=== PATIENT | male | born 1980 | race Caucasian/White ===

== ENCOUNTER 2024-12-19 06:16 | Inpatient (IN) | payer MEDICAID, SELFPAY ==
[2024-12-19 06:17] VITALS: BP 142/97; PULSE 78; RESP 18; TEMP 36.5; O2SAT 98
[2024-12-19 06:18] VITALS: BMI 49.3
--- NOTE | 2024-12-19 06:42 | PD.EDRME ---
Rapid Medical Screening Exam RME Arrival date/time: 12/19/24 06:16 Chief Complaint: General Adult/Misc Complain Vital signs: Vital Signs Temperature 97.7 F 12/19/24 06:17 Pulse Rate 78 12/19/24 06:17 Respiratory Rate 18 12/19/24 06:17 Blood Pressure 142/97 H 12/19/24 06:17 Pulse Oximetry (%) 98 12/19/24 06:17 Oxygen Delivery Method Room Air 12/19/24 06:17 98% room air Vital signs reviewed by provider: Yes RME Narrative: 44-year-old male presents to the emergency department with a chief complaint of not being able to swallow, patient is not able to tell me why he is not able to swallow. Family member tells me that he has difficulty swallowing food and fluids. Continues to consume food and fluids. Continues to urinate. Patient is awaiting a procedure. Dr. Esparza is the patient's doctor.
--- NOTE | 2024-12-19 07:08 | PD.EDADULT ---
ED General RME/HPI General Chief complaint: General Adult/Misc Complain Stated complaint: SORE THROAT, CANT SWALLOW,SOB Time Seen by Provider: 12/19/24 07:01 Arrival date/time: 12/19/24 06:16 RME / HPI RME / HPI narrative: 44-year-old male presents to the emergency department with a chief complaint of not being able to swallow, patient is not able to tell me why he is not able to swallow. Family member tells me that he has difficulty swallowing food and fluids. Continues to consume food and fluids. Continues to urinate. Patient is awaiting a procedure. Dr. Esparza is the patient's doctor. DR. PARR MAIN ED EVALUATION 44 year old male with history of environmental allergies (currently on OTC allergy medication) and hyperlipidemia presents to the ED with a 2-week history of dry mouth and throat. Symptoms have progressively worsened over the past several days, with increasing difficulty swallowing both fluids and solids. He reports an episode last night where he attempted to eat cream of chicken soup, but was unable to swallow it. This morning, he experienced pain while trying to drink water, which he spat out due to discomfort and difficulty. Denies associated nausea, vomiting, fever, chills, headache, or abdominal pain. Related Data Allergies Allergy/AdvReac Type Severity Reaction Status Date / Time No Known Allergies Allergy Verified 12/19/24 06:17 Review of Systems Review of Systems Systems Reviewed: All systems reviewed, normal except as documented Past Medical History Social History SMOKING STATUS: Never smoker ED Exam Narrative Physical exam: Constitutional: Awake, alert, nontoxic, no acute distress, obese HEENT: NC, AT, EOMI, dry lips Neck: Supple CV: RRR, no m/r/g Lungs: CTAB, no w/r/r, no respiratory distress. Abd: Soft, NT, NT, no HSM noted to palpation Extremities: No deformities Neuro: AAOx3 Skin: Warm, dry, intact Course Course Course Narrative: 0830h: Speech therapist has evaluated the patient and reports there may be a possible stricture. Recommended EGD or esophagram to better assess. 1110h: Patient with hypokalemia 2.8. Was unable to complete esophagram as unable to swallow sufficient barium. Given worsening symptoms with inability to tolerate fluids today and low potassium, would benefit from admission for further evaluation. Will discuss with hospitalist team. Discussed with hospitalist team for admission. They will be down to see patient. Quality Measures none Orders Category Date Time Status Admit to Inpatient Status Routine Admission 12/19/24 12:00 Active Patient Condition Routine Admission 12/19/24 12:00 Ordered COVID-19 Screening Questionnaire NOW Care 12/19/24 11:[address] Screening NOW Care 12/19/24 12:09 Active Decision to Admit X1 Care 12/19/24 11:14 Active Insert IV STAT Care 12/19/24 07:32 Active Notify provider NEEDED Care 12/19/24 12:[address] soft tissue neck chest w Stat Exams 12/19/24 12:08 Ordered XR esophogram standard Stat Exams 12/19/24 08:32 Completed CBC Stat Lab 12/19/24 06:59 Completed Comprehensive Metabolic Panel Stat Lab 12/19/24 06:59 Completed Lipase Stat Lab 12/19/24 06:59 Completed Urinalysis Stat Lab 12/19/24 06:44 Ordered POTASSIUM CHL 10 mEq IVPB [Kcl Ivpb] Med 12/19/24 07:38 Discontinued 10 meq in 100 ml IV Q1H Ringers Lactated 1000 ml [Lactated Ringers] 1,000 ml Med 12/19/24 12:10 Active IV 999 mls/hr Sodium Chloride 0.9% 1000 ml [Ns] 1,000 ml Med 12/19/24 07:39 Active IV 125 mls/hr Code Status Routine Oth 12/19/24 12:00 Ordered Vital Signs Vital signs: Vital Signs Temperature 97.7 F 12/19/24 06:17 Pulse Rate 78 12/19/24 06:17 Respiratory Rate 18 12/19/24 06:17 Blood Pressure 142/97 H 12/19/24 06:17 Pulse Oximetry (%) 98 12/19/24 06:17 Oxygen Delivery Method Room Air 12/19/24 06:17 Pulse ox is 98% on room air which is adequate. Critical Care Time Critical Care Time Critical Care Time: No Discharge Plan Plan Patient Disposition: Admit Acute Care w/in Hospital Prescriptions/Referrals Referrals: Abdiel Esparza MD [Primary Care Provider] - In 1 week Problem List Clinical Impression: Dysphagia, Hypokalemia Patient/Caregiver Discharge Instructions Print Language: Romansh Stand Alone Forms: Judy Award Info., Patient Portal Info Letter MDM Narrative MDM hospital course: I, Alia Freeman, am scribing for and in the presence of Dr. Parr. Clinical Information Provided by patient Medical Records Reviewed None No previous ED visits for review Meds/Rx Considered, not Ordered None Labs/Rad/Tests considered, not Ordered None Chronic Illness/Social Conditions which may negatively complicate care or outcome(s)-explain: None or not applicable EKG EKG not done Lab Interpretation Labs: see narrative above Imaging Imaging interpretation: see narrative above Radiology reports / interpretation(s): Ordering Physician: Adela Parr MD Date of Service: 12/19/24 Procedure(s): XR esophogram standard Accession Number(s): [id number] cc: Abdiel Esparza MD; Pantera Majano MD; Adela Parr MD~ Examination: Esophagram standard Upright PA chest single view Soft tissue lateral neck single view 10 spot fluoroscopic films of the esophagus Date and time: December 19, 2024 0948 hours INDICATIONS: Difficulty swallowing beginning one week ago. TECHNIQUE AND FINDINGS: Upright PA chest single view demonstrates normal heart size, lungs are clear Soft tissue lateral neck demonstrates normal epiglottis, no distention hypopharynx The patient could not cooperate to swallow sufficient amounts of barium, continuous coughing IMPRESSION: The patient could not cooperate to swallow sufficient amounts of barium with continuous coughing, consider endoscopy follow-up as clinical warranted Fluoroscopy 0.4 minutes radiation dose 42.11 milligray 10 spot fluoroscopic films Dictated By: Pantera Majano MD Signed By: <Electronically signed by Pantera Majano MD in OV> 12/19/24 1057 Medication Administration(s) Medication Administration History Sodium Chloride (Ns) 1,000 mls @ 125 mls/hr IV .Q8H ROBBIE Stop: 01/18/25 07:38 Last Admin: 12/19/24 08:59 Dose: 125 mls/hr Documented By: CONNOR Lactated Ringer's (Lactated Ringers) 1,000 mls @ 999 mls/hr IV .Q1H1M ONE Stop: 12/19/24 13:10 Discontinued Medications Potassium Chloride (Kcl Ivpb) 10 meq in 100 mls @ 100 mls/hr IV Q1H ROBBIE Stop: 12/19/24 09:37 Last Admin: 12/19/24 10:43 Dose: 100 mls/hr Documented By: Infusion: 12/19/24 10:39 Dose: Infused Documented By: Admin: 12/19/24 08:59 Dose: 100 mls/hr Documented By: CONNOR See above Diagnosis Most likely dx, and/or detailed dx discussion: Dysphagia Hypokalemia Dispositon Disposition: Admit
[2024-12-19 07:20] LABS: Basophils # (Auto) 0.1 Thou/mm3 (0.0-0.2); Basophils % (Auto) 1 % (0-2.5); Eosinophils # (Auto) 0.4 Thou/mm3 (0.0-0.5); Eosinophils % (Auto) 4 % (0-10); Hematocrit 43.1 % (41.0-53.0); Hemoglobin 14.6 g/dL (13.5-16.0); Immature Granulocytes Auto 0.03 Thou/mm3 (0.00-0.00); Lymphocytes # (Auto) 3.8 Thou/mm3 (1.0-4.8); Lymphocytes % (Auto) 31 % (10-50); Mean Corpuscular HGB Conc 33.9 g/dl (31.0-37.0); Mean Corpuscular Hemoglobin 30.7 pg (25.0-35.0); Mean Corpuscular Volume 91 fL (80-100); Monocytes # (Auto) 1.0 Thou/mm3 (0.0-0.8); Monocytes % (Auto) 8 % (0-12); Neutrophils # (Auto) 6.8 Thou/mm3 (1.8-7.7); Neutrophils % (Auto) 56 % (37-80); Nucleated Red Blood Cell # 0.00 Thou/mm3 (0.00-0.00); Nucleated Red Blood Cell % 0 /100 WBC (0); Platelet Count 365 Thou/mm3 (140-440); RDW Standard Deviation 45.0 fL (35.1-43.9); Red Blood Count 4.75 Miln/mm3 (4.50-5.90); White Blood Count 12.2 Thou/mm3 (3.8-10.6)
[2024-12-19 07:33] LABS: Alanine Aminotransferase 49 U/L (10-49); Albumin, Serum 4.5 gm/dL (3.5-5.0); Albumin/Globulin Ratio 1.5 (1.2-2.2); Alkaline Phosphatase 78 U/L (46-116); Anion Gap 14 (7-16); Aspartate Amino Transferase 40 U/L (0-34); BUN/Creatinine Ratio 8 Ratio (12-20); Bilirubin,Total 1.0 mg/dL (0.3-1.2); Blood Urea Nitrogen 9 mg/dL (9-23); Calcium 10.2 mg/dL (8.3-10.6); Calcium (Corrected) 10.2 mg/dL (8.5-10.1); Carbon Dioxide 24.2 mMol/L (20.0-31.0); Chloride 105 mMol/L (98-107); Creatinine (Component) 1.2 mg/dL (0.6-1.3); Estimated Creatinine Clearance 106.4 mL/min (>60); Globulin 3.0 gm/dL (2.3-3.5); Glucose 116 mg/dL (74-106); Lipase 38 U/L (12-53); Osmolality,Calculated 284 (275-295); Potassium 2.8 mMol/L (3.4-5.1); Sodium 143 mMol/L (136-145); Total Protein 7.5 gm/dL (5.7-8.2); eGFR > 60 See Note
[2024-12-19 08:12] VITALS: BP 151/92; PULSE 87; RESP 18; TEMP 36.8; O2SAT 96
--- NOTE | 2024-12-19 08:32 | XR_ITS ---
Examination: Esophagram standard Upright PA chest single view Soft tissue lateral neck single view 10 spot fluoroscopic films of the esophagus Date and time: December 19, 2024 0948 hours INDICATIONS: Difficulty swallowing beginning one week ago. TECHNIQUE AND FINDINGS: Upright PA chest single view demonstrates normal heart size, lungs are clear Soft tissue lateral neck demonstrates normal epiglottis, no distention hypopharynx The patient could not cooperate to swallow sufficient amounts of barium, continuous coughing IMPRESSION: The patient could not cooperate to swallow sufficient amounts of barium with continuous coughing, consider endoscopy follow-up as clinical warranted Fluoroscopy 0.4 minutes radiation dose 42.11 milligray 10 spot fluoroscopic films
[2024-12-19] MEDS: SODIUM CHLORIDE 0.9% 1000 ML 1,000 ML 125 ML IV (08:59)
[2024-12-19] MEDS: POTASSIUM CHL 10 mEq IVPB 10 MEQ/100 ML BAG 100 MEQ IV ×2 (08:59→10:43)
--- NOTE | 2024-12-19 10:10 | PCS.ST ---
Bed swallow evaluation completed by WEB ADMINISTRATOR. Spoke with Dr. Randall. Recommendation to change Modified Baruim Swallow order to an Esophagram for esophageal symptoms. ST services will follow up as needed.
[2024-12-19 10:44] VITALS: BP 139/87; PULSE 86; RESP 18; TEMP 36.6; O2SAT 94
--- NOTE | 2024-12-19 12:08 | XR_ITS ---
Examination: CT soft tissue neck with intravenous contrast CT chest with intravenous contrast 2-D sagittal and coronal reconstructions Exam date and time: December 19, 2024 1406 hours INDICATIONS: Worsening difficulty swallowing beginning one month ago CTDI:vol (mGy) 52.9 DLP: (mGycm) 1682 Technique: Multiple axial sections of the soft tissue neck thorax have been obtained. Sections have been obtained, 3 mm slice thickness. Mediastinal and lung density settings have been obtained. Intravenous contrast administered, 60 cc Isovue-370. 2-D sagittal, coronal images obtained. Low dose protocols were performed. One or more of the following dose reduction techniques were used; automated exposure control, adjustment of the mA and/or KV according to patient size, use of iterative reconstruction technique. Findings: Chronic left maxillary sinus disease Symmetrical nasopharynx oropharynx No pathologic carotid triangle lymphadenopathy The larynx appears normal Thyroid lobes are not enlarged Normal epiglottis No thoracic degenerative aneurysm dilatation No pulmonary artery emboli Mild left anterior descending coronary artery calcification No paratracheal tracheobronchial or bronchopulmonary adenopathy The esophagus does not appear dilated 2 mm pulmonary nodule right upper lobe No visualized liver or splenic lesion No pancreatic mass Minimal wall thickening involving the distal esophagus Normal adrenal glands Kidneys partially visualized no hydronephrosis Moderate thoracic spondylosis IMPRESSION: No soft tissue neck mass Cervical esophagus is not dilated No mediastinal lymphadenopathy 2 mm pulmonary nodule right upper lobe No pneumonia or pulmonary edema or pleural disease Thoracic esophagus does not appear distended Mild wall thickening distal esophagus, consider reflux esophagitis Given the patient's presentation, consider standard fluoroscopically guided esophagram follow-up
[2024-12-19 13:17] VITALS: BP 138/90; PULSE 84; RESP 18; TEMP 36.6; O2SAT 96
[2024-12-19] MEDS: RINGERS LACTATED 1000 ML 1,000 ML 999 ML IV (13:23)
--- NOTE | 2024-12-19 13:25 | EKG_ITS ---
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
--- NOTE | 2024-12-19 14:07 | PC.CC ---
Patient is a 44 year-old male who presents to the hospital for Dysphagia. MAINTENANCE MACHINISTTenisha and ASWSara made [id number] contact with patient. MAINTENANCE MACHINIST introduced self, role, and reason for visit. Patient appeared alert and oriented to self, location, and situation. MAINTENANCE MACHINIST discussed limits of confidentiality. Patient was pleasant and engaged in initial assessment. Patient confirmed information on demographics and reports to living at home with his mother, Shobha Dye . Per patient, his mother is his medical decision maker. At home patient reports he ambulates independently and is able to complete his own ADLs. Patient does not require any DME and is not a dialysis patient. Patient's primary provider is Abdiel Esparza his pharmacy of choice is [facility]. Upon discharge patient plans to return back home. account services representative to follow up with any discharge needs.
--- NOTE | 2024-12-19 15:56 | ESHP_ITS ---
<Statement entered by Hugh Handley MD - 12/20/24 13:46> I have reviewed the note and agree with the resident's assessment & plan with exceptions as below. I have personally reviewed labs, imaging, home meds/prior records, examined the patient, formulated and discussed management plan with the IM team. Patient examined at bedside today. Patient has bee experiencing worsening dysphagia, unsure if it is oropharyngeal, mechanical. Patient does have history of having adenoids removed, and chronic allergic rhinitis, however He is unsure why he is having the symptoms. He denies any recent travel, changes to his diet, however says that he has had some weight loss since the onset of the symptoms which has been about 2 weeks. Says he was able to tolerate some food and liquids, however is worsening. He does endorse some changes to his voice as well. Denies any smoking, substance abuse, and alcohol at this time. He does say that he has been sick with sinus infections in the past and has taken antibiotics for the past 3 months. He says he used to have an ENT, however that physician has retired. Will consult GI and order a CT soft tissue neck for further evaluation after patient has failed fluoroscopy. Patient may need EGD and further evaluation from speech therapy. Unlikely that there is a mass of some sort and the distal esophagus due to his risk factors, however we will need to further assess with EGD and patient may need modified barium swallow to evaluate for any stenosis. He does take omeprazole chronically. Repeat hematology and chemistry in AM. #Dysphagia DDx: Oropharyngeal, mechanical obstruction, esophageal stenosis, hiatal hernia Plan: ? GI consulted, appreciate recommendations ? CT soft tissue neck ? Maintenance fluids ? Bedside blood glucose every 6 hours ? Speech therapy referral Hugh Handley, PGY-2 Internal Medicine Documentation for date of: 12/19/24 HPI History of Present Illness History of present illness: 44 year old male with PMHx of adenoidectomy x2 and tonsillectomy as a child, GERD, many seasonal allergies, asthma, hypercholesterolemia, and epilepsy as a child (most recent seizure aged 9) who presents with progressive dysphagia and mouth dryness for the last two weeks. Upon initial evaluation patient was seen with his mother in the room. He speaks with a lisp and denies history of learning disorder or developmental delay. Patient states 2-3 weeks ago he began having trouble eating solids and he may have lost 12 -20 lbs since this time. He denies drooling but endorses difficulty initiating swallowing and episodes of words not coming out right that he attributes to a very dry mouth/throat, his mother endorses the story. One week ago soup became more difficult for him to swallow noodles not possible . He is unable to throw up when he is nauseas and has episodes of dry heaving without nasal regurgitation. He is now unable to drink water and feels short of breath when he attempts. He describes discomfort in his upper throat and no discomfort in his lower chest when discussing trouble swallowing. ED Course Summary: Patient presented with hypokalemia 2.8 and dry mouth. Was unable to complete esophagram as unable to swallow sufficient barium. IV NS, LR and K+ was administered in ED. Patient sent for CT neck. Speech therapist has evaluated the patient and reports there may be a possible stricture. Recommended EGD or esophagram to better assess. Medical Hx: Obesity, allergies, asthma, GERD, epileptic aged 4-10 Medications: Lipitor, flucatisone QD Allergies: Pollen, dust, causes coughing Surgical history: Adenoidectomy x2 as a child, tonsillectomy as a child Fhx: Brother 10 years ago durin dialysis. Father during heart procedure. Mother has T2Dm and Ton's esophagus Soc Hx: Lives with his mom for the last 10 years in [facility] [place] to a lot of [employer]. They have a dog and a cat. 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 graduated highschool, denies history of learning disability or deelopmental delay Alc: denies Smoking: denies Recreational drug: denies All 12 systems reviewed and were negative except otherwise stated in HPI. Patient admitted for dysphagia work up. Exam Vital Signs Temp Pulse Resp BP Pulse Ox O2 Del Method 97.8 F 84 18 138/90 H 96 Room Air 12/19/24 13:17 12/19/24 13:17 12/19/24 13:17 12/19/24 13:17 12/19/24 13:17 12/19/24 13:17 Narrative Exam Constitutional: Awake, alert, nontoxic, no acute distress, obese HEENT: NC, AT, EOMI, dry lips, narrow glottis, diffusely patchy white tongue able to be scraped off Neck: Supple, no masses felt, no thryomegaly noted, no abnormal or enlarged lymph nodes felt around the clavicle. CV: RRR, no m/r/g Lungs: CTAB, no w/r/r, no respiratory distress. Abd: Soft, NT, NT, no HSM noted to palpation Extremities: No deformities, no edema or ashes. Neuro: AAOx3 Skin: Warm, dry, intact Results: Labs 12/20/24 05:12 12/20/24 05:12 Labs: Short CBC 12/19/24 Range/Units 06:59 WBC 12.2 H (3.8-10.6) Thou/mm3 Hgb 14.6 (13.5-16.0) g/dL Hct 43.1 (41.0-53.0) % Plt Count 365 (140-440) Thou/mm3 BMP 12/19/24 06:59 Sodium 143 Potassium 2.8 L Chloride 105 Carbon Dioxide 24.2 BUN 9 Creatinine 1.2 Glucose 116 H Calcium 10.2 Liver Function 12/19/24 Range/Units 06:59 Total Bilirubin 1.0 (0.3-1.2) mg/dL AST 40 H (0-34) U/L ALT 49 (10-49) U/L Alkaline Phosphatase 78 (46-116) U/L Albumin 4.5 (3.5-5.0) gm/dL Quality Measures Quality Measures none Medications Home Medications and Allergies Home Medications ?Medication ?Instructions ?Recorded ?Confirmed ?Type atorvastatin 20 mg tablet 40 mg PO DAILY 12/19/2412/07 History fluticasone propionate 50 2 spray intranasal DAILY 12/19/24 History mcg/actuation nasal spray,suspension ipratropium bromide 42 mcg (0.06 2 spray intranasal BI D 12/19/24 12/19/24 History %) nasal spray montelukast 10 mg tablet 10 mg PO DAILY 12/19/2412/07 History omeprazole 40 mg capsule,delayed 40 mg PO DAILY 12/19/24 History release Allergies Allergy/AdvReac Type Severity Reaction Status Date / Time No Known Allergies Allergy Verified 12/19/24 06:17 Visit Medications Acetaminophen (Acetaminophen 325 Mg Tablet) 650 mg PO Q6H PRN PRN Reason: Fever >101.5 or pain 1-3 Stop: 01/18/25 13:19 Albuterol/Ipratropium (Albuterol/Ipratropium (Duoneb) Rt Maria Elena 3 Ml Nebu) 3 ml INH PRN PRN PRN Reason: asthma Stop: 01/18/25 13:19 Dextrose (Dextrose 50%-Water Inj 50 Ml Syringe) 25 ml IV Q15MIN PRN PRN Reason: BG 50-70 responsive npo pt Stop: 01/18/25 13:27 Dextrose (Dextrose 50%-Water Inj 50 Ml Syringe) 50 ml IV Q15MIN PRN PRN Reason: BG <50 OR BG <70 & pt unresponsive Stop: 01/18/25 13:27 Glucagon (Glucagon Inj 1 Mg Vial) 1 mg IM Q15MIN PRN PRN Reason: BG <70, and no IV access Heparin Sodium (Porcine) (Heparin Sod Inj 5000 Unit/Ml Vial) 5,000 unit SC Q12HR [facility] Stop: 01/02/25 20:59 Sodium Chloride (Ns) 1,000 mls @ 125 mls/hr IV .Q8H ROBBIE Stop: 01/18/25 07:38 Last Admin: 12/19/24 08:59 Dose: 125 mls/hr Potassium Chloride/Dextrose/Sod Cl (Kcl 20 Meq/L In D5-1/2ns) 20 meq in 1,000 mls @ 75 mls/hr IV .[id number] [facility] Stop: 12/20/24 02:49 Ondansetron HCl (Ondansetron Inj 2 Mg/Ml Inj 2 Ml) 4 mg IVP Q6H PRN; Protocol PRN Reason: NAUSEA OR VOMITING Stop: 01/18/25 13:19 Pantoprazole Sodium (Pantoprazole Inj 40 Mg Vial) 40 mg IVP QDAY [facility] Stop: 01/19/25 08:59 Discontinued Medications Potassium Chloride (Kcl Ivpb) 10 meq in 100 mls @ 100 mls/hr IV Q1H ROBBIE Stop: 12/19/24 09:37 Last Infusion: 12/19/24 12:05 Dose: Infused Lactated Ringer's (Lactated Ringers) 1,000 mls @ 999 mls/hr IV .Q1H1M ONE Stop: 12/19/24 13:10 Last Admin: 12/19/24 13:23 Dose: 999 mls/hr Assessment & Plan Plan 44 year old male with PMHx of adenoidectomy x2 and tonsillectomy as a child, GERD, many seasonal allergies, asthma, hypercholesterolemia, and epilepsy as a child (most recent seizure aged 9) who presents with progressive dysphagia and mouth dryness for the last two weeks. Patient now unable to tolerate liquids and presents with hypokalemia most likely secondary to nutritional deficiencies currently admitted for dysphagia work up. #Dysphagia: oropharyngeal vs esophageal Patient has progressive inability to swallow solid to liquid foods over the course of 2 weeks. Unable to perform barium swallow in ED. Neck CT showed mild wall thickening of distal esophagus. Speech and swallow eval reported possible stricture with globus sensation as well indicating possible esophageal etiology. Patient has history of GERD therefore barrets esophagus/stricutre included in the differential. Other differentials can include fungal as evidenced by white scrapeable tissue covering surface of his tongue vs autoimmune such as sicca syndrome contributing to his mouth's dryness. Plan: -Repeat barium swallow -Monitor for signs of hypoxia -Diet NPO #Hypokalemia Most likely 2/2 nutritional deficiency. Fluids and potassium given in ED Plan: -Continue to monitor -Replete when K+< 3.5 #Dry mouth #C/f rachid 2/2 flucatisone use Dry mouth is most likely a result of poor fluid intake from dysphagia, however could be a result of sicca syndrome. Rachid most likely due to daily flucatisone use. Plan: -Autoimmunue work up -Flucanazole mouth wash once patient not a choking risk #GERD Plan: -Continue home meds when tolerating PO or consider IV formulary -Omeprazole 40mg QD #Seasonal allergies, #asthma Plan: -Continue home meds when tolerating PO or consider IV formulary -Montelukast 10mg PO QD -Ipratropium bromide intranasal BID -Flucatisone propionate #Hypercholesterolemia Plan: -Continue home meds when tolerating PO: atorvastatin 40mg QD Health Maintenance: DVT prophylaxis: Heparin Diet: NPO Guo: None Lines: PIV Supplemental O2: RA, nasal cannula if needed CODE STATUS: Full Disposition: Admitted for dysphagia work up Patient seen and reviewed with attending Dr. Antoine and supervising resident Dr. Ender Rosa MD PGY-1 Attending Provider Attestation/Addendum I have discussed and was present for the essential components of the history, physical examination, diagnosis, and treatment plan with the resident. I agree with the patient's care as documented by the resident and amended herein by me. Hugo Antoine DO. Although this document has been carefully reviewed, there may still be some phonetic and other typographical errors. These errors are purely grammatical due to imperfections in the software program and should not be construed in any way to compromise the substance of the patient's medical care during this visit. Patient admitted for dysphagia, started on PPI, gastroenterology consulted, CT neck ordered to rule out any possible mechanical cause versus mass effect etc. Patient will likely need an EGD prior to discharge.
--- NOTE | 2024-12-19 16:09 | PC.NURSE ---
REPORT GIVEN TO NICOLE DURANT AT [facility]
[2024-12-19 16:52] VITALS: BMI 49.3
[2024-12-19] MEDS: KCL 20 mEq/L in D5-1/2NS 20 MEQ/1,000 ML BAG 75 MEQ IV (17:29)
[2024-12-19 20:00] VITALS: BP 124/75; PULSE 81; RESP 18; TEMP 36; O2SAT 98
--- NOTE | 2024-12-19 21:22 | PD.IMCONS ---
HPI Data of Consult Requesting Physician: Ronak Antoine DO Primary Care Provider: Abdiel Esparza MD Consult Narrative Reason for consult: Dysphagia History of present illness: 44-year-old male came to the emergency room because of difficulty swallowing Last night he tried to eat cream of wheat soup and he threw it back up And attempted esophagram in the hospital also resulted in a lot of coffee and patient could not swallow CT scan of the soft tissue neck is negative Thickening which is mild of the distal esophageal lining cc:: cc: Ronak Antoine DO Review of Systems Review of Systems Systems Reviewed: All systems reviewed, normal except as documented Meds Home Medications and Allergies Home Medications ?Medication ?Instructions ?Recorded ?Confirmed ?Type atorvastatin 20 mg tablet 40 mg PO DAILY 12/19/24 12/19/24 History fluticasone propionate 50 2 spray intranasal DAILY 12/19/24 12/19/24 History mcg/actuation nasal spray,suspension ipratropium bromide 42 mcg (0.06 2 spray intranasal BID 12/19/24 12/19/24 History %) nasal spray montelukast 10 mg tablet 10 mg PO DAILY 12/19/24 12/19/24 History omeprazole 40 mg capsule,delayed 40 mg PO DAILY 12/19/24 12/19/24 History release Allergies Allergy/AdvReac Type Severity Reaction Status Date / Time No Known Allergies Allergy Verified 12/19/24 06:17 Exam Vital Signs Temp Pulse Resp BP Pulse Ox O2 Del Method 96.8 F 81 18 124/75 98 Room Air 12/19/24 20:00 12/19/24 20:00 12/19/24 20:00 12/19/24 20:00 12/19/24 20:00 12/19/24 20:00 Constitutional Comments: Alert oriented Routine Respiratory Exam Comments: Normal to auscultation Routine Abdominal Exam Comments: Soft nontender Results Labs 12/19/24 06:59 12/19/24 06:59 Labs: Short CBC 12/19/24 Range/Units 06:59 WBC 12.2 H (3.8-10.6) Thou/mm3 Hgb 14.6 (13.5-16.0) g/dL Hct 43.1 (41.0-53.0) % Plt Count 365 (140-440) Thou/mm3 BMP 12/19/24 06:59 Sodium 143 Potassium 2.8 L Chloride 105 Carbon Dioxide 24.2 BUN 9 Creatinine 1.2 Glucose 116 H Calcium 10.2 Liver Function 12/19/24 Range/Units 06:59 Total Bilirubin 1.0 (0.3-1.2) mg/dL AST 40 H (0-34) U/L ALT 49 (10-49) U/L Alkaline Phosphatase 78 (46-116) U/L Albumin 4.5 (3.5-5.0) gm/dL Assessment and Plan Additional Assessment & Plan Additional Plan: # Progressive dysphagia Plan Fiberoptic esophagogastroduodenoscopy with possible biopsy possible therapeutic intervention under intravenous moderate sedation N.p.o. midnight tonight except meds Which are scheduled for tomorrow afternoon Thank you once again for the opportunity to participate in the care of this patient
[2024-12-19] MEDS: HEPARIN SOD INJ 5000 UNIT/ML VIAL SC (22:40)
[2024-12-20] VITALS (15 sets, daily range): BP systolic 91–133; BP diastolic 66–87; PULSE 71–115; RESP 12–20; TEMP 36–36.8; O2SAT 92–100; BMI 49.4
[2024-12-20 05:34] LABS: Basophils # (Auto) 0.1 Thou/mm3 (0.0-0.2); Basophils % (Auto) 1 % (0-2.5); Eosinophils # (Auto) 0.4 Thou/mm3 (0.0-0.5); Eosinophils % (Auto) 4 % (0-10); Hematocrit 37.2 % (41.0-53.0); Hemoglobin 12.2 g/dL (13.5-16.0); Immature Granulocytes Auto 0.01 Thou/mm3 (0.00-0.00); Lymphocytes # (Auto) 3.0 Thou/mm3 (1.0-4.8); Lymphocytes % (Auto) 33 % (10-50); Mean Corpuscular HGB Conc 32.8 g/dl (31.0-37.0); Mean Corpuscular Hemoglobin 30.6 pg (25.0-35.0); Mean Corpuscular Volume 93 fL (80-100); Monocytes # (Auto) 0.8 Thou/mm3 (0.0-0.8); Monocytes % (Auto) 8 % (0-12); Neutrophils # (Auto) 5.1 Thou/mm3 (1.8-7.7); Neutrophils % (Auto) 55 % (37-80); Nucleated Red Blood Cell # 0.00 Thou/mm3 (0.00-0.00); Nucleated Red Blood Cell % 0 /100 WBC (0); Platelet Count 283 Thou/mm3 (140-440); RDW Standard Deviation 47.2 fL (35.1-43.9); Red Blood Count 3.99 Miln/mm3 (4.50-5.90); White Blood Count 9.3 Thou/mm3 (3.8-10.6)
[2024-12-20] MEDS: SODIUM CHLORIDE 0.9% 1000 ML 1,000 ML 125 ML IV ×2 (06:45→21:49)
[2024-12-20 06:59] LABS: INR 1.1 (0.9-1.3); Partial Thromboplastin Time 25.9 Seconds (22.0-36.0); Prothrombin Time 12.3 Seconds (9.0-12.2)
[2024-12-20 07:50] LABS: Alanine Aminotransferase 41 U/L (10-49); Albumin, Serum 3.8 gm/dL (3.5-5.0); Albumin/Globulin Ratio 1.5 (1.2-2.2); Alkaline Phosphatase 61 U/L (46-116); Anion Gap 10 (7-16); Aspartate Amino Transferase 30 U/L (0-34); BUN/Creatinine Ratio 8 Ratio (12-20); Bilirubin,Total 0.8 mg/dL (0.3-1.2); Blood Urea Nitrogen 7 mg/dL (9-23); Calcium 9.2 mg/dL (8.3-10.6); Calcium (Corrected) 9.4 mg/dL (8.5-10.1); Carbon Dioxide 26.0 mMol/L (20.0-31.0); Chloride 109 mMol/L (98-107); Creatinine (Component) 0.9 mg/dL (0.6-1.3); Estimated Creatinine Clearance 141.9 mL/min (>60); Globulin 2.5 gm/dL (2.3-3.5); Glucose 110 mg/dL (74-106); Magnesium 1.7 mg/dL (1.6-2.6); Osmolality,Calculated 287 (275-295); Phosphorous 2.0 mg/dL (2.4-5.1); Potassium 3.4 mMol/L (3.4-5.1); Sodium 145 mMol/L (136-145); Thyroid Stimulating Hormone 1.02 uIU/mL (0.55-4.78); Total Protein 6.3 gm/dL (5.7-8.2); eGFR > 60 See Note
--- NOTE | 2024-12-20 09:29 | ESPR_ITS ---
<Statement entered by Hugh Handley MD - 12/20/24 14:41> I have reviewed the note and agree with the resident's assessment & plan with exceptions as below. I have personally reviewed labs, imaging, home meds/prior records, examined the patient, formulated and discussed management plan with the IM team. Patient examined at bedside today. No acute overnight events. Patient had CT soft tissue scan which had not showed any lymphadenopathy or masses at the time. GI on consult, appreciate recommendations. Patient to get EGD later today by Dr. Campos. Continuing maintenance fluids. Patient may need modified barium swallow for further workup. Speech on consult, appreciate recommendations. Repeat hematology and chemistry in the a.m. Hugh Handley, PGY-2 Internal Medicine Documentation for date of: 12/20/24 Subjective Subjective Interval history: Patient examined bedside breathing fine on RA. He is in good spirits. When clarifying his weight loss, the patient is hungry but acknowledged that losing some weight (confirms 20lbs in the last 2 weeks) is in some aspects good for him if done in a healthy manner. He is agreeable to the EGD procedure planned by Dr. Campos today. He reports some ongoing occasional hoarseness he attributes to mouth dryness, but it does not bother him too much. He denies fevers, chills, night sweats, chest pain, discomfort. Exam Vital Signs Temp Pulse Resp BP Pulse Ox O2 Del Method 97.1 F 71 19 114/75 96 Room Air 12/20/24 08:00 12/20/24 08:00 12/20/24 08:00 12/20/24 08:00 12/20/24 08:00 12/20/24 08:00 Narrative Exam Constitutional: Awake, alert, nontoxic, no acute distress, obese HEENT: NC, AT, EOMI, dry lips, narrow glottis, (improved) patchy white tongue able to be scraped off, no lateral tongue plaques or bucosal [place] striae noted. Neck: Supple, no masses felt, no thryomegaly noted, no abnormal or enlarged lymph nodes felt around the clavicle. CV: RRR, no m/r/g Lungs: CTAB, no w/r/r, no respiratory distress. Abd: Soft, NT, NT, no HSM noted to palpation Extremities: No deformities, no edema or ashes. Neuro: AAOx3 Skin: Warm, dry, intact Objective Labs 12/21/24 05:10 12/21/24 05:10 Labs: Laboratory Results - last 24 hr 12/20/24 12/20/24 05:12 06:21 WBC 9.3 RBC 3.99 L Hgb 12.2 L D Hct 37.2 L MCV 93 MCH 30.6 MCHC 32.8 RDW Std Deviation 47.2 H Plt Count 283 D Neut % (Auto) 55 Lymph % (Auto) 33 [place] % (Auto) 8 Eos % (Auto) 4 Baso % (Auto) 1 Neut # (Auto) 5.1 Lymph # (Auto) 3.0 [place] # (Auto) 0.8 Eos # (Auto) 0.4 Baso # (Auto) 0.1 Immature Gran # (Auto) 0.01 H Absolute Nucleated RBC 0.00 Immature Gran % 0 Nucleated RBC % 0 PT 12.3 H INR 1.1 APTT 25.9 Sodium 145 Potassium 3.4 D Chloride 109 H Carbon Dioxide 26.0 Anion Gap 10 BUN 7 L Creatinine 0.9 Estim Creat Clear Calc 141.9 eGFR > 60 BUN/Creatinine Ratio 8 L Glucose 110 H Calculated Osmolality 287 Calcium 9.2 Corrected Calcium 9.4 Phosphorus 2.0 L Magnesium 1.7 Total Bilirubin 0.8 AST 30 ALT 41 Alkaline Phosphatase 61 D Total Protein 6.3 Albumin 3.8 D Globulin 2.5 Albumin/Globulin Ratio 1.5 TSH 1.02 Quality Measures Quality Measures none Assessment & Plan Assessment Current Active Medications: Generic Name Dose Route Start Last Admin Trade Name Freq PRN Reason Stop Dose Admin Acetaminophen 650 mg 12/19/24 13:20 Acetaminophen 325 Mg Tablet PO 01/18/25 13:19 Q6H PRN Fever >101.5 or pain 1-3 Albuterol/Ipratropium 3 ml 12/19/24 13:20 Albuterol/Ipratropium (Duoneb) Rt Maria Elena 3 Ml Nebu INH 01/18/25 13:19 PRN PRN asthma Atorvastatin Calcium 40 mg 12/19/24 21:00 12/19/24 22:41 Atorvastatin Calcium 20 Mg Tablet PO 01/18/25 20:59 Not Given HS ROBBIE Dextrose 25 ml 12/19/24 13:28 Dextrose 50%-Water Inj 50 Ml Syringe IV 01/18/25 13:27 Q15MIN PRN BG 50-70 responsive npo pt Dextrose 50 ml 12/19/24 13:28 Dextrose 50%-Water Inj 50 Ml Syringe IV 01/18/25 13:27 Q15MIN PRN BG <50 OR BG <70 & pt unresponsive Glucagon 1 mg 12/19/24 13:28 Glucagon Inj 1 Mg Vial IM Q15MIN PRN BG <70, and no IV access Heparin Sodium (Porcine) 5,000 unit 12/19/24 21:00 12/19/24 22:40 Heparin Sod Inj 5000 Unit/Ml Vial SC 01/02/25 20:59 5,000 unit Q12HR ROBBIE Administration Sodium Chloride 1,000 mls @ 125 mls/hr 12/19/24 07:39 12/20/24 06:45 Ns IV 01/18/25 07:38 125 mls/hr .Q8H ROBBIE Administration Potassium Phosphate 15 mmol in 250 mls @ 62.5 mls/hr 12/20/24 08:39 Pot Phos 15 Mmol In Ns 250 Ml IV 12/20/24 12:38 X1 ONE Ondansetron HCl 4 mg 12/19/24 13:20 Ondansetron Inj 2 Mg/Ml Inj 2 Ml IVP 01/18/25 13:19 Q6H PRN NAUSEA OR VOMITING Protocol Pantoprazole Sodium 40 mg 12/20/24 09:00 Pantoprazole Inj 40 Mg Vial IVP 01/19/25 08:59 QDAY ROBBIE Plan 44 year old male with PMHx of adenoidectomy x2 and tonsillectomy as a child, GERD, many seasonal allergies, asthma, hypercholesterolemia, and epilepsy as a child (most recent seizure aged 9) who presents with progressive dysphagia and mouth dryness for the last two weeks. Patient now unable to tolerate liquids and presents with hypokalemia most likely secondary to nutritional deficiencies currently admitted for dysphagia work up. Hypokalemia has since resolved. Hypophosphatemia is being treated. Awaiting EGD 12/20. #Dysphagia: oropharyngeal vs esophageal Patient has progressive inability to swallow solid to liquid foods over the course of 2 weeks. Unable to perform barium swallow in ED. Neck CT showed mild wall thickening of distal esophagus. Speech and swallow eval reported possible stricture with globus sensation as well indicating possible esophageal etiology. Patient has history of GERD therefore barrets esophagus/stricture included in the differential. Other differentials can include fungal as evidenced by white scrapeable tissue covering surface of his tongue vs autoimmune such as sicca syndrome contributing to his mouth's dryness. Plan: -GI consulted: Awaiting EGD 12/20 -Repeat barium swallow -Monitor for signs of hypoxia -Diet NPO #Hypophosphatemia Most likely 2/2 nutritional deficiency. Fluids and phosphate given Plan: -Continue to monitor -Replete when P-<2.4 #Hypokalemia -Resolved Most likely 2/2 nutritional deficiency. Fluids and potassium given in ED Plan: -Continue to monitor -Replete when K+< 3.5 #Dry mouth #C/f rachid 2/2 flucatisone use Dry mouth is most likely a result of poor fluid intake from dysphagia, however could be a result of sicca syndrome. Rachid most likely due to daily flucatisone use. Plan: -Autoimmunue work up -Flucanazole mouth wash once patient not a choking risk #GERD Plan: -Continue home meds when tolerating PO or consider IV formulary -Omeprazole 40mg QD #Seasonal allergies, #asthma Plan: -Continue home meds when tolerating PO or consider IV formulary -Montelukast 10mg PO QD -Ipratropium bromide intranasal BID -Flucatisone propionate #Hypercholesterolemia Plan: -Continue home meds when tolerating PO: atorvastatin 40mg QD Health Maintenance: DVT prophylaxis: Heparin Diet: NPO Guo: None Lines: PIV Supplemental O2: RA, nasal cannula if needed CODE STATUS: Full Disposition: Admitted for dysphagia work up Patient seen and reviewed with attending Dr. Antoine and supervising resident Dr. Handley. Note written by Bernardo Rosa MD PGY-1 Attending Provider Attestation/Addendum I have discussed and was present for the essential components of the history, physical examination, diagnosis, and treatment plan with the resident. I agree with the patient's care as documented by the resident and amended herein by me. Hugo Antoine DO. Although this document has been carefully reviewed, there may still be some phonetic and other typographical errors. These errors are purely grammatical due to imperfections in the software program and should not be construed in any way to compromise the substance of the patient's medical care during this visit. Patient seen and evaluated this AM. No acute events overnight, EGD pending later this afternoon for the patient's dysphagia. CT soft tissue of the patient's neck did not demonstrate any mass or other physical abnormalities in the area.
[2024-12-20] MEDS: POT PHOS 15 mMol in NS 250 ML 15 MMOL/250 ML BAG 62.5 MMOL IV (09:35)
[2024-12-20] MEDS: HEPARIN SOD INJ 5000 UNIT/ML VIAL SC ×2 (09:35→21:11)
[2024-12-20 14:13] LABS: Cholesterol 116 mg/dL (132-200); Triglycerides 81 mg/dL (30-150)
[2024-12-20 14:49] LABS: Cardiac Risk Estimate 5.3 RATIO (4.0-6.7); HDL Cholesterol 22 mg/dL (40-60); LDL Cholesterol,Calculated 78 mg/dL (0-130)
[2024-12-20 18:02] LABS: Amorphous Crystals,Urine Present (Absent); Bilirubin,Urine Negative (Negative); Blood,Urine Negative (Negative); Budding Yeast,Urine Present; Collection Type, Urine Clean Catch; Color,Urine Orange (Lt Yel-Yel); Glucose, Urine Negative (Negative); Ketones,Urine 1+ (Negative); Leukocyte Esterase,Urine Negative (Negative); Nitrite,Urine Negative (Negative); PH,Urine 6.0 (5.0-7.0); Protein,Urine Trace (Neg - Trace); RBC,Urine 16 /hpf (0-3); Specific Gravity,Urine 1.036 (1.001-1.035); Squamous Epithelial Cell,Urine 2 /hpf (0-5); Urobilinogen,Urine 3.0 mg/dL (0.0-1.0); WBC,Urine 156 /hpf (0-5)
[2024-12-20 18:17] LABS: Clarity,Urine Turbid (Clear/Hazy)
--- NOTE | 2024-12-20 19:06 | PC.NURSE ---
Pt to endocopy via gurney.
--- NOTE | 2024-12-20 20:14 | SUR.PHASEI ---
Pt. arrived to recovery via gurney, eyes open, AAOx3, VSS, lung sounds clear, equal expansion enrrique., no c/o pain or nausea at this time. Report received from Luanne DURANT.
--- NOTE | 2024-12-20 20:40 | SUR.PHASEI ---
Pt. transferred to room 369 via PAUL serra, no c/o pain or nausea at this time, pt. tolerating ice chips, IV saline flushed and locked, Nayely DURANT assumed care of pt.
--- NOTE | 2024-12-20 20:44 | PC.NURSE ---
Pt back to room from endoscopy via gurney. No S/Sx of pain or discomfort, placed back in bed comfortably.
[2024-12-20] MEDS: ATORVASTATIN CALCIUM 20 MG TABLET 40 MG PO (21:11)
[2024-12-21] VITALS: BP 101/69; PULSE 83; RESP 17; TEMP 36.1; O2SAT 92
[2024-12-21 04:00] VITALS: BP 103/65; PULSE 65; RESP 16; TEMP 36.1; O2SAT 97
[2024-12-21] MEDS: SODIUM CHLORIDE 0.9% 1000 ML 1,000 ML 125 ML IV ×3 (05:46→22:37)
--- NOTE | 2024-12-21 05:51 | PC.NURSE ---
Pt hasn't had a bowel movement since 12/18/24. Pt has been on NPO diet since admission until dinner last night after EGD procedure when he was started on mechanically altered diet. Pt did not tolerate diet due to dysphagia so ended up just drinking apple juice. Dr. Sharp was made aware. MD to let the day team know.
[2024-12-21 05:58] LABS: Basophils # (Auto) 0.1 Thou/mm3 (0.0-0.2); Basophils % (Auto) 1 % (0-2.5); Eosinophils # (Auto) 0.4 Thou/mm3 (0.0-0.5); Eosinophils % (Auto) 4 % (0-10); Hematocrit 35.4 % (41.0-53.0); Hemoglobin 11.9 g/dL (13.5-16.0); Immature Granulocytes Auto 0.01 Thou/mm3 (0.00-0.00); Lymphocytes # (Auto) 3.6 Thou/mm3 (1.0-4.8); Lymphocytes % (Auto) 45 % (10-50); Mean Corpuscular HGB Conc 33.6 g/dl (31.0-37.0); Mean Corpuscular Hemoglobin 31.6 pg (25.0-35.0); Mean Corpuscular Volume 94 fL (80-100); Monocytes # (Auto) 0.6 Thou/mm3 (0.0-0.8); Monocytes % (Auto) 8 % (0-12); Neutrophils # (Auto) 3.4 Thou/mm3 (1.8-7.7); Neutrophils % (Auto) 42 % (37-80); Nucleated Red Blood Cell # 0.00 Thou/mm3 (0.00-0.00); Nucleated Red Blood Cell % 0 /100 WBC (0); Platelet Count 263 Thou/mm3 (140-440); RDW Standard Deviation 47.6 fL (35.1-43.9); Red Blood Count 3.77 Miln/mm3 (4.50-5.90); White Blood Count 8.0 Thou/mm3 (3.8-10.6)
[2024-12-21 06:07] LABS: INR 1.1 (0.9-1.3); Prothrombin Time 12.4 Seconds (9.0-12.2)
[2024-12-21 06:19] LABS: Alanine Aminotransferase 45 U/L (10-49); Albumin, Serum 3.3 gm/dL (3.5-5.0); Albumin/Globulin Ratio 1.4 (1.2-2.2); Alkaline Phosphatase 58 U/L (46-116); Anion Gap 10 (7-16); Aspartate Amino Transferase 30 U/L (0-34); BUN/Creatinine Ratio 7 Ratio (12-20); Bilirubin,Total 0.6 mg/dL (0.3-1.2); Blood Urea Nitrogen 6 mg/dL (9-23); Calcium 8.5 mg/dL (8.3-10.6); Calcium (Corrected) 9.1 mg/dL (8.5-10.1); Carbon Dioxide 24.4 mMol/L (20.0-31.0); Cardiac Risk Estimate 5.4 RATIO (4.0-6.7); Chloride 111 mMol/L (98-107); Cholesterol 108 mg/dL (132-200); Creatinine (Component) 0.9 mg/dL (0.6-1.3); Estimated Creatinine Clearance 139.9 mL/min (>60); Globulin 2.3 gm/dL (2.3-3.5); Glucose 87 mg/dL (74-106); HDL Cholesterol 20 mg/dL (40-60); LDL Cholesterol,Calculated 72 mg/dL (0-130); Magnesium 1.7 mg/dL (1.6-2.6); Osmolality,Calculated 285 (275-295); Phosphorous 2.9 mg/dL (2.4-5.1); Potassium 3.5 mMol/L (3.4-5.1); Sodium 145 mMol/L (136-145); Total Protein 5.6 gm/dL (5.7-8.2); Triglycerides 79 mg/dL (30-150); eGFR > 60 See Note
[2024-12-21 08:00] VITALS: BP 116/80; PULSE 77; RESP 16; TEMP 36.3; O2SAT 97
[2024-12-21] MEDS: HEPARIN SOD INJ 5000 UNIT/ML VIAL SC ×2 (08:40→21:14)
[2024-12-21] MEDS: POLYETHYLENE GLYCOL 17 GM PACKET PO (09:33)
[2024-12-21] MEDS: DOCUSATE SOD 100 MG CAPSULE PO (09:33)
[2024-12-21 12:00] VITALS: BP 113/79; PULSE 85; RESP 17; TEMP 36.4; O2SAT 96
[2024-12-21] MEDS: NA SU/NAHCO3/KC/PEG (Golytely) 4,000 ML BTL 4000 ML PO (12:37)
--- NOTE | 2024-12-21 15:24 | ESPR_ITS ---
<Statement entered by Uriel Cast MD - 01/04/25 15:05> I reviewed above note and agree with findings and plans. I have also personally examined the patient with medicine team and went over assessment and plan with medical team including industrial design intern and resident physician. <Statement entered by Hugh Handley MD - 12/21/24 15:56> I have reviewed the note and agree with the resident's assessment & plan with exceptions as below. I have personally reviewed labs, imaging, home meds/prior records, examined the patient, formulated and discussed management plan with the IM team. Patient examined at bedside today. Patient reports that he is feeling much better.Patient to get colonoscopy, is on clear liquid diet. EGD showed angiodysplastic ulcers that were cauterized. Acute blood loss anemia cannot be explained fully which will require patient to have colonoscopy. Hemoglobin today is 12, will initiate anemia workup. Repeat hematology and chemistry in AM. Continue with GoLytely prep. Hugh Handley, PGY-2 Internal Medicine Documentation for date of: 12/21/24 Subjective Subjective Interval history: Patient examined bedside breathing fine on RA. He is in good spirits. He is able to eat and had no problems with his sausage and eggs. He had a BM He is agreeable to the colonoscopy procedure planned by Dr. Campos today. He reports hoarseness has resolved. He denies fevers, chills, night sweats, chest pain, discomfort. Exam Vital Signs Temp Pulse Resp BP Pulse Ox O2 Del Method O2 Flow Rate 97.6 F 85 17 113/79 96 Room Air 3 12/21/24 12:12/21/24 12:12/21/24 12:12/21/24 12:12/21/24 12:12/21/24 12:12/20/24 20:05 Narrative Exam Constitutional: Awake, alert, nontoxic, no acute distress, obese, eating HEENT: NC, AT, EOMI, dry lips, narrow glottis, tongue pink and moist, no whiteness noted. Neck: Supple, no masses felt, no thryomegaly noted, no abnormal or enlarged lymph nodes felt around the clavicle. CV: RRR, no m/r/g Lungs: CTAB, no w/r/r, no respiratory distress. Abd: Soft, NT, NT, no HSM noted to palpation Extremities: No deformities, no edema or ashes. Neuro: AAOx3 Skin: Warm, dry, intact Objective Labs 12/21/24 05:10 12/21/24 05:10 Labs: Laboratory Results - last 24 hr 12/20/24 12/21/24 18:00 05:10 WBC 8.0 RBC 3.77 L Hgb 11.9 L Hct 35.4 L MCV 94 MCH 31.6 MCHC 33.6 RDW Std Deviation 47.6 H Plt Count 263 Neut % (Auto) 42 Lymph % (Auto) 45 [place] % (Auto) 8 Eos % (Auto) 4 Baso % (Auto) 1 Neut # (Auto) 3.4 Lymph # (Auto) 3.6 [place] # (Auto) 0.6 Eos # (Auto) 0.4 Baso # (Auto) 0.1 Immature Gran # (Auto) 0.01 H Absolute Nucleated RBC 0.00 Immature Gran % 0 Nucleated RBC % 0 PT 12.4 H INR 1.1 Sodium 145 Potassium 3.5 Chloride 111 H Carbon Dioxide 24.4 Anion Gap 10 BUN 6 L Creatinine 0.9 Estim Creat Clear Calc 139.9 eGFR > 60 BUN/Creatinine Ratio 7 L Glucose 87 Calculated Osmolality 285 Calcium 8.5 Corrected Calcium 9.1 Phosphorus 2.9 Magnesium 1.7 Total Bilirubin 0.6 AST 30 ALT 45 Alkaline Phosphatase 58 Total Protein 5.6 L Albumin 3.3 L D Globulin 2.3 Albumin/Globulin Ratio 1.4 Triglycerides 79 Cholesterol 108 L LDL Cholesterol, Calc 72 HDL Cholesterol 20 L Cholesterol/HDL Ratio 5.4 Ur Collection Type Clean Catch Urine Color [place] A Urine Clarity Turbid A Urine pH 6.0 Ur Specific [place] 1.036 H Urine Protein Trace Urine Glucose (UA) Negative Urine Ketones 1+ A Urine Blood Negative Urine Nitrite Negative Urine Bilirubin Negative Urine Urobilinogen (Auto) 3.0 Ur Leukocyte Esterase Negative Urine RBC 16 H Urine WBC 156 H Ur Squamous Epith Cells 2 Amorphous Crystals Present A Urine Bacteria None Urine Yeast (Budding) Present A Quality Measures Quality Measures none Assessment & Plan Assessment Current Active Medications: Generic Name Dose Route Start Last Admin Trade Name Freq PRN Reason Stop Dose Admin Acetaminophen 650 mg 12/19/24 13:20 Acetaminophen 325 Mg Tablet PO 01/18/25 13:19 Q6H PRN Fever >101.5 or pain 1-3 Albuterol/Ipratropium 3 ml 12/19/24 13:20 Albuterol/Ipratropium (Duoneb) Rt Maria Elena 3 Ml Nebu INH 01/18/25 13:19 PRN PRN asthma Atorvastatin Calcium 40 mg 12/19/24 21:00 12/20/24 21:11 Atorvastatin Calcium 20 Mg Tablet PO 01/18/25 20:59 40 mg HS ROBBIE Administration Dextrose 25 ml 12/19/24 13:28 Dextrose 50%-Water Inj 50 Ml Syringe IV 01/18/25 13:27 Q15MIN PRN BG 50-70 responsive npo pt Dextrose 50 ml 12/19/24 13:28 Dextrose 50%-Water Inj 50 Ml Syringe IV 01/18/25 13:27 Q15MIN PRN BG <50 OR BG <70 & pt unresponsive Glucagon 1 mg 12/19/24 13:28 Glucagon Inj 1 Mg Vial IM Q15MIN PRN BG <70, and no IV access Heparin Sodium (Porcine) 5,000 unit 12/19/24 21:00 12/21/24 08:40 Heparin Sod Inj 5000 Unit/Ml Vial SC 01/02/25 20:59 5,000 unit Q12HR ROBBIE Administration Sodium Chloride 1,000 mls @ 125 mls/hr 12/19/24 07:39 12/21/24 05:46 Ns IV 01/18/25 07:38 125 mls/hr .Q8H ROBBIE Administration Ondansetron HCl 4 mg 12/19/24 13:20 Ondansetron Inj 2 Mg/Ml Inj 2 Ml IVP 01/18/25 13:19 Q6H PRN NAUSEA OR VOMITING Protocol Pantoprazole Sodium 40 mg 12/21/24 21:00 Pantoprazole Inj 40 Mg Vial IVP 01/20/25 20:59 BID ROBBIE Plan 44 year old male with PMHx of adenoidectomy x2 and tonsillectomy as a child, GERD, many seasonal allergies, asthma, hypercholesterolemia, and epilepsy as a child (most recent seizure aged 9) who presents with progressive dysphagia and mouth dryness for the last two weeks. Patient now unable to tolerate liquids and presents with hypokalemia most likely secondary to nutritional deficiencies currently admitted for dysphagia work up. Hypokalemia has since resolved. Hypophosphatemia is being treated. Awaiting EGD 12/20. #Acute anemia 2/2 #Upper vs lower GI bleed HgB have acutely dropped since admission from 14.6 --> 11.9. Denies melena and hematemesis, describes stools as loose and brown. RDW:47.6. Less likely PEG due to poor oral intake as evidenced by acute change. C/f GI bleed. EGD cauterized angiodysplasia of stomach. Colonoscopy planned to r/o lower GI bleed. Plan: -Iron panel -GI rec: -GOLYTELY NPO at midnight -Colonoscopy in AM. #Dysphagia - improved after endoscopic dilation Patient has progressive inability to swallow solid to liquid foods over the course of 2 weeks. Unable to perform barium swallow in ED. Neck CT showed mild wall thickening of distal esophagus. Speech and swallow eval reported possible stricture with globus sensation as well indicating possible esophageal etiology. Patient has history of GERD therefore barrets esophagus/stricture included in the differential. Other differentials can include fungal as evidenced by white scrapeable tissue covering surface of his tongue vs autoimmune such as sicca syndrome contributing to his mouth's dryness. Improved after endoscopic dialation. Plan: -GI consulted: Plan for colonoscopy today -Monitor for signs of hypoxia -Diet clear liquid #Hypophosphatemia Most likely 2/2 nutritional deficiency. Fluids and phosphate given Plan: -Continue to monitor -Replete when P-<2.4 #Hypokalemia -Resolved Most likely 2/2 nutritional deficiency. Fluids and potassium given in ED Plan: -Continue to monitor -Replete when K+< 3.5 #Xerostemia - improved #C/f rachid 2/2 flucatisone use - resolved Dry mouth is most likely a result of poor fluid intake from dysphagia, however could be a result of sicca syndrome. Rachid most likely due to daily flucatisone use. Plan: -Autoimmunue work up -Flucanazole mouth wash once patient not a choking risk #GERD Plan: -Continue home meds when tolerating PO or consider IV formulary -Omeprazole 40mg QD #Seasonal allergies, #asthma Plan: -Continue home meds when tolerating PO or consider IV formulary -Montelukast 10mg PO QD -Ipratropium bromide intranasal BID -Flucatisone propionate #Hypercholesterolemia Cholesterol: 108 (L) Plan: -Continue home meds when tolerating PO: atorvastatin 40mg QD Health Maintenance: DVT prophylaxis: Heparin Diet: NPO Guo: None Lines: PIV Supplemental O2: RA, nasal cannula if needed CODE STATUS: Full Disposition: Admitted for dysphagia work up Patient seen and reviewed with attending Dr. Cast and supervising resident Dr. Handley. Note written by Bernardo Rosa MD PGY-1 Attending Provider Attestation/Addendum I have discussed and was present for the essential components of the history, physical examination, diagnosis, and treatment plan with the resident. I agree with the patient's care as documented by the resident and amended herein by me. Hugo Antoine DO. Although this document has been carefully reviewed, there may still be some phonetic and other typographical errors. These errors are purely grammatical due to imperfections in the software program and should not be construed in any way to compromise the substance of the patient's medical care during this visit. Patient seen and evaluated this AM. No acute events overnight, EGD pending later this afternoon for the patient's dysphagia. CT soft tissue of the patient's neck did not demonstrate any mass or other physical abnormalities in the area.
[2024-12-21 16:00] VITALS: BP 123/75; PULSE 77; RESP 18; TEMP 36.2; O2SAT 97
--- NOTE | 2024-12-21 17:54 | PD.IMPROG ---
Documentation for date of: 12/21/24 Subjective Subjective Interval history: Dysphagia has tremendously improved after endoscopic dilatation For further evaluation of his abdominal pain Shelby prep in progress for the colonoscopy a.m. Exam Vital Signs Temp Pulse Resp BP Pulse Ox O2 Del Method O2 Flow Rate 97.2 F 77 18 123/75 97 Room Air 3 12/21/24 16:00 12/21/24 16:00 12/21/24 16:00 12/21/24 16:00 12/21/24 16:00 12/21/24 12:00 12/20/24 20:05 Objective Labs 12/21/24 05:10 12/21/24 05:10 Labs: Laboratory Results - last 24 hr 12/20/24 12/21/24 18:00 05:10 WBC 8.0 RBC 3.77 L Hgb 11.9 L Hct 35.4 L MCV 94 MCH 31.6 MCHC 33.6 RDW Std Deviation 47.6 H Plt Count 263 Neut % (Auto) 42 Lymph % (Auto) 45 [place] % (Auto) 8 Eos % (Auto) 4 Baso % (Auto) 1 Neut # (Auto) 3.4 Lymph # (Auto) 3.6 [place] # (Auto) 0.6 Eos # (Auto) 0.4 Baso # (Auto) 0.1 Immature Gran # (Auto) 0.01 H Absolute Nucleated RBC 0.00 Immature Gran % 0 Nucleated RBC % 0 PT 12.4 H INR 1.1 Sodium 145 Potassium 3.5 Chloride 111 H Carbon Dioxide 24.4 Anion Gap 10 BUN 6 L Creatinine 0.9 Estim Creat Clear Calc 139.9 eGFR > 60 BUN/Creatinine Ratio 7 L Glucose 87 Calculated Osmolality 285 Calcium 8.5 Corrected Calcium 9.1 Phosphorus 2.9 Magnesium 1.7 Total Bilirubin 0.6 AST 30 ALT 45 Alkaline Phosphatase 58 Total Protein 5.6 L Albumin 3.3 L D Globulin 2.3 Albumin/Globulin Ratio 1.4 Triglycerides 79 Cholesterol 108 L LDL Cholesterol, Calc 72 HDL Cholesterol 20 L Cholesterol/HDL Ratio 5.4 Ur Collection Type Clean Catch Urine Color [place] A Urine Clarity Turbid A Urine pH 6.0 Ur Specific [place] 1.036 H Urine Protein Trace Urine Glucose (UA) Negative Urine Ketones 1+ A Urine Blood Negative Urine Nitrite Negative Urine Bilirubin Negative Urine Urobilinogen (Auto) 3.0 Ur Leukocyte Esterase Negative Urine RBC 16 H Urine WBC 156 H Ur Squamous Epith Cells 2 Amorphous Crystals Present A Urine Bacteria None Urine Yeast (Budding) Present A Impressions Impression: # Dysphagia improved after endoscopic dilatation # For further evaluation abdominal pain colonoscopy a.m. Shelby prep in progress # esophageal stricture improved after endoscopic dilatation Colonoscopy a.m. Assessment & Plan A&P Narrative # Progressive dysphagia Plan Fiberoptic esophagogastroduodenoscopy with possible biopsy possible therapeutic intervention under intravenous moderate sedation N.p.o. midnight tonight except meds Which are scheduled for tomorrow afternoon Thank you once again for the opportunity to participate in the care of this patient Time Spent With Patient Time: Total time spent is greater than 50% in coordination of care (as documented) at patient's floor/unit and/or counseling patient:
[2024-12-21 20:00] VITALS: BP 108/71; PULSE 90; RESP 20; TEMP 36.6; O2SAT 92
[2024-12-21] MEDS: ATORVASTATIN CALCIUM 20 MG TABLET 40 MG PO (21:15)
[2024-12-22] VITALS (15 sets, daily range): BP systolic 111–139; BP diastolic 66–83; PULSE 62–100; RESP 16–20; TEMP 36.1–36.7; O2SAT 94–100
[2024-12-22 05:52] LABS: Basophils # (Auto) 0.1 Thou/mm3 (0.0-0.2); Basophils % (Auto) 1 % (0-2.5); Eosinophils # (Auto) 0.3 Thou/mm3 (0.0-0.5); Eosinophils % (Auto) 4 % (0-10); Hematocrit 38.1 % (41.0-53.0); Hemoglobin 12.5 g/dL (13.5-16.0); Immature Granulocytes Auto 0.01 Thou/mm3 (0.00-0.00); Immature Reticulocyte Fraction 13.1 % (2.3-13.4); Lymphocytes # (Auto) 4.0 Thou/mm3 (1.0-4.8); Lymphocytes % (Auto) 47 % (10-50); Mean Corpuscular HGB Conc 32.8 g/dl (31.0-37.0); Mean Corpuscular Hemoglobin 31.1 pg (25.0-35.0); Mean Corpuscular Volume 95 fL (80-100); Monocytes # (Auto) 0.5 Thou/mm3 (0.0-0.8); Monocytes % (Auto) 6 % (0-12); Neutrophils # (Auto) 3.6 Thou/mm3 (1.8-7.7); Neutrophils % (Auto) 42 % (37-80); Nucleated Red Blood Cell # 0.00 Thou/mm3 (0.00-0.00); Nucleated Red Blood Cell % 0 /100 WBC (0); Platelet Count 240 Thou/mm3 (140-440); RDW Standard Deviation 47.8 fL (35.1-43.9); Red Blood Count 4.02 Miln/mm3 (4.50-5.90); Reticulocyte % (Auto) 1.3 % (0.5-1.5); Reticulocyte Absolute Auto 51.9 Biln/L (25.0-75.0); Reticulocyte Hgb Content 37.2 pg (28.0-35.0); White Blood Count 8.5 Thou/mm3 (3.8-10.6)
[2024-12-22 06:04] LABS: INR 1.1 (0.9-1.3); Prothrombin Time 12.1 Seconds (9.0-12.2)
[2024-12-22 06:16] LABS: Path Review Blood Smear Sent to Pathologist
[2024-12-22 06:20] LABS: Alanine Aminotransferase 50 U/L (10-49); Albumin, Serum 3.5 gm/dL (3.5-5.0); Albumin/Globulin Ratio 1.5 (1.2-2.2); Alkaline Phosphatase 62 U/L (46-116); Anion Gap 14 (7-16); Aspartate Amino Transferase 36 U/L (0-34); BUN/Creatinine Ratio 6 Ratio (12-20); Bilirubin,Total 0.6 mg/dL (0.3-1.2); Blood Urea Nitrogen < 5 mg/dL (9-23); Calcium 8.6 mg/dL (8.3-10.6); Calcium (Corrected) 9.0 mg/dL (8.5-10.1); Carbon Dioxide 20.8 mMol/L (20.0-31.0); Chloride 109 mMol/L (98-107); Creatinine (Component) 0.8 mg/dL (0.6-1.3); Estimated Creatinine Clearance 157.4 mL/min (>60); Globulin 2.3 gm/dL (2.3-3.5); Glucose 87 mg/dL (74-106); Magnesium 1.1 mg/dL (1.6-2.6); Osmolality,Calculated 283 (275-295); Phosphorous 2.0 mg/dL (2.4-5.1); Potassium 3.2 mMol/L (3.4-5.1); Sodium 144 mMol/L (136-145); Total Protein 5.8 gm/dL (5.7-8.2); eGFR > 60 See Note
[2024-12-22 06:28] LABS: Ferritin 199 ng/mL (10.5-307.3); Iron 97 mcg/dL (65-175); Percent Iron Saturation 48 % (20-55); Total Iron Binding Capacity 201 mcg/dL (250-425); Unsaturated Iron Binding 104 (225-295)
[2024-12-22] MEDS: POT PHOS 15 mMol in NS 250 ML 15 MMOL/250 ML BAG 62.5 MMOL IV (09:43)
[2024-12-22] MEDS: NAPH,KPH MBDB 1 PACKET (1.5 GM) 2 PACKET PO (09:43)
[2024-12-22] MEDS: HEPARIN SOD INJ 5000 UNIT/ML VIAL SC ×2 (09:44→20:20)
[2024-12-22] MEDS: Magnesium Sulfate 4 GM Ivpb 4 GM/50 ML BAG IV (09:45)
--- NOTE | 2024-12-22 14:55 | PD.RESPRO ---
Documentation for date of: 12/22/24 Subjective Subjective Interval history: Patient examined bedside breathing fine on RA. He is in good spirits. He is able to eat and had no problems with his meal today of fluids. He had a BM He is agreeable to the colonoscopy procedure planned by Dr. Campos today. He reports hoarseness has resolved. He denies fevers, chills, night sweats, chest pain, discomfort. Exam Vital Signs Temp Pulse Resp BP Pulse Ox O2 Del Method O2 Flow Rate 97.1 F 62 18 124/81 94 L Room Air 3 12/22/24 12:00 12/22/24 12:00 12/22/24 12:00 12/22/24 12:12/22/24 12:12/22/24 12:12/20/24 20:05 Narrative Exam Constitutional: Awake, alert, nontoxic, no acute distress, obese, eating HEENT: NC, AT, EOMI, dry lips, narrow glottis, tongue pink and moist, no whiteness noted. Neck: Supple, no masses felt, no thryomegaly noted, no abnormal or enlarged lymph nodes felt around the clavicle. CV: RRR, no m/r/g Lungs: CTAB, no w/r/r, no respiratory distress. Abd: Soft, NT, NT, no HSM noted to palpation Extremities: No deformities, no edema or ashes. Neuro: AAOx3 Skin: Warm, dry, intact Objective Labs 12/23/24 05:00 12/23/24 05:00 Labs: Laboratory Results - last 24 hr 12/22/24 04:48 WBC 8.5 RBC 4.02 L Hgb 12.5 L Hct 38.1 L MCV 95 MCH 31.1 MCHC 32.8 RDW Std Deviation 47.8 H Plt Count 240 Neut % (Auto) 42 Lymph % (Auto) 47 [place] % (Auto) 6 Eos % (Auto) 4 Baso % (Auto) 1 Neut # (Auto) 3.6 Lymph # (Auto) 4.0 [place] # (Auto) 0.5 Eos # (Auto) 0.3 Baso # (Auto) 0.1 Immature Gran # (Auto) 0.01 H Absolute Nucleated RBC 0.00 Immature Gran % 0 Nucleated RBC % 0 Smear Path Review Sent to Pathologist Retic Count (auto) 1.3 Absolute Retic 51.9 Immature Retic Fraction 13.1 Retic Hgb Content CHr 37.2 H PT 12.1 INR 1.1 Sodium 144 Potassium 3.2 L Chloride 109 H Carbon Dioxide 20.8 Anion Gap 14 BUN < 5 L Creatinine 0.8 Estim Creat Clear Calc 157.4 eGFR > 60 BUN/Creatinine Ratio 6 L Glucose 87 Calculated Osmolality 283 Calcium 8.6 Corrected Calcium 9.0 Phosphorus 2.0 L Magnesium 1.1 L Iron 97 TIBC 201 L Iron Saturation 48 Unsat Iron Binding 104 L Ferritin 199 Total Bilirubin 0.6 AST 36 H ALT 50 H Alkaline Phosphatase 62 Total Protein 5.8 Albumin 3.5 Globulin 2.3 Albumin/Globulin Ratio 1.5 Quality Measures Quality Measures none Assessment & Plan Assessment Current Active Medications: Generic Name Dose Route Start Last Admin Trade Name Freq PRN Reason Stop Dose Admin Acetaminophen 650 mg 12/19/24 13:20 Acetaminophen 325 Mg Tablet PO 01/18/25 13:19 Q6H PRN Fever >101.5 or pain 1-3 Albuterol/Ipratropium 3 ml 12/19/24 13:20 Albuterol/Ipratropium (Duoneb) Rt Maria Elena 3 Ml Nebu INH 01/18/25 13:19 PRN PRN asthma Atorvastatin Calcium 40 mg 12/19/24 21:00 12/21/24 21:15 Atorvastatin Calcium 20 Mg Tablet PO 01/18/25 20:59 40 mg HS ROBBIE Administration Dextrose 25 ml 12/19/24 13:28 Dextrose 50%-Water Inj 50 Ml Syringe IV 01/18/25 13:27 Q15MIN PRN BG 50-70 responsive npo pt Dextrose 50 ml 12/19/24 13:28 Dextrose 50%-Water Inj 50 Ml Syringe IV 01/18/25 13:27 Q15MIN PRN BG <50 OR BG <70 & pt unresponsive Glucagon 1 mg 12/19/24 13:28 Glucagon Inj 1 Mg Vial IM Q15MIN PRN BG <70, and no IV access Heparin Sodium (Porcine) 5,000 unit 12/19/24 21:00 12/22/24 09:44 Heparin Sod Inj 5000 Unit/Ml Vial SC 01/02/25 20:59 5,000 unit Q12HR ROBBIE Administration Ondansetron HCl 4 mg 12/19/24 13:20 Ondansetron Inj 2 Mg/Ml Inj 2 Ml IVP 01/18/25 13:19 Q6H PRN NAUSEA OR VOMITING Protocol Pantoprazole Sodium 40 mg 12/21/24 21:00 12/22/24 09:44 Pantoprazole Inj 40 Mg Vial IVP 01/20/25 20:59 40 mg BID ROBBIE Administration Plan 44 year old male with PMHx of adenoidectomy x2 and tonsillectomy as a child, GERD, many seasonal allergies, asthma, hypercholesterolemia, and epilepsy as a child (most recent seizure aged 9) who presents with progressive dysphagia and mouth dryness for the last two weeks. Patient now unable to tolerate liquids and presents with hypokalemia most likely secondary to nutritional deficiencies currently admitted for dysphagia work up. Hypokalemia has since resolved. Hypophosphatemia is being treated. Awaiting EGD 12/20. #Acute anemia 2/2 #Upper vs lower GI bleed r/o #most likely PEG Ferritin normal. HgB have acutely dropped since admission from 14.6 --> 11.9. Denies melena and hematemesis, describes stools as loose and brown. RDW:47.6. Most likely PEG due to poor oral intake. C/f GI bleed r/o and post cauterization angiodysplasia of stomach. Colonoscopy: perianal hemorrhoids, entire colon is normal, no specimens collected. Less likely to be due to hemorrhoids as evidenced by no blood in the stool Plan: - Restart diet after colonoscopy as tolerated -FUP GI recs #Dysphagia - improved after endoscopic dilation Patient has progressive inability to swallow solid to liquid foods over the course of 2 weeks. Unable to perform barium swallow in ED. Neck CT showed mild wall thickening of distal esophagus. Speech and swallow eval reported possible stricture with globus sensation as well indicating possible esophageal etiology. Patient has history of GERD therefore barrets esophagus/stricture included in the differential. Other differentials can include fungal as evidenced by white scrapeable tissue covering surface of his tongue vs autoimmune such as sicca syndrome contributing to his mouth's dryness. Improved after endoscopic dialation. Plan: -GI consulted: Plan for colonoscopy today -Monitor for signs of hypoxia -Diet clear liquid #Hypophosphatemia Most likely 2/2 nutritional deficiency. Fluids and phosphate given Plan: -Continue to monitor -Replete when P-<2.4 #Hypokalemia -Resolved Most likely 2/2 nutritional deficiency. Fluids and potassium given in ED Plan: -Continue to monitor -Replete when K+< 3.5 #Xerostemia - improved #C/f rachid 2/2 flucatisone use - resolved Dry mouth is most likely a result of poor fluid intake from dysphagia, however could be a result of sicca syndrome. Rachid most likely due to daily flucatisone use. Plan: -Autoimmunue work up -Flucanazole mouth wash once patient not a choking risk #GERD Plan: -Continue home meds when tolerating PO or consider IV formulary -Omeprazole 40mg QD #Seasonal allergies, #asthma Plan: -Continue home meds when tolerating PO or consider IV formulary -Montelukast 10mg PO QD -Ipratropium bromide intranasal BID -Flucatisone propionate #Hypercholesterolemia Cholesterol: 108 (L) Plan: -Continue home meds when tolerating PO: atorvastatin 40mg QD Health Maintenance: DVT prophylaxis: Heparin Diet: NPO Guo: None Lines: PIV Supplemental O2: RA, nasal cannula if needed CODE STATUS: Full Disposition: Admitted for dysphagia work up Patient seen and reviewed with attending Dr. Araujo and supervising resident Dr. Handley. Note written by Bernardo Rosa MD PGY-1 Attending Provider Attestation/Addendum I have examined the patient, reviewed labs and imaging findings, discussed the case with the resident(s), and reviewed entered orders. I agree with the plan of care as outlined in this note, with these additional summaries/recommendations: 44-year-old male presenting with dysphagia status post EGD with esophageal dilation reports improvement in symptoms. Patient had worsening anemia with unclear etiology and we will proceed with colonoscopy this evening. If normal, anticipate discharge in next 1 to 2 days. Marlon Araujo MD
--- NOTE | 2024-12-22 16:40 | SUR.PHASEI ---
received report from BHARGAV Rivera, Pt awake, A&ox4, pt denies any pain. encouraged pt to pass gas, pt denies feeling bloated. vss. iv in place.
--- NOTE | 2024-12-22 17:01 | SUR.PHASEI ---
pt continues to recover well, vss, pt denies any pain. report given to BHARGAV Cardona
[2024-12-22] MEDS: ATORVASTATIN CALCIUM 20 MG TABLET 40 MG PO (20:17)
[2024-12-23] VITALS: BP 112/76; PULSE 74; RESP 17; TEMP 36.2; O2SAT 96
[2024-12-23 04:00] VITALS: BP 116/83; PULSE 80; RESP 18; TEMP 36.4; O2SAT 95
[2024-12-23 06:23] LABS: Basophils # (Auto) 0.1 Thou/mm3 (0.0-0.2); Basophils % (Auto) 1 % (0-2.5); Eosinophils # (Auto) 0.3 Thou/mm3 (0.0-0.5); Eosinophils % (Auto) 4 % (0-10); Hematocrit 38.8 % (41.0-53.0); Hemoglobin 12.6 g/dL (13.5-16.0); Immature Granulocytes Auto 0.01 Thou/mm3 (0.00-0.00); Lymphocytes # (Auto) 4.0 Thou/mm3 (1.0-4.8); Lymphocytes % (Auto) 52 % (10-50); Mean Corpuscular HGB Conc 32.5 g/dl (31.0-37.0); Mean Corpuscular Hemoglobin 30.7 pg (25.0-35.0); Mean Corpuscular Volume 94 fL (80-100); Monocytes # (Auto) 0.5 Thou/mm3 (0.0-0.8); Monocytes % (Auto) 6 % (0-12); Neutrophils # (Auto) 2.9 Thou/mm3 (1.8-7.7); Neutrophils % (Auto) 38 % (37-80); Nucleated Red Blood Cell # 0.00 Thou/mm3 (0.00-0.00); Nucleated Red Blood Cell % 0 /100 WBC (0); Platelet Count 273 Thou/mm3 (140-440); RDW Standard Deviation 47.9 fL (35.1-43.9); Red Blood Count 4.11 Miln/mm3 (4.50-5.90); White Blood Count 7.7 Thou/mm3 (3.8-10.6)
[2024-12-23 07:03] LABS: Alanine Aminotransferase 75 U/L (10-49); Albumin, Serum 3.3 gm/dL (3.5-5.0); Albumin/Globulin Ratio 1.7 (1.2-2.2); Alkaline Phosphatase 61 U/L (46-116); Anion Gap 14 (7-16); Aspartate Amino Transferase 69 U/L (0-34); BUN/Creatinine Ratio 6 Ratio (12-20); Bilirubin,Total 0.4 mg/dL (0.3-1.2); Blood Urea Nitrogen < 5 mg/dL (9-23); Calcium 8.8 mg/dL (8.3-10.6); Calcium (Corrected) 9.4 mg/dL (8.5-10.1); Carbon Dioxide 22.8 mMol/L (20.0-31.0); Chloride 107 mMol/L (98-107); Creatinine (Component) 0.8 mg/dL (0.6-1.3); Estimated Creatinine Clearance 157.4 mL/min (>60); Globulin 2.0 gm/dL (2.3-3.5); Glucose 88 mg/dL (74-106); Magnesium 1.6 mg/dL (1.6-2.6); Osmolality,Calculated 283 (275-295); Phosphorous 3.4 mg/dL (2.4-5.1); Potassium 4.0 mMol/L (3.4-5.1); Sodium 144 mMol/L (136-145); Total Protein 5.3 gm/dL (5.7-8.2); eGFR > 60 See Note
[2024-12-23 08:00] VITALS: BP 129/87; PULSE 68; RESP 16; TEMP 36.2; O2SAT 95
[2024-12-23] MEDS: HEPARIN SOD INJ 5000 UNIT/ML VIAL SC (08:11)
[2024-12-23 08:22] VITALS: PULSE 81; RESP 18; O2SAT 99
[2024-12-23 11:55] VITALS: BP 133/86; PULSE 70; RESP 18; TEMP 36.2; O2SAT 95
--- NOTE | 2024-12-23 13:14 | ESDS_ITS ---
<Statement entered by Marlon Araujo MD - 12/23/24 17:13> Patient seen and examined at bedside at bedside with resident. Agree with assessment and plan as dictated below. Patient cleared for discharge to home and advised to followup with primary care provider within 1-2 weeks. Marlon Araujo MD Planned Discharge Date 12/23/24 DS: Providers Provider Date of admission: 12/19/24 12:00 Primary care physician: Abdiel Esparza MD Admitting Provider: Ronak Antoine DO Attending Provider on Admission: Ronak Antoine DO Consults: 12/19/24 16:02 Consult to Gastroenterology Stat Comment: dysphagia Consulting Provider: Joshua Campos 12/19/24 16:12 Referral Speech Therapy Routine Comment: Attending Provider on DC: Marlon Araujo MD Discharging Provider: Marlon Araujo MD DS: Diagnosis Problem List Completed Was Problem List Reviewed/Reconciled?: Yes Hospital Course Hospital Course Hospital course: Logan is a 44 year old male with PMHx of adenoidectomy x2 and tonsillectomy as a child, GERD, many seasonal allergies, asthma, hypercholesterolemia, and epilepsy as a child (most recent seizure aged 9) who was admitted for dysphagia and acute anemia. Patient presented with hypokalemia 2.8 and dry mouth. Was unable to complete esophagram as unable to swallow sufficient barium. IV NS, LR and K+ was administered in ED. Patient sent for CT neck. Speech therapist has evaluated the patient and reports there may be a possible stricture. Medicine was consulted and patient was admitted to the floors. While on the floors, GI, Dr. Campos, was consulted who recommended EGD. Patient had EGD which showed angiodysplastic ulcers and esophageal stenosis which was dilated. Biopsies were also taken in which patient needs to follow-up outpatient on. Patient was then advanced to dysphagia and eventually regular diet as esophageal stenosis improved with dilatation. Patient was then prepped for colonoscopy for further evaluation of acute anemia. Colonoscopy was done which showed hemorrhoids. Etiology of patient's acute anemia likely related to angiodysplastic ulcers in which she was recommended to take Protonix and to avoid NSAIDs. Esophageal stenosis could have been related to longstanding GERD. Patient was then discharged with the following recommendations listed below. Discharge instructions Follow-up with your PCP within 1 week Follow-up with pathology results from endoscopy Follow up with your GI doctor, Dr. Campos within one to two weeks. You may need your PCP to refer you I am prescribing you a medicine called Protonix, this is to prevent stomach ulcers as you were found to have some with your EGD AVOID ALL NSAIDs including Ibuprofen, Advil, Aleeve, Motrin, Naproxen and Brown xicam Take your medicines as prescribed Return to ED if your symptoms worsen or return Problem List: #Acute anemia 2/2 #Angiodysplastic ulcers #Esophageal stenosis #Dysphagia #Hypophosphatemia #Hypokalemia -Resolved #Xerostemia - improved #C/f rachid 2/2 flucatisone use - resolved #GERD #Seasonal allergies, #asthma #Hypercholesterolemia Discharge summary was reviewed with my attending Dr. Van Handley, PGY-2 Time Spent with Patient Time attestation: Total time spent providing and/or coordinating discharge services: Time spent: Greater than 30 minutes Exam Vital Signs Temp Pulse Resp BP Pulse Ox O2 Del Method O2 Flow Rate 97.2 F 70 18 133/86 H 95 Room Air 3 12/23/24 11:55 12/23/24 11:55 12/23/24 11:55 12/23/24 11:55 12/23/24 11:55 12/23/24 11:55 12/22/24 16:35 Narrative Exam Constitutional: Awake, alert, nontoxic, no acute distress, obese, eating HEENT: NC, AT, EOMI, dry lips, narrow glottis, tongue pink and moist, no whiteness noted. Neck: Supple, no masses felt, no thryomegaly noted, no abnormal or enlarged lymph nodes felt around the clavicle. CV: RRR, no m/r/g Lungs: CTAB, no w/r/r, no respiratory distress. Abd: Soft, NT, NT, no HSM noted to palpation Extremities: No deformities, no edema or ashes. Neuro: AAOx3 Skin: Warm, dry, intact Discharge Plan Plan Patient Disposition: HOME (Self Care) Patient condition on transfer: Stable Care Plan Goals: Discharge instructions Follow-up with your PCP within 1 week Follow up with your GI doctor, Dr. Campos within one to two weeks. You may need your PCP to refer you I am prescribing you a medicine called Protonix, this is to prevent stomach ulcers as you were found to have some with your EGD AVOID ALL NSAIDs including Ibuprofen, Advil, Aleeve, Motrin, Naproxen and Meloxicam Take your medicines as prescribed Return to ED if your symptoms worsen or return Prescriptions/Referrals Prescriptions/Med Rec: New pantoprazole [Protonix] 40 mg tablet,delayed release (DR/EC) 40 mg PO QDAY 30 Days Qty: 30 0RF Rx Instructions: Take one tablet by mouth before breakfast Continued fluticasone propionate 50 mcg/actuation spray,suspension 2 spray INTRANASAL DAILY ipratropium bromide 42 mcg (0.06 %) spray,non-aerosol 2 spray INTRANASAL BID montelukast 10 mg tablet 10 mg PO DAILY atorvastatin 20 mg tablet 40 mg PO DAILY omeprazole 40 mg capsule,delayed release(DR/EC) 40 mg PO DAILY Referrals: Abdiel Esparza MD [Primary Care Provider] - Joshua Campos MD [Physician] - Patient/Caregiver Discharge Instructions Discharge Activity: activity as tolerated Education Materials: Colonoscopy, Upper GI Endoscopy, ED Hemorrhoids, ED PEPTIC ULCER vs GASTRITIS, ED Dysphagia (Adult) Print Language: Beninese Stand Alone Forms: Judy Award Info., Patient Portal Info Letter Discharge Order Discharge Orders: Discharge (Routine); Ordered 12/23/24 Ordered By: Hugh Handley Quality Discharge Quality Measures VTE prophylaxis (Lovenox)
--- NOTE | 2024-12-23 20:33 | PD.IMPROG ---
Documentation for date of: 12/23/24 Subjective Subjective Interval history: Late entry for the note Case discussed with internal medicine team Okay to discharge patient home as a hemoglobin hematocrit stable at 12.6 and 38.8 Dysphagia improved Abdominal pain resolved Exam Vital Signs Temp Pulse Resp BP Pulse Ox O2 Del Method O2 Flow Rate 97.2 F 70 18 133/86 H 95 Room Air 3 12/23/24 11:55 12/23/24 11:55 12/23/24 11:55 12/23/24 11:55 12/23/24 11:55 12/23/24 11:55 12/22/24 16:35 Objective Labs 12/23/24 05:00 12/23/24 05:00 Labs: Laboratory Results - last 24 hr 12/23/24 05:00 WBC 7.7 RBC 4.11 L Hgb 12.6 L Hct 38.8 L MCV 94 MCH 30.7 MCHC 32.5 RDW Std Deviation 47.9 H Plt Count 273 D Neut % (Auto) 38 Lymph % (Auto) 52 H [place] % (Auto) 6 Eos % (Auto) 4 Baso % (Auto) 1 Neut # (Auto) 2.9 Lymph # (Auto) 4.0 [place] # (Auto) 0.5 Eos # (Auto) 0.3 Baso # (Auto) 0.1 Immature Gran # (Auto) 0.01 H Absolute Nucleated RBC 0.00 Immature Gran % 0 Nucleated RBC % 0 Sodium 144 Potassium 4.0 D Chloride 107 Carbon Dioxide 22.8 Anion Gap 14 BUN < 5 L Creatinine 0.8 Estim Creat Clear Calc 157.4 eGFR > 60 BUN/Creatinine Ratio 6 L Glucose 88 Calculated Osmolality 283 Calcium 8.8 Corrected Calcium 9.4 Phosphorus 3.4 Magnesium 1.6 Total Bilirubin 0.4 AST 69 H ALT 75 H Alkaline Phosphatase 61 Total Protein 5.3 L Albumin 3.3 L Globulin 2.0 L Albumin/Globulin Ratio 1.7 Impressions Impression: Internal hemorrhoids 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 midnight tonight except meds Which are scheduled for tomorrow afternoon Thank you once again for the opportunity to participate in the care of this patient Time Spent With Patient Time: Total time spent is greater than 50% in coordination of care (as documented) at patient's floor/unit and/or counseling patient:
== END 2024-12-23 12:00 | disposition home or self-care (01) | DRG 243 ==
LOC: SERX 11:23 → SERHOLD 12:40 → S3SX 16:41
PROVIDERS: Physician Assistant; Specialist; Admitting Provider Student in an Organized Health Care Education/Training Program; Emergency Provider Family Medicine; PCP Family Medicine; Visit Provider Student in an Organized Health Care Education/Training Program
PROC: 0DJD8ZZ Inspection of Lower Intestinal Tract, Via Natural or Artificial Opening Endoscopic (ICD-10-PCS; CPT 43239; principal; 2024-12-20 19:30)
DX: K22.2 Esophageal obstruction (principal); K31.819 Angiodysplasia of stomach and duodenum without bleeding; R13.12 Dysphagia, oropharyngeal phase; E87.6 Hypokalemia; D62 Acute posthemorrhagic anemia; E63.9 Nutritional deficiency, unspecified; E78.00 Pure hypercholesterolemia, unspecified; E83.39 Other disorders of phosphorus metabolism; G40.909 Epilepsy, unspecified, not intractable, without status epilepticus; J45.909 Unspecified asthma, uncomplicated; K21.9 Gastro-esophageal reflux disease without esophagitis; K64.8 Other hemorrhoids; Z63.4 Disappearance and death of family member; M35.00 Sjogren syndrome, unspecified; F80.0 Phonological disorder
CPT/HCPCS: 36415; 70491; 71260; 74220; 80053; 80061; 81001; 82728; 83540; 83550; 83690; 83735; 84100; 84443; 85025; 85046; 85610; 85730; 92526; 93005; 96361; 96365; 96366; 96375; 99284; A4649; C1769; J1200; J1644; J2250; J2470; J3010; J3475; J3480; J7030; J7120; J7999; Q9967; A9270

== ENCOUNTER 2025-01-10 17:55 | Emergency (ER) | payer MEDICAID, SELFPAY ==
[2025-01-10 17:56] VITALS: BMI 31.3
[2025-01-10 18:37] VITALS: BP 100/77; PULSE 135; RESP 20; TEMP 36.3; O2SAT 97
--- NOTE | 2025-01-10 18:44 | EKG_ITS ---
[facility] Test Date: 2025-01-10 Pat Name: MAURISIO MIRELES Department: Room: - Gender: Male Legal Specialist: : [id number] Requested By: Jefferson Chiang Order Number: [id number] Reading MD: Jefferson Chiang Measurements Intervals [place] Rate: 133 P: 44 VA: 131 QRS: 23 QRSD: 80 T: 50 QT: 305 QTc: 455 Interpretive Statements SINUS TACHYCARDIA MODERATE ST DEPRESSION [0.05+ mV ST DEPRESSION] Compared to ECG 12/19/2024 14:28:54 ST (T wave) deviation now present Sinus rhythm no longer present /store/S0/[id number].pdf
--- NOTE | 2025-01-10 19:05 | XR_ITS ---
Examination: PA chest single view Technique: Upright PA chest single view. They and time: January 10, 2025, 1915 hrs. Indications: Vomiting weakness beginning 4 days ago. Findings: Normal heart size. Lungs are clear. Mild osteopenia. Impression: No active disease.
--- NOTE | 2025-01-10 19:06 | PD.EDNV ---
Nausea/Vomit./Diarrhea-RME/HPI General Chief complaint: Nausea/Vomiting/Diarrhea Stated complaint: VOMITING X 3 DAYS Time Seen by Provider: 01/10/25 19:05 Arrival date/time: 01/10/25 17:55 44M with childhood epilepsy and recent diagnosis of GI ulcers presents to ED with 3 days of N/V. No other symptoms including no chest/ab pain and SOB, but cannot keep anything down. Limitations: no limitations Related Data Home Medications ?Medication ?Instructions ?Recorded ?Confirmed atorvastatin 20 mg tablet 40 mg PO DAILY 12/19/24 12/19/24 fluticasone propionate 50 2 spray intranasal DAILY 12/19/24 12/19/24 mcg/actuation nasal spray,suspension ipratropium bromide 42 mcg (0.06 2 spray intranasal BID 12/19/24 12/19/24 %) nasal spray montelukast 10 mg tablet 10 mg PO DAILY 12/19/24 12/19/24 omeprazole 40 mg capsule,delayed 40 mg PO DAILY 12/19/24 12/19/24 release Previous Rx's ?Medication ?Instructions ?Recorded pantoprazole 40 mg tablet,delayed 40 mg PO QDAY 1 month #30 tabs 12/23/24 release (Protonix) cephalexin 750 mg capsule 750 mg PO TID 10 days #30 caps 01/11/25 ondansetron 4 mg disintegrating 4 mg PO Q8H PRN nausea and 01/11/25 tablet vomiting #14 tabs Allergies Allergy/AdvReac Type Severity Reaction Status Date / Time No Known Allergies Allergy Verified 01/10/25 17:58 Review of Systems Review of Systems Systems Reviewed: All systems reviewed, normal except as documented Constitutional Constitutional: Reports system reviewed and no additional complaints, except as documented, Denies fever(s) and Denies headache(s) ENT Ears, Nose, Mouth, and Throat: Denies disequilibrium and Denies headache(s) Cardiovascular Cardiovascular: Reports system reviewed and no additional complaints, except as documented, Denies chest pain and Denies dyspnea Respiratory Respiratory: Reports system reviewed and no additional complaints, except as documented, Denies cough and Denies dyspnea Gastrointestinal Gastrointestinal: Reports system reviewed and no additional complaints, except as documented, Reports as per HPI, Denies abdominal pain, Reports nausea and Reports vomiting Neurologic Neurologic: Reports system reviewed and no additional complaints, except as documented, Denies confusion, Denies disequilibrium and Denies headache(s) Psychiatric Psychiatric: Denies confusion Past Medical History Past Medical History NEUROLOGIC: Positive Seizures (30 YEARS AGO) CARDIAC: Positive Hypercholesterolemia; Negative Cardiac Disorders or Congestive Heart Failure RESPIRATORY: Positive Asthma; Negative Chronic Obstructive Pulmonary Disease (COPD) GENITOURINARY: Negative Renal Disease ENDOCRINE: Negative Diabetes Mellitus Type 1 or Diabetes Mellitus Type 2 HEMATOLOGIC: Negative Sickle Cell Disease OTHER HISTORY: Negative Blood Transfusions or Anesthesia Reactions Social History SMOKING STATUS: Never smoker ED Exam General Limitations: Present no limitations General appearance: Present alert and in no apparent distress Head Head exam: Present atraumatic Eye Eye exam: Present normal appearance, PERRL and EOMI ENT ENT exam: Present normal exam, normal oropharynx and mucous membranes moist Neck Neck exam: Present normal inspection, full ROM and trachea midline Chest Chest inspection: Present normal inspection and symmetric chest wall rise Respiratory Respiratory exam: Present normal lung sounds bilaterally Cardiovascular Cardiovascular exam: Present regular rate, normal rhythm and normal heart sounds Abdominal Exam Abdominal exam: Present soft and normal bowel sounds Extremities Exam Extremities exam: Present normal inspection and full ROM Back Exam Back exam: Present normal inspection and full ROM Neurological Exam Neurological exam: Present alert, oriented X3 and CN II-XII intact Psychiatric Psychiatric exam: Present normal affect and normal mood Skin Skin exam: Present warm, dry, intact and normal color Course Quality Measures none Orders Category Date Time Status CT Screening NOW Care 01/10/25 20:56 Completed Felt Coverer Q4H START 00 Care 01/10/25 19:06 Completed EKG (ED ONLY) *Do not use* NOW Care 01/10/25 18:44 Completed Insert IV NOW Care 01/10/25 19:[address] abdomen pelvis w con Stat Exams 01/10/25 20:56 Completed EKG (ED Only) Stat Exams 01/10/25 18:44 Draft XR chest 1V portable Stat Exams 01/10/25 19:05 Completed Alcohol, Blood Medical Stat Lab 01/10/25 19:40 Completed CBC Stat Lab 01/10/25 19:40 Completed Comprehensive Metabolic Panel Stat Lab 01/10/25 19:40 Completed Drug Screen,Urine Stat Lab 01/10/25 20:00 Completed Lipase Stat Lab 01/10/25 19:40 Completed Magnesium Stat Lab 01/10/25 19:40 Completed Renal Function Panel Stat Lab 01/10/25 23:28 Completed TSH [Thyroid Stimulating Hormone] Stat Lab 01/10/25 19:40 Completed Troponin I Stat Lab 01/10/25 19:40 Completed Urinalysis, C/S if Indicated Stat Lab 01/10/25 20:00 Completed Urine Culture Stat Lab 01/10/25 20:00 Received Ondansetron Inj [Zofran Inj] Med 01/10/25 19:06 Discontinued 4 mg IV X1 ONE Ondansetron Inj [Zofran Inj] Med 01/10/25 21:56 Discontinued 4 mg IV X1 ONE Ondansetron Odt [Zofran Odt] Med 01/10/25 19:05 Discontinued 4 mg PO X1 ONE Potassium Chloride [K-Dur] Med 01/11/25 00:42 Discontinued 40 meq PO X1 ONE Ringers Lactated 1000 ml [Lactated Ringers] 1,000 ml Med 01/10/25 20:57 Discontinued IV 999 mls/hr Ringers Lactated 1000 ml [Lactated Ringers] 1,000 ml Med 01/10/25 21:56 Discontinued IV 999 mls/hr Sodium Chloride 0.9% 1000 ml [Ns] 1,000 ml Med 01/10/25 19:06 Discontinued IV 999 mls/hr cefTRIAXone/D5w 1gm IV premix [Rocephin/D5w 1gm IV Med 01/10/25 20:58 Discontinued premix] 1 gm in 50 ml IV X1 Vital Signs Vital signs: Vital Signs Temperature 97.4 F 01/10/25 18:37 Pulse Rate 135 H 01/10/25 18:37 Respiratory Rate 20 01/10/25 18:37 Blood Pressure 100/77 01/10/25 18:37 Pulse Oximetry (%) 97 01/10/25 18:37 Oxygen Delivery Method Room Air 01/10/25 18:37 O2 at 97% on RA and WNLs Nausea/Vomiting/Diarrhea MDM Narrative MDM Narrative:: 44M with childhood epilepsy and recent diagnosis of GI ulcers presents to ED with 3 days of N/V. No other symptoms including no chest/ab pain and SOB, but cannot keep anything down. Physical exam reveals normal WOB, but fast HR. Patient is afebrile, calm, and alert. EKG is sinus tach of 133. CXR normal. Trop normal. Moderate leukocytosis with no anemia. CT reveals possible UTI, which is confirmed with UA, which also shows dehydration (4+ ketones; no glucose in urine). Initial CMP remarkable for anion gap of 20, but normal BS. After 3L IVF, repeat CMP reveals normal anion gap. HR also reduced to WNLs. PO challenge passed. Tox screen neg. Patient data External records reviewed:: [facility] previous records Clinical information provided by:: patient Social determinants that could affect healthcare access:: none Patient has the following chronic illnesses:: childhood epilepsy and recent diagnosis of GI ulcers How is presenting disease/condition affected by chronic disease/condition?: uneffected by Evaluation data The following diagnostics were reviewed and interpreted by me:: lab results, radiology exam(s) and EKG tracing(s) Lab and/or radiology exams considered but not ordered:: ordered Interpretation Summary: above Medications / Prescriptions Medications / Prescriptions considered but not ordered:: ordered Medication administrations:: Medication Administration History Discontinued Medications Sodium Chloride (Ns) 1,000 mls @ 999 mls/hr IV .Q1H1M ONE Stop: 01/10/25 20:06 Last Infusion: 01/10/25 20:55 Dose: Infused Documented By: JOSÉ ANTONIO Admin: 01/10/25 19:52 Dose: 999 mls/hr Documented By: JOSÉ ANTONIO Lactated Ringer's (Lactated Ringers) 1,000 mls @ 999 mls/hr IV .Q1H1M ONE Stop: 01/10/25 21:57 Last Infusion: 01/10/25 23:06 Dose: Infused Documented By: Admin: 01/10/25 21:41 Dose: 999 mls/hr Documented By: JOSÉ ANTONIO Ceftriaxone Sodium/Dextrose (Rocephin/D5w 1gm Iv Premix) 1 gm in 50 mls @ 100 mls/hr IV X1 ONE Stop: 01/10/25 21:27 Last Infusion: 01/10/25 21:43 Dose: Infused Documented By: JOSÉ ANTONIO Admin: 01/10/25 21:12 Dose: 100 mls/hr Documented By: JOSÉ ANTONIO Lactated Ringer's (Lactated Ringers) 1,000 mls @ 999 mls/hr IV .Q1H1M ONE Stop: 01/10/25 22:56 Last Infusion: 01/10/25 23:30 Dose: Infused Documented By: JOSÉ ANTONIO Admin: 01/10/25 22:23 Dose: 999 mls/hr Documented By: JOSÉ ANTONIO Ondansetron HCl (Ondansetron Odt 4 Mg Tabrap) 4 mg PO X1 ONE; Protocol Stop: 01/10/25 19:06 Last Admin: 01/10/25 19:55 Dose: Not Given Documented By: JOSÉ ANTONIO Non-Admin Reason: Discontinued Ondansetron HCl (Ondansetron Inj 2 Mg/Ml Inj 2 Ml) 4 mg IV X1 ONE; Protocol Stop: 01/10/25 19:07 Last Admin: 01/10/25 19:51 Dose: 4 mg Documented By: JOSÉ ANTONIO Ondansetron HCl (Ondansetron Inj 2 Mg/Ml Inj 2 Ml) 4 mg IV X1 ONE; Protocol Stop: 01/10/25 21:57 Last Admin: 01/10/25 22:11 Dose: 4 mg Documented By: JOSÉ ANTONIO Potassium Chloride (Potassium Chloride 20 Meq Tabcr) 40 meq PO X1 ONE Stop: 01/11/25 00:43 Last Admin: 01/11/25 00:57 Dose: 40 meq Documented By: JOSÉ ANTONIO above Consultations Consultation(s) initiated? (list below): No Diagnosis Nausea Differential Diagnosis: traveler's diarrhea, food poisoning, gastroenteritis, clostridium difficile infection, drug-induced nausea and vomiting, dehydration and other (UTI) Most likely diagnosis given after review of the tests above:: UTI and dehydration Admission Indicated Admission indicated?: not indicated Admission Request Was there a request for admission?: No Disposition Plan Disposition Plan: Discharge Discharge Attestation Discharge Attestation: The patient and all family members were given an opportunity to ask questions and understood the discharge instructions. Discharge instructions specifically effects, indications for sooner follow up or return to the emergency department, and the expected course of current diagnosis. Patient condition: Stable Discharge Plan Plan Patient Disposition: HOME (Self Care) Discharge Disposition comment: Stable Prescriptions/Referrals Prescriptions/Med Rec: New ondansetron 4 mg tablet,disintegrating 4 mg PO Q8H PRN (Reason: nausea and vomiting) Qty: 14 0RF cephalexin 750 mg capsule 750 mg PO TID 10 Days Qty: 30 0RF No Action fluticasone propionate 50 mcg/actuation spray,suspension 2 spray INTRANASAL DAILY ipratropium bromide 42 mcg (0.06 %) spray,non-aerosol 2 spray INTRANASAL BID montelukast 10 mg tablet 10 mg PO DAILY atorvastatin 20 mg tablet 40 mg PO DAILY omeprazole 40 mg capsule,delayed release(DR/EC) 40 mg PO DAILY pantoprazole [Protonix] 40 mg tablet,delayed release (DR/EC) 40 mg PO QDAY 30 Days Qty: 30 0RF Rx Instructions: Take one tablet by mouth before breakfast Referrals: Abdiel Esparza MD [Primary Care Provider, Family Practice] - In 1 week Problem List Clinical Impression: UTI (urinary tract infection), Dehydration Patient/Caregiver Discharge Instructions Education Materials: ED Dehydration (Adult), ED Bladder Infection, Male (Adult) Additional Instructions: Please follow-up with PCP within 24-48 hours and return immediately if symptoms worsen. Stay hydrated. Print Language: Tanzanian Stand Alone Forms: Patient Portal Info Letter PA/OWNER PROFESSIONAL ENGINEER Supervising Physician PA/OWNER PROFESSIONAL ENGINEER Supervising Physician: Dr. Silveira
[2025-01-10 19:51] LABS: Basophils # (Auto) 0.1 Thou/mm3 (0.0-0.2); Basophils % (Auto) 0 % (0-2.5); Eosinophils # (Auto) 0.0 Thou/mm3 (0.0-0.5); Eosinophils % (Auto) 0 % (0-10); Hematocrit 46.5 % (41.0-53.0); Hemoglobin 16.1 g/dL (13.5-16.0); Immature Granulocytes Auto 0.06 Thou/mm3 (0.00-0.00); Lymphocytes # (Auto) 2.9 Thou/mm3 (1.0-4.8); Lymphocytes % (Auto) 18 % (10-50); Mean Corpuscular HGB Conc 34.6 g/dl (31.0-37.0); Mean Corpuscular Hemoglobin 31.0 pg (25.0-35.0); Mean Corpuscular Volume 90 fL (80-100); Monocytes # (Auto) 1.0 Thou/mm3 (0.0-0.8); Monocytes % (Auto) 6 % (0-12); Neutrophils # (Auto) 11.9 Thou/mm3 (1.8-7.7); Neutrophils % (Auto) 75 % (37-80); Nucleated Red Blood Cell # 0.00 Thou/mm3 (0.00-0.00); Nucleated Red Blood Cell % 0 /100 WBC (0); Platelet Count 401 Thou/mm3 (140-440); RDW Standard Deviation 46.4 fL (35.1-43.9); Red Blood Count 5.19 Miln/mm3 (4.50-5.90); White Blood Count 15.9 Thou/mm3 (3.8-10.6)
[2025-01-10] MEDS: ONDANSETRON INJ 2 MG/ML INJ 2 ML 4 MG IV ×2 (19:51→22:11)
[2025-01-10] MEDS: SODIUM CHLORIDE 0.9% 1000 ML 1,000 ML 999 ML IV (19:52)
[2025-01-10 20:10] LABS: Collection Type, Urine Clean Catch
[2025-01-10 20:18] LABS: Alanine Aminotransferase 116 U/L (10-49); Albumin, Serum 4.7 gm/dL (3.5-5.0); Albumin/Globulin Ratio 1.3 (1.2-2.2); Alcohol, Blood Medical < 3.0 mg/dL (0-10.0); Alkaline Phosphatase 81 U/L (46-116); Anion Gap 20 (7-16); Aspartate Amino Transferase 63 U/L (0-34); BUN/Creatinine Ratio 9 Ratio (12-20); Bilirubin,Total 0.9 mg/dL (0.3-1.2); Blood Urea Nitrogen 11 mg/dL (9-23); Calcium 10.4 mg/dL (8.3-10.6); Calcium (Corrected) 10.4 mg/dL (8.5-10.1); Carbon Dioxide 21.3 mMol/L (20.0-31.0); Chloride 101 mMol/L (98-107); Creatinine (Component) 1.2 mg/dL (0.6-1.3); Estimated Creatinine Clearance 83.5 mL/min (>60); Globulin 3.5 gm/dL (2.3-3.5); Glucose 116 mg/dL (74-106); Magnesium 1.6 mg/dL (1.6-2.6); Osmolality,Calculated 283 (275-295); Potassium 3.7 mMol/L (3.4-5.1); Sodium 142 mMol/L (136-145); Thyroid Stimulating Hormone 1.77 uIU/mL (0.55-4.78); Total Protein 8.2 gm/dL (5.7-8.2); Troponin I < 0.020 ng/mL (0.0-0.045); eGFR > 60 See Note
[2025-01-10 20:20] LABS: Amphetamine/Methamp Scrn,U Negative (Negative); Bacteria,Urine Rare; Barbiturate Screen,Urine Negative (Negative); Benzodiazepines Screen,Urine Negative (Negative); Benzoylecgonine Screen, Ur Negative (Negative); Bilirubin,Urine 1+ (Negative); Blood,Urine Trace (Negative); Calcium Oxalate Crystals,Urine Rare; Clarity,Urine Turbid (Clear/Hazy); Color,Urine Drk-Yellow (Lt Yel-Yel); Culture Indicated,Urine Yes; Fentanyl Screen,Urine Negative (Negative); Glucose, Urine Negative (Negative); Hyaline Casts,Urine < 1 /hpf (0-1); Ketones,Urine 4+ (Negative); Leukocyte Esterase,Urine Positive (Negative); Nitrite,Urine Negative (Negative); Opiate Screen,Urine Negative (Negative); PH,Urine 6.5 (5.0-7.0); Protein,Urine 2+ (Neg - Trace); RBC,Urine 22 /hpf (0-3); Specific Gravity,Urine 1.035 (1.001-1.035); Squamous Epithelial Cell,Urine 6 /hpf (0-5); THC Screen,Urine Negative (Negative); Urobilinogen,Urine OVER mg/dL (0.0-1.0); WBC,Urine 78 /hpf (0-5)
--- NOTE | 2025-01-10 20:56 | XR_ITS ---
Examination: CT abdomen with intravenous contrast CT pelvis with intravenous contrast 2-D coronal reconstructions 2-D sagittal reconstructions Date and time of exam:January 10, 2025, 2123 hrs. Indications: Abdominal pain nausea vomiting beginning 3 days ago. CTDI: vol (mGy) 3 1.81 DLP: (mGycm) 1446 Technique: Multiple axial sections of the abdomen and pelvis have been obtained. 64 slice high-resolution scanner used. 3 mm axial sections have been obtained, post intravenous injection 60 cc [id number] 2-D sagittal, coronal reconstructions obtained. Low dose protocols were performed. One or more of the following dose reduction techniques were used; automated exposure control, adjustment of the mA and/or KV according to patient size, use of iterative reconstruction technique. Findings: No focal liver or splenic lesions No biliary tract dilatation Contracted gallbladder No pancreatic or adrenal mass. 4 mm lower pole right renal calculus 2 mm lower pole left renal calculus Edema in both kidneys Aorta normal size Normal appendix No bowel obstruction No diverticulitis No prostatomegaly Contracted urinary bladder Mild osteopenia Impression: Bilateral nonobstructing renal calculi Suspicious for bilateral urinary tract infection Normal appendix
[2025-01-10 20:59] VITALS: BP 115/81; PULSE 106; RESP 19; TEMP 36.7; O2SAT 96
[2025-01-10] MEDS: cefTRIAXone/D5w 1gm IV premix 1 GM/50 ML BAG IV (21:12)
[2025-01-10] MEDS: RINGERS LACTATED 1000 ML 1,000 ML 999 ML IV ×2 (21:41→22:23)
[2025-01-10 23:11] LABS: Lipase 43 U/L (12-53)
[2025-01-10 23:37] VITALS: BP 115/77; PULSE 108; RESP 18; O2SAT 100
[2025-01-11 00:35] LABS: Albumin, Serum 4.0 gm/dL (3.5-5.0); Anion Gap 15 (7-16); BUN/Creatinine Ratio 10 Ratio (12-20); Blood Urea Nitrogen 10 mg/dL (9-23); Calcium 9.3 mg/dL (8.3-10.6); Calcium (Corrected) 9.3 mg/dL (8.5-10.1); Carbon Dioxide 22.8 mMol/L (20.0-31.0); Chloride 105 mMol/L (98-107); Creatinine (Component) 1.0 mg/dL (0.6-1.3); Estimated Creatinine Clearance 100.2 mL/min (>60); Glucose 95 mg/dL (74-106); Osmolality,Calculated 283 (275-295); Phosphorous 2.2 mg/dL (2.4-5.1); Potassium 3.4 mMol/L (3.4-5.1); Sodium 143 mMol/L (136-145); eGFR > 60 See Note
== END 2025-01-11 01:04 | disposition home or self-care (01) ==
PROVIDERS: Physician Assistant; Emergency Provider Emergency Medicine; PCP Family Medicine
DX: N39.0 Urinary tract infection, site not specified (principal); E86.0 Dehydration
CPT/HCPCS: 36415; 71045; 74177; 80053; 80069; 80307; 80320; 81001; 83690; 83735; 84443; 84484; 85025; 87086; 93005; 96361; 96365; 96375; 96376; 99284; A4649; J0696; J2405; J7030; J7120; Q9967; A9270; G0480

== ENCOUNTER 2025-02-02 07:34 | Inpatient (IN) | payer MEDICAID, SELFPAY ==
[2025-02-02] VITALS (16 sets, daily range): BP systolic 47–119; BP diastolic 36–97; PULSE 111–144; RESP 14–98; TEMP 36–38.3; O2SAT 95–99; BMI 45.0
--- NOTE | 2025-02-02 07:36 | EDNOTE_ITS ---
ED Weakness RME/HPI General Chief complaint: Weakness Stated complaint: WEAKNESS Time Seen by Provider: 02/02/25 07:51 Arrival date/time: 02/02/25 07:34 Limitations: no limitations RME / HPI RME / HPI Narrative: DR. 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 EMS reports heart rate of 140, tachycardia, and tachypnea with exertion. He was recently admitted 12/19/24?12/23/24 for dysphagia and hypokalemia. He has no known allergies. At 0844 hours I spoke with his mother. Per his mother, the patient has been confused since yesterday in the afternoon. She states that the patient has not been taking his medications this week, which include only atorvastatin and medication for GERD currently. Per mother, patient is currently unemployed and his last job was a year ago, and he is having trouble getting a new job. Related Data Home Medications ?Medication ?Instructions ?Recorded ?Confirmed fluticasone propionate 50 2 spray intranasal DAILY 02/03/25 mcg/actuation nasal spray,suspension ipratropium bromide 42 mcg (0.06 2 spray intranasal BI D 12/19/24 02/03/25 %) nasal spray montelukast 10 mg tablet 10 mg PO DAILY 12/19/2401/08 Previous Rx's ?Medication ?Instructions ?Recorded ondansetron 4 mg disintegrating 4 mg PO Q8H PRN nausea and 01/11/25 tablet vomiting #14 tabs atorvastatin 20 mg tablet 40 mg (2 x 20 mg) PO HS #60 tabs 02/15/25 multivitamin (Daily Multi-Vitamin 1 tab PO QDAY #30 ta bs 02/15/25 tablet) pyridoxine (vitamin B6) 100 mg 100 mg PO QDAY #30 tabs 02/15/25 tablet thiamine HCl (vitamin B1) 100 mg 100 mg PO QDAY #30 ta bs 02/15/25 tablet metoclopramide HCl 5 mg tablet 5 mg PO QDAY #30 tabs 1 (Reglan) mirtazapine 7.5 mg tablet 7.5 mg PO QDAY #30 tabs 02/06 07/31 omeprazole 40 mg capsule,delayed 40 mg PO BID #30 caps 02/18/25 release sucralfate 1 gram tablet 1 g PO TID #90 tabs 02/18/25 Allergies Allergy/AdvReac Type Severity Reaction Status Date / Time No Known Allergies Allergy Verified 02/02/25 08:14 Review of Systems Review of Systems Systems Reviewed: All systems reviewed, normal except as documented Past Medical History Past Medical History NEUROLOGIC: Positive Seizures (30 YEARS AGO) CARDIAC: Positive Hypercholesterolemia RESPIRATORY: Positive Asthma Social History SMOKING STATUS: Never smoker SUBSTANCE USE: does not use ALCOHOL: Never ED Exam Narrative Physical exam: Patient appears postictal and slow to respond on exam. General Limitations: Present no limitations General appearance: Present alert and in no apparent distress Head Head exam: Present atraumatic Eye Eye exam: Present normal appearance, PERRL and EOMI ENT ENT exam: Present normal exam, normal oropharynx and mucous membranes moist Neck Neck exam: Present normal inspection, full ROM and trachea midline Chest Chest inspection: Present normal inspection and symmetric chest wall rise Respiratory Respiratory exam: Present normal lung sounds bilaterally Cardiovascular Cardiovascular exam: Present regular rate, normal rhythm and normal heart sounds Abdominal Exam Abdominal exam: Present soft; Absent distention, tenderness or guarding Extremities Exam Extremities exam: Present normal inspection and full ROM Back Exam Back exam: Present normal inspection Neurological Exam Neurological exam: Present alert, CN II-XII intact and other (slow to respond) Psychiatric Psychiatric exam: Present depressed Skin Skin exam: Present warm, dry, intact and normal color Course Quality Measures none Orders Category Date Time Status Patient Condition Routine Admission 02/02/25 15:07 Ordered Bedside Blood Glucose Q6HR Care 02/02/25 08:44 Completed Bedside COVID-19 Antigen Test NOW Care 02/02/25 07:54 Completed Program Manager Transportation Q4H START 00 Care 02/02/25 08:44 Completed EKG (ED ONLY) *Do not use* NOW Care 02/02/25 07:59 Completed Insert IV NOW Care 02/02/25 08:44 Completed Notify provider NEEDED Care 02/02/25 15:07 Completed Strict Intake and Output Routine Care 02/02/25 08:[address] head/brain wo con Stat Exams 02/02/25 07:55 Completed EKG (ED Only) Stat Exams 02/02/25 07:59 Draft US abdomen limited Stat Exams 02/02/25 10:18 Completed Acetaminophen Stat Lab 02/02/25 08:14 Completed Ammonia Stat Lab 02/02/25 08:14 Completed Blood Culture (Lab) Stat Lab 02/02/25 08:14 Completed CBC Stat Lab 02/02/25 08:14 Completed CMP [Comprehensive Metabolic Panel] Stat Lab 02/02/25 08:14 Completed CMP [Comprehensive Metabolic Panel] Stat Lab 02/02/25 12:43 Completed Creatine Kinase Stat Lab 02/02/25 08:14 Completed Drug Screen,Urine Stat Lab 02/02/25 13:19 Completed Influenza A & B Rapid Panel Stat Lab 02/02/25 09:27 Completed Lactate (Lactic Acid) Stat Lab 02/02/25 08:14 Completed Lactic Acid, 3 HR Stat Lab 02/02/25 12:35 Completed PT [Prothrombin Time with INR] Stat Lab 02/02/25 08:14 Completed Procalcitonin Stat Lab 02/02/25 08:14 Completed Salicylate Stat Lab 02/02/25 08:14 Completed T4 (Thyroxine) Stat Lab 02/02/25 08:14 Completed Thyroid Stimulating Hormone Stat Lab 02/02/25 08:14 Completed Troponin I Stat Lab 02/02/25 08:14 Completed UA, C/S IF [Urinalysis, C/S if Indicated] Stat Lab 02/02/25 13:19 Completed Urine Culture Stat Lab 02/02/25 13:24 Completed POTASSIUM CHL 10 mEq IVPB [Kcl Ivpb] Med 02/02/25 09:05 Discontinued 10 meq in 100 ml IV Q1H Piper/Tazo Inj [Zosyn Inj] 4.5 gm Med 02/02/25 09:43 Discontinued Sodium Chloride 0.9% (Pop) [NS 0.9% mini bag] 100 ml IV X1 Potassium Chloride [K-Dur] Med 02/02/25 09:04 Discontinued 40 meq PO X1 ONE Ringers Lactated 1000 ml [Lactated Ringers] 1,000 ml Med 02/02/25 10:19 Discontinued IV 125 mls/hr Ringers Lactated 1000 ml [Lactated Ringers] 1,000 ml Med 02/02/25 08:20 Discontinued IV 999 mls/hr Ringers Lactated 1000 ml [Lactated Ringers] 1,000 ml Med 02/02/25 09:04 Discontinued IV 999 mls/hr Ringers Lactated 1000 ml [Lactated Ringers] 1,000 ml Med 02/02/25 11:55 Disc ontinued IV 999 mls/hr Vancomycin Pharmacy to Dose Med 02/02/25 09:45 Discontinued 1 each IV QDAY PRN Vancomycin/Ns 1 gm Ivpb 200 ml Med 02/02/25 09:45 Discontinued IV X1 Vancomycin/Ns 1 gm Ivpb 200 ml Med 02/02/25 22:00 Discontinued IV X1 cefTRIAXone/D5w 1gm IV premix [Rocephin/D5w 1gm IV Med 02/02/25 09:04 Discontinued premix] 1 gm in 50 ml IV X1 levETIRAcetam INJ [Keppra Inj] Med 02/02/25 07:53 Discontinued 1,000 mg IVP X1 ONE Code Status Routine Oth 02/02/25 15:07 Completed Oxygen Delivery NOW RT 02/02/25 08:44 Completed Vital Signs Vital signs: Vital Signs Temperature 96.8 F 02/02/25 08:18 Pulse Rate 142 H 02/02/25 08:18 Respiratory Rate 18 02/02/25 08:18 Blood Pressure 106/86 H 02/02/25 08:18 Pulse Oximetry (%) 98 02/02/25 08:18 Oxygen Delivery Method Room Air 02/02/25 08:18 Weakness MDM Narrative MDM Narrative:: Patient is a 44-year-old male with medical history notable for remote history of seizures, peptic ulcer disease, hyperlipidemia that seen emergency department brought in by EMS with concerns for weakness feeling lightheaded, and confusion. Vital signs and exam as listed. Concern for ACS arrhythmia electrolyte abnormality urinary tract infection, sepsis, postictal state, intracranial hemorrhage, pneumonia among others. Ordered sepsis order set, patient presented tachycardic, febrile. Blood pressure not low. Provided patient broad spectrum antibiotics as well as fluids. Attempted to perform a straight cath, no urine was in the bladder. Patient with white blood cells 24.3, no left shift. Patient hemoglobin 18.4. Also concern for dehydration and hemoconcentration. Patient potassium is 2.7, repleted oral and IV. Patient bicarb is 12.9, has an anion gap of 25 likely secondary to lactic acidosis given patient lactic acid is 10.8. Creatinine is 1.7, previously 1.0 on his most recent visit 2 weeks ago. Patient GFR is 50. Patient AST is 80, ALT 217, alk phos normal, ammonia 49. Patient without any history of alcohol use, no history of liver disease per patient's mother. Patient CK is 305. Patient received 2 L of fluid. Troponin not elevated. T4 elevated to 13.6, TSH normal, Tylenol salicylate level normal. CT head normal. EKG sinus tachycardia at 7:58 AM, nonspecific T wave changes, no critical it. Concern the patient is severely dehydrated, possibly bacteremic and may have urosepsis. Provided patient with broad-spectrum antibiotics will continue fluid resuscitation. Will consult nephrology and admit the patient. Repeat metabolic panel bicarb is now 14.4, improved from 10. Gap is improved now to 19. Creatinine is now within normal limits. GFR is greater than 60. Lactic acid down trended from 10 to 6.2. Also with improvement in his transaminitis. Right upper quadrant ultrasound with evidence of cholelithiasis, no evidence of cholecystitis. 2:30p call hospital service, no answer. Following fluids and abx, patient mentation unchanged, is breathing RA, moving all ext. 1458: Discussed test HPI, PMHx, lab, radiology results and/or management with resident working with the hospitalist. Will admit for further evaluation and management. Accepts patient for admission. Kim Castro am scribing for and in the presence of Dr. Fernando. 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 He was recently admitted 12/19/24?12/23/24 for dysphagia and hypokalemia. He has no known allergies. How is presenting disease/condition affected by chronic disease/condition?: exacerbated by Evaluation data The following diagnostics were reviewed and interpreted by me:: lab results, radiology exam(s) and EKG tracing(s) (My interpretation: EKG performed at 0758 hours, sinus tachycardia, rate 141, normal intervals, non specific T wave changes, no cardiac alert) Lab and/or radiology exams considered but not ordered:: none Interpretation Summary: See MDM narrative above. RADIOLOGY Procedure(s): CT head/brain wo con Accession Number(s): [id number] cc: Abdiel Esparza MD; Pantera Majano MD; Jeannette Fernando MD~ Examination: CT brain head without contrast. 2-D sagittal coronal reconstructions Date and time of exam:February 02, 2025, 0936 hrs. Indications: Onset altered mental status beginning one week ago CTDI: vol (mGy):52.7 DLP: (mGycm):1 the Technique: Multiple CT axial sections of the brain have been obtained, 5 mm slice thickness. Contrast has not been administered. 2-D sagittal, coronal reconstructions have been obtained Low dose protocols were performed. One or more of the following dose reduction techniques were used; automated exposure control, adjustment of the mA and/or KV according to patient size, use of iterative reconstruction technique. Findings: No significant ventricular enlargement. Intra-axial or extra-axial hemorrhage density is not seen. No mass effect or midline shift Basal cisterns are not remarkable. Fourth ventricle is midline. Cranial vault intact. Impression: Negative for acute hemorrhage, mass effect or midline shift Advise clinical correlation follow-up accordingly. Dictated By: Pantera Majano MD Procedure(s): US abdomen limited Accession Number(s): [id number] cc: Abdiel Esparza MD; Pantera Majano MD; Jeannette Fernando MD~ Examination: Abdomen sonogram, Limited Date and time of exam: February 02, 2025, 11:45 AM Indications: Abdominal pain several months Technique: Real-time mosqueda scale transabdominal sonographic images of the upper abdomen obtained. Findings: Multiple gallstones Normal gallbladder wall Normal common bile duct 0.2 cm Pancreatic head 2.3 cm Liver 14.5 cm fatty infiltration no focal liver lesions Normal hepatopedal portal venous flow Patent IVC Impression: Cholelithiasis, negative for cholecystitis Normal common bile duct Dictated By: Pantera Majano MD Medications / Prescriptions Medications or Prescriptions considered but not ordered:: none Medication administrations:: Medication Administration History Discontinued Medications Acetaminophen (Acetaminophen 325 Mg Tablet) 650 mg PO Q6H PRN PRN Reason: Fever >101.5 Stop: 03/04/25 15:11 Acetaminophen (Acetaminophen 325 Mg Tablet) 650 mg PO Q6H PRN PRN Reason: Fever >99.9 Stop: 03/04/25 15:11 Acetaminophen (Acetaminophen 325 Mg Tablet) 650 mg NG Q6H PRN PRN Reason: Fever >99.9 Stop: 03/04/25 15:11 Acetaminophen (Acetaminophen 325 Mg Tablet) 650 mg PO Q6H PRN PRN Reason: Fever >99.9 Stop: 03/04/25 15:11 Hydrocodone Bitart/Acetaminophen (Hydrocodone/Apap 5/325 Tablet) 1 tab PO Q8HR PRN PRN Reason: PAIN SCALE 4-10(Mod-Sev Stop: 02/22/25 13:28 Last Admin: 02/17/25 13:46 Dose: 1 tab Documented By: MOLLY Amlodipine Besylate (Amlodipine Besylate 5 Mg Tablet) 5 mg PO QDAY [facility] Stop: 03/12/25 15:34 Atorvastatin Calcium (Atorvastatin Calcium 20 Mg Tablet) 40 mg PO DAILY [facility] Stop: 03/13/25 08:59 Last Admin: 02/13/25 19:20 Dose: Not Given Documented By: JOSE Non-Admin Reason: Discontinued Admin: 02/12/25 08:49 Dose: Not Given Documented By: FLAKO Non-Admin Reason: NPO Admin: 02/11/25 09:52 Dose: Not Given Documented By: KF Non-Admin Reason: NPO Atorvastatin Calcium (Atorvastatin Calcium 20 Mg Tablet) 40 mg NG HS ROBBIE Stop: 03/13/25 08:59 Last Admin: 02/13/25 20:53 Dose: 40 mg Documented By: ABIEL Atorvastatin Calcium (Atorvastatin Calcium 20 Mg Tablet) 40 mg PO HS ROBIBE Stop: 03/13/25 08:59 Last Admin: 02/17/25 21:24 Dose: 40 mg Documented By: Admin: 02/16/25 20:41 Dose: 40 mg Documented By: Admin: 02/15/25 21:04 Dose: 40 mg Documented By: Admin: 02/14/25 22:09 Dose: 40 mg Documented By: GARCIA Benzocaine (Benzocaine 20% (Hurricaine) Stanton 1 Dose) 0 dose TOP X1 ONE Stop: 02/10/25 19:11 Last Admin: 02/11/25 13:25 Dose: Not Given Documented By: FELIX Non-Admin Reason: Discontinued Benzocaine (Benzocaine 20% (Hurricaine) Stanton 1 Dose) Confirm Administered Dose 1 dose TOP .STK-MED ONE Stop: 02/10/25 19:18 Bisacodyl (Bisacodyl 10 Mg Supp) 10 mg OR X1 ONE; Protocol Stop: 02/08/25 14:03 Last Admin: 02/08/25 14:09 Dose: 10 mg Documented By: HANNAH Citric Acid/Sodium Citrate (Citric Acid/Sodium Citr 15 Ml Udc (Bicitra)) 30 ml PO X1 ONE Stop: 02/07/25 21:31 Citric Acid/Sodium Citrate (Citric Acid/Sodium Citr 15 Ml Udc (Bicitra)) 30 ml PO BID ROBBIE Stop: 03/10/25 08:59 Last Admin: 02/13/25 19:20 Dose: Not Given Documented By: JOSE Non-Admin Reason: Discontinued Admin: 02/12/25 20:54 Dose: 30 ml Documented By: Admin: 02/12/25 08:49 Dose: Not Given Documented By: FLAKO Non-Admin Reason: NPO Admin: 02/11/25 20:38 Dose: Not Given Documented By: ABIEL(2) Non-Admin Reason: NPO Admin: 02/11/25 09:52 Dose: Not Given Documented By: FELIX Non-Admin Reason: NPO Admin: 02/10/25 21:00 Dose: 30 ml Documented By: Admin: 02/10/25 09:32 Dose: 30 ml Documented By: Admin: 02/09/25 20:31 Dose: 30 ml Documented By: Admin: 02/09/25 09:52 Dose: 30 ml Documented By: Admin: 02/08/25 20:20 Dose: 30 ml Documented By: Admin: 02/08/25 08:01 Dose: Not Given Documented By: HANNAH Non-Admin Reason: Per MD, pt on intermittent suctioning Citric Acid/Sodium Citrate (Citric Acid/Sodium Citr 15 Ml Udc (Bicitra)) 30 ml NG BID ROBBIE Stop: 03/10/25 08:59 Last Admin: 02/13/25 20:53 Dose: 30 ml Documented By: ABIEL Citric Acid/Sodium Citrate (Citric Acid/Sodium Citr 15 Ml Udc (Bicitra)) 30 ml PO BID ROBBIE Stop: 03/10/25 08:59 Last Admin: 02/15/25 10:31 Dose: 30 ml Documented By: Admin: 02/14/25 22:10 Dose: 30 ml Documented By: Admin: 02/14/25 08:31 Dose: 30 ml Documented By: MOLLY Ipratropium Stanton 0. (06%) 0 ea NASAL BID ROBBIE Stop: 03/19/25 10:44 Last Admin: 02/18/25 08:41 Dose: 1 spray Documented By: KENDALL Comments: x1 spray into each nostril Admin: 02/18/25 05:23 Dose: Not Given Documented By: ABIEL Non-Admin Reason: could not find med at time Admin: 02/17/25 11:25 Dose: 2 spray Documented By: MOLLY Cyanocobalamin (Cyanocobalamin Inj 1,000 Mcg/Ml Vial) 1,000 mcg IM X1 ONE Stop: 02/07/25 17:13 Last Admin: 02/07/25 17:50 Dose: 1,000 mcg Documented By: Desmopressin Acetate (Desmopressin Acet Inj 4 Mcg/Ml Vial 10ml) 2 mcg IV QDAY ROBBIE Stop: 03/10/25 14:44 Desmopressin Acetate (Desmopressin Acetate 4 Mcg/Ml Vial) 2 mcg IV QDAY ROBBIE Stop: 03/10/25 14:44 Last Admin: 02/10/25 09:32 Dose: 2 mcg Documented By: Admin: 02/09/25 09:53 Dose: 2 mcg Documented By: Admin: 02/08/25 16:29 Dose: 2 mcg Documented By: HANNAH Desmopressin Acetate (Desmopressin Acetate 4 Mcg/Ml Vial) 2 mcg IV QDAY ROBBIE Stop: 03/14/25 11:44 Last Admin: 02/15/25 10:14 Dose: 2 mcg Documented By: Admin: 02/14/25 08:45 Dose: 2 mcg Documented By: Admin: 02/13/25 09:47 Dose: 2 mcg Documented By: Admin: 02/12/25 11:42 Dose: 2 mcg Documented By: FLAKO Desmopressin Acetate (Desmopressin Acet Inj 4 Mcg/Ml Vial 10ml) 2 mcg SC X1 ONE Stop: 02/15/25 10:39 Last Admin: 02/15/25 13:11 Dose: Not Given Documented By: Non-Admin Reason: Discontinued Dextrose (Dextrose 50%-Water Inj 50 Ml Syringe) 50 ml IV Q15MIN PRN PRN Reason: BG <50 OR BG <70 & pt unresponsive Stop: 03/04/25 17:27 Last Admin: 02/07/25 06:11 Dose: 50 ml Documented By: Admin: 02/04/25 05:14 Dose: 50 ml Documented By: TAYO Diphenhydramine HCl (Diphenhydramine Inj 50 Mg/Ml Vial) 25 mg IVP PRNMRX1 PRN PRN Reason: MODERATE SEDATION Diphenhydramine HCl (Diphenhydramine Inj 50 Mg/Ml Vial) Confirm Administered Dose 50 mg .ROUTE .STK-MED ONE Stop: 02/10/25 19:18 Enoxaparin Sodium (Enoxaparin Sod Inj 40 Mg/0.4 Ml Syringe) 40 mg SC QDAY ROBBIE Stop: 02/16/25 15:29 Last Admin: 02/02/25 17:26 Dose: Not Given Documented By: NELA Non-Admin Reason: Cancelled by Provider Famotidine (Famotidine Inj 10 Mg/Ml Vial 2 Ml) 20 mg IVP BID [facility] Stop: 03/06/25 08:59 Last Admin: 02/08/25 20:21 Dose: 20 mg Documented By: Admin: 02/08/25 08:17 Dose: 20 mg Documented By: Admin: 02/07/25 21:11 Dose: 20 mg Documented By: ANA MARÍA Admin: 02/07/25 09:46 Dose: 20 mg Documented By: Admin: 02/06/25 21:12 Dose: 20 mg Documented By: Admin: 02/06/25 09:25 Dose: 20 mg Documented By: Admin: 02/05/25 20:07 Dose: 20 mg Documented By: ANA MARÍA Admin: 02/05/25 09:34 Dose: 20 mg Documented By: Admin: 02/04/25 21:03 Dose: 20 mg Documented By: Admin: 02/04/25 09:31 Dose: 20 mg Documented By: ISABELLE Fentanyl Citrate (Fentanyl Cit Inj 50 Mcg/Ml Amp 2ml) 50 mcg IVP Q2M PRN PRN Reason: MODERATE SEDATION Fentanyl Citrate (Fentanyl Cit Inj 50 Mcg/Ml Amp 2ml) Confirm Administered Dose 100 mcg .ROUTE .STK-MED ONE Stop: 02/10/25 19:18 Fluticasone Propionate (Fluticasone Javad Stanton 0.05% 16 Gm Btl) 2 spray NASAL DAILY [facility] Stop: 03/13/25 08:59 Last Admin: 02/18/25 08:41 Dose: 16 sprays Documented By: KENDALL Comments: x1 nasal spray Admin: 02/17/25 08:32 Dose: 2 sprays Documented By: Admin: 02/16/25 09:37 Dose: 2 sprays Documented By: Admin: 02/15/25 10:31 Dose: 1 sprays Documented By: Admin: 02/14/25 11:14 Dose: 2 sprays Documented By: Admin: 02/13/25 09:45 Dose: 2 sprays Documented By: Admin: 02/12/25 08:58 Dose: 2 sprays Documented By: Admin: 02/11/25 10:39 Dose: Not Given Documented By: FELIX Non-Admin Reason: pt. refused states it dont work for me. Glucagon (Glucagon Inj 1 Mg Vial) 1 mg IM Q15MIN PRN PRN Reason: BG <70, and no IV access Hydroxyzine HCl (Hydroxyzine Hcl 25 Mg Tablet) 25 mg PO X1 ONE Stop: 02/08/25 22:24 Last Admin: 02/08/25 22:55 Dose: 25 mg Documented By: JAVID Lactated Ringer's (Lactated Ringers) 1,000 mls @ 999 mls/hr IV .Q1H1M ONE Stop: 02/02/25 09:20 Last Infusion: 02/02/25 10:00 Dose: Infused Documented By: Admin: 02/02/25 08:44 Dose: 999 mls/hr Documented By: JUAN Lactated Ringer's (Lactated Ringers) 1,000 mls @ 999 mls/hr IV .Q1H1M ONE Stop: 02/02/25 10:04 Last Infusion: 02/02/25 10:59 Dose: Infused Documented By: Admin: 02/02/25 09:53 Dose: 999 mls/hr Documented By: NELA Ceftriaxone Sodium/Dextrose (Rocephin/D5w 1gm Iv Premix) 1 gm in 50 mls @ 100 mls/hr IV X1 ONE Stop: 02/02/25 09:33 Last Admin: 02/02/25 09:44 Dose: Not Given Documented By: NELA Non-Admin Reason: Cancelled by Provider Potassium Chloride (Kcl Ivpb) 10 meq in 100 mls @ 100 mls/hr IV Q1H ROBBIE Stop: 02/02/25 13:04 Last Infusion: 02/02/25 14:04 Dose: Infused Documented By: Admin: 02/02/25 13:02 Dose: 100 mls/hr Documented By: Infusion: 02/02/25 12:54 Dose: Infused Documented By: Admin: 02/02/25 11:54 Dose: 100 mls/hr Documented By: Infusion: 02/02/25 11:51 Dose: Infused Documented By: Admin: 02/02/25 10:51 Dose: 100 mls/hr Documented By: Infusion: 02/02/25 10:51 Dose: Infused Documented By: Admin: 02/02/25 09:53 Dose: 100 mls/hr Documented By: NELA Piperacillin Sod/Tazobactam (Sod 4.5 gm/ Sodium Chloride) 100 mls @ 200 mls/hr IV X1 ONE; Protocol Stop: 02/02/25 10:12 Last Infusion: 02/02/25 10:59 Dose: Infused Documented By: Admin: 02/02/25 09:55 Dose: 200 mls/hr Documented By: NELA Vancomycin/Sodium Chloride (Vancomycin/Ns 1 Gm Ivpb) 200 mls @ 120 mls/hr IV X1 ONE Stop: 02/02/25 11:24 Last Infusion: 02/02/25 12:38 Dose: Infused Documented By: Admin: 02/02/25 10:57 Dose: 120 mls/hr Documented By: JUAN Lactated Ringer's (Lactated Ringers) 1,000 mls @ 125 mls/hr IV .Q8H ROBBIE Stop: 03/04/25 10:18 Last Admin: 02/03/25 09:22 Dose: 125 mls/hr Documented By: FRANK(2) Infusion: 02/03/25 09:22 Dose: Infused Documented By: FRANK(2) Admin: 02/03/25 01:43 Dose: 125 mls/hr Documented By: Infusion: 02/03/25 01:43 Dose: Infused Documented By: Admin: 02/02/25 18:41 Dose: 125 mls/hr Documented By: Infusion: 02/02/25 18:41 Dose: Infused Documented By: Admin: 02/02/25 11:00 Dose: 125 mls/hr Documented By: JUAN Lactated Ringer's (Lactated Ringers) 1,000 mls @ 999 mls/hr IV .Q1H1M ONE Stop: 02/02/25 12:55 Last Infusion: 02/02/25 14:05 Dose: Infused Documented By: Admin: 02/02/25 11:58 Dose: 999 mls/hr Documented By: JUAN Vancomycin/Sodium Chloride (Vancomycin/Ns 1 Gm Ivpb) 200 mls @ 120 mls/hr IV X1 ONE Stop: 02/02/25 23:39 Last Infusion: 02/02/25 23:30 Dose: Infused Documented By: Admin: 02/02/25 21:30 Dose: 120 mls/hr Documented By: JESÚS Lactated Ringer's (Lactated Ringers) 1,000 mls @ 999 mls/hr IV .Q1H1M ONE Stop: 02/02/25 16:26 Last Infusion: 02/02/25 18:44 Dose: Infused Documented By: Admin: 02/02/25 17:02 Dose: 999 mls/hr Documented By: NELA Ceftriaxone Sodium 2 gm/ (Sodium Chloride) 50 mls @ 100 mls/hr IV QDAY@1400 ROBBIE Stop: 02/09/25 16:14 Last Infusion: 02/02/25 17:32 Dose: Infused Documented By: Admin: 02/02/25 17:03 Dose: 100 mls/hr Documented By: NELA Cefepime HCl 2 gm/ Sodium (Chloride) 50 mls @ 100 mls/hr IV Q8HR ROBBIE Stop: 02/09/25 17:16 Last Infusion: 02/09/25 19:29 Dose: Infused Documented By: Admin: 02/09/25 05:30 Dose: 100 mls/hr Documented By: Infusion: 02/08/25 22:52 Dose: Infused Documented By: Admin: 02/08/25 21:58 Dose: 100 mls/hr Documented By: Infusion: 02/08/25 20:26 Dose: Infused Documented By: Admin: 02/08/25 14:06 Dose: 100 mls/hr Documented By: Infusion: 02/08/25 05:37 Dose: Infused Documented By: Admin: 02/08/25 05:07 Dose: 100 mls/hr Documented By: Infusion: 02/07/25 21:42 Dose: Infused Documented By: Admin: 02/07/25 21:12 Dose: 100 mls/hr Documented By: Infusion: 02/07/25 15:21 Dose: Infused Documented By: Admin: 02/07/25 14:51 Dose: 100 mls/hr Documented By: Infusion: 02/07/25 05:52 Dose: Infused Documented By: Admin: 02/07/25 05:22 Dose: 100 mls/hr Documented By: Infusion: 02/06/25 21:40 Dose: Infused Documented By: Admin: 02/06/25 21:10 Dose: 100 mls/hr Documented By: Infusion: 02/06/25 14:26 Dose: Infused Documented By: Admin: 02/06/25 13:56 Dose: 100 mls/hr Documented By: Infusion: 02/06/25 06:14 Dose: Infused Documented By: Admin: 02/06/25 05:44 Dose: 100 mls/hr Documented By: Infusion: 02/06/25 04:31 Dose: Infused Documented By: Admin: 02/05/25 21:06 Dose: 100 mls/hr Documented By: Infusion: 02/05/25 15:10 Dose: Infused Documented By: Admin: 02/05/25 14:40 Dose: 100 mls/hr Documented By: Infusion: 02/05/25 05:54 Dose: Infused Documented By: Admin: 02/05/25 05:24 Dose: 100 mls/hr Documented By: Infusion: 02/04/25 21:33 Dose: Infused Documented By: Admin: 02/04/25 21:03 Dose: 100 mls/hr Documented By: Infusion: 02/04/25 15:18 Dose: Infused Documented By: Admin: 02/04/25 14:48 Dose: 100 mls/hr Documented By: Infusion: 02/04/25 05:48 Dose: Infused Documented By: Admin: 02/04/25 05:18 Dose: 100 mls/hr Documented By: Infusion: 02/03/25 21:45 Dose: Infused Documented By: Admin: 02/03/25 21:15 Dose: 100 mls/hr Documented By: Infusion: 02/03/25 13:49 Dose: Infused Documented By: Admin: 02/03/25 13:19 Dose: 100 mls/hr Documented By: FRANK(2) Infusion: 02/03/25 05:32 Dose: Infused Documented By: FRANK(2) Admin: 02/03/25 05:02 Dose: 100 mls/hr Documented By: Admin: 02/03/25 02:06 Dose: Not Given Documented By: TERRELL Non-Admin Reason: Other, see note Comments: Verified with pharmacist and ED Nurse, not given due to order being Q8 HR Infusion: 02/02/25 18:37 Dose: Infused Documented By: Admin: 02/02/25 17:33 Dose: 100 mls/hr Documented By: NELA Norepinephrine Bitartrate (Levophed In Ns 16mg/250ml) 16 mg in 250 mls @ 5.932 mls/hr IV .Q24H PRN; Protocol PRN Reason: PER protocol Stop: 03/04/25 18:40 Norepinephrine Bitartrate (Levophed In Ns 16mg/250ml) 16 mg in 250 mls @ 5.932 mls/hr IV .Q24H PRN; Protocol PRN Reason: PER PROTOCOL Stop: 03/04/25 18:47 Acetaminophen (Ofirmev Inj) 1,000 mg in 100 mls @ 250 mls/hr IV Q6HR ONE Stop: 02/02/25 21:34 Last Infusion: 02/02/25 21:57 Dose: Infused Documented By: Admin: 02/02/25 21:28 Dose: 250 mls/hr Documented By: JESÚS Vancomycin/Sodium Chloride (Vancomycin/Ns 1 Gm Ivpb) 200 mls @ 120 mls/hr IV Q8 HR [facility]; Protocol Stop: 02/10/25 08:59 Last Admin: 02/04/25 07:15 Dose: Not Given Documented By: TAYO Non-Admin Reason: Discontinued Admin: 02/03/25 21:58 Dose: Not Given Documented By: TAYO Non-Dick Reason: Per Protocol Admin: 02/03/25 14:02 Dose: 120 mls/hr Documented By: FRANK(2) Infusion: 02/03/25 11:03 Dose: Infused Documented By: FRANK(2) Admin: 02/03/25 09:22 Dose: 120 mls/hr Documented By: FRANK(2) Potassium Phosphate 22.5 mmol/ (Sodium Chloride) 507.5 mls @ 82.778 mls/hr IV X1 ONE Stop: 02/03/25 15:23 Last Admin: 02/03/25 10:21 Dose: 82.778 mls/hr Documented By: FRANK(2) Lactated Ringer's (Lactated Ringers) 500 mls @ 999 mls/hr IV .Q31M ONE Stop: 02/03/25 10:47 Last Admin: 02/03/25 10:46 Dose: Not Given Documented By: FRANK(2) Non-Admin Reason: Discontinued Lactated Ringer's (Lactated Ringers) 500 mls @ 125 mls/hr IV .Q4H ONE Stop: 02/03/25 14:17 Last Admin: 02/03/25 10:46 Dose: Not Given Documented By: FRANK(2) Non-Admin Reason: Discontinued Lactated Ringer's (Lactated Ringers) 500 mls @ 999 mls/hr IV .Q31M ONE Stop: 02/03/25 11:00 Last Admin: 02/03/25 10:31 Dose: 999 mls/hr Documented By: FRANK(2) Lactated Ringer's (Lactated Ringers) 500 mls @ 125 mls/hr IV .Q4H ONE Stop: 02/03/25 14:59 Last Admin: 02/03/25 10:31 Dose: 125 mls/hr Documented By: FRANK(2) Lactated Ringer's (Lactated Ringers) 1,000 mls @ 999 mls/hr IV .Q1H1M ONE Stop: 02/03/25 15:21 Last Admin: 02/03/25 14:39 Dose: 999 mls/hr Documented By: FRANK(2) Lactated Ringer's (Lactated Ringers) 1,000 mls @ 75 mls/hr IV .[id number] [facility] Stop: 03/05/25 16:58 Last Admin: 02/04/25 07:16 Dose: 75 mls/hr Documented By: Infusion: 02/04/25 06:53 Dose: Infused Documented By: Admin: 02/03/25 17:33 Dose: 75 mls/hr Documented By: FRANK(2) Vancomycin/Sodium Chloride (Vancomycin/Ns 1 Gm Ivpb) 200 mls @ 120 mls/hr IV BID@1000,2200 ROBBIE; Protocol Stop: 02/11/25 09:59 Last Infusion: 02/06/25 01:53 Dose: Infused Documented By: ANA MARÍA Admin: 02/06/25 00:07 Dose: 120 mls/hr Documented By: ANA MARÍA Comments: multiple attempts were made to get lab draw trough level. trough level came back at this time at a value of 13.1 Infusion: 02/05/25 12:40 Dose: Infused Documented By: Admin: 02/05/25 10:57 Dose: 120 mls/hr Documented By: Infusion: 02/04/25 23:16 Dose: Infused Documented By: Admin: 02/04/25 21:35 Dose: 120 mls/hr Documented By: Infusion: 02/04/25 11:13 Dose: Infused Documented By: Admin: 02/04/25 09:32 Dose: 120 mls/hr Documented By: ISABELLE Dextrose/Sodium Chloride (D5-1/2ns) 1,000 mls @ 100 mls/hr IV .Q10H ONE Stop: 02/04/25 18:51 Last Admin: 02/04/25 09:56 Dose: Not Given Documented By: ISABELLE Non-Admin Reason: Cancelled by Provider Dextrose/Sodium Chloride (D5-1/2ns) 1,000 mls @ 125 mls/hr IV .Q8H ONE Stop: 02/04/25 16:51 Last Admin: 02/04/25 09:31 Dose: 125 mls/hr Documented By: ISABELLE Potassium Chloride (Kcl Ivpb) 10 meq in 100 mls @ 100 mls/hr IV Q1H [facility] Stop: 02/05/25 11:49 Last Infusion: 02/05/25 16:00 Dose: Infused Documented By: Admin: 02/05/25 14:40 Dose: 75 mls/hr Documented By: Infusion: 02/05/25 13:58 Dose: Infused Documented By: Admin: 02/05/25 12:38 Dose: 75 mls/hr Documented By: Infusion: 02/05/25 12:28 Dose: Infused Documented By: Admin: 02/05/25 11:08 Dose: 75 mls/hr Documented By: Infusion: 02/05/25 10:54 Dose: Infused Documented By: Admin: 02/05/25 09:34 Dose: 75 mls/hr Documented By: AKUA Magnesium Sulfate (Magnesium Sulfate Ivpb) 2 gm in 50 mls @ 25 mls/hr IV X1 ONE Stop: 02/05/25 09:49 Last Infusion: 02/05/25 11:40 Dose: Infused Documented By: Admin: 02/05/25 09:33 Dose: 25 mls/hr Documented By: AKUA Vancomycin HCl (Vancomycin/Water 1250 Mg Ivpb) 250 mls @ 120 mls/hr IV BID@1000,2200 ROBBIE; Protocol Stop: 02/13/25 09:59 Last Infusion: 02/08/25 20:28 Dose: Infused Documented By: Admin: 02/08/25 09:23 Dose: 120 mls/hr Documented By: Infusion: 02/08/25 00:17 Dose: Infused Documented By: Admin: 02/07/25 22:12 Dose: 120 mls/hr Documented By: ANA MARÍA Infusion: 02/07/25 13:02 Dose: Infused Documented By: ANA MARÍA Admin: 02/07/25 10:57 Dose: 120 mls/hr Documented By: Infusion: 02/07/25 00:49 Dose: Infused Documented By: Admin: 02/06/25 22:44 Dose: 120 mls/hr Documented By: Infusion: 02/06/25 11:30 Dose: Infused Documented By: Admin: 02/06/25 09:25 Dose: 120 mls/hr Documented By: JEFF Dextrose (D5w) 1,000 mls @ 150 mls/hr IV .Q6H40M ONE Stop: 02/06/25 15:36 Last Admin: 02/06/25 09:25 Dose: 150 mls/hr Documented By: JEFF Lactated Ringer's (Lactated Ringers) 1,000 mls @ 125 mls/hr IV .Q8H [facility] Stop: 02/06/25 18:49 Last Admin: 02/06/25 12:58 Dose: 125 mls/hr Documented By: JEFF Sodium Chloride (Ns) 1,000 mls @ 150 mls/hr IV .Q6H40M [facility] Stop: 02/07/25 21:08 Last Admin: 02/08/25 07:55 Dose: Not Given Documented By: HANNAH Non-Admin Reason: Discontinued Admin: 02/07/25 02:51 Dose: 150 mls/hr Documented By: Infusion: 02/07/25 02:51 Dose: Infused Documented By: Admin: 02/06/25 20:11 Dose: 150 mls/hr Documented By: Sodium Chloride (Ns) 1,000 mls @ 999 mls/hr IV .Q1H1M ONE Stop: 02/06/25 19:31 Last Infusion: 02/06/25 20:36 Dose: Infused Documented By: Admin: 02/06/25 19:35 Dose: 999 mls/hr Documented By: Dextrose (D5w) 500 mls @ 250 mls/hr IV .Q2H [facility] Stop: 02/07/25 11:29 Last Admin: 02/08/25 07:55 Dose: Not Given Documented By: HANNAH Non-Admin Reason: Discontinued Dextrose (D5w) 1,000 mls @ 250 mls/hr IV .Q4H [facility] Stop: 02/07/25 13:29 Last Admin: 02/07/25 09:56 Dose: 250 mls/hr Documented By: MR Calcium Gluconate/Sodium Chloride (Calcium Gluc/Ns 1000mg Ivpb) 1,000 mg in 50 mls @ 50 mls/hr IV X1 ONE Stop: 02/07/25 11:45 Last Admin: 02/07/25 13:54 Dose: 50 mls/hr Documented By: MR Potassium Phosphate 22.5 mmol/ (Sodium Chloride) 507.5 mls @ 82.778 mls/hr IV X1 ONE Stop: 02/07/25 18:37 Last Admin: 02/07/25 14:51 Dose: 82.778 mls/hr Documented By: MR Comments: PT HAD MULTIPLE PROCEDURES THIS MORNING AWARE. Magnesium Sulfate (Magnesium Sulfate Ivpb) 2 gm in 50 mls @ 25 mls/hr IV X1 ONE Stop: 02/07/25 12:47 Last Admin: 02/07/25 13:54 Dose: 25 mls/hr Documented By: MR Dextrose (D5w) 500 mls @ 100 mls/hr IV .Q5H [facility] Stop: 02/07/25 21:14 Last Infusion: 02/08/25 20:28 Dose: Infused Documented By: Admin: 02/07/25 16:36 Dose: 100 mls/hr Documented By: MR Metronidazole (Flagyl 500 Mg Iv) 500 mg in 100 mls @ 200 mls/hr IV Q8HR [facility] Stop: 02/14/25 16:23 Last Infusion: 02/09/25 19:30 Dose: Infused Documented By: Admin: 02/09/25 05:36 Dose: 200 mls/hr Documented By: Infusion: 02/08/25 22:52 Dose: Infused Documented By: Admin: 02/08/25 21:58 Dose: 200 mls/hr Documented By: Infusion: 02/08/25 20:26 Dose: Infused Documented By: Admin: 02/08/25 14:06 Dose: 200 mls/hr Documented By: Infusion: 02/08/25 05:37 Dose: Infused Documented By: Admin: 02/08/25 05:07 Dose: 200 mls/hr Documented By: ANA MARÍA Infusion: 02/07/25 21:43 Dose: Infused Documented By: Admin: 02/07/25 21:13 Dose: 200 mls/hr Documented By: ANA MARÍA Infusion: 02/07/25 17:28 Dose: Infused Documented By: ANA MARÍA Admin: 02/07/25 16:58 Dose: 200 mls/hr Documented By: Dextrose (D5w) 1,000 mls @ 100 mls/hr IV .Q10H [facility] Stop: 02/08/25 17:59 Last Infusion: 02/08/25 20:28 Dose: Infused Documented By: Admin: 02/08/25 08:18 Dose: 100 mls/hr Documented By: HANNAH Dextrose (D5w) 1,000 mls @ 120 mls/hr IV .Q8H20M [facility] Stop: 02/09/25 17:59 Last Infusion: 02/09/25 19:29 Dose: Infused Documented By: Admin: 02/09/25 10:25 Dose: 120 mls/hr Documented By: Infusion: 02/09/25 10:20 Dose: Infused Documented By: Admin: 02/09/25 02:00 Dose: 120 mls/hr Documented By: Infusion: 02/09/25 00:49 Dose: Infused Documented By: Admin: 02/08/25 16:29 Dose: 120 mls/hr Documented By: Admin: 02/08/25 09:21 Dose: Not Given Documented By: HANNAH Non-Admin Reason: previous bag almost full, changed rate Potassium Phosphate 22.5 mmol/ (Sodium Chloride) 507.5 mls @ 82.778 mls/hr IV X1 ONE Stop: 02/09/25 13:52 Last Infusion: 02/09/25 19:30 Dose: Infused Documented By: Admin: 02/09/25 09:51 Dose: 82.778 mls/hr Documented By: RAFFY Potassium Phosphate 22.5 mmol/ (Sodium Chloride) 507.5 mls @ 82.778 mls/hr IV X1 ONE Stop: 02/09/25 20:07 Last Infusion: 02/09/25 18:16 Dose: 0 mls/hr Documented By: Admin: 02/09/25 16:46 Dose: 82.778 mls/hr Documented By: RAFFY Magnesium Sulfate (Magnesium Sulfate Ivpb) 2 gm in 50 mls @ 25 mls/hr IV X1 ONE Stop: 02/09/25 09:28 Last Infusion: 02/09/25 19:30 Dose: Infused Documented By: Admin: 02/09/25 09:51 Dose: 25 mls/hr Documented By: RAFFY Thiamine HCl 500 mg/ Sodium (Chloride) 105 mls @ 210 mls/hr IV TID ROBBIE Stop: 03/11/25 15:59 Last Admin: 02/12/25 05:18 Dose: 210 mls/hr Documented By: [email or web address](2) Infusion: 02/11/25 22:13 Dose: Infused Documented By: [email or web address](2) Admin: 02/11/25 21:43 Dose: 210 mls/hr Documented By: [email or web address](2) Infusion: 02/11/25 14:03 Dose: Infused Documented By: [email or web address](2) Admin: 02/11/25 13:33 Dose: 210 mls/hr Documented By: Infusion: 02/11/25 06:12 Dose: Infused Documented By: Admin: 02/11/25 05:27 Dose: 210 mls/hr Documented By: Infusion: 02/10/25 22:10 Dose: Infused Documented By: Admin: 02/10/25 21:03 Dose: 210 mls/hr Documented By: Infusion: 02/10/25 14:54 Dose: Infused Documented By: Admin: 02/10/25 14:24 Dose: 210 mls/hr Documented By: Infusion: 02/10/25 06:02 Dose: Infused Documented By: Admin: 02/10/25 05:12 Dose: 210 mls/hr Documented By: Infusion: 02/09/25 22:11 Dose: Infused Documented By: Admin: 02/09/25 21:02 Dose: 210 mls/hr Documented By: Infusion: 02/09/25 19:28 Dose: Infused Documented By: Admin: 02/09/25 16:46 Dose: 210 mls/hr Documented By: RAFFY Potassium Acetate 40 meq/Magnesium Sulfate 2 gm/Calcium Gluconate 1 gm/Multivitamins/Minerals 10 ml/Amino Acids 2,044 mls @ 120 mls/hr IV .Q17H2M [facility] Stop: 02/10/25 11:01 Last Infusion: 02/10/25 11:13 Dose: Infused Documented By: Admin: 02/09/25 18:11 Dose: 120 mls/hr Documented By: RAFFY Fat Emulsion Intravenous (Intralipid 20% Iv) 500 mls @ 32 mls/hr IV [id number]@1800 ROBBIE Stop: 03/11/25 17:59 Last Admin: 02/14/25 18:00 Dose: 32 mls/hr Documented By: Infusion: 02/13/25 09:23 Dose: Infused Documented By: Admin: 02/12/25 17:45 Dose: 32 mls/hr Documented By: Infusion: 02/11/25 09:38 Dose: Infused Documented By: Admin: 02/10/25 18:00 Dose: 32 mls/hr Documented By: Infusion: 02/10/25 09:48 Dose: Infused Documented By: Admin: 02/09/25 18:10 Dose: 32 mls/hr Documented By: RAFFY Potassium Phosphate 22.5 mmol/ (Sodium Chloride) 507.5 mls @ 82.778 mls/hr IV X1 ONE Stop: 02/10/25 14:26 Last Admin: 02/10/25 09:32 Dose: 82.778 mls/hr Documented By: RAFFY Potassium Phosphate 22.5 mmol/ (Sodium Chloride) 507.5 mls @ 82.778 mls/hr IV X1 ONE Stop: 02/10/25 21:07 Last Admin: 02/10/25 18:15 Dose: 82.778 mls/hr Documented By: RAFFY Potassium Acetate 40 meq/ (Amino Acids) 2,020 mls @ 120 mls/hr IV .[id number] [facility] Stop: 02/11/25 03:49 Last Infusion: 02/11/25 04:33 Dose: Infused Documented By: Admin: 02/10/25 11:06 Dose: 120 mls/hr Documented By: RAFFY Multivitamins/Minerals 10 ml/ (Amino Acids) 1,010 mls @ 120 mls/hr IV .Q8H25M [facility] Stop: 02/11/25 12:24 Last Admin: 02/11/25 04:17 Dose: 120 mls/hr Documented By: FRANK Sodium Chloride (Ns) 500 mls @ 20 mls/hr IV .Q24H ONE Stop: 02/11/25 19:09 Last Admin: 02/10/25 21:01 Dose: Not Given Documented By: FRANK Non-Admin Reason: or order Potassium Phosphate 22.5 mmol/ (Sodium Chloride) 507.5 mls @ 82.778 mls/hr IV X1 ONE Stop: 02/11/25 14:04 Last Admin: 02/11/25 09:47 Dose: Not Given Documented By: FELIX Non-Admin Reason: Discontinued Magnesium Sulfate (Magnesium Sulfate Ivpb) 4 gm in 50 mls @ 12.5 mls/hr IV X1 ONE Stop: 02/11/25 11:58 Last Admin: 02/11/25 10:14 Dose: 12.5 mls/hr Documented By: FELIX Potassium Phosphate (Pot Phos 15 Mmol In Ns 250 Ml) 15 mmol in 250 mls @ 83.333 mls/hr IV Q3H [facility] Stop: 02/11/25 14:14 Last Admin: 02/11/25 13:55 Dose: 83.333 mls/hr Documented By: Infusion: 02/11/25 13:16 Dose: Infused Documented By: Admin: 02/11/25 10:15 Dose: 83.333 mls/hr Documented By: FELIX Multivitamins/Minerals 10 ml/Potassium Acetate 40 meq/Potassium Phosphate 30 mmol/Magnesium Sulfate 2 gm/ Amino Acids 2,044 mls @ 120 mls/hr IV .Q17H2M [facility] Stop: 02/12/25 22:28 Last Admin: 02/12/25 05:48 Dose: 120 mls/hr Documented By: ABIEL(2) Infusion: 02/12/25 05:48 Dose: Infused Documented By: ABIEL(2) Admin: 02/11/25 13:40 Dose: 120 mls/hr Documented By: FELIX Thiamine HCl 250 mg/ Sodium (Chloride) 102.5 mls @ 210 mls/hr IV TID [facility] Stop: 03/14/25 13:59 Last Admin: 02/15/25 05:46 Dose: 210 mls/hr Documented By: Infusion: 02/14/25 22:39 Dose: Infused Documented By: Admin: 02/14/25 22:09 Dose: 210 mls/hr Documented By: Infusion: 02/14/25 14:04 Dose: Infused Documented By: Admin: 02/14/25 13:34 Dose: 210 mls/hr Documented By: Infusion: 02/14/25 06:25 Dose: Infused Documented By: Admin: 02/14/25 05:55 Dose: 210 mls/hr Documented By: Infusion: 02/13/25 21:35 Dose: Infused Documented By: Admin: 02/13/25 21:05 Dose: 210 mls/hr Documented By: Infusion: 02/13/25 14:27 Dose: Infused Documented By: Admin: 02/13/25 13:57 Dose: 210 mls/hr Documented By: Infusion: 02/13/25 05:52 Dose: Infused Documented By: Admin: 02/13/25 05:22 Dose: 210 mls/hr Documented By: Infusion: 02/12/25 22:10 Dose: Infused Documented By: Admin: 02/12/25 21:50 Dose: 210 mls/hr Documented By: Infusion: 02/12/25 14:15 Dose: Infused Documented By: Admin: 02/12/25 13:45 Dose: 210 mls/hr Documented By: MGD Multivitamins/Minerals 10 ml/Potassium Phosphate 30 mmol/Magnesium Sulfate 2 gm/Calcium Gluconate 1 gm/ Amino Acids 2,034 mls @ 120 mls/hr IV .[id number] [facility] Stop: 02/13/25 15:24 Last Infusion: 02/14/25 14:12 Dose: Infused Documented By: Admin: 02/12/25 23:07 Dose: 120 mls/hr Documented By: WO Multivitamins/Minerals 10 ml/Potassium Phosphate 30 mmol/Magnesium Sulfate 2 gm/Potassium Acetate 50 meq/Amino Acids 2,049 mls @ 120 mls/hr IV .Q17H5M [facility] Stop: 02/15/25 01:34 Last Admin: 02/14/25 12:28 Dose: 120 mls/hr Documented By: Infusion: 02/14/25 11:41 Dose: Infused Documented By: Admin: 02/13/25 18:36 Dose: 120 mls/hr Documented By: MOLLY Lactated Ringer's (Lactated Ringers) 500 mls @ 999 mls/hr IV .Q31M ONE Stop: 02/14/25 00:10 Last Admin: 02/14/25 00:05 Dose: 999 mls/hr Documented By: RYLEY Magnesium Sulfate (Magnesium Sulfate Ivpb) 2 gm in 50 mls @ 25 mls/hr IV X1 ONE Stop: 02/14/25 10:36 Last Admin: 02/14/25 10:14 Dose: 25 mls/hr Documented By: MOLLY Multivitamins/Minerals 10 ml/Potassium Phosphate 30 mmol/Magnesium Sulfate 2 gm/Potassium Acetate 50 meq/Amino Acids 2,049 mls @ 100 mls/hr IV .[id number] [facility] Stop: 02/15/25 07:59 Last Admin: 02/14/25 14:16 Dose: 100 mls/hr Documented By: MOLLY Multivitamins/Minerals 10 ml/Potassium Phosphate 30 mmol/Magnesium Sulfate 2 gm/Potassium Acetate 60 meq/Amino Acids 2,054 mls @ 100 mls/hr IV .[id number] [facility] Stop: 02/16/25 04:32 Last Admin: 02/15/25 10:15 Dose: 100 mls/hr Documented By: Insulin Human Lispro (Insulin Lispro (Admelog) 1 Unit/0.01 Ml Unit) 0 unit SC AC [facility]BIE; Protocol Stop: 03/05/25 07:29 Last Admin: 02/04/25 07:51 Dose: Not Given Documented By: ISABELLE Non-Admin Reason: Cancelled by Provider Admin: 02/03/25 17:11 Dose: Not Given Documented By: [email or web address]) Non-Admin Reason: Per Protocol Admin: 02/03/25 11:19 Dose: Not Given Documented By: FRANK(2) Non-Admin Reason: Per Protocol Admin: 02/03/25 07:18 Dose: Not Given Documented By: FRANK(2) Non-Admin Reason: Per Protocol Insulin Human Lispro (Insulin Lispro (Admelog) 1 Unit/0.01 Ml Unit) 0 unit SC Q6HR [facility]BIE; Protocol Stop: 03/06/25 11:59 Insulin Human Lispro (Insulin Lispro (Admelog) 1 Unit/0.01 Ml Unit) 0 unit SC ACHS [facility]BIE; Protocol Stop: 03/06/25 11:29 Last Admin: 02/09/25 12:33 Dose: Not Given Documented By: PAUL Non-Admin Reason: Discontinued Admin: 02/06/25 17:57 Dose: Not Given Documented By: JEFF Non-Admin Reason: blood sugar 114 Admin: 02/06/25 12:11 Dose: Not Given Documented By: JEFF Non-Admin Reason: blood sugar 99 Admin: 02/06/25 07:59 Dose: Not Given Documented By: JEFF Non-Admin Reason: blood sugar 84 Admin: 02/05/25 20:01 Dose: Not Given Documented By: CMC Non-Admin Reason: Per Protocol Admin: 02/05/25 17:25 Dose: Not Given Documented By: JT Non-Admin Reason: Per Protocol Admin: 02/05/25 11:30 Dose: Not Given Documented By: JT Non-Admin Reason: Per Protocol Admin: 02/05/25 07:26 Dose: Not Given Documented By: JT Non-Admin Reason: Per Protocol Admin: 02/04/25 20:52 Dose: Not Given Documented By: CCT Non-Admin Reason: Per Protocol Admin: 02/04/25 17:17 Dose: Not Given Documented By: ISABELLE Non-Admin Reason: Glucose, LOW Admin: 02/04/25 11:40 Dose: Not Given Documented By: ISABELLE Non-Admin Reason: Glucose, LOW Insulin Human Lispro (Insulin Lispro (Admelog) 1 Unit/0.01 Ml Unit) 0 unit SC Q6HR [facility]BIE; Protocol Stop: 03/09/25 00:00 Last Admin: 02/14/25 01:48 Dose: Not Given Documented By: RYLEY Non-Admin Reason: Wrong Time Comments: provider changing order times Admin: 02/13/25 18:31 Dose: Not Given Documented By: MOLLY Non-Admin Reason: Per Protocol Admin: 02/13/25 12:35 Dose: Not Given Documented By: MOLLY Non-Admin Reason: Per Protocol Admin: 02/13/25 05:18 Dose: Not Given Documented By: NAIMA Non-Admin Reason: Per Protocol Admin: 02/12/25 23:21 Dose: Not Given Documented By: WO Non-Admin Reason: Per Protocol Admin: 02/12/25 17:23 Dose: Not Given Documented By: MGD Non-Admin Reason: Per Protocol Admin: 02/12/25 12:12 Dose: Not Given Documented By: MGD Non-Admin Reason: Per Protocol Admin: 02/12/25 05:34 Dose: Not Given Documented By: [email or web address](2) Non-Admin Reason: Per Protocol Admin: 02/12/25 01:03 Dose: Not Given Documented By: [email or web address](2) Non-Admin Reason: Per Protocol Admin: 02/11/25 18:07 Dose: Not Given Documented By: KF Non-Admin Reason: Per Protocol Admin: 02/11/25 12:22 Dose: Not Given Documented By: KF Non-Admin Reason: Per Protocol Admin: 02/11/25 05:46 Dose: Not Given Documented By: KAA Non-Admin Reason: Per Protocol Admin: 02/11/25 00:00 Dose: Not Given Documented By: KAA Non-Admin Reason: Per Protocol Admin: 02/10/25 18:00 Dose: Not Given Documented By: LEDEB Non-Admin Reason: Per Protocol Admin: 02/10/25 11:31 Dose: Not Given Documented By: LEDEB Non-Admin Reason: Per Protocol Admin: 02/10/25 06:02 Dose: Not Given Documented By: KAA Non-Admin Reason: Per Protocol Admin: 02/09/25 23:56 Dose: Not Given Documented By: KAA Non-Admin Reason: Per Protocol Admin: 02/09/25 18:12 Dose: Not Given Documented By: LEDEB Non-Admin Reason: Per Protocol Admin: 02/09/25 11:39 Dose: Not Given Documented By: DL Non-Admin Reason: Per Protocol Admin: 02/09/25 06:25 Dose: Not Given Documented By: ELLSE Non-Admin Reason: Other, see note Admin: 02/09/25 00:00 Dose: Not Given Documented By: ELLSE Non-Admin Reason: Other, see note Admin: 02/08/25 17:43 Dose: Not Given Documented By: BR Non-Admin Reason: Per Protocol Admin: 02/08/25 12:41 Dose: Not Given Documented By: BR Non-Admin Reason: Per Protocol Admin: 02/08/25 05:16 Dose: Not Given Documented By: CMC Non-Admin Reason: Per Protocol Admin: 02/07/25 23:13 Dose: Not Given Documented By: CMC Non-Admin Reason: Per Protocol Admin: 02/07/25 19:54 Dose: Not Given Documented By: MR Non-Admin Reason: Per Protocol Admin: 02/07/25 12:36 Dose: Not Given Documented By: MR Non-Admin Reason: Per Protocol Admin: 02/07/25 06:00 Dose: Not Given Documented By: ME Non-Admin Reason: Per Protocol Comments: MADE AWARE Admin: 02/07/25 00:14 Dose: Not Given Documented By: Non-Admin Reason: Per Protocol Insulin Human Lispro (Insulin Lispro (Admelog) 1 Unit/0.01 Ml Unit) 0 unit SC [facility]; Protocol Stop: 03/16/25 07:29 Last Admin: 02/18/25 13:23 Dose: Not Given Documented By: KENDALL Non-Admin Reason: Per Protocol Comments: NONE GIVEN PER PROTOCOL Admin: 02/18/25 08:27 Dose: Not Given Documented By: KENDALL Non-Admin Reason: Per Protocol Admin: 02/17/25 21:25 Dose: Not Given Documented By: ABIEL Non-Admin Reason: Per Protocol Admin: 02/17/25 17:45 Dose: Not Given Documented By: MOLLY Non-Admin Reason: Per Protocol Admin: 02/17/25 11:26 Dose: Not Given Documented By: MOLLY Non-Admin Reason: Per Protocol Admin: 02/17/25 08:00 Dose: Not Given Documented By: MOLLY Non-Admin Reason: Per Protocol Admin: 02/16/25 20:26 Dose: Not Given Documented By: NAIMA Non-Admin Reason: Per Protocol Admin: 02/16/25 18:00 Dose: Not Given Documented By: MOLLY Non-Admin Reason: Per Protocol Admin: 02/16/25 12:00 Dose: Not Given Documented By: MOLLY Non-Admin Reason: Per Protocol Admin: 02/16/25 08:32 Dose: Not Given Documented By: MOLLY Non-Admin Reason: Per Protocol Admin: 02/15/25 21:15 Dose: Not Given Documented By: Non-Admin Reason: blood glucose 104 Admin: 02/15/25 17:48 Dose: Not Given Documented By: Non-Admin Reason: Per Protocol Admin: 02/15/25 11:24 Dose: Not Given Documented By: Non-Admin Reason: Per Protocol Admin: 02/15/25 08:54 Dose: Not Given Documented By: Non-Admin Reason: Per Protocol Admin: 02/14/25 22:08 Dose: Not Given Documented By: GARCIA Non-Admin Reason: Per Protocol Admin: 02/14/25 17:18 Dose: Not Given Documented By: MOLLY Non-Admin Reason: Per Protocol Admin: 02/14/25 11:59 Dose: Not Given Documented By: MOLLY Non-Admin Reason: Per Protocol Admin: 02/14/25 07:54 Dose: Not Given Documented By: MOLLY Non-Admin Reason: Per Protocol Lactulose (Lactulose Syrup 20 Gm/30 Ml Udc) 30 gm PO X1 ONE; Protocol Stop: 02/02/25 16:22 Last Admin: 02/02/25 18:41 Dose: 30 gm Documented By: NELA Lactulose (Lactulose Syrup 20 Gm/30 Ml Udc) 20 gm PO X1 ONE; Protocol Stop: 02/04/25 11:11 Last Admin: 02/04/25 11:35 Dose: 20 gm Documented By: ISABELLE Levetiracetam (Levetiracetam Inj 100 Mg/Ml Vial 5ml) 1,000 mg IVP X1 ONE Stop: 02/02/25 07:54 Last Admin: 02/02/25 08:37 Dose: 1,000 mg Documented By: JUAN Lorazepam (Lorazepam 0.5 Mg Tablet) 1 mg PO X1 PRN PRN Reason: Agitation Stop: 02/10/25 17:40 Last Admin: 02/06/25 09:40 Dose: 1 mg Documented By: JEFF Metoclopramide HCl (Metoclopramide Inj 5 Mg/Ml Vial 2 Ml) 5 mg IVP X1 ONE; Protocol Stop: 02/06/25 18:33 Last Admin: 02/06/25 20:45 Dose: Not Given Documented By: Non-Admin Reason: per Dr. Mcnally Metoclopramide HCl (Metoclopramide 5 Mg Tablet) 5 mg PO Q8HR ROBBIE Stop: 03/18/25 13:59 Last Admin: 02/18/25 14:30 Dose: 5 mg Documented By: Admin: 02/18/25 05:23 Dose: 5 mg Documented By: Admin: 02/17/25 21:25 Dose: 5 mg Documented By: Admin: 02/17/25 13:53 Dose: 5 mg Documented By: Admin: 02/17/25 05:03 Dose: 5 mg Documented By: Admin: 02/16/25 21:07 Dose: 5 mg Documented By: Admin: 02/16/25 13:15 Dose: 5 mg Documented By: MOLLY Metoprolol Succinate (Metoprolol Succinate Xl 25 Mg Tabcr) 25 mg PO QDAY ROBBIE Stop: 03/19/25 13:29 Last Admin: 02/18/25 08:25 Dose: 25 mg Documented By: Admin: 02/17/25 14:04 Dose: 25 mg Documented By: MOLLY Midazolam HCl (Midazolam Inj 1 Mg/Ml Vial 2 Ml) 1 mg IVP X1 ONE Stop: 02/06/25 11:09 Last Admin: 02/06/25 11:05 Dose: 1 mg Documented By: JEFF Midazolam HCl (Midazolam Inj 1 Mg/Ml Vial 2 Ml) 2 mg IVP Q2M PRN PRN Reason: Moderate Sedation Midazolam HCl (Midazolam Inj 1 Mg/Ml Vial 2 Ml) Confirm Administered Dose 4 mg .ROUTE .STK-MED ONE Stop: 02/10/25 19:18 Mirtazapine (Mirtazapine 15 Mg Tablet) 7.5 mg PO QDAY ROBBIE Stop: 03/18/25 11:44 Last Admin: 02/18/25 08:26 Dose: 7.5 mg Documented By: Admin: 02/17/25 08:32 Dose: 7.5 mg Documented By: Admin: 02/16/25 13:16 Dose: 7.5 mg Documented By: MOLLY Montelukast Sodium (Montelukast Sodium 10 Mg Tablet) 10 mg PO DAILY ROBBIE Stop: 03/13/25 08:59 Last Admin: 02/13/25 19:20 Dose: Not Given Documented By: JOSE Non-Admin Reason: Discontinued Admin: 02/12/25 08:50 Dose: Not Given Documented By: FLAKO Non-Admin Reason: NPO Admin: 02/11/25 09:52 Dose: Not Given Documented By: KF Non-Admin Reason: NPO Montelukast Sodium (Montelukast Sodium 10 Mg Tablet) 10 mg NG DAILY ROBBIE Stop: 03/13/25 08:59 Montelukast Sodium (Montelukast Sodium 10 Mg Tablet) 10 mg NG DAILY ROBBIE Stop: 03/15/25 09:29 Last Admin: 02/13/25 09:47 Dose: 10 mg Documented By: MOLLY Montelukast Sodium (Montelukast Sodium 10 Mg Tablet) 10 mg PO DAILY ROBBIE Stop: 03/15/25 09:29 Last Admin: 02/18/25 08:26 Dose: 10 mg Documented By: Admin: 02/17/25 08:32 Dose: 10 mg Documented By: Admin: 02/16/25 09:38 Dose: 10 mg Documented By: Admin: 02/15/25 09:43 Dose: 10 mg Documented By: Admin: 02/14/25 08:29 Dose: 10 mg Documented By: MOLLY Non-Formulary Medication (Omeprazole) 40 mg PO DAILY [facility] Stop: 03/13/25 08:59 Ondansetron HCl (Ondansetron Inj 2 Mg/Ml Inj 2 Ml) 4 mg IVP Q6H PRN; Protocol PRN Reason: NAUSEA OR VOMITING Stop: 03/04/25 15:16 Last Admin: 02/13/25 21:17 Dose: 4 mg Documented By: Admin: 02/06/25 18:07 Dose: 4 mg Documented By: JOSE Ondansetron HCl (Ondansetron Odt 4 Mg Tabrap) 4 mg PO Q8H PRN; Protocol PRN Reason: nausea and vomiting Stop: 03/12/25 20:58 Pantoprazole Sodium (Pantoprazole Inj 40 Mg Vial) 40 mg IVP Q12HR ROBBIE Stop: 03/04/25 20:59 Last Admin: 02/02/25 19:11 Dose: 40 mg Documented By: JESÚS Pantoprazole Sodium (Pantoprazole Inj 40 Mg Vial) 40 mg IVP QDAY ROBBIE Stop: 03/05/25 08:59 Last Admin: 02/03/25 09:25 Dose: 40 mg Documented By: FRANK(2) Pantoprazole Sodium (Pantoprazole Inj 40 Mg Vial) 40 mg IVP BID ROBBIE Stop: 03/11/25 08:59 Last Admin: 02/15/25 10:14 Dose: 40 mg Documented By: Admin: 02/14/25 22:09 Dose: 40 mg Documented By: Admin: 02/14/25 08:32 Dose: 40 mg Documented By: Admin: 02/13/25 20:53 Dose: 40 mg Documented By: Admin: 02/13/25 09:46 Dose: 40 mg Documented By: Admin: 02/12/25 20:54 Dose: 40 mg Documented By: Admin: 02/12/25 08:57 Dose: 40 mg Documented By: Admin: 02/11/25 21:43 Dose: 40 mg Documented By: ABIEL(2) Admin: 02/11/25 10:17 Dose: 40 mg Documented By: Admin: 02/10/25 21:00 Dose: 40 mg Documented By: Admin: 02/10/25 09:32 Dose: 40 mg Documented By: Admin: 02/09/25 20:31 Dose: 40 mg Documented By: Admin: 02/09/25 09:51 Dose: 40 mg Documented By: RAFFY Pantoprazole Sodium (Pantoprazole 40 Mg Tablet) 40 mg PO BID ROBBIE Stop: 03/17/25 20:59 Last Admin: 02/18/25 08:26 Dose: 40 mg Documented By: Admin: 02/17/25 21:25 Dose: 40 mg Documented By: Admin: 02/17/25 08:32 Dose: 40 mg Documented By: Admin: 02/16/25 20:41 Dose: 40 mg Documented By: Admin: 02/16/25 09:37 Dose: 40 mg Documented By: Admin: 02/15/25 21:05 Dose: 40 mg Documented By: (Ipratropium [place] 42 Mcg (0.06 %) [place],Non-Aerosol 2 ea NASAL BID ROBBIE Stop: 03/13/25 08:59 Last Admin: 02/17/25 08:33 Dose: Not Given Documented By: MOLLY Non-Admin Reason: Medication Not Available Admin: 02/16/25 20:37 Dose: Not Given Documented By: NAIMA Non-Admin Reason: Medication Not Available Admin: 02/16/25 09:38 Dose: Not Given Documented By: MOLLY Non-Admin Reason: family did not bring veterinary medical officer: 02/15/25 21:39 Dose: Not Given Documented By: Non-Admin Reason: Medication Not Available Admin: 02/15/25 10:12 Dose: Not Given Documented By: Non-Admin Reason: Patient family has not brought medication Admin: 02/14/25 21:00 Dose: Not Given Documented By: GARCIA Non-Admin Reason: Medication Not Available Admin: 02/14/25 09:01 Dose: Not Given Documented By: MOLLY Non-Admin Reason: family hasnt brought medication Admin: 02/14/25 01:49 Dose: Not Given Documented By: RYLEY Non-Admin Reason: Medication Not Available Admin: 02/13/25 09:58 Dose: Not Given Documented By: MOLLY Non-Admin Reason: med not in [place]. family will bring mc kay stitcher: 02/12/25 20:56 Dose: Not Given Documented By: NAIMA Non-Admin Reason: Medication Not Available Admin: 02/12/25 17:25 Dose: Not Given Documented By: FLAKO Non-Admin Reason: family will bring veterinary medical officer: 02/11/25 21:44 Dose: Not Given Documented By: ABIEL(2) Non-Admin Reason: Medication Not Available Admin: 02/11/25 09:49 Dose: Not Given Documented By: FELIX Non-Admin Reason: family to bring to bedside. Pharmacy Consult (Vancomycin Pharmacy To Dose 1 Each Each) 1 each IV QDAY PRN PRN Reason: CONSULT Stop: 03/04/25 09:44 Polyethylene Glycol/Electrolytes (Na Chiang/Nahco3/Venu/Peg (Golytely) 4,000 Ml Btl) 4,000 ml NG X1 ONE Stop: 02/12/25 13:09 Last Admin: 02/12/25 13:45 Dose: 4,000 ml Documented By: MGChamp Polyethylene Glycol/Electrolytes (Na Chiang/Nahco3/Venu/Peg (Golytely) 4,000 Ml Btl) 4,000 ml NG X1 ONE Stop: 02/13/25 03:39 Last Admin: 02/13/25 04:32 Dose: 4,000 ml Documented By: NAIMA Potassium Chloride (Potassium Chloride 20 Meq Tabcr) 40 meq PO X1 ONE Stop: 02/02/25 09:05 Last Admin: 02/02/25 09:57 Dose: 40 meq Documented By: NELA Potassium Chloride (Potassium Chloride 20 Meq Tabcr) 40 meq PO X1 ONE Stop: 02/03/25 07:43 Last Admin: 02/03/25 09:14 Dose: Not Given Documented By: FRANK(2) Non-Admin Reason: NPO Potassium Chloride (Potassium Chloride 10% 20 Meq/15 Ml Udc) 40 meq PO X1 ONE Stop: 02/14/25 08:36 Last Admin: 02/14/25 10:14 Dose: 40 meq Documented By: MOLLY Potassium Phos/Sodium Phos (Naph,Kph Mbdb 1 Packet (1.5 Gm)) 1 packet PO X1 ONE Stop: 02/03/25 07:45 Last Admin: 02/03/25 09:14 Dose: Not Given Documented By: FRANK(2) Non-Admin Reason: NPO Potassium Phos/Sodium Phos (Naph,Kph Mbdb 1 Packet (1.5 Gm)) 2 packet PO X1 ONE Stop: 02/04/25 11:21 Last Admin: 02/04/25 11:34 Dose: 2 packet Documented By: ISABELLE Potassium Phos/Sodium Phos (Naph,Kph Mbdb 1 Packet (1.5 Gm)) 1 packet PO X1 ONE Stop: 02/05/25 07:51 Last Admin: 02/05/25 09:35 Dose: 1 packet Documented By: AKUA Potassium Phos/Sodium Phos (Naph,Kph Mbdb 1 Packet (1.5 Gm)) 1 packet PO BID ROBBIE Stop: 03/07/25 20:59 Last Admin: 02/18/25 08:26 Dose: 1 packet Documented By: Admin: 02/17/25 21:25 Dose: 1 packet Documented By: Admin: 02/17/25 08:33 Dose: 1 packet Documented By: Admin: 02/16/25 20:41 Dose: 1 packet Documented By: Admin: 02/16/25 09:38 Dose: 1 packet Documented By: Admin: 02/15/25 21:05 Dose: 1 packet Documented By: Admin: 02/07/25 09:15 Dose: Not Given Documented By: Non-Admin Reason: NPO Admin: 02/06/25 21:00 Dose: Not Given Documented By: Non-Admin Reason: NPO Admin: 02/06/25 09:25 Dose: 1 packet Documented By: Admin: 02/05/25 20:07 Dose: 1 packet Documented By: CMC Pyridoxine HCl (Pyridoxine Inj 100 Mg/Ml Vial) 100 mg IM QDAY ROBBIE Stop: 03/09/25 17:14 Last Admin: 02/11/25 10:16 Dose: 100 mg Documented By: Admin: 02/10/25 09:32 Dose: 100 mg Documented By: Admin: 02/09/25 11:46 Dose: 100 mg Documented By: Admin: 02/07/25 17:49 Dose: 100 mg Documented By: Admin: 02/07/25 17:48 Dose: 100 mg Documented By: Pyridoxine HCl (Pyridoxine Inj 100 Mg/Ml Vial) 100 mg IV QDAY ROBBIE Stop: 03/13/25 10:14 Last Admin: 02/15/25 10:14 Dose: 100 mg Documented By: Admin: 02/14/25 08:31 Dose: 100 mg Documented By: Admin: 02/13/25 09:46 Dose: 100 mg Documented By: Admin: 02/12/25 08:58 Dose: 100 mg Documented By: MGChamp Admin: 02/11/25 10:19 Dose: 100 mg Documented By: FELIX Pyridoxine HCl (Pyridoxine 50 Mg Tablet) 100 mg PO QDAY ROBBIE Stop: 03/18/25 08:59 Last Admin: 02/18/25 08:25 Dose: 100 mg Documented By: Admin: 02/17/25 08:32 Dose: 100 mg Documented By: Admin: 02/16/25 09:38 Dose: 100 mg Documented By: MOLLY Sodium Bicarbonate (Sodium Bicarb Inj 8.4% Syr 50 Ml Syringe) 50 ml IV X1 ONE Stop: 02/07/25 21:46 Last Admin: 02/07/25 22:12 Dose: 50 ml Documented By: C[facility] Sucralfate (Sucralfate Susp 1 Gm/10 Ml Udc) 1 gm PO TID ROBBIE Stop: 03/19/25 08:29 Last Admin: 02/18/25 14:30 Dose: 1 gm Documented By: Admin: 02/18/25 05:23 Dose: 1 gm Documented By: Admin: 02/17/25 21:25 Dose: 1 gm Documented By: Admin: 02/17/25 13:53 Dose: 1 gm Documented By: Admin: 02/17/25 08:31 Dose: 1 gm Documented By: MOLLY Terbinafine HCl (Terbinafine Hcl Cr 1% 12 Gm Tube) 0 gm TOP X1 ONE Stop: 02/03/25 19:13 Last Admin: 02/04/25 05:18 Dose: Not Given Documented By: TAYO Non-Admin Reason: Medication Not Available Thiamine HCl (Thiamine Inj 100 Mg/Ml Vial 2 Ml) 100 mg IVP QDAY [facility] Stop: 03/09/25 17:14 Last Admin: 02/08/25 08:17 Dose: 100 mg Documented By: Admin: 02/07/25 17:47 Dose: 100 mg Documented By: Thiamine HCl (Thiamine Inj 100 Mg/Ml Vial 2 Ml) 100 mg IVP BID [facility] Stop: 03/10/25 20:59 Last Admin: 02/09/25 09:52 Dose: 100 mg Documented By: Admin: 02/08/25 20:20 Dose: 100 mg Documented By: JAVID Thiamine HCl (Thiamine Inj 100 Mg/Ml Vial 2 Ml) 500 mg IVP QDAY [facility] Stop: 03/11/25 10:09 Last Admin: 02/09/25 10:37 Dose: Not Given Documented By: PAUL Non-Admin Reason: Discontinued Thiamine HCl (Thiamine Inj 100 Mg/Ml Vial 2 Ml) 500 mg IVP QDAY [facility] Stop: 03/12/25 08:59 Thiamine HCl (Thiamine Inj 100 Mg/Ml Vial 2 Ml) 400 mg IVP X1 ONE Stop: 02/09/25 10:31 Last Admin: 02/09/25 11:42 Dose: 400 mg Documented By: RAFFY Thiamine HCl (Thiamine Inj 100 Mg/Ml Vial 2 Ml) 500 mg IVP TID [facility] Stop: 03/11/25 13:59 Thiamine HCl (Thiamine 100 Mg Tablet) 250 mg PO TID [facility] Stop: 03/17/25 13:59 Last Admin: 02/18/25 05:23 Dose: 250 mg Documented By: Admin: 02/17/25 21:25 Dose: 250 mg Documented By: Admin: 02/17/25 13:53 Dose: 250 mg Documented By: Admin: 02/17/25 05:03 Dose: 250 mg Documented By: Admin: 02/16/25 21:07 Dose: 250 mg Documented By: Admin: 02/16/25 13:11 Dose: 250 mg Documented By: Admin: 02/16/25 05:23 Dose: 250 mg Documented By: Admin: 02/15/25 21:05 Dose: 250 mg Documented By: Admin: 02/15/25 13:56 Dose: 250 mg Documented By: Thiamine HCl (Thiamine 100 Mg Tablet) 100 mg PO QDAY ROBBIE Stop: 03/20/25 08:59 Last Admin: 02/18/25 08:26 Dose: 100 mg Documented By: KENDALL see above if any Consultations Consultation(s) initiated? (list below): Yes Consultation #1 (Physician, Specialty, Details): Tried calling the hospitalist team and no answer. Will try again in 5 minutes. Time: 14:30 Consultation #2 (Physician, Specialty, Details): Discussed test HPI, PMHx, lab, radiology results and/or management with resident working with the hospitalist. Will admit for further evaluation and management. Accepts patient for admission. Time: 14:58 Diagnosis Weakness Differential Diagnosis: other (Postictal state, metabolic derangement (including hypokalemia), and arrhythmia with secondary weakness.) Most likely diagnosis given after review of the tests above:: See clinical impression below. Admission Indicated Admission indicated?: indicated Admission Request Was there a request for admission?: Yes Admission Attestation Admission request attestation: Discussed case with [] from Hospitalist service regarding admission. Discussed patients ED course, exam findings, labs, and radiology results. The Hospitalist [agrees,declines] to accept the patient for admission. Disposition Plan Disposition Plan: Admit Critical Care Time Critical Care Time Critical Care Time: Yes Total Critical Care Time (min.): 120 Attestation: Due to a high probability of clinically significant, life threatening deterioration, the patient required my highest level of preparedness to intervene emergently and I personally spent this critical care time directly and personally managing the patient. This critical care time included obtaining a history; examining the patient; pulse oximetry; ordering and review of studies; arranging urgent treatment with development of a management plan; evaluation of patient's response to treatment; frequent reassessment; and, discussions with other providers. This critical care time was performed to assess and manage the high probability of imminent, life-threatening deterioration that could result in multi-organ failure. It was exclusive of separately billable procedures and treating other patients and teaching time. Please see MDM section and the rest of the note for further information on patient assessment and treatment. Discharge Plan Plan Patient Disposition: Admit Acute Care w/in Hospital Problem List Clinical Impression: Sepsis, Urinary tract infection, Acute dehydration Patient/Caregiver Discharge Instructions Other Activity Instructions:: Please follow up with your primary care physician within 3-5 days upon discharge Please follow up with mend worker within 7 days upon discharge Please follow up with nephrology within 7 days upon discharge Please follow up with nuerology within 7 days upon discharge Please continue taking thiamine 100mg once daily, sucralfate 1 gram 3 times a day, mirtazapine 7.5 mg daily, metoclopramide 5mg daily, and omeprazole 40mg twice a day Please continue taking multivitamin and pyridoxine once a day. Please continue advancing your diet to larger meals slowly and as tolerated and patient will require assistance with meals to encourage proper intake Please come back to the ER if symptoms persist or worsen.
--- NOTE | 2025-02-02 07:55 | XR_ITS ---
Examination: CT brain head without contrast. 2-D sagittal coronal reconstructions Date and time of exam:February 02, 2025, 0936 hrs. Indications: Onset altered mental status beginning one week ago CTDI: vol (mGy):52.7 DLP: (mGycm):1 the Technique: Multiple CT axial sections of the brain have been obtained, 5 mm slice thickness. Contrast has not been administered. 2-D sagittal, coronal reconstructions have been obtained Low dose protocols were performed. One or more of the following dose reduction techniques were used; automated exposure control, adjustment of the mA and/or KV according to patient size, use of iterative reconstruction technique. Findings: No significant ventricular enlargement. Intra-axial or extra-axial hemorrhage density is not seen. No mass effect or midline shift Basal cisterns are not remarkable. Fourth ventricle is midline. Cranial vault intact. Impression: Negative for acute hemorrhage, mass effect or midline shift Advise clinical correlation follow-up accordingly.
--- NOTE | 2025-02-02 07:59 | EKG_ITS ---
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
[2025-02-02 08:34] LABS: Basophils # (Auto) 0.1 Thou/mm3 (0.0-0.2); Basophils % (Auto) 0 % (0-2.5); Eosinophils # (Auto) 0.0 Thou/mm3 (0.0-0.5); Eosinophils % (Auto) 0 % (0-10); Hematocrit 51.7 % (41.0-53.0); Hemoglobin 18.4 g/dL (13.5-16.0); Immature Granulocytes Auto 0.46 Thou/mm3 (0.00-0.00); Lymphocytes # (Auto) 5.8 Thou/mm3 (1.0-4.8); Lymphocytes % (Auto) 24 % (10-50); Mean Corpuscular HGB Conc 35.6 g/dl (31.0-37.0); Mean Corpuscular Hemoglobin 31.3 pg (25.0-35.0); Mean Corpuscular Volume 88 fL (80-100); Monocytes # (Auto) 1.0 Thou/mm3 (0.0-0.8); Monocytes % (Auto) 4 % (0-12); Neutrophils # (Auto) 16.9 Thou/mm3 (1.8-7.7); Neutrophils % (Auto) 70 % (37-80); Nucleated Red Blood Cell # 0.02 Thou/mm3 (0.00-0.00); Nucleated Red Blood Cell % 0 /100 WBC (0); Platelet Count 321 Thou/mm3 (140-440); RDW Standard Deviation 43.2 fL (35.1-43.9); Red Blood Count 5.87 Miln/mm3 (4.50-5.90); White Blood Count 24.3 Thou/mm3 (3.8-10.6)
[2025-02-02] MEDS: levETIRAcetam INJ 100 MG/ML VIAL 5ML 1000 MG IVP (08:37)
[2025-02-02] MEDS: RINGERS LACTATED 1000 ML 1,000 ML 999 ML IV ×4 (08:44→17:02)
[2025-02-02 08:56] LABS: Ammonia 49 uMol/L (11-32)
[2025-02-02 09:00] LABS: Alanine Aminotransferase 217 U/L (10-49); Albumin, Serum 4.3 gm/dL (3.5-5.0); Albumin/Globulin Ratio 1.3 (1.2-2.2); Alkaline Phosphatase 64 U/L (46-116); Anion Gap 25 (7-16); Aspartate Amino Transferase 80 U/L (0-34); BUN/Creatinine Ratio 19 Ratio (12-20); Bilirubin,Total 0.9 mg/dL (0.3-1.2); Blood Urea Nitrogen 32 mg/dL (9-23); Calcium 9.8 mg/dL (8.3-10.6); Calcium (Corrected) 9.8 mg/dL (8.5-10.1); Chloride 100 mMol/L (98-107); Creatinine (Component) 1.7 mg/dL (0.6-1.3); Globulin 3.3 gm/dL (2.3-3.5); Glucose 191 mg/dL (74-106); Osmolality,Calculated 287 (275-295); Sodium 138 mMol/L (136-145); Total Protein 7.6 gm/dL (5.7-8.2); eGFR 50 See Note
[2025-02-02 09:02] LABS: Lactate (Lactic Acid) 10.8 mMol/L (0.4-2.0)
[2025-02-02 09:03] LABS: INR 1.4 (0.9-1.3); Prothrombin Time 14.6 Seconds (9.0-12.2)
[2025-02-02 09:05] LABS: Carbon Dioxide 12.9 mMol/L (20.0-31.0); Potassium 2.7 mMol/L (3.4-5.1)
[2025-02-02 09:06] LABS: Troponin I < 0.020 ng/mL (0.0-0.045)
[2025-02-02 09:27] LABS: T4 (Thyroxine) 13.6 mcg/dL (4.5-10.9)
[2025-02-02 09:28] LABS: Acetaminophen < 2.0 mcg/mL (10.0-20.0); Creatine Kinase 305 U/L (34-171); Procalcitonin 0.41 ng/ml (0.0-0.49); Salicylate < 3.0 mg/dL; Thyroid Stimulating Hormone 2.04 uIU/mL (0.55-4.78)
[2025-02-02] MEDS: POTASSIUM CHL 10 mEq IVPB 10 MEQ/100 ML BAG 100 MEQ IV ×4 (09:53→13:02)
[2025-02-02] MEDS: PIPER/TAZO INJ 4.5 GM in SODIUM CHLORIDE 0.9% (POP) 100 ML IV (09:55)
[2025-02-02 10:05] LABS: Influenza A Ag Negative; Influenza B Ag Negative
--- NOTE | 2025-02-02 10:18 | XR_ITS ---
Examination: Abdomen sonogram, Limited Date and time of exam: February 02, 2025, 11:45 AM Indications: Abdominal pain several months Technique: Real-time mosqueda scale transabdominal sonographic images of the upper abdomen obtained. Findings: Multiple gallstones Normal gallbladder wall Normal common bile duct 0.2 cm Pancreatic head 2.3 cm Liver 14.5 cm fatty infiltration no focal liver lesions Normal hepatopedal portal venous flow Patent IVC Impression: Cholelithiasis, negative for cholecystitis Normal common bile duct
[2025-02-02] MEDS: VANCOMYCIN/NS 1 GM IVPB 200 ML IV ×2 (10:57→21:30)
[2025-02-02] MEDS: RINGERS LACTATED 1000 ML 1,000 ML 125 ML IV ×2 (11:00→18:41)
[2025-02-02 11:54] LABS: Reflex Lactate? Y
[2025-02-02 12:52] LABS: Lactic Acid, 3 HR 6.2 mMol/L (0.4-2.0)
[2025-02-02 13:26] LABS: Collection Type, Urine Clean Catch
[2025-02-02 13:44] LABS: Bilirubin,Urine Negative (Negative); Blood,Urine 2+ (Negative); Clarity,Urine Turbid (Clear/Hazy); Color,Urine Yellow (Lt Yel-Yel); Culture Indicated,Urine Yes; Glucose, Urine Negative (Negative); Hyaline Casts,Urine 1 /hpf (0-1); Ketones,Urine Negative (Negative); Leukocyte Esterase,Urine Positive (Negative); Nitrite,Urine Negative (Negative); PH,Urine 5.5 (5.0-7.0); Protein,Urine 1+ (Neg - Trace); RBC,Urine 54 /hpf (0-3); Specific Gravity,Urine 1.028 (1.001-1.035); Squamous Epithelial Cell,Urine 1 /hpf (0-5); Urobilinogen,Urine Negative mg/dL (0.0-1.0); WBC,Urine 24 /hpf (0-5)
[2025-02-02 13:59] LABS: Amphetamine/Methamp Scrn,U Negative (Negative); Barbiturate Screen,Urine Negative (Negative); Benzodiazepines Screen,Urine Negative (Negative); Benzoylecgonine Screen, Ur Negative (Negative); Fentanyl Screen,Urine Negative (Negative); Opiate Screen,Urine Negative (Negative); THC Screen,Urine Negative (Negative)
[2025-02-02 14:09] LABS: Alanine Aminotransferase 179 U/L (10-49); Albumin, Serum 3.6 gm/dL (3.5-5.0); Albumin/Globulin Ratio 1.3 (1.2-2.2); Alkaline Phosphatase 53 U/L (46-116); Anion Gap 19 (7-16); Aspartate Amino Transferase 79 U/L (0-34); BUN/Creatinine Ratio 15 Ratio (12-20); Bilirubin,Total 0.9 mg/dL (0.3-1.2); Blood Urea Nitrogen 18 mg/dL (9-23); Calcium 8.9 mg/dL (8.3-10.6); Calcium (Corrected) 9.2 mg/dL (8.5-10.1); Chloride 104 mMol/L (98-107); Creatinine (Component) 1.2 mg/dL (0.6-1.3); Estimated Creatinine Clearance 97.7 mL/min (>60); Globulin 2.8 gm/dL (2.3-3.5); Glucose 110 mg/dL (74-106); Osmolality,Calculated 276 (275-295); Potassium 3.6 mMol/L (3.4-5.1); Sodium 137 mMol/L (136-145); Total Protein 6.4 gm/dL (5.7-8.2); eGFR > 60 See Note
[2025-02-02 14:13] LABS: Carbon Dioxide 14.4 mMol/L (20.0-31.0)
--- NOTE | 2025-02-02 15:37 | ESHP_ITS ---
<Statement entered by Panfilo Crane MD - 02/03/25 07:59> Patient examined and case discussed with the team including attending physician. Note reviewed, I agree with the care plan as documented. Please refer to the note below for further details. - Panfilo Crane MD, PGY 3 Disclaimer: The document may contain phonetic/typographic errors due to voice recognition software. These errors are purely due to imperfections in the software program. 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 The patient is altered and unable to provide a thorough history. He was tachycardic on arrival and was found to have a lactic acid of 10.8 and a leukocytosis of 24.3. Patient was admitted for severe sepsis. ED course: * Vitals on arrival showed a BP of 106/86, pulse 142, respiratory rate 18, temp 96.8, satting 98% on room air. * Notable labs: WBC 24.3, hemoglobin 18.4, PT 14.6, INR 1.4, bicarb 12.9, potassium 2.7, bicarb 12.9, anion gap 25, BUN 32, creatinine 1.7 lactic acid 10.8, AST 80, ALT 217, ammonia 49, thyroxine 13.6. Urine significant for 2+ blood, RBC 54, white blood cells 24. * Imaging: CT of the head negative for acute hemorrhage. EKG showed sinus tachycardia with a rate of 141, QTc 518. Abdominal ultrasound showed cholelithiasis, negative for cholecystitis, there was a normal common bile duct. CT abdomen pelvis showed bilateral nonobstructing renal calculi with no hydronephrosis or ureteral calculi. * In the ED the patient received 1 g of Keppra, 4 L of LR as a bolus each, Zosyn, and vancomycin. History (obtained from chart review and patient's mother): * Past medical history: Hypertension, GERD, allergies, asthma, hypercholesterolemia, childhood epilepsy * Family history: Hypertension in mother and father * Surgical history: Tonsillectomy, adenoidectomy * Social history: Lives with mother, mother denies that the patient drinks smokes or uses illicit drugs. * Allergies: No known drug allergies * Home medications: Atorvastatin 40 mg p.o. daily, fluticasone nasal spray, ipratropium bromide, montelukast 10 mg p.o. daily, omeprazole 40 mg p.o. daily, ondansetron 4 mg p.o. every 8 hours as needed Review of Systems Review of Systems Narrative Review of Systems: Review of Systems: * General: Weakness over the past 2 days. * HEENT: Denies headache, congestion, or sore throat. * Cardiac: Denies chest pain or palpitations. * Pulmonary: Denies shortness of breath or cough. * GI: Denies nausea, vomiting, diarrhea, constipation, melena, or hematochezia. * : Denies dysuria, hematuria, frequency, or urgency. * MSK: Denies pain in the extremities, joints, or myalgias. * Neuro: Denies weakness, numbness, vision changes, or speech difficulty. Exam Vital Signs Temp Pulse Resp BP Pulse Ox O2 Del Method 97.9 F 112 H 16 115/88 H 98 Room Air 02/02/25 12:46 02/02/25 12:46 02/02/25 12:46 02/02/25 12:46 02/02/25 12:46 02/02/25 12:46 Narrative Exam General: Obese man. Altered, giving one-word answers. Increased work of breathing. Neurologic: No gross neurological deficit, and patient able to move all 4 extremities. HEENT: Normocephalic, atraumatic, mucous membranes moist. Pupils reactive to light. Heart: Tachycardic, regular rhythm, normal S1 and S2, no murmurs. Lungs: Clear to auscultation bilaterally with no wheezing or crackles. Abdomen: Soft, nondistended, nontender, positive bowel sounds. No guarding or rebound tenderness. Extremities: No edema. 2+ radial and dorsalis pedis pulses bilaterally. Skin: Warm. Dry. No rash or ecchymoses. Results: Labs 02/04/25 05:53 02/04/25 05:53 Labs: Short CBC 02/02/25 Range/Units 08:14 WBC 24.3 H (3.8-10.6) Thou/mm3 Hgb 18.4 H* (13.5-16.0) g/dL Hct 51.7 (41.0-53.0) % Plt Count 321 D (140-440) Thou/mm3 BMP 02/02/25 02/02/25 08:14 12:43 Sodium 138 137 Potassium 2.7 L* 3.6 D Chloride 100 104 Carbon Dioxide 12.9 L* 14.4 L* BUN 32 H 18 Creatinine 1.7 H 1.2 D Glucose 191 H 110 H D Calcium 9.8 8.9 Cardiac Enzymes 02/02/25 Range/Units 08:14 Total Creatine Kinase 305 H (34-171) U/L Troponin I < 0.020 (0.0-0.045) ng/mL Liver Function 02/02/25 02/02/25 Range/Units 08:14 12:43 Total Bilirubin 0.9 0.9 (0.3-1.2) mg/dL AST 80 H 79 H (0-34) U/L ALT 217 H 179 H (10-49) U/L Alkaline Phosphatase 64 53 (46-116) U/L Albumin 4.3 3.6 D (3.5-5.0) gm/dL Urine 02/02/25 Range/Units 13:19 Urine Color Yellow (Lt Yel-Yel) Urine Clarity Turbid A (Clear/Hazy) Urine pH 5.5 (5.0-7.0) Ur Specific Force 1.028 (1.001-1.035) Urine Protein 1+ A (Neg - Trace) Urine Glucose (UA) Negative (Negative) Quality Measures Quality Measures none Medications Home Medications and Allergies Home Medications ?Medication ?Instructions ?Recorded ?Confirmed ?Type atorvastatin 20 mg tablet 40 mg PO DAILY 12/19/2401/08 History fluticasone propionate 50 2 spray intranasal DAILY 02/03/25 History mcg/actuation nasal spray,suspension ipratropium bromide 42 mcg (0.06 2 spray intranasal BI D 12/19/24 02/03/25 History %) nasal spray montelukast 10 mg tablet 10 mg PO DAILY 12/19/2401/08 History omeprazole 40 mg capsule,delayed 40 mg PO DAILY 02/03/25 History release Allergies Allergy/AdvReac Type Severity Reaction Status Date / Time No Known Allergies Allergy Verified 02/02/25 08:14 Visit Medications Acetaminophen (Acetaminophen 325 Mg Tablet) 650 mg PO Q6H PRN PRN Reason: Fever >101.5 Stop: 03/04/25 15:11 Enoxaparin Sodium (Enoxaparin Sod Inj 40 Mg/0.4 Ml Syringe) 40 mg SC QDAY [facility] Stop: 02/16/25 15:29 Lactated Ringer's (Lactated Ringers) 1,000 mls @ 125 mls/hr IV .Q8H ROBBIE Stop: 03/04/25 10:18 Last Admin: 02/02/25 11:00 Dose: 125 mls/hr Vancomycin/Sodium Chloride (Vancomycin/Ns 1 Gm Ivpb) 200 mls @ 120 mls/hr IV X1 ONE Stop: 02/02/25 23:39 Lactated Ringer's (Lactated Ringers) 1,000 mls @ 999 mls/hr IV .Q1H1M ONE Stop: 02/02/25 16:26 Ondansetron HCl (Ondansetron Inj 2 Mg/Ml Inj 2 Ml) 4 mg IVP Q6H PRN; Protocol PRN Reason: NAUSEA OR VOMITING Stop: 03/04/25 15:16 Pantoprazole Sodium (Pantoprazole Inj 40 Mg Vial) 40 mg IVP Q12HR [facility] Stop: 03/04/25 20:59 Pharmacy Consult (Vancomycin Pharmacy To Dose 1 Each Each) 1 each IV QDAY PRN PRN Reason: CONSULT Stop: 03/04/25 09:44 Discontinued Medications Lactated Ringer's (Lactated Ringers) 1,000 mls @ 999 mls/hr IV .Q1H1M ONE Stop: 02/02/25 09:20 Last Infusion: 02/02/25 10:00 Dose: Infused Lactated Ringer's (Lactated Ringers) 1,000 mls @ 999 mls/hr IV .Q1H1M ONE Stop: 02/02/25 10:04 Last Infusion: 02/02/25 10:59 Dose: Infused Ceftriaxone Sodium/Dextrose (Rocephin/D5w 1gm Iv Premix) 1 gm in 50 mls @ 100 mls/hr IV X1 ONE Stop: 02/02/25 09:33 Last Admin: 02/02/25 09:44 Dose: Not Given Potassium Chloride (Kcl Ivpb) 10 meq in 100 mls @ 100 mls/hr IV Q1H ROBBIE Stop: 02/02/25 13:04 Last Infusion: 02/02/25 14:04 Dose: Infused Piperacillin Sod/Tazobactam (Sod 4.5 gm/ Sodium Chloride) 100 mls @ 200 mls/hr IV X1 ONE; Protocol Stop: 02/02/25 10:12 Last Infusion: 02/02/25 10:59 Dose: Infused Vancomycin/Sodium Chloride (Vancomycin/Ns 1 Gm Ivpb) 200 mls @ 120 mls/hr IV X1 ONE Stop: 02/02/25 11:24 Last Infusion: 02/02/25 12:38 Dose: Infused Lactated Ringer's (Lactated Ringers) 1,000 mls @ 999 mls/hr IV .Q1H1M ONE Stop: 02/02/25 12:55 Last Infusion: 02/02/25 14:05 Dose: Infused Levetiracetam (Levetiracetam Inj 100 Mg/Ml Vial 5ml) 1,000 mg IVP X1 ONE Stop: 02/02/25 07:54 Last Admin: 02/02/25 08:37 Dose: 1,000 mg Potassium Chloride (Potassium Chloride 20 Meq Tabcr) 40 meq PO X1 ONE Stop: 02/02/25 09:05 Last Admin: 02/02/25 09:57 Dose: 40 meq Assessment & Plan Plan Summary: Logan Dye is a 44-year-old male with a past medical history of hypertension, GERD, allergies, asthma, hypercholesterolemia, 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 He was admitted for severe sepsis. #Acute encephalopathy secondary to #Severe sepsis secondary to #UTI versus #Acute anion gap metabolic acidosis versus #Hepatic encephalopathy. #Lactic acidosis #Leukocytosis * Patient presented with altered mental status, was unable to give a history but was able to deny or admit symptoms for a review of systems * Patient meets severe sepsis criteria with tachycardia and leukocytosis in addition to lactic acid of 10.8, which is evidence of end organ damage due to hypoperfusion * Patient denied dysuria, urine positive for 1+ protein, 2+ blood, 54 RBC, 24 white blood cells, leukocyte esterase positive * Patient presented with an anion gap of 25 and appears to be compensating in a respiratory manner appropriate for metabolic acidosis, as VBG showed a pH of 7.55 and a pCO2 of 25 * CT abdomen pelvis was negative for hydronephrosis or ureteral calculi * Source of infection is not identified at this point Plan: * Cefepime 2 g IV every 8 hours, vancomycin * Maintenance LR at 125/h, fluid boluses received in the ER 4 L * Trending lactic acid every 6 hours, initially downtrended * Blood and urine cultures pending * Should the patient spike a fever, cultures return negative, or condition deteriorates, then this may raise suspicion for [employer] etiology. At that point, consider neurology consult and possible lumbar puncture #Transaminitis #Hyperammonemia #Elevated PT #Elevated INR * Ammonia 49, AST 79, ALT 179, PT 14.6, INR 1.4 * Abdominal ultrasound negative for cholelithiasis or cholecystitis * Patient does not have right upper quadrant pain or any of Charcot's triad * Though the patient has hyperammonemia, this is unlikely the cause of his altered mental status due to other stronger-supporting etiologies such as urine results * Elevated PT and INR may reflect liver's inability to produce clotting factors * Besides atorvastatin, the patient is not taking any medications that are overly taxing on the liver * Patient does not drink alcohol * No clear explanation for transaminitis, hyperammonemia, elevated PT and elevated INR at this time, though liver etiology may be considered as a culprit to the patient's acute altered mental status Plan: * Lactulose 30 mg x 1 * Monitor ammonia level * Repeat PT, INR, and PTT #Hyperthyroidism * Thyroxine 13.6 * Consider acute phase thyrotoxicosis reaction heavier than underlying thyroid condition Plan: * Will repeat thyroxine #Hyperglycemia * Fingerstick glucose 237 on arrival * Per patient's mother, he does not have a history of diabetes Plan: * A1c pending * Insulin sliding scale #GERD * Per history taken from the patient's mother Plan: * Pantoprazole 40 mg IV daily #Hypercholesterolemia * Per history taken from patient's mother * Patient takes atorvastatin 40 mg p.o. daily at home Plan: * Hold in the presence of transaminitis #Asthma * Per patient history gathered from patient's mother * Patient montelukast 10 mg p.o. daily Plan: * Pending med rec, consider restarting home bradykinin inhibitor montelukast Hospital Maintenance: DVT ppx: SCDs, No chemical prophylaxis in the presence of elevated PT and INR. GI ppx: Pantoprazole 40 mg IV daily Diet: Regular diet IV lines: Peripheral IVs Code status: Full code Dispo: Patient admitted for severe sepsis secondary to suspected UTI. Started on cefepime and vancomycin. Trending lactic acid and continuing maintenance fluids. Blood and urine cultures pending. Patient was seen and discussed with my attending physician Dr. Giovanny SALINAS and my senior resident Dr. Rosa Maria SALINAS PGY-3. Alan Bernabe DO PGY-1. Attending Provider Attestation/Addendum I attest that I was physically present for the evaluation, physical examination, lab and imaging review of the patient with the residents. I discussed the case with the residents and agree with the findings and plans of care as documented above. After examination of the patient and review of the clinical data I feel that this patient needs admission to the hospital for further treatment/evaluation Javier Baltazar MD
[2025-02-02 16:25] LABS: Base Excess, Venous 1 (-3-3); O2 Saturation, Venous 99 % (96-97); PCO2, Venous 25 mmHg (36-56); PO2, Venous 113 mmHg (15-58); pH, Venous 7.55 (7.33-7.66)
[2025-02-02] MEDS: cefTRIAXone 2 GM in SODIUM CHLORIDE 0.9% (Popper) 50 ML IV (17:03)
--- NOTE | 2025-02-02 17:23 | XR_ITS ---
Examination: CT abdomen and pelvis without contrast. Coronal 3-D reconstructions. Sagittal 2-D reconstructions. Date and time of exam:February 02, 2025, 1748 hrs. Indications: Generalized abdominal pain today, history kidney stones Comparison: 01/10/2025 CTDI: vol (mGy): 15.8 DLP: (mGycm): 1008 Technique: Axial images of the abdomen have been obtained, 3 mm slice thickness Intravenous contrast material has not been administered. Low dose protocols were performed. One or more of the following dose reduction techniques were used; automated exposure control, adjustment of the mA and/or KV according to patient size, use of iterative reconstruction technique. Findings: No visualized liver or splenic lesion No gallstones No pancreatic or adrenal mass 5 mm right renal calculus 3 mm lower pole 1 mm midpole left renal calculi No hydronephrosis or ureteral calculi Aorta normal size Normal appendix Mildly fluid distended colon No bladder mass or bladder calculi No prostatomegaly Impression: Bilateral nonobstructing renal calculi, no hydronephrosis or ureteral calculi No bladder mass or bladder calculi. Normal appendix
[2025-02-02] MEDS: CEFEPIME INJ 2 GM in SODIUM CHLORIDE 0.9% (Popper) 50 ML IV (17:33)
[2025-02-02 18:41] LABS: Lactate (Lactic Acid) 3.8 mMol/L (0.4-2.0)
[2025-02-02] MEDS: LACTULOSE SYRUP 20 GM/30 ML UDC 30 GM PO (18:41)
[2025-02-02 19:07] LABS: Albumin, Serum 3.5 gm/dL (3.5-5.0); Anion Gap 13 (7-16); BUN/Creatinine Ratio 23 Ratio (12-20); Blood Urea Nitrogen 23 mg/dL (9-23); Calcium 8.5 mg/dL (8.3-10.6); Calcium (Corrected) 8.9 mg/dL (8.5-10.1); Carbon Dioxide 21.4 mMol/L (20.0-31.0); Chloride 106 mMol/L (98-107); Creatinine (Component) 1.0 mg/dL (0.6-1.3); Estimated Creatinine Clearance 117.3 mL/min (>60); Glucose 111 mg/dL (74-106); Osmolality,Calculated 284 (275-295); Phosphorous 2.7 mg/dL (2.4-5.1); Potassium 3.2 mMol/L (3.4-5.1); Sodium 140 mMol/L (136-145); eGFR > 60 See Note
[2025-02-02] MEDS: ACETAMINOPHEN IVPB 1,000 MG/100 ML VIAL 250 MG IV (21:28)
[2025-02-02 21:38] LABS: Reflex Lactate? Y
[2025-02-02 22:02] LABS: Lactic Acid, 3 HR 2.6 mMol/L (0.4-2.0)
[2025-02-03] VITALS (7 sets, daily range): BP systolic 114–141; BP diastolic 81–93; PULSE 109–114; RESP 13–23; TEMP 36–36.2; O2SAT 93–100; BMI 43.4
[2025-02-03 00:03] LABS: Lactate (Lactic Acid) 3.2 mMol/L (0.4-2.0)
[2025-02-03 01:29] LABS: Albumin, Serum 2.9 gm/dL (3.5-5.0); Anion Gap 11 (7-16); BUN/Creatinine Ratio 19 Ratio (12-20); Blood Urea Nitrogen 19 mg/dL (9-23); Calcium 8.3 mg/dL (8.3-10.6); Calcium (Corrected) 9.2 mg/dL (8.5-10.1); Carbon Dioxide 22.8 mMol/L (20.0-31.0); Chloride 109 mMol/L (98-107); Creatinine (Component) 1.0 mg/dL (0.6-1.3); Estimated Creatinine Clearance 117.3 mL/min (>60); Glucose 109 mg/dL (74-106); Osmolality,Calculated 288 (275-295); Phosphorous 2.0 mg/dL (2.4-5.1); Potassium 3.5 mMol/L (3.4-5.1); Sodium 143 mMol/L (136-145); eGFR > 60 See Note
[2025-02-03] MEDS: RINGERS LACTATED 1000 ML 1,000 ML 125 ML IV ×2 (01:43→09:22)
[2025-02-03 03:02] LABS: Reflex Lactate? Y
[2025-02-03] MEDS: CEFEPIME INJ 2 GM in SODIUM CHLORIDE 0.9% (Popper) 50 ML IV ×3 (05:02→21:15)
[2025-02-03 05:14] LABS: Lactate (Lactic Acid) 2.9 mMol/L (0.4-2.0)
[2025-02-03 05:33] LABS: Basophils # (Auto) 0.1 Thou/mm3 (0.0-0.2); Basophils % (Auto) 1 % (0-2.5); Eosinophils # (Auto) 0.2 Thou/mm3 (0.0-0.5); Eosinophils % (Auto) 1 % (0-10); Hematocrit 39.1 % (41.0-53.0); Hemoglobin 13.6 g/dL (13.5-16.0); Immature Granulocytes Auto 0.11 Thou/mm3 (0.00-0.00); Lymphocytes # (Auto) 3.3 Thou/mm3 (1.0-4.8); Lymphocytes % (Auto) 19 % (10-50); Mean Corpuscular HGB Conc 34.8 g/dl (31.0-37.0); Mean Corpuscular Hemoglobin 31.5 pg (25.0-35.0); Mean Corpuscular Volume 91 fL (80-100); Monocytes # (Auto) 0.6 Thou/mm3 (0.0-0.8); Monocytes % (Auto) 4 % (0-12); Neutrophils # (Auto) 13.3 Thou/mm3 (1.8-7.7); Neutrophils % (Auto) 76 % (37-80); Nucleated Red Blood Cell # 0.00 Thou/mm3 (0.00-0.00); Nucleated Red Blood Cell % 0 /100 WBC (0); Platelet Count 208 Thou/mm3 (140-440); RDW Standard Deviation 45.1 fL (35.1-43.9); Red Blood Count 4.32 Miln/mm3 (4.50-5.90); White Blood Count 17.5 Thou/mm3 (3.8-10.6)
[2025-02-03 05:39] LABS: Ammonia 13 uMol/L (11-32)
[2025-02-03 05:42] LABS: INR 1.3 (0.9-1.3); Partial Thromboplastin Time 23.4 Seconds (22.0-36.0); Prothrombin Time 13.9 Seconds (9.0-12.2)
[2025-02-03 05:43] LABS: Glucose Estimated Average 123 mg/dL (80-131); Hemoglobin A1C 5.9 % Hgb (4.8-6.0)
[2025-02-03 05:45] LABS: Albumin, Serum 3.1 gm/dL (3.5-5.0); Anion Gap 12 (7-16); BUN/Creatinine Ratio 24 Ratio (12-20); Blood Urea Nitrogen 22 mg/dL (9-23); Calcium 8.6 mg/dL (8.3-10.6); Calcium (Corrected) 9.3 mg/dL (8.5-10.1); Carbon Dioxide 25.3 mMol/L (20.0-31.0); Cardiac Risk Estimate 5.1 RATIO (4.0-6.7); Chloride 109 mMol/L (98-107); Cholesterol 122 mg/dL (132-200); Creatinine (Component) 0.9 mg/dL (0.6-1.3); Estimated Creatinine Clearance 127.6 mL/min (>60); Free T4 (Free Thyroxine) 1.18 ng/dL (0.89-1.76); Glucose 100 mg/dL (74-106); HDL Cholesterol 24 mg/dL (40-60); LDL Cholesterol,Calculated 73 mg/dL (0-130); Magnesium 2.0 mg/dL (1.6-2.6); Osmolality,Calculated 293 (275-295); Phosphorous 1.8 mg/dL (2.4-5.1); Potassium 3.3 mMol/L (3.4-5.1); Sodium 146 mMol/L (136-145); Triglycerides 126 mg/dL (30-150); eGFR > 60 See Note
[2025-02-03 08:14] LABS: Reflex Lactate? Y
[2025-02-03 09:15] LABS: Lactic Acid, 3 HR 3.3 mMol/L (0.4-2.0)
[2025-02-03] MEDS: VANCOMYCIN/NS 1 GM IVPB 200 ML IV ×2 (09:22→14:02)
[2025-02-03] MEDS: POTASSIUM PHOS 22.5 MMOL in SODIUM CHLORIDE 0.9% 500 ML 500 ML 82.778 MMOL IV (10:21)
[2025-02-03] MEDS: RINGERS LACTATED 1000 ML 500 ML 125 ML IV (10:31)
[2025-02-03] MEDS: RINGERS LACTATED 1000 ML 500 ML 999 ML IV (10:31)
--- NOTE | 2025-02-03 12:33 | PC.SS ---
Logan Dye is a 44 year-old male admitted to [facility] for UTI. SS conducted bedside contact with the patient to complete initial assessment and to discuss discharge planning. Role and reason explained. Patient confirmed demographic information. Patient identifies his mother Thomas Dye [phone] as his surrogate decision maker. Pt states he is able to complete all ADL?s independent. Pt does not possess any DME although, stated he could use a cane. Pts PCP is Abdiel Esparza. [facility] choice [facility]. Discharge options discussed and the pt wishes to return home.? Pt mom will provide transport. No further intervention required at this time, mental health social worker would be available to address any further concerns. DC Plan: Home Contact: Mother-Thomas Address: Confirmed on face sheet PCP: Isaias
[2025-02-03 13:48] LABS: Lactate (Lactic Acid) 4.1 mMol/L (0.4-2.0)
--- NOTE | 2025-02-03 13:58 | ESPR_ITS ---
<Statement entered by Panfilo Crane MD - 02/03/25 19:51> Patient examined and case discussed with the team including attending physician. Note reviewed, I agree with the care plan as documented. Please refer to the note below for further details. - Panfilo Crane MD, PGY 3 Disclaimer: The document may contain phonetic/typographic errors due to voice recognition software. These errors are purely due to imperfections in the software program. Documentation for date of: 02/03/25 Subjective Subjective Interval history: Patient seen and examined at bedside. CT abdomen pelvis was positive for bilateral nonobstructing renal calculi with no hydronephrosis.? Abdominal ultrasound showed cholelithiasis but was negative for cholecystitis.? Leukocytosis has trended down from 24 to 17.? PT slightly elevated this morning, INR and PTT normal. ?Ammonia 13 down from 49. Sodium 143 potassium 3.3, anion gap resolved, lactic acid 2.9 down from 10.8 however increased to 3.3 and then 4.1. Phos 1.8.? Lipid panel was normal minus an HDL of 24.? Repeat free thyroxine was 1.18.? Urine and blood culture pending.? Vitals significant for tachycardia. Patient's mentation is still not back to baseline, neurology consulted. Exam Vital Signs Temp Pulse Resp BP Pulse Ox O2 Del Method 97.1 F 110 H 21 H 114/81 100 Room Air 02/03/25 12:00 02/03/25 12:00 02/03/25 12:00 02/03/25 12:00 02/03/25 12:00 02/03/25 12:00 Narrative Exam General: Obese man. Altered, disoriented to place and time, oriented to self. Neurologic: No gross neurological deficit, and patient able to move all 4 extremities. HEENT: Normocephalic, atraumatic, mucous membranes moist. Pupils reactive to light. Heart: Tachycardic, regular rhythm, normal S1 and S2, no murmurs. Lungs: Clear to auscultation bilaterally with no wheezing or crackles. Abdomen: Soft, nondistended, nontender, positive bowel sounds. No guarding or rebound tenderness. Extremities: No edema. 2+ radial and dorsalis pedis pulses bilaterally. Skin: Warm. Dry. No rash or ecchymoses. Objective Labs 02/04/25 05:53 02/04/25 05:53 Labs: Laboratory Results - last 24 hr 02/02/25 02/02/25 02/02/25 12:43 13:19 16:10 WBC RBC Hgb Hct MCV MCH MCHC RDW Std Deviation Plt Count Neut % (Auto) Lymph % (Auto) [place] % (Auto) Eos % (Auto) Baso % (Auto) Neut # (Auto) Lymph # (Auto) [place] # (Auto) Eos # (Auto) Baso # (Auto) Immature Gran # (Auto) Absolute Nucleated RBC Immature Gran % Nucleated RBC % PT INR APTT VBG pH 7.55 VBG pCO2 25 L VBG pO2 113 H VBG O2 Sat (Barb) 99 H VBG Base Excess 1 Sodium 137 Potassium 3.6 D Chloride 104 Carbon Dioxide 14.4 L* Anion Gap 19 H BUN 18 Creatinine 1.2 D Estim Creat Clear Calc 97.7 eGFR > 60 BUN/Creatinine Ratio 15 [address]ucose [address] Glu mg/dL Hemoglobin A1c Calculated Osmolality 276 Lactic Acid Cancelled Calcium 8.9 Corrected Calcium 9.2 Phosphorus Magnesium Total Bilirubin 0.9 AST 79 H ALT 179 H Alkaline Phosphatase 53 Ammonia Total Protein 6.4 Albumin 3.6 D Globulin 2.8 Albumin/Globulin Ratio 1.3 Triglycerides Cholesterol LDL Cholesterol, Calc HDL Cholesterol Cholesterol/HDL Ratio Free T4 Urine Opiates Screen Negative Urine Fentanyl Screen Negative Ur Barbiturates Screen Negative U Amphetamin/Meth Scrn Negative U Benzodiazepines Scrn Negative U Cocaine Metab Screen Negative U Marijuana (THC) Screen Negative 02/02/25 02/02/25 02/02/25 18:36 21:56 23:58 WBC RBC Hgb Hct MCV MCH MCHC RDW Std Deviation Plt Count Neut % (Auto) Lymph % (Auto) [place] % (Auto) Eos % (Auto) Baso % (Auto) Neut # (Auto) Lymph # (Auto) [place] # (Auto) Eos # (Auto) Baso # (Auto) Immature Gran # (Auto) Absolute Nucleated RBC Immature Gran % Nucleated RBC % PT INR APTT VBG pH VBG pCO2 VBG pO2 VBG O2 Sat (Barb) VBG Base Excess Sodium 140 Potassium 3.2 L Chloride 106 Carbon Dioxide 21.4 Anion Gap 13 BUN 23 Creatinine 1.0 Estim Creat Clear Calc 117.3 eGFR > 60 BUN/Creatinine Ratio 23 H Glucose [address] Glu mg/dL Hemoglobin A1c Calculated Osmolality 284 Lactic Acid 3.8 H 2.6 H 3.2 H Calcium 8.5 Corrected Calcium 8.9 Phosphorus 2.7 Magnesium Total Bilirubin AST ALT Alkaline Phosphatase Ammonia Total Protein Albumin 3.5 Globulin Albumin/Globulin Ratio Triglycerides Cholesterol LDL Cholesterol, Calc HDL Cholesterol Cholesterol/HDL Ratio Free T4 Urine Opiates Screen Urine Fentanyl Screen Ur Barbiturates Screen U Amphetamin/Meth Scrn U Benzodiazepines Scrn U Cocaine Metab Screen U Marijuana (THC) Screen 02/03/25 02/03/25 02/03/25 00:59 04:45 05:10 WBC 17.5 H D RBC 4.32 L Hgb 13.6 D Hct 39.1 L D MCV 91 MCH 31.5 MCHC 34.8 RDW Std Deviation 45.1 H Plt Count 208 D Neut % (Auto) 76 Lymph % (Auto) 19 [place] % (Auto) 4 Eos % (Auto) 1 Baso % (Auto) 1 Neut # (Auto) 13.3 H Lymph # (Auto) 3.3 [place] # (Auto) 0.6 Eos # (Auto) 0.2 Baso # (Auto) 0.1 Immature Gran # (Auto) 0.11 H Absolute Nucleated RBC 0.00 Immature Gran % 1 H Nucleated RBC % 0 PT 13.9 H INR 1.3 APTT 23.4 VBG pH VBG pCO2 VBG pO2 VBG O2 Sat (Barb) VBG Base Excess Sodium 143 146 H Potassium 3.5 3.3 L Chloride 109 H 109 H Carbon Dioxide 22.8 25.3 Anion Gap 11 12 BUN 19 22 Creatinine 1.0 0.9 Estim Creat Clear Calc 117.3 127.6 eGFR > 60 > 60 BUN/Creatinine Ratio 19 24 H Glucose [address] Glu mg/dL 123 Hemoglobin A1c 5.9 Calculated Osmolality 288 293 Lactic Acid 2.9 H Calcium 8.3 8.6 Corrected Calcium 9.2 9.3 Phosphorus 2.0 L 1.8 L Magnesium 2.0 Total Bilirubin AST ALT Alkaline Phosphatase Ammonia 13 Total Protein Albumin 2.9 L D 3.1 L Globulin Albumin/Globulin Ratio Triglycerides 126 Cholesterol 122 L LDL Cholesterol, Calc 73 HDL Cholesterol 24 L Cholesterol/HDL Ratio 5.1 Free T4 1.18 Urine Opiates Screen Urine Fentanyl Screen Ur Barbiturates Screen U Amphetamin/Meth Scrn U Benzodiazepines Scrn U Cocaine Metab Screen U Marijuana (THC) Screen 02/03/25 02/03/25 08:55 13:30 WBC RBC Hgb Hct MCV MCH MCHC RDW Std Deviation Plt Count Neut % (Auto) Lymph % (Auto) [place] % (Auto) Eos % (Auto) Baso % (Auto) Neut # (Auto) Lymph # (Auto) [place] # (Auto) Eos # (Auto) Baso # (Auto) Immature Gran # (Auto) Absolute Nucleated RBC Immature Gran % Nucleated RBC % PT INR APTT VBG pH VBG pCO2 VBG pO2 VBG O2 Sat (Barb) VBG Base Excess Sodium Potassium Chloride Carbon Dioxide Anion Gap BUN Creatinine Estim Creat Clear Calc eGFR BUN/Creatinine Ratio Glucose Estimated Ave Glu mg/dL Hemoglobin A1c Calculated Osmolality Lactic Acid 3.3 H 4.1 H* Calcium Corrected Calcium Phosphorus Magnesium Total Bilirubin AST ALT Alkaline Phosphatase Ammonia Total Protein Albumin Globulin Albumin/Globulin Ratio Triglycerides Cholesterol LDL Cholesterol, Calc HDL Cholesterol Cholesterol/HDL Ratio Free T4 Urine Opiates Screen Urine Fentanyl Screen Ur Barbiturates Screen U Amphetamin/Meth Scrn U Benzodiazepines Scrn U Cocaine Metab Screen U Marijuana (THC) Screen ABG Interpretation ABG results: 02/02/25 16:10 VBG pH 7.55 VBG pCO2 25 L VBG pO2 113 H VBG Base Excess 1 Quality Measures Quality Measures none Assessment & Plan Assessment Current Active Medications: Generic Name Dose Route Start Last Admin Trade Name Freq PRN Reason Stop Dose Admin Acetaminophen 650 mg 02/02/25 16:12 Acetaminophen 325 Mg Tablet PO 03/04/25 15:11 Q6H PRN Fever >99.9 Dextrose 50 ml 02/02/25 17:28 Dextrose 50%-Water Inj 50 Ml Syringe IV 03/04/25 17:27 Q15MIN PRN BG <50 OR BG <70 & pt unresponsive Glucagon 1 mg 02/02/25 17:28 Glucagon Inj 1 Mg Vial IM Q15MIN PRN BG <70, and no IV access Cefepime HCl 2 gm/ Sodium 50 mls @ 100 mls/hr 02/02/25 17:17 02/03/25 13:19 Chloride IV 02/09/25 17:16 100 mls/hr Q8HR ROBBIE Administration Vancomycin/Sodium Chloride 200 mls @ 120 mls/hr 02/03/25 09:00 02/03/25 09:22 Vancomycin/Ns 1 Gm Ivpb IV 02/10/25 08:59 120 mls/hr Q8HR ROBBIE Administration Protocol Potassium Phosphate 22.5 mmol/ 507.5 mls @ 82.778 mls/hr 02/03/25 09:16 02/03/25 10:21 Sodium Chloride IV 02/03/25 15:23 82.778 mls/hr X1 ONE Administration Lactated Ringer's 500 mls @ 125 mls/hr 02/03/25 11:00 02/03/25 10:31 Lactated Ringers IV 02/03/25 14:59 125 mls/hr .Q4H ONE Administration Insulin Human Lispro 0 unit 02/03/25 07:30 02/03/25 11:19 Insulin Lispro (Admelog) 1 Unit/0.01 Ml Unit SC 03/05/25 07:29 Not Given AC ROBBIE Protocol Ondansetron HCl 4 mg 02/02/25 15:17 Ondansetron Inj 2 Mg/Ml Inj 2 Ml IVP 03/04/25 15:16 Q6H PRN NAUSEA OR VOMITING Protocol Pantoprazole Sodium 40 mg 02/03/25 09:00 02/03/25 09:25 Pantoprazole Inj 40 Mg Vial IVP 03/05/25 08:59 40 mg QDAY ROBBIE Administration Pharmacy Consult 1 each 02/02/25 09:45 Vancomycin Pharmacy To Dose 1 Each Each IV 03/04/25 09:44 QDAY PRN CONSULT Plan Summary: Logan Dye is a 44-year-old male with a past medical history of hypertension, GERD, allergies, asthma, hypercholesterolemia, 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 He was admitted for severe sepsis. #Acute encephalopathy secondary to #Severe sepsis secondary to #UTI versus #Acute anion gap metabolic acidosis versus #Lactic acidosis #Leukocytosis * Patient presented with altered mental status, was unable to give a history but was able to deny or admit symptoms for a review of systems * Patient meets severe sepsis criteria with tachycardia and leukocytosis in addition to lactic acid of 10.8, which is evidence of end organ damage due to hypoperfusion * Patient denied dysuria, urine positive for 1+ protein, 2+ blood, 54 RBC, 24 white blood cells, leukocyte esterase positive * Patient presented with an anion gap of 25 and appears to be compensating in a respiratory manner appropriate for metabolic acidosis, as VBG showed a pH of 7.55 and a pCO2 of 25 * CT abdomen pelvis was negative for hydronephrosis or ureteral calculi * Source of infection is not identified at this point * Lactic acid decreased, however rebounded Plan: * Neurology consulted * Cocci serology pending * Cefepime 2 g IV every 8 hours, vancomycin * Maintenance LR at 125/h, additional bolus LR liter * Trending lactic acid * Blood and urine cultures pending #Transaminitis #Hyperammonemia (Resolved) #Elevated PT #Elevated INR (Resolved) * Ammonia 49, AST 79, ALT 179, PT 14.6, INR 1.4 * Repeat ammonia 13, repeat PT elevated at 13.9, INR 1.3, APTT 23.4 * Abdominal ultrasound negative for cholelithiasis or cholecystitis * Patient does not have right upper quadrant pain or any of Charcot's triad * Besides atorvastatin, the patient is not taking any medications that are overly taxing on the liver * Patient does not drink alcohol * No clear explanation for transaminitis, hyperammonemia, elevated PT and elevated INR at this time, consider clinical picture of severe sepsis with elevated lactic acid Plan: * Monitor ammonia level #Hyperthyroidism (Resolved) * Thyroxine 13.6 repeat thyroxine 1.18 * Consider acute phase thyrotoxicosis reaction over underlying thyroid condition #Hyperglycemia * Fingerstick glucose 237 on arrival * Per patient's mother, he does not have a history of diabetes * A1c 5.9 Plan: * Insulin sliding scale #GERD * Per history taken from the patient's mother Plan: * Pantoprazole 40 mg IV daily #Hypercholesterolemia * Per history taken from patient's mother * Patient takes atorvastatin 40 mg p.o. daily at home Plan: * Hold in the presence of transaminitis #Asthma * Per patient history gathered from patient's mother * Patient montelukast 10 mg p.o. daily Plan: * Pending med rec, consider restarting home bradykinin inhibitor montelukast Hospital Maintenance: DVT ppx: SCDs Diet: Regular diet IV lines: Peripheral IVs Code status: Full code Dispo: Patient admitted for severe sepsis secondary to suspected UTI. Started on cefepime and vancomycin. Trending lactic acid and continuing maintenance fluids. Blood and urine cultures pending. Patient's mentation did not improve even though his anion gap resolved. His lactic acid decreased then rebounded. Neurology consulted, cocci serology ordered. Physical therapy ordered. Patient was seen and discussed with my attending physician Dr. Giovanny SALINAS and my senior resident Dr. Rosa Maria SALINAS PGY-3. Alan Bernabe DO PGY-1. Attending Provider Attestation/Addendum I attest that I was physically present for the evaluation, physical examination, lab and imaging review of the patient with the residents. I discussed the case with the residents and agree with the findings and plans of care as documented above. Javier Baltazar MD
[2025-02-03] MEDS: RINGERS LACTATED 1000 ML 1,000 ML 999 ML IV (14:39)
[2025-02-03 15:06] LABS: Cocci Serology, IgM Negative (Negative)
[2025-02-03 16:37] LABS: Reflex Lactate? Y
[2025-02-03] MEDS: RINGERS LACTATED 1000 ML 1,000 ML 75 ML IV (17:33)
[2025-02-03 17:58] LABS: Lactic Acid, 3 HR 3.1 mMol/L (0.4-2.0)
--- NOTE | 2025-02-03 18:03 | PC.NURSE ---
Patient refused bedside nurse swallow screen, Dr. Bernabe made aware.
[2025-02-03 21:38] LABS: Vancomycin,Trough 23.4 mcg/mL (5.0-10.0)
--- NOTE | 2025-02-03 22:55 | PC.NURSE ---
notified Dr. Dunlap that patient failed nurse swallow screen, during swallow screen, patient would grimace when swallow, states it was not painful but it doesn't feel right when he swallows. Patient states it's like he doesn't feel it when he swallows. Per doctor to keep patient NPO and to be seen by [facility]. No other orders received.
[2025-02-04] VITALS (8 sets, daily range): BP systolic 98–139; BP diastolic 77–104; PULSE 102–122; RESP 13–22; TEMP 35.9–36.7; O2SAT 97–99; BMI 44.1; BMI 12.0
--- NOTE | 2025-02-04 01:31 | RESP.EEG ---
EEG completed and ready to be read
[2025-02-04] MEDS: DEXTROSE 50%-WATER INJ 50 ML SYRINGE IV (05:14)
[2025-02-04] MEDS: CEFEPIME INJ 2 GM in SODIUM CHLORIDE 0.9% (Popper) 50 ML IV ×3 (05:18→21:03)
[2025-02-04 06:06] LABS: Basophils # (Auto) 0.1 Thou/mm3 (0.0-0.2); Basophils % (Auto) 1 % (0-2.5); Eosinophils # (Auto) 0.3 Thou/mm3 (0.0-0.5); Eosinophils % (Auto) 3 % (0-10); Hematocrit 41.9 % (41.0-53.0); Hemoglobin 14.2 g/dL (13.5-16.0); Immature Granulocytes Auto 0.07 Thou/mm3 (0.00-0.00); Lymphocytes # (Auto) 3.7 Thou/mm3 (1.0-4.8); Lymphocytes % (Auto) 37 % (10-50); Mean Corpuscular HGB Conc 33.9 g/dl (31.0-37.0); Mean Corpuscular Hemoglobin 31.1 pg (25.0-35.0); Mean Corpuscular Volume 92 fL (80-100); Monocytes # (Auto) 0.2 Thou/mm3 (0.0-0.8); Monocytes % (Auto) 2 % (0-12); Neutrophils # (Auto) 5.6 Thou/mm3 (1.8-7.7); Neutrophils % (Auto) 57 % (37-80); Nucleated Red Blood Cell # 0.00 Thou/mm3 (0.00-0.00); Nucleated Red Blood Cell % 0 /100 WBC (0); Platelet Count 163 Thou/mm3 (140-440); RDW Standard Deviation 46.7 fL (35.1-43.9); Red Blood Count 4.56 Miln/mm3 (4.50-5.90); White Blood Count 9.8 Thou/mm3 (3.8-10.6)
[2025-02-04 06:28] LABS: Alanine Aminotransferase 110 U/L (10-49); Albumin, Serum 3.4 gm/dL (3.5-5.0); Albumin/Globulin Ratio 1.5 (1.2-2.2); Alkaline Phosphatase 46 U/L (46-116); Anion Gap 13 (7-16); Aspartate Amino Transferase 46 U/L (0-34); BUN/Creatinine Ratio 14 Ratio (12-20); Bilirubin,Total 0.5 mg/dL (0.3-1.2); Blood Urea Nitrogen 11 mg/dL (9-23); Calcium 9.0 mg/dL (8.3-10.6); Calcium (Corrected) 9.5 mg/dL (8.5-10.1); Carbon Dioxide 24.4 mMol/L (20.0-31.0); Chloride 111 mMol/L (98-107); Creatinine (Component) 0.8 mg/dL (0.6-1.3); Estimated Creatinine Clearance 145.0 mL/min (>60); Globulin 2.3 gm/dL (2.3-3.5); Glucose 118 mg/dL (74-106); Magnesium 2.1 mg/dL (1.6-2.6); Osmolality,Calculated 294 (275-295); Potassium 3.7 mMol/L (3.4-5.1); Sodium 148 mMol/L (136-145); Total Protein 5.7 gm/dL (5.7-8.2); eGFR > 60 See Note
[2025-02-04] MEDS: RINGERS LACTATED 1000 ML 1,000 ML 75 ML IV (07:16)
[2025-02-04] MEDS: DEXTROSE 5%-0.45% NS 1,000 ML 125 ML IV (09:31)
[2025-02-04] MEDS: FAMOTIDINE INJ 10 MG/ML VIAL 2 ML 20 MG IVP ×2 (09:31→21:03)
[2025-02-04] MEDS: VANCOMYCIN/NS 1 GM IVPB 200 ML IV ×2 (09:32→21:35)
--- NOTE | 2025-02-04 09:49 | PCS.ST ---
Swallow Evaluation completed. See report for details. Recommend Dysphagia 3 (chopped diet). No s/s of aspiration. No s/s of esophageal dysfunction.
[2025-02-04 09:59] LABS: Phosphorous 1.3 mg/dL (2.4-5.1)
[2025-02-04] MEDS: NAPH,KPH MBDB 1 PACKET (1.5 GM) 2 PACKET PO (11:34)
[2025-02-04] MEDS: LACTULOSE SYRUP 20 GM/30 ML UDC PO (11:35)
--- NOTE | 2025-02-04 13:25 | EKG_ITS ---
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
[2025-02-04 14:49] LABS: Cocci Serology, IgG Negative (Negative)
--- NOTE | 2025-02-04 14:55 | ESPR_ITS ---
<Statement entered by Adelfo Fountain MD - 02/04/25 15:32> No acute overnight events. Seen and examined at bedside with mother present. She states that he continues to appear confused and is not at his baseline. Upon evaluation, patient is alert but only oriented to self and year only. Vital signs show heart rate of 121 and repeat EKG showed sinus tachycardia with QTc of 490 but other vital signs stable. Leukocytosis improved from 17 to 10, CHEM panel showed low phosphorus and was repleted. Given lack of significant improvement in mentation, neurology was consulted and pending recommendations at this time. Will continue cefepime and vancomycin given improvement in leuocytosis and pending thiamine levels. ----- Note reviewed and agree with care plan as documented. Please refer to the note below for further details. Plan discussed with attending physician Dr. Giovanny Fountain MD PGY-2 Internal Medicine Documentation for date of: 02/04/25 Subjective Subjective Interval history: Patient was seen and examined at bedside. No acute events took place overnight. Patient knows self, recognizes the state not the city where he is in, knows the year not the month, and is able to verbalize his year not day. Spoke to his mother at bedside, states that patient is not at his baseline and is more confused. Exam Vital Signs Temp Pulse Resp BP Pulse Ox O2 Del Method 96.7 F L 121 H 13 120/84 98 Room Air 02/04/25 12:00 02/04/25 12:00 02/04/25 12:00 02/04/25 12:00 02/04/25 12:00 02/04/25 12:00 Narrative Exam General: Obese man. Altered, disoriented to place and time, oriented to self. Neurologic: No gross neurological deficit, and patient able to move all 4 extremities. HEENT: Normocephalic, atraumatic, mucous membranes moist. Pupils reactive to light. Heart: Tachycardic, regular rhythm, normal S1 and S2, no murmurs. Lungs: Clear to auscultation bilaterally with no wheezing or crackles. Abdomen: Soft, nondistended, nontender, positive bowel sounds. No guarding or rebound tenderness. Extremities: No edema. 2+ radial and dorsalis pedis pulses bilaterally. Skin: Warm. Dry. No rash or ecchymoses. Objective Labs 02/04/25 05:53 02/04/25 17:50 Labs: Laboratory Results - last 24 hr 02/03/25 02/03/25 02/03/25 10:20 17:49 20:57 WBC RBC Hgb Hct MCV MCH MCHC RDW Std Deviation Plt Count Neut % (Auto) Lymph % (Auto) Grand % (Auto) Eos % (Auto) Baso % (Auto) Neut # (Auto) Lymph # (Auto) Grand # (Auto) Eos # (Auto) Baso # (Auto) Immature Gran # (Auto) Absolute Nucleated RBC Immature Gran % Nucleated RBC % Sodium Potassium Chloride Carbon Dioxide Anion Gap BUN Creatinine Estim Creat Clear Calc eGFR BUN/Creatinine Ratio Glucose Calculated Osmolality Lactic Acid 3.1 H Calcium Corrected Calcium Phosphorus Magnesium Total Bilirubin AST ALT Alkaline Phosphatase Total Protein Albumin Globulin Albumin/Globulin Ratio Vancomycin Trough 23.4 H* Coccidioides IgG Ab Negative Coccidioides IgM Ab Negative 02/04/25 05:53 WBC 9.8 D RBC 4.56 Hgb 14.2 Hct 41.9 MCV 92 MCH 31.1 MCHC 33.9 RDW Std Deviation 46.7 H Plt Count 163 D Neut % (Auto) 57 Lymph % (Auto) 37 Grand % (Auto) 2 Eos % (Auto) 3 Baso % (Auto) 1 Neut # (Auto) 5.6 Lymph # (Auto) 3.7 Grand # (Auto) 0.2 Eos # (Auto) 0.3 Baso # (Auto) 0.1 Immature Gran # (Auto) 0.07 H Absolute Nucleated RBC 0.00 Immature Gran % 1 H Nucleated RBC % 0 Sodium 148 H Potassium 3.7 Chloride 111 H Carbon Dioxide 24.4 Anion Gap 13 BUN 11 Creatinine 0.8 Estim Creat Clear Calc 145.0 eGFR > 60 BUN/Creatinine Ratio 14 Glucose 118 H Calculated Osmolality 294 Lactic Acid Calcium 9.0 Corrected Calcium 9.5 Phosphorus 1.3 L Magnesium 2.1 Total Bilirubin 0.5 AST 46 H ALT 110 H Alkaline Phosphatase 46 Total Protein 5.7 Albumin 3.4 L Globulin 2.3 Albumin/Globulin Ratio 1.5 Vancomycin Trough Coccidioides IgG Ab Coccidioides IgM Ab ABG Interpretation ABG results: 02/02/25 16:10 VBG pH 7.55 VBG pCO2 25 L VBG pO2 113 H VBG Base Excess 1 Quality Measures Quality Measures none Assessment & Plan Assessment Current Active Medications: Generic Name Dose Route Start Last Admin Trade Name Freq PRN Reason Stop Dose Admin Acetaminophen 650 mg 02/02/25 16:12 Acetaminophen 325 Mg Tablet PO 03/04/25 15:11 Q6H PRN Fever >99.9 Dextrose 50 ml 02/02/25 17:28 02/04/25 05:14 Dextrose 50%-Water Inj 50 Ml Syringe IV 03/04/25 17:27 50 ml Q15MIN PRN Administration BG <50 OR BG <70 & pt unresponsive Famotidine 20 mg 02/04/25 09:00 02/04/25 09:31 Famotidine Inj 10 Mg/Ml Vial 2 Ml IVP 03/06/25 08:59 20 mg BID ROBBIE Administration Glucagon 1 mg 02/02/25 17:28 Glucagon Inj 1 Mg Vial IM Q15MIN PRN BG <70, and no IV access Cefepime HCl 2 gm/ Sodium 50 mls @ 100 mls/hr 02/02/25 17:17 02/04/25 14:48 Chloride IV 02/09/25 17:16 100 mls/hr Q8HR ROBBIE Administration Vancomycin/Sodium Chloride 200 mls @ 120 mls/hr 02/04/25 10:00 02/04/25 09:32 Vancomycin/Ns 1 Gm Ivpb IV 02/11/25 09:59 120 mls/hr BID@1000,2200 ROBBIE Administration Protocol Dextrose/Sodium Chloride 1,000 mls @ 125 mls/hr 02/04/25 08:56 02/04/25 09:31 D5-1/2ns IV 02/04/25 16:51 125 mls/hr .Q8H ONE Administration Insulin Human Lispro 0 unit 02/04/25 11:30 02/04/25 11:40 Insulin Lispro (Admelog) 1 Unit/0.01 Ml Unit SC 03/06/25 11:29 Not Given ACHS ROBBIE Protocol Ondansetron HCl 4 mg 02/02/25 15:17 Ondansetron Inj 2 Mg/Ml Inj 2 Ml IVP 03/04/25 15:16 Q6H PRN NAUSEA OR VOMITING Protocol Pharmacy Consult 1 each 02/02/25 09:45 Vancomycin Pharmacy To Dose 1 Each Each IV 03/04/25 09:44 QDAY PRN CONSULT Plan Summary: Logan Dye is a 44-year-old male with a past medical history of hypertension, GERD, allergies, asthma, hypercholesterolemia, 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 He was admitted for severe sepsis. #Acute encephalopathy secondary to #Severe sepsis secondary to #UTI versus #Acute anion gap metabolic acidosis versus #Lactic acidosis #Leukocytosis, resolved * Patient presented with altered mental status, was unable to give a history but was able to deny or admit symptoms for a review of systems * Vitals remarkable for tachycardia, remainder of signs WNL. WBC count improved to 9.8 compared to 24.3 on presentation. in addition to lactic acid of 10.8, which is evidence of end organ damage due to hypoperfusion * Patient denied dysuria, urine positive for 1+ protein, 2+ blood, 54 RBC, 24 white blood cells, leukocyte esterase positive * Patient presented with an anion gap of 25 and appears to be compensating in a respiratory manner appropriate for metabolic acidosis, as VBG showed a pH of 7.55 and a pCO2 of 25 * CT abdomen pelvis was negative for hydronephrosis or ureteral calculi * Source of infection is not identified at this point * Lactic acid decreased, however rebounded * U ctx negative. * B ctx also negative after 48h. Plan: * Neurology consulted * Cocci serology pending * Cefepime 2 g IV every 8 hours, vancomycin * Maintenance LR at 125/h, additional bolus LR liter * Trending lactic acid * ordered echocardiography to rule out endocarditis #Hypernatremia Na 148 worse from yesterday 146. Patient does not have adequate oral intake. Switched IV fluid from LR to D5-1/2NS. Monitor Na closely. #Transaminitis #Hyperammonemia (Resolved) #Elevated PT #Elevated INR (Resolved) * T. bili 0.5, AST 46, ALT 110, alk phos 46 (02/04) improved from yesterday. * Repeat ammonia 13, repeat PT elevated at 13.9, INR 1.3, APTT 23.4 * Abdominal ultrasound negative for cholelithiasis or cholecystitis * Patient does not have right upper quadrant pain or any of Charcot's triad * Besides atorvastatin, the patient is not taking any medications that are overly taxing on the liver * Patient does not drink alcohol * No clear explanation for transaminitis, hyperammonemia, elevated PT and elevated INR at this time, consider clinical picture of severe sepsis with elevated lactic acid Plan: * Monitor ammonia level #Hyperthyroidism (Resolved) * Thyroxine 13.6 repeat thyroxine 1.18 * Consider acute phase thyrotoxicosis reaction over underlying thyroid condition #Hyperglycemia * Fingerstick glucose 237 on arrival * Per patient's mother, he does not have a history of diabetes * A1c 5.9 Plan: * Insulin sliding scale #GERD * Per history taken from the patient's mother Plan: * Pantoprazole 40 mg IV daily #Hypercholesterolemia * Per history taken from patient's mother * Patient takes atorvastatin 40 mg p.o. daily at home Plan: * Hold in the presence of transaminitis #Asthma * Per patient history gathered from patient's mother * Patient montelukast 10 mg p.o. daily Plan: * Pending med rec, consider restarting home bradykinin inhibitor montelukast Hospital Maintenance: DVT ppx: SCDs Diet: Regular diet IV lines: Peripheral IVs Code status: Full code Dispo: Patient admitted for severe sepsis secondary to suspected UTI. Started on cefepime and vancomycin. Trending lactic acid and continuing maintenance fluids. Blood and urine cultures pending. Patient's mentation did not improve even though his anion gap resolved. His lactic acid decreased then rebounded. Neurology consulted, cocci serology ordered. Physical therapy ordered. This case was discussed with my attending physician, Dr. Baltazar, and senior resident, Dr Александр Yuen. Stephanie Panda, DO PGY I Attending Provider Attestation/Addendum I attest that I was physically present for the evaluation, physical examination, lab and imaging review of the patient with the residents. I discussed the case with the residents and agree with the findings and plans of care as documented above. Patient seen and examined at bedside this morning. Appears slightly more awake compared to yesterday. But continues to be confused, talked with his mother at bedside, states that patient is not at his baseline and is more confused. Continues to be tachycardic, rest of the vitals are within normal limits. WBC count has improved to 9.8 compared to 24.3 on presentation. Chemistry panel shows worsening sodium level, 148 today from 146 yesterday. Phosphorus level noted to be 1.3, repleted accordingly. Liver function has been slowly. Improving urine culture came back negative, blood culture has been negative for 48 hours. Given with negative urine culture cannot fully rule out UTI. Since patient's mentation has not been back to baseline, we will discuss with neurology regarding further workup. Continues to be on IV cefepime and vancomycin. Ordered echocardiography to rule out endocarditis. We will switch his IV fluid from Ringer's lactate to D5 half NS and monitor sodium level closely, Patient has not have good oral intake. Javier Baltazar MD
--- NOTE | 2025-02-04 17:55 | ECHO_ITS ---
Transthoracic Echo Report Ht (in): 66 Wt (lb): 273 Exam Location: Echo Lab Status: Inpatient Business Services Clerk: Nessa Quezada Indications: Procedure Performed: BP: 132 / 86 HR: 110 MEASUREMENTS (Male / Female) Normal Values 2D ECHO LV Diastolic Diameter PLAX 4.6 cm 4.2 - 5.9 / 3.9 - 5.3 cm LV Systolic Diameter PLAX 2.9 cm IVS Diastolic Thickness 1.0 cm 0.6 - 1.0 / 0.6 - 0.9 cm LVPW Diastolic Thickness 1.0 cm 0.6 - 1.0 / 0.6 - 0.9 cm LV Relative Wall Thickness 0.4 LVOT Diameter 1.9 cm LA Volume Index 13.8 cm?/m? 16 - 28 cm?/m? Ascending Aorta Diameter 3.3 cm M-MODE AV Cusp Separation MM 1.7 cm DOPPLER AV Peak Velocity 101.0 cm/s AV Peak Gradient 4.1 mmHg AV Mean Gradient 3.0 mmHg AV Velocity Time Integral 16.8 cm LVOT Peak Velocity 108.0 cm/s LVOT Peak Gradient 4.7 mmHg LVOT Velocity Time Integral 17.3 cm LVOT Cardiac Index 2186.7 cm?/min?m? AV Area Cont Eq vti 2.9 cm? AV Area Cont Eq pk 3.0 cm? MV Area PHT 5.2 cm? Mitral E Point Velocity 98.0 cm/s TR Peak Velocity 158.0 cm/s TR Peak Gradient 10.0 mmHg PV Peak Velocity 106.0 cm/s PV Peak Gradient 4.5 mmHg FINDINGS Left Ventricle Hyperdynamic, normal left ventricular size, wall thickness, systolic function with no obvious regional wall motion abnormalities. There is grade I diastolic dysfunction of the left ventricle (impaired relaxation pattern). The ejection fraction is visually estimated at 60-65%. Right Ventricle The right ventricle is normal in size and systolic function. Left Atrium The left atrial cavity size is mildly increased. Right Atrium The right atrium is normal by two-dimensional imaging, color flow and Doppler imaging with no structural abnormalities, no thrombus formation present. Atrial Septum The interatrial septum appears normal with no evidence of a shunt. Aorta The aorta is normal by two-dimensional, color flow and Doppler interrogation. Mitral Valve The mitral valve is normal by two-dimensional, color flow and Doppler interrogation. There is no significant mitral valve regurgitation, stenosis or prolapse. Aortic Valve The aortic valve is trileaflet and normal by two-dimensional, color flow and Doppler interrogation. There is no significant aortic valve regurgitation. Tricuspid Valve There is trace tricuspid valve regurgitation. Pulmonic Valve The pulmonic valve is not well visualized. There is no significant pulmonic valve regurgitation. Vessels Ivc not well visualized Pericardium The pericardium is normal by two-dimensional imaging. There is no significant pericardial effusion. Other Findings TDS due to patient lieing supine and non- cooperative CONCLUSIONS Indication: R/o vegetations Normal left ventricular size/ hyperdynamic. EF estimated 60-65% The right ventricle is normal in size and systolic function. Normal aortic valve Trace mitral and trace tricuspid regurgitation NO EVIDENCE OF VEGETATIONS . TDS due to patient lieing supine and non- cooperative Sonya Fair (Electronically Signed) Final Date: 06 February 2025 17:09
[2025-02-04 18:21] LABS: Sodium 147 mMol/L (136-145)
[2025-02-04 21:15] LABS: HIV Rapid (Source Pt) Non-Reactive
[2025-02-04 21:33] LABS: Hepatitis B Surface Antigen Non Reactive (Non React); Hepatitis C Ab (Source Pt) Non Reactive (Non React)
--- NOTE | 2025-02-04 22:47 | ESPR_ITS ---
Documentation for date of: 02/04/25 Subjective Subjective Interval history: Patient was seen in telemetry today at the bedside with his mother. Patient's mental status is still not back to baseline, intermittent confusion and nonsensical speech at times which is very unusual per mother. Exam - Neurology Vital Signs Temp Pulse Resp BP Pulse Ox O2 Del Method 97.5 F 108 H 19 107/87 H 97 Room Air 02/04/25 19:55 02/04/25 20:00 02/04/25 19:55 02/04/25 19:55 02/04/25 19:55 02/04/25 19:55 Narrative Exam GENERAL APPEARANCE: Well-developed, obese built male in no acute distress. HEENT: Normocephalic, atraumatic, extraocular movements intact. Pupils: Equal reacting to light NECK: Supple, no JVD or bruits. CARDIOVASULAR: Heart: S1, S2 heard, regular without S3-S4 or murmur no rubs or gallops. LUNGS/CHEST: Clear to auscultation bilaterally. No rails, rhonchi, or wheezing. Normal inspection. ABDOMEN: Soft, nontender, with normal bowel sounds. No pulsatile masses. No rebound, rigidity, or guarding. Normal inspection and palpation. EXTREMITIES: Normal inspection and palpation. No edema, clubbing or cyanosis. SKIN: Warm and dry without rashes. Normal inspection. MUSCULOSKELETAL: No cervical, thoracic, lumbar or midline bony tenderness. Normal inspection. NEURO: Alert, awake and oriented x2. Cranial nerves: II through XII grossly intact. Speech and language: Normal with no dysarthria or dysphasia. Motor system: Tone and bulk: Normal: Strength: 5 out of 5 in all 4 extremities; No pronator drift noted. Deep tendon reflexes: 2+ bilaterally symmetrical. Plantar reflex: Downgoing bilaterally. Sensory system: Intact to all modalities of sensation bilaterally. Coordination: Intact to [id number] and adde-wepy-sfaf test bilaterally. No ataxia, no dysmetria, or dysdiadochokinesia noted. No intention tremors noted. Gait: Not tested. No signs of meningeal irritation noted. PSYCHIATRIC: Normal mood and affect. Objective Labs 02/04/25 05:53 02/04/25 17:50 Labs: Laboratory Results - last 24 hr 02/03/25 02/04/25 02/04/25 10:20 05:53 12:38 WBC 9.8 D RBC 4.56 Hgb 14.2 Hct 41.9 MCV 92 MCH 31.1 MCHC 33.9 RDW Std Deviation 46.7 H Plt Count 163 D Neut % (Auto) 57 Lymph % (Auto) 37 [place] % (Auto) 2 Eos % (Auto) 3 Baso % (Auto) 1 Neut # (Auto) 5.6 Lymph # (Auto) 3.7 [place] # (Auto) 0.2 Eos # (Auto) 0.3 Baso # (Auto) 0.1 Immature Gran # (Auto) 0.07 H Absolute Nucleated RBC 0.00 Immature Gran % 1 H Nucleated RBC % 0 Sodium 148 H Potassium 3.7 Chloride 111 H Carbon Dioxide 24.4 Anion Gap 13 BUN 11 Creatinine 0.8 Estim Creat Clear Calc 145.0 eGFR > 60 BUN/Creatinine Ratio 14 Glucose 118 H Calculated Osmolality 294 Calcium 9.0 Corrected Calcium 9.5 Phosphorus 1.3 L Magnesium 2.1 Total Bilirubin 0.5 AST 46 H ALT 110 H Alkaline Phosphatase 46 Total Protein 5.7 Albumin 3.4 L Globulin 2.3 Albumin/Globulin Ratio 1.5 Coccidioides IgG Ab Negative Hep Bs Antigen Non Reactive Hepatitis C Antibody Non Reactive HIV 1&2 Antibody Rapid Non-Reactive 02/04/25 17:50 WBC RBC Hgb Hct MCV MCH MCHC RDW Std Deviation Plt Count Neut % (Auto) Lymph % (Auto) [place] % (Auto) Eos % (Auto) Baso % (Auto) Neut # (Auto) Lymph # (Auto) [place] # (Auto) Eos # (Auto) Baso # (Auto) Immature Gran # (Auto) Absolute Nucleated RBC Immature Gran % Nucleated RBC % Sodium 147 H Potassium Chloride Carbon Dioxide Anion Gap BUN Creatinine Estim Creat Clear Calc eGFR BUN/Creatinine Ratio Glucose Calculated Osmolality Calcium Corrected Calcium Phosphorus Magnesium Total Bilirubin AST ALT Alkaline Phosphatase Total Protein Albumin Globulin Albumin/Globulin Ratio Coccidioides IgG Ab Hep Bs Antigen Hepatitis C Antibody HIV 1&2 Antibody Rapid ABG Interpretation ABG results: 02/02/25 16:10 VBG pH 7.55 VBG pCO2 25 L VBG pO2 113 H VBG Base Excess 1 Assessment & Plan Assessment and plan (1) Altered mental status: Status: Acute Assessment and plan: Patient needs MRI brain, EEG to evaluate further Then consider lumbar puncture to evaluate for other causes of encephalopathy. Continue to monitor closely for any seizures. Continue antibiotics: Cefepime and vancomycin
[2025-02-05] VITALS (7 sets, daily range): BP systolic 103–158; BP diastolic 82–99; PULSE 105–120; RESP 14–20; TEMP 36.1–36.6; O2SAT 94–99; BMI 43.2; BMI 43.0; BMI 11.0
[2025-02-05] MEDS: CEFEPIME INJ 2 GM in SODIUM CHLORIDE 0.9% (Popper) 50 ML IV ×3 (05:24→21:06)
[2025-02-05 06:36] LABS: Basophils # (Auto) 0.1 Thou/mm3 (0.0-0.2); Basophils % (Auto) 1 % (0-2.5); Eosinophils # (Auto) 0.3 Thou/mm3 (0.0-0.5); Eosinophils % (Auto) 4 % (0-10); Hematocrit 39.9 % (41.0-53.0); Hemoglobin 13.5 g/dL (13.5-16.0); Immature Granulocytes Auto 0.07 Thou/mm3 (0.00-0.00); Lymphocytes # (Auto) 4.2 Thou/mm3 (1.0-4.8); Lymphocytes % (Auto) 46 % (10-50); Mean Corpuscular HGB Conc 33.8 g/dl (31.0-37.0); Mean Corpuscular Hemoglobin 31.0 pg (25.0-35.0); Mean Corpuscular Volume 92 fL (80-100); Monocytes # (Auto) 0.4 Thou/mm3 (0.0-0.8); Monocytes % (Auto) 4 % (0-12); Neutrophils # (Auto) 4.1 Thou/mm3 (1.8-7.7); Neutrophils % (Auto) 45 % (37-80); Nucleated Red Blood Cell # 0.00 Thou/mm3 (0.00-0.00); Nucleated Red Blood Cell % 0 /100 WBC (0); Platelet Count 182 Thou/mm3 (140-440); RDW Standard Deviation 46.0 fL (35.1-43.9); Red Blood Count 4.35 Miln/mm3 (4.50-5.90); White Blood Count 9.1 Thou/mm3 (3.8-10.6)
[2025-02-05 06:50] LABS: Alanine Aminotransferase 97 U/L (10-49); Albumin, Serum 3.4 gm/dL (3.5-5.0); Albumin/Globulin Ratio 1.5 (1.2-2.2); Alkaline Phosphatase 46 U/L (46-116); Anion Gap 13 (7-16); Aspartate Amino Transferase 45 U/L (0-34); BUN/Creatinine Ratio 13 Ratio (12-20); Bilirubin,Total 0.6 mg/dL (0.3-1.2); Blood Urea Nitrogen 10 mg/dL (9-23); Calcium 8.9 mg/dL (8.3-10.6); Calcium (Corrected) 9.4 mg/dL (8.5-10.1); Carbon Dioxide 24.2 mMol/L (20.0-31.0); Chloride 112 mMol/L (98-107); Creatinine (Component) 0.8 mg/dL (0.6-1.3); Estimated Creatinine Clearance 143.3 mL/min (>60); Globulin 2.3 gm/dL (2.3-3.5); Glucose 91 mg/dL (74-106); Magnesium 1.9 mg/dL (1.6-2.6); Osmolality,Calculated 295 (275-295); Phosphorous 1.7 mg/dL (2.4-5.1); Potassium 3.2 mMol/L (3.4-5.1); Sodium 149 mMol/L (136-145); Total Protein 5.7 gm/dL (5.7-8.2); eGFR > 60 See Note
--- NOTE | 2025-02-05 09:20 | ESPR_ITS ---
<Statement entered by Adelfo Fountain MD - 02/05/25 15:09> No acute overnight events. Seen and examined at bedside and patient is alert but not oriented to self, place, birthdate. He was evaluated by neurology and EEG was obtained but study was limited by artifact so recommending to repeat EEG and obtain MRI brain which is also currently pending and depending on results considering LP. Otherwise, continuing cefepime and vancomycin for presumed UTI but also covers for bacterial etiologies for meningitis/encephalitis. Vital signs show sinus tachycardia with heart rate in low 100s. And electrolytes repleted and hyponatremia being treated with encouraging oral intake of free water. ----- Note reviewed and agree with care plan as documented. Please refer to the note below for further details. Plan discussed with attending physician Dr. Ashlie Fountain MD PGY-2 Internal Medicine Documentation for date of: 02/05/25 Subjective Subjective Interval history: Patient seen and examined at bedside. EKG yesterday showed sinus tachycardia with a rate of 115.? Lactic acid 3.1 yesterday.? Vitals show tachycardia. Blood and urine cultures negative. Will repeat EEG. Neurology on board, brain MRI today, consider LP following results. Exam Vital Signs Temp Pulse Resp BP Pulse Ox O2 Del Method 96.9 F 112 H 17 158/97 H 99 Room Air 02/05/25 08:00 02/05/25 08:00 02/05/25 08:00 02/05/25 08:00 02/05/25 08:00 02/05/25 08:00 Narrative Exam General: Obese man. Altered, disoriented to place and time, oriented to self. Neurologic: No gross neurological deficit, and patient able to move all 4 extremities. HEENT: Normocephalic, atraumatic, mucous membranes moist. Pupils reactive to light. Heart: Tachycardic, regular rhythm, normal S1 and S2, no murmurs. Lungs: Clear to auscultation bilaterally with no wheezing or crackles. Abdomen: Soft, nondistended, nontender, positive bowel sounds. No guarding or rebound tenderness. Extremities: No edema. 2+ radial and dorsalis pedis pulses bilaterally. Skin: Warm. Dry. No rash or ecchymoses. Objective Labs 02/06/25 04:17 02/06/25 06:45 Labs: Laboratory Results - last 24 hr 02/03/25 02/04/25 02/04/25 10:20 05:53 12:38 WBC RBC Hgb Hct MCV MCH MCHC RDW Std Deviation Plt Count Neut % (Auto) Lymph % (Auto) [place] % (Auto) Eos % (Auto) Baso % (Auto) Neut # (Auto) Lymph # (Auto) [place] # (Auto) Eos # (Auto) Baso # (Auto) Immature Gran # (Auto) Absolute Nucleated RBC Immature Gran % Nucleated RBC % Sodium Potassium Chloride Carbon Dioxide Anion Gap BUN Creatinine Estim Creat Clear Calc eGFR BUN/Creatinine Ratio Glucose Calculated Osmolality Calcium Corrected Calcium Phosphorus 1.3 L Magnesium Total Bilirubin AST ALT Alkaline Phosphatase Total Protein Albumin Globulin Albumin/Globulin Ratio Coccidioides IgG Ab Negative Hep Bs Antigen Non Reactive Hepatitis C Antibody Non Reactive HIV 1&2 Antibody Rapid Non-Reactive 02/04/25 02/05/25 17:50 06:15 WBC 9.1 RBC 4.35 L Hgb 13.5 Hct 39.9 L MCV 92 MCH 31.0 MCHC 33.8 RDW Std Deviation 46.0 H Plt Count 182 Neut % (Auto) 45 Lymph % (Auto) 46 [place] % (Auto) 4 Eos % (Auto) 4 Baso % (Auto) 1 Neut # (Auto) 4.1 Lymph # (Auto) 4.2 [place] # (Auto) 0.4 Eos # (Auto) 0.3 Baso # (Auto) 0.1 Immature Gran # (Auto) 0.07 H Absolute Nucleated RBC 0.00 Immature Gran % 1 H Nucleated RBC % 0 Sodium 147 H 149 H Potassium 3.2 L D Chloride 112 H Carbon Dioxide 24.2 Anion Gap 13 BUN 10 Creatinine 0.8 Estim Creat Clear Calc 143.3 eGFR > 60 BUN/Creatinine Ratio 13 Glucose 91 Calculated Osmolality 295 Calcium 8.9 Corrected Calcium 9.4 Phosphorus 1.7 L Magnesium 1.9 Total Bilirubin 0.6 AST 45 H ALT 97 H Alkaline Phosphatase 46 Total Protein 5.7 Albumin 3.4 L Globulin 2.3 Albumin/Globulin Ratio 1.5 Coccidioides IgG Ab Hep Bs Antigen Hepatitis C Antibody HIV 1&2 Antibody Rapid ABG Interpretation ABG results: 02/02/25 16:10 VBG pH 7.55 VBG pCO2 25 L VBG pO2 113 H VBG Base Excess 1 Quality Measures Quality Measures none Assessment & Plan Assessment Current Active Medications: Generic Name Dose Route Start Last Admin Trade Name Freq PRN Reason Stop Dose Admin Acetaminophen 650 mg 02/02/25 16:12 Acetaminophen 325 Mg Tablet PO 03/04/25 15:11 Q6H PRN Fever >99.9 Dextrose 50 ml 02/02/25 17:28 02/04/25 05:14 Dextrose 50%-Water Inj 50 Ml Syringe IV 03/04/25 17:27 50 ml Q15MIN PRN Administration BG <50 OR BG <70 & pt unresponsive Famotidine 20 mg 02/04/25 09:00 02/04/25 21:03 Famotidine Inj 10 Mg/Ml Vial 2 Ml IVP 03/06/25 08:59 20 mg BID ROBBIE Administration Glucagon 1 mg 02/02/25 17:28 Glucagon Inj 1 Mg Vial IM Q15MIN PRN BG <70, and no IV access Cefepime HCl 2 gm/ Sodium 50 mls @ 100 mls/hr 02/02/25 17:17 02/05/25 05:24 Chloride IV 02/09/25 17:16 100 mls/hr Q8HR ROBBIE Administration Vancomycin/Sodium Chloride 200 mls @ 120 mls/hr 02/04/25 10:00 02/04/25 21:35 Vancomycin/Ns 1 Gm Ivpb IV 02/11/25 09:59 120 mls/hr BID@1000,2200 ROBBIE Administration Protocol Potassium Chloride 10 meq in 100 mls @ 100 mls/hr 02/05/25 07:50 Kcl Ivpb IV 02/05/25 11:49 Q1H ROBBIE Magnesium Sulfate 2 gm in 50 mls @ 25 mls/hr 02/05/25 07:50 Magnesium Sulfate Ivpb IV 02/05/25 09:49 X1 ONE Insulin Human Lispro 0 unit 02/04/25 11:30 02/05/25 07:26 Insulin Lispro (Admelog) 1 Unit/0.01 Ml Unit SC 03/06/25 11:29 Not Given ACHS ROBBIE Protocol Ondansetron HCl 4 mg 02/02/25 15:17 Ondansetron Inj 2 Mg/Ml Inj 2 Ml IVP 03/04/25 15:16 Q6H PRN NAUSEA OR VOMITING Protocol Pharmacy Consult 1 each 02/02/25 09:45 Vancomycin Pharmacy To Dose 1 Each Each IV 03/04/25 09:44 QDAY PRN CONSULT Plan Summary: Logan Dye is a 44-year-old male with a past medical history of hypertension, GERD, allergies, asthma, hypercholesterolemia, 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 He was admitted for severe sepsis. #Acute encephalopathy secondary to #Severe sepsis #Lactic acidosis #UTI (Ruled out) #Acute anion gap metabolic acidosis (Resolved) #Leukocytosis (Resolved) * Patient presented with altered mental status, was unable to give a history but was able to deny or admit symptoms for a review of systems * Patient met severe sepsis criteria on admission with tachycardia and leukocytosis in addition to lactic acid of 10.8, which is evidence of end organ damage due to hypoperfusion * Patient presented with an anion gap of 25 and appeared to be compensating in a respiratory manner appropriate for metabolic acidosis, as VBG showed a pH of 7.55 and a pCO2 of 25 * Patient denied dysuria, urine positive for 1+ protein, 2+ blood, 54 RBC, 24 white blood cells, leukocyte esterase positive * CT abdomen pelvis was negative for hydronephrosis or ureteral calculi * Urine and blood cultures negative, likely due to recent outpatient antibiotic course * Lactic acid decreased, however rebounded * Patient's mentation is still not at baseline * Cocci serology negative * Source of infection is not identified at this point Plan: * Brain MRI, consider LP following results * Neurology consulted * Cocci serology pending * Cefepime 2 g IV every 8 hours * Vancomycin * Echocardiography pending #Hypernatremia * Sodium 149 * Patient is 9.8 L positive, received multiple boluses presents lactic acidosis, this is likely the culprit Plan: * DC fluids #Transaminitis #Elevated PT #Hyperammonemia (Resolved) #Elevated INR (Resolved) * PT slightly elevated * AST ALT downtrending * Abdominal ultrasound negative for cholelithiasis or cholecystitis * Patient does not have right upper quadrant pain or any of Charcot's triad * Besides atorvastatin, the patient is not taking any medications that are overly taxing on the liver * Patient does not drink alcohol * No clear explanation for transaminitis, hyperammonemia, elevated PT and elevated INR at this time, consider clinical picture of severe sepsis with elevated lactic acid Plan: * No direct intervention at this time, continue to monitor #Hyperthyroidism (Resolved) * Thyroxine 13.6 repeat thyroxine 1.18 * Consider acute phase thyrotoxicosis reaction over underlying thyroid condition #Hyperglycemia (Resolved) * Fingerstick glucose 237 on arrival * Per patient's mother, he does not have a history of diabetes * A1c 5.9 Plan: * Insulin sliding scale #GERD * Per history taken from the patient's mother Plan: * Pantoprazole 40 mg IV daily #Hypercholesterolemia * Per history taken from patient's mother * Patient takes atorvastatin 40 mg p.o. daily at home Plan: * Hold in the presence of transaminitis #Asthma * Per patient history gathered from patient's mother * Patient montelukast 10 mg p.o. daily Plan: * Pending med rec, consider restarting home bradykinin inhibitor montelukast Hospital Maintenance: DVT ppx: SCDs Diet: Regular diet IV lines: Peripheral IVs Code status: Full code Dispo: Patient admitted for severe sepsis secondary to suspected UTI. Started on cefepime and vancomycin. Blood and urine cultures negative. Patient's mentation is still unchanged. Disoriented to place and time. MRI of the brain today. Will consider LP following the results. Patient was seen and discussed with my attending physician Dr. Ashlie SALINAS and my senior resident Dr. Александр SALINAS PGY-2. Alan Bernabe DO PGY-1. Attending Provider Attestation/Addendum I have examined the patient, reviewed labs and imaging findings, discussed the case with the resident(s), and reviewed entered orders. I agree with the plan of care as outlined in this note, with these additional summaries/recommendations: Patient and patient's mom seen at bedside. Patient continues to be encephalopathic although mom does agree that there has been improvement since admission. Will continue to treat underlying metabolic and infectious etiologies. In-house neurology following. We will order MRI brain. If no improvement patient may require lumbar puncture. EEG was not reliable and will repeat study. Per mom, patient has not had a seizure in over a decade. Patient continues to be dehydrated with electrolyte abnormalities which we will continue to correct and monitor for improvement. Continue breathing treatments as needed for history of asthma. Continue home levothyroxine. Continue IV antibiotic for urinary tract infection. Urine culture still pending at this time. Please see residents note for additional details and management. Dr. Ashlie MD
[2025-02-05] MEDS: Magnesium Sulfate 2 GM Ivpb 2 GM/50 ML BAG IV (09:33)
[2025-02-05] MEDS: FAMOTIDINE INJ 10 MG/ML VIAL 2 ML 20 MG IVP ×2 (09:34→20:07)
[2025-02-05] MEDS: POTASSIUM CHL 10 mEq IVPB 10 MEQ/100 ML BAG 75 MEQ IV ×4 (09:34→14:40)
[2025-02-05] MEDS: NAPH,KPH MBDB 1 PACKET (1.5 GM) PO ×2 (09:35→20:07)
[2025-02-05] MEDS: VANCOMYCIN/NS 1 GM IVPB 200 ML IV (10:57)
--- NOTE | 2025-02-05 14:42 | PC.SS ---
Follow up note: SS spoke to floor nurse and patient remains confused. PT called late yesterday to inform patient was max assist. Patient did not know his name. He was only able to sit up right in bed. SS contacted patient's mother, Thomas, to obtain further history. Patient's mother states patient's baseline was independent with ADL's. He was alert/oriented. Independent with ADL's. He was verbal and able to follow commands. Currently, floor nurse states patient is talking to people who aren't in the room. Patient's mother states he has epilepsy as well but has not had a seizure since he was 8 years old. Patient is not employed. He does not receive income. He does have food stamps/[employer]. Patient pending MRI and repeat EEG.
--- NOTE | 2025-02-05 15:00 | PC.NURSE ---
Per John from MRI, pt unable to tolerate MRI. Pt attempted to pull off head coil and was removed from machine. notified
--- NOTE | 2025-02-05 21:45 | RESP.EEG ---
EEG has been completed and is ready for MD interpretation
--- NOTE | 2025-02-05 23:46 | PD.NEUROPROG ---
Documentation for date of: 02/05/25 Subjective Subjective Interval history: Patient was seen in telemetry today at the bedside with his mother. Patient's mental status is still not back to baseline, intermittent confusion and nonsensical speech at times which is very unusual per mother. Patient was seen in telemetry today at the bedside. Noted that he could not stay still long enough to get the MRI done even though he was given sedation. Exam - Neurology Vital Signs Temp Pulse Resp BP Pulse Ox O2 Del Method 97.4 F 110 H 20 103/82 94 L Room Air 02/05/25 20:00 02/05/25 20:00 02/05/25 20:00 02/05/25 20:00 02/05/25 20:00 02/05/25 20:00 Narrative Exam GENERAL APPEARANCE: Well-developed, obese built male in no acute distress. HEENT: Normocephalic, atraumatic, extraocular movements intact. Pupils: Equal reacting to light NECK: Supple, no JVD or bruits. CARDIOVASULAR: Heart: S1, S2 heard, regular without S3-S4 or murmur no rubs or gallops. LUNGS/CHEST: Clear to auscultation bilaterally. No rails, rhonchi, or wheezing. Normal inspection. ABDOMEN: Soft, nontender, with normal bowel sounds. No pulsatile masses. No rebound, rigidity, or guarding. Normal inspection and palpation. EXTREMITIES: Normal inspection and palpation. No edema, clubbing or cyanosis. SKIN: Warm and dry without rashes. Normal inspection. MUSCULOSKELETAL: No cervical, thoracic, lumbar or midline bony tenderness. Normal inspection. NEURO: Alert, awake and oriented x2. Cranial nerves: II through XII grossly intact. Speech and language: Normal with no dysarthria or dysphasia. Motor system: Tone and bulk: Normal: Strength: 5 out of 5 in all 4 extremities; No pronator drift noted. Deep tendon reflexes: 2+ bilaterally symmetrical. Plantar reflex: Downgoing bilaterally. Sensory system: Intact to all modalities of sensation bilaterally. Coordination: Intact to opxlax-qfod-[id number] and pale-cyuj-xhvq test bilaterally. No ataxia, no dysmetria, or dysdiadochokinesia noted. No intention tremors noted. Gait: Not tested. No signs of meningeal irritation noted. PSYCHIATRIC: Normal mood and affect. Objective Labs 02/05/25 06:15 02/05/25 06:15 Labs: Laboratory Results - last 24 hr 02/05/25 06:15 WBC 9.1 RBC 4.35 L Hgb 13.5 Hct 39.9 L MCV 92 MCH 31.0 MCHC 33.8 RDW Std Deviation 46.0 H Plt Count 182 Neut % (Auto) 45 Lymph % (Auto) 46 [place] % (Auto) 4 Eos % (Auto) 4 Baso % (Auto) 1 Neut # (Auto) 4.1 Lymph # (Auto) 4.2 [place] # (Auto) 0.4 Eos # (Auto) 0.3 Baso # (Auto) 0.1 Immature Gran # (Auto) 0.07 H Absolute Nucleated RBC 0.00 Immature Gran % 1 H Nucleated RBC % 0 Sodium 149 H Potassium 3.2 L D Chloride 112 H Carbon Dioxide 24.2 Anion Gap 13 BUN 10 Creatinine 0.8 Estim Creat Clear Calc 143.3 eGFR > 60 BUN/Creatinine Ratio 13 Glucose 91 Calculated Osmolality 295 Calcium 8.9 Corrected Calcium 9.4 Phosphorus 1.7 L Magnesium 1.9 Total Bilirubin 0.6 AST 45 H ALT 97 H Alkaline Phosphatase 46 Total Protein 5.7 Albumin 3.4 L Globulin 2.3 Albumin/Globulin Ratio 1.5 ABG Interpretation ABG results: 02/02/25 16:10 VBG pH 7.55 VBG pCO2 25 L VBG pO2 113 H VBG Base Excess 1 Assessment & Plan Assessment and plan (1) Altered mental status: Status: Acute Assessment and plan: Patient needs repeat MRI brain with sedation and EEG to evaluate further Then consider lumbar puncture under fluoroscopy to evaluate for other causes of encephalopathy. Continue to monitor closely for any seizures. Continue antibiotics: Cefepime and vancomycin
[2025-02-06] VITALS (8 sets, daily range): BP systolic 114–136; BP diastolic 66–105; PULSE 109–118; RESP 17–98; TEMP 36.1–36.9; O2SAT 96–98; BMI 43.0
--- NOTE | 2025-02-06 | XR_ITS ---
Examination: MRI of brain without intravenous contrast. MRI brain with intravenous contrast. Date and time of exam:February 06, 2025, 1123 hours INDICATIONS: Altered mental status weakness beginning 3 days ago Technique: Multiple axial and sagittal images of the brain to been obtained. Siemens high-resolution 1.52 Chantelle short bore scanner utilized. Sagittal sections, T1 weighted images, TR 500, TE 14, are performed. Axial sections proton-density and T2-weighted images have been obtained. Inversion recovery axial images, TR 9260, TE 111, TR 2500. Diffusion weighted images, axial sections, TR 4800, TE 128, B value 1000. Axial sections, ADC map, TR 4800, TE 128. Axial and coronal images were also obtained post 20 cc gadolinium administered intravenously. Findings:: Enlargement of the sella turcica is not present. The optic chiasm and infundibular stalk are not remarkable. There is no localized enlargement of the medulla or karen. Fourth ventricle and cerebellar tonsils appear normal in position. No subacute area of hemorrhage density is seen. Fourth ventricle is midline. Mass in the cerebellopontine angle region is not evident. 7th and 8th nerve complexes exhibit symmetry Globes are symmetrical Orbital musculature including medial lateral rectus muscles do not exhibit abnormality Increased white matter signal is not seen Effacement of the cortical sulcal markings is not identified. Mass effect upon the ventricular system is not identified. Diffusion-weighted images demonstrate no focus of restricted diffusion Addendum will be made when the postcontrast images have been presented Impression: Negative for acute hemorrhage mass effect or midline shift No acute infarct No microvascular white matter change
[2025-02-06 00:05] LABS: Vancomycin,Trough 13.1 mcg/mL (5.0-10.0)
[2025-02-06] MEDS: VANCOMYCIN/NS 1 GM IVPB 200 ML IV (00:07)
--- NOTE | 2025-02-06 03:14 | PC.NURSE ---
[facility] downtime from 0200 to 0235.
[2025-02-06 05:14] LABS: Basophils # (Auto) 0.0 Thou/mm3 (0.0-0.2); Basophils % (Auto) 0 % (0-2.5); Eosinophils # (Auto) 0.0 Thou/mm3 (0.0-0.5); Eosinophils % (Auto) 0 % (0-10); Hematocrit 54.0 % (41.0-53.0); Hemoglobin 16.9 g/dL (13.5-16.0); Immature Granulocytes Auto 0.03 Thou/mm3 (0.00-0.00); Lymphocytes # (Auto) 1.8 Thou/mm3 (1.0-4.8); Lymphocytes % (Auto) 19 % (10-50); Mean Corpuscular HGB Conc 31.3 g/dl (31.0-37.0); Mean Corpuscular Hemoglobin 28.4 pg (25.0-35.0); Mean Corpuscular Volume 91 fL (80-100); Monocytes # (Auto) 0.6 Thou/mm3 (0.0-0.8); Monocytes % (Auto) 6 % (0-12); Neutrophils # (Auto) 7.1 Thou/mm3 (1.8-7.7); Neutrophils % (Auto) 74 % (37-80); Nucleated Red Blood Cell # 0.00 Thou/mm3 (0.00-0.00); Nucleated Red Blood Cell % 0 /100 WBC (0); Platelet Count 170 Thou/mm3 (140-440); RDW Standard Deviation 52.5 fL (35.1-43.9); Red Blood Count 5.96 Miln/mm3 (4.50-5.90); White Blood Count 9.5 Thou/mm3 (3.8-10.6)
[2025-02-06] MEDS: CEFEPIME INJ 2 GM in SODIUM CHLORIDE 0.9% (Popper) 50 ML IV ×3 (05:44→21:10)
[2025-02-06 07:57] LABS: Alanine Aminotransferase 117 U/L (10-49); Albumin, Serum 3.3 gm/dL (3.5-5.0); Albumin/Globulin Ratio 1.5 (1.2-2.2); Alkaline Phosphatase 51 U/L (46-116); Anion Gap 15 (7-16); Aspartate Amino Transferase 67 U/L (0-34); BUN/Creatinine Ratio 17 Ratio (12-20); Bilirubin,Total 0.6 mg/dL (0.3-1.2); Blood Urea Nitrogen 10 mg/dL (9-23); Calcium 8.6 mg/dL (8.3-10.6); Calcium (Corrected) 9.2 mg/dL (8.5-10.1); Carbon Dioxide 20.7 mMol/L (20.0-31.0); Chloride 116 mMol/L (98-107); Creatinine (Component) 0.6 mg/dL (0.6-1.3); Estimated Creatinine Clearance 191.1 mL/min (>60); Globulin 2.2 gm/dL (2.3-3.5); Glucose 84 mg/dL (74-106); Magnesium 2.2 mg/dL (1.6-2.6); Osmolality,Calculated 299 (275-295); Phosphorous 2.2 mg/dL (2.4-5.1); Potassium 4.2 mMol/L (3.4-5.1); Sodium 152 mMol/L (136-145); Total Protein 5.5 gm/dL (5.7-8.2); eGFR > 60 See Note
[2025-02-06] MEDS: FAMOTIDINE INJ 10 MG/ML VIAL 2 ML 20 MG IVP ×2 (09:25→21:12)
[2025-02-06] MEDS: DEXTROSE 5%-WATER 1,000 ML 150 ML IV (09:25)
[2025-02-06] MEDS: NAPH,KPH MBDB 1 PACKET (1.5 GM) PO (09:25)
[2025-02-06] MEDS: VANCOMYCIN/WATER 1250 MG IVPB 250 ML 120 MG IV ×2 (09:25→22:44)
--- NOTE | 2025-02-06 10:46 | XR_ITS ---
Examination: AP chest single view TECHNIQUE: AP portable semiupright chest single view Date and time: February 06 2025, 12:37 PM, comparison 01/10/2025 INDICATIONS: Difficulty breathing this week. FINDINGS: Air distended stomach. Normal heart size No lobar pneumonia. Moderate osteopenia IMPRESSION: No lobar pneumonia
[2025-02-06] MEDS: MIDAZOLAM INJ 1 MG/ML VIAL 2 ML IVP (11:05)
[2025-02-06 12:22] LABS: Base Excess -5 (-3-3); HCO3 17 mEq/L (20-26); Inspired Oxygen, FIO2 21 %; O2 Saturation 98 % (91-98); PCO2 24 mmHg (32.0-48.0); PO2 96 mmHg (83-108); pH, Arterial 7.47 (7.35-7.45)
[2025-02-06 12:24] LABS: Allen Test Performed/OK; Puncture Site Left Radial
[2025-02-06] MEDS: RINGERS LACTATED 1000 ML 1,000 ML 125 ML IV (12:58)
[2025-02-06 13:21] LABS: Lactate (Lactic Acid) 2.7 mMol/L (0.4-2.0)
[2025-02-06 13:26] LABS: Beta Hydroxybutyrate 0.6 mmol/L (<0.6)
[2025-02-06 14:10] LABS: Syphilis Nonreactive (Nonreactive)
--- NOTE | 2025-02-06 14:45 | PD.RESPRO ---
Documentation for date of: 02/06/25 Subjective Subjective Interval history: Patient examined at bedside. He has returned back from MRI but very sedated and somnolent on exam. Patient does arouse to sternal rub and painful stimuli but not answering any questions. Vitals are stable, labs notable for sodium 152, A1c 5.9, TSH normal 2.04. EEG from 02/05 was negative for any seizure-like activity. Repeat MRI read is pending. Plan to reassess patient's mentation after sedation wears off. Blood cultures and urine cultures are negative. Will consider LP by IR to rule out infectious etiology. Exam Vital Signs Temp Pulse Resp BP Pulse Ox O2 Del Method 98.4 F 111 H 17 124/66 97 Room Air 02/06/25 12:00 02/06/25 12:00 02/06/25 12:00 02/06/25 12:00 02/06/25 12:00 02/06/25 12:00 Narrative Exam General: Middle age male, obese, somnolent HEENT: NCAT, No JVD noted. Mucosa moist. Pupils are equal and reactive to light bilaterally Cardiovascular: Normal S1 and S2. Regular rate and rhythm. Respiratory: Lungs are clear to auscultation bilaterally. No wheezing or crackles heard. Abdomen: Soft, nontender, not distended, normal bowel sounds. Skin: Warm to touch, dry, no rashes noted Musculoskeletal: No gross injuries. No pitting edema Neuro: Markedly somnolent likely due to sedation, unable to asses neuro status. Arouses to pain and sternal rub. Objective Labs 02/07/25 14:10 02/07/25 19:10 Labs: Laboratory Results - last 24 hr 02/05/25 02/06/25 02/06/25 23:25 04:17 06:45 WBC 9.5 RBC 5.96 H Hgb 16.9 H D Hct 54.0 H D MCV 91 MCH 28.4 MCHC 31.3 RDW Std Deviation 52.5 H Plt Count 170 Neut % (Auto) 74 Lymph % (Auto) 19 [place] % (Auto) 6 Eos % (Auto) 0 Baso % (Auto) 0 Neut # (Auto) 7.1 Lymph # (Auto) 1.8 [place] # (Auto) 0.6 Eos # (Auto) 0.0 Baso # (Auto) 0.0 Immature Gran # (Auto) 0.03 H Absolute Nucleated RBC 0.00 Immature Gran % 0 Nucleated RBC % 0 Puncture Site ABG pH ABG pCO2 ABG pO2 ABG HCO3 ABG O2 Saturation ABG Base Excess FiO2 Sodium 152 H Potassium 4.2 D Chloride 116 H Carbon Dioxide 20.7 Anion Gap 15 BUN 10 Creatinine 0.6 Estim Creat Clear Calc 191.1 eGFR > 60 BUN/Creatinine Ratio 17 Glucose 84 Calculated Osmolality 299 H Lactic Acid Calcium 8.6 Corrected Calcium 9.2 Phosphorus 2.2 L Magnesium 2.2 Total Bilirubin 0.6 AST 67 H ALT 117 H Alkaline Phosphatase 51 Total Protein 5.5 L Albumin 3.3 L Globulin 2.2 L Albumin/Globulin Ratio 1.5 Beta-Hydroxybutyrate/Acetoacetate Vancomycin Trough 13.1 H Syphilis Serology 02/06/25 02/06/25 12:13 13:09 WBC RBC Hgb Hct MCV MCH MCHC RDW Std Deviation Plt Count Neut % (Auto) Lymph % (Auto) [place] % (Auto) Eos % (Auto) Baso % (Auto) Neut # (Auto) Lymph # (Auto) [place] # (Auto) Eos # (Auto) Baso # (Auto) Immature Gran # (Auto) Absolute Nucleated RBC Immature Gran % Nucleated RBC % Puncture Site Left Radial ABG pH 7.47 H ABG pCO2 24 L ABG pO2 96 ABG HCO3 17 L ABG O2 Saturation 98 ABG Base Excess -5 L FiO2 21 Sodium Potassium Chloride Carbon Dioxide Anion Gap BUN Creatinine Estim Creat Clear Calc eGFR BUN/Creatinine Ratio Glucose Calculated Osmolality Lactic Acid 2.7 H Calcium Corrected Calcium Phosphorus Magnesium Total Bilirubin AST ALT Alkaline Phosphatase Total Protein Albumin Globulin Albumin/Globulin Ratio Beta-Hydroxybutyrate/Acetoacetate 0.6 H Vancomycin Trough Syphilis Serology Nonreactive ABG Interpretation ABG results: 02/02/25 02/06/25 16:10 12:13 ABG pH 7.47 H ABG pCO2 24 L ABG pO2 96 ABG HCO3 17 L ABG O2 Saturation 98 ABG Base Excess -5 L VBG pH 7.55 VBG pCO2 25 L VBG pO2 113 H VBG Base Excess 1 Quality Measures Quality Measures none Assessment & Plan Assessment Current Active Medications: Generic Name Dose Route Start Last Admin Trade Name Freq PRN Reason Stop Dose Admin Acetaminophen 650 mg 02/02/25 16:12 Acetaminophen 325 Mg Tablet PO 03/04/25 15:11 Q6H PRN Fever >99.9 Dextrose 50 ml 02/02/25 17:28 02/04/25 05:14 Dextrose 50%-Water Inj 50 Ml Syringe IV 03/04/25 17:27 50 ml Q15MIN PRN Administration BG <50 OR BG <70 & pt unresponsive Famotidine 20 mg 02/04/25 09:00 02/06/25 09:25 Famotidine Inj 10 Mg/Ml Vial 2 Ml IVP 03/06/25 08:59 20 mg BID ROBBIE Administration Glucagon 1 mg 02/02/25 17:28 Glucagon Inj 1 Mg Vial IM Q15MIN PRN BG <70, and no IV access Cefepime HCl 2 gm/ Sodium 50 mls @ 100 mls/hr 02/02/25 17:17 02/06/25 13:56 Chloride IV 02/09/25 17:16 100 mls/hr Q8HR ROBBIE Administration Vancomycin HCl 250 mls @ 120 mls/hr 02/06/25 10:00 02/06/25 09:25 Vancomycin/Water 1250 Mg Ivpb IV 02/13/25 09:59 120 mls/hr BID@1000,2200 ROBBIE Administration Protocol Lactated Ringer's 1,000 mls @ 125 mls/hr 02/06/25 10:50 02/06/25 12:58 Lactated Ringers IV 02/06/25 18:49 125 mls/hr .Q8H ROBBIE Administration Insulin Human Lispro 0 unit 02/04/25 11:30 02/06/25 12:11 Insulin Lispro (Admelog) 1 Unit/0.01 Ml Unit SC 03/06/25 11:29 Not Given ACHS [facility] Protocol Lorazepam 1 mg 02/05/25 17:41 02/06/25 09:40 Lorazepam 0.5 Mg Tablet PO 02/10/25 17:40 1 mg X1 PRN Administration Agitation Ondansetron HCl 4 mg 02/02/25 15:17 Ondansetron Inj 2 Mg/Ml Inj 2 Ml IVP 03/04/25 15:16 Q6H PRN NAUSEA OR VOMITING Protocol Pharmacy Consult 1 each 02/02/25 09:45 Vancomycin Pharmacy To Dose 1 Each Each IV 03/04/25 09:44 QDAY PRN CONSULT Potassium Phos/Sodium Phos 1 packet 02/05/25 21:00 10/01/25 09:25 Naph,Counts Include [facility] Mbdb 1 Packet (1.5 Gm) PO 03/07/25 20:59 1 packet BID ROBBIE Administration Plan Summary: Logan Dye is a 44-year-old male with a past medical history of hypertension, GERD, allergies, asthma, hypercholesterolemia, 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 He was admitted for severe sepsis. #Acute encephalopathy #UTI (Ruled out) #Acute anion gap metabolic acidosis (Resolved) Patient presented with altered mental status, poor historian. anion gap of 25 and appeared to be compensating in a respiratory manner appropriate for metabolic acidosis, as VBG showed a pH of 7.55 and a pCO2 of 25 Patient denied dysuria, urine positive for 1+ protein, 2+ blood, 54 RBC, 24 white blood cells, leukocyte esterase positive CT abdomen pelvis was negative for hydronephrosis or ureteral calculi Urine and blood cultures negative, likely due to recent outpatient antibiotic course, Cocci serology negative EEG was nondiagnostic. No evidence of seizure-like activity. - Repeat brain MRI pending -reassess mentation after sedation wears off -consider LP following results -Cefepime 2 g IV every 8 hours -Vancomycin -Echocardiography pending #Hypernatremia #Transaminitis #Elevated PT #Hyperammonemia (Resolved) #Elevated INR (Resolved) #Hyperthyroidism (Resolved) #Hyperglycemia (Resolved) #GERD #Hypercholesterolemia #Asthma Primary care team to manage above conditions and ongoing care needs. The patient's management plan was discussed with my attending physician Dr. Broderick. Amanda Turner, PGY-2 Attending Provider Attestation/Addendum I personally have seen and examined the patient at the bedside and I agree with the residents findings, assessment and plan of care. As the patient's mental status is not back to baseline as per family, we will consider doing lumbar puncture by interventional tomorrow. Continue with antibiotics for now. MRI brain did not show any intracranial abnormalities.
--- NOTE | 2025-02-06 15:16 | ESPR_ITS ---
<Statement entered by Moo Sawyer MD - 02/06/25 20:07> Patient was seen and evaluated at bedside this morning. No acute overnight events. Patient this morning seemed more confused and was less engaged. Patient was able to answer questions and follow simple commands on my assessment. Patient's mother states that around a month ago patient has been declining in mental status and previously was able to do all his ADL's. No spikes in WBC or fevers. Patient had MRI done and did not show any infarct or white matter changes or hemorrhages. CXR negative, abdomen Xray showed possible SBO. Placed NG tube to LIS given had episodes of vomiting and to decrease intraabdominal pressure and in the possibility of SBO. Will keep NPO and possible LP tomorrow. Note reviewed and agree with resident's care plan as documented except as noted above. Case disclosed with attending Dr. Ashlie Sawyer PGY2 Disclaimer: Even though this this note was dictated by speech recognition and even though it was carefully revised there may still be minor errors in manager style due to voice recognition software. Documentation for date of: 02/06/25 Subjective Subjective Interval history: Patient seen and examined at bedside. Patient is now alert and oriented, does respond to name but does not follow commands or answers questions, fidgets with his glasses. He can only answer he is hungry. Appears to be more encephalopathic than yesterday. Family was at bedside later that afternoon who reports he was independent of all ADLs prior to this admission however has been on a slow mental decline since discharge of last admission in December 2024. Denies any family history of genetic diseases such as Huntingtons or any developmental delay. BP fluctuates 100-1 50s systolic over 80 to 90s diastolic. AM BP 132/89. Tachycardic at 109 with range of 8423-7190. WBC 9.5, hemoglobin increased from 13.5-16.9, sodium 152, repeat 149. Potassium 4.2, phosphorus low 2.2 repleted 1 packet of Neutra-Phos. AST ALT uptrending from 45/97 to 67/117. Repeat lactate 2.7, repeat 3.1. CK within normal limits at 50, beta hydroxybutyrate unremarkable, chest x-ray unremarkable. Repeat ABG 7.47/24/96/17. EEG showed diffuse slowing suggestive of diffuse encephalopathy with no epileptiform discharges, brain MRI unremarkable. Still unclear why patient is septic with continued elevated lactic acid. 1 L LR 100 cc an hour started. Continue cefepime and vancomycin. Follow-up prolactin, ammonia and syphilis. Pending IR LP tomorrow, PT/PTT ordered, n.p.o. after midnight order placed. Exam Vital Signs Temp Pulse Resp BP Pulse Ox O2 Del Method 98.4 F 111 H 17 124/66 97 Room Air 02/06/25 12:00 02/06/25 12:00 02/06/25 12:00 02/06/25 12:00 02/06/25 12:00 02/06/25 12:00 Narrative Exam GENERAL: AOx0, not answer questions or following commands HEENT: NC/AT, mucous membranes moist, bilateral sclera anicteric CARDIOVASCULAR: regular rate and rhythm, S1/S2 present, no murmurs appreciated PULMONARY: clear to auscultation bilaterally, no rales/rhonchi/wheezes ABDOMINAL: soft, non-tender, non-distended, no rebound/guarding, bowel sounds present EXTREMITIES: no peripheral edema SKIN: warm and dry, intact, excessive flaky skin on eyebrows and forehead NEURO: CN II-XII grossly intact Objective Labs 02/07/25 04:30 02/07/25 10:45 Labs: Laboratory Results - last 24 hr 02/05/25 02/06/25 02/06/25 23:25 04:17 06:45 WBC 9.5 RBC 5.96 H Hgb 16.9 H D Hct 54.0 H D MCV 91 MCH 28.4 MCHC 31.3 RDW Std Deviation 52.5 H Plt Count 170 Neut % (Auto) 74 Lymph % (Auto) 19 [place] % (Auto) 6 Eos % (Auto) 0 Baso % (Auto) 0 Neut # (Auto) 7.1 Lymph # (Auto) 1.8 [place] # (Auto) 0.6 Eos # (Auto) 0.0 Baso # (Auto) 0.0 Immature Gran # (Auto) 0.03 H Absolute Nucleated RBC 0.00 Immature Gran % 0 Nucleated RBC % 0 Puncture Site ABG pH ABG pCO2 ABG pO2 ABG HCO3 ABG O2 Saturation ABG Base Excess FiO2 Sodium 152 H Potassium 4.2 D Chloride 116 H Carbon Dioxide 20.7 Anion Gap 15 BUN 10 Creatinine 0.6 Estim Creat Clear Calc 191.1 eGFR > 60 BUN/Creatinine Ratio 17 Glucose 84 Calculated Osmolality 299 H Lactic Acid Calcium 8.6 Corrected Calcium 9.2 Phosphorus 2.2 L Magnesium 2.2 Total Bilirubin 0.6 AST 67 H ALT 117 H Alkaline Phosphatase 51 Total Protein 5.5 L Albumin 3.3 L Globulin 2.2 L Albumin/Globulin Ratio 1.5 Beta-Hydroxybutyrate/Acetoacetate Vancomycin Trough 13.1 H Syphilis Serology 02/06/25 02/06/25 12:13 13:09 WBC RBC Hgb Hct MCV MCH MCHC RDW Std Deviation Plt Count Neut % (Auto) Lymph % (Auto) [place] % (Auto) Eos % (Auto) Baso % (Auto) Neut # (Auto) Lymph # (Auto) [place] # (Auto) Eos # (Auto) Baso # (Auto) Immature Gran # (Auto) Absolute Nucleated RBC Immature Gran % Nucleated RBC % Puncture Site Left Radial ABG pH 7.47 H ABG pCO2 24 L ABG pO2 96 ABG HCO3 17 L ABG O2 Saturation 98 ABG Base Excess -5 L FiO2 21 Sodium Potassium Chloride Carbon Dioxide Anion Gap BUN Creatinine Estim Creat Clear Calc eGFR BUN/Creatinine Ratio Glucose Calculated Osmolality Lactic Acid 2.7 H Calcium Corrected Calcium Phosphorus Magnesium Total Bilirubin AST ALT Alkaline Phosphatase Total Protein Albumin Globulin Albumin/Globulin Ratio Beta-Hydroxybutyrate/Acetoacetate 0.6 H Vancomycin Trough Syphilis Serology Nonreactive ABG Interpretation ABG results: 02/02/25 02/06/25 16:10 12:13 ABG pH 7.47 H ABG pCO2 24 L ABG pO2 96 ABG HCO3 17 L ABG O2 Saturation 98 ABG Base Excess -5 L VBG pH 7.55 VBG pCO2 25 L VBG pO2 113 H VBG Base Excess 1 Quality Measures Quality Measures none Assessment & Plan Assessment Current Active Medications: Generic Name Dose Route Start Last Admin Trade Name Freq PRN Reason Stop Dose Admin Acetaminophen 650 mg 02/02/25 16:12 Acetaminophen 325 Mg Tablet PO 03/04/25 15:11 Q6H PRN Fever >99.9 Dextrose 50 ml 02/02/25 17:28 02/04/25 05:14 Dextrose 50%-Water Inj 50 Ml Syringe IV 03/04/25 17:27 50 ml Q15MIN PRN Administration BG <50 OR BG <70 & pt unresponsive Famotidine 20 mg 02/04/25 09:00 02/06/25 09:25 Famotidine Inj 10 Mg/Ml Vial 2 Ml IVP 03/06/25 08:59 20 mg BID ROBBIE Administration Glucagon 1 mg 02/02/25 17:28 Glucagon Inj 1 Mg Vial IM Q15MIN PRN BG <70, and no IV access Cefepime HCl 2 gm/ Sodium 50 mls @ 100 mls/hr 02/02/25 17:17 02/06/25 13:56 Chloride IV 02/09/25 17:16 100 mls/hr Q8HR ROBBIE Administration Vancomycin HCl 250 mls @ 120 mls/hr 02/06/25 10:00 02/06/25 09:25 Vancomycin/Water 1250 Mg Ivpb IV 02/13/25 09:59 120 mls/hr BID@1000,2200 ROBBIE Administration Protocol Lactated Ringer's 1,000 mls @ 125 mls/hr 02/06/25 10:50 02/06/25 12:58 Lactated Ringers IV 02/06/25 18:49 125 mls/hr .Q8H ROBBIE Administration Insulin Human Lispro 0 unit 02/04/25 11:30 02/06/25 12:11 Insulin Lispro (Admelog) 1 Unit/0.01 Ml Unit SC 03/06/25 11:29 Not Given ACHS [facility] Protocol Lorazepam 1 mg 02/05/25 17:41 02/06/25 09:40 Lorazepam 0.5 Mg Tablet PO 02/10/25 17:40 1 mg X1 PRN Administration Agitation Ondansetron HCl 4 mg 02/02/25 15:17 Ondansetron Inj 2 Mg/Ml Inj 2 Ml IVP 03/04/25 15:16 Q6H PRN NAUSEA OR VOMITING Protocol Pharmacy Consult 1 each 02/02/25 09:45 Vancomycin Pharmacy To Dose 1 Each Each IV 03/04/25 09:44 QDAY PRN CONSULT Potassium Phos/Sodium Phos 1 packet 02/05/25 21:00 02/06/25 09:25 Naph,[facility] Mbdb 1 Packet (1.5 Gm) PO 03/07/25 20:59 1 packet BID ROBBIE Administration Plan Logan Dye 44M with pmhx significant for HTN, hx of gastric angiodysplasias s/p cautery 12/20/24, GERD, asthma, HLD, 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 #Acute encephalopathy 2/2 #Sepsis, unknown etiology #Elevated lactic acid, improving Patient presented with altered mental status, was unable to give a history but was able to deny or admit symptoms for a review of systems. Patient met severe sepsis criteria on admission with tachycardia and leukocytosis in addition to lactic acid of 10.8, which is evidence of end organ damage due to hypoperfusion. Patient presented with an anion gap of 25 and appeared to be compensating in a respiratory manner appropriate for metabolic acidosis, as VBG showed a pH of 7.55 and a pCO2 of 25. UA 1+ protein, 2+ blood, 54 RBC, 24 WBC, LE+. CK wnl 50, Lactic acid uptrending 2.7 ->3.1, beta hydroxy 0.6, 02/06 ABG 7.47/24//17. CT abdomen pelvis was negative for hydronephrosis or ureteral calculi. CXR unremarkable. UCx and BCx, likely due to recent outpatient antibiotic course. Cocci serology negative. 02/04 Echo showed EF estimated 60-65% The right ventricle is normal in size and systolic function. Normal aortic valve. Trace mitral and trace tricuspid regurgitation NO EVIDENCE OF VEGETATIONS. TDS due to patient lieing supine and non- cooperative EEG was abnormal with diffuse slowing suggestive of diffuse encephalopathy of metabolic, degenerative or vascular origin. No epileptiform discharges noted. Brain MRI negative for acute hemorrhage, mass effect or midline shift, no acute infarct or microvascular white matter change. Source of infection is not identified at this point. Patient's mentation is still not at baseline per family and is worsening. Plan: - Neurology consulted, recs appreciated: IR LP ordered - Continue broad abx cefepime (02/02- ) and vanc (02/02 - ) - Started 1L LR 100 cc/hr for elevated lactic acid - F/u prolactin, ammonia, syphillis #Transaminitis #Coagulopathy On admission, PT elevated 14.6 with INR 1.4, and AST ALT 80/217. AST/ALT initially peaked and downtrended. Not on hepatotoxic home medication and denies alcohol use. Denies RUQ pain. Abdominal ultrasound negative for cholelithiasis or cholecystitis No clear explanation for transaminitis, hyperammonemia, elevated PT and elevated INR at this time, consider clinical picture of severe sepsis with elevated lactic acid. Plan: - CTM LFTs - Avoid hepatotoxic medications - Fluids as above for continued elevated lactic acid #Hypernatremia Patient presented with Na of 146, with gradual increase everyday. Now stable 149 today. Likely 2/2 poor PO intake 2/2 AMS. Low suspicion of neurological cause. Plan: - If Na continues to increase, consider urine lytes - CTM sodium - Fluids as above #GERD Per history taken from the patient's mother Plan: - Continue IV famotidine 20 mg BID #Hypercholesterolemia Per history taken from patient's mother. Patient takes atorvastatin 40 mg p.o. daily at home Plan: - Hold in the presence of transaminitis #Asthma Per patient history gathered from patient's mother. Patient montelukast 10 mg p.o. daily Plan: - No indication for treatment at this time as patient is asymptomatic #Hyperglycemia (Resolved) Fingerstick glucose 237 on arrival. Per patient's mother, he does not have a history of diabetes. 02/03/25 A1c 5.9 Plan: - SSI in place #Hyperthyroidism (Resolved) Thyroxine 13.6 repeat thyroxine 1.18. Consider acute phase thyrotoxicosis reaction over underlying thyroid condition Hospital management: Lines: PIV Diet: Dysphagia 3, NPO after midnight Bowel: None GI prophylaxis: IV famotidine 20 mg BID DVT prophylaxis: SCDs Disposition: tele, pending IR LP tomorrow CODE STATUS: FULL CODE Plan of care discussed with attending Dr. Dailey, and PGY-2 Dr. Scott. Mercedes Yuen, DO PGY-1 Internal Medicine Attending Provider Attestation/Addendum I have examined the patient, reviewed labs and imaging findings, discussed the case with the resident(s), and reviewed entered orders. I agree with the plan of care as outlined in this note. Dr. Ashlie MD
[2025-02-06 16:17] LABS: Reflex Lactate? Y
[2025-02-06 16:18] LABS: Creatine Kinase 50 U/L (34-171)
[2025-02-06 16:50] LABS: Lactic Acid, 3 HR 3.1 mMol/L (0.4-2.0)
[2025-02-06 17:08] LABS: Sodium 149 mMol/L (136-145)
[2025-02-06] MEDS: ONDANSETRON INJ 2 MG/ML INJ 2 ML 4 MG IVP (18:07)
[2025-02-06 18:13] LABS: Ammonia 36 uMol/L (11-32)
--- NOTE | 2025-02-06 18:23 | XR_ITS ---
Examination: Abdomen AP single view Technique: AP portable supine abdomen, single view Exam date and time: February 06, 2025, 1855 hrs. Indications: Abdominal distention this week. Findings: Mild air and stool in the colon There are multiple air distended small bowel loops in the central abdomen Orogastric tube in the stomach but stomach remains air distended Impression: Consider CT scan abdomen pelvis post intravenous contrast follow-up to exclude early small bowel obstruction
--- NOTE | 2025-02-06 18:31 | EKG_ITS ---
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
[2025-02-06 18:34] LABS: INR 1.2 (0.9-1.3); Partial Thromboplastin Time 24.5 Seconds (22.0-36.0); Prothrombin Time 12.6 Seconds (9.0-12.2)
--- NOTE | 2025-02-06 18:42 | XR_ITS ---
Examination: AP chest single view Technique one AP portable semiupright chest single view Date and time: February 06, 2025, 1858 hrs., Comparison February 06, 2025 Indications: Post orogastric tube placement. Findings: Orogastric tube is coiled in the stomach satisfactory position There is still is air distended stomach Normal heart size No aspiration pneumonia Impression: Orogastric tube in the stomach There remains moderately air distended stomach
[2025-02-06] MEDS: SODIUM CHLORIDE 0.9% 1000 ML 1,000 ML 999 ML IV (19:35)
[2025-02-06 19:52] LABS: Lactate (Lactic Acid) 5.2 mMol/L (0.4-2.0)
[2025-02-06] MEDS: SODIUM CHLORIDE 0.9% 1000 ML 1,000 ML 150 ML IV (20:11)
--- NOTE | 2025-02-06 21:53 | PD.RESEVENT ---
Documentation for date of: 02/06/25 Event Note Event Note: Rapid response called: 7:48 PM Reason for Call: Inability to obtain blood pressure reading Upon evaluation, the patient was awake, alert, and hemodynamically stable, though slightly uncomfortable. No signs of distress noted.Rapid Response was mistakenly activated by nursing staff due to difficulty obtaining a blood pressure reading. Per nurse, no acute changes were observed; multiple staff including RT and charge nurse were already present attempting to recheck vitals.No intervention required at this time. Patient remains stable. Continue routine monitoring. Patient seen and assessed under supervision of attending physician Dr.Alhalaibeh Diana Dunlap MD PGY-1, Internal Medicine Please note: this document was transcribed using voice recognition technology; minor inaccuracies may be present.
[2025-02-06 22:47] LABS: Reflex Lactate? Y
[2025-02-06 23:06] LABS: Lactic Acid, 3 HR 4.5 mMol/L (0.4-2.0)
[2025-02-07] VITALS: BP 140/78; PULSE 108; PULSE 111; RESP 20; TEMP 36.3; O2SAT 95
--- NOTE | 2025-02-07 | XR_ITS ---
Examination: Attempted diagnostic lumbar puncture Fluoroscopy AP lumbar spine 5 views Date and time: February 07, 2025, 1138 hours INDICATIONS: Altered mental status this week TECHNIQUE AND FINDINGS: Informed consent provided. Timeout performed. Skin prepped over the lower back and sterile drape applied hand hygiene 1% lidocaine administered for local anesthesia Utilizing fluoroscopic guidance multiple attempts made for diagnostic lumbar puncture Attempts unsuccessful Fluoroscopy 1.1 minute radiation dose 16.26 milligray IMPRESSION: Unsuccessful diagnostic lumbar puncture
[2025-02-07] MEDS: SODIUM CHLORIDE 0.9% 1000 ML 1,000 ML 150 ML IV (02:51)
[2025-02-07 04:00] VITALS: BP 132/78; PULSE 107; PULSE 108; RESP 19; TEMP 36.2; O2SAT 96
[2025-02-07] MEDS: CEFEPIME INJ 2 GM in SODIUM CHLORIDE 0.9% (Popper) 50 ML IV ×3 (05:22→21:12)
[2025-02-07 05:23] LABS: Lactate (Lactic Acid) 2.5 mMol/L (0.4-2.0)
[2025-02-07 05:37] LABS: Basophils # (Auto) 0.0 Thou/mm3 (0.0-0.2); Basophils % (Auto) 1 % (0-2.5); Eosinophils # (Auto) 0.2 Thou/mm3 (0.0-0.5); Eosinophils % (Auto) 3 % (0-10); Hematocrit 35.6 % (41.0-53.0); Hemoglobin 11.8 g/dL (13.5-16.0); Immature Granulocytes Auto 0.05 Thou/mm3 (0.00-0.00); Lymphocytes # (Auto) 3.4 Thou/mm3 (1.0-4.8); Lymphocytes % (Auto) 45 % (10-50); Mean Corpuscular HGB Conc 33.1 g/dl (31.0-37.0); Mean Corpuscular Hemoglobin 31.6 pg (25.0-35.0); Mean Corpuscular Volume 95 fL (80-100); Monocytes # (Auto) 0.3 Thou/mm3 (0.0-0.8); Monocytes % (Auto) 4 % (0-12); Neutrophils # (Auto) 3.6 Thou/mm3 (1.8-7.7); Neutrophils % (Auto) 48 % (37-80); Nucleated Red Blood Cell # 0.00 Thou/mm3 (0.00-0.00); Nucleated Red Blood Cell % 0 /100 WBC (0); Platelet Count 154 Thou/mm3 (140-440); RDW Standard Deviation 48.9 fL (35.1-43.9); Red Blood Count 3.73 Miln/mm3 (4.50-5.90); White Blood Count 7.5 Thou/mm3 (3.8-10.6)
[2025-02-07 05:52] VITALS: BMI 43.0
[2025-02-07] MEDS: DEXTROSE 50%-WATER INJ 50 ML SYRINGE IV (06:11)
[2025-02-07 08:00] VITALS: PULSE 103
[2025-02-07 08:11] LABS: Alanine Aminotransferase 77 U/L (10-49); Albumin, Serum 2.8 gm/dL (3.5-5.0); Aspartate Amino Transferase 40 U/L (0-34); BUN/Creatinine Ratio 17 Ratio (12-20); Bilirubin,Total 0.4 mg/dL (0.3-1.2); Blood Urea Nitrogen 10 mg/dL (9-23); Carbon Dioxide 15.6 mMol/L (20.0-31.0); Creatinine (Component) 0.6 mg/dL (0.6-1.3); Estimated Creatinine Clearance 191.1 mL/min (>60); Glucose 71 mg/dL (74-106); Magnesium 1.5 mg/dL (1.6-2.6); Osmolality,Calculated 300 (275-295); Phosphorous 1.7 mg/dL (2.4-5.1); Potassium 3.4 mMol/L (3.4-5.1); Sodium 153 mMol/L (136-145); eGFR > 60 See Note
[2025-02-07 08:12] LABS: Alkaline Phosphatase 37 U/L (46-116); Anion Gap 12 (7-16); Calcium 6.7 mg/dL (8.3-10.6); Calcium (Corrected) 7.7 mg/dL (8.5-10.1); Chloride 125 mMol/L (98-107)
[2025-02-07 08:13] LABS: Lactate (Lactic Acid) 2.4 mMol/L (0.4-2.0)
[2025-02-07 08:14] LABS: Albumin/Globulin Ratio 1.5 (1.2-2.2); Globulin 1.9 gm/dL (2.3-3.5); Total Protein 4.7 gm/dL (5.7-8.2)
[2025-02-07 08:18] LABS: Reflex Lactate? Y
--- NOTE | 2025-02-07 09:14 | ESPR_ITS ---
<Statement entered by Moo Sawyer MD - 02/07/25 18:26> Patient was seen and evaluated at bedside this morning. No acute overnight events. Patient today more lethargic and less responsive than yesterday. Still no BM, CTA to R/O ischemia vs SBO showed ileus and possible enteritis, but no significant findings for ischemia. Patient's lactic acid continues to be elevated even with IV fluids. Patient developed electrolyte abnormalities with hyperchloremia, hypophosphatemia, hypomagnesemia, and hypernatremia. Source of LA unclear at this time. Consulted nephrology given electrolyte imbalance and GI given continued billous stomach contents seen with LIS of NG tube. Will wait for face CT to R/O mastoiditis vs abscess given poor oral hygiene. Continue D5W at 100cc/hr for total 1 bag. Replete electrolytes as needed. Note reviewed and agree with resident's care plan as documented except as noted above. Case disclosed with attending Dr. Ashlie Sawyer PGY2 Disclaimer: Even though this this note was dictated by speech recognition and even though it was carefully revised there may still be minor errors in brick setter due to voice recognition software. Documentation for date of: 02/07/25 Subjective Subjective Interval history: Patient seen and examined at bedside. Patient continues to be encephalopathic worsening from yesterday, not responding to questions or looking at speaker. Will only follow command of sticking tongue out. Patient is not had a bowel movement since prior to admission. Family reports extensive cancer history as well as younger brother who at age 17 due to possibly BALTAZAR virus. Per chart review, patient has lost 20 kg since last admission. BP 120-140 over high 70s to 90s. Heart rate tachycardic 100-1 20s sinus. WBC 7.5, hemoglobin decrease from 16.9->11.8->13.2. Sodium 153, potassium 3.4, chloride 125, bicarb decreased from 20-15, creatinine 0.6. Lactate continues to stay elevated at two 3.1. Calcium 6.7, repleted. Phosphate 1.7, repleted with K-Phos. Magnesium 1.5, repleted with 2 g IV. AST ALT downtrending from 97/117 to 40/77. Albumin decreased from 3.3 to 2.8. Source of lactic acid still unclear with encephalopathy worsening. Electrolytes now more deranged. IR LP was not able to obtain CSF, will touch base with neurology. CTA AP with contrast showed distended small bowel loops, no SBO but possible ileus vs enterities. Nephrology consulted for persistent hyponatremia as well as electrolyte abnormalities. GI consulted for CTA AP findings Exam Vital Signs Temp Pulse Resp BP Pulse Ox O2 Del Method 97.1 F 107 H 19 132/78 H 96 Room Air 02/07/25 04:00 02/07/25 04:00 02/07/25 04:00 02/07/25 04:00 02/07/25 04:00 02/07/25 04:00 Narrative Exam GENERAL: AOx0, not answer questions or following commands, continues to be more encephalopathic, NG tube in place draining black fluid HEENT: mucous membranes dry, bilateral sclera anicteric, tenderness at L mastoid, +dental caries and front L tooth absent CARDIOVASCULAR: regular rate and rhythm, S1/S2 present, no murmurs appreciated PULMONARY: clear to auscultation bilaterally, no rales/rhonchi/wheezes ABDOMINAL: soft, non-tender, non-distended, no rebound/guarding, bowel sounds present EXTREMITIES: no peripheral edema SKIN: warm and dry, intact, excessive flaky skin on eyebrows and forehead, no wounds NEURO: CN II-XII grossly intact Objective Labs 02/07/25 14:10 02/07/25 14:10 Labs: Laboratory Results - last 24 hr 02/06/25 02/06/25 02/06/25 12:13 13:09 16:43 WBC RBC Hgb Hct MCV MCH MCHC RDW Std Deviation Plt Count Neut % (Auto) Lymph % (Auto) [place] % (Auto) Eos % (Auto) Baso % (Auto) Neut # (Auto) Lymph # (Auto) [place] # (Auto) Eos # (Auto) Baso # (Auto) Immature Gran # (Auto) Absolute Nucleated RBC Immature Gran % Nucleated RBC % PT INR APTT Puncture Site Left Radial ABG pH 7.47 H ABG pCO2 24 L ABG pO2 96 ABG HCO3 17 L ABG O2 Saturation 98 ABG Base Excess -5 L FiO2 21 Sodium 149 H Potassium Chloride Carbon Dioxide Anion Gap BUN Creatinine Estim Creat Clear Calc eGFR BUN/Creatinine Ratio Glucose Calculated Osmolality Lactic Acid 2.7 H 3.1 H Calcium Corrected Calcium Phosphorus Magnesium Total Bilirubin AST ALT Alkaline Phosphatase Ammonia 36 H Total Creatine Kinase 50 D Total Protein Albumin Globulin Albumin/Globulin Ratio Beta-Hydroxybutyrate/Acetoacetate 0.6 H Syphilis Serology Nonreactive 02/06/25 02/06/25 02/06/25 18:01 19:42 22:59 WBC RBC Hgb Hct MCV MCH MCHC RDW Std Deviation Plt Count Neut % (Auto) Lymph % (Auto) [place] % (Auto) Eos % (Auto) Baso % (Auto) Neut # (Auto) Lymph # (Auto) [place] # (Auto) Eos # (Auto) Baso # (Auto) Immature Gran # (Auto) Absolute Nucleated RBC Immature Gran % Nucleated RBC % PT 12.6 H INR 1.2 APTT 24.5 Puncture Site ABG pH ABG pCO2 ABG pO2 ABG HCO3 ABG O2 Saturation ABG Base Excess FiO2 Sodium Potassium Chloride Carbon Dioxide Anion Gap BUN Creatinine Estim Creat Clear Calc eGFR BUN/Creatinine Ratio Glucose Calculated Osmolality Lactic Acid 5.2 H* 4.5 H* Calcium Corrected Calcium Phosphorus Magnesium Total Bilirubin AST ALT Alkaline Phosphatase Ammonia Total Creatine Kinase Total Protein Albumin Globulin Albumin/Globulin Ratio Beta-Hydroxybutyrate/Acetoacetate Syphilis Serology 02/07/25 02/07/25 02/07/25 04:30 05:00 07:50 WBC 7.5 RBC 3.73 L Hgb 11.8 L D Hct 35.6 L D MCV 95 MCH 31.6 MCHC 33.1 RDW Std Deviation 48.9 H Plt Count 154 Neut % (Auto) 48 Lymph % (Auto) 45 [place] % (Auto) 4 Eos % (Auto) 3 Baso % (Auto) 1 Neut # (Auto) 3.6 Lymph # (Auto) 3.4 [place] # (Auto) 0.3 Eos # (Auto) 0.2 Baso # (Auto) 0.0 Immature Gran # (Auto) 0.05 H Absolute Nucleated RBC 0.00 Immature Gran % 1 H Nucleated RBC % 0 PT INR APTT Puncture Site ABG pH ABG pCO2 ABG pO2 ABG HCO3 ABG O2 Saturation ABG Base Excess FiO2 Sodium 153 H Potassium 3.4 D Chloride 125 H* Carbon Dioxide 15.6 L Anion Gap 12 BUN 10 Creatinine 0.6 Estim Creat Clear Calc 191.1 eGFR > 60 BUN/Creatinine Ratio 17 Glucose 71 L Calculated Osmolality 300 H Lactic Acid 2.5 H 2.4 H Calcium 6.7 L* D Corrected Calcium 7.7 L D Phosphorus 1.7 L Magnesium 1.5 L Total Bilirubin 0.4 AST 40 H ALT 77 H Alkaline Phosphatase 37 L D Ammonia Total Creatine Kinase Total Protein 4.7 L Albumin 2.8 L D Globulin 1.9 L Albumin/Globulin Ratio 1.5 Beta-Hydroxybutyrate/Acetoacetate Syphilis Serology ABG Interpretation ABG results: 02/02/25 02/06/25 16:10 12:13 ABG pH 7.47 H ABG pCO2 24 L ABG pO2 96 ABG HCO3 17 L ABG O2 Saturation 98 ABG Base Excess -5 L VBG pH 7.55 VBG pCO2 25 L VBG pO2 113 H VBG Base Excess 1 Quality Measures Quality Measures none Assessment & Plan Assessment Current Active Medications: Generic Name Dose Route Start Last Admin Trade Name Freq PRN Reason Stop Dose Admin Acetaminophen 650 mg 02/02/25 16:12 Acetaminophen 325 Mg Tablet PO 03/04/25 15:11 Q6H PRN Fever >99.9 Dextrose 50 ml 02/02/25 17:28 02/07/25 06:11 Dextrose 50%-Water Inj 50 Ml Syringe IV 03/04/25 17:27 50 ml Q15MIN PRN Administration BG <50 OR BG <70 & pt unresponsive Famotidine 20 mg 02/04/25 09:00 02/06/25 21:12 Famotidine Inj 10 Mg/Ml Vial 2 Ml IVP 03/06/25 08:59 20 mg BID ROBBIE Administration Glucagon 1 mg 02/02/25 17:28 Glucagon Inj 1 Mg Vial IM Q15MIN PRN BG <70, and no IV access Cefepime HCl 2 gm/ Sodium 50 mls @ 100 mls/hr 02/02/25 17:17 02/07/25 05:52 Chloride IV 02/09/25 17:16 Infused Q8HR ROBBIE Infusion Vancomycin HCl 250 mls @ 120 mls/hr 02/06/25 10:00 02/07/25 00:49 Vancomycin/Water 1250 Mg Ivpb IV 02/13/25 09:59 Infused BID@1000,2200 ROBBIE Infusion Protocol Sodium Chloride 1,000 mls @ 150 mls/hr 02/06/25 18:29 02/07/25 02:51 Ns IV 02/07/25 21:08 150 mls/hr .Q6H40M ROBBIE Administration Insulin Human Lispro 0 unit 02/07/25 00:00 02/07/25 06:00 Insulin Lispro (Admelog) 1 Unit/0.01 Ml Unit SC 03/09/25 00:00 Not Given Q6HR [facility] Protocol Lorazepam 1 mg 02/05/25 17:41 02/06/25 09:40 Lorazepam 0.5 Mg Tablet PO 02/10/25 17:40 1 mg X1 PRN Administration Agitation Ondansetron HCl 4 mg 02/02/25 15:17 02/06/25 18:07 Ondansetron Inj 2 Mg/Ml Inj 2 Ml IVP 03/04/25 15:16 4 mg Q6H PRN Administration NAUSEA OR VOMITING Protocol Pharmacy Consult 1 each 02/02/25 09:45 Vancomycin Pharmacy To Dose 1 Each Each IV 03/04/25 09:44 QDAY PRN CONSULT Potassium Phos/Sodium Phos 1 packet 02/05/25 21:00 02/06/25 21:00 [facility] 1 Packet (1.5 Gm) PO 03/07/25 20:59 Not Given BID ROBBIE Plan Logan Dye 44M with pmhx significant for HTN, hx of gastric angiodysplasias s/p cautery 12/20/24, GERD, asthma, HLD, 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 #Acute encephalopathy 2/2 #Elevated lactic acid 2/2 #?Sepsis, unknown etiology #Distended small bowel loops Patient presented with altered mental status, was unable to give a history but was able to deny or admit symptoms for a review of systems. Patient met severe sepsis criteria on admission with tachycardia and leukocytosis in addition to lactic acid of 10.8, which is evidence of end organ damage due to hypoperfusion, however currently no source of infection identified and further differentials as below. Spoke with family who reported younger brother of possible BALTAZAR virus at age 17. Admission VBG showed a pH of 7.55 and a pCO2 of 25. Ammonia mildly elevated 36. Syphillis cocci HIV and hep panel neg. UDS neg, salicylates and acetaminophen neg. UA 1+ protein, 2+ blood, 54 RBC, 24 WBC, LE+. CK wnl 50, beta hydroxy 0.6, 02/06 ABG 7.47/24/96/17. Lactic acid on admission 10.8->6.2->3.8->2.6 but then uptrended 4.1->2.7->5.2->4.5->2.5->3.[address] abdomen pelvis was negative for hydronephrosis or ureteral calculi. CXR unremarkable. UCx and BCx, likely due to recent outpatient antibiotic course. 02/04 Echo showed EF estimated 60-65% The right ventricle is normal in size and systolic function. Normal aortic valve. Trace mitral and trace tricuspid regurgitation NO EVIDENCE OF VEGETATIONS. TDS due to patient lying supine and non- cooperative EEG was abnormal with diffuse slowing suggestive of diffuse encephalopathy of metabolic, degenerative or vascular origin. No epileptiform discharges noted. Brain MRI negative for acute hemorrhage, mass effect or midline shift, no acute infarct or microvascular white matter change. 02/06 Abd XR showed multiple air distended small bowel loops in the central abdomen, orogastric tube in stomach but stomach remains air distended 02/07 CTA with cont shows 4 mm lower pole nonobstructing right renal calculus, no hydronephrosis or ureteral calculi. Normal appendix. Mildly fluid distended small bowel loops, consider ileus, enteritis such as Crohn's disease. No findings diagnostic for ischemic small bowel but clinical correlation is advised. Ddx: Source of elevated lactic acid and/or encephalopathy possibly 2/2 bowel microischemia, small intestinal bacterial overgrowth, UTI, dental abscess as patient family now reports dental pain 3 weeks prior, cefepime s/e, Patient's mentation continues to worsen. Plan: - Neurology consulted, recs appreciated: IR LP today was unable to get fluid - Nephrology consulted for electrolyte abnormalities, recs appreciated - GI consulted for possible ileus vs enteritis per CTA AP, recs appreciated - Continue broad abx cefepime (02/02- ) and vanc (02/02 - ) - Started metronidazole for possible dental infection (02/07 - - s/p 500 mL D5W bolus and start D5W 1L 100cc/hr - F/u CT face wo contrast - F/u lactate, prolactin, thiamine, KOJO, and dsDNA #Electrolyte abnormalities #?Metabolic acidosis with respiratory compensation #Hypernatremia #Hyperchloremia #Hypophosphatemia #Hypomagnesemia #Hypocalcemia, resolved Patient presented with Na of 146, with gradual increase everyday despite D5W. Likely 2/2 poor PO intake 2/2 AMS. Cannot exclude neurological cause given patient is becoming more encephalopathic everyday. Ddx includes small bowel microischemia, RTA, HAGMA with respiratory compensation. Delta Delta calculated -8 with 02/07 labs signifying one of the three following: Mixed HAGMA and NAGMA. Mixed HAGMA with chronic respiratory alkalosis plys hyperchloremic acidosis. HAGMA with preexisting low anion gap state (hypoalbuminemia, paraproteinemia, etc) with likely second. Free water decifit 6.2L. Patient has received cumulative 14L of fluids since admission with recorded output 1575 mL with Guo inserted on 02/06 however some of the fluids were NS. Plan: - F/u Ulytes and repeat UA - F/u PM renal panel - D5W 1L at 100 cc/hr started - Plan for free water flushes once patient is able to tolerate PO1 - Nephrology consulted, recs appreciated - CTM sodium - Fluids as above #Transaminitis, improving #Coagulopathy, improving #Metabolic dysfunction-associated steatotic liver disease #Gallstones On admission, PT elevated 14.6 with INR 1.4, and AST ALT 80/217. AST/ALT initially peaked and downtrended. Not on hepatotoxic home medication and denies alcohol use. Denies RUQ pain. Abdominal ultrasound negative for cholelithiasis or cholecystitis, multiple gallstones, liver 14.5 cm fatty infiltration no focal liver lesions Ddx includes acidotic state with elevated lactic acid impairing coagulation with subsequent liver and tissue damage. Plan: - CTM LFTs - Avoid hepatotoxic medications - Fluids as above for continued elevated lactic acid #GERD Per history taken from the patient's mother Plan: - Continue IV famotidine 20 mg BID #Hypercholesterolemia Per history taken from patient's mother. Patient takes atorvastatin 40 mg p.o. daily at home Plan: - Hold in the presence of transaminitis #Asthma Per patient history gathered from patient's mother. Patient montelukast 10 mg p.o. daily Plan: - No indication for treatment at this time as patient is asymptomatic #Hyperglycemia (Resolved) Fingerstick glucose 237 on arrival. Per patient's mother, he does not have a history of diabetes. 02/03/25 A1c 5.9 Plan: - SSI in place #Hyperthyroidism (Resolved) Thyroxine 13.6 repeat thyroxine 1.18. Consider acute phase thyrotoxicosis reaction over underlying thyroid condition Hospital management: Lines: PIV Diet: NPO Bowel: None GI prophylaxis: IV famotidine 20 mg BID DVT prophylaxis: SCDs Disposition: tele, encephalopathy worsening, pending GI and nephro consult, NG tube still in place CODE STATUS: FULL CODE Plan of care discussed with attending Dr. Dailey, and PGY-2 Dr. Scott. Mercedes Yuen, DO PGY-1 Internal Medicine Attending Provider Attestation/Addendum I have examined the patient, reviewed labs and imaging findings, discussed the case with the resident(s), and reviewed entered orders. I agree with the plan of care as outlined in this note, with these additional summaries/recommendations: Patient and patient's mother seen at bedside. Yesterday evening patient had multiple episodes of emesis which were dark brown in color and concerning for fecal matter. Abdominal x-ray was obtained which revealed multiple air distended small bowel loops in the central abdomen and mild air throughout the colon. Findings concerning for small bowel obstruction and NG tube was placed to low intermittent suction. CT abdomen and pelvis was ordered which is still pending at this time. We will keep patient NPO. If CT abdomen pelvis confirms small bowel obstruction then we will consult general surgery and obtain small bowel series. Lactic acidosis was also significantly elevated overnight which may be due to SBO versus necrosis. Additional imaging pending. Continue IV fluids. Patient continues to be encephalopathic and has undergone an extensive workup. MRI brain and EEG unrevealing. Originally thought to be secondary to infectious etiology from urinary tract infection although no improvement with IV antibiotics. Per mom patient had been declining since last admission and unfortunately may be patient's new baseline. Also possible patient's symptoms are related to small bowel obstruction and lactic acidosis. Nonetheless given the lack of improvement patient will go for lumbar puncture today and we will follow-up results when available. Continue frequent reorientation. Lactic acidosis improving and continue IVF. Severe electrolyte abnormalities present and replacement given, follow-up repeat levels. Patient and patient's mom updated on the plan and in agreement. All questions answered to satisfaction. Please see residents note for additional details and management. Dr. Ashlie MD
--- NOTE | 2025-02-07 09:28 | XR_ITS ---
Examination: CTA abdomen, with intravenous contrast. CTA pelvis, with intravenous contrast. 2-D sagittal and coronal reconstructions. 3-D reconstructions. Date and time of exam: February 07, 2025, 1320 hours INDICATIONS: Abdominal pain and distention this week, dilated small bowel loops on plain abdomen films this week CTDI vol (mgy) 29.5 DLP (MGycm) 1106 Technique: Multiple CTA images, 2.0 mm slice thickness, obtained abdomen, pelvis, with the high-resolution 64 slice scanner. 100 cc Isovue-370 is administered intravenously. Sagittal and coronal 2-D reconstructions are obtained. 3-D reconstructions, angiographic images are obtained. 3-D postprocessing, including vascular maximum intensity projections. Low dose protocols were performed. One or more of the following dose reduction techniques were used; automated exposure control, adjustment of the mA and/or KV according to patient size, use of iterative reconstruction technique. Findings: Orogastric tube in the stomach No visualized liver or splenic lesion Contracted gallbladder No pancreatic or adrenal mass 4 mm lower pole right renal calculus Mildly fluid distended small bowel loops, no air in the bowel wall Normal appendix No bowel obstruction No diverticulitis Contracted urinary bladder with urinary Guo catheter Mild osteopenia IMPRESSION: 4 mm lower pole nonobstructing right renal calculus, no hydronephrosis or ureteral calculi Normal appendix Mildly fluid distended small bowel loops, consider ileus, enteritis such as Crohn's disease No findings diagnostic for ischemic small bowel but clinical correlation is advised
[2025-02-07] MEDS: FAMOTIDINE INJ 10 MG/ML VIAL 2 ML 20 MG IVP ×2 (09:46→21:11)
[2025-02-07 09:52] LABS: Vancomycin,Trough 17.9 mcg/mL (5.0-10.0)
[2025-02-07] MEDS: DEXTROSE 5%-WATER 1,000 ML 250 ML IV (09:56)
[2025-02-07 10:54] LABS: Base Excess, Venous -6 (-3-3); Lactate (Lactic Acid) 3.1 mMol/L (0.4-2.0); O2 Saturation, Venous 95 % (96-97); PCO2, Venous 21 mmHg (36-56); PO2, Venous 71 mmHg (15-58); pH, Venous 7.47 (7.33-7.66)
[2025-02-07] MEDS: VANCOMYCIN/WATER 1250 MG IVPB 250 ML 120 MG IV ×2 (10:57→22:12)
[2025-02-07 11:10] LABS: Reflex Lactate? Y
--- NOTE | 2025-02-07 11:11 | PC.NURSE ---
PATIENT TRANSFER TO IR ACCOMPANIED BY TIGIST DURANT AND KISHORE TEAGUE, PT LETHARGIC AND DISORIENTED.
[2025-02-07 11:36] LABS: Alanine Aminotransferase 86 U/L (10-49); Albumin, Serum 3.2 gm/dL (3.5-5.0); Albumin/Globulin Ratio 1.3 (1.2-2.2); Alkaline Phosphatase 43 U/L (46-116); Anion Gap 13 (7-16); Aspartate Amino Transferase 45 U/L (0-34); BUN/Creatinine Ratio 13 Ratio (12-20); Bilirubin,Total 0.5 mg/dL (0.3-1.2); Blood Urea Nitrogen 9 mg/dL (9-23); Calcium 8.1 mg/dL (8.3-10.6); Calcium (Corrected) 8.7 mg/dL (8.5-10.1); Carbon Dioxide 15.5 mMol/L (20.0-31.0); Chloride 121 mMol/L (98-107); Creatinine (Component) 0.7 mg/dL (0.6-1.3); Estimated Creatinine Clearance 163.8 mL/min (>60); Globulin 2.4 gm/dL (2.3-3.5); Glucose 184 mg/dL (74-106); Osmolality,Calculated 299 (275-295); Potassium 4.0 mMol/L (3.4-5.1); Sodium 149 mMol/L (136-145); Total Protein 5.6 gm/dL (5.7-8.2); eGFR > 60 See Note
--- NOTE | 2025-02-07 12:22 | PC.NURSE ---
DR. EUCEDA MADE AWARE PTS LUMBAR PUNCTURE WAS UNSUCCESSFUL AND PT WILL BE GOING CT SOON A 20 G IV PLACED TO AC. CONTINUE WITH ORDERS.
--- NOTE | 2025-02-07 13:10 | PC.NURSE ---
PATIENT TRANSFER TO CT 1310 LETHARGIC AND DISORIENTED.
[2025-02-07 13:52] LABS: Reflex Lactate? Y
[2025-02-07] MEDS: Magnesium Sulfate 2 GM Ivpb 2 GM/50 ML BAG IV (13:54)
[2025-02-07] MEDS: CALCIUM GLUC/NS 1000MG IVPB 1,000 MG/50 ML BAG 50 MG IV (13:54)
[2025-02-07 14:25] LABS: Lactate (Lactic Acid) 3.1 mMol/L (0.4-2.0)
[2025-02-07] MEDS: POTASSIUM PHOS 22.5 MMOL in SODIUM CHLORIDE 0.9% 500 ML 500 ML 82.778 MMOL IV (14:51)
[2025-02-07 14:55] LABS: Alanine Aminotransferase 84 U/L (10-49); Albumin, Serum 3.2 gm/dL (3.5-5.0); Albumin/Globulin Ratio 1.3 (1.2-2.2); Alkaline Phosphatase 43 U/L (46-116); Anion Gap 13 (7-16); Aspartate Amino Transferase 42 U/L (0-34); BUN/Creatinine Ratio 11 Ratio (12-20); Bilirubin,Total 0.5 mg/dL (0.3-1.2); Blood Urea Nitrogen 9 mg/dL (9-23); Calcium 8.1 mg/dL (8.3-10.6); Calcium (Corrected) 8.7 mg/dL (8.5-10.1); Carbon Dioxide 16.7 mMol/L (20.0-31.0); Chloride 122 mMol/L (98-107); Creatinine (Component) 0.8 mg/dL (0.6-1.3); Estimated Creatinine Clearance 143.3 mL/min (>60); Globulin 2.4 gm/dL (2.3-3.5); Glucose 100 mg/dL (74-106); Magnesium 1.9 mg/dL (1.6-2.6); Osmolality,Calculated 300 (275-295); Phosphorous 1.6 mg/dL (2.4-5.1); Potassium 4.0 mMol/L (3.4-5.1); Sodium 152 mMol/L (136-145); Total Protein 5.6 gm/dL (5.7-8.2); eGFR > 60 See Note
--- NOTE | 2025-02-07 15:46 | PD.RESCONSUL ---
HPI Data of Consult Requesting Physician: Ezekiel Dailey MD Admitting Provider: Javier Baltazar MD Attending Provider: Ezekiel Dailey MD Primary Care Provider: Abdiel Esparza MD Consult Narrative Reason for consult: C/f GI bleed vs ischemic bowel History of present illness: History per family at bedside mother and aunt and primary team. 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 The patient is altered and unable to provide history. He was tachycardic on arrival and was found to have a lactic acid of 10.8 and a leukocytosis of 24.3. Admitted for sepsis with out source. 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 He quit his job a few months ago for unclear reasons. Family denies any developmental delay. He lives at home with his mother and spends most of the time watching television. Family states that he has had significant difficulty eating due to dry mouth and dysphagia. He was recently admitted to the hospital in 12/2024 for dysphagia which was diagnosed and treated with dilation. Pt has medical and is unable to be seen with Dr. Campos outpatient. Despite the esophageal dilatation, pt continued to have dysphagia symptoms and poor po intake. Family reports significant weight loss over the past two months estimated at ~50 lbs. As per chart review, pt has lost about 20kg since last admission. (142 -->122kg). Family notes that patient has poor dentition and was going to see a dentist for a left sided tooth pain that was self limitied but initially was very painful and tender on palpation. Pt has rapidly deteriorated over the past 2 weeks. he was previously able to communicate but became increasingly confused as per family and saying nonsensical things. Per primary team, on 02/06, patient was able to state things like I can eat and say words like hungry however on pt interview and exam on 02/07, pt groaning and spontaneously eye opening Family history is significant for significant maternal side cancers, with pts grandmother dying at age 65 with brain and liver cancer which was rapidly progressing. Pts brother of BALTAZAR infection and renal complications. Social Hx, no drug history reported by family. (utox from 12/2024 and 01/2025 are all negative). Meds: per family pt is not taking any injection medications, no weightloss medications, (per med rec on atorvastatin, asthma medications, omeprazole and zofran prn). Workup thus far Imaging CTAP with Bilateral non-obstructing renal calculi, no hydronephrosis or ureteral calculi CXR with no PNA Abdominal US with cholelithiasis, negative for cholecystitis and Liver 14.5 cm fatty infiltration no focal liver lesions. TTE with no vegitations and EF 60-65%, EEG with no seizure activity recorded and excessive artifact. MRI brain unremarkable LP was attempted but unsuccessful. CT Angio AP with no ischemic small bowel findings, with Mildly fluid distended small bowel loops, consider ileus, enteritis such as Crohn's disease. Labs Blood Cx and Urine Cx negative Lactic Acid elevated 10-->3 Leukocytosis 24-->7.5 ASA level and APAP level wnl on admission syphilis negative hiv negative cc:: cc: Ezekiel Dailey MD Exam Vital Signs Temp Pulse Resp BP Pulse Ox O2 Del Method 97.1 F 107 H 19 132/78 H 96 Room Air 02/07/25 04:00 02/07/25 04:00 02/07/25 04:00 02/07/25 04:00 02/07/25 04:00 02/07/25 04:00 Narrative Exam GENERAL: no acute distress, AAO x0, HEENT: Head AT/ NC. Mucous membranes dry, tongue is dry (intermittently mouth breathing). R pupil sluggish and dilated ?fixed, Left pupil with sluggish constriction to light. sclera anicteric, no ulcerations in the oral mucosa, poor dentition, with several missing teeth. RU gums with errythema, several black dental caries noted, fissured dorsal tongue, no glossitis noted. NG tube in place with 700cc coffee ground output, Anterior forhead is fluctuant and edematous along frontal sinus. NECK: Supple, no lymphadenopathy, no carotid bruits. Neck skin without collar of thickened skin noted. CARDIOVASCULAR: RRR. Normal S1/S2, No m/r/g. No pitting edema of bilateral LEs. RESPIRATORY: CTAB. No wheezing, rhonchi, crackles. intermittently gasping and snoring GASTROINTESTINAL: Abdomen soft and obese, groans and opens eyes intensly when abdomen is palpated, but exam is nonfocal with no guarding or rebound tenderness noted. MUSCULOSKELETAL:? No cyanosis or edema, no visible joint swelling. NEUROLOGICAL: spontaneous eye opening, does respond to sternal rub, somnolent, ?whether he can follow commands, unable to track with eyes, but may have squeezed hand when commanded. PSYCHIATRIC: Awake and alert, not agitated, normal mood and affect. SKIN: some nix angiomas on the anterior chest, posterior was not examined. some decreased hair on the medial and lateral aspects of shins, but hair extends to the proximal legs. Results Labs 02/07/25 14:10 02/07/25 14:10 Labs: Short CBC 02/07/25 Range/Units 04:30 WBC 7.5 (3.8-10.6) Thou/mm3 Hgb 11.8 L D (13.5-16.0) g/dL Hct 35.6 L D (41.0-53.0) % Plt Count 154 (140-440) Thou/mm3 BMP 02/06/25 02/07/25 02/07/25 16:43 04:30 10:45 Sodium 149 H 153 H 149 H Potassium 3.4 D 4.0 D Chloride 125 H* 121 H* Carbon Dioxide 15.6 L 15.5 L BUN 10 9 Creatinine 0.6 0.7 Glucose 71 L 184 H D Calcium 6.7 L* D 8.1 L 02/07/25 14:10 Sodium 152 H Potassium 4.0 Chloride 122 H* Carbon Dioxide 16.7 L BUN 9 Creatinine 0.8 Glucose 100 D Calcium 8.1 L Cardiac Enzymes 02/06/25 Range/Units 13:09 Total Creatine Kinase 50 D (34-171) U/L Liver Function 02/07/25 02/07/25 02/07/25 Range/Units 04:30 10:45 14:10 Total Bilirubin 0.4 0.5 0.5 (0.3-1.2) mg/dL AST 40 H 45 H 42 H (0-34) U/L ALT 77 H 86 H 84 H (10-49) U/L Alkaline Phosphatase 37 L D 43 L 43 L (46-116) U/L Albumin 2.8 L D 3.2 L 3.2 L (3.5-5.0) gm/dL ABG Interpretation ABG results: 02/02/25 02/06/25 02/07/25 16:10 12:13 10:45 ABG pH 7.47 H ABG pCO2 24 L ABG pO2 96 ABG HCO3 17 L ABG O2 Saturation 98 ABG Base Excess -5 L VBG pH 7.55 7.47 VBG pCO2 25 L 21 L VBG pO2 113 H 71 H VBG Base Excess 1 -6 L Quality Measures Quality Measures VTE prophylaxis Medications Home Medications and Allergies Home Medications ?Medication ?Instructions ?Recorded ?Confirmed ?Type atorvastatin 20 mg tablet 40 mg PO DAILY 12/19/24 02/03/25 History fluticasone propionate 50 2 spray intranasal DAILY 12/19/24 02/03/25 History mcg/actuation nasal spray,suspension ipratropium bromide 42 mcg (0.06 2 spray intranasal BID 12/19/24 02/03/25 History %) nasal spray montelukast 10 mg tablet 10 mg PO DAILY 12/19/24 02/03/25 History omeprazole 40 mg capsule,delayed 40 mg PO DAILY 12/19/24 02/03/25 History release Allergies Allergy/AdvReac Type Severity Reaction Status Date / Time No Known Allergies Allergy Verified 02/02/25 08:14 Visit Medications Acetaminophen (Acetaminophen 325 Mg Tablet) 650 mg PO Q6H PRN PRN Reason: Fever >99.9 Stop: 03/04/25 15:11 Dextrose (Dextrose 50%-Water Inj 50 Ml Syringe) 50 ml IV Q15MIN PRN PRN Reason: BG <50 OR BG <70 & pt unresponsive Stop: 03/04/25 17:27 Last Admin: 02/07/25 06:11 Dose: 50 ml Famotidine (Famotidine Inj 10 Mg/Ml Vial 2 Ml) 20 mg IVP BID [facility] Stop: 03/06/25 08:59 Last Admin: 02/07/25 09:46 Dose: 20 mg Glucagon (Glucagon Inj 1 Mg Vial) 1 mg IM Q15MIN PRN PRN Reason: BG <70, and no IV access Cefepime HCl 2 gm/ Sodium (Chloride) 50 mls @ 100 mls/hr IV Q8HR ROBBIE Stop: 02/09/25 17:16 Last Admin: 02/07/25 14:51 Dose: 100 mls/hr Vancomycin HCl (Vancomycin/Water 1250 Mg Ivpb) 250 mls @ 120 mls/hr IV BID@1000,2200 ROBBIE; Protocol Stop: 02/13/25 09:59 Last Admin: 02/07/25 10:57 Dose: 120 mls/hr Potassium Phosphate 22.5 mmol/ (Sodium Chloride) 507.5 mls @ 82.778 mls/hr IV X1 ONE Stop: 02/07/25 18:37 Last Admin: 02/07/25 14:51 Dose: 82.778 mls/hr Insulin Human Lispro (Insulin Lispro (Admelog) 1 Unit/0.01 Ml Unit) 0 unit SC Q6HR ROBBIE; Protocol Stop: 03/09/25 00:00 Last Admin: 02/07/25 12:36 Dose: Not Given Ondansetron HCl (Ondansetron Inj 2 Mg/Ml Inj 2 Ml) 4 mg IVP Q6H PRN; Protocol PRN Reason: NAUSEA OR VOMITING Stop: 03/04/25 15:16 Last Admin: 02/06/25 18:07 Dose: 4 mg Pharmacy Consult (Vancomycin Pharmacy To Dose 1 Each Each) 1 each IV QDAY PRN PRN Reason: CONSULT Stop: 03/04/25 09:44 Potassium Phos/Sodium Phos (Naph,[facility] Mbdb 1 Packet (1.5 Gm)) 1 packet PO BID ROBBIE On Hold: 02/07/25 10:47 Stop: 03/07/25 20:59 Last Admin: 02/07/25 09:15 Dose: Not Given Discontinued Medications Acetaminophen (Acetaminophen 325 Mg Tablet) 650 mg PO Q6H PRN PRN Reason: Fever >101.5 Stop: 03/04/25 15:11 Enoxaparin Sodium (Enoxaparin Sod Inj 40 Mg/0.4 Ml Syringe) 40 mg SC QDAY ROBBIE Stop: 02/16/25 15:29 Last Admin: 02/02/25 17:26 Dose: Not Given Lactated Ringer's (Lactated Ringers) 1,000 mls @ 999 mls/hr IV .Q1H1M ONE Stop: 02/02/25 09:20 Last Infusion: 02/02/25 10:00 Dose: Infused Lactated Ringer's (Lactated Ringers) 1,000 mls @ 999 mls/hr IV .Q1H1M ONE Stop: 02/02/25 10:04 Last Infusion: 02/02/25 10:59 Dose: Infused Ceftriaxone Sodium/Dextrose (Rocephin/D5w 1gm Iv Premix) 1 gm in 50 mls @ 100 mls/hr IV X1 ONE Stop: 02/02/25 09:33 Last Admin: 02/02/25 09:44 Dose: Not Given Potassium Chloride (Kcl Ivpb) 10 meq in 100 mls @ 100 mls/hr IV Q1H ROBBIE Stop: 02/02/25 13:04 Last Infusion: 02/02/25 14:04 Dose: Infused Piperacillin Sod/Tazobactam (Sod 4.5 gm/ Sodium Chloride) 100 mls @ 200 mls/hr IV X1 ONE; Protocol Stop: 02/02/25 10:12 Last Infusion: 02/02/25 10:59 Dose: Infused Vancomycin/Sodium Chloride (Vancomycin/Ns 1 Gm Ivpb) 200 mls @ 120 mls/hr IV X1 ONE Stop: 02/02/25 11:24 Last Infusion: 02/02/25 12:38 Dose: Infused Lactated Ringer's (Lactated Ringers) 1,000 mls @ 125 mls/hr IV .Q8H ROBBIE Stop: 03/04/25 10:18 Last Admin: 02/03/25 09:22 Dose: 125 mls/hr Lactated Ringer's (Lactated Ringers) 1,000 mls @ 999 mls/hr IV .Q1H1M ONE Stop: 02/02/25 12:55 Last Infusion: 02/02/25 14:05 Dose: Infused Vancomycin/Sodium Chloride (Vancomycin/Ns 1 Gm Ivpb) 200 mls @ 120 mls/hr IV X1 ONE Stop: 02/02/25 23:39 Last Infusion: 02/02/25 23:30 Dose: Infused Lactated Ringer's (Lactated Ringers) 1,000 mls @ 999 mls/hr IV .Q1H1M ONE Stop: 02/02/25 16:26 Last Infusion: 02/02/25 18:44 Dose: Infused Ceftriaxone Sodium 2 gm/ (Sodium Chloride) 50 mls @ 100 mls/hr IV QDAY@1400 ROBBIE Stop: 02/09/25 16:14 Last Infusion: 02/02/25 17:32 Dose: Infused Norepinephrine Bitartrate (Levophed In Ns 16mg/250ml) 16 mg in 250 mls @ 5.932 mls/hr IV .Q24H PRN; Protocol PRN Reason: PER protocol Stop: 03/04/25 18:40 Norepinephrine Bitartrate (Levophed In Ns 16mg/250ml) 16 mg in 250 mls @ 5.932 mls/hr IV .Q24H PRN; Protocol PRN Reason: PER PROTOCOL Stop: 03/04/25 18:47 Acetaminophen (Ofirmev Inj) 1,000 mg in 100 mls @ 250 mls/hr IV Q6HR ONE Stop: 02/02/25 21:34 Last Infusion: 02/02/25 21:57 Dose: Infused Vancomycin/Sodium Chloride (Vancomycin/Ns 1 Gm Ivpb) 200 mls @ 120 mls/hr IV Q8HR ROBBIE; Protocol Stop: 02/10/25 08:59 Last Admin: 02/04/25 07:15 Dose: Not Given Potassium Phosphate 22.5 mmol/ (Sodium Chloride) 507.5 mls @ 82.778 mls/hr IV X1 ONE Stop: 02/03/25 15:23 Last Admin: 02/03/25 10:21 Dose: 82.778 mls/hr Lactated Ringer's (Lactated Ringers) 500 mls @ 999 mls/hr IV .Q31M ONE Stop: 02/03/25 10:47 Last Admin: 02/03/25 10:46 Dose: Not Given Lactated Ringer's (Lactated Ringers) 500 mls @ 125 mls/hr IV .Q4H ONE Stop: 02/03/25 14:17 Last Admin: 02/03/25 10:46 Dose: Not Given Lactated Ringer's (Lactated Ringers) 500 mls @ 999 mls/hr IV .Q31M ONE Stop: 02/03/25 11:00 Last Admin: 02/03/25 10:31 Dose: 999 mls/hr Lactated Ringer's (Lactated Ringers) 500 mls @ 125 mls/hr IV .Q4H ONE Stop: 02/03/25 14:59 Last Admin: 02/03/25 10:31 Dose: 125 mls/hr Lactated Ringer's (Lactated Ringers) 1,000 mls @ 999 mls/hr IV .Q1H1M ONE Stop: 02/03/25 15:21 Last Admin: 02/03/25 14:39 Dose: 999 mls/hr Lactated Ringer's (Lactated Ringers) 1,000 mls @ 75 mls/hr IV .[id number] ROBBIE Stop: 03/05/25 16:58 Last Admin: 02/04/25 07:16 Dose: 75 mls/hr Vancomycin/Sodium Chloride (Vancomycin/Ns 1 Gm Ivpb) 200 mls @ 120 mls/hr IV BID@1000,2200 ROBBIE; Protocol Stop: 02/11/25 09:59 Last Infusion: 02/06/25 01:53 Dose: Infused Dextrose/Sodium Chloride (D5-1/2ns) 1,000 mls @ 100 mls/hr IV .Q10H ONE Stop: 02/04/25 18:51 Last Admin: 02/04/25 09:56 Dose: Not Given Dextrose/Sodium Chloride (D5-1/2ns) 1,000 mls @ 125 mls/hr IV .Q8H ONE Stop: 02/04/25 16:51 Last Admin: 02/04/25 09:31 Dose: 125 mls/hr Potassium Chloride (Kcl Ivpb) 10 meq in 100 mls @ 100 mls/hr IV Q1H [facility] Stop: 02/05/25 11:49 Last Infusion: 02/05/25 16:00 Dose: Infused Magnesium Sulfate (Magnesium Sulfate Ivpb) 2 gm in 50 mls @ 25 mls/hr IV X1 ONE Stop: 02/05/25 09:49 Last Infusion: 02/05/25 11:40 Dose: Infused Dextrose (D5w) 1,000 mls @ 150 mls/hr IV .Q6H40M ONE Stop: 02/06/25 15:36 Last Admin: 02/06/25 09:25 Dose: 150 mls/hr Lactated Ringer's (Lactated Ringers) 1,000 mls @ 125 mls/hr IV .Q8H ROBBIE Stop: 02/06/25 18:49 Last Admin: 02/06/25 12:58 Dose: 125 mls/hr Sodium Chloride (Ns) 1,000 mls @ 150 mls/hr IV .Q6H40M ROBBIE Stop: 02/07/25 21:08 Last Admin: 02/07/25 02:51 Dose: 150 mls/hr Sodium Chloride (Ns) 1,000 mls @ 999 mls/hr IV .Q1H1M ONE Stop: 02/06/25 19:31 Last Infusion: 02/06/25 20:36 Dose: Infused Dextrose (D5w) 500 mls @ 250 mls/hr IV .Q2H ROBBIE Stop: 02/07/25 11:29 Dextrose (D5w) 1,000 mls @ 250 mls/hr IV .Q4H ROBBIE Stop: 02/07/25 13:29 Last Admin: 02/07/25 09:56 Dose: 250 mls/hr Calcium Gluconate/Sodium Chloride (Calcium Gluc/Ns 1000mg Ivpb) 1,000 mg in 50 mls @ 50 mls/hr IV X1 ONE Stop: 02/07/25 11:45 Last Admin: 02/07/25 13:54 Dose: 50 mls/hr Magnesium Sulfate (Magnesium Sulfate Ivpb) 2 gm in 50 mls @ 25 mls/hr IV X1 ONE Stop: 02/07/25 12:47 Last Admin: 02/07/25 13:54 Dose: 25 mls/hr Insulin Human Lispro (Insulin Lispro (Admelog) 1 Unit/0.01 Ml Unit) 0 unit SC AC ROBBIE; Protocol Stop: 03/05/25 07:29 Last Admin: 02/04/25 07:51 Dose: Not Given Insulin Human Lispro (Insulin Lispro (Admelog) 1 Unit/0.01 Ml Unit) 0 unit SC Q6HR ROBBIE; Protocol Stop: 03/06/25 11:59 Insulin Human Lispro (Insulin Lispro (Admelog) 1 Unit/0.01 Ml Unit) 0 unit SC ACHS ROBBIE; Protocol Stop: 03/06/25 11:29 Last Admin: 02/06/25 17:57 Dose: Not Given Lactulose (Lactulose Syrup 20 Gm/30 Ml Udc) 30 gm PO X1 ONE; Protocol Stop: 02/02/25 16:22 Last Admin: 02/02/25 18:41 Dose: 30 gm Lactulose (Lactulose Syrup 20 Gm/30 Ml Udc) 20 gm PO X1 ONE; Protocol Stop: 02/04/25 11:11 Last Admin: 02/04/25 11:35 Dose: 20 gm Levetiracetam (Levetiracetam Inj 100 Mg/Ml Vial 5ml) 1,000 mg IVP X1 ONE Stop: 02/02/25 07:54 Last Admin: 02/02/25 08:37 Dose: 1,000 mg Lorazepam (Lorazepam 0.5 Mg Tablet) 1 mg PO X1 PRN PRN Reason: Agitation Stop: 02/10/25 17:40 Last Admin: 02/06/25 09:40 Dose: 1 mg Metoclopramide HCl (Metoclopramide Inj 5 Mg/Ml Vial 2 Ml) 5 mg IVP X1 ONE; Protocol Stop: 02/06/25 18:33 Last Admin: 02/06/25 20:45 Dose: Not Given Midazolam HCl (Midazolam Inj 1 Mg/Ml Vial 2 Ml) 1 mg IVP X1 ONE Stop: 02/06/25 11:09 Last Admin: 02/06/25 11:05 Dose: 1 mg Pantoprazole Sodium (Pantoprazole Inj 40 Mg Vial) 40 mg IVP Q12HR ROBBIE Stop: 03/04/25 20:59 Last Admin: 02/02/25 19:11 Dose: 40 mg Pantoprazole Sodium (Pantoprazole Inj 40 Mg Vial) 40 mg IVP QDAY ROBBIE Stop: 03/05/25 08:59 Last Admin: 02/03/25 09:25 Dose: 40 mg Potassium Chloride (Potassium Chloride 20 Meq Tabcr) 40 meq PO X1 ONE Stop: 02/02/25 09:05 Last Admin: 02/02/25 09:57 Dose: 40 meq Potassium Chloride (Potassium Chloride 20 Meq Tabcr) 40 meq PO X1 ONE Stop: 02/03/25 07:43 Last Admin: 02/03/25 09:14 Dose: Not Given Potassium Phos/Sodium Phos (Naph,[facility] Mbdb 1 Packet (1.5 Gm)) 1 packet PO X1 ONE Stop: 02/03/25 07:45 Last Admin: 02/03/25 09:14 Dose: Not Given Potassium Phos/Sodium Phos (Naph,[facility] Mbdb 1 Packet (1.5 Gm)) 2 packet PO X1 ONE Stop: 02/04/25 11:21 Last Admin: 02/04/25 11:34 Dose: 2 packet Potassium Phos/Sodium Phos (Naph,[facility] Mbdb 1 Packet (1.5 Gm)) 1 packet PO X1 ONE Stop: 02/05/25 07:51 Last Admin: 02/05/25 09:35 Dose: 1 packet Terbinafine HCl (Terbinafine Hcl Cr 1% 12 Gm Tube) 0 gm TOP X1 ONE Stop: 02/03/25 19:13 Last Admin: 02/04/25 05:18 Dose: Not Given Assessment & Plan Plan Mr Patel is a 44 year old gentleman with hx of hypertension, GERD, allergies, asthma, hypercholesterolemia, childhood epilepsy (on phenobarb as a child) who presented with sepsis with unknown source and lactic acidosis who had recent admission for dysphagia that was treated with esophageal dilation but without improvement in ability to tolerate PO who has had significant weight loss since prior admission (20kg wt loss) who on admission has had progressive worsening of encephalopathy and electrolyte disturbances who has not had a BM in 5+ days who then had episode coffee ground emesis 02/[address] angio AP with concern for sbo vs ileus and no ischemic small bowel findings on imaging now with NG tube in place with 700cc coffee ground output in the past 24 hrs. Upper GI bleed SBO vs Enteritis Obstapation Anorexia and significant weight loss Malnutrition Suspect vitamin deficiencies (consider wernike vs korsakoff encephalopathy) Hx of Esophageal stricture s/p dilation in 12/2024 concern for refeeding syndrome given electrolyte derrangements below pt has not had good po intake for the past few months. with family unable to recall the last time he ate well. He has had significant weight loss likely 2/2 the stricture of his esophagus which limited his ability to tolerate PO. Pt was started on d5 per primary team, which raises concern for possible refeeding syndrome given the sodium retention seen on labs and the hypokalemia. lactic acidosis persists. and hypophos persists. suspect the intracellular shifts 2/2 glucose given and shift from catabolism to anabolism. consider auto immune conditions vs malignancy given significant family history. autoimmune conditions may have contributed to dysphagia symtoms in addition to the stricture. suspect wernike vs korsakoff encephalopathy, neuro workup thus far has been negative, unable to obtain LP, cocci negative, syphilis negative, and HIV negative. Pt does have some nystagmus of the R eye. pupils are sluggish bilaterally. 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 Campos and Dr. Deyanira Treviño MD PGY1 Attending Provider Attestation/Addendum patient evaluated and seen labs reviewed and x-rays reviewed Although patient has coffee ground lavage through the NGT there is no significant drop in the hemoglobin hematocrit Continue NGT suction and once the output is decreased we will consider doing an upper endoscopy No evidence of mesenteric ischemia on the current imaging studies however lactic acidosis and metabolic acidosis is worrisome Recommend surgical consultation I and my team will follow the patient closely Hold off the endoscopy at the moment Thank you very much for the opportunity to participate in the care of this patient
[2025-02-07 16:00] VITALS: PULSE 100
[2025-02-07 16:08] LABS: Basophils # (Auto) 0.1 Thou/mm3 (0.0-0.2); Basophils % (Auto) 1 % (0-2.5); Eosinophils # (Auto) 0.3 Thou/mm3 (0.0-0.5); Eosinophils % (Auto) 3 % (0-10); Hematocrit 39.8 % (41.0-53.0); Hemoglobin 13.2 g/dL (13.5-16.0); Immature Granulocytes Auto 0.06 Thou/mm3 (0.00-0.00); Lymphocytes # (Auto) 3.6 Thou/mm3 (1.0-4.8); Lymphocytes % (Auto) 38 % (10-50); Mean Corpuscular HGB Conc 33.2 g/dl (31.0-37.0); Mean Corpuscular Hemoglobin 31.2 pg (25.0-35.0); Mean Corpuscular Volume 94 fL (80-100); Monocytes # (Auto) 0.4 Thou/mm3 (0.0-0.8); Monocytes % (Auto) 4 % (0-12); Neutrophils # (Auto) 5.0 Thou/mm3 (1.8-7.7); Neutrophils % (Auto) 54 % (37-80); Nucleated Red Blood Cell # 0.00 Thou/mm3 (0.00-0.00); Nucleated Red Blood Cell % 0 /100 WBC (0); Platelet Count 165 Thou/mm3 (140-440); RDW Standard Deviation 48.6 fL (35.1-43.9); Red Blood Count 4.23 Miln/mm3 (4.50-5.90); White Blood Count 9.3 Thou/mm3 (3.8-10.6)
[2025-02-07 16:17] LABS: Lactate (Lactic Acid) 3.1 mMol/L (0.4-2.0)
--- NOTE | 2025-02-07 16:32 | XR_ITS ---
Examination: CT middle inner ear, without contrast. 2-D coronal reconstructions. 2-D sagittal reconstructions. Date and time of exam: February 07, 2025, 1705 hrs. Indications: Encephalopathy, clinical diagnosis encephalitis CTDI: vol (mGy): 18.4 DLP: (mGycm):18 Technique: Multiple 1.0 mm axial sections of the middle inner ears bilaterally. High-resolution 64 slice scanner utilized. 2-D coronal reconstructions 2-D sagittal reconstructions Low dose protocols were performed. One or more of the following dose reduction techniques were used; automated exposure control, adjustment of the mA and/or KV according to patient size, use of iterative reconstruction technique. Findings: Axial sections of the right demonstrate a reduced mastoid aeration. Jugular fossa and carotid canal do not appear remarkable. No deformity of the ossicles. Porus acusticus internus does not exhibit erosion. Cochlear apparatus unremarkable. Semicircular canals normal. External auditory canal open. Coronal reconstructions demonstrate no erosion of the scutum. No soft tissue mass in the attic or Prussak's space is seen. Ossicular mass intact. Axial sections of the left demonstrate significantly reduced mastoid aeration. Jugular fossa and carotid canal do not appear remarkable. No deformity of the ossicles. Porus acusticus internus does not exhibit erosion. Cochlear apparatus unremarkable. Semicircular canals normal. External auditory canal open Coronal reconstructions demonstrate no erosion of the scutum. No soft tissue mass in the attic or Prussak's space is seen. Ossicular mass intact. Roof of the mastoid air cells appear intact bilaterally. Impression: Significant bilateral chronic mastoiditis Negative for acute mastoiditis Negative for otitis media or acquired cholesteatoma
[2025-02-07] MEDS: DEXTROSE 5%-WATER 500 ML 100 ML IV (16:36)
--- NOTE | 2025-02-07 16:57 | PC.NURSE ---
PATIENT TRANSFER TO CT LETHARGIC AND DISORIENTED.
[2025-02-07] MEDS: metroNIDAZOLE/NS 500 MG IVPB 500 MG/100 ML BAG 200 MG IV ×2 (16:58→21:13)
--- NOTE | 2025-02-07 17:02 | PC.NURSE ---
PATIENT TRANSFER TO CT [facility]IA [facility] LETHARGIC AND DISORIENTED.
--- NOTE | 2025-02-07 17:10 | PC.NURSE ---
PATIENT BACK IN HIS ROOM LETHARGIC AND DISORIENTED. HE IS RESTING CHEST RISE AND FALL IN NO DISTRESS. FAMILY AT BEDSIDE
[2025-02-07 17:21] LABS: Reflex Lactate? Y
[2025-02-07 17:28] LABS: Reflex Lactate? Y
[2025-02-07 17:31] LABS: Carboxyhemoglobin 4.4 % (0.5-1.5)
[2025-02-07] MEDS: THIAMINE INJ 100 MG/ML VIAL 2 ML IVP (17:47)
--- NOTE | 2025-02-07 17:56 | PD.NEPHCONS ---
History of Present Illness Data of Consult Consult date: 02/07/25 Requesting Physician: Ezekiel Dailey MD Primary Care Provider: Abdiel Esparza MD Consult Narrative Reason for consult: Metabolic acidosis History of present illness: Chart review done and spoke to primary care team. Mr Dye is a 44-year-old gentleman with a past medical history of hypertension, dyslipidemia, reflux, asthma, epilepsy (took phenobarbital 10 years ago), allergies was brought to the emergency department with altered mental status. Patient was altered in the ER and unable to give any history. As per the chart the patient was tachycardic tand was found to have a lactic acid of 10.8 with a white count of 24. Patient was admitted with a diagnosis of sepsis of unknown source. In the last 3 months he has been declining significantly. Last admission to the hospital was December 2024 for dysphagia and had a dilation by Dr. Campos. Patient continues to have symptoms of dysphagia. During this admission he was noted to have 40 pound weight loss and significant altered mental status. Patient was seen by neurology-CT brain negative. UA did not show any activity. LP was supposed to be done yesterday but unable to. Patient was seen by GI. could not get significant history as patient seems to be very sleepy. He has extensive workup done during this admission-CT abdomen showed nonobstructing renal calculi with no hydronephrosis. Chest x-ray negative. Abdominal ultrasound showed gallstones with no cholecystitis. Also has fatty liver. Echocardiogram showed ejection fraction 60%. EEG no seizure activity. MRI brain negative. CTA abdomen showed no ischemia. Lumbar puncture attempted but unsuccessful. Patient going for repeat LP possibly today with IR. 02/07/2025 patient currently seen in telemetry. Labs showed blood pressure 121/89, heart rate 116. Sleepy. White count 7.3, hemoglobin 11.8, platelets 154. Coags negative. ABG yesterday showed pH 7.47, pCO2 74, HCO3 17. carboxyhemoglobin 4.4. Sodium 153, potassium 3.4, chloride 125, bicarbonate 15.6, creatinine 0.6, lactic acid 4.5, calcium 7.7, phosphorus 1.7, magnesium 1.5, LFTs elevated, albumin 2.8 urinalysis and urine lites pending is nonreactive cocci negative hep panel negative HIV negative cc:: cc: Ezekiel Dailey MD Review of Systems Review of Systems Narrative Review of Systems: Limited due to his mentation. Patient has NG tube to suction. Past Medical History Past Medical History NEUROLOGIC: Positive Seizures CARDIAC: Positive Cardiac Disorders and Hypercholesterolemia; Negative Congestive Heart Failure RESPIRATORY: Positive Respiratory Disorders (asthma) and Asthma; Negative Chronic Obstructive Pulmonary Disease (COPD) GASTROINTESTINAL: Positive Gastroesophageal Reflux Disease GENITOURINARY: Positive Renal Disease (kidney stones) ENDOCRINE: Negative Diabetes Mellitus Type 1 or Diabetes Mellitus Type 2 HEMATOLOGIC: Negative Sickle Cell Disease OTHER HISTORY: Negative Blood Transfusions or Anesthesia Reactions Social History SMOKING STATUS: Never smoker SUBSTANCE USE: does not use Meds Home Medications and Allergies Home Medications ?Medication ?Instructions ?Recorded ?Confirmed ?Type atorvastatin 20 mg tablet 40 mg PO DAILY 12/19/24 02/03/25 History fluticasone propionate 50 2 spray intranasal DAILY 12/19/24 02/03/25 History mcg/actuation nasal spray,suspension ipratropium bromide 42 mcg (0.06 2 spray intranasal BID 12/19/24 02/03/25 History %) nasal spray montelukast 10 mg tablet 10 mg PO DAILY 12/19/24 02/03/25 History omeprazole 40 mg capsule,delayed 40 mg PO DAILY 12/19/24 02/03/25 History release Allergies Allergy/AdvReac Type Severity Reaction Status Date / Time No Known Allergies Allergy Verified 02/02/25 08:14 Exam Vital Signs Temp Pulse Resp BP Pulse Ox O2 Del Method 35.9 C L 112 H 20 119/97 H 95 Room Air 02/07/25 20:00 02/07/25 20:00 02/07/25 20:00 02/07/25 20:00 02/07/25 20:00 02/07/25 20:00 Results Labs 02/08/25 05:35 02/08/25 17:51 Labs: Short CBC 02/07/25 02/07/25 Range/Units 04:30 14:10 WBC 7.5 9.3 (3.8-10.6) Thou/mm3 Hgb 11.8 L D 13.2 L (13.5-16.0) g/dL Hct 35.6 L D 39.8 L (41.0-53.0) % Plt Count 154 165 (140-440) Thou/mm3 BMP 02/07/25 02/07/25 02/07/25 04:30 10:45 14:10 Sodium 153 H 149 H 152 H Potassium 3.4 D 4.0 D 4.0 Chloride 125 H* 121 H* 122 H* Carbon Dioxide 15.6 L 15.5 L 16.7 L BUN 10 9 9 Creatinine 0.6 0.7 0.8 Glucose 71 L 184 H D 100 D Calcium 6.7 L* D 8.1 L 8.1 L 02/07/25 19:10 Sodium 151 H Potassium 4.5 D Chloride 121 H* Carbon Dioxide 14.6 L* BUN 6 L Creatinine 0.7 Glucose 91 Calcium 8.9 Liver Function 02/07/25 02/07/25 02/07/25 Range/Units 04:30 10:45 14:10 Total Bilirubin 0.4 0.5 0.5 (0.3-1.2) mg/dL AST 40 H 45 H 42 H (0-34) U/L ALT 77 H 86 H 84 H (10-49) U/L Alkaline Phosphatase 37 L D 43 L 43 L (46-116) U/L Albumin 2.8 L D 3.2 L 3.2 L (3.5-5.0) gm/dL 02/07/25 Range/Units 19:10 Total Bilirubin (0.3-1.2) mg/dL AST (0-34) U/L ALT (10-49) U/L Alkaline Phosphatase (46-116) U/L Albumin 4.0 D (3.5-5.0) gm/dL ABG Interpretation ABG results: 02/02/25 02/06/25 02/07/25 16:10 12:13 10:45 ABG pH 7.47 H ABG pCO2 24 L ABG pO2 96 ABG HCO3 17 L ABG O2 Saturation 98 ABG Base Excess -5 L VBG pH 7.55 7.47 VBG pCO2 25 L 21 L VBG pO2 113 H 71 H VBG Base Excess 1 -6 L Assessment & Plan Assessment and plan (1) Electrolyte imbalance: Status: Acute Assessment and plan: Patient has significant electrolyte imbalance-hypernatremia, hyperchloremia, non-anion gap metabolic acidosis, hypophosphatemia, hypomagnesemia, hypocalcemia. Not on any medications which can cause these. All these can be seen in partial central DI versus proximal RTA. Primary team suspecting refeeding syndrome. Currently on thiamine, pyridoxine. Added bicarbonate. Replace electrolytes. (2) Altered mental status: Status: Acute Assessment and plan: So far all the workup seems to be negative. Not sure if there is any role for IVIG. Neurology to decide. Myasthenia workup pending (3) Encephalopathy acute: Status: Acute Assessment and plan: Workup in progress (4) Dysphagia: Status: Acute Assessment and plan: Patient has NG tube to suction. Additional Assessment & Plan Additional Plan: Thank you Ezekiel for allowing me to participate in the care of Mr. Dye.
[2025-02-07 19:21] LABS: Lactic Acid, 3 HR 2.5 mMol/L (0.4-2.0)
[2025-02-07 20:00] VITALS: BP 119/97; PULSE 110; PULSE 112; RESP 20; TEMP 35.9; O2SAT 95
[2025-02-07 21:08] LABS: Albumin, Serum 4.0 gm/dL (3.5-5.0); Anion Gap 15 (7-16); BUN/Creatinine Ratio 9 Ratio (12-20); Blood Urea Nitrogen 6 mg/dL (9-23); Calcium 8.9 mg/dL (8.3-10.6); Calcium (Corrected) 8.9 mg/dL (8.5-10.1); Chloride 121 mMol/L (98-107); Creatinine (Component) 0.7 mg/dL (0.6-1.3); Estimated Creatinine Clearance 163.8 mL/min (>60); Glucose 91 mg/dL (74-106); Osmolality,Calculated 297 (275-295); Phosphorous 2.5 mg/dL (2.4-5.1); Potassium 4.5 mMol/L (3.4-5.1); Sodium 151 mMol/L (136-145); eGFR > 60 See Note
[2025-02-07 21:11] LABS: Carbon Dioxide 14.6 mMol/L (20.0-31.0)
[2025-02-07] MEDS: Sodium Bicarb Inj 8.4% SYR 50 ML SYRINGE IV (22:12)
--- NOTE | 2025-02-07 22:18 | PD.RESPRO ---
Documentation for date of: 02/07/25 Subjective Subjective Interval history: Patient examined at bedside. Yesterday he had episode of light brown-colored hematemesis. There was concern for SBO therefore patient started on NG tube for suction. Mother was at bedside and he stated that his mentation has not improved and on physical exam he remains somnolent. Responds minimally to sternal rub. Withdraws to painful stimuli. LP was unsuccessful today. Will reattempt tomorrow. Ordered MG workup to further evaluate as a possible cause for AMS. Exam Vital Signs Temp Pulse Resp BP Pulse Ox O2 Del Method 96.7 F L 112 H 20 119/97 H 95 Room Air 02/07/25 20:00 02/07/25 20:00 02/07/25 20:00 02/07/25 20:00 02/07/25 20:00 02/07/25 20:00 Narrative Exam General: Middle age male, obese, somnolent HEENT: NCAT, No JVD noted. Mucosa moist. Pupils are equal and reactive to light bilaterally, NG tube in place on LIS Cardiovascular: Normal S1 and S2. Regular rate and rhythm. Respiratory: Lungs are clear to auscultation bilaterally. No wheezing or crackles heard. Abdomen: Soft, nontender, distended, normal bowel sounds. Skin: Warm to touch, dry, no rashes noted Musculoskeletal: No gross injuries. No pitting edema Neuro: Markedly somnolent, unable to asses neuro status. Arouses to pain and sternal rub. Objective Labs 02/07/25 14:10 02/07/25 19:10 Labs: Laboratory Results - last 24 hr 02/06/25 02/07/25 02/07/25 22:59 04:30 05:00 WBC 7.5 RBC 3.73 L Hgb 11.8 L D Hct 35.6 L D MCV 95 MCH 31.6 MCHC 33.1 RDW Std Deviation 48.9 H Plt Count 154 Neut % (Auto) 48 Lymph % (Auto) 45 [place] % (Auto) 4 Eos % (Auto) 3 Baso % (Auto) 1 Neut # (Auto) 3.6 Lymph # (Auto) 3.4 [place] # (Auto) 0.3 Eos # (Auto) 0.2 Baso # (Auto) 0.0 Immature Gran # (Auto) 0.05 H Absolute Nucleated RBC 0.00 Immature Gran % 1 H Nucleated RBC % 0 VBG pH VBG pCO2 VBG pO2 VBG O2 Sat (Barb) VBG Base Excess Carboxyhemoglobin Sodium 153 H Potassium 3.4 D Chloride 125 H* Carbon Dioxide 15.6 L Anion Gap 12 BUN 10 Creatinine 0.6 Estim Creat Clear Calc 191.1 eGFR > 60 BUN/Creatinine Ratio 17 Glucose 71 L Calculated Osmolality 300 H Lactic Acid 4.5 H* 2.5 H Calcium 6.7 L* D Corrected Calcium 7.7 L D Phosphorus 1.7 L Magnesium 1.5 L Total Bilirubin 0.4 AST 40 H ALT 77 H Alkaline Phosphatase 37 L D Total Protein 4.7 L Albumin 2.8 L D Globulin 1.9 L Albumin/Globulin Ratio 1.5 Vancomycin Trough 02/07/25 02/07/25 02/07/25 07:50 08:30 10:45 WBC RBC Hgb Hct MCV MCH MCHC RDW Std Deviation Plt Count Neut % (Auto) Lymph % (Auto) [place] % (Auto) Eos % (Auto) Baso % (Auto) Neut # (Auto) Lymph # (Auto) [place] # (Auto) Eos # (Auto) Baso # (Auto) Immature Gran # (Auto) Absolute Nucleated RBC Immature Gran % Nucleated RBC % VBG pH 7.47 VBG pCO2 21 L VBG pO2 71 H VBG O2 Sat (Barb) 95 L VBG Base Excess -6 L Carboxyhemoglobin Sodium 149 H Potassium 4.0 D Chloride 121 H* Carbon Dioxide 15.5 L Anion Gap 13 BUN 9 Creatinine 0.7 Estim Creat Clear Calc 163.8 eGFR > 60 BUN/Creatinine Ratio 13 Glucose 184 H D Calculated Osmolality 299 H Lactic Acid 2.4 H 3.1 H Calcium 8.1 L Corrected Calcium 8.7 Phosphorus Magnesium Total Bilirubin 0.5 AST 45 H ALT 86 H Alkaline Phosphatase 43 L Total Protein 5.6 L Albumin 3.2 L Globulin 2.4 Albumin/Globulin Ratio 1.3 Vancomycin Trough 17.9 H 02/07/25 02/07/25 02/07/25 14:10 16:10 19:10 WBC 9.3 RBC 4.23 L Hgb 13.2 L Hct 39.8 L MCV 94 MCH 31.2 MCHC 33.2 RDW Std Deviation 48.6 H Plt Count 165 Neut % (Auto) 54 Lymph % (Auto) 38 [place] % (Auto) 4 Eos % (Auto) 3 Baso % (Auto) 1 Neut # (Auto) 5.0 Lymph # (Auto) 3.6 [place] # (Auto) 0.4 Eos # (Auto) 0.3 Baso # (Auto) 0.1 Immature Gran # (Auto) 0.06 H Absolute Nucleated RBC 0.00 Immature Gran % 1 H Nucleated RBC % 0 VBG pH VBG pCO2 VBG pO2 VBG O2 Sat (Barb) VBG Base Excess Carboxyhemoglobin 4.4 H Sodium 152 H 151 H Potassium 4.0 4.5 D Chloride 122 H* 121 H* Carbon Dioxide 16.7 L 14.6 L* Anion Gap 13 15 BUN 9 6 L Creatinine 0.8 0.7 Estim Creat Clear Calc 143.3 163.8 eGFR > 60 > 60 BUN/Creatinine Ratio 11 L 9 L Glucose 100 D 91 Calculated Osmolality 300 H 297 H Lactic Acid 3.1 H 3.1 H 2.5 H Calcium 8.1 L 8.9 Corrected Calcium 8.7 8.9 Phosphorus 1.6 L 2.5 Magnesium 1.9 Total Bilirubin 0.5 AST 42 H ALT 84 H Alkaline Phosphatase 43 L Total Protein 5.6 L Albumin 3.2 L 4.0 D Globulin 2.4 Albumin/Globulin Ratio 1.3 Vancomycin Trough ABG Interpretation ABG results: 02/02/25 02/06/25 02/07/25 16:10 12:13 10:45 ABG pH 7.47 H ABG pCO2 24 L ABG pO2 96 ABG HCO3 17 L ABG O2 Saturation 98 ABG Base Excess -5 L VBG pH 7.55 7.47 VBG pCO2 25 L 21 L VBG pO2 113 H 71 H VBG Base Excess 1 -6 L Quality Measures Quality Measures VTE prophylaxis Assessment & Plan Assessment Current Active Medications: Generic Name Dose Route Start Last Admin Trade Name Freq PRN Reason Stop Dose Admin Acetaminophen 650 mg 02/02/25 16:12 Acetaminophen 325 Mg Tablet PO 03/04/25 15:11 Q6H PRN Fever >99.9 Citric Acid/Sodium Citrate 30 ml 02/08/25 09:00 Citric Acid/Sodium Citr 15 Ml Udc (Bicitra) PO 03/10/25 08:59 BID ROBBIE Dextrose 50 ml 02/02/25 17:28 02/07/25 06:11 Dextrose 50%-Water Inj 50 Ml Syringe IV 03/04/25 17:27 50 ml Q15MIN PRN Administration BG <50 OR BG <70 & pt unresponsive Famotidine 20 mg 02/04/25 09:00 02/07/25 21:11 Famotidine Inj 10 Mg/Ml Vial 2 Ml IVP 03/06/25 08:59 20 mg BID ROBBIE Administration Glucagon 1 mg 02/02/25 17:28 Glucagon Inj 1 Mg Vial IM Q15MIN PRN BG <70, and no IV access Cefepime HCl 2 gm/ Sodium 50 mls @ 100 mls/hr 02/02/25 17:17 02/07/25 21:12 Chloride IV 02/09/25 17:16 100 mls/hr Q8HR ROBBIE Administration Vancomycin HCl 250 mls @ 120 mls/hr 02/06/25 10:00 02/07/25 22:12 Vancomycin/Water 1250 Mg Ivpb IV 02/13/25 09:59 120 mls/hr BID@1000,2200 ROBBIE Administration Protocol Metronidazole 500 mg in 100 mls @ 200 mls/hr 02/07/25 16:24 02/07/25 21:13 Flagyl 500 Mg Iv IV 02/14/25 16:23 200 mls/hr Q8HR ROBBIE Administration Insulin Human Lispro 0 unit 02/07/25 00:00 02/07/25 19:54 Insulin Lispro (Admelog) 1 Unit/0.01 Ml Unit SC 03/09/25 00:00 Not Given Q6HR [facility] Protocol Ondansetron HCl 4 mg 02/02/25 15:17 02/06/25 18:07 Ondansetron Inj 2 Mg/Ml Inj 2 Ml IVP 03/04/25 15:16 4 mg Q6H PRN Administration NAUSEA OR VOMITING Protocol Pharmacy Consult 1 each 02/02/25 09:45 Vancomycin Pharmacy To Dose 1 Each Each IV 03/04/25 09:44 QDAY PRN CONSULT Potassium Phos/Sodium Phos 1 packet 02/05/25 21:00 02/07/25 09:15 [facility] 1 Packet (1.5 Gm) PO 03/07/25 20:59 Not Given On Hold: 02/07/25 10:47 BID ROBBIE Pyridoxine HCl 100 mg 02/07/25 17:15 02/07/25 17:49 Pyridoxine Inj 100 Mg/Ml Vial IM 03/09/25 17:14 100 mg QDAY ROBBIE Administration Thiamine HCl 100 mg 02/07/25 17:15 02/07/25 17:47 Thiamine Inj 100 Mg/Ml Vial 2 Ml IVP 03/09/25 17:14 100 mg QDAY ROBBIE Administration Plan Summary: Logan Dye is a 44-year-old male with a past medical history of hypertension, GERD, allergies, asthma, hypercholesterolemia, 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 He was admitted for severe sepsis. #Acute encephalopathy #UTI (Ruled out) Patient presented with altered mental status, poor historian. anion gap of 25 and appeared to be compensating in a respiratory manner appropriate for metabolic acidosis, as VBG showed a pH of 7.55 and a pCO2 of 25 Patient denied dysuria, urine positive for 1+ protein, 2+ blood, 54 RBC, 24 white blood cells, leukocyte esterase positive CT abdomen pelvis was negative for hydronephrosis or ureteral calculi Urine and blood cultures negative, likely due to recent outpatient antibiotic course, Cocci serology negative EEG was nondiagnostic. No evidence of seizure-like activity. Brain MRI Negative for acute hemorrhage or acute infarct. -consider LP following results -Cefepime 2 g IV every 8 hours -Vancomycin -Echocardiography pending -MG workup including acetylcholine receptors and [facility] antibodies are pending -possilbe repeat LP tomorrow #Hypernatremia #Transaminitis #Elevated PT #Hyperammonemia (Resolved) #Elevated INR (Resolved) #Hyperthyroidism (Resolved) #Hyperglycemia (Resolved) #GERD #Hypercholesterolemia #Asthma #Acute anion gap metabolic acidosis (Resolved) Primary care team to manage above conditions and ongoing care needs. The patient's management plan was discussed with my attending physician Dr. Broderick. Amanda Turner, PGY-2 Attending Provider Attestation/Addendum Personally have seen and examined the patient at the bedside and agreed with resident findings, assessment and plan of care. Patient's persistent mental status changes with failed lumbar puncture attempted by interventional radiology, negative brain MRI for structural changes. Will attempt LP again tomorrow at the bedside. Agree with antibiotics for now, follow-up with echocardiogram report. Ordered acetylcholine receptor antibodies: Binding, blocking, modulating and musk to look for secondary causes for bulbar weakness.
[2025-02-07 23:14] LABS: Lactate (Lactic Acid) 2.0 mMol/L (0.4-2.0)
[2025-02-07 23:34] LABS: Magnesium 2.4 mg/dL (1.6-2.6)
[2025-02-08] VITALS (7 sets, daily range): BP systolic 100–145; BP diastolic 69–99; PULSE 113–121; RESP 12–20; TEMP 35.8–36.5; O2SAT 96–98; BMI 43.0
[2025-02-08] MEDS: metroNIDAZOLE/NS 500 MG IVPB 500 MG/100 ML BAG 200 MG IV ×3 (05:07→21:58)
[2025-02-08] MEDS: CEFEPIME INJ 2 GM in SODIUM CHLORIDE 0.9% (Popper) 50 ML IV ×3 (05:07→21:58)
[2025-02-08 05:54] LABS: Basophils # (Auto) 0.0 Thou/mm3 (0.0-0.2); Basophils % (Auto) 0 % (0-2.5); Eosinophils # (Auto) 0.5 Thou/mm3 (0.0-0.5); Eosinophils % (Auto) 5 % (0-10); Hematocrit 35.7 % (41.0-53.0); Hemoglobin 11.9 g/dL (13.5-16.0); Immature Granulocytes Auto 0.05 Thou/mm3 (0.00-0.00); Lymphocytes # (Auto) 2.9 Thou/mm3 (1.0-4.8); Lymphocytes % (Auto) 31 % (10-50); Mean Corpuscular HGB Conc 33.3 g/dl (31.0-37.0); Mean Corpuscular Hemoglobin 31.2 pg (25.0-35.0); Mean Corpuscular Volume 94 fL (80-100); Monocytes # (Auto) 0.5 Thou/mm3 (0.0-0.8); Monocytes % (Auto) 5 % (0-12); Neutrophils # (Auto) 5.4 Thou/mm3 (1.8-7.7); Neutrophils % (Auto) 58 % (37-80); Nucleated Red Blood Cell # 0.00 Thou/mm3 (0.00-0.00); Nucleated Red Blood Cell % 0 /100 WBC (0); Platelet Count 147 Thou/mm3 (140-440); RDW Standard Deviation 49.1 fL (35.1-43.9); Red Blood Count 3.82 Miln/mm3 (4.50-5.90); White Blood Count 9.3 Thou/mm3 (3.8-10.6)
[2025-02-08 06:34] LABS: Alanine Aminotransferase 75 U/L (10-49); Albumin, Serum 3.1 gm/dL (3.5-5.0); Albumin/Globulin Ratio 1.4 (1.2-2.2); Alkaline Phosphatase 40 U/L (46-116); Anion Gap 12 (7-16); Aspartate Amino Transferase 45 U/L (0-34); BUN/Creatinine Ratio 13 Ratio (12-20); Bilirubin,Total 0.4 mg/dL (0.3-1.2); Blood Urea Nitrogen 10 mg/dL (9-23); Calcium 8.1 mg/dL (8.3-10.6); Calcium (Corrected) 8.8 mg/dL (8.5-10.1); Carbon Dioxide 19.8 mMol/L (20.0-31.0); Chloride 123 mMol/L (98-107); Creatinine (Component) 0.8 mg/dL (0.6-1.3); Estimated Creatinine Clearance 143.3 mL/min (>60); Globulin 2.2 gm/dL (2.3-3.5); Glucose 64 mg/dL (74-106); Magnesium 2.3 mg/dL (1.6-2.6); Osmolality,Calculated 304 (275-295); Phosphorous 2.9 mg/dL (2.4-5.1); Potassium 4.5 mMol/L (3.4-5.1); Sodium 155 mMol/L (136-145); Total Protein 5.3 gm/dL (5.7-8.2); eGFR > 60 See Note
--- NOTE | 2025-02-08 08:00 | EKG_ITS ---
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
[2025-02-08] MEDS: FAMOTIDINE INJ 10 MG/ML VIAL 2 ML 20 MG IVP ×2 (08:17→20:21)
[2025-02-08] MEDS: THIAMINE INJ 100 MG/ML VIAL 2 ML IVP ×2 (08:17→20:20)
[2025-02-08] MEDS: DEXTROSE 5%-WATER 1,000 ML 100 ML IV (08:18)
[2025-02-08] MEDS: VANCOMYCIN/WATER 1250 MG IVPB 250 ML 120 MG IV (09:23)
--- NOTE | 2025-02-08 09:26 | PD.NEPHPROG ---
Documentation for date of: 02/08/25 Subjective Subjective Interval history: Chart review done and spoke to primary care team. Mr Dye is a 44-year-old gentleman with a past medical history of hypertension, dyslipidemia, reflux, asthma, epilepsy (took phenobarbital 10 years ago), allergies was brought to the emergency department with altered mental status. Patient was altered in the ER and unable to give any history. As per the chart the patient was tachycardic tand was found to have a lactic acid of 10.8 with a white count of 24. Patient was admitted with a diagnosis of sepsis of unknown source. In the last 3 months he has been declining significantly. Last admission to the hospital was December 2024 for dysphagia and had a dilation by Dr. Campos. Patient continues to have symptoms of dysphagia. During this admission he was noted to have 40 pound weight loss and significant altered mental status. Patient was seen by neurology-CT brain negative. UA did not show any activity. LP was supposed to be done yesterday but unable to. Patient was seen by GI. could not get significant history as patient seems to be very sleepy. He has extensive workup done during this admission-CT abdomen showed nonobstructing renal calculi with no hydronephrosis. Chest x-ray negative. Abdominal ultrasound showed gallstones with no cholecystitis. Also has fatty liver. Echocardiogram showed ejection fraction 60%. EEG no seizure activity. MRI brain negative. CTA abdomen showed no ischemia. Lumbar puncture attempted but unsuccessful. Patient going for repeat LP possibly today with IR. 02/07/2025 patient currently seen in telemetry. Labs showed blood pressure 121/89, heart rate 116. Sleepy. White count 7.3, hemoglobin 11.8, platelets 154. Coags negative. ABG yesterday showed pH 7.47, pCO2 74, HCO3 17. carboxyhemoglobin 4.4. Sodium 153, potassium 3.4, chloride 125, bicarbonate 15.6, creatinine 0.6, lactic acid 4.5, calcium 7.7, phosphorus 1.7, magnesium 1.5, LFTs elevated, albumin 2.8 urinalysis and urine lites pending is nonreactive cocci negative hep panel negative HIV negative 02/08/2025 patient currently seen in telemetry today still with NG tube suction. More alert and awake and able to converse with me today. Started p.o. Bicitra. UrinalysisShowed pH of 5.0, specific gravity 1032. Urine lytes positive for anion gap. Review of Systems Review of Systems Narrative Review of Systems: Limited although more alert and awake than yesterday. Denies any chest pain or abdominal pain. No diarrhea. Exam Vital Signs Temp Pulse Resp BP Pulse Ox O2 Del Method 35.9 C L 114 H 16 106/77 98 Room Air 02/08/25 08:00 02/08/25 08:00 02/08/25 08:00 02/08/25 08:00 02/08/25 08:00 02/08/25 08:00 Narrative Exam GENERAL APPEARANCE: Patient seems to be comfortable, adequately hydrated and nourished. NG tube to suction HEENT: EOMI, PERRLA NECK: Neck supple, no JVD or bruit CARDIOVASCULAR: Heart regular, no murmurs LUNGS/CHEST: Chest clear to auscultation. No rales, rhonchi, wheezing ABDOMEN: Soft, nontender, nondistended. No masses. Normal bowel sounds. EXTREMITIES: No edema, clubbing or cyanosis. SKIN: Skin exam normal without any rashes MUSCULOSKELETAL: in bed NEUROLOGICAL : Slow in response. More alert and awake Objective Labs 02/08/25 05:35 02/08/25 17:51 Labs: Laboratory Results - last 24 hr 02/07/25 02/07/25 02/07/25 08:30 10:45 14:10 WBC 9.3 RBC 4.23 L Hgb 13.2 L Hct 39.8 L MCV 94 MCH 31.2 MCHC 33.2 RDW Std Deviation 48.6 H Plt Count 165 Neut % (Auto) 54 Lymph % (Auto) 38 [place] % (Auto) 4 Eos % (Auto) 3 Baso % (Auto) 1 Neut # (Auto) 5.0 Lymph # (Auto) 3.6 [place] # (Auto) 0.4 Eos # (Auto) 0.3 Baso # (Auto) 0.1 Immature Gran # (Auto) 0.06 H Absolute Nucleated RBC 0.00 Immature Gran % 1 H Nucleated RBC % 0 VBG pH 7.47 VBG pCO2 21 L VBG pO2 71 H VBG O2 Sat (Barb) 95 L VBG Base Excess -6 L Carboxyhemoglobin Sodium 149 H 152 H Potassium 4.0 D 4.0 Chloride 121 H* 122 H* Carbon Dioxide 15.5 L 16.7 L Anion Gap 13 13 BUN 9 9 Creatinine 0.7 0.8 Estim Creat Clear Calc 163.8 143.3 eGFR > 60 > 60 BUN/Creatinine Ratio 13 11 L Glucose 184 H D 100 D Calculated Osmolality 299 H 300 H Lactic Acid 3.1 H 3.1 H Calcium 8.1 L 8.1 L Corrected Calcium 8.7 8.7 Phosphorus 1.6 L Magnesium 1.9 Total Bilirubin 0.5 0.5 AST 45 H 42 H ALT 86 H 84 H Alkaline Phosphatase 43 L 43 L Total Protein 5.6 L 5.6 L Albumin 3.2 L 3.2 L Globulin 2.4 2.4 Albumin/Globulin Ratio 1.3 1.3 Vancomycin Trough 17.9 H 02/07/25 02/07/25 02/07/25 16:10 19:10 23:06 WBC RBC Hgb Hct MCV MCH MCHC RDW Std Deviation Plt Count Neut % (Auto) Lymph % (Auto) [place] % (Auto) Eos % (Auto) Baso % (Auto) Neut # (Auto) Lymph # (Auto) [place] # (Auto) Eos # (Auto) Baso # (Auto) Immature Gran # (Auto) Absolute Nucleated RBC Immature Gran % Nucleated RBC % VBG pH VBG pCO2 VBG pO2 VBG O2 Sat (Barb) VBG Base Excess Carboxyhemoglobin 4.4 H Sodium 151 H Potassium 4.5 D Chloride 121 H* Carbon Dioxide 14.6 L* Anion Gap 15 BUN 6 L Creatinine 0.7 Estim Creat Clear Calc 163.8 eGFR > 60 BUN/Creatinine Ratio 9 L Glucose 91 Calculated Osmolality 297 H Lactic Acid 3.1 H 2.5 H 2.0 Calcium 8.9 Corrected Calcium 8.9 Phosphorus 2.5 Magnesium 2.4 Total Bilirubin AST ALT Alkaline Phosphatase Total Protein Albumin 4.0 D Globulin Albumin/Globulin Ratio Vancomycin Trough 02/08/25 05:35 WBC 9.3 RBC 3.82 L Hgb 11.9 L Hct 35.7 L MCV 94 MCH 31.2 MCHC 33.3 RDW Std Deviation 49.1 H Plt Count 147 Neut % (Auto) 58 Lymph % (Auto) 31 [place] % (Auto) 5 Eos % (Auto) 5 Baso % (Auto) 0 Neut # (Auto) 5.4 Lymph # (Auto) 2.9 [place] # (Auto) 0.5 Eos # (Auto) 0.5 Baso # (Auto) 0.0 Immature Gran # (Auto) 0.05 H Absolute Nucleated RBC 0.00 Immature Gran % 1 H Nucleated RBC % 0 VBG pH VBG pCO2 VBG pO2 VBG O2 Sat (Barb) VBG Base Excess Carboxyhemoglobin Sodium 155 H Potassium 4.5 Chloride 123 H* Carbon Dioxide 19.8 L Anion Gap 12 BUN 10 Creatinine 0.8 Estim Creat Clear Calc 143.3 eGFR > 60 BUN/Creatinine Ratio 13 Glucose 64 L Calculated Osmolality 304 H Lactic Acid Calcium 8.1 L Corrected Calcium 8.8 Phosphorus 2.9 Magnesium 2.3 Total Bilirubin 0.4 AST 45 H ALT 75 H Alkaline Phosphatase 40 L Total Protein 5.3 L Albumin 3.1 L D Globulin 2.2 L Albumin/Globulin Ratio 1.4 Vancomycin Trough ABG Interpretation ABG results: 02/02/25 02/06/25 02/07/25 16:10 12:13 10:45 ABG pH 7.47 H ABG pCO2 24 L ABG pO2 96 ABG HCO3 17 L ABG O2 Saturation 98 ABG Base Excess -5 L VBG pH 7.55 7.47 VBG pCO2 25 L 21 L VBG pO2 113 H 71 H VBG Base Excess 1 -6 L Assessment & Plan Assessment and plan (1) Altered mental status: Status: Acute Assessment and plan: So far all the workup seems to be negative. Not sure if there is any role for IVIG. Neurology to decide. Myasthenia workup pending (2) Electrolyte imbalance: Status: Acute Assessment and plan: Patient has significant electrolyte imbalance-hypernatremia, hyperchloremia, non-anion gap metabolic acidosis, hypophosphatemia, hypomagnesemia, hypocalcemia. Not on any medications which can cause these. All these can be seen in partial central DI versus proximal RTA. Primary team suspecting refeeding syndrome. Currently on thiamine, pyridoxine. Added bicarbonate. Replace electrolytes. (3) Encephalopathy acute: Status: Acute Assessment and plan: Workup in progress (4) Dysphagia: Status: Acute Assessment and plan: Patient has NG tube to suction. Additional Assessment & Plan Additional Plan: Thank you Ezekiel for allowing me to participate in the care of Mr. Dye. Quality - progress note Quality Measures Quality Measures: VTE prophylaxis Reason for Continued Stay Reason for Continued Stay: further monitoring
[2025-02-08 10:48] LABS: Sodium 153 mMol/L (136-145)
--- NOTE | 2025-02-08 14:10 | ESPR_ITS ---
<Statement entered by Moo Sawyer MD - 02/08/25 17:07> Patient was seen and evaluated at bedside this morning. No acute overnight events. This morning patient was a lot more responsive and engaged. He was able to tell us his name and that he wasn't in pain. He was following all commands therefore his restraints were discontinued. Patient's lactic acid also improved to 2. He was started on thiamine IV twice daily. Did Dulcolax suppository to see if patient passes a bowel movement if patient does pass a bowel movement will DC NG tube. Nephrology recommended starting desmopressin given that patient was net -2.6 L and also recommended continuing D5W with sodium checks Q8. GI will likely do EGD once patient is more stable. Will continue with cefepime and Flagyl, discontinue vancomycin given MRSA nares negative. Possible LP today by neurology. Note reviewed and agree with resident's care plan as documented except as noted above. Case disclosed with attending Dr. Ashlie Sawyer PGY2 Disclaimer: Even though this this note was dictated by speech recognition and even though it was carefully revised there may still be minor errors in multi punch operator due to voice recognition Documentation for date of: 02/08/25 Subjective Subjective Interval history: Overnight, PM renal panel showed bicarb 14.6, 1 amp of bicarb given, and lactate downtrended from 2.5 to 2.0. Patient seen and examined at bedside. Patient is speaking in full sentences today and oriented x1 to person only. Is not able to call any recent events and consistently speaks of his brother Eduard only. Denies any current bodily pain. BP fluctuant ranging from 100-140/70-90. Telemetry reviewed sinus tachycardia 110s to 120s. Hemoglobin decreased from 13.2 to 11.9. Sodium still elevated 155. Potassium 4.5. Chloride 123 bicarb increased from 14-19.8. Phosphorus 2.9, mag 2.3, AST LT stable 45/75. CT orbit/face showed chronic bilateral mastoiditis. Per neuro, considering repeat LP, will reassess as patient mental status has improved. Per GI, continue thiamine and pyridoxine, patient consult and EGD prior to discharge iso black NG suctioned fluid. Per nephro, D5W at 120 cc/hr with q8h sodium checks, goal to decrease sodium by 10-12 mEq over 24 hours, decrease rate accordingly if patient exceeds goal. Anticipate to start Bicitra twice daily and free oral water flushes once NG tube removed. Gave Dulcolax suppository and following bowel movement will consider removing NG tube. Discontinue vancomycin to de-escalate antibiotics. Discontinue soft restraints. PT ordered. Exam Vital Signs Temp Pulse Resp BP Pulse Ox O2 Del Method 96.8 F 121 H 19 120/88 H 97 Room Air 02/08/25 12:00 02/08/25 12:00 02/08/25 12:00 02/08/25 12:00 02/08/25 12:00 02/08/25 12:00 Narrative Exam GENERAL: AOx1 to name only, following commands, improvement of encephalopathy, speaking in sentences with pauses, poor memory, NG tube in place draining black fluid HEENT: mucous membranes dry, bilateral sclera anicteric, tenderness at L mastoid, +dental caries and front L tooth absent CARDIOVASCULAR: regular rate and rhythm, S1/S2 present, no murmurs appreciated PULMONARY: clear to auscultation bilaterally, no rales/rhonchi/wheezes ABDOMINAL: soft, non-tender, non-distended, no rebound/guarding, bowel sounds present EXTREMITIES: no peripheral edema SKIN: warm and dry, intact, no wounds NEURO: CN II-XII grossly intact Objective Labs 02/09/25 05:25 02/09/25 05:25 Labs: Laboratory Results - last 24 hr 02/07/25 02/07/25 02/07/25 14:10 16:10 19:10 WBC 9.3 RBC 4.23 L Hgb 13.2 L Hct 39.8 L MCV 94 MCH 31.2 MCHC 33.2 RDW Std Deviation 48.6 H Plt Count 165 Neut % (Auto) 54 Lymph % (Auto) 38 Stone % (Auto) 4 Eos % (Auto) 3 Baso % (Auto) 1 Neut # (Auto) 5.0 Lymph # (Auto) 3.6 Stone # (Auto) 0.4 Eos # (Auto) 0.3 Baso # (Auto) 0.1 Immature Gran # (Auto) 0.06 H Absolute Nucleated RBC 0.00 Immature Gran % 1 H Nucleated RBC % 0 Carboxyhemoglobin 4.4 H Sodium 152 H 151 H Potassium 4.0 4.5 D Chloride 122 H* 121 H* Carbon Dioxide 16.7 L 14.6 L* Anion Gap 13 15 BUN 9 6 L Creatinine 0.8 0.7 Estim Creat Clear Calc 143.3 163.8 eGFR > 60 > 60 BUN/Creatinine Ratio 11 L 9 L Glucose 100 D 91 Calculated Osmolality 300 H 297 H Lactic Acid 3.1 H 3.1 H 2.5 H Calcium 8.1 L 8.9 Corrected Calcium 8.7 8.9 Phosphorus 1.6 L 2.5 Magnesium 1.9 Total Bilirubin 0.5 AST 42 H ALT 84 H Alkaline Phosphatase 43 L Total Protein 5.6 L Albumin 3.2 L 4.0 D Globulin 2.4 Albumin/Globulin Ratio 1.3 02/07/25 02/08/25 02/08/25 23:06 05:35 10:25 WBC 9.3 RBC 3.82 L Hgb 11.9 L Hct 35.7 L MCV 94 MCH 31.2 MCHC 33.3 RDW Std Deviation 49.1 H Plt Count 147 Neut % (Auto) 58 Lymph % (Auto) 31 Stone % (Auto) 5 Eos % (Auto) 5 Baso % (Auto) 0 Neut # (Auto) 5.4 Lymph # (Auto) 2.9 Stone # (Auto) 0.5 Eos # (Auto) 0.5 Baso # (Auto) 0.0 Immature Gran # (Auto) 0.05 H Absolute Nucleated RBC 0.00 Immature Gran % 1 H Nucleated RBC % 0 Carboxyhemoglobin Sodium 155 H 153 H Potassium 4.5 Chloride 123 H* Carbon Dioxide 19.8 L Anion Gap 12 BUN 10 Creatinine 0.8 Estim Creat Clear Calc 143.3 eGFR > 60 BUN/Creatinine Ratio 13 Glucose 64 L Calculated Osmolality 304 H Lactic Acid 2.0 Calcium 8.1 L Corrected Calcium 8.8 Phosphorus 2.9 Magnesium 2.4 2.3 Total Bilirubin 0.4 AST 45 H ALT 75 H Alkaline Phosphatase 40 L Total Protein 5.3 L Albumin 3.1 L D Globulin 2.2 L Albumin/Globulin Ratio 1.4 ABG Interpretation ABG results: 02/02/25 02/06/25 02/07/25 16:10 12:13 10:45 ABG pH 7.47 H ABG pCO2 24 L ABG pO2 96 ABG HCO3 17 L ABG O2 Saturation 98 ABG Base Excess -5 L VBG pH 7.55 7.47 VBG pCO2 25 L 21 L VBG pO2 113 H 71 H VBG Base Excess 1 -6 L Quality Measures Quality Measures VTE prophylaxis Assessment & Plan Assessment Current Active Medications: Generic Name Dose Route Start Last Admin Trade Name Freq PRN Reason Stop Dose Admin Acetaminophen 650 mg 02/02/25 16:12 Acetaminophen 325 Mg Tablet PO 03/04/25 15:11 Q6H PRN Fever >99.9 Citric Acid/Sodium Citrate 30 ml 02/08/25 09:00 02/08/25 08:01 Citric Acid/Sodium Citr 15 Ml Udc (Bicitra) PO 03/10/25 08:59 Not Given BID ROBBIE Dextrose 50 ml 02/02/25 17:28 02/07/25 06:11 Dextrose 50%-Water Inj 50 Ml Syringe IV 03/04/25 17:27 50 ml Q15MIN PRN Administration BG <50 OR BG <70 & pt unresponsive Famotidine 20 mg 02/04/25 09:00 02/08/25 08:17 Famotidine Inj 10 Mg/Ml Vial 2 Ml IVP 03/06/25 08:59 20 mg BID ROBBIE Administration Glucagon 1 mg 02/02/25 17:28 Glucagon Inj 1 Mg Vial IM Q15MIN PRN BG <70, and no IV access Cefepime HCl 2 gm/ Sodium 50 mls @ 100 mls/hr 02/02/25 17:17 02/08/25 14:06 Chloride IV 02/09/25 17:16 100 mls/hr Q8HR ROBBIE Administration Metronidazole 500 mg in 100 mls @ 200 mls/hr 02/07/25 16:24 02/08/25 14:06 Flagyl 500 Mg Iv IV 02/14/25 16:23 200 mls/hr Q8HR ROBBIE Administration Dextrose 1,000 mls @ 120 mls/hr 02/08/25 09:16 02/08/25 09:21 D5w IV 03/10/25 09:15 Not Given .Q8H20M [facility] Insulin Human Lispro 0 unit 02/07/25 00:00 02/08/25 12:41 Insulin Lispro (Admelog) 1 Unit/0.01 Ml Unit SC 03/09/25 00:00 Not Given Q6HR [facility] Protocol Ondansetron HCl 4 mg 02/02/25 15:17 02/06/25 18:07 Ondansetron Inj 2 Mg/Ml Inj 2 Ml IVP 03/04/25 15:16 4 mg Q6H PRN Administration NAUSEA OR VOMITING Protocol Potassium Phos/Sodium Phos 1 packet 02/05/25 21:00 02/07/25 09:15 [facility] Mbdb 1 Packet (1.5 Gm) PO 03/07/25 20:59 Not Given On Hold: 02/07/25 10:47 BID ROBBIE Pyridoxine HCl 100 mg 02/07/25 17:15 02/07/25 17:49 Pyridoxine Inj 100 Mg/Ml Vial IM 03/09/25 17:14 100 mg QDAY ROBBIE Administration Thiamine HCl 100 mg 02/08/25 21:00 Thiamine Inj 100 Mg/Ml Vial 2 Ml IVP 03/10/25 20:59 BID ROBBIE Plan Logan Dye 44M with pmhx significant for HTN, hx of gastric angiodysplasias s/p cautery 12/20/24, GERD, asthma, HLD, 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 #Acute encephalopathy / #Elevated lactic acid / #?Thiamine deficiency #?Sepsis, unknown etiology #Distended small bowel loops Patient presented with altered mental status, was unable to give a history but was able to deny or admit symptoms for a review of systems. Patient met severe sepsis criteria on admission with tachycardia and leukocytosis in addition to lactic acid of 10.8, which is evidence of end organ damage due to hypoperfusion, however currently no source of infection identified and further differentials as below. Spoke with family who reported younger brother of possible BALTAZAR virus at age 17. Admission VBG showed a pH of 7.55 and a pCO2 of 25. Ammonia mildly elevated 36. Syphillis cocci HIV and hep panel neg. UDS neg, salicylates and acetaminophen neg. UA 1+ protein, 2+ blood, 54 RBC, 24 WBC, LE+. CK wnl 50, beta hydroxy 0.6, 02/06 ABG 7.47/24/96/17. 02/07 VBG 7.47//71/95 Lactic acid on admission 10.8->6.2->3.8->2.6 but then uptrended 4.1->2.7->5.2->4.5->2.5->3.1 despite fluids, eventually downtrended to 2.5-> 2.0. CT abdomen pelvis was negative for hydronephrosis or ureteral calculi. CXR unremarkable. UCx and BCx, likely due to recent outpatient antibiotic course. 02/04 Echo showed EF estimated 60-65% The right ventricle is normal in size and systolic function. Normal aortic valve. Trace mitral and trace tricuspid regurgitation NO EVIDENCE OF VEGETATIONS. TDS due to patient lying supine and non- cooperative EEG was abnormal with diffuse slowing suggestive of diffuse encephalopathy of metabolic, degenerative or vascular origin. No epileptiform discharges noted. Brain MRI negative for acute hemorrhage, mass effect or midline shift, no acute infarct or microvascular white matter change. 02/06 Abd XR showed multiple air distended small bowel loops in the central abdomen, orogastric tube in stomach but stomach remains air distended 02/07 CTA with cont shows 4 mm lower pole nonobstructing right renal calculus, no hydronephrosis or ureteral calculi. Normal appendix. Mildly fluid distended small bowel loops, consider ileus, enteritis such as Crohn's disease. No findings diagnostic for ischemic small bowel but clinical correlation is advised. 02/07 CT orbit/face shows significant bilateral chronic mastoiditis, negative for acute mastoiditis, negative for otitis media or acquired cholesteatoma Ddx: Source of elevated lactic acid and/or encephalopathy possibly 2/2 thiamine deficiency bowel microischemia, small intestinal bacterial overgrowth, UTI, dental abscess as patient family now reports dental pain 3 weeks prior, cefepime s/e, Patient's mentation continued to worsened until 02/08, suddenly improving. Vanc (02/02-02/08) Plan: - Neurology consulted, recs appreciated: possible repeat LP - GI consulted for possible ileus vs enteritis per CTA AP, recs appreciated: IV thiamine 100 mg BID, B12 injection x1, pyridoxine IM QD, EGD prior to discharge iso black NG tube secretions - Continue broad abx cefepime (02/02- ) and metronidazole (02/07 - - Discontinue vancomycin - F/u lactate, prolactin, thiamine, KOJO, dsDNA, MUSC antibodies, aceylcholine receptor antibodies - PT ordered - Will plan to clamp NG tube once patient has BM #Electrolyte abnormalities #Hypernatremia #Hyperchloremia #Hypophosphatemia #Hypomagnesemia #Hypocalcemia, resolved Patient presented with Na of 146, with gradual increase everyday despite D5W. Likely 2/2 poor PO intake 2/2 AMS. Cannot exclude neurological cause given patient is becoming more encephalopathic everyday. Ddx includes small bowel microischemia, RTA, HAGMA with respiratory compensation. Delta Delta calculated -8 with 02/07 labs signifying one of the three following: Mixed HAGMA and NAGMA. Mixed HAGMA with chronic respiratory alkalosis plys hyperchloremic acidosis. HAGMA with preexisting low anion gap state (hypoalbuminemia, paraproteinemia, etc). Free water decifit 6.2L. Patient has received cumulative 14L of fluids since admission with recorded output 1575 mL with Guo inserted on 02/06 however some of the fluids were NS. Plan: - Nephrology consulted, recs appreciated: - bicitra BID and oral free water flushes once can tolerate oral as NG tube is in place, - Start D5W 120 cc/hr with q8h Na checks x4 with goal of decreasing sodium 10-12 mEq over 24h, decrease rate or stop accordingly if Na exceeds goal. - Start desmopressin 2 mcg QD iso new net negative 2.6L over the past 24h - F/u Ulytes and repeat UA - CTM sodium - Fluids as above #Transaminitis, improving #Coagulopathy, improving #Metabolic dysfunction-associated steatotic liver disease #Non-obstructing gallstones On admission, PT elevated 14.6 with INR 1.4, and AST ALT 80/217. AST/ALT initially peaked and downtrended. Not on hepatotoxic home medication and denies alcohol use. Denies RUQ pain. Abdominal ultrasound negative for cholelithiasis or cholecystitis, multiple gallstones, liver 14.5 cm fatty infiltration no focal liver lesions Ddx includes acidotic state with elevated lactic acid impairing coagulation with subsequent liver and tissue damage. Plan: - CTM LFTs - Avoid hepatotoxic medications - Fluids as above for continued elevated lactic acid #GERD Per history taken from the patient's mother Plan: - Continue IV famotidine 20 mg BID #Hypercholesterolemia Per history taken from patient's mother. Patient takes atorvastatin 40 mg p.o. daily at home Plan: - Hold in the presence of transaminitis #Asthma Per patient history gathered from patient's mother. Patient montelukast 10 mg p.o. daily Plan: - No indication for treatment at this time as patient is asymptomatic #Hyperglycemia (Resolved) Fingerstick glucose 237 on arrival. Per patient's mother, he does not have a history of diabetes. 02/03/25 A1c 5.9 Plan: - SSI in place #Hyperthyroidism (Resolved) Thyroxine 13.6 repeat thyroxine 1.18. Consider acute phase thyrotoxicosis reaction over underlying thyroid condition Hospital management: Lines: PIV Diet: NPO Bowel: None GI prophylaxis: IV famotidine 20 mg BID DVT prophylaxis: SCDs Disposition: tele, encephalopathy worsening, pending GI and nephro consult, NG tube still in place CODE STATUS: FULL CODE Plan of care discussed with attending Dr. Dailey, and PGY-2 Dr. Scott. Mercedes Yuen, DO PGY-1 Internal Medicine Attending Provider Attestation/Addendum I have examined the patient, reviewed labs and imaging findings, discussed the case with the resident(s), and reviewed entered orders. I agree with the plan of care as outlined in this note, with these additional summaries/recommendations: Patient seen at bedside. No acute overnight events. Today patient has had significant improvement in his mental status. He remains encephalopathic but is now oriented to self and recognizes his family members. Further history obtained from patient's mother today revealed patient likely has had little to no oral intake in the last 2 months. Patient was given thiamine yesterday and has rapid improvement in his mental status and patient likely has thiamine deficiency/Wernicke encephalopathy. We will continue IV thiamine 100 mg twice daily. Gastroenterology and dietary following. Patient has a history of dysphagia and may require repeat EGD. Patient appears to have signs of refeeding syndrome and we will continue to replace electrolytes as needed and slowly reinstitute diet when able. In-house neurology following. In-house nephrology following for acid-base disturbances. NG tube still in place for previously suspected small bowel obstruction. We will clamp NG tube today to monitor how patient tolerates. He has not had a bowel movement although most recent imaging did not reveal small bowel obstruction. We will give suppository. Hypernatremia present and continue IV fluids. Given that mental status is improved we will discontinue bilateral wrist restraints. Patient and family updated on the plan and in agreement. All questions answered to satisfaction. Please see residents note for additional details and management. Dr. Ashlie MD
--- NOTE | 2025-02-08 15:56 | PC.SS ---
Addendum entered by Anita Thompson 02/08/25 16:10: SS sent out inquiry through [facility] [employer]. Patient not medically ready but may need short term SNF Original Note: rounding note: Patient remanied altered. Notes indicate neuro rec's. Patient on soft restraints and to be removed. Patient on ng tube. SnF vs . PT to continue. Patient resides with his mother. Need updated PT notes.
--- NOTE | 2025-02-08 16:08 | ESPR_ITS ---
Documentation for date of: 02/08/25 Subjective Subjective Interval history: Patient examined at bedside. Vitals are stable, labs unremarkable with glucose 64 this morning. Myasthenia gravis workup is pending. Mentation has significantly improved since yesterday. Patient is responding, eyes open, oriented to self only. Per nursing patient has not yet have a bowel movement. NG tube remains in place suctioning dark contents. Strength 5/5 upper extremities. 3/5 lower extremity. Continue thiamine and pyridoxine. Defer LP as patient has improved. Exam Vital Signs Temp Pulse Resp BP Pulse Ox O2 Del Method 96.8 F 121 H 19 120/88 H 97 Room Air 02/08/25 12:00 02/08/25 12:00 02/08/25 12:00 02/08/25 12:00 02/08/25 12:00 02/08/25 12:00 Narrative Exam General: Middle age male, obese, awake, slow responses HEENT: NCAT, No JVD noted. Mucosa dry. Pupils are equal and reactive to light bilaterally, NG tube in place on LIS Cardiovascular: Normal S1 and S2. Regular rate and rhythm. Respiratory: Lungs are clear to auscultation bilaterally. No wheezing or crackles heard. Abdomen: Soft, nontender, distended, bowel sounds not appreciated Skin: Warm to touch, dry, no rashes noted Musculoskeletal: No gross injuries. No pitting edema, Strength 5/5 upper extremities. 3/5 lower extremity. Neuro: Oriented to self, able to name this family members at baseline. cranial nerves grossly intact Psych: Normal affect and mood Objective Labs 02/09/25 05:25 02/09/25 21:15 Labs: Laboratory Results - last 24 hr 02/07/25 02/07/25 02/07/25 14:10 16:10 19:10 WBC 9.3 RBC 4.23 L Hgb 13.2 L Hct 39.8 L MCV 94 MCH 31.2 MCHC 33.2 RDW Std Deviation 48.6 H Plt Count 165 Neut % (Auto) 54 Lymph % (Auto) 38 [place] % (Auto) 4 Eos % (Auto) 3 Baso % (Auto) 1 Neut # (Auto) 5.0 Lymph # (Auto) 3.6 [place] # (Auto) 0.4 Eos # (Auto) 0.3 Baso # (Auto) 0.1 Immature Gran # (Auto) 0.06 H Absolute Nucleated RBC 0.00 Immature Gran % 1 H Nucleated RBC % 0 Carboxyhemoglobin 4.4 H Sodium 151 H Potassium 4.5 D Chloride 121 H* Carbon Dioxide 14.6 L* Anion Gap 15 BUN 6 L Creatinine 0.7 Estim Creat Clear Calc 163.8 eGFR > 60 BUN/Creatinine Ratio 9 L Glucose 91 Calculated Osmolality 297 H Lactic Acid 3.1 H 2.5 H Calcium 8.9 Corrected Calcium 8.9 Phosphorus 2.5 Magnesium Total Bilirubin AST ALT Alkaline Phosphatase Total Protein Albumin 4.0 D Globulin Albumin/Globulin Ratio 02/07/25 02/08/25 02/08/25 23:06 05:35 10:25 WBC 9.3 RBC 3.82 L Hgb 11.9 L Hct 35.7 L MCV 94 MCH 31.2 MCHC 33.3 RDW Std Deviation 49.1 H Plt Count 147 Neut % (Auto) 58 Lymph % (Auto) 31 [place] % (Auto) 5 Eos % (Auto) 5 Baso % (Auto) 0 Neut # (Auto) 5.4 Lymph # (Auto) 2.9 [place] # (Auto) 0.5 Eos # (Auto) 0.5 Baso # (Auto) 0.0 Immature Gran # (Auto) 0.05 H Absolute Nucleated RBC 0.00 Immature Gran % 1 H Nucleated RBC % 0 Carboxyhemoglobin Sodium 155 H 153 H Potassium 4.5 Chloride 123 H* Carbon Dioxide 19.8 L Anion Gap 12 BUN 10 Creatinine 0.8 Estim Creat Clear Calc 143.3 eGFR > 60 BUN/Creatinine Ratio 13 Glucose 64 L Calculated Osmolality 304 H Lactic Acid 2.0 Calcium 8.1 L Corrected Calcium 8.8 Phosphorus 2.9 Magnesium 2.4 2.3 Total Bilirubin 0.4 AST 45 H ALT 75 H Alkaline Phosphatase 40 L Total Protein 5.3 L Albumin 3.1 L D Globulin 2.2 L Albumin/Globulin Ratio 1.4 ABG Interpretation ABG results: 02/02/25 02/06/25 02/07/25 16:10 12:13 10:45 ABG pH 7.47 H ABG pCO2 24 L ABG pO2 96 ABG HCO3 17 L ABG O2 Saturation 98 ABG Base Excess -5 L VBG pH 7.55 7.47 VBG pCO2 25 L 21 L VBG pO2 113 H 71 H VBG Base Excess 1 -6 L Quality Measures Quality Measures VTE prophylaxis Assessment & Plan Assessment Current Active Medications: Generic Name Dose Route Start Last Admin Trade Name Freq PRN Reason Stop Dose Admin Acetaminophen 650 mg 02/02/25 16:12 Acetaminophen 325 Mg Tablet PO 03/04/25 15:11 Q6H PRN Fever >99.9 Citric Acid/Sodium Citrate 30 ml 02/08/25 09:00 02/08/25 08:01 Citric Acid/Sodium Citr 15 Ml Udc (Bicitra) PO 03/10/25 08:59 Not Given BID ROBBIE Desmopressin Acetate 2 mcg 02/08/25 14:45 Desmopressin Acetate 4 Mcg/Ml Vial IV 03/10/25 14:44 QDAY ROBBIE Dextrose 50 ml 02/02/25 17:28 02/07/25 06:11 Dextrose 50%-Water Inj 50 Ml Syringe IV 03/04/25 17:27 50 ml Q15MIN PRN Administration BG <50 OR BG <70 & pt unresponsive Famotidine 20 mg 02/04/25 09:00 02/08/25 08:17 Famotidine Inj 10 Mg/Ml Vial 2 Ml IVP 03/06/25 08:59 20 mg BID ROBBIE Administration Glucagon 1 mg 02/02/25 17:28 Glucagon Inj 1 Mg Vial IM Q15MIN PRN BG <70, and no IV access Cefepime HCl 2 gm/ Sodium 50 mls @ 100 mls/hr 02/02/25 17:17 02/08/25 14:06 Chloride IV 02/09/25 17:16 100 mls/hr Q8HR ROBBIE Administration Metronidazole 500 mg in 100 mls @ 200 mls/hr 02/07/25 16:24 02/08/25 14:06 Flagyl 500 Mg Iv IV 02/14/25 16:23 200 mls/hr Q8HR ROBBIE Administration Dextrose 1,000 mls @ 120 mls/hr 02/08/25 09:16 02/08/25 09:21 D5w IV 03/10/25 09:15 Not Given .Q8H20M [facility] Insulin Human Lispro 0 unit 02/07/25 00:00 02/08/25 12:41 Insulin Lispro (Admelog) 1 Unit/0.01 Ml Unit SC 03/09/25 00:00 Not Given Q6HR [facility] Protocol Ondansetron HCl 4 mg 02/02/25 15:17 02/06/25 18:07 Ondansetron Inj 2 Mg/Ml Inj 2 Ml IVP 03/04/25 15:16 4 mg Q6H PRN Administration NAUSEA OR VOMITING Protocol Potassium Phos/Sodium Phos 1 packet 02/05/25 21:00 02/07/25 09:15 [facility] 1 Packet (1.5 Gm) PO 03/07/25 20:59 Not Given On Hold: 02/07/25 10:47 BID ROBBIE Pyridoxine HCl 100 mg 02/07/25 17:15 02/07/25 17:49 Pyridoxine Inj 100 Mg/Ml Vial IM 03/09/25 17:14 100 mg QDAY ROBBIE Administration Thiamine HCl 100 mg 02/08/25 21:00 Thiamine Inj 100 Mg/Ml Vial 2 Ml IVP 03/10/25 20:59 BID ROBBIE Plan Summary: Logan Dye is a 44-year-old male with a past medical history of hypertension, GERD, allergies, asthma, hypercholesterolemia, 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 He was admitted for severe sepsis. #Acute encephalopathy-improving Possible thiamine deficiency. Levels are pending, significant improvement after oral supplementation. Patient presented with altered mental status, poor historian. anion gap of 25 and appeared to be compensating in a respiratory manner appropriate for metabolic acidosis, as VBG showed a pH of 7.55 and a pCO2 of 25 Patient denied dysuria, urine positive for 1+ protein, 2+ blood, 54 RBC, 24 white blood cells, leukocyte esterase positive CT abdomen pelvis was negative for hydronephrosis or ureteral calculi Urine and blood cultures negative, likely due to recent outpatient antibiotic course, Cocci serology negative EEG was nondiagnostic. No evidence of seizure-like activity. Brain MRI Negative for acute hemorrhage or acute infarct. Echo on 02/04 showed EF 60-65%, no evidence of vegetations -Cefepime 2 g IV every 8 hours - Metronidazole TID -MG workup including acetylcholine receptors and [facility] antibodies are pending -Thiamine IV 100mg BID - Pyridoxine 100 mg daily #Hypernatremia #Transaminitis #Elevated PT #Hyperammonemia (Resolved) #Elevated INR (Resolved) #Hyperthyroidism (Resolved) #Hyperglycemia (Resolved) #GERD #Hypercholesterolemia #Asthma #Acute anion gap metabolic acidosis (Resolved) Primary care team to manage above conditions and ongoing care needs. The patient's management plan was discussed with my attending physician Dr. Broderick. Amanda Turner, PGY-2 Attending Provider Attestation/Addendum I personally have seen and examined the patient at the bedside and I agree with resident's findings, assessment and plan of care. Patient's mental status has gradually improved but not close to baseline according to the family members. He continues to be generally weak but still able to move his upper and lower extremities, he is very slow to respond with a long latency in answering even simple questions. Will continue to monitor him closely and follow-up with the send out labs as become available. Continue with the current management will consider physical therapy evaluation when more awake and alert and to follow instructions. Will hold off on the LP for now. So far workup is negative including repeat EEG and MRI brain.
--- NOTE | 2025-02-08 16:20 | ESPR_ITS ---
Documentation for date of: 02/08/25 Subjective Subjective Interval history: Patient evaluated Mental status improved Hemoglobin did drop to 11.9 and 35.7 Improved CO2 to 19.8 Dropping lactic acid to 2.0 Exam Vital Signs Temp Pulse Resp BP Pulse Ox O2 Del Method 96.8 F 121 H 19 120/88 H 97 Room Air 02/08/25 12:00 02/08/25 12:00 02/08/25 12:00 02/08/25 12:00 02/08/25 12:00 02/08/25 12:00 Objective Labs 02/08/25 05:35 02/08/25 10:25 Labs: Laboratory Results - last 24 hr 02/07/25 02/07/25 02/07/25 16:10 19:10 23:06 WBC RBC Hgb Hct MCV MCH MCHC RDW Std Deviation Plt Count Neut % (Auto) Lymph % (Auto) [place] % (Auto) Eos % (Auto) Baso % (Auto) Neut # (Auto) Lymph # (Auto) [place] # (Auto) Eos # (Auto) Baso # (Auto) Immature Gran # (Auto) Absolute Nucleated RBC Immature Gran % Nucleated RBC % Carboxyhemoglobin 4.4 H Sodium 151 H Potassium 4.5 D Chloride 121 H* Carbon Dioxide 14.6 L* Anion Gap 15 BUN 6 L Creatinine 0.7 Estim Creat Clear Calc 163.8 eGFR > 60 BUN/Creatinine Ratio 9 L Glucose 91 Calculated Osmolality 297 H Lactic Acid 3.1 H 2.5 H 2.0 Calcium 8.9 Corrected Calcium 8.9 Phosphorus 2.5 Magnesium 2.4 Total Bilirubin AST ALT Alkaline Phosphatase Total Protein Albumin 4.0 D Globulin Albumin/Globulin Ratio 02/08/25 02/08/25 05:35 10:25 WBC 9.3 RBC 3.82 L Hgb 11.9 L Hct 35.7 L MCV 94 MCH 31.2 MCHC 33.3 RDW Std Deviation 49.1 H Plt Count 147 Neut % (Auto) 58 Lymph % (Auto) 31 [place] % (Auto) 5 Eos % (Auto) 5 Baso % (Auto) 0 Neut # (Auto) 5.4 Lymph # (Auto) 2.9 [place] # (Auto) 0.5 Eos # (Auto) 0.5 Baso # (Auto) 0.0 Immature Gran # (Auto) 0.05 H Absolute Nucleated RBC 0.00 Immature Gran % 1 H Nucleated RBC % 0 Carboxyhemoglobin Sodium 155 H 153 H Potassium 4.5 Chloride 123 H* Carbon Dioxide 19.8 L Anion Gap 12 BUN 10 Creatinine 0.8 Estim Creat Clear Calc 143.3 eGFR > 60 BUN/Creatinine Ratio 13 Glucose 64 L Calculated Osmolality 304 H Lactic Acid Calcium 8.1 L Corrected Calcium 8.8 Phosphorus 2.9 Magnesium 2.3 Total Bilirubin 0.4 AST 45 H ALT 75 H Alkaline Phosphatase 40 L Total Protein 5.3 L Albumin 3.1 L D Globulin 2.2 L Albumin/Globulin Ratio 1.4 Impressions Impression: Metabolic encephalopathy improving Anemia multifactorial No plans for invasive GI workup at the moment Will continue to follow ABG Interpretation ABG results: 02/02/25 02/06/25 02/07/25 16:10 12:13 10:45 ABG pH 7.47 H ABG pCO2 24 L ABG pO2 96 ABG HCO3 17 L ABG O2 Saturation 98 ABG Base Excess -5 L VBG pH 7.55 7.47 VBG pCO2 25 L 21 L VBG pO2 113 H 71 H VBG Base Excess 1 -6 L Assessment & Plan Time Spent With Patient Time: Total time spent is greater than 50% in coordination of care (as documented) at patient's floor/unit and/or counseling patient:
[2025-02-08] MEDS: DESMOPRESSIN ACETATE 4 MCG/ML VIAL 2 MCG IV (16:29)
[2025-02-08] MEDS: DEXTROSE 5%-WATER 1,000 ML 120 ML IV (16:29)
[2025-02-08 16:49] LABS: Collection Type, Urine Catheter
[2025-02-08 16:59] LABS: Chloride,Urine Random 136.0 mMol/L (55.0-125.0); Potassium,Urine Random 40 mMol/L (12-62); Protein Total, Random Urine 74 mg/dL (1-14); Sodium,Urine Random 165.0 mMol/L (20.0-110.0); Urea Nitrogen, Random Urine 514.0 mg/dL (350.0-1000.0)
[2025-02-08 18:01] LABS: Bacteria,Urine Rare; Bilirubin,Urine Negative (Negative); Blood,Urine Trace (Negative); Clarity,Urine Clear (Clear/Hazy); Color,Urine Yellow (Lt Yel-Yel); Culture Indicated,Urine Not Indicated; Glucose, Urine Negative (Negative); Hyaline Casts,Urine < 1 /hpf (0-1); Ketones,Urine 1+ (Negative); Leukocyte Esterase,Urine Negative (Negative); Nitrite,Urine Negative (Negative); PH,Urine 5.0 (5.0-7.0); Protein,Urine Trace (Neg - Trace); RBC,Urine 1 /hpf (0-3); Specific Gravity,Urine 1.032 (1.001-1.035); Squamous Epithelial Cell,Urine < 1 /hpf (0-5); Urobilinogen,Urine Negative mg/dL (0.0-1.0); WBC,Urine 3 /hpf (0-5)
[2025-02-08 18:10] LABS: Sodium 151 mMol/L (136-145)
[2025-02-08] MEDS: CITRIC ACID/SODIUM CITR 15 ML UDC (BICITRA) 30 ML PO (20:20)
[2025-02-08 22:07] LABS: Albumin, Serum 3.2 gm/dL (3.5-5.0); Anion Gap 13 (7-16); BUN/Creatinine Ratio 11 Ratio (12-20); Blood Urea Nitrogen 8 mg/dL (9-23); Calcium 8.3 mg/dL (8.3-10.6); Calcium (Corrected) 8.9 mg/dL (8.5-10.1); Carbon Dioxide 17.5 mMol/L (20.0-31.0); Chloride 119 mMol/L (98-107); Creatinine (Component) 0.7 mg/dL (0.6-1.3); Estimated Creatinine Clearance 163.8 mL/min (>60); Glucose 108 mg/dL (74-106); Osmolality,Calculated 295 (275-295); Phosphorous 2.3 mg/dL (2.4-5.1); Potassium 3.6 mMol/L (3.4-5.1); Sodium 149 mMol/L (136-145); eGFR > 60 See Note
[2025-02-09] VITALS: BP 132/89; PULSE 109; RESP 18; TEMP 36.5; O2SAT 96
--- NOTE | 2025-02-09 01:13 | PC.NURSE ---
patient is very confused, patient sees cats in his room. the tele sitter called and patient was pulling off all his leads then tried to reach for ng tube. I was able to apply enrrique soft wrist restraints and he is tolerating fine.
[2025-02-09] MEDS: DEXTROSE 5%-WATER 1,000 ML 120 ML IV ×2 (02:00→10:25)
[2025-02-09 02:06] LABS: Sodium 148 mMol/L (136-145)
[2025-02-09 04:00] VITALS: BP 92/58; PULSE 104; RESP 14; TEMP 36.1; O2SAT 96
[2025-02-09 05:16] VITALS: BMI 42.8
[2025-02-09] MEDS: CEFEPIME INJ 2 GM in SODIUM CHLORIDE 0.9% (Popper) 50 ML IV (05:30)
[2025-02-09] MEDS: metroNIDAZOLE/NS 500 MG IVPB 500 MG/100 ML BAG 200 MG IV (05:36)
[2025-02-09 05:43] LABS: Basophils # (Auto) 0.1 Thou/mm3 (0.0-0.2); Basophils % (Auto) 1 % (0-2.5); Eosinophils # (Auto) 0.6 Thou/mm3 (0.0-0.5); Eosinophils % (Auto) 6 % (0-10); Hematocrit 30.8 % (41.0-53.0); Hemoglobin 10.5 g/dL (13.5-16.0); Immature Granulocytes Auto 0.07 Thou/mm3 (0.00-0.00); Lymphocytes # (Auto) 3.1 Thou/mm3 (1.0-4.8); Lymphocytes % (Auto) 35 % (10-50); Mean Corpuscular HGB Conc 34.1 g/dl (31.0-37.0); Mean Corpuscular Hemoglobin 31.6 pg (25.0-35.0); Mean Corpuscular Volume 93 fL (80-100); Monocytes # (Auto) 0.5 Thou/mm3 (0.0-0.8); Monocytes % (Auto) 6 % (0-12); Neutrophils # (Auto) 4.5 Thou/mm3 (1.8-7.7); Neutrophils % (Auto) 51 % (37-80); Nucleated Red Blood Cell # 0.00 Thou/mm3 (0.00-0.00); Nucleated Red Blood Cell % 0 /100 WBC (0); Platelet Count 150 Thou/mm3 (140-440); RDW Standard Deviation 47.5 fL (35.1-43.9); Red Blood Count 3.32 Miln/mm3 (4.50-5.90); White Blood Count 8.7 Thou/mm3 (3.8-10.6)
[2025-02-09 06:15] LABS: Alanine Aminotransferase 63 U/L (10-49); Albumin, Serum 2.9 gm/dL (3.5-5.0); Albumin/Globulin Ratio 1.5 (1.2-2.2); Alkaline Phosphatase 37 U/L (46-116); Anion Gap 8 (7-16); Aspartate Amino Transferase 37 U/L (0-34); BUN/Creatinine Ratio 11 Ratio (12-20); Bilirubin,Total 0.4 mg/dL (0.3-1.2); Blood Urea Nitrogen 8 mg/dL (9-23); Calcium 8.0 mg/dL (8.3-10.6); Calcium (Corrected) 8.9 mg/dL (8.5-10.1); Carbon Dioxide 20.9 mMol/L (20.0-31.0); Chloride 119 mMol/L (98-107); Creatinine (Component) 0.7 mg/dL (0.6-1.3); Estimated Creatinine Clearance 163.4 mL/min (>60); Globulin 2.0 gm/dL (2.3-3.5); Glucose 115 mg/dL (74-106); Magnesium 1.9 mg/dL (1.6-2.6); Osmolality,Calculated 293 (275-295); Phosphorous 2.0 mg/dL (2.4-5.1); Potassium 3.1 mMol/L (3.4-5.1); Sodium 148 mMol/L (136-145); Total Protein 4.9 gm/dL (5.7-8.2); eGFR > 60 See Note
[2025-02-09 08:00] VITALS: BP 93/71; PULSE 88; PULSE 90; RESP 14; TEMP 36.2; O2SAT 99
[2025-02-09 09:05] LABS: Sodium 148 mMol/L (136-145)
[2025-02-09] MEDS: Magnesium Sulfate 2 GM Ivpb 2 GM/50 ML BAG IV (09:51)
[2025-02-09] MEDS: POTASSIUM PHOS 22.5 MMOL in SODIUM CHLORIDE 0.9% 500 ML 500 ML 82.778 MMOL IV ×2 (09:51→16:46)
[2025-02-09] MEDS: THIAMINE INJ 100 MG/ML VIAL 2 ML IVP (09:52)
[2025-02-09] MEDS: CITRIC ACID/SODIUM CITR 15 ML UDC (BICITRA) 30 ML PO ×2 (09:52→20:31)
[2025-02-09] MEDS: DESMOPRESSIN ACETATE 4 MCG/ML VIAL 2 MCG IV (09:53)
--- NOTE | 2025-02-09 10:19 | ESPR_ITS ---
Documentation for date of: 02/09/25 Senior resident attestation: Patient evaluated and examined at the bedside, plan of care discussed with rest of the team including my attending physician, except as noted. #Acute encephalopathy?likely Wernicke encephalopathy in the setting of refeeding syndrome and thiamine deficiency, noted remarkable improvement in mental status following IV thiamine supplementation. Started the patient on IV thiamine 500 mg 3 times daily. #Refeeding syndrome, hypophosphatemia, hypokalemia, hyper chloremia, positive anion gap,?multiple electrolyte abnormalities in the setting of refeeding syndrome,Dietary is consulted, patient was started on partial parenteral nutrition. #High anion gap hyperchloremic metabolic acidosis, lactic acidosis now resolved, nephrology was consulted for severe electrolyte abnormalities, despite electrolyte replacement, per nephrology possible causes include proximal RTA, will recommended starting patient on desmopressin as patient had excessive diuresis. #Ileitis #Concern for GI bleed?NG tube is placed attached to HEMA, dark coffee-ground emesis, also noted downtrending hemoglobin concern for GI bleed. IV Protonix twice daily started, daily CBCs, transfuse if hemoglobin less than 7, GI is consulted by Dr. Campos eventual plan for endoscopy, once output less than 200 mL/day. Quresh PGY3 Subjective Subjective Interval history: Overnight, patient required restraints and was given 1 dose of hydroxyzine. P.m. BMP showed low phosphorus, sodium 149. Overnight, also patient's NG suction 500 mL. Patient seen and examined at bedside with family. In the morning, patient was answering very slow to some questions and not answering others at all. Later in the morning, patient was able to converse and demonstrated understanding and comprehension in full sentences. Patient appears to wax and wane throughout the day. Blood pressure 90s to 130s over 80s. Telemetry reviewed sinus tachycardia rate 105-115. Hemoglobin 11.9-10.5. Sodium 148 potassium 3.1 repleted with K-Phos x 2. Chloride 119, bicarb increased from 17-20. Creatinine 0.7 stable. Phosphate 2.0, magnesium 1.9 repleted 2 g. AST/ALT stable elevated 37/63. Albumin 2.9. The urine lytes showed sodium 145 protein 74 and potassium 40 and chloride 136. UA 1+ ketones no indication of UTI. Will be discussed with neuro for repeat possible LP due to continued fluctuating mental status. Per GI, likely EGD prior to discharge after NG tube has been removed. Increased thiamine 100 mg BID to 500 mg TID for 2 days then 250 TID for 5 days then 100 mg daily. Discontinue cefepime and metronidazole due to low suspicion of current infection as patient has received adequate cefepime and CT orbit showed no abscess. Soap serafin enema was given to promote bowel movement. Continue D5W with q8h sodium checks and desmopressin per nephrology. Ordered renal panel 2100. Started PPN for nutritional support. Exam Vital Signs Temp Pulse Resp BP Pulse Ox O2 Del Method 97.1 F 90 14 93/71 99 Room Air 02/09/25 08:00 02/09/25 08:00 02/09/25 08:00 02/09/25 08:00 02/09/25 08:00 02/09/25 08:00 Narrative Exam GENERAL: AOx1 to name only, following commands, improvement of encephalopathy, speaking in sentences, poor memory, NG tube in place draining black fluid HEENT: mucous membranes dry, bilateral sclera anicteric, tenderness at L mastoid, +dental caries and front L tooth absent CARDIOVASCULAR: regular rate and rhythm, S1/S2 present, no murmurs appreciated PULMONARY: clear to auscultation bilaterally, expiratory coarse breath sounds BL ABDOMINAL: soft, non-tender, non-distended, no rebound/guarding, bowel sounds present EXTREMITIES: no peripheral edema SKIN: warm and dry, intact, no wounds NEURO: CN II-XII grossly intact, able to wiggle toes and raise arms, decreased BLE strength Objective Labs 02/10/25 05:10 02/10/25 05:10 Labs: Laboratory Results - last 24 hr 02/08/25 02/08/25 02/08/25: 15:00 17:51 WBC RBC Hgb Hct MCV MCH MCHC RDW Std Deviation Plt Count Neut % (Auto) Lymph % (Auto) [place] % (Auto) Eos % (Auto) Baso % (Auto) Neut # (Auto) Lymph # (Auto) [place] # (Auto) Eos # (Auto) Baso # (Auto) Immature Gran # (Auto) Absolute Nucleated RBC Immature Gran % Nucleated RBC % Sodium 153 H 151 H Potassium Chloride Carbon Dioxide Anion Gap BUN Creatinine Estim Creat Clear Calc eGFR BUN/Creatinine Ratio Glucose Calculated Osmolality Calcium Corrected Calcium Phosphorus Magnesium Total Bilirubin AST ALT Alkaline Phosphatase Total Protein Albumin Globulin Albumin/Globulin Ratio Ur Collection Type Catheter Urine Color Yellow Urine Clarity Clear Urine pH 5.0 Ur Specific [place] 1.032 Urine Protein Trace Urine Glucose (UA) Negative Urine Ketones 1+ A Urine Blood Trace Urine Nitrite Negative Urine Bilirubin Negative Urine Urobilinogen (Auto) Negative Ur Leukocyte Esterase Negative Urine RBC 1 Urine WBC 3 Ur Squamous Epith Cells < 1 Urine Bacteria Rare Hyaline Casts < 1 Ur Culture Indicated? Not Indicated U Random Total Protein 74 H Ur Random Sodium 165.0 H Ur Random Potassium 40 Ur Random Chloride 136.0 H Ur Random Urea Nitrogn 514.0 02/08/25 02/09/25 02/09/25 21:19 01:30 05:25 WBC 8.7 RBC 3.32 L Hgb 10.5 L Hct 30.8 L MCV 93 MCH 31.6 MCHC 34.1 RDW Std Deviation 47.5 H Plt Count 150 Neut % (Auto) 51 Lymph % (Auto) 35 [place] % (Auto) 6 Eos % (Auto) 6 Baso % (Auto) 1 Neut # (Auto) 4.5 Lymph # (Auto) 3.1 [place] # (Auto) 0.5 Eos # (Auto) 0.6 H Baso # (Auto) 0.1 Immature Gran # (Auto) 0.07 H Absolute Nucleated RBC 0.00 Immature Gran % 1 H Nucleated RBC % 0 Sodium 149 H 148 H 148 H Potassium 3.6 D 3.1 L D Chloride 119 H 119 H Carbon Dioxide 17.5 L 20.9 Anion Gap 13 8 BUN 8 L 8 L Creatinine 0.7 0.7 Estim Creat Clear Calc 163.8 163.4 eGFR > 60 > 60 BUN/Creatinine Ratio 11 L 11 L Glucose 108 H D 115 H Calculated Osmolality 295 293 Calcium 8.3 8.0 L Corrected Calcium 8.9 8.9 Phosphorus 2.3 L 2.0 L Magnesium 1.9 Total Bilirubin 0.4 AST 37 H ALT 63 H Alkaline Phosphatase 37 L Total Protein 4.9 L Albumin 3.2 L 2.9 L Globulin 2.0 L Albumin/Globulin Ratio 1.5 Ur Collection Type Urine Color Urine Clarity Urine pH Ur Specific [place] Urine Protein Urine Glucose (UA) Urine Ketones Urine Blood Urine Nitrite Urine Bilirubin Urine Urobilinogen (Auto) Ur Leukocyte Esterase Urine RBC Urine WBC Ur Squamous Epith Cells Urine Bacteria Hyaline Casts Ur Culture Indicated? U Random Total Protein Ur Random Sodium Ur Random Potassium Ur Random Chloride Ur Random Urea Nitrogn 02/09/25 08:46 WBC RBC Hgb Hct MCV MCH MCHC RDW Std Deviation Plt Count Neut % (Auto) Lymph % (Auto) [place] % (Auto) Eos % (Auto) Baso % (Auto) Neut # (Auto) Lymph # (Auto) [place] # (Auto) Eos # (Auto) Baso # (Auto) Immature Gran # (Auto) Absolute Nucleated RBC Immature Gran % Nucleated RBC % Sodium 148 H Potassium Chloride Carbon Dioxide Anion Gap BUN Creatinine Estim Creat Clear Calc eGFR BUN/Creatinine Ratio Glucose Calculated Osmolality Calcium Corrected Calcium Phosphorus Magnesium Total Bilirubin AST ALT Alkaline Phosphatase Total Protein Albumin Globulin Albumin/Globulin Ratio Ur Collection Type Urine Color Urine Clarity Urine pH Ur Specific [place] Urine Protein Urine Glucose (UA) Urine Ketones Urine Blood Urine Nitrite Urine Bilirubin Urine Urobilinogen (Auto) Ur Leukocyte Esterase Urine RBC Urine WBC Ur Squamous Epith Cells Urine Bacteria Hyaline Casts Ur Culture Indicated? U Random Total Protein Ur Random Sodium Ur Random Potassium Ur Random Chloride Ur Random Urea Nitrogn ABG Interpretation ABG results: 02/02/25 02/06/25 02/07/25 16:10 12:13 10:45 ABG pH 7.47 H ABG pCO2 24 L ABG pO2 96 ABG HCO3 17 L ABG O2 Saturation 98 ABG Base Excess -5 L VBG pH 7.55 7.47 VBG pCO2 25 L 21 L VBG pO2 113 H 71 H VBG Base Excess 1 -6 L Quality Measures Quality Measures VTE prophylaxis Assessment & Plan Assessment Current Active Medications: Generic Name Dose Route Start Last Admin Trade Name Freq PRN Reason Stop Dose Admin Acetaminophen 650 mg 02/02/25 16:12 Acetaminophen 325 Mg Tablet PO 03/04/25 15:11 Q6H PRN Fever >99.9 Citric Acid/Sodium Citrate 30 ml 02/08/25 09:00 02/08/25 20:20 Citric Acid/Sodium Citr 15 Ml Udc (Bicitra) PO 03/10/25 08:59 30 ml BID ROBBIE Administration Desmopressin Acetate 2 mcg 02/08/25 14:45 02/08/25 16:29 Desmopressin Acetate 4 Mcg/Ml Vial IV 03/10/25 14:44 2 mcg QDAY ROBBIE Administration Dextrose 50 ml 02/02/25 17:28 02/07/25 06:11 Dextrose 50%-Water Inj 50 Ml Syringe IV 03/04/25 17:27 50 ml Q15MIN PRN Administration BG <50 OR BG <70 & pt unresponsive Glucagon 1 mg 02/02/25 17:28 Glucagon Inj 1 Mg Vial IM Q15MIN PRN BG <70, and no IV access Cefepime HCl 2 gm/ Sodium 50 mls @ 100 mls/hr 02/02/25 17:17 02/09/25 05:30 Chloride IV 02/09/25 17:16 100 mls/hr Q8HR ROBBIE Administration Metronidazole 500 mg in 100 mls @ 200 mls/hr 02/07/25 16:24 02/09/25 05:36 Flagyl 500 Mg Iv IV 02/14/25 16:23 200 mls/hr Q8HR ROBBIE Administration Dextrose 1,000 mls @ 120 mls/hr 02/08/25 09:16 02/09/25 02:00 D5w IV 03/10/25 09:15 120 mls/hr .Q8H20M ROBBIE Administration Potassium Phosphate 22.5 mmol/ 507.5 mls @ 82.778 mls/hr 02/09/25 07:45 Sodium Chloride IV 02/09/25 13:52 X1 ONE Potassium Phosphate 22.5 mmol/ 507.5 mls @ 82.778 mls/hr 02/09/25 14:00 Sodium Chloride IV 02/09/25 20:07 X1 ONE Insulin Human Lispro 0 unit 02/07/25 00:00 02/09/25 06:25 Insulin Lispro (Admelog) 1 Unit/0.01 Ml Unit SC 03/09/25 00:00 Not Given Q6HR ROBBIE Protocol Ondansetron HCl 4 mg 02/02/25 15:17 02/06/25 18:07 Ondansetron Inj 2 Mg/Ml Inj 2 Ml IVP 03/04/25 15:16 4 mg Q6H PRN Administration NAUSEA OR VOMITING Protocol Pantoprazole Sodium 40 mg 02/09/25 09:00 Pantoprazole Inj 40 Mg Vial IVP 03/11/25 08:59 BID ROBBIE Potassium Phos/Sodium Phos 1 packet 02/05/25 21:00 02/07/25 09:15 Naph,Kph Mbdb 1 Packet (1.5 Gm) PO 03/07/25 20:59 Not Given On Hold: 02/07/25 10:47 BID ROBBIE Pyridoxine HCl 100 mg 02/07/25 17:15 02/07/25 17:49 Pyridoxine Inj 100 Mg/Ml Vial IM 03/09/25 17:14 100 mg QDAY ROBBIE Administration Thiamine HCl 500 mg 02/09/25 10:10 Thiamine Inj 100 Mg/Ml Vial 2 Ml IVP 03/11/25 10:09 QDAY ROBBIE Plan Logan Dye 44M with pmhx significant for HTN, hx of gastric angiodysplasias s/p cautery 12/20/24, GERD, asthma, HLD, childhood epilepsy (last seizure was at age 9, on phenobarbital in the past) presented to [facility] 02/02 for AMS and generalized weakness admitted for encephalopathy with elevated lactic acid and possible thiamine deficiency. #Acute encephalopathy / #Elevated lactic acid 06/10 #?Thiamine deficiency #Distended small bowel loops Patient presented with altered mental status, was unable to give a history but was able to deny or admit symptoms for a review of systems. Patient met severe sepsis criteria on admission with tachycardia and leukocytosis in addition to lactic acid of 10.8, which is evidence of end organ damage due to hypoperfusion, however currently no source of infection identified and further differentials as below. Spoke with family who reported younger brother of possible BALTAZAR virus at age 17. Admission VBG showed a pH of 7.55 and a pCO2 of 25. Ammonia mildly elevated 36. Syphillis cocci HIV and hep panel neg. UDS neg, salicylates and acetaminophen neg. UA 1+ protein, 2+ blood, 54 RBC, 24 WBC, LE+. CK wnl 50, beta hydroxy 0.6, 02/06 ABG 7.47//17. 02/07 VBG 7.47// Lactic acid on admission 10.8->6.2->3.8->2.6 but then uptrended 4.1->2.7->5.2->4.5->2.5->3.1 despite fluids, eventually downtrended to 2.5-> 2.0. CT abdomen pelvis was negative for hydronephrosis or ureteral calculi. CXR unremarkable. UCx and BCx, likely due to recent outpatient antibiotic course. 02/04 Echo showed EF estimated 60-65% The right ventricle is normal in size and systolic function. Normal aortic valve. Trace mitral and trace tricuspid regurgitation NO EVIDENCE OF VEGETATIONS. TDS due to patient lying supine and non- cooperative EEG was abnormal with diffuse slowing suggestive of diffuse encephalopathy of metabolic, degenerative or vascular origin. No epileptiform discharges noted. Brain MRI negative for acute hemorrhage, mass effect or midline shift, no acute infarct or microvascular white matter change. 02/06 Abd XR showed multiple air distended small bowel loops in the central abdomen, orogastric tube in stomach but stomach remains air distended 02/07 CTA with cont shows 4 mm lower pole nonobstructing right renal calculus, no hydronephrosis or ureteral calculi. Normal appendix. Mildly fluid distended small bowel loops, consider ileus, enteritis such as Crohn's disease. No findings diagnostic for ischemic small bowel but clinical correlation is advised. 02/07 CT orbit/face shows significant bilateral chronic mastoiditis, negative for acute mastoiditis, negative for otitis media or acquired cholesteatoma Ddx: Source of elevated lactic acid and/or encephalopathy possibly /2 thiamine deficiency, bowel microischemia, small intestinal bacterial overgrowth, UTI, cefepime s/e, Patient's mentation continued to worsened until 02/08, suddenly improved able to recognize family members and speak in full sentences, however today, mental status worsening. Vanc (02/02-02/08), Cefepime (02/02-02/09), metronidazole (02/07-02/09) Plan: - Neurology consulted, recs appreciated: rediscuss possible repeat LP - GI consulted for possible ileus vs enteritis per CTA AP, recs appreciated: B12 injection x1, pyridoxine IM QD, EGD prior to discharge iso black NG tube secretions, will consider EGD when secretions have decreased - Increased IV thiamine 100 mg BID to 500 mg TID, plan to continue high dose thiamine for 2 more days, then downtitrate to 250 mg TID for 5 days, then 100 mg QD - Discontinue broad abx due to no clear source of infection and thus leading differential diagnosis for encephalopathy is thiamine deficiency at this time - F/u lactate, prolactin, thiamine, KOJO, dsDNA, MUSC antibodies, aceylcholine receptor antibodies - PT ordered - NG tube continues to drain, plan to discontinue once patient has bowel movement and secretions decrease - PPN started at 120 cc/hr for nutrition, 3L/24h #Electrolyte abnormalities #Hypernatremia #Hypokalemia #Hyperchloremia #Hypophosphatemia #Hypomagnesemia #Hypocalcemia, resolved Patient presented with Na of 146, with gradual increase everyday despite D5W. Likely 2/2 poor PO intake 2/2 AMS. Cannot exclude neurological cause given patient is becoming more encephalopathic everyday. Ddx includes small bowel microischemia, RTA, HAGMA with respiratory compensation. Delta Delta calculated -8 with 02/07 labs signifying one of the three following: Mixed HAGMA and NAGMA. Mixed HAGMA with chronic respiratory alkalosis plys hyperchloremic acidosis. HAGMA with preexisting low anion gap state (hypoalbuminemia, paraproteinemia, etc). 02/08 Ulytes sodium 145 protein 74 and potassium 40 and chloride 136. And repeat UA 1+ ketones no indication of UTI. Likely severely dehydrated due to poor p.o. intake for months. Free water decifit 6.2L. Patient has received cumulative 14L of fluids from 02/08 since admission with recorded output 1575 mL with Guo inserted on 02/06 however some of the fluids were NS. Plan: - Nephrology consulted, recs appreciated: - bicitra BID and oral free water flushes once can tolerate oral as currently NG tube is in place, - Continue D5W 120 cc/hr with q8h Na checks x4 with goal of decreasing sodium 10-12 mEq over 24h, decrease rate or stop accordingly if Na exceeds goal. - Continue desmopressin 2 mcg QD iso sudden increase in urine output on 02/08 - CTM sodium - Fluids as above #Transaminitis, improving #Coagulopathy, improving #Metabolic dysfunction-associated steatotic liver disease #Non-obstructing gallstones On admission, PT elevated 14.6 with INR 1.4, and AST ALT 80/217. AST/ALT initially peaked and downtrended. Not on hepatotoxic home medication and denies alcohol use. Denies RUQ pain. Abdominal ultrasound negative for cholelithiasis or cholecystitis, multiple gallstones, liver 14.5 cm fatty infiltration no focal liver lesions Ddx includes acidotic state with elevated lactic acid impairing coagulation with subsequent liver and tissue damage. Plan: - CTM LFTs - Avoid hepatotoxic medications - Fluids as above for continued elevated lactic acid #GERD Per history taken from the patient's mother Plan: - Discontinue IV famotidine 20 mg BID and started IV pantoprazole 40 mg BID #Hypercholesterolemia Per history taken from patient's mother. Patient takes atorvastatin 40 mg p.o. daily at home Plan: - Hold in the presence of transaminitis #Asthma Per patient history gathered from patient's mother. Patient montelukast 10 mg p.o. daily Plan: - No indication for treatment at this time as patient is asymptomatic #Hyperglycemia (Resolved) Fingerstick glucose 237 on arrival. Per patient's mother, he does not have a history of diabetes. 02/03/25 A1c 5.9 Plan: - SSI in place #Hyperthyroidism (Resolved) Thyroxine 13.6 repeat thyroxine 1.18. Consider acute phase thyrotoxicosis reaction over underlying thyroid condition Hospital management: Lines: PIV Diet: NPO Bowel: None GI prophylaxis: IV famotidine 20 mg BID DVT prophylaxis: SCDs Disposition: tele, encephalopathy worsening, pending GI and nephro consult, NG tube still in place CODE STATUS: FULL CODE Plan of care discussed with attending Dr. Dailey, and PGY-3 Dr. Tamayo. Mercedes Yuen, DO PGY-1 Internal Medicine Attending Provider Attestation/Addendum I have examined the patient, reviewed labs and imaging findings, discussed the case with the resident(s), and reviewed entered orders. I agree with the plan of care as outlined in this note, with these additional summaries/recommendations: Patient seen at bedside. No acute overnight events. He continues to show improvement in his mental status. He was seen talking with friends and family. He was able to identify family members although he still has episodes of intermittent confusion at times and did become agitated overnight requiring bilateral wrist restraints. He remains encephalopathic but is improving. Patient appears to be responding well to thiamine which does support the diagnosis of thiamine deficiency/Wernicke's encephalopathy. Thiamine dose increased. We will follow-up further neurology recommendations and lumbar puncture is still required. Given that patient has had no oral intake we will start PPN today. Gastroenterology and dietary following. Patient has a history of dysphagia and will require EGD prior to discharge although patient still has significant output in NG tube which we will continue for now. In-house nephrology following for acid-base disturbances which are improving. NG tube still in place for previously suspected small bowel obstruction. Hypernatremia present and continue IV fluids. Patient and family updated on the plan and in agreement. All questions answered to satisfaction. Please see residents note for additional details and management. Dr. Ashlie MD
--- NOTE | 2025-02-09 10:59 | PD.RESPRO ---
Documentation for date of: 02/09/25 Subjective Subjective Interval history: Mr Dye is a 44-year-old gentleman with a past medical history of hypertension, dyslipidemia, reflux, asthma, epilepsy (took phenobarbital 10 years ago), allergies was brought to the emergency department with altered mental status. Patient was altered in the ER and unable to give any history. As per the chart the patient was tachycardic tand was found to have a lactic acid of 10.8 with a white count of 24. Patient was admitted with a diagnosis of sepsis of unknown source. In the last 3 months he has been declining significantly. Last admission to the hospital was December 2024 for dysphagia and had a dilation by Dr. Campos. Patient continues to have symptoms of dysphagia. During this admission he was noted to have 40 pound weight loss and significant altered mental status. Patient was seen by neurology-CT brain negative. UA did not show any activity. LP was supposed to be done yesterday but unable to. Patient was seen by GI. could not get significant history as patient seems to be very sleepy. He has extensive workup done during this admission-CT abdomen showed nonobstructing renal calculi with no hydronephrosis. Chest x-ray negative. Abdominal ultrasound showed gallstones with no cholecystitis. Also has fatty liver. Echocardiogram showed ejection fraction 60%. EEG no seizure activity. MRI brain negative. CTA abdomen showed no ischemia. Lumbar puncture attempted but unsuccessful. Patient going for repeat LP possibly today with IR. 02/07/2025 patient currently seen in telemetry. Labs showed blood pressure 121/89, heart rate 116. Sleepy. White count 7.3, hemoglobin 11.8, platelets 154. Coags negative. ABG yesterday showed pH 7.47, pCO2 74, HCO3 17. carboxyhemoglobin 4.4. Sodium 153, potassium 3.4, chloride 125, bicarbonate 15.6, creatinine 0.6, lactic acid 4.5, calcium 7.7, phosphorus 1.7, magnesium 1.5, LFTs elevated, albumin 2.8 urinalysis and urine lites pending is nonreactive cocci negative hep panel negative HIV negative 02/08/2025 patient currently seen in telemetry today still with NG tube suction. More alert and awake and able to converse with me today. Started p.o. Bicitra. Urinalysis showed pH of 5.0, specific gravity 1032. Urine lytes positive for anion gap. 02/09/2025: Patient currently seen in telemetry. Mentation fluctuates; today more lethargic and minimally responsive compared to yesterday when he was conversant. Does not follow commands consistently. NG tube remains in place on low intermittent suction. No bowel movement reported overnight. Guo in place with adequate urine output. Blood pressure 93/71, heart rate 90. Sodium 148, chloride 119, bicarbonate 20, creatinine 0.7, phosphorus 2.0, magnesium 1.9, calcium 8.9. On D5W infusion and desmopressin. K-Phos started for hypophosphatemia. Lactic acid remains downtrended. Continues on cefepime and Flagyl. Exam Vital Signs Temp Pulse Resp BP Pulse Ox O2 Del Method 97.1 F 90 14 93/71 99 Room Air 02/09/25 08:00 02/09/25 08:00 02/09/25 08:00 02/09/25 08:00 02/09/25 08:00 02/09/25 08:00 Narrative Exam GENERAL: Appears drowsy, no acute distress. NG tube in place on LIS. HEENT: Mucous membranes dry; PERRLA; no icterus. NECK: Supple, no JVD. CARDIOVASCULAR: Regular rhythm, no murmurs. RESPIRATORY: Lungs clear bilaterally; no wheezes or crackles. ABDOMEN: Soft, mildly distended, non-tender, bowel sounds hypoactive. EXTREMITIES: No edema; moves legs [id number] but unable to lift them; weakness present. SKIN: Warm, dry, intact. NEURO: Somnolent; opens eyes to voice but does not answer questions; moves all extremities spontaneously. Objective Labs 02/10/25 05:10 02/10/25 05:10 Labs: Laboratory Results - last 24 hr 02/08/25 02/08/25 02/08/25 15:00 17:51 21:19 WBC RBC Hgb Hct MCV MCH MCHC RDW Std Deviation Plt Count Neut % (Auto) Lymph % (Auto) [place] % (Auto) Eos % (Auto) Baso % (Auto) Neut # (Auto) Lymph # (Auto) [place] # (Auto) Eos # (Auto) Baso # (Auto) Immature Gran # (Auto) Absolute Nucleated RBC Immature Gran % Nucleated RBC % Sodium 151 H 149 H Potassium 3.6 D Chloride 119 H Carbon Dioxide 17.5 L Anion Gap 13 BUN 8 L Creatinine 0.7 Estim Creat Clear Calc 163.8 eGFR > 60 BUN/Creatinine Ratio 11 L Glucose 108 H D Calculated Osmolality 295 Calcium 8.3 Corrected Calcium 8.9 Phosphorus 2.3 L Magnesium Total Bilirubin AST ALT Alkaline Phosphatase Total Protein Albumin 3.2 L Globulin Albumin/Globulin Ratio Ur Collection Type Catheter Urine Color Yellow Urine Clarity Clear Urine pH 5.0 Ur Specific [place] 1.032 Urine Protein Trace Urine Glucose (UA) Negative Urine Ketones 1+ A Urine Blood Trace Urine Nitrite Negative Urine Bilirubin Negative Urine Urobilinogen (Auto) Negative Ur Leukocyte Esterase Negative Urine RBC 1 Urine WBC 3 Ur Squamous Epith Cells < 1 Urine Bacteria Rare Hyaline Casts < 1 Ur Culture Indicated? Not Indicated U Random Total Protein 74 H Ur Random Sodium 165.0 H Ur Random Potassium 40 Ur Random Chloride 136.0 H Ur Random Urea Nitrogn 514.0 02/09/25 02/09/25 02/09/25 01:30 05:25 08:46 WBC 8.7 RBC 3.32 L Hgb 10.5 L Hct 30.8 L MCV 93 MCH 31.6 MCHC 34.1 RDW Std Deviation 47.5 H Plt Count 150 Neut % (Auto) 51 Lymph % (Auto) 35 [place] % (Auto) 6 Eos % (Auto) 6 Baso % (Auto) 1 Neut # (Auto) 4.5 Lymph # (Auto) 3.1 [place] # (Auto) 0.5 Eos # (Auto) 0.6 H Baso # (Auto) 0.1 Immature Gran # (Auto) 0.07 H Absolute Nucleated RBC 0.00 Immature Gran % 1 H Nucleated RBC % 0 Sodium 148 H 148 H 148 H Potassium 3.1 L D Chloride 119 H Carbon Dioxide 20.9 Anion Gap 8 BUN 8 L Creatinine 0.7 Estim Creat Clear Calc 163.4 eGFR > 60 BUN/Creatinine Ratio 11 L Glucose 115 H Calculated Osmolality 293 Calcium 8.0 L Corrected Calcium 8.9 Phosphorus 2.0 L Magnesium 1.9 Total Bilirubin 0.4 AST 37 H ALT 63 H Alkaline Phosphatase 37 L Total Protein 4.9 L Albumin 2.9 L Globulin 2.0 L Albumin/Globulin Ratio 1.5 Ur Collection Type Urine Color Urine Clarity Urine pH Ur Specific [place] Urine Protein Urine Glucose (UA) Urine Ketones Urine Blood Urine Nitrite Urine Bilirubin Urine Urobilinogen (Auto) Ur Leukocyte Esterase Urine RBC Urine WBC Ur Squamous Epith Cells Urine Bacteria Hyaline Casts Ur Culture Indicated? U Random Total Protein Ur Random Sodium Ur Random Potassium Ur Random Chloride Ur Random Urea Nitrogn ABG Interpretation ABG results: 02/02/25 02/06/25 02/07/25 16:10 12:13 10:45 ABG pH 7.47 H ABG pCO2 24 L ABG pO2 96 ABG HCO3 17 L ABG O2 Saturation 98 ABG Base Excess -5 L VBG pH 7.55 7.47 VBG pCO2 25 L 21 L VBG pO2 113 H 71 H VBG Base Excess 1 -6 L Quality Measures Quality Measures VTE prophylaxis Assessment & Plan Assessment Current Active Medications: Generic Name Dose Route Start Last Admin Trade Name Freq PRN Reason Stop Dose Admin Acetaminophen 650 mg 02/02/25 16:12 Acetaminophen 325 Mg Tablet PO 03/04/25 15:11 Q6H PRN Fever >99.9 Citric Acid/Sodium Citrate 30 ml 02/08/25 09:00 02/09/25 09:52 Citric Acid/Sodium Citr 15 Ml Udc (Bicitra) PO 03/10/25 08:59 30 ml BID ROBBIE Administration Desmopressin Acetate 2 mcg 02/08/25 14:45 02/09/25 09:53 Desmopressin Acetate 4 Mcg/Ml Vial IV 03/10/25 14:44 2 mcg QDAY ROBBIE Administration Dextrose 50 ml 02/02/25 17:28 02/07/25 06:11 Dextrose 50%-Water Inj 50 Ml Syringe IV 03/04/25 17:27 50 ml Q15MIN PRN Administration BG <50 OR BG <70 & pt unresponsive Glucagon 1 mg 02/02/25 17:28 Glucagon Inj 1 Mg Vial IM Q15MIN PRN BG <70, and no IV access Dextrose 1,000 mls @ 120 mls/hr 02/08/25 09:16 02/09/25 10:25 D5w IV 03/10/25 09:15 120 mls/hr .Q8H20M ROBBIE Administration Potassium Phosphate 22.5 mmol/ 507.5 mls @ 82.778 mls/hr 02/09/25 07:45 02/09/25 09:51 Sodium Chloride IV 02/09/25 13:52 82.778 mls/hr X1 ONE Administration Potassium Phosphate 22.5 mmol/ 507.5 mls @ 82.778 mls/hr 02/09/25 14:00 Sodium Chloride IV 02/09/25 20:07 X1 ONE Thiamine HCl 500 mg/ Sodium 105 mls @ 210 mls/hr 02/09/25 16:00 Chloride IV 03/11/25 15:59 TID [facility] Insulin Human Lispro 0 unit 02/07/25 00:00 02/09/25 06:25 Insulin Lispro (Admelog) 1 Unit/0.01 Ml Unit SC 03/09/25 00:00 Not Given Q6HR [facility] Protocol Ondansetron HCl 4 mg 02/02/25 15:17 02/06/25 18:07 Ondansetron Inj 2 Mg/Ml Inj 2 Ml IVP 03/04/25 15:16 4 mg Q6H PRN Administration NAUSEA OR VOMITING Protocol Pantoprazole Sodium 40 mg 02/09/25 09:00 02/09/25 09:51 Pantoprazole Inj 40 Mg Vial IVP 03/11/25 08:59 40 mg BID ROBBIE Administration Potassium Phos/Sodium Phos 1 packet 02/05/25 21:00 02/07/25 09:15 Naph,Kph Mbdb 1 Packet (1.5 Gm) PO 03/07/25 20:59 Not Given On Hold: 02/07/25 10:47 BID ROBBIE Pyridoxine HCl 100 mg 02/07/25 17:15 02/07/25 17:49 Pyridoxine Inj 100 Mg/Ml Vial IM 03/09/25 17:14 100 mg QDAY ROBBIE Administration Plan 44-year-old male with history of hypertension, dyslipidemia, GERD, asthma, and childhood epilepsy, admitted with severe sepsis of unclear source, lactic acidosis, and progressive encephalopathy. Nephrology following for electrolyte abnormalities and acid-base disturbances. # LARISA (resolved) Creatinine stable at 0.7, good urine output. Likely prerenal insult earlier secondary to sepsis and dehydration. Plan: Continue to monitor renal function and urine output Avoid nephrotoxins and IV contrast Maintain euvolemia # Non-anion gap metabolic acidosis Likely multifactorial, combination of volume contraction, GI losses via NG suction, and possible renal tubular dysfunction. Plan: Continue oral Bicitra if tolerated Maintain D5W for free-water correction Monitor bicarbonate and chloride trends # Hypernatremia Attributed to free-water deficit and possible central DI component. Gradually improving. Plan: Continue D5W and desmopressin as above Free-water goal: lower Na <10 mEq/24 hr Strict I/O and daily weights # Hypophosphatemia Likely related to refeeding syndrome and poor oral intake. Plan: Continue K-Phos supplementation Recheck phosphorus level in AM # Hypomagnesemia Mild, likely from poor intake and GI losses. Plan: Continue magnesium repletion as needed Recheck levels with morning labs # Hypocalcemia, resolved Previously low; now normalized. Plan: Monitor serum calcium daily # Acute metabolic encephalopathy Likely multifactorial?sepsis, electrolyte imbalance, possible Wernicke component. Mentation improved yesterday but slightly worse today. Plan: Continue IV thiamine and pyridoxine Continue infection management per primary team (cefepime + Flagyl) Monitor neuro status and LP results if performed by neuro # Dysphagia with NG suction NPO, unable to tolerate PO intake. GI following. ----- Plan discussed with attending physician Dr. Ciara Perez MD PGY-1 Internal Medicine Attending Provider Attestation/Addendum Patient seen and examined with resident physician Dr. Perez. Note reviewed, agree with findings and recommendations. Electrolyte seems to be slightly better. Waxing and waning neurological condition. Neurology on the case.
[2025-02-09] MEDS: THIAMINE INJ 100 MG/ML VIAL 2 ML 400 MG IVP (11:42)
[2025-02-09 12:00] VITALS: BP 110/88; PULSE 104; PULSE 109; RESP 15; TEMP 36.4; O2SAT 98
--- NOTE | 2025-02-09 12:00 | PC.SS ---
Rounding: Pt getting better clinically, will need an EGD prior to DC. DC plan [facility].
[2025-02-09 15:00] VITALS: BMI 42.8
[2025-02-09 16:00] VITALS: BP 109/84; PULSE 101; PULSE 102; RESP 19; TEMP 36.4; O2SAT 98
--- NOTE | 2025-02-09 16:03 | PC.DIETICIAN ---
Nutrition recommendations: PPN: D5% AA4.25% at 120 ml/hr with 500 ml 20% lipid 4 times a week ([id number]). 2880 ml volume, 122 g AA, 144 g dextrose, 1550 total calories, NPC 1061. GIR=0.8 / LIR=0.5 *Continue with IV thiamine. Daily labs for P, K, and Mg; replace as needed.
[2025-02-09] MEDS: THIAMINE INJ 500 MG in SODIUM CHLORIDE 0.9% 100 ML 210 MG IV ×2 (16:46→21:02)
[2025-02-09] MEDS: FAT EMULSIONS 20% IV 500 ML 32 ML IV (18:10)
[2025-02-09] MEDS: [UNRECOGNIZED DRUG - OTHER] IV (18:11)
[2025-02-09] MEDS: POTASSIUM ACET IV (18:11)
[2025-02-09] MEDS: MAGNESIUM SULF IV (18:11)
--- NOTE | 2025-02-09 19:19 | ESPR_ITS ---
Documentation for date of: 02/09/25 Subjective Subjective Interval history: Still considerable NGT suction Case discussed with internal medicine team Will reevaluate in the morning and if this secretions have gone down via the NGT suction we will consider doing an upper endoscopy as the home hemoglobin hematocrit continues to downtrend currently at 10.5 and 30.8 Patient did have coffee ground lavage before Exam Vital Signs Temp Pulse Resp BP Pulse Ox O2 Del Method 97.6 F 101 H 19 109/84 98 Room Air 02/09/25 16:00 02/09/25 16:00 02/09/25 16:00 02/09/25 16:00 02/09/25 16:00 02/09/25 16:00 Objective Labs 02/09/25 05:25 02/09/25 08:46 Labs: Laboratory Results - last 24 hr 02/08/25 02/09/25 02/09/25 21:19 01:30 05:25 WBC 8.7 RBC 3.32 L Hgb 10.5 L Hct 30.8 L MCV 93 MCH 31.6 MCHC 34.1 RDW Std Deviation 47.5 H Plt Count 150 Neut % (Auto) 51 Lymph % (Auto) 35 [place] % (Auto) 6 Eos % (Auto) 6 Baso % (Auto) 1 Neut # (Auto) 4.5 Lymph # (Auto) 3.1 [place] # (Auto) 0.5 Eos # (Auto) 0.6 H Baso # (Auto) 0.1 Immature Gran # (Auto) 0.07 H Absolute Nucleated RBC 0.00 Immature Gran % 1 H Nucleated RBC % 0 Sodium 149 H 148 H 148 H Potassium 3.6 D 3.1 L D Chloride 119 H 119 H Carbon Dioxide 17.5 L 20.9 Anion Gap 13 8 BUN 8 L 8 L Creatinine 0.7 0.7 Estim Creat Clear Calc 163.8 163.4 eGFR > 60 > 60 BUN/Creatinine Ratio 11 L 11 L Glucose 108 H D 115 H Calculated Osmolality 295 293 Calcium 8.3 8.0 L Corrected Calcium 8.9 8.9 Phosphorus 2.3 L 2.0 L Magnesium 1.9 Total Bilirubin 0.4 AST 37 H ALT 63 H Alkaline Phosphatase 37 L Total Protein 4.9 L Albumin 3.2 L 2.9 L Globulin 2.0 L Albumin/Globulin Ratio 1.5 02/09/25 08:46 WBC RBC Hgb Hct MCV MCH MCHC RDW Std Deviation Plt Count Neut % (Auto) Lymph % (Auto) [place] % (Auto) Eos % (Auto) Baso % (Auto) Neut # (Auto) Lymph # (Auto) [place] # (Auto) Eos # (Auto) Baso # (Auto) Immature Gran # (Auto) Absolute Nucleated RBC Immature Gran % Nucleated RBC % Sodium 148 H Potassium Chloride Carbon Dioxide Anion Gap BUN Creatinine Estim Creat Clear Calc eGFR BUN/Creatinine Ratio Glucose Calculated Osmolality Calcium Corrected Calcium Phosphorus Magnesium Total Bilirubin AST ALT Alkaline Phosphatase Total Protein Albumin Globulin Albumin/Globulin Ratio Impressions Impression: Downtrending hemoglobin hematocrit in the setting of ileus coffee-ground lavage initially and now bilious Plan N.p.o. midnight continue NGT suction Consent for fiberoptic esophagogastroduodenoscopy with possible biopsy possible therapeutic intervention tentatively scheduled for tomorrow depending upon the amount of NGT secretions KUB tonight ABG Interpretation ABG results: 02/02/25 02/06/25 02/07/25 16:10 12:13 10:45 ABG pH 7.47 H ABG pCO2 24 L ABG pO2 96 ABG HCO3 17 L ABG O2 Saturation 98 ABG Base Excess -5 L VBG pH 7.55 7.47 VBG pCO2 25 L 21 L VBG pO2 113 H 71 H VBG Base Excess 1 -6 L Assessment & Plan Time Spent With Patient Time: Total time spent is greater than 50% in coordination of care (as documented) at patient's floor/unit and/or counseling patient:
--- NOTE | 2025-02-09 19:21 | XR_ITS ---
Examination: Abdomen AP single view Technique: AP portable supine abdomen, single view Exam date and time: February 09, 20252001 hrs., Comparison February 06, 2025 Findings: Moderate colonic ileus A few loops of air distended small bowel No obstruction No free air Orogastric tube in stomach Impression: Moderate colonic ileus, no obstruction
[2025-02-09 20:00] VITALS: BP 112/80; PULSE 100; RESP 17; TEMP 36.2; O2SAT 97
[2025-02-09 21:46] LABS: Albumin, Serum 3.2 gm/dL (3.5-5.0); Anion Gap 11 (7-16); BUN/Creatinine Ratio 8 Ratio (12-20); Blood Urea Nitrogen 5 mg/dL (9-23); Calcium 8.2 mg/dL (8.3-10.6); Calcium (Corrected) 8.8 mg/dL (8.5-10.1); Carbon Dioxide 19.7 mMol/L (20.0-31.0); Chloride 111 mMol/L (98-107); Creatinine (Component) 0.6 mg/dL (0.6-1.3); Estimated Creatinine Clearance 190.6 mL/min (>60); Glucose 99 mg/dL (74-106); Osmolality,Calculated 280 (275-295); Phosphorous 2.3 mg/dL (2.4-5.1); Potassium 3.3 mMol/L (3.4-5.1); Sodium 142 mMol/L (136-145); eGFR > 60 See Note
--- NOTE | 2025-02-09 22:40 | PD.NEUROPROG ---
Documentation for date of: 02/09/25 Subjective Subjective Interval history: Patient was seen in telemetry today at the [facility]. Patient's mental status is significantly improved, still not back to baseline, very slow in answering questions which is unusual for him. No seizures or myoclonic jerks reported. He was placed on restraints for his upper extremities as he was restless. Exam - Neurology Vital Signs Temp Pulse Resp BP Pulse Ox O2 Del Method 97.2 F 100 17 112/80 97 Room Air 02/09/25 20:00 02/09/25 20:00 02/09/25 20:00 02/09/25 20:00 02/09/25 20:00 02/09/25 20:00 Narrative Exam GENERAL APPEARANCE: Well-developed, obese built male in no acute distress. HEENT: Normocephalic, atraumatic, extraocular movements intact. Pupils: Equal reacting to light NECK: Supple, no JVD or bruits. CARDIOVASULAR: Heart: S1, S2 heard, regular without S3-S4 or murmur no rubs or gallops. LUNGS/CHEST: Clear to auscultation bilaterally. No rails, rhonchi, or wheezing. Normal inspection. ABDOMEN: Soft, nontender, with normal bowel sounds. No pulsatile masses. No rebound, rigidity, or guarding. Normal inspection and palpation. EXTREMITIES: Normal inspection and palpation. No edema, clubbing or cyanosis. SKIN: Warm and dry without rashes. Normal inspection. MUSCULOSKELETAL: No cervical, thoracic, lumbar or midline bony tenderness. Normal inspection. NEURO: Alert, awake and oriented x2. Cranial nerves: II through XII grossly intact. Speech and language: Normal with no dysarthria or dysphasia. Motor system: Tone and bulk: Normal: Strength: 5 out of 5 in all 4 extremities; No pronator drift noted. Deep tendon reflexes: 2+ bilaterally symmetrical. Plantar reflex: Downgoing bilaterally. Sensory system: Intact to all modalities of sensation bilaterally. Coordination: Intact to [id number] and [id number] test bilaterally. No ataxia, no dysmetria, or dysdiadochokinesia noted. No intention tremors noted. Gait: Not tested. No signs of meningeal irritation noted. PSYCHIATRIC: Normal mood and affect. Objective Labs 02/09/25 05:25 02/09/25 21:15 Labs: Laboratory Results - last 24 hr 02/09/25 02/09/25 02/09/25 01:30 05:25 08:46 WBC 8.7 RBC 3.32 L Hgb 10.5 L Hct 30.8 L MCV 93 MCH 31.6 MCHC 34.1 RDW Std Deviation 47.5 H Plt Count 150 Neut % (Auto) 51 Lymph % (Auto) 35 [place] % (Auto) 6 Eos % (Auto) 6 Baso % (Auto) 1 Neut # (Auto) 4.5 Lymph # (Auto) 3.1 [place] # (Auto) 0.5 Eos # (Auto) 0.6 H Baso # (Auto) 0.1 Immature Gran # (Auto) 0.07 H Absolute Nucleated RBC 0.00 Immature Gran % 1 H Nucleated RBC % 0 Sodium 148 H 148 H 148 H Potassium 3.1 L D Chloride 119 H Carbon Dioxide 20.9 Anion Gap 8 BUN 8 L Creatinine 0.7 Estim Creat Clear Calc 163.4 eGFR > 60 BUN/Creatinine Ratio 11 L Glucose 115 H Calculated Osmolality 293 Calcium 8.0 L Corrected Calcium 8.9 Phosphorus 2.0 L Magnesium 1.9 Total Bilirubin 0.4 AST 37 H ALT 63 H Alkaline Phosphatase 37 L Total Protein 4.9 L Albumin 2.9 L Globulin 2.0 L Albumin/Globulin Ratio 1.5 02/09/25 21:15 WBC RBC Hgb Hct MCV MCH MCHC RDW Std Deviation Plt Count Neut % (Auto) Lymph % (Auto) [place] % (Auto) Eos % (Auto) Baso % (Auto) Neut # (Auto) Lymph # (Auto) [place] # (Auto) Eos # (Auto) Baso # (Auto) Immature Gran # (Auto) Absolute Nucleated RBC Immature Gran % Nucleated RBC % Sodium 142 Potassium 3.3 L Chloride 111 H Carbon Dioxide 19.7 L Anion Gap 11 BUN 5 L Creatinine 0.6 Estim Creat Clear Calc 190.6 eGFR > 60 BUN/Creatinine Ratio 8 L Glucose 99 Calculated Osmolality 280 Calcium 8.2 L Corrected Calcium 8.8 Phosphorus 2.3 L Magnesium Total Bilirubin AST ALT Alkaline Phosphatase Total Protein Albumin 3.2 L Globulin Albumin/Globulin Ratio ABG Interpretation ABG results: 02/02/25 02/06/25 02/07/25 16:10 12:13 10:45 ABG pH 7.47 H ABG pCO2 24 L ABG pO2 96 ABG HCO3 17 L ABG O2 Saturation 98 ABG Base Excess -5 L VBG pH 7.55 7.47 VBG pCO2 25 L 21 L VBG pO2 113 H 71 H VBG Base Excess 1 -6 L Assessment & Plan Assessment and plan (1) Altered mental status: Status: Acute Assessment and plan: Patient needs repeat MRI brain with sedation and EEG to evaluate further Then consider lumbar puncture under fluoroscopy to evaluate for other causes of encephalopathy. Continue to monitor closely for any seizures. Continue antibiotics: Cefepime and vancomycin (2) Electrolyte imbalance: Status: Acute Assessment and plan: Resolved Continue to monitor closely (3) Encephalopathy acute: Status: Acute Assessment and plan: Significant improvement noted but not Back to baseline. Will continue to monitor closely. (4) Dysphagia: Status: Acute Assessment and plan: Patient underwent esophageal dilatation by GI
[2025-02-10] VITALS (14 sets, daily range): BP systolic 109–155; BP diastolic 65–98; PULSE 93–114; RESP 14–19; TEMP 36.1–36.8; O2SAT 96–195; BMI 42.8
[2025-02-10] MEDS: THIAMINE INJ 500 MG in SODIUM CHLORIDE 0.9% 100 ML 210 MG IV ×3 (05:12→21:03)
[2025-02-10 05:51] LABS: Basophils # (Auto) 0.0 Thou/mm3 (0.0-0.2); Basophils % (Auto) 0 % (0-2.5); Eosinophils # (Auto) 0.6 Thou/mm3 (0.0-0.5); Eosinophils % (Auto) 5 % (0-10); Hematocrit 36.9 % (41.0-53.0); Hemoglobin 12.7 g/dL (13.5-16.0); Immature Granulocytes Auto 0.09 Thou/mm3 (0.00-0.00); Lymphocytes # (Auto) 3.9 Thou/mm3 (1.0-4.8); Lymphocytes % (Auto) 35 % (10-50); Mean Corpuscular HGB Conc 34.4 g/dl (31.0-37.0); Mean Corpuscular Hemoglobin 31.7 pg (25.0-35.0); Mean Corpuscular Volume 92 fL (80-100); Monocytes # (Auto) 0.6 Thou/mm3 (0.0-0.8); Monocytes % (Auto) 5 % (0-12); Neutrophils # (Auto) 6.0 Thou/mm3 (1.8-7.7); Neutrophils % (Auto) 53 % (37-80); Nucleated Red Blood Cell # 0.00 Thou/mm3 (0.00-0.00); Nucleated Red Blood Cell % 0 /100 WBC (0); Platelet Count 130 Thou/mm3 (140-440); RDW Standard Deviation 46.4 fL (35.1-43.9); Red Blood Count 4.01 Miln/mm3 (4.50-5.90); White Blood Count 11.2 Thou/mm3 (3.8-10.6)
[2025-02-10 06:09] LABS: Alanine Aminotransferase 70 U/L (10-49); Albumin, Serum 3.4 gm/dL (3.5-5.0); Albumin/Globulin Ratio 1.4 (1.2-2.2); Alkaline Phosphatase 44 U/L (46-116); Anion Gap 11 (7-16); Aspartate Amino Transferase 49 U/L (0-34); BUN/Creatinine Ratio 11 Ratio (12-20); Bilirubin,Total 0.4 mg/dL (0.3-1.2); Blood Urea Nitrogen 8 mg/dL (9-23); Calcium 8.5 mg/dL (8.3-10.6); Calcium (Corrected) 9.0 mg/dL (8.5-10.1); Carbon Dioxide 22.6 mMol/L (20.0-31.0); Chloride 111 mMol/L (98-107); Creatinine (Component) 0.7 mg/dL (0.6-1.3); Estimated Creatinine Clearance 163.4 mL/min (>60); Globulin 2.4 gm/dL (2.3-3.5); Glucose 100 mg/dL (74-106); Magnesium 2.1 mg/dL (1.6-2.6); Osmolality,Calculated 287 (275-295); Phosphorous 2.2 mg/dL (2.4-5.1); Potassium 3.2 mMol/L (3.4-5.1); Sodium 145 mMol/L (136-145); Total Protein 5.8 gm/dL (5.7-8.2); eGFR > 60 See Note
[2025-02-10] MEDS: DESMOPRESSIN ACETATE 4 MCG/ML VIAL 2 MCG IV (09:32)
[2025-02-10] MEDS: POTASSIUM PHOS 22.5 MMOL in SODIUM CHLORIDE 0.9% 500 ML 500 ML 82.778 MMOL IV ×2 (09:32→18:15)
[2025-02-10] MEDS: CITRIC ACID/SODIUM CITR 15 ML UDC (BICITRA) 30 ML PO ×2 (09:32→21:00)
[2025-02-10] MEDS: POTASSIUM ACET IV (11:06)
[2025-02-10] MEDS: D5W IV (11:06)
[2025-02-10] MEDS: AMINO ACIDS IV (11:06)
--- NOTE | 2025-02-10 11:28 | PD.NEPHPROG ---
Documentation for date of: 02/10/25 Subjective Subjective Interval history: Chart review done and spoke to primary care team. Mr Dye is a 44-year-old gentleman with a past medical history of hypertension, dyslipidemia, reflux, asthma, epilepsy (took phenobarbital 10 years ago), allergies was brought to the emergency department with altered mental status. Patient was altered in the ER and unable to give any history. As per the chart the patient was tachycardic tand was found to have a lactic acid of 10.8 with a white count of 24. Patient was admitted with a diagnosis of sepsis of unknown source. In the last 3 months he has been declining significantly. Last admission to the hospital was December 2024 for dysphagia and had a dilation by Dr. Campos. Patient continues to have symptoms of dysphagia. During this admission he was noted to have 40 pound weight loss and significant altered mental status. Patient was seen by neurology-CT brain negative. UA did not show any activity. LP was supposed to be done yesterday but unable to. Patient was seen by GI. could not get significant history as patient seems to be very sleepy. He has extensive workup done during this admission-CT abdomen showed nonobstructing renal calculi with no hydronephrosis. Chest x-ray negative. Abdominal ultrasound showed gallstones with no cholecystitis. Also has fatty liver. Echocardiogram showed ejection fraction 60%. EEG no seizure activity. MRI brain negative. CTA abdomen showed no ischemia. Lumbar puncture attempted but unsuccessful. Patient going for repeat LP possibly today with IR. 02/07/2025 patient currently seen in telemetry. Labs showed blood pressure 121/89, heart rate 116. Sleepy. White count 7.3, hemoglobin 11.8, platelets 154. Coags negative. ABG yesterday showed pH 7.47, pCO2 74, HCO3 17. carboxyhemoglobin 4.4. Sodium 153, potassium 3.4, chloride 125, bicarbonate 15.6, creatinine 0.6, lactic acid 4.5, calcium 7.7, phosphorus 1.7, magnesium 1.5, LFTs elevated, albumin 2.8 urinalysis and urine lites pending is nonreactive cocci negative hep panel negative HIV negative 02/10/2025 patient currently seen in telemetry today still with NG tube suction. More alert and awake and able to converse with me today. Started p.o. Bicitra. Urinalysis Showed pH of 5.0, specific gravity 1032. Urine lytes positive for anion gap. Review of Systems Review of Systems Narrative Review of Systems: Limited although more alert and awake than yesterday. Denies any chest pain or abdominal pain. No diarrhea. Exam Vital Signs Temp Pulse Resp BP Pulse Ox O2 Del Method 36.3 C 93 15 128/92 H 99 Room Air 02/10/25 08:00 02/10/25 08:00 02/10/25 08:00 02/10/25 08:00 02/10/25 08:00 02/10/25 08:00 Narrative Exam GENERAL APPEARANCE: Patient seems to be comfortable, adequately hydrated and nourished. NG tube to suction HEENT: EOMI, PERRLA NECK: Neck supple, no JVD or bruit CARDIOVASCULAR: Heart regular, no murmurs LUNGS/CHEST: Chest clear to auscultation. No rales, rhonchi, wheezing ABDOMEN: Soft, nontender, nondistended. No masses. Normal bowel sounds. EXTREMITIES: No edema, clubbing or cyanosis. SKIN: Skin exam normal without any rashes MUSCULOSKELETAL: in bed NEUROLOGICAL : Slow in response. More alert and awake Objective Labs 02/11/25 05:20 02/11/25 05:20 Labs: Laboratory Results - last 24 hr 02/09/25 02/10/25 21:15 05:10 WBC 11.2 H RBC 4.01 L Hgb 12.7 L D Hct 36.9 L MCV 92 MCH 31.7 MCHC 34.4 RDW Std Deviation 46.4 H Plt Count 130 L Neut % (Auto) 53 Lymph % (Auto) 35 Swift % (Auto) 5 Eos % (Auto) 5 Baso % (Auto) 0 Neut # (Auto) 6.0 Lymph # (Auto) 3.9 Swift # (Auto) 0.6 Eos # (Auto) 0.6 H Baso # (Auto) 0.0 Immature Gran # (Auto) 0.09 H Absolute Nucleated RBC 0.00 Immature Gran % 1 H Nucleated RBC % 0 Sodium 142 145 Potassium 3.3 L 3.2 L Chloride 111 H 111 H Carbon Dioxide 19.7 L 22.6 Anion Gap 11 11 BUN 5 L 8 L Creatinine 0.6 0.7 Estim Creat Clear Calc 190.6 163.4 eGFR > 60 > 60 BUN/Creatinine Ratio 8 L 11 L Glucose 99 100 Calculated Osmolality 280 287 Calcium 8.2 L 8.5 Corrected Calcium 8.8 9.0 Phosphorus 2.3 L 2.2 L Magnesium 2.1 Total Bilirubin 0.4 AST 49 H ALT 70 H Alkaline Phosphatase 44 L Total Protein 5.8 Albumin 3.2 L 3.4 L Globulin 2.4 Albumin/Globulin Ratio 1.4 ABG Interpretation ABG results: 02/02/25 02/06/25 02/07/25 16:10 12:13 10:45 ABG pH 7.47 H ABG pCO2 24 L ABG pO2 96 ABG HCO3 17 L ABG O2 Saturation 98 ABG Base Excess -5 L VBG pH 7.55 7.47 VBG pCO2 25 L 21 L VBG pO2 113 H 71 H VBG Base Excess 1 -6 L Assessment & Plan Assessment and plan (1) Electrolyte imbalance: Status: Acute Assessment and plan: Patient has significant electrolyte imbalance-hypernatremia, hyperchloremia, non-anion gap metabolic acidosis, hypophosphatemia, hypomagnesemia, hypocalcemia. Not on any medications which can cause these. All these can be seen in partial central DI versus proximal RTA. Primary team suspecting refeeding syndrome vs severe thiamine deficiency. Currently on high-dose thiamine, pyridoxine. Added bicarbonate. Replace electrolytes. (2) Altered mental status: Status: Acute Assessment and plan: So far all the workup seems to be negative. Neurology to decide. Myasthenia workup pending (3) Encephalopathy acute: Status: Acute Assessment and plan: Workup so far negative. Patient started to improve with thiamine. (4) Dysphagia: Status: Acute Assessment and plan: Patient has NG tube to suction. Additional Assessment & Plan Additional Plan: Thank you Ezekiel for allowing me to participate in the care of Mr. Dye.
[2025-02-10 13:12] LABS: Sodium 144 mMol/L (136-145)
--- NOTE | 2025-02-10 13:27 | PD.RESPRO ---
Documentation for date of: 02/10/25 Senior resident attestation: Patient evaluated and examined at the bedside, plan of care discussed with rest of the team including my attending physician, except as noted. #Acute encephalopathy?likely Wernicke encephalopathy in the setting of refeeding syndrome and thiamine deficiency, noted remarkable improvement in mental status following IV thiamine supplementation. Started the patient on IV thiamine 500 mg , now decreased to IV thiamine 250mg 3 times daily #Refeeding syndrome, hypophosphatemia, hypokalemia, hyper chloremia, positive anion gap,?multiple electrolyte abnormalities in the setting of refeeding syndrome,Dietary is consulted, patient was started on partial parenteral nutrition. replete electrolytes as needed. #High anion gap hyperchloremic metabolic acidosis, lactic acidosis now resolved, nephrology was consulted for severe electrolyte abnormalities, despite electrolyte replacement, per nephrology possible causes include proximal RTA, will recommended starting patient on desmopressin as patient had excessive diuresis. #Ileius vs incomplete SBO - pt has been NPO for over 5 days, NG to suction, daily output 300ml, ordered Gastrograffin study as patient hasnet had a bowel movement since admission despite repeated enemas, bowel sounds sluggish. General surgery is consulted, Dr Mancini recommendations appreciated. #Concern for GI bleed?NG tube is placed attached to HEMA, dark coffee-ground emesis, also noted downtrending hemoglobin concern for GI bleed. IV Protonix twice daily started, daily CBCs, transfuse if hemoglobin less than 7, GI is consulted by Dr. Campos , EGD showed non bleeding erosions, gastritis. Quresh PGY3 Subjective Subjective Interval history: Overnight, KUB done showing moderate colonic ileus with obstruction. NG tube suctioned out 400 mL overnight. Patient still has not had a bowel movement. Patient seen examined at bedside. Mentation continues to improve however patient still only oriented to name only. Denies any bodily pain. Labs and vitals reviewed. Remains slightly tachycardic. White count increased from 8.7 to 11.2. Sodium 145. K 3.2, repleted with K phos x 2. Patient was started on PPN last night with D5W running at 120 cc an hour. Continue thiamine infusions. Do not plan to start antibiotics with elevation white count as patient mentation is greatly improved and patient had already received cefepime for 7 days prior. Patient did not have a bowel movement with subset enema yesterday, mineral oil enema ordered today. Exam Vital Signs Temp Pulse Resp BP Pulse Ox O2 Del Method 97.8 F 102 H 15 155/98 H 98 Room Air 02/10/25 12:00 02/10/25 12:00 02/10/25 12:00 02/10/25 12:00 02/10/25 12:00 02/10/25 12:00 Narrative Exam GENERAL: AOx1 to name only, following commands, improvement of encephalopathy, speaking in sentences, poor memory, NG tube in place draining black fluid HEENT: mucous membranes dry, bilateral sclera anicteric, tenderness at L mastoid, +dental caries and front L tooth absent CARDIOVASCULAR: regular rate and rhythm, S1/S2 present, no murmurs appreciated PULMONARY: clear to auscultation bilaterally, expiratory coarse breath sounds BL ABDOMINAL: soft, non-tender, non-distended, no rebound/guarding, bowel sounds present EXTREMITIES: no peripheral edema SKIN: warm and dry, intact, no wounds NEURO: CN II-XII grossly intact, decreased BLE strength Objective Labs 02/11/25 05:20 02/11/25 05:20 Labs: Laboratory Results - last 24 hr 02/09/25 02/10/25 02/10/25 21:15 05:10 12:32 WBC 11.2 H RBC 4.01 L Hgb 12.7 L D Hct 36.9 L MCV 92 MCH 31.7 MCHC 34.4 RDW Std Deviation 46.4 H Plt Count 130 L Neut % (Auto) 53 Lymph % (Auto) 35 Lyman % (Auto) 5 Eos % (Auto) 5 Baso % (Auto) 0 Neut # (Auto) 6.0 Lymph # (Auto) 3.9 Lyman # (Auto) 0.6 Eos # (Auto) 0.6 H Baso # (Auto) 0.0 Immature Gran # (Auto) 0.09 H Absolute Nucleated RBC 0.00 Immature Gran % 1 H Nucleated RBC % 0 Sodium 142 145 144 Potassium 3.3 L 3.2 L Chloride 111 H 111 H Carbon Dioxide 19.7 L 22.6 Anion Gap 11 11 BUN 5 L 8 L Creatinine 0.6 0.7 Estim Creat Clear Calc 190.6 163.4 eGFR > 60 > 60 BUN/Creatinine Ratio 8 L 11 L Glucose 99 100 Calculated Osmolality 280 287 Calcium 8.2 L 8.5 Corrected Calcium 8.8 9.0 Phosphorus 2.3 L 2.2 L Magnesium 2.1 Total Bilirubin 0.4 AST 49 H ALT 70 H Alkaline Phosphatase 44 L Total Protein 5.8 Albumin 3.2 L 3.4 L Globulin 2.4 Albumin/Globulin Ratio 1.4 ABG Interpretation ABG results: 02/02/25 02/06/25 02/07/25 16:10 12:13 10:45 ABG pH 7.47 H ABG pCO2 24 L ABG pO2 96 ABG HCO3 17 L ABG O2 Saturation 98 ABG Base Excess -5 L VBG pH 7.55 7.47 VBG pCO2 25 L 21 L VBG pO2 113 H 71 H VBG Base Excess 1 -6 L Quality Measures Quality Measures VTE prophylaxis Assessment & Plan Assessment Current Active Medications: Generic Name Dose Route Start Last Admin Trade Name Freq PRN Reason Stop Dose Admin Acetaminophen 650 mg 02/02/25 16:12 Acetaminophen 325 Mg Tablet PO 03/04/25 15:11 Q6H PRN Fever >99.9 Citric Acid/Sodium Citrate 30 ml 02/08/25 09:00 02/10/25 09:32 Citric Acid/Sodium Citr 15 Ml Udc (Bicitra) PO 03/10/25 08:59 30 ml BID ROBBIE Administration Dextrose 50 ml 02/02/25 17:28 02/07/25 06:11 Dextrose 50%-Water Inj 50 Ml Syringe IV 03/04/25 17:27 50 ml Q15MIN PRN Administration BG <50 OR BG <70 & pt unresponsive Glucagon 1 mg 02/02/25 17:28 Glucagon Inj 1 Mg Vial IM Q15MIN PRN BG <70, and no IV access Thiamine HCl 500 mg/ Sodium 105 mls @ 210 mls/hr 02/09/25 16:00 02/10/25 06:02 Chloride IV 03/11/25 15:59 Infused TID ROBBIE Infusion Fat Emulsion Intravenous 500 mls @ 32 mls/hr 02/09/25 18:00 02/09/25 18:10 Intralipid 20% Iv IV 03/11/25 17:59 32 mls/hr [id number] ROBBIE Administration Potassium Phosphate 22.5 mmol/ 507.5 mls @ 82.778 mls/hr 02/10/25 08:19 02/10/25 09:32 Sodium Chloride IV 02/10/25 14:26 82.778 mls/hr X1 ONE Administration Potassium Phosphate 22.5 mmol/ 507.5 mls @ 82.778 mls/hr 02/10/25 15:00 Sodium Chloride IV 02/10/25 21:07 X1 ONE Potassium Acetate 40 meq/ 2,020 mls @ 120 mls/hr 02/10/25 11:00 02/10/25 11:06 Amino Acids IV 02/11/25 03:49 120 mls/hr .[id number] ROBBIE Administration Multivitamins/Minerals 10 ml/ 1,010 mls @ 120 mls/hr 02/11/25 04:00 Amino Acids IV 02/11/25 12:24 .[id number] ROBBIE Insulin Human Lispro 0 unit 02/07/25 00:00 02/10/25 11:31 Insulin Lispro (Admelog) 1 Unit/0.01 Ml Unit SC 03/09/25 00:00 Not Given Q6HR [facility] Protocol Ondansetron HCl 4 mg 02/02/25 15:17 02/06/25 18:07 Ondansetron Inj 2 Mg/Ml Inj 2 Ml IVP 03/04/25 15:16 4 mg Q6H PRN Administration NAUSEA OR VOMITING Protocol Pantoprazole Sodium 40 mg 02/09/25 09:00 02/10/25 09:32 Pantoprazole Inj 40 Mg Vial IVP 03/11/25 08:59 40 mg BID ROBBIE Administration Potassium Phos/Sodium Phos 1 packet 02/05/25 21:00 02/07/25 09:15 Naph,[facility] Mbdb 1 Packet (1.5 Gm) PO 03/07/25 20:59 Not Given On Hold: 02/07/25 10:47 BID ROBBIE Pyridoxine HCl 100 mg 02/07/25 17:15 02/10/25 09:32 Pyridoxine Inj 100 Mg/Ml Vial IM 03/09/25 17:14 100 mg QDAY ROBBIE Administration Plan Logan Dye 44M with pmhx significant for HTN, hx of gastric angiodysplasias s/p cautery 12/20/24, GERD, asthma, HLD, childhood epilepsy (last seizure was at age 9, on phenobarbital in the past) presented to [facility] ED 02/02 for AMS and generalized weakness admitted for encephalopathy with elevated lactic acid and possible thiamine deficiency. #Acute encephalopathy 06/10 #Elevated lactic acid 06/10 #?Thiamine deficiency #Distended small bowel loops Patient presented with altered mental status, was unable to give a history but was able to deny or admit symptoms for a review of systems. Patient met severe sepsis criteria on admission with tachycardia and leukocytosis in addition to lactic acid of 10.8, which is evidence of end organ damage due to hypoperfusion, however currently no source of infection identified and further differentials as below. Spoke with family who reported younger brother of possible BALTAZAR virus at age 17. Admission VBG showed a pH of 7.55 and a pCO2 of 25. Ammonia mildly elevated 36. Syphillis cocci HIV and hep panel neg. UDS neg, salicylates and acetaminophen neg. UA 1+ protein, 2+ blood, 54 RBC, 24 WBC, LE+. CK wnl 50, beta hydroxy 0.6, 02/06 ABG 7.47/24/96/17. 02/07 VBG 7.47//71/95 Lactic acid on admission 10.8->6.2->3.8->2.6 but then uptrended 4.1->2.7->5.2->4.5->2.5->3.1 despite fluids, eventually downtrended to 2.5-> 2.0. CT abdomen pelvis was negative for hydronephrosis or ureteral calculi. CXR unremarkable. UCx and BCx, likely due to recent outpatient antibiotic course. 02/04 Echo showed EF estimated 60-65% The right ventricle is normal in size and systolic function. Normal aortic valve. Trace mitral and trace tricuspid regurgitation NO EVIDENCE OF VEGETATIONS. TDS due to patient lying supine and non- cooperative EEG was abnormal with diffuse slowing suggestive of diffuse encephalopathy of metabolic, degenerative or vascular origin. No epileptiform discharges noted. Brain MRI negative for acute hemorrhage, mass effect or midline shift, no acute infarct or microvascular white matter change. 02/06 Abd XR showed multiple air distended small bowel loops in the central abdomen, orogastric tube in stomach but stomach remains air distended 02/07 CTA with cont shows 4 mm lower pole nonobstructing right renal calculus, no hydronephrosis or ureteral calculi. Normal appendix. Mildly fluid distended small bowel loops, consider ileus, enteritis such as Crohn's disease. No findings diagnostic for ischemic small bowel but clinical correlation is advised. 02/07 CT orbit/face shows significant bilateral chronic mastoiditis, negative for acute mastoiditis, negative for otitis media or acquired cholesteatoma Ddx: Source of elevated lactic acid and/or encephalopathy possibly 2/2 thiamine deficiency, bowel microischemia, small intestinal bacterial overgrowth, UTI, cefepime s/e, Patient's mentation continued to worsened until 02/08, suddenly improved able to recognize family members and speak in full sentences, however today, mental status worsening. Vanc (02/02-02/08), Cefepime (02/02-02/09), metronidazole (02/07-02/09) Plan: - Neurology consulted, recs appreciated - GI consulted for possible ileus vs enteritis per CTA AP, recs appreciated: B12 injection x1, pyridoxine IM QD, EGD prior to discharge iso black NG tube secretions, will consider EGD when secretions have decreased - Continue IV thiamine 500 mg TID (02/09-02/10), then downtitrate to 250 mg TID for 5 days, then 100 mg QD - F/u prolactin, thiamine, KOJO, dsDNA, MUSC antibodies, aceylcholine receptor antibodies - PT ordered, recommends SNF - NG tube continues to drain, plan to discontinue once patient has bowel movement and secretions decrease - PPN at 120 cc/hr for nutrition, 3L/24h (02/09- #Electrolyte abnormalities #Hypernatremia, improved #Hypokalemia #Hyperchloremia #Hypophosphatemia #Hypomagnesemia #Hypocalcemia, resolved Patient presented with Na of 146, with gradual increase everyday despite D5W. Likely 2/2 poor PO intake 2/2 AMS. Cannot exclude neurological cause given patient is becoming more encephalopathic everyday. Ddx includes small bowel microischemia, RTA, HAGMA with respiratory compensation. Delta Delta calculated -8 with 02/07 labs signifying one of the three following: Mixed HAGMA and NAGMA. Mixed HAGMA with chronic respiratory alkalosis plys hyperchloremic acidosis. HAGMA with preexisting low anion gap state (hypoalbuminemia, paraproteinemia, etc). 02/08 Ulytes sodium 145 protein 74 and potassium 40 and chloride 136. And repeat UA 1+ ketones no indication of UTI. Likely severely dehydrated due to poor p.o. intake for months. Free water decifit 6.2L. Patient has received cumulative 14L of fluids from 02/08 since admission with recorded output 1575 mL with Guo inserted on 02/06 however some of the fluids were NS. Plan: - Nephrology consulted, recs appreciated: - bicitra BID and oral free water flushes once can tolerate oral as currently NG tube is in place, - Continue D5W 120 cc/hr through PPN with goal of decreasing sodium 10-12 mEq over 24h, decrease rate or stop accordingly if Na exceeds goal - Continue desmopressin 2 mcg QD iso sudden increase in urine output on 02/08 - CTM sodium - Fluids as above #Transaminitis, improving #Coagulopathy, improving #Metabolic dysfunction-associated steatotic liver disease #Non-obstructing gallstones On admission, PT elevated 14.6 with INR 1.4, and AST ALT 80/217. AST/ALT initially peaked and downtrended. Not on hepatotoxic home medication and denies alcohol use. Denies RUQ pain. Abdominal ultrasound negative for cholelithiasis or cholecystitis, multiple gallstones, liver 14.5 cm fatty infiltration no focal liver lesions Ddx includes acidotic state with elevated lactic acid impairing coagulation with subsequent liver and tissue damage. Plan: - CTM LFTs - Avoid hepatotoxic medications - Fluids as above for continued elevated lactic acid #GERD Per history taken from the patient's mother Plan: - IV pantoprazole 40 mg BID #Hypercholesterolemia Per history taken from patient's mother. Patient takes atorvastatin 40 mg p.o. daily at home Plan: - Hold in the presence of transaminitis #Asthma Per patient history gathered from patient's mother. Patient montelukast 10 mg p.o. daily Plan: - No indication for treatment at this time as patient is asymptomatic #Hyperglycemia (Resolved) Fingerstick glucose 237 on arrival. Per patient's mother, he does not have a history of diabetes. 02/03/25 A1c 5.9 Plan: - SSI in place #Hyperthyroidism (Resolved) Thyroxine 13.6 repeat thyroxine 1.18. Consider acute phase thyrotoxicosis reaction over underlying thyroid condition Hospital management: Lines: PIV Diet: NPO Bowel: None GI prophylaxis: IV pantoprazole 40 mg BID DVT prophylaxis: SCDs Disposition: tele, encephalopathy worsening, pending GI and nephro consult, NG tube still in place CODE STATUS: FULL CODE Plan of care discussed with attending Dr. Dailey, and PGY-3 Dr. Tamayo. Mercedes Yuen, DO PGY-1 Internal Medicine Attending Provider Attestation/Addendum I have examined the patient, reviewed labs and imaging findings, discussed the case with the resident(s), and reviewed entered orders. I agree with the plan of care as outlined in this note, with these additional summaries/recommendations: Patient seen at bedside. No acute overnight events. He continues to show improvement in his mental status but does have intermittent episodes of confusion where he does not follow commands. He was placed on bilateral wrist restraints again last night and we will attempt to remove today. He remains encephalopathic but is improving. Patient appears to be responding well to thiamine which does support the diagnosis of thiamine deficiency/Wernicke's encephalopathy. Thiamine dose increased. Thiamine level pending. We will follow-up further neurology recommendations. Patient was started on PPN yesterday and tolerating well. Gastroenterology and dietary following. Patient has a history of dysphagia and will require EGD prior to discharge although patient still has significant output in NG tube which we will continue for now. In-house nephrology following for acid-base disturbances which has now resolved today. NG tube still in place for previously suspected small bowel obstruction. Abd xr is still showing ileus at this time and NG tube still in place. Patient and family updated on the plan and in agreement. All questions answered to satisfaction. Please see residents note for additional details and management. Dr. Ashlie MD
--- NOTE | 2025-02-10 15:57 | PC.SS ---
Rounding: Pending EGD, DC plan SNF vs HH
[2025-02-10] MEDS: FAT EMULSIONS 20% IV 500 ML 32 ML IV (18:00)
--- NOTE | 2025-02-10 19:21 | PC.NURSE ---
patient left for egd with ppn running
[2025-02-10 22:19] LABS: Albumin, Serum 3.2 gm/dL (3.5-5.0); Anion Gap 8 (7-16); BUN/Creatinine Ratio 17 Ratio (12-20); Blood Urea Nitrogen 10 mg/dL (9-23); Calcium 8.1 mg/dL (8.3-10.6); Calcium (Corrected) 8.7 mg/dL (8.5-10.1); Carbon Dioxide 23.7 mMol/L (20.0-31.0); Chloride 111 mMol/L (98-107); Creatinine (Component) 0.6 mg/dL (0.6-1.3); Estimated Creatinine Clearance 190.6 mL/min (>60); Glucose 92 mg/dL (74-106); Osmolality,Calculated 283 (275-295); Phosphorous 2.5 mg/dL (2.4-5.1); Potassium 3.4 mMol/L (3.4-5.1); Sodium 143 mMol/L (136-145); eGFR > 60 See Note
[2025-02-11 04:00] VITALS: BP 107/59; PULSE 99; RESP 15; TEMP 36.4; O2SAT 95
[2025-02-11] MEDS: D5W IV (04:17)
[2025-02-11] MEDS: AMINO ACIDS IV (04:17)
[2025-02-11] MEDS: MULTIVITAMIN IV ×2 (04:17→13:40)
[2025-02-11] MEDS: THIAMINE INJ 500 MG in SODIUM CHLORIDE 0.9% 100 ML 210 MG IV ×3 (05:27→21:43)
[2025-02-11 06:00] VITALS: BMI 42.8
[2025-02-11 06:02] LABS: Basophils # (Auto) 0.0 Thou/mm3 (0.0-0.2); Basophils % (Auto) 0 % (0-2.5); Eosinophils # (Auto) 0.4 Thou/mm3 (0.0-0.5); Eosinophils % (Auto) 3 % (0-10); Hematocrit 37.0 % (41.0-53.0); Hemoglobin 12.6 g/dL (13.5-16.0); Immature Granulocytes Auto 0.18 Thou/mm3 (0.00-0.00); Lymphocytes # (Auto) 3.1 Thou/mm3 (1.0-4.8); Lymphocytes % (Auto) 22 % (10-50); Mean Corpuscular HGB Conc 34.1 g/dl (31.0-37.0); Mean Corpuscular Hemoglobin 31.0 pg (25.0-35.0); Mean Corpuscular Volume 91 fL (80-100); Monocytes # (Auto) 1.4 Thou/mm3 (0.0-0.8); Monocytes % (Auto) 10 % (0-12); Neutrophils # (Auto) 9.1 Thou/mm3 (1.8-7.7); Neutrophils % (Auto) 64 % (37-80); Nucleated Red Blood Cell # 0.00 Thou/mm3 (0.00-0.00); Nucleated Red Blood Cell % 0 /100 WBC (0); Platelet Count 140 Thou/mm3 (140-440); RDW Standard Deviation 44.9 fL (35.1-43.9); Red Blood Count 4.07 Miln/mm3 (4.50-5.90); White Blood Count 14.3 Thou/mm3 (3.8-10.6)
[2025-02-11 06:31] LABS: Alanine Aminotransferase 51 U/L (10-49); Albumin, Serum 3.5 gm/dL (3.5-5.0); Albumin/Globulin Ratio 1.4 (1.2-2.2); Alkaline Phosphatase 45 U/L (46-116); Anion Gap 11 (7-16); Aspartate Amino Transferase 35 U/L (0-34); BUN/Creatinine Ratio 16 Ratio (12-20); Bilirubin,Total 0.4 mg/dL (0.3-1.2); Blood Urea Nitrogen 8 mg/dL (9-23); Calcium 9.0 mg/dL (8.3-10.6); Calcium (Corrected) 9.4 mg/dL (8.5-10.1); Carbon Dioxide 23.3 mMol/L (20.0-31.0); Chloride 110 mMol/L (98-107); Creatinine (Component) 0.5 mg/dL (0.6-1.3); Estimated Creatinine Clearance 228.7 mL/min (>60); Globulin 2.5 gm/dL (2.3-3.5); Glucose 92 mg/dL (74-106); Magnesium 1.7 mg/dL (1.6-2.6); Osmolality,Calculated 285 (275-295); Phosphorous 1.9 mg/dL (2.4-5.1); Potassium 3.6 mMol/L (3.4-5.1); Sodium 144 mMol/L (136-145); Total Protein 6.0 gm/dL (5.7-8.2); eGFR > 60 See Note
[2025-02-11 07:19] LABS: Vitamin B1 (Thiamine)* <6 nmol/L (8-30)
[2025-02-11 07:40] VITALS: BP 142/74; PULSE 114; RESP 15; TEMP 36.1; O2SAT 98
[2025-02-11 08:00] VITALS: PULSE 109
--- NOTE | 2025-02-11 08:49 | ESPR_ITS ---
Documentation for date of: 02/11/25 Subjective Subjective Interval history: Mr Dye is a 44-year-old gentleman with a past medical history of hypertension, dyslipidemia, reflux, asthma, epilepsy (took phenobarbital 10 years ago), allergies was brought to the emergency department with altered mental status. Patient was altered in the ER and unable to give any history. As per the chart the patient was tachycardic tand was found to have a lactic acid of 10.8 with a white count of 24. Patient was admitted with a diagnosis of sepsis of unknown source. In the last 3 months he has been declining significantly. Last admission to the hospital was December 2024 for dysphagia and had a dilation by Dr. Campos. Patient continues to have symptoms of dysphagia. During this admission he was noted to have 40 pound weight loss and significant altered mental status. Patient was seen by neurology-CT brain negative. UA did not show any activity. LP was supposed to be done yesterday but unable to. Patient was seen by GI. could not get significant history as patient seems to be very sleepy. He has extensive workup done during this admission-CT abdomen showed nonobstructing renal calculi with no hydronephrosis. Chest x-ray negative. Abdominal ultrasound showed gallstones with no cholecystitis. Also has fatty liver. Echocardiogram showed ejection fraction 60%. EEG no seizure activity. MRI brain negative. CTA abdomen showed no ischemia. Lumbar puncture attempted but unsuccessful. Patient going for repeat LP possibly today with IR. 02/07/2025 patient currently seen in telemetry. Labs showed blood pressure 121/89, heart rate 116. Sleepy. White count 7.3, hemoglobin 11.8, platelets 154. Coags negative. ABG yesterday showed pH 7.47, pCO2 74, HCO3 17. carboxyhemoglobin 4.4. Sodium 153, potassium 3.4, chloride 125, bicarbonate 15.6, creatinine 0.6, lactic acid 4.5, calcium 7.7, phosphorus 1.7, magnesium 1.5, LFTs elevated, albumin 2.8 urinalysis and urine lites pending is nonreactive cocci negative hep panel negative HIV negative 02/08/2025 patient currently seen in telemetry today still with NG tube suction. More alert and awake and able to converse with me today. Started p.o. Bicitra. Urinalysis showed pH of 5.0, specific gravity 1032. Urine lytes positive for anion gap. 02/09/2025: Patient currently seen in telemetry. Mentation fluctuates; today more lethargic and minimally responsive compared to yesterday when he was conversant. Does not follow commands consistently. NG tube remains in place on low intermittent suction. No bowel movement reported overnight. Guo in place with adequate urine output. Blood pressure 93/71, heart rate 90. Sodium 148, chloride 119, bicarbonate 20, creatinine 0.7, phosphorus 2.0, magnesium 1.9, calcium 8.9. On D5W infusion and desmopressin. K-Phos started for hypophosphatemia. Lactic acid remains downtrended. Continues on cefepime and Flagyl. 02/11/2025: Patient seen in telemetry. Mentation improving; awake, talkative, follows commands. Moves all extremities. Denies nausea, vomiting, or pain. NG tube remains in place with ongoing dark output. Urine output stable. On PPN and D5W 120 mL/hr with desmopressin 2 mcg daily. Continues on high-dose thiamine 500 mg IV BID after confirmed deficiency. No fevers. Mild tachycardia persists. Labs today: WBC 14.3, Hgb 12.6, Na 144, K 3.6, Cl 110, Ca 9.4, Phos 1.9, Mg 1.7, Cr 0.5. Exam Vital Signs Temp Pulse Resp BP Pulse Ox O2 Del Method O2 Flow Rate 97 F 114 H 15 142/74 H 98 Nasal Cannula 2 02/11/25 07:40 02/11/25 07:40 02/11/25 07:40 02/11/25 07:40 02/11/25 07:40 02/11/25 07:40 02/11/25 07:40 Narrative Exam GENERAL: Alert, conversant, no acute distress; NG tube in place draining dark fluid. HEENT: MMM, PERRLA, no scleral icterus. NECK: Supple, no JVD. CV: Regular rate and rhythm, no murmurs. RESP: Clear to auscultation bilaterally. ABDOMEN: Soft, mildly distended, non-tender, bowel sounds present. EXTREMITIES: No edema; moves all extremities. SKIN: Warm, dry, intact. NEURO: Oriented to name, follows commands, speech clear; strength improved in all extremities Objective Labs 02/11/25 05:20 02/11/25 05:20 Labs: Laboratory Results - last 24 hr 02/04/25 02/10/25 02/10/25 12:38 12:32 21:35 WBC RBC Hgb Hct MCV MCH MCHC RDW Std Deviation Plt Count Neut % (Auto) Lymph % (Auto) Dodge % (Auto) Eos % (Auto) Baso % (Auto) Neut # (Auto) Lymph # (Auto) Dodge # (Auto) Eos # (Auto) Baso # (Auto) Immature Gran # (Auto) Absolute Nucleated RBC Immature Gran % Nucleated RBC % Sodium 144 143 Potassium 3.4 Chloride 111 H Carbon Dioxide 23.7 Anion Gap 8 BUN 10 Creatinine 0.6 Estim Creat Clear Calc 190.6 eGFR > 60 BUN/Creatinine Ratio 17 Glucose 92 Calculated Osmolality 283 Calcium 8.1 L Corrected Calcium 8.7 Phosphorus 2.5 Magnesium Total Bilirubin AST ALT Alkaline Phosphatase Total Protein Albumin 3.2 L Globulin Albumin/Globulin Ratio Thiamine (Vit B1) Barb <6 L 02/11/25 05:20 WBC 14.3 H RBC 4.07 L Hgb 12.6 L Hct 37.0 L MCV 91 MCH 31.0 MCHC 34.1 RDW Std Deviation 44.9 H Plt Count 140 Neut % (Auto) 64 Lymph % (Auto) 22 Dodge % (Auto) 10 Eos % (Auto) 3 Baso % (Auto) 0 Neut # (Auto) 9.1 H Lymph # (Auto) 3.1 Dodge # (Auto) 1.4 H Eos # (Auto) 0.4 Baso # (Auto) 0.0 Immature Gran # (Auto) 0.18 H Absolute Nucleated RBC 0.00 Immature Gran % 1 H Nucleated RBC % 0 Sodium 144 Potassium 3.6 Chloride 110 H Carbon Dioxide 23.3 Anion Gap 11 BUN 8 L Creatinine 0.5 L Estim Creat Clear Calc 228.7 eGFR > 60 BUN/Creatinine Ratio 16 Glucose 92 Calculated Osmolality 285 Calcium 9.0 Corrected Calcium 9.4 Phosphorus 1.9 L Magnesium 1.7 Total Bilirubin 0.4 AST 35 H ALT 51 H Alkaline Phosphatase 45 L Total Protein 6.0 Albumin 3.5 Globulin 2.5 Albumin/Globulin Ratio 1.4 Thiamine (Vit B1) Barb ABG Interpretation ABG results: 02/02/25 02/06/25 02/07/25 16:10 12:13 10:45 ABG pH 7.47 H ABG pCO2 24 L ABG pO2 96 ABG HCO3 17 L ABG O2 Saturation 98 ABG Base Excess -5 L VBG pH 7.55 7.47 VBG pCO2 25 L 21 L VBG pO2 113 H 71 H VBG Base Excess 1 -6 L Quality Measures Quality Measures VTE prophylaxis Assessment & Plan Assessment Current Active Medications: Generic Name Dose Route Start Last Admin Trade Name Freq PRN Reason Stop Dose Admin Acetaminophen 650 mg 02/02/25 16:12 Acetaminophen 325 Mg Tablet PO 03/04/25 15:11 Q6H PRN Fever >99.9 Atorvastatin Calcium 40 mg 02/11/25 09:00 Atorvastatin Calcium 20 Mg Tablet PO 03/13/25 08:59 DAILY ROBBIE Citric Acid/Sodium Citrate 30 ml 02/08/25 09:00 02/10/25 21:00 Citric Acid/Sodium Citr 15 Ml Udc (Bicitra) PO 03/10/25 08:59 30 ml BID ROBBIE Administration Dextrose 50 ml 02/02/25 17:28 02/07/25 06:11 Dextrose 50%-Water Inj 50 Ml Syringe IV 03/04/25 17:27 50 ml Q15MIN PRN Administration BG <50 OR BG <70 & pt unresponsive Fluticasone Propionate 2 spray 02/11/25 09:00 Fluticasone Javad Pullman 0.05% 16 Gm Btl NASAL 03/13/25 08:59 DAILY ROBBIE Glucagon 1 mg 02/02/25 17:28 Glucagon Inj 1 Mg Vial IM Q15MIN PRN BG <70, and no IV access Thiamine HCl 500 mg/ Sodium 105 mls @ 210 mls/hr 02/09/25 16:00 02/11/25 06:12 Chloride IV 03/11/25 15:59 Infused TID ROBBIE Infusion Fat Emulsion Intravenous 500 mls @ 32 mls/hr 02/09/25 18:00 02/10/25 18:00 Intralipid 20% Iv IV 03/11/25 17:59 32 mls/hr [id number] ROBBIE Administration Multivitamins/Minerals 10 ml/ 1,010 mls @ 120 mls/hr 02/11/25 04:00 02/11/25 04:17 Amino Acids IV 02/11/25 12:24 120 mls/hr .[id number] ROBBIE Administration Sodium Chloride 500 mls @ 20 mls/hr 02/10/25 19:10 02/10/25 21:01 Ns IV 02/11/25 19:09 Not Given .Q24H ONE Magnesium Sulfate 4 gm in 50 mls @ 12.5 mls/hr 02/11/25 07:59 Magnesium Sulfate Ivpb IV 02/11/25 11:58 X1 ONE Potassium Phosphate 15 mmol in 250 mls @ 83.333 mls/hr 02/11/25 08:15 Pot Phos 15 Mmol In Ns 250 Ml IV 02/11/25 14:14 Q3H ROBBIE Insulin Human Lispro 0 unit 02/07/25 00:00 02/11/25 05:46 Insulin Lispro (Admelog) 1 Unit/0.01 Ml Unit SC 03/09/25 00:00 Not Given Q6HR ROBBIE Protocol Montelukast Sodium 10 mg 02/11/25 09:00 Montelukast Sodium 10 Mg Tablet PO 03/13/25 08:59 DAILY ROBBIE Ondansetron HCl 4 mg 02/02/25 15:17 02/06/25 18:07 Ondansetron Inj 2 Mg/Ml Inj 2 Ml IVP 03/04/25 15:16 4 mg Q6H PRN Administration NAUSEA OR VOMITING Protocol Pantoprazole Sodium 40 mg 02/09/25 09:00 02/10/25 21:00 Pantoprazole Inj 40 Mg Vial IVP 03/11/25 08:59 40 mg BID ROBBIE Administration (Ipratropium Winthrop 2 ea 02/11/25 09:00 42 Mcg (0.06 %) NASAL 03/13/25 08:59 Pullman,Non-Aerosol BID ROBBIE Potassium Phos/Sodium Phos 1 packet 02/05/25 21:00 02/07/25 09:15 Naph,[facility] Mbdb 1 Packet (1.5 Gm) PO 03/07/25 20:59 Not Given On Hold: 02/07/25 10:47 BID ROBBIE Pyridoxine HCl 100 mg 02/07/25 17:15 02/10/25 09:32 Pyridoxine Inj 100 Mg/Ml Vial IM 03/09/25 17:14 100 mg QDAY ROBBIE Administration Plan 44-year-old male with history of hypertension, dyslipidemia, GERD, asthma, and childhood epilepsy admitted for metabolic encephalopathy secondary to thiamine deficiency and malnutrition with multiple electrolyte derangements. Nephrology following for fluid and electrolyte management. # Hypernatremia (improving) Na 144 today, within goal range. Plan: * Patient currently on TPN. Electrolytes have been addressed. * Continue sodium monitoring # Non-anion gap metabolic acidosis Likely secondary to chloride load and NG losses. Improving. Plan: * Added bicarbonate in the TPN * Recheck CO2 daily * monitor acid-base status. # Hypophosphatemia Phosphorus 1.9 despite supplementation, consistent with refeeding and poor intake. Plan: * Continue K-Phos supplementation. * Monitor daily until >3 # Hypomagnesemia Mg 1.7, mild. Plan: * Continue IV magnesium repletion as needed. * Monitor levels daily. # LARISA (resolved) Cr 0.5, baseline, adequate urine output. Plan: * Continue to avoid nephrotoxins and IV contrast. * Maintain adequate hydration. # Thiamine deficiency / Wernicke?s encephalopathy Lab confirmed low thiamine Mental status significantly improved with IV therapy. Plan: * Continue thiamine --high-dose * Continue pyridoxine, B12 * Continue PPN support; monitor for refeeding complications. # Dysphagia / Ileus with NG suction NPO, unable to tolerate PO intake. GI following. ----- Plan discussed with attending physician Dr. Ciara Perez MD PGY-1 Internal Medicine Attending Provider Attestation/Addendum Patient seen and examined with resident physician Dr. Perez. Note reviewed, agree with findings and recommendations. Working diagnosis so far seems to be Wernicke's encephalopathy. On high-dose thiamine, pyridoxine, B12 and is on TPN. Electrolyte seems to be improving. Patient more alert and awake. Able to move his extremities.
--- NOTE | 2025-02-11 09:52 | PC.NURSE ---
Hold everything PO per Dr. Yuen
[2025-02-11] MEDS: Magnesium Sulfate 4 GM Ivpb 4 GM/50 ML BAG IV (10:14)
[2025-02-11] MEDS: POT PHOS 15 mMol in NS 250 ML 15 MMOL/250 ML BAG 83.333 MMOL IV ×2 (10:15→13:55)
--- NOTE | 2025-02-11 10:33 | PC.NURSE ---
Called to pharmacy for flonase
--- NOTE | 2025-02-11 10:37 | XR_ITS ---
Examination: Abdomen AP single view Technique: AP portable supine abdomen, single view Exam date and time: February 11 thousand 25, 1121 hours INDICATIONS: Onset abdominal pain today. FINDINGS: Moderate air and stool throughout the colon No obstruction Orogastric tube tip is in the third portion of the duodenum No free air IMPRESSION: Nonobstructive bowel gas pattern
--- NOTE | 2025-02-11 11:08 | PC.SS ---
Addendum entered by Olesya Woodard 02/11/25 14:17: Rounding Update: Pending sx consult/reccs Original Note: Rounding: Still has NGT, on PPN post EGD. DC plan SNF
[2025-02-11 12:00] VITALS: BP 130/96; PULSE 111; PULSE 132; RESP 30; TEMP 36; O2SAT 100
--- NOTE | 2025-02-11 12:03 | PC.NURSE ---
Per Jeramie Pharmacist can run Thiamine infusion with PPN. this is compatible.
[2025-02-11] MEDS: POTASSIUM ACET IV (13:40)
[2025-02-11] MEDS: POTASSIUM PHOS IV (13:40)
[2025-02-11] MEDS: [UNRECOGNIZED DRUG - OTHER] IV (13:40)
[2025-02-11 13:46] VITALS: BMI 12.0
--- NOTE | 2025-02-11 14:02 | ESPR_ITS ---
<Statement entered by Moo Sawyer MD - 02/11/25 16:45> Patient was seen and evaluated at bedside this morning. No acute overnight events. Patient's thiamine levels did come back and were less than 6. This morning patient was able to work with PT and was able to sit up. Patient was following commands and cooperative. Still only alert and oriented to his name. Overnight nasogastric tube had drainage of 300 cc, but it was noted that they were giving applesauce with p.o. meds at night. Also noted that patient's WBC had up trended, but will monitor as likely reactive in the setting of PPN. Patient did not have a bowel movement as of yet and therefore we will order Gastrografin study and general surgery was consulted. Otherwise no other complaints at this time. I have reviewed the note and agree with the resident's assessment & plan with exceptions as below. I have personally reviewed labs, imaging, home meds/prior records, examined the patient, formulated and discussed management plan with my attending Case disclosed with attending Dr. Ashlie Sawyer PGY2 Disclaimer: Even though this this note was dictated by speech recognition and even though it was carefully revised there may still be minor errors in crop insurance claims adjuster due to voice recognition software. Documentation for date of: 02/11/25 Subjective Subjective Interval history: Overnight, patient's NG tube drained 300 cc. Patient seen examined at bedside. Patient's mentation continues to improve, speaking full sentences although takes few seconds to respond. Alert and oriented only x 1 to name. Denies any bodily pain but reports feels weak. Vitals and labs reviewed. Telemetry showed sinus tachycardia 100-115. WBC uptrending from 11.2-14.3. Hemoglobin stable. Potassium 3.6 and phosphate 1.9 repleted with potassium phosphate 30 mEq. Thiamine resulted less than 6. Magnesium 1.7, repleted with 4 g. AST ALT stable 35/51. Continue thiamine supplementation, plan to de-escalate tomorrow to 250 mg. Continue PPN at this time as NG tube still suctioning. KUB ordered to determine bowel status as patient still has not had a bowel movement despite enemas, showed nonobstructive gas pattern. Plan to start Gastrografin study. General surgery consulted for further recommendations. On KUB, NG tube also noted to be in third part of duodenum, plan to pull back and confirm placement with chest x- ray. Exam Vital Signs Temp Pulse Resp BP Pulse Ox O2 Del Method O2 Flow Rate 96.8 F 132 H 30 H 130/96 H 100 Nasal Cannula 2 02/11/25 12:00 02/11/25 12:00 02/11/25 12:00 02/11/25 12:00 02/11/25 12:00 02/11/25 12:00 02/11/25 12:00 Narrative Exam GENERAL: AOx1 to name only, following commands, continued improvement of encephalopathy, speaking in sentences, poor memory, NG tube in place draining minimal black fluid HEENT: mucous membranes dry, bilateral sclera anicteric, tenderness at L mastoid, +dental caries and front L tooth absent CARDIOVASCULAR: regular rate and rhythm, S1/S2 present, no murmurs appreciated PULMONARY: clear to auscultation bilaterally, no rales/rhonchi/wheezes ABDOMINAL: soft, non-tender, non-distended, no rebound/guarding, bowel sounds present EXTREMITIES: no peripheral edema SKIN: warm and dry, intact, no wounds NEURO: CN II-XII grossly intact, decreased BLE strength Objective Labs 02/11/25 05:20 02/11/25 05:20 Labs: Laboratory Results - last 24 hr 02/04/25 02/10/25 02/11/25 12:38 21:35 05:20 WBC 14.3 H RBC 4.07 L Hgb 12.6 L Hct 37.0 L MCV 91 MCH 31.0 MCHC 34.1 RDW Std Deviation 44.9 H Plt Count 140 Neut % (Auto) 64 Lymph % (Auto) 22 Irion % (Auto) 10 Eos % (Auto) 3 Baso % (Auto) 0 Neut # (Auto) 9.1 H Lymph # (Auto) 3.1 Irion # (Auto) 1.4 H Eos # (Auto) 0.4 Baso # (Auto) 0.0 Immature Gran # (Auto) 0.18 H Absolute Nucleated RBC 0.00 Immature Gran % 1 H Nucleated RBC % 0 Sodium 143 144 Potassium 3.4 3.6 Chloride 111 H 110 H Carbon Dioxide 23.7 23.3 Anion Gap 8 11 BUN 10 8 L Creatinine 0.6 0.5 L Estim Creat Clear Calc 190.6 228.7 eGFR > 60 > 60 BUN/Creatinine Ratio 17 16 Glucose 92 92 Calculated Osmolality 283 285 Calcium 8.1 L 9.0 Corrected Calcium 8.7 9.4 Phosphorus 2.5 1.9 L Magnesium 1.7 Total Bilirubin 0.4 AST 35 H ALT 51 H Alkaline Phosphatase 45 L Total Protein 6.0 Albumin 3.2 L 3.5 Globulin 2.5 Albumin/Globulin Ratio 1.4 Thiamine (Vit B1) Barb <6 L ABG Interpretation ABG results: 02/02/25 02/06/25 02/07/25 16:10 12:13 10:45 ABG pH 7.47 H ABG pCO2 24 L ABG pO2 96 ABG HCO3 17 L ABG O2 Saturation 98 ABG Base Excess -5 L VBG pH 7.55 7.47 VBG pCO2 25 L 21 L VBG pO2 113 H 71 H VBG Base Excess 1 -6 L Quality Measures Quality Measures VTE prophylaxis Assessment & Plan Assessment Current Active Medications: Generic Name Dose Route Start Last Admin Trade Name Freq PRN Reason Stop Dose Admin Acetaminophen 650 mg 02/02/25 16:12 Acetaminophen 325 Mg Tablet PO 03/04/25 15:11 Q6H PRN Fever >99.9 Atorvastatin Calcium 40 mg 02/11/25 09:00 02/11/25 09:52 Atorvastatin Calcium 20 Mg Tablet PO 03/13/25 08:59 Not Given DAILY ROBBIE Citric Acid/Sodium Citrate 30 ml 02/08/25 09:00 02/11/25 09:52 Citric Acid/Sodium Citr 15 Ml Udc (Bicitra) PO 03/10/25 08:59 Not Given BID ROBBIE Dextrose 50 ml 02/02/25 17:28 02/07/25 06:11 Dextrose 50%-Water Inj 50 Ml Syringe IV 03/04/25 17:27 50 ml Q15MIN PRN Administration BG <50 OR BG <70 & pt unresponsive Fluticasone Propionate 2 spray 02/11/25 09:00 02/11/25 10:39 Fluticasone Javad [place] 0.05% 16 Gm Btl NASAL 03/13/25 08:59 Not Given DAILY ROBBIE Glucagon 1 mg 02/02/25 17:28 Glucagon Inj 1 Mg Vial IM Q15MIN PRN BG <70, and no IV access Thiamine HCl 500 mg/ Sodium 105 mls @ 210 mls/hr 02/09/25 16:00 02/11/25 13:33 Chloride IV 03/11/25 15:59 210 mls/hr TID ROBBIE Administration Fat Emulsion Intravenous 500 mls @ 32 mls/hr 02/09/25 18:00 02/10/25 18:00 Intralipid 20% Iv IV 03/11/25 17:59 32 mls/hr [id number] ROBBIE Administration Sodium Chloride 500 mls @ 20 mls/hr 02/10/25 19:10 02/10/25 21:01 Ns IV 02/11/25 19:09 Not Given .Q24H ONE Potassium Phosphate 15 mmol in 250 mls @ 83.333 mls/hr 02/11/25 08:15 02/11/25 13:55 Pot Phos 15 Mmol In Ns 250 Ml IV 02/11/25 14:14 83.333 mls/hr Q3H ROBBIE Administration Multivitamins/Minerals 10 ml/ 2,044 mls @ 120 mls/hr 02/11/25 12:25 02/11/25 13:40 Potassium Acetate 40 meq/ IV 02/12/25 22:28 120 mls/hr Potassium Phosphate 30 mmol/ .Q17H2M ROBBIE Administration Magnesium Sulfate 2 gm/ Amino Acids Insulin Human Lispro 0 unit 02/07/25 00:00 02/11/25 12:22 Insulin Lispro (Admelog) 1 Unit/0.01 Ml Unit SC 03/09/25 00:00 Not Given Q6HR ROBBIE Protocol Montelukast Sodium 10 mg 02/11/25 09:00 02/11/25 09:52 Montelukast Sodium 10 Mg Tablet PO 03/13/25 08:59 Not Given DAILY ROBBIE Ondansetron HCl 4 mg 02/02/25 15:17 02/06/25 18:07 Ondansetron Inj 2 Mg/Ml Inj 2 Ml IVP 03/04/25 15:16 4 mg Q6H PRN Administration NAUSEA OR VOMITING Protocol Pantoprazole Sodium 40 mg 02/09/25 09:00 02/11/25 10:17 Pantoprazole Inj 40 Mg Vial IVP 03/11/25 08:59 40 mg BID ROBBIE Administration (Ipratropium [place] 2 ea 02/11/25 09:00 02/11/25 09:49 42 Mcg (0.06 %) NASAL 03/13/25 08:59 Not Given [place],Non-Aerosol BID [facility] Potassium Phos/Sodium Phos 1 packet 02/05/25 21:00 02/07/25 09:15 Naph,[facility] Mbdb 1 Packet (1.5 Gm) PO 03/07/25 20:59 Not Given On Hold: 02/07/25 10:47 BID [facility] Pyridoxine HCl 100 mg 02/11/25 10:15 02/11/25 10:19 Pyridoxine Inj 100 Mg/Ml Vial IV 03/13/25 10:14 100 mg QDAY [facility] Administration Plan Logan Dye 44M with pmhx significant for HTN, hx of gastric angiodysplasias s/p cautery 12/20/24, GERD, asthma, HLD, 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 ED 02/02 for AMS and generalized weakness admitted for encephalopathy with elevated lactic acid and possible thiamine deficiency. #Acute encephalopathy / #Elevated lactic acid / #Thiamine deficiency #Distended small bowel loops Patient presented with altered mental status, was unable to give a history but was able to deny or admit symptoms for a review of systems. Patient met severe sepsis criteria on admission with tachycardia and leukocytosis in addition to lactic acid of 10.8, which is evidence of end organ damage due to hypoperfusion, however currently no source of infection identified and further differentials as below. Spoke with family who reported younger brother of possible BALTAZAR virus at age 17. Admission VBG showed a pH of 7.55 and a pCO2 of 25. Ammonia mildly elevated 36. Syphillis cocci HIV and hep panel neg. UDS neg, salicylates and acetaminophen neg. UA 1+ protein, 2+ blood, 54 RBC, 24 WBC, LE+. CK wnl 50, beta hydroxy 0.6, 02/06 ABG 7.47/24/96/17. 02/07 VBG 7.47///95 Lactic acid on admission 10.8->6.2->3.8->2.6 but then uptrended 4.1->2.7->5.2->4.5->2.5->3.1 despite fluids, eventually downtrended to 2.5-> 2.0. CT abdomen pelvis was negative for hydronephrosis or ureteral calculi. CXR unremarkable. UCx and BCx, likely due to recent outpatient antibiotic course. 02/04 Echo showed EF estimated 60-65% The right ventricle is normal in size and systolic function. Normal aortic valve. Trace mitral and trace tricuspid regurgitation NO EVIDENCE OF VEGETATIONS. TDS due to patient lying supine and non- cooperative EEG was abnormal with diffuse slowing suggestive of diffuse encephalopathy of metabolic, degenerative or vascular origin. No epileptiform discharges noted. Brain MRI negative for acute hemorrhage, mass effect or midline shift, no acute infarct or microvascular white matter change. 02/06 Abd XR showed multiple air distended small bowel loops in the central abdomen, orogastric tube in stomach but stomach remains air distended 02/07 CTA with cont shows 4 mm lower pole nonobstructing right renal calculus, no hydronephrosis or ureteral calculi. Normal appendix. Mildly fluid distended small bowel loops, consider ileus, enteritis such as Crohn's disease. No findings diagnostic for ischemic small bowel but clinical correlation is advised. 02/07 CT orbit/face shows significant bilateral chronic mastoiditis, negative for acute mastoiditis, negative for otitis media or acquired cholesteatoma Ddx: Source of elevated lactic acid and/or encephalopathy possibly 2/2 thiamine deficiency, bowel microischemia, small intestinal bacterial overgrowth, UTI, cefepime s/e, Patient's mentation continued to worsened until 02/08, suddenly improved able to recognize family members and speak in full sentences, however today, mental status worsening. 02/10 EGD showed few nonbleeding erosions at GE junction, diffuse moderate inflammation in gastric antrum, normal duodenum. Vanc (02/02-02/08), Cefepime (02/02-02/09), metronidazole (02/07-02/09) Thiamine resulted <6 Plan: - Neurology consulted, recs appreciated - GI consulted for possible ileus vs enteritis per CTA AP, recs appreciated: B12 injection x1, pyridoxine IM QD - Continue IV thiamine 500 mg TID (02/09-02/11). Plan to downtitrate tomorrow to 250 mg TID for 5 days, then 100 mg QD - F/u prolactin, KOJO, dsDNA, MUSC antibodies, aceylcholine receptor antibodies - PT ordered, recommends SNF - NG tube continues to drain, plan to discontinue once patient has bowel movement and secretions decrease - PPN at 120 cc/hr for nutrition, 3L/24h (02/09- - General surgery consulted, recs appreciated - Gastrograffin with KUB ordered - Plan to pull NG tube back as NG KUB showed NG tube in third portion of duodenum #Electrolyte abnormalities #Hypernatremia, improved #Hypokalemia #Hyperchloremia #Hypophosphatemia #Hypomagnesemia #Hypocalcemia, resolved Patient presented with Na of 146, with gradual increase everyday despite D5W. Likely 2/2 poor PO intake 2/2 AMS. Cannot exclude neurological cause given patient is becoming more encephalopathic everyday. Ddx includes small bowel microischemia, RTA, HAGMA with respiratory compensation. Delta Delta calculated -8 with 02/07 labs signifying one of the three following: Mixed HAGMA and NAGMA. Mixed HAGMA with chronic respiratory alkalosis plys hyperchloremic acidosis. HAGMA with preexisting low anion gap state (hypoalbuminemia, paraproteinemia, etc). 02/08 Ulytes sodium 145 protein 74 and potassium 40 and chloride 136. And repeat UA 1+ ketones no indication of UTI. Likely severely dehydrated due to poor p.o. intake for months. Free water decifit 6.2L. Patient has received cumulative 14L of fluids from 02/08 since admission with recorded output 1575 mL with Guo inserted on 02/06 however some of the fluids were NS. Plan: - Nephrology consulted, recs appreciated: - bicitra BID and oral free water flushes once can tolerate oral as currently NG tube is in place, - Continue D5W 120 cc/hr through PPN with goal of decreasing sodium 10-12 mEq over 24h, decrease rate or stop accordingly if Na exceeds goal - Continue desmopressin 2 mcg QD iso sudden increase in urine output on 02/08 - CTM sodium - Fluids as above #Transaminitis, improving #Coagulopathy, improving #Metabolic dysfunction-associated steatotic liver disease #Non-obstructing gallstones On admission, PT elevated 14.6 with INR 1.4, and AST ALT 80/217. AST/ALT initially peaked and downtrended. Not on hepatotoxic home medication and denies alcohol use. Denies RUQ pain. Abdominal ultrasound negative for cholelithiasis or cholecystitis, multiple gallstones, liver 14.5 cm fatty infiltration no focal liver lesions Ddx includes acidotic state with elevated lactic acid impairing coagulation with subsequent liver and tissue damage. Plan: - CTM LFTs - Avoid hepatotoxic medications #GERD Per history taken from the patient's mother Plan: - IV pantoprazole 40 mg BID #Hypercholesterolemia Per history taken from patient's mother. Patient takes atorvastatin 40 mg p.o. daily at home Plan: - Hold in the presence of transaminitis #Asthma Per patient history gathered from patient's mother. Patient montelukast 10 mg p.o. daily Plan: - No indication for treatment at this time as patient is asymptomatic #Hyperglycemia (Resolved) Fingerstick glucose 237 on arrival. Per patient's mother, he does not have a history of diabetes. 02/03/25 A1c 5.9 Plan: - SSI in place #Hyperthyroidism (Resolved) Thyroxine 13.6 repeat thyroxine 1.18. Consider acute phase thyrotoxicosis reaction over underlying thyroid condition Hospital management: Lines: PIV Diet: NPO Bowel: None GI prophylaxis: IV pantoprazole 40 mg BID DVT prophylaxis: SCDs Disposition: tele, encephalopathy worsening, pending GI and nephro consult, NG tube still in place CODE STATUS: FULL CODE Plan of care discussed with attending Dr. Dailey, and PGY-2 Dr. Scott. Mercedes Yuen, DO PGY-1 Internal Medicine Attending Provider Attestation/Addendum I have examined the patient, reviewed labs and imaging findings, discussed the case with the resident(s), and reviewed entered orders. I agree with the plan of care as outlined in this note, with these additional summaries/recommendations: Patient seen at bedside. No acute overnight events. He continues to show improvement in his mental status but does have intermittent episodes of confusion where he does not follow commands. He was placed on bilateral wrist restraints again last night and we will attempt to remove today. He remains encephalopathic but is improving. Patient appears to be responding well to thiamine which does support the diagnosis of thiamine deficiency/Wernicke's encephalopathy. Thiamine level returned less than 6 further supporting diagnosis of wernickes. Continue high dose IV thiamin. Patient was started on PPN and tolerating well. Gastroenterology and dietary following. Patient has a history of dysphagia and is s/p EGD which revealed nonbleeding erosions at GE junction and gastritis. NG tube in place for previous suspected SBO/ileus. Patient has not had a bowel movement throughout hospitalization. We will order small bowel series to evaluate further and consult general surgery. In-house nephrology following for acid-base disturbances which has now resolved today. Patient and family updated on the plan and in agreement. All questions answered to satisfaction. Please see residents note for additional details and management. Dr. Ashlie MD
--- NOTE | 2025-02-11 14:20 | XR_ITS ---
Examination: AP chest single view Technique one AP portable upright chest single view Date and time: February 11 thousand 25, 1438 hours INDICATIONS: Reposition orogastric tube. FINDINGS: Orogastric tube in stomach Normal heart size Lungs are clear IMPRESSION: Advance the orogastric tube 4 cm
--- NOTE | 2025-02-11 14:50 | XR_ITS ---
Examination: Small bowel series AP supine abdomen 3 views Date and time: February 11, 2025, 1629 hrs. Indications: Abdominal distention this week Technique And Findings: Patient received 120 cc Gastrografin through the orogastric tube Immediate AP abdomen, 30 minute AP portable supine abdomen, 1 portable supine abdomen films obtained Contrast resides primarily in the stomach Impression: Preliminary films, recommend follow-up abdomen films 8:00 PM, 10:00 PM, 1:00 AM, 4:00 AM
--- NOTE | 2025-02-11 15:49 | XR_ITS ---
Examination: AP chest single view Technique one AP portable upright chest single view Date and time: February 11 thousand 25, 1539 hours, comparison February 11, 2025 INDICATIONS: Orogastric tube reposition FINDINGS: Orogastric tube tip distal stomach satisfactory position Normal heart size Lungs are clear IMPRESSION: Orogastric tube satisfactory position
--- NOTE | 2025-02-11 15:49 | ESPR_ITS ---
Documentation for date of: 02/11/25 Subjective Subjective Interval history: Patient was seen in telemetry today at the bedside. Patient's mental status has significantly improved, still not back to baseline per mother at bedside. He continues to answer questions very slowly. He is oriented to self only. Continues to identify his aunt and mother but unable to state where he is. No seizures or myoclonic jerks reported. Remains restless overnight per nursing, has bilateral wrist restraints on. Continues to remain tachycardic and on telemetry ranging 110?115. NG tube remains in place and still not had a bowel movement. Thiamine resulted less than 6. Continuing IV thiamine daily. Exam Vital Signs Temp Pulse Resp BP Pulse Ox O2 Del Method O2 Flow Rate 96.8 F 132 H 30 H 130/96 H 100 Nasal Cannula 2 02/11/25 12:00 02/11/25 12:00 02/11/25 12:00 02/11/25 12:00 02/11/25 12:00 02/11/25 12:00 02/11/25 12:00 Narrative Exam GENERAL APPEARANCE: Middle age male, Well-developed, obese built male in no acute distress. HEENT: Normocephalic, atraumatic, extraocular movements intact. Pupils: Equal reacting to light NECK: Supple, no JVD or bruits. CARDIOVASULAR: Heart: S1, S2 heard, regular without S3-S4 or murmur no rubs or gallops. LUNGS/CHEST: Clear to auscultation bilaterally. No rails, rhonchi, or wheezing. Normal inspection. ABDOMEN: Soft, nontender, distended. No pulsatile masses. No rebound, rigidity, or guarding. Normal inspection and palpation. EXTREMITIES: Normal inspection and palpation. No edema, clubbing or cyanosis. SKIN: Warm and dry without rashes. Normal inspection. MUSCULOSKELETAL: No cervical, thoracic, lumbar or midline bony tenderness. Normal inspection. NEURO: Alert, awake and oriented x1. Cranial nerves: II through XII grossly intact. Speech and language: Normal with no dysarthria or dysphasia. Slow responses. Motor system: Tone and bulk: Normal: Strength: 5 out of 5 in all 4 extremities; No pronator drift noted. Deep tendon reflexes: 2+ bilaterally symmetrical. Plantar reflex: Downgoing bilaterally. Sensory system: Intact to all modalities of sensation bilaterally. Coordination: Intact to [id number] and [id number] test bilaterally. No ataxia, no dysmetria, or dysdiadochokinesia noted. No intention tremors noted. Gait: Not tested. No signs of meningeal irritation noted. PSYCHIATRIC: Normal mood and affect. Objective Labs 02/13/25 04:35 02/13/25 04:35 Labs: Laboratory Results - last 24 hr 02/04/25 02/10/25 02/11/25 12:38 21:35 05:20 WBC 14.3 H RBC 4.07 L Hgb 12.6 L Hct 37.0 L MCV 91 MCH 31.0 MCHC 34.1 RDW Std Deviation 44.9 H Plt Count 140 Neut % (Auto) 64 Lymph % (Auto) 22 [place] % (Auto) 10 Eos % (Auto) 3 Baso % (Auto) 0 Neut # (Auto) 9.1 H Lymph # (Auto) 3.1 [place] # (Auto) 1.4 H Eos # (Auto) 0.4 Baso # (Auto) 0.0 Immature Gran # (Auto) 0.18 H Absolute Nucleated RBC 0.00 Immature Gran % 1 H Nucleated RBC % 0 Sodium 143 144 Potassium 3.4 3.6 Chloride 111 H 110 H Carbon Dioxide 23.7 23.3 Anion Gap 8 11 BUN 10 8 L Creatinine 0.6 0.5 L Estim Creat Clear Calc 190.6 228.7 eGFR > 60 > 60 BUN/Creatinine Ratio 17 16 Glucose 92 92 Calculated Osmolality 283 285 Calcium 8.1 L 9.0 Corrected Calcium 8.7 9.4 Phosphorus 2.5 1.9 L Magnesium 1.7 Total Bilirubin 0.4 AST 35 H ALT 51 H Alkaline Phosphatase 45 L Total Protein 6.0 Albumin 3.2 L 3.5 Globulin 2.5 Albumin/Globulin Ratio 1.4 Thiamine (Vit B1) Barb <6 L ABG Interpretation ABG results: 02/02/25 02/06/25 02/07/25 16:10 12:13 10:45 ABG pH 7.47 H ABG pCO2 24 L ABG pO2 96 ABG HCO3 17 L ABG O2 Saturation 98 ABG Base Excess -5 L VBG pH 7.55 7.47 VBG pCO2 25 L 21 L VBG pO2 113 H 71 H VBG Base Excess 1 -6 L Quality Measures Quality Measures VTE prophylaxis Assessment & Plan Assessment Current Active Medications: Generic Name Dose Route Start Last Admin Trade Name Freq PRN Reason Stop Dose Admin Acetaminophen 650 mg 02/02/25 16:12 Acetaminophen 325 Mg Tablet PO 03/04/25 15:11 Q6H PRN Fever >99.9 Atorvastatin Calcium 40 mg 02/11/25 09:00 02/11/25 09:52 Atorvastatin Calcium 20 Mg Tablet PO 03/13/25 08:59 Not Given DAILY ROBBIE Citric Acid/Sodium Citrate 30 ml 02/08/25 09:00 02/11/25 09:52 Citric Acid/Sodium Citr 15 Ml Udc (Bicitra) PO 03/10/25 08:59 Not Given BID ROBBIE Dextrose 50 ml 02/02/25 17:28 02/07/25 06:11 Dextrose 50%-Water Inj 50 Ml Syringe IV 03/04/25 17:27 50 ml Q15MIN PRN Administration BG <50 OR BG <70 & pt unresponsive Fluticasone Propionate 2 spray 02/11/25 09:00 02/11/25 10:39 Fluticasone Javad [place] 0.05% 16 Gm Btl NASAL 03/13/25 08:59 Not Given DAILY ROBBIE Glucagon 1 mg 02/02/25 17:28 Glucagon Inj 1 Mg Vial IM Q15MIN PRN BG <70, and no IV access Thiamine HCl 500 mg/ Sodium 105 mls @ 210 mls/hr 02/09/25 16:00 02/11/25 13:33 Chloride IV 03/11/25 15:59 210 mls/hr TID ROBBIE Administration Fat Emulsion Intravenous 500 mls @ 32 mls/hr 02/09/25 18:00 02/10/25 18:00 Intralipid 20% Iv IV 03/11/25 17:59 32 mls/hr [id number] ROBBIE Administration Sodium Chloride 500 mls @ 20 mls/hr 02/10/25 19:10 02/10/25 21:01 Ns IV 02/11/25 19:09 Not Given .Q24H ONE Multivitamins/Minerals 10 ml/ 2,044 mls @ 120 mls/hr 02/11/25 12:25 02/11/25 13:40 Potassium Acetate 40 meq/ IV 02/12/25 22:28 120 mls/hr Potassium Phosphate 30 mmol/ .Q17H2M ROBBIE Administration Magnesium Sulfate 2 gm/ Amino Acids Insulin Human Lispro 0 unit 02/07/25 00:00 02/11/25 12:22 Insulin Lispro (Admelog) 1 Unit/0.01 Ml Unit SC 03/09/25 00:00 Not Given Q6HR ROBBIE Protocol Montelukast Sodium 10 mg 02/11/25 09:00 02/11/25 09:52 Montelukast Sodium 10 Mg Tablet PO 03/13/25 08:59 Not Given DAILY ROBBIE Ondansetron HCl 4 mg 02/02/25 15:17 02/06/25 18:07 Ondansetron Inj 2 Mg/Ml Inj 2 Ml IVP 03/04/25 15:16 4 mg Q6H PRN Administration NAUSEA OR VOMITING Protocol Pantoprazole Sodium 40 mg 02/09/25 09:00 02/11/25 10:17 Pantoprazole Inj 40 Mg Vial IVP 03/11/25 08:59 40 mg BID ROBBIE Administration (Ipratropium [place] 2 ea 02/11/25 09:00 02/11/25 09:49 42 Mcg (0.06 %) NASAL 03/13/25 08:59 Not Given [place],Non-Aerosol BID ROBBIE Potassium Phos/Sodium Phos 1 packet 02/05/25 21:00 02/07/25 09:15 Naph,[facility] Mbdb 1 Packet (1.5 Gm) PO 03/07/25 20:59 Not Given On Hold: 02/07/25 10:47 BID ROBBIE Pyridoxine HCl 100 mg 02/11/25 10:15 02/11/25 10:19 Pyridoxine Inj 100 Mg/Ml Vial IV 03/13/25 10:14 100 mg QDAY ROBBIE Administration Plan Summary: Logan Dye is a 44-year-old male with a past medical history of hypertension, GERD, allergies, asthma, hypercholesterolemia, 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 He was admitted for severe sepsis. #Acute encephalopathy-improving #Thiamine deficiency Significant improvement after oral supplementation. Thiamine levels low at <6. Patient presented with altered mental status, poor historian. anion gap of 25 and appeared to be compensating in a respiratory manner appropriate for metabolic acidosis, as VBG showed a pH of 7.55 and a pCO2 of 25 Patient denied dysuria, urine positive for 1+ protein, 2+ blood, 54 RBC, 24 white blood cells, leukocyte esterase positive CT abdomen pelvis was negative for hydronephrosis or ureteral calculi Urine and blood cultures negative, likely due to recent outpatient antibiotic course, Cocci serology negative EEG was nondiagnostic. No evidence of seizure-like activity. Brain MRI Negative for acute hemorrhage or acute infarct. Echo on 02/04 showed EF 60-65%, no evidence of vegetations -MG workup including acetylcholine receptors and [facility] antibodies are pending -Thiamine IV 100mg BID - Pyridoxine 100 mg daily -PT -PPN at 120 cc/hr for nutrition #Hypernatremia #Transaminitis #Elevated PT #Hyperammonemia (Resolved) #Elevated INR (Resolved) #Hyperthyroidism (Resolved) #Hyperglycemia (Resolved) #GERD #Hypercholesterolemia #Asthma #Acute anion gap metabolic acidosis (Resolved) #Non obstructing gallstones #distended small bowel loops Primary care team to manage above conditions and ongoing care needs. The patient's management plan was discussed with my attending physician Dr. Broderick. Amanda Turner, PGY-2 Attending Provider Attestation/Addendum I personally have seen and examined the patient at the bedside and I agree with resident's findings, assessment and plan of care. Patient presenting symptoms are most consistent with metabolic encephalopathy, reassurance given to the patient and family regarding the negative workup other than low thiamine. Continue with thiamine supplementation. Encourage him to participate with physical therapy as his swallowing improves. Will hold off on the lumbar puncture at this point as his mental status has improved and I am not sure if he is close to baseline.
[2025-02-11 16:00] VITALS: BP 123/83; PULSE 107; PULSE 111; RESP 15; TEMP 35.9; O2SAT 99
--- NOTE | 2025-02-11 17:50 | PD.SURCONS ---
HPI Consult details History of present illness: 44M with HTN, HLD, asthma, GERD, childhood epilepsy and gastric angiodysplasia who was admitted 02/02 for AMS and weakness. I was consulted today due to concern for ileus/SBO; pt has apparently not had a BM since admission and has an NG in place which drained 600cc total yesterday but has not had any drainage so far today despite flushing well. He is currently beginning a gastrografin challenge Meds Home Medications and Allergies Home Medications ?Medication ?Instructions ?Recorded ?Confirmed ?Type atorvastatin 20 mg tablet 40 mg PO DAILY 12/19/24 02/03/25 History fluticasone propionate 50 2 spray intranasal DAILY 12/19/24 02/03/25 History mcg/actuation nasal spray,suspension ipratropium bromide 42 mcg (0.06 2 spray intranasal BID 12/19/24 02/03/25 History %) nasal spray montelukast 10 mg tablet 10 mg PO DAILY 12/19/24 02/03/25 History omeprazole 40 mg capsule,delayed 40 mg PO DAILY 12/19/24 02/03/25 History release Allergies Allergy/AdvReac Type Severity Reaction Status Date / Time No Known Allergies Allergy Verified 02/02/25 08:14 Exam Vital Signs Temp Pulse Resp BP Pulse Ox O2 Del Method O2 Flow Rate 96.6 F L 107 H 15 123/83 99 Nasal Cannula 2 02/11/25 16:00 02/11/25 16:00 02/11/25 16:00 02/11/25 16:00 02/11/25 16:00 02/11/25 16:00 02/11/25 16:00 Constitutional Constitutional: no acute distress Routine Respiratory Exam Respiratory: Present no resp distress Results Results: Laboratory Laboratory results: results reviewed Results: Imaging Abdominal x-ray: report reviewed and image reviewed Assessment & Plan Plan 44M with HTN, HLD, asthma, GERD, childhood epilepsy and gastric angiodysplasia who was admitted 02/02 for AMS and weakness, with an NG in place due to concern for ileus. AXR from this morning shows a nonobstructive bowel gas pattern; will follow up results of small bowel series but expect to see contrast in colon at which point the NG can be removed and diet initiated
--- NOTE | 2025-02-11 19:15 | ESPR_ITS ---
Documentation for date of: 02/11/25 Subjective Subjective Interval history: NGT is clamped at the moment and small bowel follow-through in progress Exam Vital Signs Temp Pulse Resp BP Pulse Ox O2 Del Method O2 Flow Rate 96.6 F L 107 H 15 123/83 99 Nasal Cannula 2 02/11/25 16:00 02/11/25 16:00 02/11/25 16:00 02/11/25 16:00 02/11/25 16:00 02/11/25 16:00 02/11/25 16:00 Objective Labs 02/12/25 04:41 02/12/25 04:41 Labs: Laboratory Results - last 24 hr 02/04/25 02/10/25 02/11/25 12:38 21:35 05:20 WBC 14.3 H RBC 4.07 L Hgb 12.6 L Hct 37.0 L MCV 91 MCH 31.0 MCHC 34.1 RDW Std Deviation 44.9 H Plt Count 140 Neut % (Auto) 64 Lymph % (Auto) 22 [place] % (Auto) 10 Eos % (Auto) 3 Baso % (Auto) 0 Neut # (Auto) 9.1 H Lymph # (Auto) 3.1 [place] # (Auto) 1.4 H Eos # (Auto) 0.4 Baso # (Auto) 0.0 Immature Gran # (Auto) 0.18 H Absolute Nucleated RBC 0.00 Immature Gran % 1 H Nucleated RBC % 0 Sodium 143 144 Potassium 3.4 3.6 Chloride 111 H 110 H Carbon Dioxide 23.7 23.3 Anion Gap 8 11 BUN 10 8 L Creatinine 0.6 0.5 L Estim Creat Clear Calc 190.6 228.7 eGFR > 60 > 60 BUN/Creatinine Ratio 17 16 Glucose 92 92 Calculated Osmolality 283 285 Calcium 8.1 L 9.0 Corrected Calcium 8.7 9.4 Phosphorus 2.5 1.9 L Magnesium 1.7 Total Bilirubin 0.4 AST 35 H ALT 51 H Alkaline Phosphatase 45 L Total Protein 6.0 Albumin 3.2 L 3.5 Globulin 2.5 Albumin/Globulin Ratio 1.4 Thiamine (Vit B1) Barb <6 L Impressions Impression: Small bowel ileus/obstruction Gastrografin SBFT in progress Will follow ABG Interpretation ABG results: 02/02/25 02/06/25 02/07/25 16:10 12:13 10:45 ABG pH 7.47 H ABG pCO2 24 L ABG pO2 96 ABG HCO3 17 L ABG O2 Saturation 98 ABG Base Excess -5 L VBG pH 7.55 7.47 VBG pCO2 25 L 21 L VBG pO2 113 H 71 H VBG Base Excess 1 -6 L Assessment & Plan Time Spent With Patient Time: Total time spent is greater than 50% in coordination of care (as documented) at patient's floor/unit and/or counseling patient:
[2025-02-11 20:00] VITALS: BP 118/90; PULSE 104; RESP 20; TEMP 36.3; O2SAT 97
--- NOTE | 2025-02-11 21:45 | XR_ITS ---
Examination: Abdomen AP single view Technique: AP portable supine abdomen, single view Exam date and time: February 11, 2025, 0948 hours INDICATIONS: Abdominal distention this week, 5-hour delayed film post small bowel series FINDINGS: Contrast predominantly in the colon IMPRESSION: Negative for small bowel obstruction
[2025-02-12] VITALS (7 sets, daily range): BP systolic 123–145; BP diastolic 88–98; PULSE 103–124; RESP 10–23; TEMP 35.9–36.2; O2SAT 91–99; BMI 42.8; BMI 12.0
--- NOTE | 2025-02-12 01:45 | XR_ITS ---
Examination: Abdomen AP single view Technique: AP portable supine abdomen, single view Exam date and time: February 12, 2025, 0141 hours INDICATIONS: Abdominal distention this week, 9-hour delayed film for small bowel series yesterday. FINDINGS: Contrast throughout the colon IMPRESSION: Negative for small bowel obstruction
[2025-02-12] MEDS: THIAMINE INJ 500 MG in SODIUM CHLORIDE 0.9% 100 ML 210 MG IV (05:18)
[2025-02-12 05:32] LABS: Basophils # (Auto) 0.1 Thou/mm3 (0.0-0.2); Basophils % (Auto) 1 % (0-2.5); Eosinophils # (Auto) 0.3 Thou/mm3 (0.0-0.5); Eosinophils % (Auto) 2 % (0-10); Hematocrit 35.8 % (41.0-53.0); Hemoglobin 12.0 g/dL (13.5-16.0); Immature Granulocytes Auto 0.20 Thou/mm3 (0.00-0.00); Lymphocytes # (Auto) 4.0 Thou/mm3 (1.0-4.8); Lymphocytes % (Auto) 29 % (10-50); Mean Corpuscular HGB Conc 33.5 g/dl (31.0-37.0); Mean Corpuscular Hemoglobin 30.8 pg (25.0-35.0); Mean Corpuscular Volume 92 fL (80-100); Monocytes # (Auto) 1.2 Thou/mm3 (0.0-0.8); Monocytes % (Auto) 8 % (0-12); Neutrophils # (Auto) 8.1 Thou/mm3 (1.8-7.7); Neutrophils % (Auto) 58 % (37-80); Nucleated Red Blood Cell # 0.00 Thou/mm3 (0.00-0.00); Nucleated Red Blood Cell % 0 /100 WBC (0); Platelet Count 178 Thou/mm3 (140-440); RDW Standard Deviation 46.4 fL (35.1-43.9); Red Blood Count 3.90 Miln/mm3 (4.50-5.90); White Blood Count 13.8 Thou/mm3 (3.8-10.6)
--- NOTE | 2025-02-12 05:45 | XR_ITS ---
Examination: Abdomen AP single view Technique: AP portable supine abdomen, single view Exam date and time: February 12, 2025, 0539 hours INDICATIONS: Abdominal distention this week, 13-hour delayed film for small bowel series yesterday FINDINGS: Contrast primarily in the colon IMPRESSION: Negative for small bowel obstruction
[2025-02-12] MEDS: MULTIVITAMIN IV ×2 (05:48→23:07)
[2025-02-12] MEDS: POTASSIUM PHOS IV ×2 (05:48→23:07)
[2025-02-12] MEDS: POTASSIUM ACET IV (05:48)
[2025-02-12] MEDS: [UNRECOGNIZED DRUG - OTHER] IV (05:48)
[2025-02-12 06:03] LABS: Alanine Aminotransferase 73 U/L (10-49); Albumin, Serum 3.1 gm/dL (3.5-5.0); Albumin/Globulin Ratio 1.2 (1.2-2.2); Alkaline Phosphatase 43 U/L (46-116); Anion Gap 9 (7-16); Aspartate Amino Transferase 73 U/L (0-34); BUN/Creatinine Ratio 17 Ratio (12-20); Bilirubin,Total 0.4 mg/dL (0.3-1.2); Blood Urea Nitrogen 10 mg/dL (9-23); Calcium 8.3 mg/dL (8.3-10.6); Calcium (Corrected) 9.0 mg/dL (8.5-10.1); Carbon Dioxide 23.8 mMol/L (20.0-31.0); Chloride 113 mMol/L (98-107); Creatinine (Component) 0.6 mg/dL (0.6-1.3); Estimated Creatinine Clearance 190.6 mL/min (>60); Globulin 2.6 gm/dL (2.3-3.5); Glucose 103 mg/dL (74-106); Magnesium 2.0 mg/dL (1.6-2.6); Osmolality,Calculated 289 (275-295); Phosphorous 2.5 mg/dL (2.4-5.1); Potassium 4.1 mMol/L (3.4-5.1); Sodium 146 mMol/L (136-145); Total Protein 5.7 gm/dL (5.7-8.2); eGFR > 60 See Note
--- NOTE | 2025-02-12 07:40 | ESPR_ITS ---
Documentation for date of: 02/12/25 Subjective Subjective Interval history: Mr Dye is a 44-year-old gentleman with a past medical history of hypertension, dyslipidemia, reflux, asthma, epilepsy (took phenobarbital 10 years ago), allergies was brought to the emergency department with altered mental status. Patient was altered in the ER and unable to give any history. As per the chart the patient was tachycardic tand was found to have a lactic acid of 10.8 with a white count of 24. Patient was admitted with a diagnosis of sepsis of unknown source. In the last 3 months he has been declining significantly. Last admission to the hospital was December 2024 for dysphagia and had a dilation by Dr. Campos. Patient continues to have symptoms of dysphagia. During this admission he was noted to have 40 pound weight loss and significant altered mental status. Patient was seen by neurology-CT brain negative. UA did not show any activity. LP was supposed to be done yesterday but unable to. Patient was seen by GI. could not get significant history as patient seems to be very sleepy. He has extensive workup done during this admission-CT abdomen showed nonobstructing renal calculi with no hydronephrosis. Chest x-ray negative. Abdominal ultrasound showed gallstones with no cholecystitis. Also has fatty liver. Echocardiogram showed ejection fraction 60%. EEG no seizure activity. MRI brain negative. CTA abdomen showed no ischemia. Lumbar puncture attempted but unsuccessful. Patient going for repeat LP possibly today with IR. 02/07/2025 patient currently seen in telemetry. Labs showed blood pressure 121/89, heart rate 116. Sleepy. White count 7.3, hemoglobin 11.8, platelets 154. Coags negative. ABG yesterday showed pH 7.47, pCO2 74, HCO3 17. carboxyhemoglobin 4.4. Sodium 153, potassium 3.4, chloride 125, bicarbonate 15.6, creatinine 0.6, lactic acid 4.5, calcium 7.7, phosphorus 1.7, magnesium 1.5, LFTs elevated, albumin 2.8 urinalysis and urine lites pending is nonreactive cocci negative hep panel negative HIV negative 02/08/2025 patient currently seen in telemetry today still with NG tube suction. More alert and awake and able to converse with me today. Started p.o. Bicitra. Urinalysis showed pH of 5.0, specific gravity 1032. Urine lytes positive for anion gap. 02/09/2025: Patient currently seen in telemetry. Mentation fluctuates; today more lethargic and minimally responsive compared to yesterday when he was conversant. Does not follow commands consistently. NG tube remains in place on low intermittent suction. No bowel movement reported overnight. Guo in place with adequate urine output. Blood pressure 93/71, heart rate 90. Sodium 148, chloride 119, bicarbonate 20, creatinine 0.7, phosphorus 2.0, magnesium 1.9, calcium 8.9. On D5W infusion and desmopressin. K-Phos started for hypophosphatemia. Lactic acid remains downtrended. Continues on cefepime and Flagyl. 02/11/2025: Patient seen in telemetry. Mentation improving; awake, talkative, follows commands. Moves all extremities. Denies nausea, vomiting, or pain. NG tube remains in place with ongoing dark output. Urine output stable. On PPN and D5W 120 mL/hr with desmopressin 2 mcg daily. Continues on high-dose thiamine 500 mg IV BID after confirmed deficiency. No fevers. Mild tachycardia persists. Labs today: WBC 14.3, Hgb 12.6, Na 144, K 3.6, Cl 110, Ca 9.4, Phos 1.9, Mg 1.7, Cr 0.5. 02/12/2025: Patient seen in telemetry. Mentation remains improved. Patient is awake, talkative, and responsive. Moves all extremities spontaneously. Denies nausea, vomiting, or pain. No bowel movement yet. NG tube remains in place though no longer draining dark output. Urine output stable and adequate. Continues on PPN and D5W. Desmopressin dose fell out overnight ? will resume today. Thiamine now transitioned to 250 mg IV BID per protocol. Afebrile, hemodynamically stable aside from mild tachycardia. Latest vitals: BP 127/90, HR 105. Labs: WBC 13.8, Hgb 12.0, Plt 178, Na 146, K 4.1, Cl 113, Cr 0.6, Ca 9.0. Exam Vital Signs Temp Pulse Resp BP Pulse Ox O2 Del Method O2 Flow Rate 97.0 F 105 H 17 127/90 H 97 Room Air 2 02/12/25 04:00 02/12/25 04:00 02/12/25 04:00 02/12/25 04:00 02/12/25 04:00 02/12/25 04:00 02/11/25 20:00 Narrative Exam GENERAL: Alert, conversant, no acute distress; NG tube in place draining dark fluid. HEENT: MMM, PERRLA, no scleral icterus. NECK: Supple, no JVD. CV: Regular rate and rhythm, no murmurs. RESP: Clear to auscultation bilaterally. ABDOMEN: Soft, mildly distended, non-tender, bowel sounds present. EXTREMITIES: No edema; moves all extremities. SKIN: Warm, dry, intact. NEURO: Oriented to name, follows commands, speech clear; strength improved in all extremities Objective Labs 02/12/25 04:41 02/12/25 04:41 Labs: Laboratory Results - last 24 hr 02/12/25 04:41 WBC 13.8 H RBC 3.90 L Hgb 12.0 L Hct 35.8 L MCV 92 MCH 30.8 MCHC 33.5 RDW Std Deviation 46.4 H Plt Count 178 D Neut % (Auto) 58 Lymph % (Auto) 29 [place] % (Auto) 8 Eos % (Auto) 2 Baso % (Auto) 1 Neut # (Auto) 8.1 H Lymph # (Auto) 4.0 [place] # (Auto) 1.2 H Eos # (Auto) 0.3 Baso # (Auto) 0.1 Immature Gran # (Auto) 0.20 H Absolute Nucleated RBC 0.00 Immature Gran % 1 H Nucleated RBC % 0 Sodium 146 H Potassium 4.1 D Chloride 113 H Carbon Dioxide 23.8 Anion Gap 9 BUN 10 Creatinine 0.6 Estim Creat Clear Calc 190.6 eGFR > 60 BUN/Creatinine Ratio 17 Glucose 103 Calculated Osmolality 289 Calcium 8.3 Corrected Calcium 9.0 Phosphorus 2.5 Magnesium 2.0 Total Bilirubin 0.4 AST 73 H ALT 73 H Alkaline Phosphatase 43 L Total Protein 5.7 Albumin 3.1 L Globulin 2.6 Albumin/Globulin Ratio 1.2 ABG Interpretation ABG results: 02/02/25 02/06/25 02/07/25 16:10 12:13 10:45 ABG pH 7.47 H ABG pCO2 24 L ABG pO2 96 ABG HCO3 17 L ABG O2 Saturation 98 ABG Base Excess -5 L VBG pH 7.55 7.47 VBG pCO2 25 L 21 L VBG pO2 113 H 71 H VBG Base Excess 1 -6 L Quality Measures Quality Measures VTE prophylaxis Assessment & Plan Assessment Current Active Medications: Generic Name Dose Route Start Last Admin Trade Name Freq PRN Reason Stop Dose Admin Acetaminophen 650 mg 02/02/25 16:12 Acetaminophen 325 Mg Tablet PO 03/04/25 15:11 Q6H PRN Fever >99.9 Atorvastatin Calcium 40 mg 02/11/25 09:00 02/11/25 09:52 Atorvastatin Calcium 20 Mg Tablet PO 03/13/25 08:59 Not Given DAILY ROBBIE Citric Acid/Sodium Citrate 30 ml 02/08/25 09:00 02/11/25 20:38 Citric Acid/Sodium Citr 15 Ml Udc (Bicitra) PO 03/10/25 08:59 Not Given BID ROBBIE Dextrose 50 ml 02/02/25 17:28 02/07/25 06:11 Dextrose 50%-Water Inj 50 Ml Syringe IV 03/04/25 17:27 50 ml Q15MIN PRN Administration BG <50 OR BG <70 & pt unresponsive Fluticasone Propionate 2 spray 02/11/25 09:00 02/11/25 10:39 Fluticasone Javad [place] 0.05% 16 Gm Btl NASAL 03/13/25 08:59 Not Given DAILY ROBBIE Glucagon 1 mg 02/02/25 17:28 Glucagon Inj 1 Mg Vial IM Q15MIN PRN BG <70, and no IV access Thiamine HCl 500 mg/ Sodium 105 mls @ 210 mls/hr 02/09/25 16:00 02/12/25 05:18 Chloride IV 03/11/25 15:59 210 mls/hr TID ROBBIE Administration Fat Emulsion Intravenous 500 mls @ 32 mls/hr 02/09/25 18:00 02/10/25 18:00 Intralipid 20% Iv IV 03/11/25 17:59 32 mls/hr [id number] ROBBIE Administration Multivitamins/Minerals 10 ml/ 2,044 mls @ 120 mls/hr 02/11/25 12:25 02/12/25 05:48 Potassium Acetate 40 meq/ IV 02/12/25 22:28 120 mls/hr Potassium Phosphate 30 mmol/ .Q17H2M ROBBIE Administration Magnesium Sulfate 2 gm/ Amino Acids Insulin Human Lispro 0 unit 02/07/25 00:00 02/12/25 05:34 Insulin Lispro (Admelog) 1 Unit/0.01 Ml Unit SC 03/09/25 00:00 Not Given Q6HR ROBBIE Protocol Montelukast Sodium 10 mg 02/11/25 09:00 02/11/25 09:52 Montelukast Sodium 10 Mg Tablet PO 03/13/25 08:59 Not Given DAILY ROBBIE Ondansetron HCl 4 mg 02/02/25 15:17 02/06/25 18:07 Ondansetron Inj 2 Mg/Ml Inj 2 Ml IVP 03/04/25 15:16 4 mg Q6H PRN Administration NAUSEA OR VOMITING Protocol Pantoprazole Sodium 40 mg 02/09/25 09:00 02/11/25 21:43 Pantoprazole Inj 40 Mg Vial IVP 03/11/25 08:59 40 mg BID ROBBIE Administration (Ipratropium [place] 2 ea 02/11/25 09:00 02/11/25 21:44 42 Mcg (0.06 %) NASAL 03/13/25 08:59 Not Given [place],Non-Aerosol BID ROBBIE Potassium Phos/Sodium Phos 1 packet 02/05/25 21:00 02/07/25 09:15 Naph,[facility] Mbdb 1 Packet (1.5 Gm) PO 03/07/25 20:59 Not Given On Hold: 02/07/25 10:47 BID ROBBIE Pyridoxine HCl 100 mg 02/11/25 10:15 02/11/25 10:19 Pyridoxine Inj 100 Mg/Ml Vial IV 03/13/25 10:14 100 mg QDAY ROBBIE Administration Plan 44-year-old male with history of hypertension, dyslipidemia, GERD, asthma, and childhood epilepsy admitted for metabolic encephalopathy secondary to thiamine deficiency and malnutrition with multiple electrolyte derangements. Nephrology following for fluid and electrolyte management. # Hypernatremia Na 146 today, despite being on D5W. Plan: * Patient currently on TPN. Electrolytes have been addressed. * Continue sodium monitoring * Continue D5W * Continue desmopressin # Non-anion gap metabolic acidosis Likely secondary to chloride load and NG losses. Improving. Plan: * Added bicarbonate in the TPN * Recheck CO2 daily * monitor acid-base status. # Hypophosphatemia (Mild) Phosphorus 2.5 after supplemenation, consistent with refeeding and poor intake. Plan: * Continue K-Phos supplementation. * Monitor daily until >3 # Hypomagnesemia (resolved) Mg 2.0, mild. Plan: * Continue IV magnesium repletion as needed. * Monitor levels daily. # LARISA (resolved) Cr 0.6, baseline, adequate urine output. Plan: * Continue to avoid nephrotoxins and IV contrast. * Maintain adequate hydration. # Thiamine deficiency / Wernicke?s encephalopathy Lab confirmed low thiamine Mental status significantly improved with IV therapy. Plan: * Continue thiamine --high-dose * Continue pyridoxine, B12 * Continue PPN support; monitor for refeeding complications. # Dysphagia / Ileus with NG suction NPO, unable to tolerate PO intake. GI following. ----- Plan discussed with attending physician Dr. Ciara Perez MD PGY-1 Internal Medicine Attending Provider Attestation/Addendum Patient seen and examined with resident physician Dr. Perez. Note reviewed, agree with findings and recommendations. Patient with a thiamine deficiency/Wernicke's encephalopathy. Marked improvement in mentation. Electrolyte seems to be better
[2025-02-12] MEDS: FLUTICASONE NAS SPRAY 0.05% 16 GM BTL 2 SPRAY NASAL (08:58)
--- NOTE | 2025-02-12 09:36 | PC.SS ---
Follow up note: SS spoke to patient's mother regarding placement. Patient's mother prefers [facility] or [facility] . SS will follow up with facilities and insurance will require prior auth. Patient was max assist with PT up until yesterday. Physician team states patient pending b.m.
[2025-02-12] MEDS: DESMOPRESSIN ACETATE 4 MCG/ML VIAL 2 MCG IV (11:42)
--- NOTE | 2025-02-12 13:06 | ESPR_ITS ---
<Statement entered by Moo Sawyer MD - 02/12/25 16:53> Patient was seen and evaluated at bedside this morning. No acute overnight events. Patient is still not had a bowel movement, abdominal x-ray with contrast shows good progression of contrast throughout the colon. At this time discussed with GI possibility of giving GoLytely to help patient with bowel movement, they agreed therefore we will start GoLytely via NG tube and possibly discontinue the NG tube tomorrow. Will also stop any further wrist restraints. Electrolytes are being repleted daily and patient is working with physical therapy and showing improvement. WBC down trended, therefore likely reactive in the setting of PPN. Still mildly tachycardic, but improving. Desmopressin was restarted. Will transition to thiamine 250 mg 3 times daily for 5 days followed by 100 mg daily. Patient will need SNF upon discharge. I have reviewed the note and agree with the resident's assessment & plan with exceptions as below. I have personally reviewed labs, imaging, home meds/prior records, examined the patient, formulated and discussed management plan with my attending Case disclosed with attending Dr. Arash Sawyer PGY2 Disclaimer: Even though this this note was dictated by speech recognition and even though it was carefully revised there may still be minor errors in auto driver due to voice recognition software. Documentation for date of: 02/12/25 Subjective Subjective Interval history: Overnight, wrist restraints placed due to patient attempting to pull out NG tube. Patient seen and examined at bedside. Alert and oriented x1, taking a minute to recall his first name. Still not oriented to place or time but continues to be communicative. Denies bodily pain. Vitals and labs reviewed. Telemetry reviewed, sinus tachycardia high 90s to 110. I/O 2.3/4.6, net neg 2.2. WBC 13.8, Hgb stable 12. Na 146, K 4.1, Na 113, Cr 0.6. Phos 2.5, AST/ALT uptrended to 73/73 from 35/51. Touch base with Dr. Campos given negative bowel study iso lack of bowel movements for weeks despite stool in colon. Possible removal of NG tube today. Continue PPN. General surgery to follow up post bowel study. Continue desmopressin 2 mcg due to significant urine output. Exam Vital Signs Temp Pulse Resp BP Pulse Ox O2 Del Method O2 Flow Rate 96.9 F 124 H 23 H 137/95 H 98 Room Air 2 02/12/25 11:58 02/12/25 11:58 02/12/25 11:58 02/12/25 11:58 02/12/25 11:58 02/12/25 11:58 02/11/25 20:00 Narrative Exam GENERAL: AOx1 to name only, following commands, NG tube in place HEENT: mucous membranes dry, bilateral sclera anicteric, +dental caries and front L tooth absent CARDIOVASCULAR: regular rate and rhythm, S1/S2 present, no murmurs appreciated PULMONARY: clear to auscultation bilaterally, no rales/rhonchi/wheezes ABDOMINAL: soft, non-tender, non-distended, no rebound/guarding, bowel sounds present EXTREMITIES: no peripheral edema SKIN: warm and dry, intact, no wounds NEURO: CN II-XII grossly intact, decreased BLE strength Objective Labs 02/12/25 04:41 02/12/25 04:41 Labs: Laboratory Results - last 24 hr 02/12/25 04:41 WBC 13.8 H RBC 3.90 L Hgb 12.0 L Hct 35.8 L MCV 92 MCH 30.8 MCHC 33.5 RDW Std Deviation 46.4 H Plt Count 178 D Neut % (Auto) 58 Lymph % (Auto) 29 Young % (Auto) 8 Eos % (Auto) 2 Baso % (Auto) 1 Neut # (Auto) 8.1 H Lymph # (Auto) 4.0 Young # (Auto) 1.2 H Eos # (Auto) 0.3 Baso # (Auto) 0.1 Immature Gran # (Auto) 0.20 H Absolute Nucleated RBC 0.00 Immature Gran % 1 H Nucleated RBC % 0 Sodium 146 H Potassium 4.1 D Chloride 113 H Carbon Dioxide 23.8 Anion Gap 9 BUN 10 Creatinine 0.6 Estim Creat Clear Calc 190.6 eGFR > 60 BUN/Creatinine Ratio 17 Glucose 103 Calculated Osmolality 289 Calcium 8.3 Corrected Calcium 9.0 Phosphorus 2.5 Magnesium 2.0 Total Bilirubin 0.4 AST 73 H ALT 73 H Alkaline Phosphatase 43 L Total Protein 5.7 Albumin 3.1 L Globulin 2.6 Albumin/Globulin Ratio 1.2 ABG Interpretation ABG results: 02/02/25 02/06/25 02/07/25 16:10 12:13 10:45 ABG pH 7.47 H ABG pCO2 24 L ABG pO2 96 ABG HCO3 17 L ABG O2 Saturation 98 ABG Base Excess -5 L VBG pH 7.55 7.47 VBG pCO2 25 L 21 L VBG pO2 113 H 71 H VBG Base Excess 1 -6 L Quality Measures Quality Measures VTE prophylaxis Assessment & Plan Assessment Current Active Medications: Generic Name Dose Route Start Last Admin Trade Name Bartolo PRN Reason Stop Dose Admin Acetaminophen 650 mg 02/02/25 16:12 Acetaminophen 325 Mg Tablet PO 03/04/25 15:11 Q6H PRN Fever >99.9 Atorvastatin Calcium 40 mg 02/11/25 09:00 02/12/25 08:49 Atorvastatin Calcium 20 Mg Tablet PO 03/13/25 08:59 Not Given DAILY ROBBIE Citric Acid/Sodium Citrate 30 ml 02/08/25 09:00 02/12/25 08:49 Citric Acid/Sodium Citr 15 Ml Udc (Bicitra) PO 03/10/25 08:59 Not Given BID ROBBIE Desmopressin Acetate 2 mcg 02/12/25 11:45 02/12/25 11:42 Desmopressin Acetate 4 Mcg/Ml Vial IV 03/14/25 11:44 2 mcg QDAY ROBBIE Administration Dextrose 50 ml 02/02/25 17:28 02/07/25 06:11 Dextrose 50%-Water Inj 50 Ml Syringe IV 03/04/25 17:27 50 ml Q15MIN PRN Administration BG <50 OR BG <70 & pt unresponsive Fluticasone Propionate 2 spray 02/11/25 09:00 02/12/25 08:58 Fluticasone Javad [place] 0.05% 16 Gm Btl NASAL 03/13/25 08:59 2 sprays DAILY ROBBIE Administration Glucagon 1 mg 02/02/25 17:28 Glucagon Inj 1 Mg Vial IM Q15MIN PRN BG <70, and no IV access Fat Emulsion Intravenous 500 mls @ 32 mls/hr 02/09/25 18:00 02/10/25 18:00 Intralipid 20% Iv IV 03/11/25 17:59 32 mls/hr [id number] ROBBIE Administration Multivitamins/Minerals 10 ml/ 2,044 mls @ 120 mls/hr 02/11/25 12:25 02/12/25 05:48 Potassium Acetate 40 meq/ IV 02/12/25 22:28 120 mls/hr Potassium Phosphate 30 mmol/ .Q17H2M ROBBIE Administration Magnesium Sulfate 2 gm/ Amino Acids Thiamine HCl 250 mg/ Sodium 102.5 mls @ 210 mls/hr 02/12/25 14:00 Chloride IV 03/14/25 13:59 TID ROBBIE Insulin Human Lispro 0 unit 02/07/25 00:00 02/12/25 12:12 Insulin Lispro (Admelog) 1 Unit/0.01 Ml Unit SC 03/09/25 00:00 Not Given Q6HR ROBBIE Protocol Montelukast Sodium 10 mg 02/11/25 09:00 02/12/25 08:50 Montelukast Sodium 10 Mg Tablet PO 03/13/25 08:59 Not Given DAILY ROBBIE Ondansetron HCl 4 mg 02/02/25 15:17 02/06/25 18:07 Ondansetron Inj 2 Mg/Ml Inj 2 Ml IVP 03/04/25 15:16 4 mg Q6H PRN Administration NAUSEA OR VOMITING Protocol Pantoprazole Sodium 40 mg 02/09/25 09:00 02/12/25 08:57 Pantoprazole Inj 40 Mg Vial IVP 03/11/25 08:59 40 mg BID ROBBIE Administration (Ipratropium [place] 2 ea 02/11/25 09:00 02/11/25 21:44 42 Mcg (0.06 %) NASAL 03/13/25 08:59 Not Given [place],Non-Aerosol BID [facility] Potassium Phos/Sodium Phos 1 packet 02/05/25 21:00 02/07/25 09:15 Naph,[facility] Mbdb 1 Packet (1.5 Gm) PO 03/07/25 20:59 Not Given On Hold: 02/07/25 10:47 BID ROBBIE Pyridoxine HCl 100 mg 02/11/25 10:15 02/12/25 08:58 Pyridoxine Inj 100 Mg/Ml Vial IV 03/13/25 10:14 100 mg QDAY ROBBIE Administration Plan [place] 44M with pmhx significant for HTN, hx of gastric angiodysplasias s/p cautery 12/20/24, GERD, asthma, HLD, 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 #Acute metabolic encephalopathy / #Thiamine deficiency #Elevated lactic acid, resolved #Distended small bowel loops #Sinus tachycardia Patient presented with altered mental status, was unable to give a history but was able to deny or admit symptoms for a review of systems. Patient met severe sepsis criteria on admission with tachycardia and leukocytosis in addition to lactic acid of 10.8, which is evidence of end organ damage due to hypoperfusion, however currently no source of infection identified and further differentials as below. Spoke with family who reported younger brother of possible BALTAZAR virus at age 17. Admission VBG showed a pH of 7.55 and a pCO2 of 25. Ammonia mildly elevated 36. Syphillis cocci HIV and hep panel neg. UDS neg, salicylates and acetaminophen neg. UA 1+ protein, 2+ blood, 54 RBC, 24 WBC, LE+. CK wnl 50, beta hydroxy 0.6, 02/06 ABG 7.47/24/96/17. 02/07 VBG 7.47//71/95 Lactic acid on admission 10.8->6.2->3.8->2.6 but then uptrended 4.1->2.7->5.2->4.5->2.5->3.1 despite fluids, eventually downtrended to 2.5-> 2.0. CT abdomen pelvis was negative for hydronephrosis or ureteral calculi. CXR unremarkable. UCx and BCx, likely due to recent outpatient antibiotic course. 02/04 Echo showed EF estimated 60-65% The right ventricle is normal in size and systolic function. Normal aortic valve. Trace mitral and trace tricuspid regurgitation NO EVIDENCE OF VEGETATIONS. TDS due to patient lying supine and non- cooperative EEG was abnormal with diffuse slowing suggestive of diffuse encephalopathy of metabolic, degenerative or vascular origin. No epileptiform discharges noted. Brain MRI negative for acute hemorrhage, mass effect or midline shift, no acute infarct or microvascular white matter change. 02/06 Abd XR showed multiple air distended small bowel loops in the central abdomen, orogastric tube in stomach but stomach remains air distended 02/07 CTA with cont shows 4 mm lower pole nonobstructing right renal calculus, no hydronephrosis or ureteral calculi. Normal appendix. Mildly fluid distended small bowel loops, consider ileus, enteritis such as Crohn's disease. No findings diagnostic for ischemic small bowel but clinical correlation is advised. 02/07 CT orbit/face shows significant bilateral chronic mastoiditis, negative for acute mastoiditis, negative for otitis media or acquired cholesteatoma Ddx: Source of elevated lactic acid and/or encephalopathy possibly 2/2 thiamine deficiency however unclear why patient experieces such dysphagia and weakness. Continued sinus tachycardia likely 2/2 constipation and dehydration. Patient's mentation continued to worsened until 02/08, suddenly improved able to recognize family members and speak in full sentences, however today, mental status worsening. 02/10 EGD showed few nonbleeding erosions at GE junction, diffuse moderate inflammation in gastric antrum, normal duodenum. Vanc (02/02-02/08), Cefepime (02/02-02/09), metronidazole (02/07-02/09) 02/12 Abdominal gastrograffin study negaive for SBO Thiamine resulted <6, thiamine 500 mg TID (02/09-02/11) Plan: - Neurology consulted, recs appreciated - GI consulted, recs appreciated: B12 injection x1, pyridoxine IV QD - Decreased thiamine from 500 mg to 250 mg TID for 5 days, then 100 mg QD - F/u prolactin, KOJO, dsDNA, MUSC antibodies, aceylcholine receptor antibodies - PT ordered, recommends SNF - PPN at 120 cc/hr for nutrition, 3L/24h (02/09- - General surgery consulted, recs appreciated #Electrolyte abnormalities #Hypernatremia, improved #Hypokalemia #Hyperchloremia #Hypophosphatemia #Hypomagnesemia #Hypocalcemia, resolved Patient presented with Na of 146, with gradual increase everyday despite D5W. Likely 2/2 poor PO intake 2/2 AMS. Cannot exclude neurological cause given patient is becoming more encephalopathic everyday. Ddx includes small bowel microischemia, RTA, HAGMA with respiratory compensation. Delta Delta calculated -8 with 10 labs signifying one of the three following: Mixed HAGMA and NAGMA. Mixed HAGMA with chronic respiratory alkalosis plys hyperchloremic acidosis. HAGMA with preexisting low anion gap state (hypoalbuminemia, paraproteinemia, etc). 10/ Ulytes sodium 145 protein 74 and potassium 40 and chloride 136. And repeat UA 1+ ketones no indication of UTI. Likely severely dehydrated due to poor p.o. intake for months. Free water decifit 6.2L. Patient has received cumulative 14L of fluids from 02/08 since admission with recorded output 1575 mL with Guo inserted on 02/06 however some of the fluids were NS. Plan: - Nephrology consulted, recs appreciated: - Plan for bicitra BID and oral free water flushes once can tolerate oral as currently NG tube is in place, - Continue D5W 120 cc/hr through PPN with goal of decreasing sodium 10-12 mEq over 24h, decrease rate or stop accordingly if Na exceeds goal - Continue desmopressin 2 mcg QD iso sudden increase in urine output on 02/08 - CTM sodium - Fluids as above #Normocytic anemia #Leukocytosis Initially Hgb 18.4, however following fluids resolved. However, on 02/07, Hgb decreased to 11.8 and stayed 10-12s. 12/22 iron panel iron wnl 97, TIBC high 201, iron sat 48, unsat iron binding low 104, ferritin 199. Ddx: anemia possible 06/10 decreased production due to lack of nutrients from decreased PO intake vs active GIB given black NG suctions. Leukocytosis likely reactive as patient has received full dose of cefepime and elevation occurred following PPN administration. Plan: - CTM CBC #Transaminitis, improving #Coagulopathy, improving #Metabolic dysfunction-associated steatotic liver disease #Non-obstructing gallstones On admission, PT elevated 14.6 with INR 1.4, and AST ALT 80/217. AST/ALT initially peaked and downtrended. Not on hepatotoxic home medication and denies alcohol use. Denies RUQ pain. Abdominal ultrasound negative for cholelithiasis or cholecystitis, multiple gallstones, liver 14.5 cm fatty infiltration no focal liver lesions Ddx includes acidotic state with elevated lactic acid impairing coagulation with subsequent liver and tissue damage. Plan: - CTM LFTs - Avoid hepatotoxic medications #GERD Per history taken from the patient's mother Plan: - IV pantoprazole 40 mg BID #Hypercholesterolemia Per history taken from patient's mother. Patient takes atorvastatin 40 mg p.o. daily at home Plan: - Hold in the presence of transaminitis #Asthma Per patient history gathered from patient's mother. Patient montelukast 10 mg p.o. daily Plan: - No indication for treatment at this time as patient is asymptomatic #Hyperglycemia (Resolved) Fingerstick glucose 237 on arrival. Per patient's mother, he does not have a history of diabetes. 02/03/25 A1c 5.9 Plan: - SSI in place #Hyperthyroidism (Resolved) Thyroxine 13.6 repeat thyroxine 1.18. Consider acute phase thyrotoxicosis reaction over underlying thyroid condition #Bilateral chronic mastoiditis Patient presented with mild occasional L mastoid tenderness, and family complained of persistent sinus infection. CT orbit showed significant bilateral chronic mastoiditis. Plan: - Recommend to follow up outpatient for further evaluation and management Hospital management: Lines: PIV Diet: NPO Bowel: none GI prophylaxis: IV pantoprazole 40 mg BID DVT prophylaxis: SCDs Disposition: tele, NG tube in place CODE STATUS: FULL CODE Plan of care discussed with attending Dr. Antoine, and PGY-2 Dr. Scott. Mercedes Yuen DO PGY-1 Internal Medicine Attending Provider Attestation/Addendum I have discussed and was present for the essential components of the history, physical examination, diagnosis, and treatment plan with the resident. I agree with the patient's care as documented by the resident and amended herein by me. Hugo Antoine DO. Although this document has been carefully reviewed, there may still be some phonetic and other typographical errors. These errors are purely grammatical due to imperfections in the software program and should not be construed in any way to compromise the substance of the patient's medical care during this visit. No acute events overnight, vital signs stable, patient afebrile, patient mildly tachycardic overnight with pulse rate in the low 100s, significant labs included WBC of 13, hemoglobin 12, sodium 136 and chloride of 113. Will continue PPN for now, and the NG tube for now pending gastroenterology recommendations, will also continue thiamine, multivitamins, desmopressin daily per nephrology recommendations. Patient has been accepted to SNF when he is ready, likely 1 to 2 days pending further clinical improvement and specialist recommendations.
[2025-02-12] MEDS: NA SU/NAHCO3/KC/PEG (Golytely) 4,000 ML BTL 4000 ML NG (13:45)
[2025-02-12] MEDS: THIAMINE INJ 250 MG in SODIUM CHLORIDE 0.9% 100 ML 210 MG IV ×2 (13:45→21:50)
[2025-02-12] MEDS: FAT EMULSIONS 20% IV 500 ML 32 ML IV (17:45)
--- NOTE | 2025-02-12 19:03 | ESPR_ITS ---
Documentation for date of: 02/12/25 Subjective Subjective Interval history: Patient examined at bedside. Blood pressure 137/95, tachycardia around 120. Labs unremarkable. NG tube remains in place on LIS. Patient still has not had bowel movement currently on GoLytely. Appears more awake today however oriented to self only. Per mother, patient still not back to his baseline. Continue IV thiamine. No plan for LP at this time. Exam Vital Signs Temp Pulse Resp BP Pulse Ox O2 Del Method O2 Flow Rate 97.1 F 112 H 15 124/98 H 99 Room Air 2 02/12/25 16:00 02/12/25 16:00 02/12/25 16:00 02/12/25 16:00 02/12/25 16:00 02/12/25 16:00 02/11/25 20:00 Narrative Exam GENERAL APPEARANCE: Middle age male, Well-developed, obese built male in no acute distress. HEENT: Normocephalic, atraumatic, extraocular movements intact. Pupils: Equal reacting to light NECK: Supple, no JVD or bruits. CARDIOVASULAR: Heart: S1, S2 heard, regular without S3-S4 or murmur no rubs or gallops. LUNGS/CHEST: Clear to auscultation bilaterally. No rails, rhonchi, or wheezing. Normal inspection. ABDOMEN: Soft, nontender, distended. No pulsatile masses. No rebound, rigidity, or guarding. Normal inspection and palpation. EXTREMITIES: Normal inspection and palpation. No edema, clubbing or cyanosis. SKIN: Warm and dry without rashes. Normal inspection. MUSCULOSKELETAL: No cervical, thoracic, lumbar or midline bony tenderness. Normal inspection. NEURO: Alert, awake and oriented x1. Cranial nerves: II through XII grossly intact. Speech and language: Normal with no dysarthria or dysphasia. Slow responses. Motor system: Tone and bulk: Normal: Strength: 5 out of 5 in all 4 extremities; No pronator drift noted. Deep tendon reflexes: 2+ bilaterally symmetrical. Plantar reflex: Downgoing bilaterally. Sensory system: Intact to all modalities of sensation bilaterally. Coordination: Intact to pisxva-ksaj-jgask and zgoc-shlp-iwml test bilaterally. No ataxia, no dysmetria, or dysdiadochokinesia noted. No intention tremors noted. Gait: Not tested. No signs of meningeal irritation noted. PSYCHIATRIC: Normal mood and affect. Objective Labs 02/13/25 04:35 02/13/25 04:35 Labs: Laboratory Results - last 24 hr 02/12/25 04:41 WBC 13.8 H RBC 3.90 L Hgb 12.0 L Hct 35.8 L MCV 92 MCH 30.8 MCHC 33.5 RDW Std Deviation 46.4 H Plt Count 178 D Neut % (Auto) 58 Lymph % (Auto) 29 [place] % (Auto) 8 Eos % (Auto) 2 Baso % (Auto) 1 Neut # (Auto) 8.1 H Lymph # (Auto) 4.0 [place] # (Auto) 1.2 H Eos # (Auto) 0.3 Baso # (Auto) 0.1 Immature Gran # (Auto) 0.20 H Absolute Nucleated RBC 0.00 Immature Gran % 1 H Nucleated RBC % 0 Sodium 146 H Potassium 4.1 D Chloride 113 H Carbon Dioxide 23.8 Anion Gap 9 BUN 10 Creatinine 0.6 Estim Creat Clear Calc 190.6 eGFR > 60 BUN/Creatinine Ratio 17 Glucose 103 Calculated Osmolality 289 Calcium 8.3 Corrected Calcium 9.0 Phosphorus 2.5 Magnesium 2.0 Total Bilirubin 0.4 AST 73 H ALT 73 H Alkaline Phosphatase 43 L Total Protein 5.7 Albumin 3.1 L Globulin 2.6 Albumin/Globulin Ratio 1.2 ABG Interpretation ABG results: 02/02/25 02/06/25 02/07/25 16:10 12:13 10:45 ABG pH 7.47 H ABG pCO2 24 L ABG pO2 96 ABG HCO3 17 L ABG O2 Saturation 98 ABG Base Excess -5 L VBG pH 7.55 7.47 VBG pCO2 25 L 21 L VBG pO2 113 H 71 H VBG Base Excess 1 -6 L Quality Measures Quality Measures VTE prophylaxis Assessment & Plan Assessment Current Active Medications: Generic Name Dose Route Start Last Admin Trade Name Freq PRN Reason Stop Dose Admin Acetaminophen 650 mg 02/02/25 16:12 Acetaminophen 325 Mg Tablet PO 03/04/25 15:11 Q6H PRN Fever >99.9 Atorvastatin Calcium 40 mg 02/11/25 09:00 02/12/25 08:49 Atorvastatin Calcium 20 Mg Tablet PO 03/13/25 08:59 Not Given DAILY ROBBIE Citric Acid/Sodium Citrate 30 ml 02/08/25 09:00 02/12/25 08:49 Citric Acid/Sodium Citr 15 Ml Udc (Bicitra) PO 03/10/25 08:59 Not Given BID [facility] Desmopressin Acetate 2 mcg 02/12/25 11:45 02/12/25 11:42 Desmopressin Acetate 4 Mcg/Ml Vial IV 03/14/25 11:44 2 mcg QDAY ROBBIE Administration Dextrose 50 ml 02/02/25 17:28 02/07/25 06:11 Dextrose 50%-Water Inj 50 Ml Syringe IV 03/04/25 17:27 50 ml Q15MIN PRN Administration BG <50 OR BG <70 & pt unresponsive Fluticasone Propionate 2 spray 02/11/25 09:00 02/12/25 08:58 Fluticasone Javad [place] 0.05% 16 Gm Btl NASAL 03/13/25 08:59 2 sprays DAILY ROBBIE Administration Glucagon 1 mg 02/02/25 17:28 Glucagon Inj 1 Mg Vial IM Q15MIN PRN BG <70, and no IV access Fat Emulsion Intravenous 500 mls @ 32 mls/hr 02/09/25 18:00 02/12/25 17:45 Intralipid 20% Iv IV 03/11/25 17:59 32 mls/hr [email or web address] ROBBIE Administration Multivitamins/Minerals 10 ml/ 2,044 mls @ 120 mls/hr 02/11/25 12:25 02/12/25 05:48 Potassium Acetate 40 meq/ IV 02/12/25 22:28 120 mls/hr Potassium Phosphate 30 mmol/ .Q17H2M ROBBIE Administration Magnesium Sulfate 2 gm/ Amino Acids Thiamine HCl 250 mg/ Sodium 102.5 mls @ 210 mls/hr 02/12/25 14:00 02/12/25 13:45 Chloride IV 03/14/25 13:59 210 mls/hr TID ROBBIE Administration Multivitamins/Minerals 10 ml/ 2,034 mls @ 120 mls/hr 02/12/25 22:28 Potassium Phosphate 30 mmol/ IV 02/13/25 15:24 Magnesium Sulfate 2 gm/ .[id number] [facility] Calcium Gluconate 1 gm/ Amino Acids Insulin Human Lispro 0 unit 02/07/25 00:00 02/12/25 17:23 Insulin Lispro (Admelog) 1 Unit/0.01 Ml Unit SC 03/09/25 00:00 Not Given Q6HR ROBBIE Protocol Montelukast Sodium 10 mg 02/11/25 09:00 02/12/25 08:50 Montelukast Sodium 10 Mg Tablet PO 03/13/25 08:59 Not Given DAILY ROBBIE Ondansetron HCl 4 mg 02/02/25 15:17 02/06/25 18:07 Ondansetron Inj 2 Mg/Ml Inj 2 Ml IVP 03/04/25 15:16 4 mg Q6H PRN Administration NAUSEA OR VOMITING Protocol Pantoprazole Sodium 40 mg 02/09/25 09:00 02/12/25 08:57 Pantoprazole Inj 40 Mg Vial IVP 03/11/25 08:59 40 mg BID ROBBIE Administration (Ipratropium [place] 2 ea 02/11/25 09:00 02/12/25 17:25 42 Mcg (0.06 %) NASAL 03/13/25 08:59 Not Given [place],Non-Aerosol BID ROBBIE Potassium Phos/Sodium Phos 1 packet 02/05/25 21:00 02/07/25 09:15 Naph,[facility] Mbdb 1 Packet (1.5 Gm) PO 03/07/25 20:59 Not Given On Hold: 02/07/25 10:47 BID ROBBIE Pyridoxine HCl 100 mg 02/11/25 10:15 02/12/25 08:58 Pyridoxine Inj 100 Mg/Ml Vial IV 03/13/25 10:14 100 mg QDAY ROBBIE Administration Plan Summary: Logan Dye is a 44-year-old male with a past medical history of hypertension, GERD, allergies, asthma, hypercholesterolemia, 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 He was admitted for severe sepsis. #Acute encephalopathy-improving #Thiamine deficiency Significant improvement after oral supplementation. Thiamine levels low at <6. Patient presented with altered mental status, poor historian. anion gap of 25 and appeared to be compensating in a respiratory manner appropriate for metabolic acidosis, as VBG showed a pH of 7.55 and a pCO2 of 25 Patient denied dysuria, urine positive for 1+ protein, 2+ blood, 54 RBC, 24 white blood cells, leukocyte esterase positive CT abdomen pelvis was negative for hydronephrosis or ureteral calculi Urine and blood cultures negative, likely due to recent outpatient antibiotic course, Cocci serology negative EEG was nondiagnostic. No evidence of seizure-like activity. Brain MRI Negative for acute hemorrhage or acute infarct. Echo on 02/04 showed EF 60-65%, no evidence of vegetations -MG workup including acetylcholine receptors and [facility] antibodies are pending -Thiamine IV - Pyridoxine 100 mg daily -PT -PPN at 120 cc/hr for nutrition -mentation slowly improving, LP deferred #Hypernatremia #Transaminitis #Elevated PT #Hyperammonemia (Resolved) #Elevated INR (Resolved) #Hyperthyroidism (Resolved) #Hyperglycemia (Resolved) #GERD #Hypercholesterolemia #Asthma #Acute anion gap metabolic acidosis (Resolved) #Non obstructing gallstones #distended small bowel loops Primary care team to manage above conditions and ongoing care needs. The patient's management plan was discussed with my attending physician Dr. Broderick. Amanda Turner, PGY-2 Attending Provider Attestation/Addendum I personally have seen and examined the patient at the bedside and I agree with resident's findings, assessment and plan of care. Patient's mental status is improving gradually and is close to baseline. He continues to have generalized weakness, encouraged him to participate with physical therapy as he feels better with the abdominal distention once he starts having bowel movement with the GoLytely. Continue with thiamine.
--- NOTE | 2025-02-12 19:31 | PD.IMPROG ---
Documentation for date of: 02/12/25 Subjective Subjective Interval history: Small bowel follow-through negative for any small bowel obstruction case discussed with internal medicine team We can give GoLytely via the NGT to flush the colon out Exam Vital Signs Temp Pulse Resp BP Pulse Ox O2 Del Method O2 Flow Rate 97.1 F 112 H 15 124/98 H 99 Room Air 2 02/12/25 16:00 02/12/25 16:00 02/12/25 16:00 02/12/25 16:00 02/12/25 16:00 02/12/25 16:00 02/11/25 20:00 Objective Labs 02/12/25 04:41 02/12/25 04:41 Labs: Laboratory Results - last 24 hr 02/12/25 04:41 WBC 13.8 H RBC 3.90 L Hgb 12.0 L Hct 35.8 L MCV 92 MCH 30.8 MCHC 33.5 RDW Std Deviation 46.4 H Plt Count 178 D Neut % (Auto) 58 Lymph % (Auto) 29 [place] % (Auto) 8 Eos % (Auto) 2 Baso % (Auto) 1 Neut # (Auto) 8.1 H Lymph # (Auto) 4.0 [place] # (Auto) 1.2 H Eos # (Auto) 0.3 Baso # (Auto) 0.1 Immature Gran # (Auto) 0.20 H Absolute Nucleated RBC 0.00 Immature Gran % 1 H Nucleated RBC % 0 Sodium 146 H Potassium 4.1 D Chloride 113 H Carbon Dioxide 23.8 Anion Gap 9 BUN 10 Creatinine 0.6 Estim Creat Clear Calc 190.6 eGFR > 60 BUN/Creatinine Ratio 17 Glucose 103 Calculated Osmolality 289 Calcium 8.3 Corrected Calcium 9.0 Phosphorus 2.5 Magnesium 2.0 Total Bilirubin 0.4 AST 73 H ALT 73 H Alkaline Phosphatase 43 L Total Protein 5.7 Albumin 3.1 L Globulin 2.6 Albumin/Globulin Ratio 1.2 Impressions Impression: Stool impaction no evidence of small bowel obstruction Flush the colon with GoLytely via NGT ABG Interpretation ABG results: 02/02/25 02/06/25 02/07/25 16:10 12:13 10:45 ABG pH 7.47 H ABG pCO2 24 L ABG pO2 96 ABG HCO3 17 L ABG O2 Saturation 98 ABG Base Excess -5 L VBG pH 7.55 7.47 VBG pCO2 25 L 21 L VBG pO2 113 H 71 H VBG Base Excess 1 -6 L Assessment & Plan Time Spent With Patient Time: Total time spent is greater than 50% in coordination of care (as documented) at patient's floor/unit and/or counseling patient:
[2025-02-12] MEDS: CITRIC ACID/SODIUM CITR 15 ML UDC (BICITRA) 30 ML PO (20:54)
[2025-02-12] MEDS: MAGNESIUM SULF IV (23:07)
[2025-02-12] MEDS: [UNRECOGNIZED DRUG - OTHER] IV (23:07)
[2025-02-13] VITALS (7 sets, daily range): BP systolic 100–134; BP diastolic 78–93; PULSE 107–129; RESP 13–18; TEMP 35.9–36.4; O2SAT 95–97; BMI 43.7
[2025-02-13] MEDS: NA SU/NAHCO3/KC/PEG (Golytely) 4,000 ML BTL 4000 ML NG (04:32)
[2025-02-13] MEDS: THIAMINE INJ 250 MG in SODIUM CHLORIDE 0.9% 100 ML 210 MG IV ×3 (05:22→21:05)
[2025-02-13 05:28] LABS: Basophils # (Auto) 0.1 Thou/mm3 (0.0-0.2); Basophils % (Auto) 1 % (0-2.5); Eosinophils # (Auto) 0.3 Thou/mm3 (0.0-0.5); Eosinophils % (Auto) 2 % (0-10); Hematocrit 36.8 % (41.0-53.0); Hemoglobin 12.7 g/dL (13.5-16.0); Immature Granulocytes Auto 0.21 Thou/mm3 (0.00-0.00); Lymphocytes # (Auto) 4.6 Thou/mm3 (1.0-4.8); Lymphocytes % (Auto) 31 % (10-50); Mean Corpuscular HGB Conc 34.5 g/dl (31.0-37.0); Mean Corpuscular Hemoglobin 31.8 pg (25.0-35.0); Mean Corpuscular Volume 92 fL (80-100); Monocytes # (Auto) 0.9 Thou/mm3 (0.0-0.8); Monocytes % (Auto) 6 % (0-12); Neutrophils # (Auto) 8.5 Thou/mm3 (1.8-7.7); Neutrophils % (Auto) 58 % (37-80); Nucleated Red Blood Cell # 0.03 Thou/mm3 (0.00-0.00); Nucleated Red Blood Cell % 0 /100 WBC (0); Platelet Count 265 Thou/mm3 (140-440); RDW Standard Deviation 47.2 fL (35.1-43.9); Red Blood Count 3.99 Miln/mm3 (4.50-5.90); White Blood Count 14.6 Thou/mm3 (3.8-10.6)
[2025-02-13 06:01] LABS: Alanine Aminotransferase 97 U/L (10-49); Albumin, Serum 3.6 gm/dL (3.5-5.0); Albumin/Globulin Ratio 1.3 (1.2-2.2); Alkaline Phosphatase 50 U/L (46-116); Anion Gap 12 (7-16); Aspartate Amino Transferase 88 U/L (0-34); BUN/Creatinine Ratio 22 Ratio (12-20); Bilirubin,Total 0.4 mg/dL (0.3-1.2); Blood Urea Nitrogen 13 mg/dL (9-23); Calcium 8.9 mg/dL (8.3-10.6); Calcium (Corrected) 9.2 mg/dL (8.5-10.1); Carbon Dioxide 23.5 mMol/L (20.0-31.0); Chloride 106 mMol/L (98-107); Creatinine (Component) 0.6 mg/dL (0.6-1.3); Estimated Creatinine Clearance 190.6 mL/min (>60); Globulin 2.7 gm/dL (2.3-3.5); Glucose 110 mg/dL (74-106); Magnesium 2.0 mg/dL (1.6-2.6); Osmolality,Calculated 282 (275-295); Phosphorous 2.6 mg/dL (2.4-5.1); Potassium 3.7 mMol/L (3.4-5.1); Sodium 141 mMol/L (136-145); Total Protein 6.3 gm/dL (5.7-8.2); eGFR > 60 See Note
[2025-02-13 06:21] LABS: Prolactin* 13.3 ng/mL (2.0-18.0)
--- NOTE | 2025-02-13 09:07 | PC.SS ---
follow up note: Patient still pending authorization. Patient has been 24 hours off restraints. He is paticipating with PT. Patient and mother are agreeable to d/c plan to [facility].
--- NOTE | 2025-02-13 09:24 | ESPR_ITS ---
Documentation for date of: 02/13/25 Subjective Subjective Interval history: Mr Dye is a 44-year-old gentleman with a past medical history of hypertension, dyslipidemia, reflux, asthma, epilepsy (took phenobarbital 10 years ago), allergies was brought to the emergency department with altered mental status. Patient was altered in the ER and unable to give any history. As per the chart the patient was tachycardic tand was found to have a lactic acid of 10.8 with a white count of 24. Patient was admitted with a diagnosis of sepsis of unknown source. In the last 3 months he has been declining significantly. Last admission to the hospital was December 2024 for dysphagia and had a dilation by Dr. Campos. Patient continues to have symptoms of dysphagia. During this admission he was noted to have 40 pound weight loss and significant altered mental status. Patient was seen by neurology-CT brain negative. UA did not show any activity. LP was supposed to be done yesterday but unable to. Patient was seen by GI. could not get significant history as patient seems to be very sleepy. He has extensive workup done during this admission-CT abdomen showed nonobstructing renal calculi with no hydronephrosis. Chest x-ray negative. Abdominal ultrasound showed gallstones with no cholecystitis. Also has fatty liver. Echocardiogram showed ejection fraction 60%. EEG no seizure activity. MRI brain negative. CTA abdomen showed no ischemia. Lumbar puncture attempted but unsuccessful. Patient going for repeat LP possibly today with IR. 02/07/2025 patient currently seen in telemetry. Labs showed blood pressure 121/89, heart rate 116. Sleepy. White count 7.3, hemoglobin 11.8, platelets 154. Coags negative. ABG yesterday showed pH 7.47, pCO2 74, HCO3 17. carboxyhemoglobin 4.4. Sodium 153, potassium 3.4, chloride 125, bicarbonate 15.6, creatinine 0.6, lactic acid 4.5, calcium 7.7, phosphorus 1.7, magnesium 1.5, LFTs elevated, albumin 2.8 urinalysis and urine lites pending is nonreactive cocci negative hep panel negative HIV negative 02/08/2025 patient currently seen in telemetry today still with NG tube suction. More alert and awake and able to converse with me today. Started p.o. Bicitra. Urinalysis showed pH of 5.0, specific gravity 1032. Urine lytes positive for anion gap. 02/09/2025: Patient currently seen in telemetry. Mentation fluctuates; today more lethargic and minimally responsive compared to yesterday when he was conversant. Does not follow commands consistently. NG tube remains in place on low intermittent suction. No bowel movement reported overnight. Guo in place with adequate urine output. Blood pressure 93/71, heart rate 90. Sodium 148, chloride 119, bicarbonate 20, creatinine 0.7, phosphorus 2.0, magnesium 1.9, calcium 8.9. On D5W infusion and desmopressin. K-Phos started for hypophosphatemia. Lactic acid remains downtrended. Continues on cefepime and Flagyl. 02/11/2025: Patient seen in telemetry. Mentation improving; awake, talkative, follows commands. Moves all extremities. Denies nausea, vomiting, or pain. NG tube remains in place with ongoing dark output. Urine output stable. On PPN and D5W 120 mL/hr with desmopressin 2 mcg daily. Continues on high-dose thiamine 500 mg IV BID after confirmed deficiency. No fevers. Mild tachycardia persists. Labs today: WBC 14.3, Hgb 12.6, Na 144, K 3.6, Cl 110, Ca 9.4, Phos 1.9, Mg 1.7, Cr 0.5. 02/12/2025: Patient seen in telemetry. Mentation remains improved. Patient is awake, talkative, and responsive. Moves all extremities spontaneously. Denies nausea, vomiting, or pain. No bowel movement yet. NG tube remains in place though no longer draining dark output. Urine output stable and adequate. Continues on PPN and D5W. Desmopressin dose fell out overnight ? will resume today. Thiamine now transitioned to 250 mg IV BID per protocol. Afebrile, hemodynamically stable aside from mild tachycardia. Latest vitals: BP 127/90, HR 105. Labs: WBC 13.8, Hgb 12.0, Plt 178, Na 146, K 4.1, Cl 113, Cr 0.6, Ca 9.0. 02/13/2025: Patient seen in telemetry this morning. He was asleep during rounds and less interactive compared to prior days, likely fatigued. No acute events overnight. Remains hemodynamically stable. Urine output continues to be adequate. NG tube remains in place. Continues on PPN, D5W, and desmopressin. Thiamine 250 mg IV BID per protocol. No new GI output or bowel movement reported. Vitals: BP 100/70, HR 110. Labs: WBC 14.6, Hgb 12.7, Na 141, K 3.7, Cr 0.6, Mg and Phos within normal limits. LFTs trending slightly upward; albumin remains normal. Exam Vital Signs Temp Pulse Resp BP Pulse Ox O2 Del Method O2 Flow Rate 97.0 F 118 H 17 119/93 H 96 Room Air 2 02/13/25 08:00 02/13/25 08:00 02/13/25 08:00 02/13/25 08:00 02/13/25 08:00 02/13/25 08:00 02/11/25 20:00 Narrative Exam GENERAL: Alert, conversant, no acute distress; NG tube in place drainage. HEENT: MMM, PERRLA, no scleral icterus. NECK: Supple, no JVD. CV: Regular rate and rhythm, no murmurs. RESP: Clear to auscultation bilaterally. ABDOMEN: Soft, mildly distended, non-tender, bowel sounds present. EXTREMITIES: No edema; moves all extremities. SKIN: Warm, dry, intact. NEURO: Oriented to name, follows commands, speech clear; strength improved in all extremities Objective Labs 02/13/25 04:35 02/13/25 04:35 Labs: Laboratory Results - last 24 hr 02/06/25 02/13/25 13:09 04:35 WBC 14.6 H RBC 3.99 L Hgb 12.7 L Hct 36.8 L MCV 92 MCH 31.8 MCHC 34.5 RDW Std Deviation 47.2 H Plt Count 265 D Neut % (Auto) 58 Lymph % (Auto) 31 [place] % (Auto) 6 Eos % (Auto) 2 Baso % (Auto) 1 Neut # (Auto) 8.5 H Lymph # (Auto) 4.6 [place] # (Auto) 0.9 H Eos # (Auto) 0.3 Baso # (Auto) 0.1 Immature Gran # (Auto) 0.21 H Absolute Nucleated RBC 0.03 H Immature Gran % 1 H Nucleated RBC % 0 Sodium 141 Potassium 3.7 Chloride 106 Carbon Dioxide 23.5 Anion Gap 12 BUN 13 Creatinine 0.6 Estim Creat Clear Calc 190.6 eGFR > 60 BUN/Creatinine Ratio 22 H Glucose 110 H Calculated Osmolality 282 Calcium 8.9 Corrected Calcium 9.2 Phosphorus 2.6 Magnesium 2.0 Total Bilirubin 0.4 AST 88 H ALT 97 H Alkaline Phosphatase 50 Total Protein 6.3 Albumin 3.6 D Globulin 2.7 Albumin/Globulin Ratio 1.3 Prolactin (Send Out) 13.3 ABG Interpretation ABG results: 02/02/25 02/06/25 02/07/25 16:10 12:13 10:45 ABG pH 7.47 H ABG pCO2 24 L ABG pO2 96 ABG HCO3 17 L ABG O2 Saturation 98 ABG Base Excess -5 L VBG pH 7.55 7.47 VBG pCO2 25 L 21 L VBG pO2 113 H 71 H VBG Base Excess 1 -6 L Quality Measures Quality Measures VTE prophylaxis Assessment & Plan Assessment Current Active Medications: Generic Name Dose Route Start Last Admin Trade Name Freq PRN Reason Stop Dose Admin Acetaminophen 650 mg 02/13/25 09:11 Acetaminophen 325 Mg Tablet NG 03/04/25 15:11 Q6H PRN Fever >99.9 Atorvastatin Calcium 40 mg 02/13/25 21:00 Atorvastatin Calcium 20 Mg Tablet NG 03/13/25 08:59 HS ROBBIE Citric Acid/Sodium Citrate 30 ml 02/13/25 09:11 Citric Acid/Sodium Citr 15 Ml Udc (Bicitra) NG 03/10/25 08:59 BID ROBBIE Desmopressin Acetate 2 mcg 02/12/25 11:45 02/12/25 11:42 Desmopressin Acetate 4 Mcg/Ml Vial IV 03/14/25 11:44 2 mcg QDAY ROBBIE Administration Dextrose 50 ml 02/02/25 17:28 02/07/25 06:11 Dextrose 50%-Water Inj 50 Ml Syringe IV 03/04/25 17:27 50 ml Q15MIN PRN Administration BG <50 OR BG <70 & pt unresponsive Fluticasone Propionate 2 spray 02/11/25 09:00 02/12/25 08:58 Fluticasone Javad [place] 0.05% 16 Gm Btl NASAL 03/13/25 08:59 2 sprays DAILY ROBBIE Administration Glucagon 1 mg 02/02/25 17:28 Glucagon Inj 1 Mg Vial IM Q15MIN PRN BG <70, and no IV access Fat Emulsion Intravenous 500 mls @ 32 mls/hr 02/09/25 18:00 02/12/25 17:45 Intralipid 20% Iv IV 03/11/25 17:59 32 mls/hr [id number] ROBBIE Administration Thiamine HCl 250 mg/ Sodium 102.5 mls @ 210 mls/hr 02/12/25 14:00 02/13/25 05:22 Chloride IV 03/14/25 13:59 210 mls/hr TID ROBBIE Administration Multivitamins/Minerals 10 ml/ 2,034 mls @ 120 mls/hr 02/12/25 22:28 02/12/25 23:07 Potassium Phosphate 30 mmol/ IV 02/13/25 15:24 120 mls/hr Magnesium Sulfate 2 gm/ .[id number] ROBBIE Administration Calcium Gluconate 1 gm/ Amino Acids Insulin Human Lispro 0 unit 02/07/25 00:00 02/13/25 05:18 Insulin Lispro (Admelog) 1 Unit/0.01 Ml Unit SC 03/09/25 00:00 Not Given Q6HR [facility] Protocol Montelukast Sodium 10 mg 02/13/25 09:30 Montelukast Sodium 10 Mg Tablet NG 03/15/25 09:29 DAILY [facility] Ondansetron HCl 4 mg 02/02/25 15:17 02/06/25 18:07 Ondansetron Inj 2 Mg/Ml Inj 2 Ml IVP 03/04/25 15:16 4 mg Q6H PRN Administration NAUSEA OR VOMITING Protocol Pantoprazole Sodium 40 mg 02/09/25 09:00 02/12/25 20:54 Pantoprazole Inj 40 Mg Vial IVP 03/11/25 08:59 40 mg BID ROBBIE Administration (Ipratropium [place] 2 ea 02/11/25 09:00 02/12/25 20:56 42 Mcg (0.06 %) NASAL 03/13/25 08:59 Not Given [place],Non-Aerosol BID [facility] Potassium Phos/Sodium Phos 1 packet 02/05/25 21:00 02/07/25 09:15 Naph,[facility] Mbdb 1 Packet (1.5 Gm) PO 03/07/25 20:59 Not Given On Hold: 02/07/25 10:47 BID [facility] Pyridoxine HCl 100 mg 02/11/25 10:15 02/12/25 08:58 Pyridoxine Inj 100 Mg/Ml Vial IV 03/13/25 10:14 100 mg QDAY ROBBIE Administration Plan 44-year-old male with history of hypertension, dyslipidemia, GERD, asthma, and childhood epilepsy admitted for metabolic encephalopathy secondary to thiamine deficiency and malnutrition with multiple electrolyte derangements. Nephrology following for fluid and electrolyte management. # Hypernatremia (resolved) Na 141 today. Plan: * Patient currently on TPN. Electrolytes have been addressed. * Continue sodium monitoring * Continue D5W * Continue desmopressin # Non-anion gap metabolic acidosis Likely secondary to chloride load and NG losses. Improving. Plan: * Added bicarbonate in the TPN * Recheck CO2 daily * monitor acid-base status. # Hypophosphatemia (Mild) Phosphorus 2.6 after supplemenation, consistent with refeeding and poor intake. Plan: * Continue K-Phos supplementation. * Monitor daily until >3 # Hypomagnesemia (resolved) Mg 2.0, mild. Plan: * Continue IV magnesium repletion as needed. * Monitor levels daily. # LARISA (resolved) Cr 0.6, baseline, adequate urine output. Plan: * Continue to avoid nephrotoxins and IV contrast. * Maintain adequate hydration. # Thiamine deficiency / Wernicke?s encephalopathy Lab confirmed low thiamine Mental status significantly improved with IV therapy. Plan: * Continue thiamine * Continue pyridoxine, B12 * Continue PPN support; monitor for refeeding complications. # Dysphagia / Ileus with NG suction NPO, unable to tolerate PO intake. GI following. ----- Plan discussed with attending physician Dr. Ciara Perez MD PGY-1 Internal Medicine Attending Provider Attestation/Addendum Patient seen and examined with resident physician Dr. Perez. Note reviewed, agree with findings and recommendations. Patient with Wernicke's encephalopathy-on high-dose thiamine. Improving. Electrolytes better
[2025-02-13] MEDS: FLUTICASONE NAS SPRAY 0.05% 16 GM BTL 2 SPRAY NASAL (09:45)
[2025-02-13] MEDS: MONTELUKAST SODIUM 10 MG TABLET NG (09:47)
[2025-02-13] MEDS: DESMOPRESSIN ACETATE 4 MCG/ML VIAL 2 MCG IV (09:47)
--- NOTE | 2025-02-13 12:37 | XR_ITS ---
Examination: Abdomen AP single view Technique: AP portable supine abdomen, single view Exam date and time: February 13, 2025, 1406 hours INDICATIONS: Abdominal pain and constipation today FINDINGS: Abundant contrast throughout the entire colon with mild colonic dilatation No small bowel obstruction IMPRESSION: Mild small bowel ileus
--- NOTE | 2025-02-13 14:51 | PD.RESPRO ---
Documentation for date of: 02/13/25 Subjective Subjective Interval history: Patient was seen and evaluated at bedside this morning. No acute overnight events. Patient has still not had a bowel movement, but states that he felt like he was going to the bathroom. He has finished 1 GoLyt[address] and is on the way out for his second GoLytely at this time. Discussed the case with GI specialist about the possibility of discontinuing the NG tube and starting the patient on p.o. trial and possibly starting oral feeds to transition from PPN. GI agreed therefore we will discontinue NG tube and start p.o. trial and small frequent meals. Otherwise patient was a lot more alert today and did not have restraints. DBC slightly up trended, but this is likely reactive. Patient would likely require manual disimpaction. No other complaints at this time. Exam Vital Signs Temp Pulse Resp BP Pulse Ox O2 Del Method O2 Flow Rate 97.1 F 122 H 18 124/80 96 Room Air 2 02/13/25 12:00 02/13/25 12:00 02/13/25 12:00 02/13/25 12:00 02/13/25 12:00 02/13/25 12:00 02/11/25 20:00 Narrative Exam General: A/O x1 (only to name), no acute distress, more alert and oriented today. Eyes: PERRL, EOMI. Anicteric, vision grossly intact. Ears: No ear pain, no ear discharge, Hearing grossly intact. Nose: No nasal discharge. Mouth/Throat: Moist mucous membranes, no redness, no lesions. Neck: Neck supple, non-tender, no cervical lymphadenopathy. Lungs: Clear THIERRY to auscultation and percussion, No accessory muscle use. Cardio: Normal S1/S2, regular rhythm, no murmurs, no JVD or carotid bruits. Abdomen: Soft, non-tender, no palpable masses, peristalsis present, no guarding or rebound. Extremities: Symmetrical, no significant deformities, no peripheral edema , non-tender, peripheral pulses presents. Skin: No rashes, no lesions, warm to touch. Neuro: No focal neurological deficits. following commands and strength THIERRY UE and LE 4/5, sensory intact Psych: Cooperative,flat affect Objective Labs 02/13/25 04:35 02/13/25 04:35 Labs: Laboratory Results - last 24 hr 02/06/25 02/13/25 13:09 04:35 WBC 14.6 H RBC 3.99 L Hgb 12.7 L Hct 36.8 L MCV 92 MCH 31.8 MCHC 34.5 RDW Std Deviation 47.2 H Plt Count 265 D Neut % (Auto) 58 Lymph % (Auto) 31 Real % (Auto) 6 Eos % (Auto) 2 Baso % (Auto) 1 Neut # (Auto) 8.5 H Lymph # (Auto) 4.6 Real # (Auto) 0.9 H Eos # (Auto) 0.3 Baso # (Auto) 0.1 Immature Gran # (Auto) 0.21 H Absolute Nucleated RBC 0.03 H Immature Gran % 1 H Nucleated RBC % 0 Sodium 141 Potassium 3.7 Chloride 106 Carbon Dioxide 23.5 Anion Gap 12 BUN 13 Creatinine 0.6 Estim Creat Clear Calc 190.6 eGFR > 60 BUN/Creatinine Ratio 22 H Glucose 110 H Calculated Osmolality 282 Calcium 8.9 Corrected Calcium 9.2 Phosphorus 2.6 Magnesium 2.0 Total Bilirubin 0.4 AST 88 H ALT 97 H Alkaline Phosphatase 50 Total Protein 6.3 Albumin 3.6 D Globulin 2.7 Albumin/Globulin Ratio 1.3 Prolactin (Send Out) 13.3 ABG Interpretation ABG results: 02/02/25 02/06/25 02/07/25 16:10 12:13 10:45 ABG pH 7.47 H ABG pCO2 24 L ABG pO2 96 ABG HCO3 17 L ABG O2 Saturation 98 ABG Base Excess -5 L VBG pH 7.55 7.47 VBG pCO2 25 L 21 L VBG pO2 113 H 71 H VBG Base Excess 1 -6 L Quality Measures Quality Measures VTE prophylaxis Assessment & Plan Assessment Current Active Medications: Generic Name Dose Route Start Last Admin Trade Name Freq PRN Reason Stop Dose Admin Acetaminophen 650 mg 02/13/25 09:11 Acetaminophen 325 Mg Tablet NG 03/04/25 15:11 Q6H PRN Fever >99.9 Atorvastatin Calcium 40 mg 02/13/25 21:00 Atorvastatin Calcium 20 Mg Tablet NG 03/13/25 08:59 HS ROBBIE Citric Acid/Sodium Citrate 30 ml 02/13/25 09:11 Citric Acid/Sodium Citr 15 Ml Udc (Bicitra) NG 03/10/25 08:59 BID ROBBIE Desmopressin Acetate 2 mcg 02/12/25 11:45 02/13/25 09:47 Desmopressin Acetate 4 Mcg/Ml Vial IV 03/14/25 11:44 2 mcg QDAY ROBBIE Administration Dextrose 50 ml 02/02/25 17:28 02/07/25 06:11 Dextrose 50%-Water Inj 50 Ml Syringe IV 03/04/25 17:27 50 ml Q15MIN PRN Administration BG <50 OR BG <70 & pt unresponsive Fluticasone Propionate 2 spray 02/11/25 09:00 02/13/25 09:45 Fluticasone Javad [place] 0.05% 16 Gm Btl NASAL 03/13/25 08:59 2 sprays DAILY ROBBIE Administration Glucagon 1 mg 02/02/25 17:28 Glucagon Inj 1 Mg Vial IM Q15MIN PRN BG <70, and no IV access Fat Emulsion Intravenous 500 mls @ 32 mls/hr 02/09/25 18:00 02/12/25 17:45 Intralipid 20% Iv IV 03/11/25 17:59 32 mls/hr [email or web address] ROBBIE Administration Thiamine HCl 250 mg/ Sodium 102.5 mls @ 210 mls/hr 02/12/25 14:00 02/13/25 13:57 Chloride IV 03/14/25 13:59 210 mls/hr TID ROBBIE Administration Multivitamins/Minerals 10 ml/ 2,034 mls @ 120 mls/hr 02/12/25 22:28 02/12/25 23:07 Potassium Phosphate 30 mmol/ IV 02/13/25 15:24 120 mls/hr Magnesium Sulfate 2 gm/ .[id number] ROBBIE Administration Calcium Gluconate 1 gm/ Amino Acids Multivitamins/Minerals 10 ml/ 2,049 mls @ 120 mls/hr 02/13/25 15:25 Potassium Phosphate 30 mmol/ IV 02/15/25 01:34 Magnesium Sulfate 2 gm/ .Q17H5M [facility] Potassium Acetate 50 meq/ Amino Acids Insulin Human Lispro 0 unit 02/07/25 00:00 02/13/25 12:35 Insulin Lispro (Admelog) 1 Unit/0.01 Ml Unit SC 03/09/25 00:00 Not Given Q6HR [facility] Protocol Montelukast Sodium 10 mg 02/13/25 09:30 02/13/25 09:47 Montelukast Sodium 10 Mg Tablet NG 03/15/25 09:29 10 mg DAILY ROBBIE Administration Ondansetron HCl 4 mg 02/02/25 15:17 02/06/25 18:07 Ondansetron Inj 2 Mg/Ml Inj 2 Ml IVP 03/04/25 15:16 4 mg Q6H PRN Administration NAUSEA OR VOMITING Protocol Pantoprazole Sodium 40 mg 02/09/25 09:00 02/13/25 09:46 Pantoprazole Inj 40 Mg Vial IVP 03/11/25 08:59 40 mg BID ROBBIE Administration (Ipratropium [place] 2 ea 02/11/25 09:00 02/13/25 09:58 42 Mcg (0.06 %) NASAL 03/13/25 08:59 Not Given [place],Non-Aerosol BID ROBBIE Potassium Phos/Sodium Phos 1 packet 02/05/25 21:00 02/07/25 09:15 Naph,[facility] Mbdb 1 Packet (1.5 Gm) PO 03/07/25 20:59 Not Given On Hold: 02/07/25 10:47 BID ROBBIE Pyridoxine HCl 100 mg 02/11/25 10:15 02/13/25 09:46 Pyridoxine Inj 100 Mg/Ml Vial IV 03/13/25 10:14 100 mg QDAY ROBBIE Administration Plan Logan Dye 44M with pmhx significant for HTN, hx of gastric angiodysplasias s/p cautery 12/20/24, GERD, asthma, HLD, 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 #Acute metabolic encephalopathy 2/2 malnutrition/vitamin deficiency #Elevated lactic acid, resolved #Distended small bowel loops, likely possible ileus #Sinus tachycardia Patient presented with altered mental status, was unable to give a history but was able to deny or admit symptoms for a review of systems. Patient met severe sepsis criteria on admission with tachycardia and leukocytosis in addition to lactic acid of 10.8, which is evidence of end organ damage due to hypoperfusion, however currently no source of infection identified and further differentials as below. Spoke with family who reported younger brother of possible BALTAZAR virus at age 17. Admission VBG showed a pH of 7.55 and a pCO2 of 25. Ammonia mildly elevated 36. Syphillis cocci HIV and hep panel neg. UDS neg, salicylates and acetaminophen neg. UA 1+ protein, 2+ blood, 54 RBC, 24 WBC, LE+. CK wnl 50, beta hydroxy 0.6, 02/06 ABG 7.47/24/96/17. 02/07 VBG 7.47/21/71/95 Lactic acid on admission 10.8->6.2->3.8->2.6 but then uptrended 4.1->2.7->5.2->4.5->2.5->3.1 despite fluids, eventually downtrended to 2.5-> 2.0. CT abdomen pelvis was negative for hydronephrosis or ureteral calculi. CXR unremarkable. UCx and BCx, likely due to recent outpatient antibiotic course. 02/04 Echo showed EF estimated 60-65% The right ventricle is normal in size and systolic function. Normal aortic valve. Trace mitral and trace tricuspid regurgitation NO EVIDENCE OF VEGETATIONS. TDS due to patient lying supine and non- cooperative EEG was abnormal with diffuse slowing suggestive of diffuse encephalopathy of metabolic, degenerative or vascular origin. No epileptiform discharges noted. Brain MRI negative for acute hemorrhage, mass effect or midline shift, no acute infarct or microvascular white matter change. 02/06 Abd XR showed multiple air distended small bowel loops in the central abdomen, orogastric tube in stomach but stomach remains air distended 02/07 CTA with cont shows 4 mm lower pole nonobstructing right renal calculus, no hydronephrosis or ureteral calculi. Normal appendix. Mildly fluid distended small bowel loops, consider ileus, enteritis such as Crohn's disease. No findings diagnostic for ischemic small bowel but clinical correlation is advised. 02/07 CT orbit/face shows significant bilateral chronic mastoiditis, negative for acute mastoiditis, negative for otitis media or acquired cholesteatoma Ddx: Source of elevated lactic acid and/or encephalopathy possibly 2/2 thiamine deficiency however unclear why patient experieces such dysphagia and weakness. Continued sinus tachycardia likely 2/2 constipation and dehydration. Patient's mentation continued to worsened until 02/08, suddenly improved able to recognize family members and speak in full sentences, however today, mental status worsening. 02/10 EGD showed few nonbleeding erosions at GE junction, diffuse moderate inflammation in gastric antrum, normal duodenum. Vanc (02/02-02/08), Cefepime (02/02-02/09), metronidazole (02/07-02/09) 02/12 Abdominal gastrograffin study negaive for SBO Thiamine resulted <6, thiamine 500 mg TID (02/09-02/11) Plan: - Will discontinue NG tube and start PO intake with small frequent meals. - KUB ordered, patient may benefit from manual disimpaction - Neurology consulted, recs appreciated - GI consulted, recs appreciated: B12 injection x1, pyridoxine IV QD - Continue 250 mg TID for 5 days, then 100 mg QD - F/u prolactin, KOJO, dsDNA, MUSC antibodies, aceylcholine receptor antibodies - PT ordered, recommends SNF - PPN at 120 cc/hr for nutrition, 3L/24h (02/09- - General surgery consulted, recs appreciated #Electrolyte abnormalities #Hypernatremia, improved #Hypokalemia #Hyperchloremia #Hypophosphatemia #Hypomagnesemia #Hypocalcemia, resolved Patient presented with Na of 146, with gradual increase everyday despite D5W. Likely 2/2 poor PO intake 2/2 AMS. Cannot exclude neurological cause given patient is becoming more encephalopathic everyday. Ddx includes small bowel microischemia, RTA, HAGMA with respiratory compensation. Delta Delta calculated -8 with 02/07 labs signifying one of the three following: Mixed HAGMA and NAGMA. Mixed HAGMA with chronic respiratory alkalosis plys hyperchloremic acidosis. HAGMA with preexisting low anion gap state (hypoalbuminemia, paraproteinemia, etc). / Ulytes sodium 145 protein 74 and potassium 40 and chloride 136. And repeat UA 1+ ketones no indication of UTI. Likely severely dehydrated due to poor p.o. intake for months. Free water decifit 6.2L. Patient has received cumulative 14L of fluids from 02/08 since admission with recorded output 1575 mL with Guo inserted on 02/06 however some of the fluids were NS. Plan: - Replete electrolytes as necessary - Nephrology consulted, recs appreciated: - Plan for bicitra BID and oral free water flushes once can tolerate oral as currently NG tube is in place, - Continue D5W 120 cc/hr through PPN with goal of decreasing sodium 10-12 mEq over 24h, decrease rate or stop accordingly if Na exceeds goal - Continue desmopressin 2 mcg QD iso sudden increase in urine output on 02/08 - CTM sodium - Fluids as above #Normocytic anemia #Leukocytosis Initially Hgb 18.4, however following fluids resolved. However, on 02/07, Hgb decreased to 11.8 and stayed 10-12s. 12/22 iron panel iron wnl 97, TIBC high 201, iron sat 48, unsat iron binding low 104, ferritin 199. Ddx: anemia possible 06/10 decreased production due to lack of nutrients from decreased PO intake vs active GIB given black NG suctions. Leukocytosis likely reactive as patient has received full dose of cefepime and elevation occurred following PPN administration. Plan: - CTM CBC #Transaminitis, improving #Coagulopathy, improving #Metabolic dysfunction-associated steatotic liver disease #Non-obstructing gallstones On admission, PT elevated 14.6 with INR 1.4, and AST ALT 80/217. AST/ALT initially peaked and downtrended. Not on hepatotoxic home medication and denies alcohol use. Denies RUQ pain. Abdominal ultrasound negative for cholelithiasis or cholecystitis, multiple gallstones, liver 14.5 cm fatty infiltration no focal liver lesions Ddx includes acidotic state with elevated lactic acid impairing coagulation with subsequent liver and tissue damage. Plan: - CTM LFTs - Avoid hepatotoxic medications #GERD Per history taken from the patient's mother Plan: - IV pantoprazole 40 mg BID #Hypercholesterolemia Per history taken from patient's mother. Patient takes atorvastatin 40 mg p.o. daily at home Plan: - Hold in the presence of transaminitis #Asthma Per patient history gathered from patient's mother. Patient montelukast 10 mg p.o. daily Plan: - No indication for treatment at this time as patient is asymptomatic #Hyperglycemia (Resolved) Fingerstick glucose 237 on arrival. Per patient's mother, he does not have a history of diabetes. 02/03/25 A1c 5.9 Plan: - SSI in place #Hyperthyroidism (Resolved) Thyroxine 13.6 repeat thyroxine 1.18. Consider acute phase thyrotoxicosis reaction over underlying thyroid condition #Bilateral chronic mastoiditis Patient presented with mild occasional L mastoid tenderness, and family complained of persistent sinus infection. CT orbit showed significant bilateral chronic mastoiditis. Plan: - Recommend to follow up outpatient for further evaluation and management Disposition: Patient pending transition from PPN to full PO intake Diet: Dysphagia, small frequent meals GI prophylaxis: protonix DVT prophylaxis: SCDs Code: Full Case disclosed with Attending Dr. Arash Sawyer PGY2 Disclaimer: Even though this this note was dictated by speech recognition and even though it was carefully revised there may still be minor errors in manager materials management due to voice recognition software. Attending Provider Attestation/Addendum I have discussed and was present for the essential components of the history, physical examination, diagnosis, and treatment plan with the resident. I agree with the patient's care as documented by the resident and amended herein by me. Hugo Antoine DO. Although this document has been carefully reviewed, there may still be some phonetic and other typographical errors. These errors are purely grammatical due to imperfections in the software program and should not be construed in any way to compromise the substance of the patient's medical care during this visit.
--- NOTE | 2025-02-13 17:00 | PD.RESPRO ---
Documentation for date of: 02/13/25 Subjective Subjective Interval history: Patient examined at bedside. Mentation is improving, slightly confused but notable improvement overall. Continues to state his own name but unable to recall time and location. Per nursing, still not had bowel movement and now on second jug of [place]. BP stable, HR still tachy around 100. WBCs uptrended to 14, glucose 110 this morning. He shoud continue working with PT with IV thiamine. Appears closer to his baseline. Exam Vital Signs Temp Pulse Resp BP Pulse Ox O2 Del Method O2 Flow Rate 97.1 F 122 H 18 124/80 96 Room Air 2 02/13/25 12:00 02/13/25 12:00 02/13/25 12:00 02/13/25 12:00 02/13/25 12:00 02/13/25 12:00 02/11/25 20:00 Narrative Exam GENERAL APPEARANCE: Middle age male, Well-developed, obese built male in no acute distress. HEENT: Normocephalic, atraumatic, extraocular movements intact. Pupils: Equal reacting to light NECK: Supple, no JVD or bruits. CARDIOVASULAR: Heart: S1, S2 heard, regular without S3-S4 or murmur no rubs or gallops. LUNGS/CHEST: Clear to auscultation bilaterally. No rails, rhonchi, or wheezing. Normal inspection. ABDOMEN: Soft, nontender, distended. No pulsatile masses. No rebound, rigidity, or guarding. Normal inspection and palpation. EXTREMITIES: Normal inspection and palpation. No edema, clubbing or cyanosis. SKIN: Warm and dry without rashes. Normal inspection. MUSCULOSKELETAL: No cervical, thoracic, lumbar or midline bony tenderness. Normal inspection. NEURO: Alert, awake and oriented x1. Cranial nerves: II through XII grossly intact. Speech and language: Normal with no dysarthria or dysphasia. Slow responses. Motor system: Tone and bulk: Normal: Strength: 5 out of 5 in all 4 extremities; No pronator drift noted. Deep tendon reflexes: 2+ bilaterally symmetrical. Plantar reflex: Downgoing bilaterally. Sensory system: Intact to all modalities of sensation bilaterally. Coordination: Intact to [id number] and jpvq-[id number] test bilaterally. No ataxia, no dysmetria, or dysdiadochokinesia noted. No intention tremors noted. Gait: Not tested. No signs of meningeal irritation noted. PSYCHIATRIC: Normal mood and affect. Objective Labs 02/13/25 04:35 02/13/25 04:35 Labs: Laboratory Results - last 24 hr 02/06/25 02/13/25 13:09 04:35 WBC 14.6 H RBC 3.99 L Hgb 12.7 L Hct 36.8 L MCV 92 MCH 31.8 MCHC 34.5 RDW Std Deviation 47.2 H Plt Count 265 D Neut % (Auto) 58 Lymph % (Auto) 31 [place] % (Auto) 6 Eos % (Auto) 2 Baso % (Auto) 1 Neut # (Auto) 8.5 H Lymph # (Auto) 4.6 Parker # (Auto) 0.9 H Eos # (Auto) 0.3 Baso # (Auto) 0.1 Immature Gran # (Auto) 0.21 H Absolute Nucleated RBC 0.03 H Immature Gran % 1 H Nucleated RBC % 0 Sodium 141 Potassium 3.7 Chloride 106 Carbon Dioxide 23.5 Anion Gap 12 BUN 13 Creatinine 0.6 Estim Creat Clear Calc 190.6 eGFR > 60 BUN/Creatinine Ratio 22 H Glucose 110 H Calculated Osmolality 282 Calcium 8.9 Corrected Calcium 9.2 Phosphorus 2.6 Magnesium 2.0 Total Bilirubin 0.4 AST 88 H ALT 97 H Alkaline Phosphatase 50 Total Protein 6.3 Albumin 3.6 D Globulin 2.7 Albumin/Globulin Ratio 1.3 Prolactin (Send Out) 13.3 ABG Interpretation ABG results: 02/02/25 02/06/25 02/07/25 16:10 12:13 10:45 ABG pH 7.47 H ABG pCO2 24 L ABG pO2 96 ABG HCO3 17 L ABG O2 Saturation 98 ABG Base Excess -5 L VBG pH 7.55 7.47 VBG pCO2 25 L 21 L VBG pO2 113 H 71 H VBG Base Excess 1 -6 L Quality Measures Quality Measures VTE prophylaxis Assessment & Plan Assessment Current Active Medications: Generic Name Dose Route Start Last Admin Trade Name Freq PRN Reason Stop Dose Admin Acetaminophen 650 mg 02/13/25 09:11 Acetaminophen 325 Mg Tablet NG 03/04/25 15:11 Q6H PRN Fever >99.9 Atorvastatin Calcium 40 mg 02/13/25 21:00 Atorvastatin Calcium 20 Mg Tablet NG 03/13/25 08:59 HS ROBBIE Citric Acid/Sodium Citrate 30 ml 02/13/25 09:11 Citric Acid/Sodium Citr 15 Ml Udc (Bicitra) NG 03/10/25 08:59 BID ROBBIE Desmopressin Acetate 2 mcg 02/12/25 11:45 02/13/25 09:47 Desmopressin Acetate 4 Mcg/Ml Vial IV 03/14/25 11:44 2 mcg QDAY ROBBIE Administration Dextrose 50 ml 02/02/25 17:28 02/07/25 06:11 Dextrose 50%-Water Inj 50 Ml Syringe IV 03/04/25 17:27 50 ml Q15MIN PRN Administration BG <50 OR BG <70 & pt unresponsive Fluticasone Propionate 2 spray 02/11/25 09:00 02/13/25 09:45 Fluticasone Javad [place] 0.05% 16 Gm Btl NASAL 03/13/25 08:59 2 sprays DAILY ROBBIE Administration Glucagon 1 mg 02/02/25 17:28 Glucagon Inj 1 Mg Vial IM Q15MIN PRN BG <70, and no IV access Fat Emulsion Intravenous 500 mls @ 32 mls/hr 02/09/25 18:00 02/12/25 17:45 Intralipid 20% Iv IV 03/11/25 17:59 32 mls/hr [email or web address] ROBBIE Administration Thiamine HCl 250 mg/ Sodium 102.5 mls @ 210 mls/hr 02/12/25 14:00 02/13/25 13:57 Chloride IV 03/14/25 13:59 210 mls/hr TID ROBBIE Administration Multivitamins/Minerals 10 ml/ 2,049 mls @ 120 mls/hr 02/13/25 15:25 Potassium Phosphate 30 mmol/ IV 02/15/25 01:34 Magnesium Sulfate 2 gm/ .Q17H5M [facility] Potassium Acetate 50 meq/ Amino Acids Insulin Human Lispro 0 unit 02/07/25 00:00 02/13/25 12:35 Insulin Lispro (Admelog) 1 Unit/0.01 Ml Unit SC 03/09/25 00:00 Not Given Q6HR [facility] Protocol Montelukast Sodium 10 mg 02/13/25 09:30 02/13/25 09:47 Montelukast Sodium 10 Mg Tablet NG 03/15/25 09:29 10 mg DAILY ROBBIE Administration Ondansetron HCl 4 mg 02/02/25 15:17 02/06/25 18:07 Ondansetron Inj 2 Mg/Ml Inj 2 Ml IVP 03/04/25 15:16 4 mg Q6H PRN Administration NAUSEA OR VOMITING Protocol Pantoprazole Sodium 40 mg 02/09/25 09:00 02/13/25 09:46 Pantoprazole Inj 40 Mg Vial IVP 03/11/25 08:59 40 mg BID ROBBIE Administration (Ipratropium [place] 2 ea 02/11/25 09:00 02/13/25 09:58 42 Mcg (0.06 %) NASAL 03/13/25 08:59 Not Given [place],Non-Aerosol BID ROBBIE Potassium Phos/Sodium Phos 1 packet 02/05/25 21:00 02/07/25 09:15 Naph,[facility] Mbdb 1 Packet (1.5 Gm) PO 03/07/25 20:59 Not Given On Hold: 02/07/25 10:47 BID ROBBIE Pyridoxine HCl 100 mg 02/11/25 10:15 02/13/25 09:46 Pyridoxine Inj 100 Mg/Ml Vial IV 03/13/25 10:14 100 mg QDAY ROBBIE Administration Plan Summary: Logan Dye is a 44-year-old male with a past medical history of hypertension, GERD, allergies, asthma, hypercholesterolemia, 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 He was admitted for severe sepsis. #Acute encephalopathy-improving #Thiamine deficiency Significant improvement after oral supplementation. Thiamine levels low at <6. Patient presented with altered mental status, poor historian. anion gap of 25 and appeared to be compensating in a respiratory manner appropriate for metabolic acidosis, as VBG showed a pH of 7.55 and a pCO2 of 25 Patient denied dysuria, urine positive for 1+ protein, 2+ blood, 54 RBC, 24 white blood cells, leukocyte esterase positive CT abdomen pelvis was negative for hydronephrosis or ureteral calculi Urine and blood cultures negative, likely due to recent outpatient antibiotic course, Cocci serology negative EEG was nondiagnostic. No evidence of seizure-like activity. Brain MRI Negative for acute hemorrhage or acute infarct. Echo on 02/04 showed EF 60-65%, no evidence of vegetations -MG workup including acetylcholine receptors and [facility] antibodies are pending - Continue IV thiaimine 250 mg TID for 5 days, then 100 mg QD - Pyridoxine 100 mg daily -PT daily -primary care team planning to dc PPN and start oral feeds -mentation slowly improving, LP deferred #Hypernatremia #Transaminitis #Elevated PT #Hyperammonemia (Resolved) #Elevated INR (Resolved) #Hyperthyroidism (Resolved) #Hyperglycemia (Resolved) #GERD #Hypercholesterolemia #Asthma #Acute anion gap metabolic acidosis (Resolved) #Non obstructing gallstones #distended small bowel loops Primary care team to manage above conditions and ongoing care needs. The patient's management plan was discussed with my attending physician Dr. Broderick. Amanda Turner, PGY-2 Attending Provider Attestation/Addendum I personally have seen and examined the patient at the bedside and agreed with resident's findings, assessment and plan of care. Patient's mental status has improved significantly and he is able to answer questions appropriately. He is generally weak and hope that he is able to participate with the physical therapy tomorrow as the abdominal discomfort has gotten better and he is off of NG tube and is started on oral diet.
[2025-02-13] MEDS: MAGNESIUM SULF IV (18:36)
[2025-02-13] MEDS: [UNRECOGNIZED DRUG - OTHER] IV (18:36)
[2025-02-13] MEDS: POTASSIUM PHOS IV (18:36)
[2025-02-13] MEDS: MULTIVITAMIN IV (18:36)
--- NOTE | 2025-02-13 20:40 | ESPR_ITS ---
Documentation for date of: 02/13/25 Subjective Subjective Interval history: Patient evaluated no bowel movement Small bowel follow-through negative for any small bowel obstruction Case discussed with internal medicine team NGT discontinued Diet started Reviewed the KUB from yesterday appears to have stool in the rectal vault Exam Vital Signs Temp Pulse Resp BP Pulse Ox O2 Del Method O2 Flow Rate 96.7 F L 129 H 17 115/80 95 Room Air 2 02/13/25 19:58 02/13/25 19:58 02/13/25 19:58 02/13/25 19:58 02/13/25 19:58 02/13/25 19:58 02/11/25 20:00 Objective Labs 02/13/25 04:35 02/13/25 04:35 Labs: Laboratory Results - last 24 hr 02/06/25 02/13/25 13:09 04:35 WBC 14.6 H RBC 3.99 L Hgb 12.7 L Hct 36.8 L MCV 92 MCH 31.8 MCHC 34.5 RDW Std Deviation 47.2 H Plt Count 265 D Neut % (Auto) 58 Lymph % (Auto) 31 [place] % (Auto) 6 Eos % (Auto) 2 Baso % (Auto) 1 Neut # (Auto) 8.5 H Lymph # (Auto) 4.6 [place] # (Auto) 0.9 H Eos # (Auto) 0.3 Baso # (Auto) 0.1 Immature Gran # (Auto) 0.21 H Absolute Nucleated RBC 0.03 H Immature Gran % 1 H Nucleated RBC % 0 Sodium 141 Potassium 3.7 Chloride 106 Carbon Dioxide 23.5 Anion Gap 12 BUN 13 Creatinine 0.6 Estim Creat Clear Calc 190.6 eGFR > 60 BUN/Creatinine Ratio 22 H Glucose 110 H Calculated Osmolality 282 Calcium 8.9 Corrected Calcium 9.2 Phosphorus 2.6 Magnesium 2.0 Total Bilirubin 0.4 AST 88 H ALT 97 H Alkaline Phosphatase 50 Total Protein 6.3 Albumin 3.6 D Globulin 2.7 Albumin/Globulin Ratio 1.3 Prolactin (Send Out) 13.3 Impressions Impression: No evidence of small bowel obstruction or colonic obstruction on imaging studies Plan DC NGT Advance diet as tolerated ABG Interpretation ABG results: 02/02/25 02/06/25 02/07/25 16:10 12:13 10:45 ABG pH 7.47 H ABG pCO2 24 L ABG pO2 96 ABG HCO3 17 L ABG O2 Saturation 98 ABG Base Excess -5 L VBG pH 7.55 7.47 VBG pCO2 25 L 21 L VBG pO2 113 H 71 H VBG Base Excess 1 -6 L Assessment & Plan Time Spent With Patient Time: Total time spent is greater than 50% in coordination of care (as documented) at patient's floor/unit and/or counseling patient:
[2025-02-13] MEDS: ATORVASTATIN CALCIUM 20 MG TABLET 40 MG NG (20:53)
[2025-02-13] MEDS: CITRIC ACID/SODIUM CITR 15 ML UDC (BICITRA) 30 ML NG (20:53)
[2025-02-13] MEDS: ONDANSETRON INJ 2 MG/ML INJ 2 ML 4 MG IVP (21:17)
--- NOTE | 2025-02-13 22:42 | PC.NURSE ---
called resident Harriet, pt bedside glucose was changed to ACHS but insulin order was not changed. resident will look in the chart.
--- NOTE | 2025-02-13 23:20 | PC.NURSE ---
provider Danielone notified of uptrend in HR in the last 24hours pts HR has slowly increased from 107 to 130. no new orders received
[2025-02-14] VITALS: BP 111/81; PULSE 123; PULSE 128; RESP 12; TEMP 37.2; O2SAT 99
[2025-02-14] MEDS: RINGERS LACTATED 500 ML 500 ML 999 ML IV (00:05)
[2025-02-14 04:00] VITALS: BP 134/100; PULSE 111; PULSE 114; RESP 19; TEMP 36.3; O2SAT 98
[2025-02-14 05:20] VITALS: BMI 44.6
[2025-02-14 05:43] LABS: Basophils # (Auto) 0.0 Thou/mm3 (0.0-0.2); Basophils % (Auto) 0 % (0-2.5); Eosinophils # (Auto) 0.2 Thou/mm3 (0.0-0.5); Eosinophils % (Auto) 1 % (0-10); Hematocrit 34.5 % (41.0-53.0); Hemoglobin 11.7 g/dL (13.5-16.0); Immature Granulocytes Auto 0.11 Thou/mm3 (0.00-0.00); Lymphocytes # (Auto) 3.4 Thou/mm3 (1.0-4.8); Lymphocytes % (Auto) 24 % (10-50); Mean Corpuscular HGB Conc 33.9 g/dl (31.0-37.0); Mean Corpuscular Hemoglobin 30.9 pg (25.0-35.0); Mean Corpuscular Volume 91 fL (80-100); Monocytes # (Auto) 0.9 Thou/mm3 (0.0-0.8); Monocytes % (Auto) 6 % (0-12); Neutrophils # (Auto) 9.8 Thou/mm3 (1.8-7.7); Neutrophils % (Auto) 68 % (37-80); Nucleated Red Blood Cell # 0.00 Thou/mm3 (0.00-0.00); Nucleated Red Blood Cell % 0 /100 WBC (0); Platelet Count 325 Thou/mm3 (140-440); RDW Standard Deviation 45.9 fL (35.1-43.9); Red Blood Count 3.79 Miln/mm3 (4.50-5.90); White Blood Count 14.3 Thou/mm3 (3.8-10.6)
[2025-02-14] MEDS: THIAMINE INJ 250 MG in SODIUM CHLORIDE 0.9% 100 ML 210 MG IV ×3 (05:55→22:09)
[2025-02-14 06:08] LABS: Alanine Aminotransferase 77 U/L (10-49); Albumin, Serum 3.4 gm/dL (3.5-5.0); Albumin/Globulin Ratio 1.3 (1.2-2.2); Alkaline Phosphatase 53 U/L (46-116); Anion Gap 11 (7-16); Aspartate Amino Transferase 59 U/L (0-34); BUN/Creatinine Ratio 17 Ratio (12-20); Bilirubin,Total 0.5 mg/dL (0.3-1.2); Blood Urea Nitrogen 10 mg/dL (9-23); Calcium 8.7 mg/dL (8.3-10.6); Calcium (Corrected) 9.2 mg/dL (8.5-10.1); Carbon Dioxide 24.0 mMol/L (20.0-31.0); Chloride 107 mMol/L (98-107); Creatinine (Component) 0.6 mg/dL (0.6-1.3); Estimated Creatinine Clearance 195.1 mL/min (>60); Globulin 2.6 gm/dL (2.3-3.5); Glucose 99 mg/dL (74-106); Magnesium 1.8 mg/dL (1.6-2.6); Osmolality,Calculated 282 (275-295); Phosphorous 2.9 mg/dL (2.4-5.1); Potassium 3.4 mMol/L (3.4-5.1); Sodium 142 mMol/L (136-145); Total Protein 6.0 gm/dL (5.7-8.2); eGFR > 60 See Note
[2025-02-14 06:44] LABS: ANA Pattern NUCLEAR, NUCLEOLAR; ANA Screen, IFA POSITIVE (NEGATIVE); ANA Titer 1:160 titer; ANA Titer 1:320 titer; DNA (ds) Antibody* <1 IU/mL
[2025-02-14 08:00] VITALS: BP 122/98; PULSE 113; RESP 15; TEMP 36.4; O2SAT 97
[2025-02-14] MEDS: MONTELUKAST SODIUM 10 MG TABLET PO (08:29)
[2025-02-14] MEDS: CITRIC ACID/SODIUM CITR 15 ML UDC (BICITRA) 30 ML PO ×2 (08:31→22:10)
[2025-02-14] MEDS: DESMOPRESSIN ACETATE 4 MCG/ML VIAL 2 MCG IV (08:45)
--- NOTE | 2025-02-14 09:30 | ESPR_ITS ---
Documentation for date of: 02/14/25 Subjective Subjective Interval history: Mr Dye is a 44-year-old gentleman with a past medical history of hypertension, dyslipidemia, reflux, asthma, epilepsy (took phenobarbital 10 years ago), allergies was brought to the emergency department with altered mental status. Patient was altered in the ER and unable to give any history. As per the chart the patient was tachycardic tand was found to have a lactic acid of 10.8 with a white count of 24. Patient was admitted with a diagnosis of sepsis of unknown source. In the last 3 months he has been declining significantly. Last admission to the hospital was December 2024 for dysphagia and had a dilation by Dr. Campos. Patient continues to have symptoms of dysphagia. During this admission he was noted to have 40 pound weight loss and significant altered mental status. Patient was seen by neurology-CT brain negative. UA did not show any activity. LP was supposed to be done yesterday but unable to. Patient was seen by GI. could not get significant history as patient seems to be very sleepy. He has extensive workup done during this admission-CT abdomen showed nonobstructing renal calculi with no hydronephrosis. Chest x-ray negative. Abdominal ultrasound showed gallstones with no cholecystitis. Also has fatty liver. Echocardiogram showed ejection fraction 60%. EEG no seizure activity. MRI brain negative. CTA abdomen showed no ischemia. Lumbar puncture attempted but unsuccessful. Patient going for repeat LP possibly today with IR. 02/07/2025 patient currently seen in telemetry. Labs showed blood pressure 121/89, heart rate 116. Sleepy. White count 7.3, hemoglobin 11.8, platelets 154. Coags negative. ABG yesterday showed pH 7.47, pCO2 74, HCO3 17. carboxyhemoglobin 4.4. Sodium 153, potassium 3.4, chloride 125, bicarbonate 15.6, creatinine 0.6, lactic acid 4.5, calcium 7.7, phosphorus 1.7, magnesium 1.5, LFTs elevated, albumin 2.8 urinalysis and urine lites pending is nonreactive cocci negative hep panel negative HIV negative 02/08/2025 patient currently seen in telemetry today still with NG tube suction. More alert and awake and able to converse with me today. Started p.o. Bicitra. Urinalysis showed pH of 5.0, specific gravity 1032. Urine lytes positive for anion gap. 02/09/2025: Patient currently seen in telemetry. Mentation fluctuates; today more lethargic and minimally responsive compared to yesterday when he was conversant. Does not follow commands consistently. NG tube remains in place on low intermittent suction. No bowel movement reported overnight. Guo in place with adequate urine output. Blood pressure 93/71, heart rate 90. Sodium 148, chloride 119, bicarbonate 20, creatinine 0.7, phosphorus 2.0, magnesium 1.9, calcium 8.9. On D5W infusion and desmopressin. K-Phos started for hypophosphatemia. Lactic acid remains downtrended. Continues on cefepime and Flagyl. 02/11/2025: Patient seen in telemetry. Mentation improving; awake, talkative, follows commands. Moves all extremities. Denies nausea, vomiting, or pain. NG tube remains in place with ongoing dark output. Urine output stable. On PPN and D5W 120 mL/hr with desmopressin 2 mcg daily. Continues on high-dose thiamine 500 mg IV BID after confirmed deficiency. No fevers. Mild tachycardia persists. Labs today: WBC 14.3, Hgb 12.6, Na 144, K 3.6, Cl 110, Ca 9.4, Phos 1.9, Mg 1.7, Cr 0.5. 02/12/2025: Patient seen in telemetry. Mentation remains improved. Patient is awake, talkative, and responsive. Moves all extremities spontaneously. Denies nausea, vomiting, or pain. No bowel movement yet. NG tube remains in place though no longer draining dark output. Urine output stable and adequate. Continues on PPN and D5W. Desmopressin dose fell out overnight ? will resume today. Thiamine now transitioned to 250 mg IV BID per protocol. Afebrile, hemodynamically stable aside from mild tachycardia. Latest vitals: BP 127/90, HR 105. Labs: WBC 13.8, Hgb 12.0, Plt 178, Na 146, K 4.1, Cl 113, Cr 0.6, Ca 9.0. 02/13/2025: Patient seen in telemetry this morning. He was asleep during rounds and less interactive compared to prior days, likely fatigued. No acute events overnight. Remains hemodynamically stable. Urine output continues to be adequate. NG tube remains in place. Continues on PPN, D5W, and desmopressin. Thiamine 250 mg IV BID per protocol. No new GI output or bowel movement reported. Vitals: BP 100/70, HR 110. Labs: WBC 14.6, Hgb 12.7, Na 141, K 3.7, Cr 0.6, Mg and Phos within normal limits. LFTs trending slightly upward; albumin remains normal. 02/14/2025: Patient seen in telemetry, doing much better overall. Mentation continues to improve, awake, alert, and talkative. Denies nausea, vomiting, or abdominal pain. No fevers or chills. NG tube has been removed and patient tolerated the removal well. Continues on PPN and D5W with desmopressin resumed. Urine output stable and adequate. Labs reviewed: WBC 14.3, Hgb 11.7, Hct 34.5, Plt 325, Na 142, K 3.4, Cl 107, CO2 24, Cr 0.6 (GFR >60), Ca 8.7, Phos 2.9, Mg 1.8. LFTs remain mildly elevated but stable. UA, urine protein, and urine electrolytes ordered to assess for possible UTI in light of rising WBC. Continue to evaluate for partial central diabetes insipidus given prior sodium fluctuations and response to DDAVP. Exam Vital Signs Temp Pulse Resp BP Pulse Ox O2 Del Method O2 Flow Rate 97.6 F 113 H 15 122/98 H 97 Room Air 2 02/14/25 08:00 02/14/25 08:00 02/14/25 08:00 02/14/25 08:00 02/14/25 08:00 02/14/25 08:00 02/11/25 20:00 Narrative Exam GENERAL: Alert, conversant, no acute distress; NG tube removed HEENT: MMM, PERRLA, no scleral icterus. NECK: Supple, no JVD. CV: Regular rate and rhythm, no murmurs. RESP: Clear to auscultation bilaterally. ABDOMEN: Soft, mildly distended, non-tender, bowel sounds present. EXTREMITIES: No edema; moves all extremities. SKIN: Warm, dry, intact. NEURO: Oriented to name, follows commands, speech clear; strength improved in all extremities Objective Labs 02/14/25 04:49 02/14/25 04:49 Labs: Laboratory Results - last 24 hr 02/07/25 02/14/25 07:50 04:49 WBC 14.3 H RBC 3.79 L Hgb 11.7 L Hct 34.5 L MCV 91 MCH 30.9 MCHC 33.9 RDW Std Deviation 45.9 H Plt Count 325 D Neut % (Auto) 68 Lymph % (Auto) 24 [place] % (Auto) 6 Eos % (Auto) 1 Baso % (Auto) 0 Neut # (Auto) 9.8 H Lymph # (Auto) 3.4 [place] # (Auto) 0.9 H Eos # (Auto) 0.2 Baso # (Auto) 0.0 Immature Gran # (Auto) 0.11 H Absolute Nucleated RBC 0.00 Immature Gran % 1 H Nucleated RBC % 0 Sodium 142 Potassium 3.4 Chloride 107 Carbon Dioxide 24.0 Anion Gap 11 BUN 10 Creatinine 0.6 Estim Creat Clear Calc 195.1 eGFR > 60 BUN/Creatinine Ratio 17 Glucose 99 Calculated Osmolality 282 Calcium 8.7 Corrected Calcium 9.2 Phosphorus 2.9 Magnesium 1.8 Total Bilirubin 0.5 AST 59 H ALT 77 H Alkaline Phosphatase 53 Total Protein 6.0 Albumin 3.4 L Globulin 2.6 Albumin/Globulin Ratio 1.3 KOJO Screen POSITIVE A KOJO Titer 1:160 H KOJO Titer 2 1:320 H KOJO Titer 3 TNP KOJO Pattern KOJO Pattern 2 NUCLEAR, NUCLEOLAR KOJO Pattern 3 TNP Double Strand DNA Ab <1 ABG Interpretation ABG results: 02/02/25 02/06/25 02/07/25 16:10 12:13 10:45 ABG pH 7.47 H ABG pCO2 24 L ABG pO2 96 ABG HCO3 17 L ABG O2 Saturation 98 ABG Base Excess -5 L VBG pH 7.55 7.47 VBG pCO2 25 L 21 L VBG pO2 113 H 71 H VBG Base Excess 1 -6 L Quality Measures Quality Measures VTE prophylaxis Assessment & Plan Assessment Current Active Medications: Generic Name Dose Route Start Last Admin Trade Name Freq PRN Reason Stop Dose Admin Acetaminophen 650 mg 02/14/25 08:22 Acetaminophen 325 Mg Tablet PO 03/04/25 15:11 Q6H PRN Fever >99.9 Atorvastatin Calcium 40 mg 02/14/25 08:22 Atorvastatin Calcium 20 Mg Tablet PO 03/13/25 08:59 HS ROBBIE Citric Acid/Sodium Citrate 30 ml 02/14/25 08:22 02/14/25 08:31 Citric Acid/Sodium Citr 15 Ml Udc (Bicitra) PO 03/10/25 08:59 30 ml BID ROBBIE Administration Desmopressin Acetate 2 mcg 02/12/25 11:45 02/14/25 08:45 Desmopressin Acetate 4 Mcg/Ml Vial IV 03/14/25 11:44 2 mcg QDAY ROBBIE Administration Dextrose 50 ml 02/02/25 17:28 02/07/25 06:11 Dextrose 50%-Water Inj 50 Ml Syringe IV 03/04/25 17:27 50 ml Q15MIN PRN Administration BG <50 OR BG <70 & pt unresponsive Fluticasone Propionate 2 spray 02/11/25 09:00 02/13/25 09:45 Fluticasone Javad [place] 0.05% 16 Gm Btl NASAL 03/13/25 08:59 2 sprays DAILY ROBBIE Administration Glucagon 1 mg 02/02/25 17:28 Glucagon Inj 1 Mg Vial IM Q15MIN PRN BG <70, and no IV access Fat Emulsion Intravenous 500 mls @ 32 mls/hr 02/09/25 18:00 02/12/25 17:45 Intralipid 20% Iv IV 03/11/25 17:59 32 mls/hr [id number] ROBBIE Administration Thiamine HCl 250 mg/ Sodium 102.5 mls @ 210 mls/hr 02/12/25 14:00 02/14/25 05:55 Chloride IV 03/14/25 13:59 210 mls/hr TID ROBBIE Administration Multivitamins/Minerals 10 ml/ 2,049 mls @ 120 mls/hr 02/13/25 15:25 02/13/25 18:36 Potassium Phosphate 30 mmol/ IV 02/15/25 01:34 120 mls/hr Magnesium Sulfate 2 gm/ .[id number] ROBBIE Administration Potassium Acetate 50 meq/ Amino Acids Magnesium Sulfate 2 gm in 50 mls @ 25 mls/hr 02/14/25 08:37 Magnesium Sulfate Ivpb IV 02/14/25 10:36 X1 ONE Insulin Human Lispro 0 unit 02/14/25 07:30 02/14/25 07:54 Insulin Lispro (Admelog) 1 Unit/0.01 Ml Unit SC 03/16/25 07:29 Not Given ACHS ROBBIE Protocol Montelukast Sodium 10 mg 02/14/25 08:23 02/14/25 08:29 Montelukast Sodium 10 Mg Tablet PO 03/15/25 09:29 10 mg DAILY ROBBIE Administration Ondansetron HCl 4 mg 02/02/25 15:17 02/13/25 21:17 Ondansetron Inj 2 Mg/Ml Inj 2 Ml IVP 03/04/25 15:16 4 mg Q6H PRN Administration NAUSEA OR VOMITING Protocol Pantoprazole Sodium 40 mg 02/09/25 09:00 02/14/25 08:32 Pantoprazole Inj 40 Mg Vial IVP 03/11/25 08:59 40 mg BID ROBBIE Administration (Ipratropium [place] 2 ea 02/11/25 09:00 02/14/25 09:01 42 Mcg (0.06 %) NASAL 03/13/25 08:59 Not Given [place],Non-Aerosol BID ROBBIE Potassium Phos/Sodium Phos 1 packet 02/05/25 21:00 02/07/25 09:15 [place],[facility] Mbdb 1 Packet (1.5 Gm) PO 03/07/25 20:59 Not Given On Hold: 02/07/25 10:47 BID ROBBIE Pyridoxine HCl 100 mg 02/11/25 10:15 02/14/25 08:31 Pyridoxine Inj 100 Mg/Ml Vial IV 03/13/25 10:14 100 mg QDAY ROBBIE Administration Plan 44-year-old male with metabolic encephalopathy secondary to thiamine deficiency and malnutrition, previously with multiple electrolyte derangements and possible partial central DI. Clinically improving. # Hypernatremia (resolved) Na 142 today. Plan: * Patient currently on TPN. Electrolytes have been addressed. 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 Plan: * Continue desmopressin daily. * Monitor serum and urine osmolality/output. * Reassess need for dose adjustment once urine studies return. # Non-anion gap metabolic acidosis Likely secondary to chloride load and NG losses. Improving. Plan: * Added bicarbonate in the TPN * Recheck CO2 daily * monitor acid-base status. # Hypophosphatemia (Mild) Phosphorus 2.9 after supplemenation, consistent with refeeding and poor intake. Plan: * Continue K-Phos supplementation. * Monitor daily until >3 # Hypomagnesemia (resolved) Mg 1.8, mild. Plan: * Continue IV magnesium repletion as needed. * Monitor levels daily. # LARISA (resolved) Cr 0.6, baseline, adequate urine output. Plan: * Continue to avoid nephrotoxins and IV contrast. * Maintain adequate hydration. # Possible UTI # Leukocytosis WBC 14.3, afebrile, clinically stable. Plan: * UA, urine culture, urine protein, urine electrolytes pending. * Await results before initiating antibiotics. * Continue close monitoring of trends. # Thiamine deficiency / Wernicke?s encephalopathy Lab confirmed low thiamine Mental status significantly improved with IV therapy. Plan: * Continue thiamine * Continue pyridoxine, B12 * Continue PPN support; monitor for refeeding complications. # Dysphagia / Ileus with NG suction NPO, unable to tolerate PO intake. GI following. ----- Plan discussed with attending physician Dr. Ciara Perez MD PGY-1 Internal Medicine Attending Provider Attestation/Addendum Patient seen and examined with resident physician Dr. Perez. Note reviewed, agree with findings and recommendations. Patient more alert and awake. Continue with thiamine. Needs aggressive physical therapy. NG tube was discontinued. Spoke to primary team to remove Guo catheter. Out of bed to chair.
[2025-02-14] MEDS: POTASSIUM CHLORIDE 10% 20 MEQ/15 ML UDC 40 MEQ PO (10:14)
[2025-02-14] MEDS: Magnesium Sulfate 2 GM Ivpb 2 GM/50 ML BAG IV (10:14)
--- NOTE | 2025-02-14 10:39 | ESPR_ITS ---
<Statement entered by Moo Sawyer MD - 02/14/25 20:10> Patient was seen and evaluated at bedside this morning. No acute overnight events. More alert and awake. A/O x2 (not to time). Patient was started on PO intake. DC cota catether. Has been tolerating well, plan to DC PPN tomorrow. Possible DC in next 24-48hrs. I have reviewed the note and agree with the resident's assessment & plan with exceptions as below. I have personally reviewed labs, imaging, home meds/prior records, examined the patient, formulated and discussed management plan with my attending Moo Sawyer PGY2 Disclaimer: Even though this this note was dictated by speech recognition and even though it was carefully revised there may still be minor errors in job site supervisor due to voice recognition software. Documentation for date of: 02/14/25 Subjective Subjective Interval history: No acute overnight events. Patient seen examined at bedside. Patient is alert and oriented x 2 today to person and time. Denies any bodily pain. Still unable to recall most recent memory, stating that he remembers taking elevator down to the lobby yesterday. States that he did not eat any breakfast when nursing recorded 75% eaten. Labs and vitals reviewed. Telemetry reviewed, sinus tachycardia 110-130. WBC 14.3 stable elevated. Potassium 3.4 repleted with 40mEq. Creatinine stable 0.6. Mg 1.8, repleted with 2 g IV. NG tube removed yesterday patient consumed 70% of breakfast. Plan to continue PPN today as patient only 25% of lunch, plan to discontinue PPN tomorrow. Continue desmopressin 2 mcg daily. Repeat UA negative for any infection. And Cota discontinued. PT worked with patient however unable to sit up on his own at this time. Exam Vital Signs Temp Pulse Resp BP Pulse Ox O2 Del Method O2 Flow Rate 97.6 F 113 H 15 122/98 H 97 Room Air 2 02/14/25 08:00 02/14/25 08:00 02/14/25 08:00 02/14/25 08:00 02/14/25 08:00 02/14/25 08:00 02/11/25 20:00 Narrative Exam GENERAL: AOx2 to person and time, following commands HEENT: mucous membranes dry, bilateral sclera anicteric, +dental caries and front L tooth absent CARDIOVASCULAR: regular rate and rhythm, S1/S2 present, no murmurs appreciated PULMONARY: clear to auscultation bilaterally, no rales/rhonchi/wheezes ABDOMINAL: soft, non-tender, non-distended, no rebound/guarding, bowel sounds present EXTREMITIES: no peripheral edema SKIN: warm and dry, intact, no wounds NEURO: CN II-XII grossly intact, 4/5 BLE strength, decreased sensation on dorsum of bilateral feet Objective Labs 02/14/25 04:49 02/14/25 04:49 Labs: Laboratory Results - last 24 hr 02/07/25 02/14/25 07:50 04:49 WBC 14.3 H RBC 3.79 L Hgb 11.7 L Hct 34.5 L MCV 91 MCH 30.9 MCHC 33.9 RDW Std Deviation 45.9 H Plt Count 325 D Neut % (Auto) 68 Lymph % (Auto) 24 [place] % (Auto) 6 Eos % (Auto) 1 Baso % (Auto) 0 Neut # (Auto) 9.8 H Lymph # (Auto) 3.4 [place] # (Auto) 0.9 H Eos # (Auto) 0.2 Baso # (Auto) 0.0 Immature Gran # (Auto) 0.11 H Absolute Nucleated RBC 0.00 Immature Gran % 1 H Nucleated RBC % 0 Sodium 142 Potassium 3.4 Chloride 107 Carbon Dioxide 24.0 Anion Gap 11 BUN 10 Creatinine 0.6 Estim Creat Clear Calc 195.1 eGFR > 60 BUN/Creatinine Ratio 17 Glucose 99 Calculated Osmolality 282 Calcium 8.7 Corrected Calcium 9.2 Phosphorus 2.9 Magnesium 1.8 Total Bilirubin 0.5 AST 59 H ALT 77 H Alkaline Phosphatase 53 Total Protein 6.0 Albumin 3.4 L Globulin 2.6 Albumin/Globulin Ratio 1.3 KOJO Screen POSITIVE A KOJO Titer 1:160 H KOJO Titer 2 1:320 H KOJO Titer 3 TNP KOJO Pattern KOJO Pattern 2 NUCLEAR, NUCLEOLAR KOJO Pattern 3 TNP Double Strand DNA Ab <1 ABG Interpretation ABG results: 02/02/25 02/06/25 02/07/25 16:10 12:13 10:45 ABG pH 7.47 H ABG pCO2 24 L ABG pO2 96 ABG HCO3 17 L ABG O2 Saturation 98 ABG Base Excess -5 L VBG pH 7.55 7.47 VBG pCO2 25 L 21 L VBG pO2 113 H 71 H VBG Base Excess 1 -6 L Quality Measures Quality Measures VTE prophylaxis Assessment & Plan Assessment Current Active Medications: Generic Name Dose Route Start Last Admin Trade Name Freq PRN Reason Stop Dose Admin Acetaminophen 650 mg 02/14/25 08:22 Acetaminophen 325 Mg Tablet PO 03/04/25 15:11 Q6H PRN Fever >99.9 Atorvastatin Calcium 40 mg 02/14/25 08:22 Atorvastatin Calcium 20 Mg Tablet PO 03/13/25 08:59 HS ROBBIE Citric Acid/Sodium Citrate 30 ml 02/14/25 08:22 02/14/25 08:31 Citric Acid/Sodium Citr 15 Ml Udc (Bicitra) PO 03/10/25 08:59 30 ml BID ROBBIE Administration Desmopressin Acetate 2 mcg 02/12/25 11:45 02/14/25 08:45 Desmopressin Acetate 4 Mcg/Ml Vial IV 03/14/25 11:44 2 mcg QDAY ROBBIE Administration Dextrose 50 ml 02/02/25 17:28 02/07/25 06:11 Dextrose 50%-Water Inj 50 Ml Syringe IV 03/04/25 17:27 50 ml Q15MIN PRN Administration BG <50 OR BG <70 & pt unresponsive Fluticasone Propionate 2 spray 02/11/25 09:00 02/13/25 09:45 Fluticasone Javad [place] 0.05% 16 Gm Btl NASAL 03/13/25 08:59 2 sprays DAILY ROBBIE Administration Glucagon 1 mg 02/02/25 17:28 Glucagon Inj 1 Mg Vial IM Q15MIN PRN BG <70, and no IV access Fat Emulsion Intravenous 500 mls @ 32 mls/hr 02/09/25 18:00 02/12/25 17:45 Intralipid 20% Iv IV 03/11/25 17:59 32 mls/hr [id number] ROBBIE Administration Thiamine HCl 250 mg/ Sodium 102.5 mls @ 210 mls/hr 02/12/25 14:00 02/14/25 05:55 Chloride IV 03/14/25 13:59 210 mls/hr TID ROBBIE Administration Multivitamins/Minerals 10 ml/ 2,049 mls @ 120 mls/hr 02/13/25 15:25 02/13/25 18:36 Potassium Phosphate 30 mmol/ IV 02/15/25 01:34 120 mls/hr Magnesium Sulfate 2 gm/ .Q17H5M ROBBIE Administration Potassium Acetate 50 meq/ Amino Acids Insulin Human Lispro 0 unit 02/14/25 07:30 02/14/25 07:54 Insulin Lispro (Admelog) 1 Unit/0.01 Ml Unit SC 03/16/25 07:29 Not Given ACHS ROBBIE Protocol Montelukast Sodium 10 mg 02/14/25 08:23 02/14/25 08:29 Montelukast Sodium 10 Mg Tablet PO 03/15/25 09:29 10 mg DAILY ROBBIE Administration Ondansetron HCl 4 mg 02/02/25 15:17 02/13/25 21:17 Ondansetron Inj 2 Mg/Ml Inj 2 Ml IVP 03/04/25 15:16 4 mg Q6H PRN Administration NAUSEA OR VOMITING Protocol Pantoprazole Sodium 40 mg 02/09/25 09:00 02/14/25 08:32 Pantoprazole Inj 40 Mg Vial IVP 03/11/25 08:59 40 mg BID ROBBIE Administration (Ipratropium [place] 2 ea 02/11/25 09:00 02/14/25 09:01 42 Mcg (0.06 %) NASAL 03/13/25 08:59 Not Given [place],Non-Aerosol BID [facility] Potassium Phos/Sodium Phos 1 packet 02/05/25 21:00 02/07/25 09:15 Naph,[facility] Mbdb 1 Packet (1.5 Gm) PO 03/07/25 20:59 Not Given On Hold: 02/07/25 10:47 BID ROBBIE Pyridoxine HCl 100 mg 02/11/25 10:15 02/14/25 08:31 Pyridoxine Inj 100 Mg/Ml Vial IV 03/13/25 10:14 100 mg QDAY ROBBIE Administration Plan Logan Dye 44M with pmhx significant for HTN, hx of gastric angiodysplasias s/p cautery 12/20/24, GERD, asthma, HLD, 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 #Acute metabolic encephalopathy 2/2 malnutrition/vitamin deficiency #Elevated lactic acid, resolved #Distended small bowel loops, likely possible ileus #Sinus tachycardia Patient presented with altered mental status, was unable to give a history but was able to deny or admit symptoms for a review of systems. Patient met severe sepsis criteria on admission with tachycardia and leukocytosis in addition to lactic acid of 10.8, which is evidence of end organ damage due to hypoperfusion, however currently no source of infection identified and further differentials as below. Spoke with family who reported younger brother of possible BALTAZAR virus at age 17. Admission VBG showed a pH of 7.55 and a pCO2 of 25. Ammonia mildly elevated 36. Syphillis cocci HIV and hep panel neg. UDS neg, salicylates and acetaminophen neg. UA 1+ protein, 2+ blood, 54 RBC, 24 WBC, LE+. CK wnl 50, beta hydroxy 0.6, 02/06 ABG 7.47/24/96/17. 02/07 VBG 7.47//71/95 Lactic acid on admission 10.8->6.2->3.8->2.6 but then uptrended 4.1->2.7->5.2->4.5->2.5->3.1 despite fluids, eventually downtrended to 2.5-> 2.0. CT abdomen pelvis was negative for hydronephrosis or ureteral calculi. CXR unremarkable. UCx and BCx, likely due to recent outpatient antibiotic course. 02/04 Echo showed EF estimated 60-65% The right ventricle is normal in size and systolic function. Normal aortic valve. Trace mitral and trace tricuspid regurgitation NO EVIDENCE OF VEGETATIONS. TDS due to patient lying supine and non- cooperative EEG was abnormal with diffuse slowing suggestive of diffuse encephalopathy of metabolic, degenerative or vascular origin. No epileptiform discharges noted. Brain MRI negative for acute hemorrhage, mass effect or midline shift, no acute infarct or microvascular white matter change. 02/06 Abd XR showed multiple air distended small bowel loops in the central abdomen, orogastric tube in stomach but stomach remains air distended 02/07 CTA with cont shows 4 mm lower pole nonobstructing right renal calculus, no hydronephrosis or ureteral calculi. Normal appendix. Mildly fluid distended small bowel loops, consider ileus, enteritis such as Crohn's disease. No findings diagnostic for ischemic small bowel but clinical correlation is advised. 02/07 CT orbit/face shows significant bilateral chronic mastoiditis, negative for acute mastoiditis, negative for otitis media or acquired cholesteatoma Ddx: Source of elevated lactic acid and/or encephalopathy possibly 2/2 thiamine deficiency however unclear why patient experieces such dysphagia and weakness. Continued sinus tachycardia likely 2/2 constipation and dehydration. Patient's mentation continued to worsened until 02/08, suddenly improved able to recognize family members and speak in full sentences, mentation continues to improve 02/10 EGD showed few nonbleeding erosions at GE junction, diffuse moderate inflammation in gastric antrum, normal duodenum. Vanc (02/02-02/08), Cefepime (02/02-02/09), metronidazole (02/07-02/09) 02/12 Abdominal gastrograffin study negaive for SBO KOJO 1:320, prolactin wnl, Thiamine resulted <6, thiamine 500 mg TID (02/09-02/11) Plan: - NG tube discontinued and start PO intake with small frequent meals. - Neurology consulted, recs appreciated - GI consulted, recs appreciated: B12 injection x1, pyridoxine IV QD - Continue 250 mg TID for 5 days (02/12- , then 100 mg QD - F/u [facility] antibodies, aceylcholine receptor antibodies - PT ordered, recommends SNF - Continue PPN at 100 cc/hr for nutrition, 3L/24h (02/09- , plan to discontinue tomorrow if patient's PO intake increases - General surgery consulted, recs appreciated #Electrolyte abnormalities #Hypernatremia, improved #Hypokalemia #Hyperchloremia #Hypophosphatemia #Hypomagnesemia #Hypocalcemia, resolved Patient presented with Na of 146, with gradual increase everyday despite D5W. Likely 2/2 poor PO intake 2/2 AMS. Cannot exclude neurological cause given patient is becoming more encephalopathic everyday. Ddx includes small bowel microischemia, RTA, HAGMA with respiratory compensation. Delta Delta calculated -8 with 02/07 labs signifying one of the three following: Mixed HAGMA and NAGMA. Mixed HAGMA with chronic respiratory alkalosis plys hyperchloremic acidosis. HAGMA with preexisting low anion gap state (hypoalbuminemia, paraproteinemia, etc). 10/ Ulytes sodium 145 protein 74 and potassium 40 and chloride 136. And repeat UA 1+ ketones no indication of UTI. Likely severely dehydrated due to poor p.o. intake for months. Free water decifit 6.2L. Patient has received cumulative 14L of fluids from 02/08 since admission with recorded output 1575 mL with Cota inserted on 02/06 however some of the fluids were NS. Plan: - Replete electrolytes as necessary - Nephrology consulted, recs appreciated: - Plan for bicitra BID and oral free water flushes once can tolerate oral as currently NG tube is in place, - Continue desmopressin 2 mcg QD iso sudden increase in urine output on 02/08 - CTM sodium - Fluids as above - Cota discontinued #Normocytic anemia #Leukocytosis Initially Hgb 18.4, however following fluids resolved. However, on 02/07, Hgb decreased to 11.8 and stayed 10-12s. 12/22 iron panel iron wnl 97, TIBC high 201, iron sat 48, unsat iron binding low 104, ferritin 199. Ddx: anemia possible 06/10 decreased production due to lack of nutrients from decreased PO intake vs active GIB given black NG suctions. Leukocytosis likely reactive as patient has received full dose of cefepime and elevation occurred following PPN administration. Plan: - CTM CBC #Transaminitis, improving #Coagulopathy, improving #Metabolic dysfunction-associated steatotic liver disease #Non-obstructing gallstones On admission, PT elevated 14.6 with INR 1.4, and AST ALT 80/217. AST/ALT initially peaked and downtrended. Not on hepatotoxic home medication and denies alcohol use. Denies RUQ pain. Abdominal ultrasound negative for cholelithiasis or cholecystitis, multiple gallstones, liver 14.5 cm fatty infiltration no focal liver lesions Ddx includes acidotic state with elevated lactic acid impairing coagulation with subsequent liver and tissue damage. Plan: - CTM LFTs - Avoid hepatotoxic medications #GERD Per history taken from the patient's mother Plan: - IV pantoprazole 40 mg BID #Hypercholesterolemia Per history taken from patient's mother. Patient takes atorvastatin 40 mg p.o. daily at home Plan: - Hold in the presence of transaminitis #Asthma Per patient history gathered from patient's mother. Patient montelukast 10 mg p.o. daily Plan: - No indication for treatment at this time as patient is asymptomatic #Hyperglycemia (Resolved) Fingerstick glucose 237 on arrival. Per patient's mother, he does not have a history of diabetes. 02/03/25 A1c 5.9 Plan: - SSI in place #Hyperthyroidism (Resolved) Thyroxine 13.6 repeat thyroxine 1.18. Consider acute phase thyrotoxicosis reaction over underlying thyroid condition #Bilateral chronic mastoiditis Patient presented with mild occasional L mastoid tenderness, and family complained of persistent sinus infection. CT orbit showed significant bilateral chronic mastoiditis. Plan: - Recommend to follow up outpatient for further evaluation and management Hospital management: Lines: PIV Diet: Dysphagia 2 Bowel: none GI prophylaxis: IV pantoprazole 40 mg BID DVT prophylaxis: SCDs Disposition: tele, pending dc of PPN as PO intake increases CODE STATUS: FULL CODE Plan of care discussed with attending Dr. Antoine, and PGY-2 Dr. Scott. Mercedes Yuen DO PGY-1 Internal Medicine Attending Provider Attestation/Addendum I have discussed and was present for the essential components of the history, physical examination, diagnosis, and treatment plan with the resident. I agree with the patient's care as documented by the resident and amended herein by me. Hugo Antoine DO. Although this document has been carefully reviewed, there may still be some phonetic and other typographical errors. These errors are purely grammatical due to imperfections in the software program and should not be construed in any way to compromise the substance of the patient's medical care during this visit. No acute events overnight, vital signs stable, patient, patient has had multiple bowel movements since yesterday, a manual disimpaction was performed yesterday evening. Today WBC still slightly elevated to 14, KUB demonstrating ileus, BMP largely unremarkable. NG tube was removed yesterday, the patient is eating today but not quite as much as we would like hence we will continue PPN and continue to advance oral diet as tolerated, hopefully we can DC the PPN tomorrow and possibly discharge the patient in 1 to 2 days. Continue to monitor closely while here.
[2025-02-14] MEDS: FLUTICASONE NAS SPRAY 0.05% 16 GM BTL 2 SPRAY NASAL (11:14)
[2025-02-14 12:00] VITALS: BP 121/90; PULSE 112; PULSE 119; RESP 18; TEMP 36.4; O2SAT 98
[2025-02-14] MEDS: MULTIVITAMIN IV ×2 (12:28→14:16)
[2025-02-14] MEDS: [UNRECOGNIZED DRUG - OTHER] IV ×2 (12:28→14:16)
[2025-02-14] MEDS: POTASSIUM PHOS IV ×2 (12:28→14:16)
[2025-02-14] MEDS: MAGNESIUM SULF IV ×2 (12:28→14:16)
[2025-02-14 12:43] LABS: Collection Type, Urine Catheter; Squamous Epithelial Cell,Urine 0 /hpf (0-5)
[2025-02-14 12:55] LABS: Bacteria,Urine Rare; Bilirubin,Urine Negative (Negative); Blood,Urine Negative (Negative); Clarity,Urine Clear (Clear/Hazy); Color,Urine Lt-Yellow (Lt Yel-Yel); Glucose, Urine Negative (Negative); Ketones,Urine Negative (Negative); Leukocyte Esterase,Urine Positive (Negative); Nitrite,Urine Negative (Negative); PH,Urine 5.5 (5.0-7.0); Protein,Urine Negative (Neg - Trace); RBC,Urine 1 /hpf (0-3); Specific Gravity,Urine 1.008 (1.001-1.035); Urobilinogen,Urine Negative mg/dL (0.0-1.0); WBC,Urine 6 /hpf (0-5)
[2025-02-14 13:06] LABS: Chloride,Urine Random < 20.0 mMol/L (55.0-125.0); Creatinine,Random Urine 39 mg/dL (30-125); Potassium,Urine Random 20 mMol/L (12-62); Protein Total, Random Urine 16 mg/dL (1-14); Sodium,Urine Random 32.3 mMol/L (20.0-110.0)
--- NOTE | 2025-02-14 15:15 | PD.RESPRO ---
Documentation for date of: 02/14/25 Subjective Subjective Interval history: Patient examined at bedside. He is able to answer questions simple questions but unable to recall events from before admission. AO to self only, [place] No reported bowel movements yet. BP stable, HR still tachy around 115. WBCs 14, glucose 99 this morning. He shoud continue working with PT with IV thiamine. Exam Vital Signs Temp Pulse Resp BP Pulse Ox O2 Del Method O2 Flow Rate 97.5 F 119 H 18 121/90 H 98 Room Air 2 02/14/25 12:00 02/14/25 12:00 02/14/25 12:00 02/14/25 12:00 02/14/25 12:00 02/14/25 12:00 02/11/25 20:00 Narrative Exam GENERAL APPEARANCE: Middle age male, Well-developed, obese built male in no acute distress. HEENT: Normocephalic, atraumatic, extraocular movements intact. Pupils: Equal reacting to light NECK: Supple, no JVD or bruits. CARDIOVASULAR: Heart: S1, S2 heard, regular without S3-S4 or murmur no rubs or gallops. LUNGS/CHEST: Clear to auscultation bilaterally. No rails, rhonchi, or wheezing. Normal inspection. ABDOMEN: Soft, nontender, distended. No pulsatile masses. No rebound, rigidity, or guarding. Normal inspection and palpation. EXTREMITIES: Normal inspection and palpation. No edema, clubbing or cyanosis. SKIN: Warm and dry without rashes. Normal inspection. MUSCULOSKELETAL: No cervical, thoracic, lumbar or midline bony tenderness. Normal inspection. NEURO: Alert, awake and oriented x1. Cranial nerves: II through XII grossly intact. Speech and language: Normal with no dysarthria or dysphasia. Slow responses. Motor system: Tone and bulk: Normal: Strength: 5 out of 5 in all 4 extremities; No pronator drift noted. Deep tendon reflexes: 2+ bilaterally symmetrical. Plantar reflex: Downgoing bilaterally. Sensory system: Intact to all modalities of sensation bilaterally. Coordination: Intact to [id number] and [id number] test bilaterally. No ataxia, no dysmetria, or dysdiadochokinesia noted. No intention tremors noted. Gait: Not tested. No signs of meningeal irritation noted. PSYCHIATRIC: Normal mood and affect. Objective Labs 02/16/25 06:28 02/16/25 06:28 Labs: Laboratory Results - last 24 hr 02/07/25 02/14/25 02/14/25 07:50 04:49 12:00 WBC 14.3 H RBC 3.79 L Hgb 11.7 L Hct 34.5 L MCV 91 MCH 30.9 MCHC 33.9 RDW Std Deviation 45.9 H Plt Count 325 D Neut % (Auto) 68 Lymph % (Auto) 24 [place] % (Auto) 6 Eos % (Auto) 1 Baso % (Auto) 0 Neut # (Auto) 9.8 H Lymph # (Auto) 3.4 [place] # (Auto) 0.9 H Eos # (Auto) 0.2 Baso # (Auto) 0.0 Immature Gran # (Auto) 0.11 H Absolute Nucleated RBC 0.00 Immature Gran % 1 H Nucleated RBC % 0 Sodium 142 Potassium 3.4 Chloride 107 Carbon Dioxide 24.0 Anion Gap 11 BUN 10 Creatinine 0.6 Estim Creat Clear Calc 195.1 eGFR > 60 BUN/Creatinine Ratio 17 Glucose 99 Calculated Osmolality 282 Calcium 8.7 Corrected Calcium 9.2 Phosphorus 2.9 Magnesium 1.8 Total Bilirubin 0.5 AST 59 H ALT 77 H Alkaline Phosphatase 53 Total Protein 6.0 Albumin 3.4 L Globulin 2.6 Albumin/Globulin Ratio 1.3 Ur Collection Type Catheter Urine Color Lt-Yellow Urine Clarity Clear Urine pH 5.5 Ur Specific [place] 1.008 Urine Protein Negative Urine Glucose (UA) Negative Urine Ketones Negative Urine Blood Negative Urine Nitrite Negative Urine Bilirubin Negative Urine Urobilinogen (Auto) Negative Ur Leukocyte Esterase Positive Urine RBC 1 Urine WBC 6 H Ur Squamous Epith Cells 0 Urine Bacteria Rare Ur Random Creatinine 39 U Random Total Protein 16 H Ur Random Sodium 32.3 Ur Random Potassium 20 Ur Random Chloride < 20.0 L KOJO Screen POSITIVE A KOJO Titer 1:160 H KOJO Titer 2 1:320 H KOJO Titer 3 TNP KOJO Pattern KOJO Pattern 2 NUCLEAR, NUCLEOLAR KOJO Pattern 3 TNP Double Strand DNA Ab <1 ABG Interpretation ABG results: 02/02/25 02/06/25 02/07/25 16:10 12:13 10:45 ABG pH 7.47 H ABG pCO2 24 L ABG pO2 96 ABG HCO3 17 L ABG O2 Saturation 98 ABG Base Excess -5 L VBG pH 7.55 7.47 VBG pCO2 25 L 21 L VBG pO2 113 H 71 H VBG Base Excess 1 -6 L Quality Measures Quality Measures VTE prophylaxis Assessment & Plan Assessment Current Active Medications: Generic Name Dose Route Start Last Admin Trade Name Freq PRN Reason Stop Dose Admin Acetaminophen 650 mg 02/14/25 08:22 Acetaminophen 325 Mg Tablet PO 03/04/25 15:11 Q6H PRN Fever >99.9 Atorvastatin Calcium 40 mg 02/14/25 08:22 Atorvastatin Calcium 20 Mg Tablet PO 03/13/25 08:59 HS ROBBIE Citric Acid/Sodium Citrate 30 ml 02/14/25 08:22 02/14/25 08:31 Citric Acid/Sodium Citr 15 Ml Udc (Bicitra) PO 03/10/25 08:59 30 ml BID ROBBIE Administration Desmopressin Acetate 2 mcg 02/12/25 11:45 02/14/25 08:45 Desmopressin Acetate 4 Mcg/Ml Vial IV 03/14/25 11:44 2 mcg QDAY ROBBIE Administration Dextrose 50 ml 02/02/25 17:28 02/07/25 06:11 Dextrose 50%-Water Inj 50 Ml Syringe IV 03/04/25 17:27 50 ml Q15MIN PRN Administration BG <50 OR BG <70 & pt unresponsive Fluticasone Propionate 2 spray 02/11/25 09:00 02/14/25 11:14 Fluticasone Javad [place] 0.05% 16 Gm Btl NASAL 03/13/25 08:59 2 sprays DAILY ROBBIE Administration Glucagon 1 mg 02/02/25 17:28 Glucagon Inj 1 Mg Vial IM Q15MIN PRN BG <70, and no IV access Fat Emulsion Intravenous 500 mls @ 32 mls/hr 02/09/25 18:00 02/12/25 17:45 Intralipid 20% Iv IV 03/11/25 17:59 32 mls/hr [id number] ROBBIE Administration Thiamine HCl 250 mg/ Sodium 102.5 mls @ 210 mls/hr 02/12/25 14:00 02/14/25 13:34 Chloride IV 03/14/25 13:59 210 mls/hr TID ROBBIE Administration Multivitamins/Minerals 10 ml/ 2,049 mls @ 100 mls/hr 02/14/25 14:00 02/14/25 14:16 Potassium Phosphate 30 mmol/ IV 02/15/25 08:28 100 mls/hr Magnesium Sulfate 2 gm/ .[id number] ROBBIE Administration Potassium Acetate 50 meq/ Amino Acids Insulin Human Lispro 0 unit 02/14/25 07:30 02/14/25 11:59 Insulin Lispro (Admelog) 1 Unit/0.01 Ml Unit SC 03/16/25 07:29 Not Given ACHS ROBBIE Protocol Montelukast Sodium 10 mg 02/14/25 08:23 02/14/25 08:29 Montelukast Sodium 10 Mg Tablet PO 03/15/25 09:29 10 mg DAILY ROBBIE Administration Ondansetron HCl 4 mg 02/02/25 15:17 02/13/25 21:17 Ondansetron Inj 2 Mg/Ml Inj 2 Ml IVP 03/04/25 15:16 4 mg Q6H PRN Administration NAUSEA OR VOMITING Protocol Pantoprazole Sodium 40 mg 02/09/25 09:00 02/14/25 08:32 Pantoprazole Inj 40 Mg Vial IVP 03/11/25 08:59 40 mg BID ROBBIE Administration (Ipratropium [place] 2 ea 02/11/25 09:00 02/14/25 09:01 42 Mcg (0.06 %) NASAL 03/13/25 08:59 Not Given [place],Non-Aerosol BID [facility] Potassium Phos/Sodium Phos 1 packet 02/05/25 21:00 02/07/25 09:15 [facility] Mbdb 1 Packet (1.5 Gm) PO 03/07/25 20:59 Not Given On Hold: 02/07/25 10:47 BID ROBBIE Pyridoxine HCl 100 mg 02/11/25 10:15 02/14/25 08:31 Pyridoxine Inj 100 Mg/Ml Vial IV 03/13/25 10:14 100 mg QDAY ROBBIE Administration Plan Summary: Logan Dye is a 44-year-old male with a past medical history of hypertension, GERD, allergies, asthma, hypercholesterolemia, 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 He was admitted for severe sepsis. #Acute encephalopathy-improving #Thiamine deficiency Significant improvement after oral supplementation. Thiamine levels low at <6. Patient presented with altered mental status, poor historian. anion gap of 25 and appeared to be compensating in a respiratory manner appropriate for metabolic acidosis, as VBG showed a pH of 7.55 and a pCO2 of 25 Patient denied dysuria, urine positive for 1+ protein, 2+ blood, 54 RBC, 24 white blood cells, leukocyte esterase positive CT abdomen pelvis was negative for hydronephrosis or ureteral calculi Urine and blood cultures negative, likely due to recent outpatient antibiotic course, Cocci serology negative EEG was nondiagnostic. No evidence of seizure-like activity. Brain MRI Negative for acute hemorrhage or acute infarct. Echo on 02/04 showed EF 60-65%, no evidence of vegetations -MG workup including acetylcholine receptors and [facility] antibodies are pending - Continue IV thiaimine 250 mg TID for 5 days, then 100 mg QD - Pyridoxine 100 mg daily -PT daily -primary care team planning to dc PPN and start oral feeds -mentation slowly improving, LP deferred #Hypernatremia #Transaminitis #Elevated PT #Hyperammonemia (Resolved) #Elevated INR (Resolved) #Hyperthyroidism (Resolved) #Hyperglycemia (Resolved) #GERD #Hypercholesterolemia #Asthma #Acute anion gap metabolic acidosis (Resolved) #Non obstructing gallstones #distended small bowel loops Primary care team to manage above conditions and ongoing care needs. The patient's management plan was discussed with my attending physician Dr. Broderick. Amanda Turner, PGY-2 Attending Provider Attestation/Addendum I have seen and examined the patient at the bedside and I agreed with resident's findings, assessment and plan of care. He continues to have abdominal discomfort from not having bowel movement, and generalized weakness. Continue with IV thiamine and follow him closely.
[2025-02-14 16:00] VITALS: BP 118/91; PULSE 120; PULSE 131; RESP 13; TEMP 36.6; O2SAT 97
[2025-02-14] MEDS: FAT EMULSIONS 20% IV 500 ML 32 ML IV (18:00)
--- NOTE | 2025-02-14 19:43 | PD.IMPROG ---
Documentation for date of: 02/14/25 Subjective Subjective Interval history: Patient evaluated. he ate 70% of his breakfast no nausea vomiting still confused but better Exam Vital Signs Temp Pulse Resp BP Pulse Ox O2 Del Method O2 Flow Rate 97.9 F 131 H 13 118/91 H 97 Room Air 2 02/14/25 16:00 02/14/25 16:00 02/14/25 16:00 02/14/25 16:00 02/14/25 16:00 02/14/25 16:00 02/11/25 20:00 Objective Labs 02/14/25 04:49 02/14/25 04:49 Labs: Laboratory Results - last 24 hr 02/07/25 02/14/25 02/14/25 07:50 04:49 12:00 WBC 14.3 H RBC 3.79 L Hgb 11.7 L Hct 34.5 L MCV 91 MCH 30.9 MCHC 33.9 RDW Std Deviation 45.9 H Plt Count 325 D Neut % (Auto) 68 Lymph % (Auto) 24 [place] % (Auto) 6 Eos % (Auto) 1 Baso % (Auto) 0 Neut # (Auto) 9.8 H Lymph # (Auto) 3.4 [place] # (Auto) 0.9 H Eos # (Auto) 0.2 Baso # (Auto) 0.0 Immature Gran # (Auto) 0.11 H Absolute Nucleated RBC 0.00 Immature Gran % 1 H Nucleated RBC % 0 Sodium 142 Potassium 3.4 Chloride 107 Carbon Dioxide 24.0 Anion Gap 11 BUN 10 Creatinine 0.6 Estim Creat Clear Calc 195.1 eGFR > 60 BUN/Creatinine Ratio 17 Glucose 99 Calculated Osmolality 282 Calcium 8.7 Corrected Calcium 9.2 Phosphorus 2.9 Magnesium 1.8 Total Bilirubin 0.5 AST 59 H ALT 77 H Alkaline Phosphatase 53 Total Protein 6.0 Albumin 3.4 L Globulin 2.6 Albumin/Globulin Ratio 1.3 Ur Collection Type Catheter Urine Color Lt-Yellow Urine Clarity Clear Urine pH 5.5 Ur Specific [place] 1.008 Urine Protein Negative Urine Glucose (UA) Negative Urine Ketones Negative Urine Blood Negative Urine Nitrite Negative Urine Bilirubin Negative Urine Urobilinogen (Auto) Negative Ur Leukocyte Esterase Positive Urine RBC 1 Urine WBC 6 H Ur Squamous Epith Cells 0 Urine Bacteria Rare Ur Random Creatinine 39 U Random Total Protein 16 H Ur Random Sodium 32.3 Ur Random Potassium 20 Ur Random Chloride < 20.0 L KOJO Screen POSITIVE A KOJO Titer 1:160 H KOJO Titer 2 1:320 H KOJO Titer 3 TNP KOJO Pattern KOJO Pattern 2 NUCLEAR, NUCLEOLAR KOJO Pattern 3 TNP Double Strand DNA Ab <1 Impressions Impression: No nausea vomiting Tolerating diet Stable hemoglobin hematocrit Continue to monitor ABG Interpretation ABG results: 02/02/25 02/06/25 02/07/25 16:10 12:13 10:45 ABG pH 7.47 H ABG pCO2 24 L ABG pO2 96 ABG HCO3 17 L ABG O2 Saturation 98 ABG Base Excess -5 L VBG pH 7.55 7.47 VBG pCO2 25 L 21 L VBG pO2 113 H 71 H VBG Base Excess 1 -6 L Assessment & Plan Time Spent With Patient Time: Total time spent is greater than 50% in coordination of care (as documented) at patient's floor/unit and/or counseling patient:
[2025-02-14 20:00] VITALS: BP 114/98; PULSE 128; PULSE 130; RESP 15; TEMP 35.9; O2SAT 97
[2025-02-14] MEDS: ATORVASTATIN CALCIUM 20 MG TABLET 40 MG PO (22:09)
[2025-02-15] VITALS: BP 141/88; PULSE 122; PULSE 126; RESP 17; TEMP 36; O2SAT 95
[2025-02-15 04:00] VITALS: BP 142/90; PULSE 106; PULSE 112; RESP 19; TEMP 36.1; O2SAT 96
[2025-02-15] MEDS: THIAMINE INJ 250 MG in SODIUM CHLORIDE 0.9% 100 ML 210 MG IV (05:46)
[2025-02-15 06:00] VITALS: BMI 44.6
[2025-02-15 06:24] LABS: Basophils # (Auto) 0.1 Thou/mm3 (0.0-0.2); Basophils % (Auto) 0 % (0-2.5); Eosinophils # (Auto) 0.3 Thou/mm3 (0.0-0.5); Eosinophils % (Auto) 2 % (0-10); Lymphocytes % (Auto) 31 % (10-50); Mean Corpuscular HGB Conc 34.2 g/dl (31.0-37.0); Monocytes # (Auto) 0.9 Thou/mm3 (0.0-0.8); Nucleated Red Blood Cell # 0.00 Thou/mm3 (0.00-0.00); Nucleated Red Blood Cell % 0 /100 WBC (0)
[2025-02-15 06:49] LABS: Hematocrit 33.3 % (41.0-53.0); Hemoglobin 11.4 g/dL (13.5-16.0); Immature Granulocytes Auto 0.06 Thou/mm3 (0.00-0.00); Lymphocytes # (Auto) 4.1 Thou/mm3 (1.0-4.8); Mean Corpuscular Hemoglobin 31.2 pg (25.0-35.0); Mean Corpuscular Volume 91 fL (80-100); Monocytes % (Auto) 6 % (0-12); Neutrophils # (Auto) 8.0 Thou/mm3 (1.8-7.7); Neutrophils % (Auto) 60 % (37-80); Platelet Count 462 Thou/mm3 (140-440); RDW Standard Deviation 48.2 fL (35.1-43.9); Red Blood Count 3.65 Miln/mm3 (4.50-5.90); White Blood Count 13.4 Thou/mm3 (3.8-10.6)
[2025-02-15 06:51] LABS: Alanine Aminotransferase 65 U/L (10-49); Albumin, Serum 3.0 gm/dL (3.5-5.0); Albumin/Globulin Ratio 1.2 (1.2-2.2); Alkaline Phosphatase 51 U/L (46-116); Anion Gap 10 (7-16); Aspartate Amino Transferase 59 U/L (0-34); BUN/Creatinine Ratio 14 Ratio (12-20); Bilirubin,Total 0.3 mg/dL (0.3-1.2); Blood Urea Nitrogen 10 mg/dL (9-23); Calcium 8.3 mg/dL (8.3-10.6); Calcium (Corrected) 9.1 mg/dL (8.5-10.1); Carbon Dioxide 23.6 mMol/L (20.0-31.0); Chloride 106 mMol/L (98-107); Creatinine (Component) 0.7 mg/dL (0.6-1.3); Estimated Creatinine Clearance 167.3 mL/min (>60); Globulin 2.5 gm/dL (2.3-3.5); Glucose 95 mg/dL (74-106); Magnesium 2.2 mg/dL (1.6-2.6); Osmolality,Calculated 278 (275-295); Potassium 4.4 mMol/L (3.4-5.1); Sodium 140 mMol/L (136-145); Total Protein 5.5 gm/dL (5.7-8.2); eGFR > 60 See Note
[2025-02-15 08:00] VITALS: BP 129/91; PULSE 109; PULSE 121; RESP 20; TEMP 36.4; O2SAT 96
[2025-02-15 09:17] LABS: Phosphorous 3.1 mg/dL (2.4-5.1)
[2025-02-15] MEDS: MONTELUKAST SODIUM 10 MG TABLET PO (09:43)
[2025-02-15] MEDS: DESMOPRESSIN ACETATE 4 MCG/ML VIAL 2 MCG IV (10:14)
[2025-02-15] MEDS: MAGNESIUM SULF IV (10:15)
[2025-02-15] MEDS: MULTIVITAMIN IV (10:15)
[2025-02-15] MEDS: POTASSIUM PHOS IV (10:15)
[2025-02-15] MEDS: [UNRECOGNIZED DRUG - OTHER] IV (10:15)
[2025-02-15] MEDS: FLUTICASONE NAS SPRAY 0.05% 16 GM BTL 2 SPRAY NASAL (10:31)
[2025-02-15] MEDS: CITRIC ACID/SODIUM CITR 15 ML UDC (BICITRA) 30 ML PO (10:31)
[2025-02-15 12:00] VITALS: BP 101/68; PULSE 122; PULSE 123; RESP 14; TEMP 36.3; O2SAT 99
--- NOTE | 2025-02-15 12:03 | ESPR_ITS ---
<Statement entered by Moo Sawyer MD - 02/15/25 14:53> Patient was seen and evaluated at bedside this morning. No acute overnight events. Tolerating p.o. intake well. Patient's IV infiltrated therefore he is not currently on PPN, will follow-up on patient's breakfast and lunch to see if patient eats at least 75% of the meals and consider possible discharge. Will switch IV meds to PO as IV infiltrated. I have reviewed the note and agree with the resident's assessment & plan with exceptions as below. I have personally reviewed labs, imaging, home meds/prior records, examined the patient, formulated and discussed management plan with my attending Moo Sawyer PGY2 Disclaimer: Even though this this note was dictated by speech recognition and even though it was carefully revised there may still be minor errors in wood boatbuilder apprentice due to voice recognition software. Documentation for date of: 02/15/25 Subjective Subjective Interval history: No acute overnight events. Patient seen examined at bedside. Patient is alert and oriented x 3 today to person and time with clear responses. Still not oriented to place. Patient denies any pain, weakness or dysphagia. Denies any bowel movement however chart recorded 2-3 bowel movements. Vitals and labs reviewed. Telemetry reviewed, persistent sinus tachycardia 110- 130. WBC 13.4, hemoglobin stable 11.4, sodium 142, potassium 4.4, creatinine 0.7, AST/ALT 59/65. Albumin 3.4. Continue with small meals as tolerated. Continue PPN for now, plan to discontinue tomorrow as patient p.o. intake increases. Continue thiamine 2 to 50 mg 3 times daily for today is planned for tomorrow. All IVs blew per nursing, 1 reestablished on TPN running still. All IV meds transition to p.o. such as pantoprazole, thiamine, pyridoxine and desmopressin to subcutaneous. Continue bicitra BID. Miscellaneous order placed for assisted eating during meals. Percent of consumed at lunch reported at 0% however the lunchtime patient ate 80% of meal. Exam Vital Signs Temp Pulse Resp BP Pulse Ox O2 Del Method O2 Flow Rate 97.5 F 109 H 20 129/91 H 96 Room Air 2 02/15/25 08:00 02/15/25 08:00 02/15/25 08:00 02/15/25 08:00 02/15/25 08:00 02/15/25 08:00 02/11/25 20:00 Narrative Exam GENERAL: AOx2 to person and time, following commands HEENT: mucous membranes moist, bilateral sclera anicteric, +dental caries and front L tooth absent CARDIOVASCULAR: regular rate and rhythm, S1/S2 present, no murmurs appreciated PULMONARY: clear to auscultation bilaterally, no rales/rhonchi/wheezes ABDOMINAL: soft, non-tender, non-distended, no rebound/guarding, bowel sounds present EXTREMITIES: no peripheral edema SKIN: warm and dry, intact, no wounds NEURO: CN II-XII grossly intact, 4/5 BLE strength, decreased sensation on dorsum of bilateral feet Objective Labs 02/16/25 06:28 02/16/25 06:28 Labs: Laboratory Results - last 24 hr 02/14/25 02/15/25 12:00 05:10 WBC 13.4 H RBC 3.65 L Hgb 11.4 L Hct 33.3 L MCV 91 MCH 31.2 MCHC 34.2 RDW Std Deviation 48.2 H Plt Count 462 H D Neut % (Auto) 60 Lymph % (Auto) 31 [place] % (Auto) 6 Eos % (Auto) 2 Baso % (Auto) 0 Neut # (Auto) 8.0 H Lymph # (Auto) 4.1 [place] # (Auto) 0.9 H Eos # (Auto) 0.3 Baso # (Auto) 0.1 Immature Gran # (Auto) 0.06 H Absolute Nucleated RBC 0.00 Immature Gran % 0 Nucleated RBC % 0 Sodium 140 Potassium 4.4 D Chloride 106 Carbon Dioxide 23.6 Anion Gap 10 BUN 10 Creatinine 0.7 Estim Creat Clear Calc 167.3 eGFR > 60 BUN/Creatinine Ratio 14 Glucose 95 Calculated Osmolality 278 Calcium 8.3 Corrected Calcium 9.1 Phosphorus 3.1 Magnesium 2.2 Total Bilirubin 0.3 AST 59 H ALT 65 H Alkaline Phosphatase 51 Total Protein 5.5 L Albumin 3.0 L Globulin 2.5 Albumin/Globulin Ratio 1.2 Ur Collection Type Catheter Urine Color Lt-Yellow Urine Clarity Clear Urine pH 5.5 Ur Specific [place] 1.008 Urine Protein Negative Urine Glucose (UA) Negative Urine Ketones Negative Urine Blood Negative Urine Nitrite Negative Urine Bilirubin Negative Urine Urobilinogen (Auto) Negative Ur Leukocyte Esterase Positive Urine RBC 1 Urine WBC 6 H Ur Squamous Epith Cells 0 Urine Bacteria Rare Ur Random Creatinine 39 U Random Total Protein 16 H Ur Random Sodium 32.3 Ur Random Potassium 20 Ur Random Chloride < 20.0 L ABG Interpretation ABG results: 02/02/25 02/06/25 02/07/25 16:10 12:13 10:45 ABG pH 7.47 H ABG pCO2 24 L ABG pO2 96 ABG HCO3 17 L ABG O2 Saturation 98 ABG Base Excess -5 L VBG pH 7.55 7.47 VBG pCO2 25 L 21 L VBG pO2 113 H 71 H VBG Base Excess 1 -6 L Quality Measures Quality Measures VTE prophylaxis Assessment & Plan Assessment Current Active Medications: Generic Name Dose Route Start Last Admin Trade Name Freq PRN Reason Stop Dose Admin Acetaminophen 650 mg 02/14/25 08:22 Acetaminophen 325 Mg Tablet PO 03/04/25 15:11 Q6H PRN Fever >99.9 Atorvastatin Calcium 40 mg 02/14/25 08:22 02/14/25 22:09 Atorvastatin Calcium 20 Mg Tablet PO 03/13/25 08:59 40 mg HS ROBBIE Administration Dextrose 50 ml 02/02/25 17:28 02/07/25 06:11 Dextrose 50%-Water Inj 50 Ml Syringe IV 03/04/25 17:27 50 ml Q15MIN PRN Administration BG <50 OR BG <70 & pt unresponsive Fluticasone Propionate 2 spray 02/11/25 09:00 02/15/25 10:31 Fluticasone Javad [place] 0.05% 16 Gm Btl NASAL 03/13/25 08:59 1 sprays DAILY ROBBIE Administration Glucagon 1 mg 02/02/25 17:28 Glucagon Inj 1 Mg Vial IM Q15MIN PRN BG <70, and no IV access Fat Emulsion Intravenous 500 mls @ 32 mls/hr 02/09/25 18:00 02/14/25 18:00 Intralipid 20% Iv IV 03/11/25 17:59 32 mls/hr [id number] ROBBIE Administration Multivitamins/Minerals 10 ml/ 2,054 mls @ 100 mls/hr 02/15/25 08:00 02/15/25 10:15 Potassium Phosphate 30 mmol/ IV 02/16/25 04:32 100 mls/hr Magnesium Sulfate 2 gm/ .[id number] ROBBIE Administration Potassium Acetate 60 meq/ Amino Acids Insulin Human Lispro 0 unit 02/14/25 07:30 02/15/25 11:24 Insulin Lispro (Admelog) 1 Unit/0.01 Ml Unit SC 03/16/25 07:29 Not Given ACHS [facility] Protocol Montelukast Sodium 10 mg 02/14/25 08:23 02/15/25 09:43 Montelukast Sodium 10 Mg Tablet PO 03/15/25 09:29 10 mg DAILY ROBBIE Administration Ondansetron HCl 4 mg 02/02/25 15:17 02/13/25 21:17 Ondansetron Inj 2 Mg/Ml Inj 2 Ml IVP 03/04/25 15:16 4 mg Q6H PRN Administration NAUSEA OR VOMITING Protocol Pantoprazole Sodium 40 mg 02/15/25 21:00 Pantoprazole 40 Mg Tablet PO 03/17/25 20:59 BID [facility] (Ipratropium [place] 2 ea 02/11/25 09:00 02/15/25 10:12 42 Mcg (0.06 %) NASAL 03/13/25 08:59 Not Given [place],Non-Aerosol BID [facility] Potassium Phos/Sodium Phos 1 packet 02/05/25 21:00 02/07/25 09:15 [place],[facility] Mbdb 1 Packet (1.5 Gm) PO 03/07/25 20:59 Not Given BID [facility] Pyridoxine HCl 100 mg 02/16/25 09:00 Pyridoxine 50 Mg Tablet PO 03/18/25 08:59 QDAY [facility] Thiamine HCl 250 mg 02/15/25 14:00 Thiamine 100 Mg Tablet PO 03/17/25 13:59 TID [facility] Plan Logan Sanderson 44M with pmhx significant for HTN, hx of gastric angiodysplasias s/p cautery 12/20/24, GERD, asthma, HLD, 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 #Acute metabolic encephalopathy 2/2 malnutrition/vitamin deficiency #Elevated lactic acid, resolved #Distended small bowel loops, likely possible ileus #Sinus tachycardia Patient presented with altered mental status, was unable to give a history but was able to deny or admit symptoms for a review of systems. Patient met severe sepsis criteria on admission with tachycardia and leukocytosis in addition to lactic acid of 10.8, which is evidence of end organ damage due to hypoperfusion, however currently no source of infection identified and further differentials as below. Spoke with family who reported younger brother of possible BALTAZAR virus at age 17. Admission VBG showed a pH of 7.55 and a pCO2 of 25. Ammonia mildly elevated 36. Syphillis cocci HIV and hep panel neg. UDS neg, salicylates and acetaminophen neg. UA 1+ protein, 2+ blood, 54 RBC, 24 WBC, LE+. CK wnl 50, beta hydroxy 0.6, 02/06 ABG 7.47//96/17. 02/07 VBG 7.47///95 Lactic acid on admission 10.8->6.2->3.8->2.6 but then uptrended 4.1->2.7->5.2->4.5->2.5->3.1 despite fluids, eventually downtrended to 2.5-> 2.0. CT abdomen pelvis was negative for hydronephrosis or ureteral calculi. CXR unremarkable. UCx and BCx, likely due to recent outpatient antibiotic course. 02/04 Echo showed EF estimated 60-65% The right ventricle is normal in size and systolic function. Normal aortic valve. Trace mitral and trace tricuspid regurgitation NO EVIDENCE OF VEGETATIONS. TDS due to patient lying supine and non- cooperative EEG was abnormal with diffuse slowing suggestive of diffuse encephalopathy of metabolic, degenerative or vascular origin. No epileptiform discharges noted. Brain MRI negative for acute hemorrhage, mass effect or midline shift, no acute infarct or microvascular white matter change. 02/06 Abd XR showed multiple air distended small bowel loops in the central abdomen, orogastric tube in stomach but stomach remains air distended 02/07 CTA with cont shows 4 mm lower pole nonobstructing right renal calculus, no hydronephrosis or ureteral calculi. Normal appendix. Mildly fluid distended small bowel loops, consider ileus, enteritis such as Crohn's disease. No findings diagnostic for ischemic small bowel but clinical correlation is advised. 02/07 CT orbit/face shows significant bilateral chronic mastoiditis, negative for acute mastoiditis, negative for otitis media or acquired cholesteatoma Ddx: Source of elevated lactic acid and/or encephalopathy possibly 2/2 thiamine deficiency however unclear why patient experieces such dysphagia and weakness. Continued sinus tachycardia likely 2/2 constipation and dehydration. Patient's mentation continued to worsened until 02/08, suddenly improved able to recognize family members and speak in full sentences, mentation continues to improve 02/10 EGD showed few nonbleeding erosions at GE junction, diffuse moderate inflammation in gastric antrum, normal duodenum. Vanc (02/02-02/08), Cefepime (02/02-02/09), metronidazole (02/07-02/09) 02/12 Abdominal gastrograffin study negaive for SBO KOJO 1:320, prolactin wnl, Thiamine resulted <6, thiamine 500 mg TID (02/09-02/11) Plan: - Continue PO intake with small frequent meals and transition IV meds to PO due to IV access limitation - Neurology consulted, recs appreciated: continue bicitra and desmopressin - GI consulted, recs appreciated: B12 injection x1, pyridoxine PO QD - Continue thiamine PO 250 mg TID for 5 days (02/12- , then 100 mg QD - F/u [facility] antibodies, aceylcholine receptor antibodies - PT ordered, recommends SNF - Continue PPN at 100 cc/hr for nutrition, 3L/24h (02/09- , plan to discontinue tomorrow if patient's PO intake increases - General surgery consulted, recs appreciated - Start assisted feeds during meal times as patient's intake is increasing #Electrolyte abnormalities #Hypernatremia, improved #Hypokalemia #Hyperchloremia #Hypophosphatemia #Hypomagnesemia #Hypocalcemia, resolved Patient presented with Na of 146, with gradual increase everyday despite D5W. Likely 2/2 poor PO intake 2/2 AMS. Cannot exclude neurological cause given patient is becoming more encephalopathic everyday. Ddx includes small bowel microischemia, RTA, HAGMA with respiratory compensation. Delta Delta calculated -8 with 10/ labs signifying one of the three following: Mixed HAGMA and NAGMA. Mixed HAGMA with chronic respiratory alkalosis plys hyperchloremic acidosis. HAGMA with preexisting low anion gap state (hypoalbuminemia, paraproteinemia, etc). 10/3 Ulytes sodium 145 protein 74 and potassium 40 and chloride 136. And repeat UA 1+ ketones no indication of UTI. Likely severely dehydrated due to poor p.o. intake for months. Free water decifit 6.2L. Patient has received cumulative 14L of fluids from 02/08 since admission with recorded output 1575 mL with Guo inserted on 02/06 however some of the fluids were NS. Plan: - Replete electrolytes as necessary - Nephrology consulted, recs appreciated: bicitra BID - Continue SC desmopressin 2 mcg QD iso sudden increase in urine output on 02/08 - CTM sodium - Guo discontinued #Normocytic anemia #Leukocytosis Initially Hgb 18.4, however following fluids resolved. However, on 02/07, Hgb decreased to 11.8 and stayed 10-12s. 12/22 iron panel iron wnl 97, TIBC high 201, iron sat 48, unsat iron binding low 104, ferritin 199. Ddx: anemia possible / decreased production due to lack of nutrients from decreased PO intake vs active GIB given black NG suctions. Leukocytosis likely reactive as patient has received full dose of cefepime and elevation occurred following PPN administration. Plan: - CTM CBC #Transaminitis, improving #Coagulopathy, improving #Metabolic dysfunction-associated steatotic liver disease #Non-obstructing gallstones On admission, PT elevated 14.6 with INR 1.4, and AST ALT 80/217. AST/ALT initially peaked and downtrended. Not on hepatotoxic home medication and denies alcohol use. Denies RUQ pain. Abdominal ultrasound negative for cholelithiasis or cholecystitis, multiple gallstones, liver 14.5 cm fatty infiltration no focal liver lesions Ddx includes acidotic state with elevated lactic acid impairing coagulation with subsequent liver and tissue damage. Plan: - CTM LFTs - Avoid hepatotoxic medications #GERD Per history taken from the patient's mother Plan: - PO pantoprazole 40 mg BID #Hypercholesterolemia Per history taken from patient's mother. Patient takes atorvastatin 40 mg p.o. daily at home Plan: - Hold in the presence of transaminitis #Asthma Per patient history gathered from patient's mother. Patient montelukast 10 mg p.o. daily Plan: - No indication for treatment at this time as patient is asymptomatic #Hyperglycemia (Resolved) Fingerstick glucose 237 on arrival. Per patient's mother, he does not have a history of diabetes. 02/03/25 A1c 5.9 Plan: - SSI in place #Hyperthyroidism (Resolved) Thyroxine 13.6 repeat thyroxine 1.18. Consider acute phase thyrotoxicosis reaction over underlying thyroid condition #Bilateral chronic mastoiditis Patient presented with mild occasional L mastoid tenderness, and family complained of persistent sinus infection. CT orbit showed significant bilateral chronic mastoiditis. Plan: - Recommend to follow up outpatient for further evaluation and management Hospital management: Lines: PIV Diet: Dysphagia 2 Bowel: none GI prophylaxis: IV pantoprazole 40 mg BID DVT prophylaxis: SCDs Disposition: tele, pending dc of PPN as PO intake increases CODE STATUS: FULL CODE Plan of care discussed with attending Dr. Antoine, and PGY-2 Dr. Scott. Mercedes Yuen DO PGY-1 Internal Medicine Attending Provider Attestation/Addendum I have discussed and was present for the essential components of the history, physical examination, diagnosis, and treatment plan with the resident. I agree with the patient's care as documented by the resident and amended herein by me. Hugo Antoine DO. Although this document has been carefully reviewed, there may still be some phonetic and other typographical errors. These errors are purely grammatical due to imperfections in the software program and should not be construed in any way to compromise the substance of the patient's medical care during this visit.
[2025-02-15] MEDS: THIAMINE 100 MG TABLET 250 MG PO ×2 (13:56→21:05)
--- NOTE | 2025-02-15 14:43 | ESPR_ITS ---
Documentation for date of: 02/15/25 Subjective Subjective Interval history: Mr Dye is a 44-year-old gentleman with a past medical history of hypertension, dyslipidemia, reflux, asthma, epilepsy (took phenobarbital 10 years ago), allergies was brought to the emergency department with altered mental status. Patient was altered in the ER and unable to give any history. As per the chart the patient was tachycardic tand was found to have a lactic acid of 10.8 with a white count of 24. Patient was admitted with a diagnosis of sepsis of unknown source. In the last 3 months he has been declining significantly. Last admission to the hospital was December 2024 for dysphagia and had a dilation by Dr. Campos. Patient continues to have symptoms of dysphagia. During this admission he was noted to have 40 pound weight loss and significant altered mental status. Patient was seen by neurology-CT brain negative. UA did not show any activity. LP was supposed to be done yesterday but unable to. Patient was seen by GI. could not get significant history as patient seems to be very sleepy. He has extensive workup done during this admission-CT abdomen showed nonobstructing renal calculi with no hydronephrosis. Chest x-ray negative. Abdominal ultrasound showed gallstones with no cholecystitis. Also has fatty liver. Echocardiogram showed ejection fraction 60%. EEG no seizure activity. MRI brain negative. CTA abdomen showed no ischemia. Lumbar puncture attempted but unsuccessful. Patient going for repeat LP possibly today with IR. 02/07/2025 patient currently seen in telemetry. Labs showed blood pressure 121/89, heart rate 116. Sleepy. White count 7.3, hemoglobin 11.8, platelets 154. Coags negative. ABG yesterday showed pH 7.47, pCO2 74, HCO3 17. carboxyhemoglobin 4.4. Sodium 153, potassium 3.4, chloride 125, bicarbonate 15.6, creatinine 0.6, lactic acid 4.5, calcium 7.7, phosphorus 1.7, magnesium 1.5, LFTs elevated, albumin 2.8 urinalysis and urine lites pending is nonreactive cocci negative hep panel negative HIV negative 02/08/2025 patient currently seen in telemetry today still with NG tube suction. More alert and awake and able to converse with me today. Started p.o. Bicitra. Urinalysis showed pH of 5.0, specific gravity 1032. Urine lytes positive for anion gap. 02/09/2025: Patient currently seen in telemetry. Mentation fluctuates; today more lethargic and minimally responsive compared to yesterday when he was conversant. Does not follow commands consistently. NG tube remains in place on low intermittent suction. No bowel movement reported overnight. Guo in place with adequate urine output. Blood pressure 93/71, heart rate 90. Sodium 148, chloride 119, bicarbonate 20, creatinine 0.7, phosphorus 2.0, magnesium 1.9, calcium 8.9. On D5W infusion and desmopressin. K-Phos started for hypophosphatemia. Lactic acid remains downtrended. Continues on cefepime and Flagyl. 02/11/2025: Patient seen in telemetry. Mentation improving; awake, talkative, follows commands. Moves all extremities. Denies nausea, vomiting, or pain. NG tube remains in place with ongoing dark output. Urine output stable. On PPN and D5W 120 mL/hr with desmopressin 2 mcg daily. Continues on high-dose thiamine 500 mg IV BID after confirmed deficiency. No fevers. Mild tachycardia persists. Labs today: WBC 14.3, Hgb 12.6, Na 144, K 3.6, Cl 110, Ca 9.4, Phos 1.9, Mg 1.7, Cr 0.5. 02/12/2025: Patient seen in telemetry. Mentation remains improved. Patient is awake, talkative, and responsive. Moves all extremities spontaneously. Denies nausea, vomiting, or pain. No bowel movement yet. NG tube remains in place though no longer draining dark output. Urine output stable and adequate. Continues on PPN and D5W. Desmopressin dose fell out overnight ? will resume today. Thiamine now transitioned to 250 mg IV BID per protocol. Afebrile, hemodynamically stable aside from mild tachycardia. Latest vitals: BP 127/90, HR 105. Labs: WBC 13.8, Hgb 12.0, Plt 178, Na 146, K 4.1, Cl 113, Cr 0.6, Ca 9.0. 02/13/2025: Patient seen in telemetry this morning. He was asleep during rounds and less interactive compared to prior days, likely fatigued. No acute events overnight. Remains hemodynamically stable. Urine output continues to be adequate. NG tube remains in place. Continues on PPN, D5W, and desmopressin. Thiamine 250 mg IV BID per protocol. No new GI output or bowel movement reported. Vitals: BP 100/70, HR 110. Labs: WBC 14.6, Hgb 12.7, Na 141, K 3.7, Cr 0.6, Mg and Phos within normal limits. LFTs trending slightly upward; albumin remains normal. 02/14/2025: Patient seen in telemetry, doing much better overall. Mentation continues to improve, awake, alert, and talkative. Denies nausea, vomiting, or abdominal pain. No fevers or chills. NG tube has been removed and patient tolerated the removal well. Continues on PPN and D5W with desmopressin resumed. Urine output stable and adequate. Labs reviewed: WBC 14.3, Hgb 11.7, Hct 34.5, Plt 325, Na 142, K 3.4, Cl 107, CO2 24, Cr 0.6 (GFR >60), Ca 8.7, Phos 2.9, Mg 1.8. LFTs remain mildly elevated but stable. UA, urine protein, and urine electrolytes ordered to assess for possible UTI in light of rising WBC. Continue to evaluate for partial central diabetes insipidus given prior sodium fluctuations and response to DDAVP. 02/15/2025: Patient seen in telemetry today. Clinically improving awake, alert, talking, and moving all extremities spontaneously. No new complaints. Denies nausea, vomiting, or pain. UA results returned negative, ruling out urinary infection as the source of prior leukocytosis. NG tube remains out and patient continues to tolerate without issues. Urine output remains stable and adequate. Patient did have a bowel movement and is tolerating food intake. continues on PPN, D5W, and desmopressin. Bicitra discontinued today as bicarbonate has normalized. Vitals stable. Labs: WBC 13.4 (down-trending), Hgb 11.4, Hct 33.3, Plt 462, Na 140, K 4.4, Cl 106, CO? 23.6, BUN 10, Cr 0.7, Glucose 95, Ca 9.1, Mg 2.2, Phos 3.1 Nephrology will sign off of this case please let us know if you have any questions Exam Vital Signs Temp Pulse Resp BP Pulse Ox O2 Del Method O2 Flow Rate 97.5 F 109 H 20 129/91 H 96 Room Air 2 02/15/25 08:00 02/15/25 08:00 02/15/25 08:00 02/15/25 08:00 02/15/25 08:00 02/15/25 08:00 02/11/25 20:00 Narrative Exam GENERAL: Alert, conversant, no acute distress; NG tube removed HEENT: MMM, PERRLA, no scleral icterus. NECK: Supple, no JVD. CV: Regular rate and rhythm, no murmurs. RESP: Clear to auscultation bilaterally. ABDOMEN: Soft, mildly distended, non-tender, bowel sounds present. EXTREMITIES: No edema; moves all extremities. SKIN: Warm, dry, intact. NEURO: Oriented to name, follows commands, speech clear; strength improved in all extremities Objective Labs 02/17/25 04:30 02/17/25 04:30 Labs: Laboratory Results - last 24 hr 02/15/25 05:10 WBC 13.4 H RBC 3.65 L Hgb 11.4 L Hct 33.3 L MCV 91 MCH 31.2 MCHC 34.2 RDW Std Deviation 48.2 H Plt Count 462 H D Neut % (Auto) 60 Lymph % (Auto) 31 [place] % (Auto) 6 Eos % (Auto) 2 Baso % (Auto) 0 Neut # (Auto) 8.0 H Lymph # (Auto) 4.1 [place] # (Auto) 0.9 H Eos # (Auto) 0.3 Baso # (Auto) 0.1 Immature Gran # (Auto) 0.06 H Absolute Nucleated RBC 0.00 Immature Gran % 0 Nucleated RBC % 0 Sodium 140 Potassium 4.4 D Chloride 106 Carbon Dioxide 23.6 Anion Gap 10 BUN 10 Creatinine 0.7 Estim Creat Clear Calc 167.3 eGFR > 60 BUN/Creatinine Ratio 14 Glucose 95 Calculated Osmolality 278 Calcium 8.3 Corrected Calcium 9.1 Phosphorus 3.1 Magnesium 2.2 Total Bilirubin 0.3 AST 59 H ALT 65 H Alkaline Phosphatase 51 Total Protein 5.5 L Albumin 3.0 L Globulin 2.5 Albumin/Globulin Ratio 1.2 ABG Interpretation ABG results: 02/02/25 02/06/25 02/07/25 16:10 12:13 10:45 ABG pH 7.47 H ABG pCO2 24 L ABG pO2 96 ABG HCO3 17 L ABG O2 Saturation 98 ABG Base Excess -5 L VBG pH 7.55 7.47 VBG pCO2 25 L 21 L VBG pO2 113 H 71 H VBG Base Excess 1 -6 L Quality Measures Quality Measures VTE prophylaxis Assessment & Plan Assessment Current Active Medications: Generic Name Dose Route Start Last Admin Trade Name Freq PRN Reason Stop Dose Admin Acetaminophen 650 mg 02/14/25 08:22 Acetaminophen 325 Mg Tablet PO 03/04/25 15:11 Q6H PRN Fever >99.9 Atorvastatin Calcium 40 mg 02/14/25 08:22 02/14/25 22:09 Atorvastatin Calcium 20 Mg Tablet PO 03/13/25 08:59 40 mg HS ROBBIE Administration Dextrose 50 ml 02/02/25 17:28 02/07/25 06:11 Dextrose 50%-Water Inj 50 Ml Syringe IV 03/04/25 17:27 50 ml Q15MIN PRN Administration BG <50 OR BG <70 & pt unresponsive Fluticasone Propionate 2 spray 02/11/25 09:00 02/15/25 10:31 Fluticasone Javad Tatum 0.05% 16 Gm Btl NASAL 03/13/25 08:59 1 sprays DAILY ROBBIE Administration Glucagon 1 mg 02/02/25 17:28 Glucagon Inj 1 Mg Vial IM Q15MIN PRN BG <70, and no IV access Fat Emulsion Intravenous 500 mls @ 32 mls/hr 02/09/25 18:00 02/14/25 18:00 Intralipid 20% Iv IV 03/11/25 17:59 32 mls/hr [id number] ROBBIE Administration Multivitamins/Minerals 10 ml/ 2,054 mls @ 100 mls/hr 02/15/25 08:00 02/15/25 10:15 Potassium Phosphate 30 mmol/ IV 02/16/25 04:32 100 mls/hr Magnesium Sulfate 2 gm/ .[id number] ROBBIE Administration Potassium Acetate 60 meq/ Amino Acids Insulin Human Lispro 0 unit 02/14/25 07:30 02/15/25 11:24 Insulin Lispro (Admelog) 1 Unit/0.01 Ml Unit SC 03/16/25 07:29 Not Given ACHS ROBBIE Protocol Montelukast Sodium 10 mg 02/14/25 08:23 02/15/25 09:43 Montelukast Sodium 10 Mg Tablet PO 03/15/25 09:29 10 mg DAILY ROBBIE Administration Ondansetron HCl 4 mg 02/02/25 15:17 02/13/25 21:17 Ondansetron Inj 2 Mg/Ml Inj 2 Ml IVP 03/04/25 15:16 4 mg Q6H PRN Administration NAUSEA OR VOMITING Protocol Pantoprazole Sodium 40 mg 02/15/25 21:00 Pantoprazole 40 Mg Tablet PO 03/17/25 20:59 BID ROBBIE (Ipratropium Effort 2 ea 02/11/25 09:00 02/15/25 10:12 42 Mcg (0.06 %) NASAL 03/13/25 08:59 Not Given Tatum,Non-Aerosol BID ROBBIE Potassium Phos/Sodium Phos 1 packet 02/05/25 21:00 02/07/25 09:15 Naph,Kph Mbdb 1 Packet (1.5 Gm) PO 03/07/25 20:59 Not Given BID ROBBIE Pyridoxine HCl 100 mg 02/16/25 09:00 Pyridoxine 50 Mg Tablet PO 03/18/25 08:59 QDAY ROBBIE Thiamine HCl 250 mg 02/15/25 14:00 02/15/25 13:56 Thiamine 100 Mg Tablet PO 03/17/25 13:59 250 mg TID ROBBIE Administration Plan 44-year-old male with prior thiamine deficiency?related metabolic encephalopathy and electrolyte derangements, now clinically stable with normalization of renal and metabolic parameters. # Hypernatremia (resolved) Na 140 today. Plan: * Patient currently on TPN. Electrolytes have been addressed. 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 Plan: * Continue desmopressin daily. * Monitor serum and urine osmolality/output. * Reassess need for dose adjustment once urine studies return. # Non-anion gap metabolic acidosis Likely secondary to chloride load and NG losses. Improving. Plan: * Added bicarbonate in the TPN * Recheck CO2 daily * monitor acid-base status. # Hypophosphatemia (Resolved) Phosphorus 3.1 after supplemenation, consistent with refeeding and poor intake. Plan: * Continue K-Phos supplementation. * Monitor daily until >3 # Hypomagnesemia (resolved) Mg 2.2, mild. Plan: * Continue IV magnesium repletion as needed. * Monitor levels daily. # LARISA (resolved) Cr 0.7, baseline, adequate urine output. Plan: * Continue to avoid nephrotoxins and IV contrast. * Maintain adequate hydration. # Leukocytosis WBC 13.4, afebrile, clinically stable. UA negative Plan: * Primary team will follow # Thiamine deficiency / Wernicke?s encephalopathy Lab confirmed low thiamine Mental status significantly improved with IV therapy. Plan: * Continue thiamine * Continue pyridoxine, B12 * Continue PPN support; monitor for refeeding complications. # Dysphagia / Ileus with NG suction NPO, unable to tolerate PO intake. GI following. ----- Plan discussed with attending physician Dr. Ciara Perez MD PGY-1 Internal Medicine Attending Provider Attestation/Addendum Patient seen and examined with resident physician Dr. Perez. Note reviewed, agree with findings and recommendations.
[2025-02-15 16:00] VITALS: BP 115/87; PULSE 118; PULSE 119; RESP 15; TEMP 36.4; O2SAT 98
--- NOTE | 2025-02-15 18:10 | ESPR_ITS ---
Documentation for date of: 02/15/25 Subjective Subjective Interval history: Patient was seen in telemetry today at the bedside. Patient's mental status is significantly improved back to baseline. Still with abdominal distention, not able to chew food well, back down on the consistency of the food. No seizures or myoclonic jerks reported. Exam - Neurology Vital Signs Temp Pulse Resp BP Pulse Ox O2 Del Method O2 Flow Rate 97.4 F 122 H 14 101/68 99 Room Air 2 02/15/25 12:00 02/15/25 12:00 02/15/25 12:00 02/15/25 12:00 02/15/25 12:00 02/15/25 12:00 02/11/25 20:00 Narrative Exam GENERAL APPEARANCE: Well-developed, obese built male in no acute distress. HEENT: Normocephalic, atraumatic, extraocular movements intact. Pupils: Equal reacting to light NECK: Supple, no JVD or bruits. CARDIOVASULAR: Heart: S1, S2 heard, regular without S3-S4 or murmur no rubs or gallops. LUNGS/CHEST: Clear to auscultation bilaterally. No rails, rhonchi, or wheezing. Normal inspection. ABDOMEN: Soft, nontender, with normal bowel sounds. No pulsatile masses. No rebound, rigidity, or guarding. Normal inspection and palpation. EXTREMITIES: Normal inspection and palpation. No edema, clubbing or cyanosis. SKIN: Warm and dry without rashes. Normal inspection. MUSCULOSKELETAL: No cervical, thoracic, lumbar or midline bony tenderness. Normal inspection. NEURO: Alert, awake and oriented x2. Cranial nerves: II through XII grossly intact. Speech and language: Normal with no dysarthria or dysphasia. Motor system: Tone and bulk: Normal: Strength: 5 out of 5 in all 4 extremities; No pronator drift noted. Deep tendon reflexes: 2+ bilaterally symmetrical. Plantar reflex: Downgoing bilaterally. Sensory system: Intact to all modalities of sensation bilaterally. Coordination: Intact to [id number] and [id number] test bilaterally. No ataxia, no dysmetria, or dysdiadochokinesia noted. No intention tremors noted. Gait: Not tested. No signs of meningeal irritation noted. PSYCHIATRIC: Normal mood and affect. Objective Labs 02/16/25 06:28 02/16/25 06:28 Labs: Laboratory Results - last 24 hr 02/15/25 05:10 WBC 13.4 H RBC 3.65 L Hgb 11.4 L Hct 33.3 L MCV 91 MCH 31.2 MCHC 34.2 RDW Std Deviation 48.2 H Plt Count 462 H D Neut % (Auto) 60 Lymph % (Auto) 31 [place] % (Auto) 6 Eos % (Auto) 2 Baso % (Auto) 0 Neut # (Auto) 8.0 H Lymph # (Auto) 4.1 [place] # (Auto) 0.9 H Eos # (Auto) 0.3 Baso # (Auto) 0.1 Immature Gran # (Auto) 0.06 H Absolute Nucleated RBC 0.00 Immature Gran % 0 Nucleated RBC % 0 Sodium 140 Potassium 4.4 D Chloride 106 Carbon Dioxide 23.6 Anion Gap 10 BUN 10 Creatinine 0.7 Estim Creat Clear Calc 167.3 eGFR > 60 BUN/Creatinine Ratio 14 Glucose 95 Calculated Osmolality 278 Calcium 8.3 Corrected Calcium 9.1 Phosphorus 3.1 Magnesium 2.2 Total Bilirubin 0.3 AST 59 H ALT 65 H Alkaline Phosphatase 51 Total Protein 5.5 L Albumin 3.0 L Globulin 2.5 Albumin/Globulin Ratio 1.2 ABG Interpretation ABG results: 02/02/25 02/06/25 02/07/25 16:10 12:13 10:45 ABG pH 7.47 H ABG pCO2 24 L ABG pO2 96 ABG HCO3 17 L ABG O2 Saturation 98 ABG Base Excess -5 L VBG pH 7.55 7.47 VBG pCO2 25 L 21 L VBG pO2 113 H 71 H VBG Base Excess 1 -6 L Assessment & Plan Assessment and plan (1) Altered mental status: Status: Resolved Assessment and plan: continue with thiamine Hold off on the LP at this time (2) Electrolyte imbalance: Status: Acute Assessment and plan: Resolved Continue to monitor closely (3) Encephalopathy acute: Status: Resolved Assessment and plan: Significant improvement noted Back to baseline. Will continue to monitor closely. (4) Dysphagia: Status: Acute Assessment and plan: Patient underwent esophageal dilatation by GI on Dysphagia diet.
--- NOTE | 2025-02-15 18:27 | PD.IMPROG ---
Documentation for date of: 02/15/25 Subjective Subjective Interval history: Patient evaluated He had 3 large bowel movements yesterday He had 2 large bowel volume yesterday Tolerating diet Still waxing and waning mental status but improving Exam Vital Signs Temp Pulse Resp BP Pulse Ox O2 Del Method O2 Flow Rate 97.4 F 122 H 14 101/68 99 Room Air 2 02/15/25 12:00 02/15/25 12:00 02/15/25 12:00 02/15/25 12:00 02/15/25 12:00 02/15/25 12:00 02/11/25 20:00 Objective Labs 02/15/25 05:10 02/15/25 05:10 Labs: Laboratory Results - last 24 hr 02/15/25 05:10 WBC 13.4 H RBC 3.65 L Hgb 11.4 L Hct 33.3 L MCV 91 MCH 31.2 MCHC 34.2 RDW Std Deviation 48.2 H Plt Count 462 H D Neut % (Auto) 60 Lymph % (Auto) 31 [place] % (Auto) 6 Eos % (Auto) 2 Baso % (Auto) 0 Neut # (Auto) 8.0 H Lymph # (Auto) 4.1 [place] # (Auto) 0.9 H Eos # (Auto) 0.3 Baso # (Auto) 0.1 Immature Gran # (Auto) 0.06 H Absolute Nucleated RBC 0.00 Immature Gran % 0 Nucleated RBC % 0 Sodium 140 Potassium 4.4 D Chloride 106 Carbon Dioxide 23.6 Anion Gap 10 BUN 10 Creatinine 0.7 Estim Creat Clear Calc 167.3 eGFR > 60 BUN/Creatinine Ratio 14 Glucose 95 Calculated Osmolality 278 Calcium 8.3 Corrected Calcium 9.1 Phosphorus 3.1 Magnesium 2.2 Total Bilirubin 0.3 AST 59 H ALT 65 H Alkaline Phosphatase 51 Total Protein 5.5 L Albumin 3.0 L Globulin 2.5 Albumin/Globulin Ratio 1.2 Impressions Impression: Stool impaction improving with multiple bowel movements No nausea vomiting Metabolic encephalopathy Continue current management ABG Interpretation ABG results: 02/02/25 02/06/25 02/07/25 16:10 12:13 10:45 ABG pH 7.47 H ABG pCO2 24 L ABG pO2 96 ABG HCO3 17 L ABG O2 Saturation 98 ABG Base Excess -5 L VBG pH 7.55 7.47 VBG pCO2 25 L 21 L VBG pO2 113 H 71 H VBG Base Excess 1 -6 L Assessment & Plan Time Spent With Patient Time: Total time spent is greater than 50% in coordination of care (as documented) at patient's floor/unit and/or counseling patient:
[2025-02-15 20:00] VITALS: BP 115/86; PULSE 114; PULSE 117; RESP 14; TEMP 36.4; O2SAT 97
[2025-02-15] MEDS: ATORVASTATIN CALCIUM 20 MG TABLET 40 MG PO (21:04)
[2025-02-15] MEDS: PANTOPRAZOLE 40 MG TABLET PO (21:05)
[2025-02-15] MEDS: NAPH,KPH MBDB 1 PACKET (1.5 GM) PO (21:05)
[2025-02-16] VITALS: BP 110/80; PULSE 113; PULSE 115; RESP 19; TEMP 36.1; O2SAT 96
[2025-02-16 04:00] VITALS: BP 129/81; PULSE 107; RESP 16; TEMP 36.3; O2SAT 97
[2025-02-16 05:22] VITALS: BMI 44.9
[2025-02-16] MEDS: THIAMINE 100 MG TABLET 250 MG PO ×3 (05:23→21:07)
[2025-02-16 07:15] LABS: Basophils # (Auto) 0.1 Thou/mm3 (0.0-0.2); Basophils % (Auto) 1 % (0-2.5); Eosinophils # (Auto) 0.4 Thou/mm3 (0.0-0.5); Eosinophils % (Auto) 3 % (0-10); Hematocrit 32.9 % (41.0-53.0); Hemoglobin 11.0 g/dL (13.5-16.0); Immature Granulocytes Auto 0.03 Thou/mm3 (0.00-0.00); Lymphocytes # (Auto) 4.3 Thou/mm3 (1.0-4.8); Lymphocytes % (Auto) 39 % (10-50); Mean Corpuscular HGB Conc 33.4 g/dl (31.0-37.0); Mean Corpuscular Hemoglobin 31.3 pg (25.0-35.0); Mean Corpuscular Volume 94 fL (80-100); Monocytes # (Auto) 0.7 Thou/mm3 (0.0-0.8); Monocytes % (Auto) 6 % (0-12); Neutrophils # (Auto) 5.6 Thou/mm3 (1.8-7.7); Neutrophils % (Auto) 51 % (37-80); Nucleated Red Blood Cell # 0.00 Thou/mm3 (0.00-0.00); Nucleated Red Blood Cell % 0 /100 WBC (0); Platelet Count 491 Thou/mm3 (140-440); RDW Standard Deviation 50.2 fL (35.1-43.9); Red Blood Count 3.52 Miln/mm3 (4.50-5.90); White Blood Count 11.0 Thou/mm3 (3.8-10.6)
[2025-02-16 07:47] LABS: Alanine Aminotransferase 76 U/L (10-49); Albumin, Serum 3.3 gm/dL (3.5-5.0); Albumin/Globulin Ratio 1.4 (1.2-2.2); Alkaline Phosphatase 53 U/L (46-116); Anion Gap 10 (7-16); Aspartate Amino Transferase 63 U/L (0-34); BUN/Creatinine Ratio 19 Ratio (12-20); Bilirubin,Total 0.4 mg/dL (0.3-1.2); Blood Urea Nitrogen 13 mg/dL (9-23); Calcium 8.8 mg/dL (8.3-10.6); Calcium (Corrected) 9.4 mg/dL (8.5-10.1); Carbon Dioxide 27.0 mMol/L (20.0-31.0); Chloride 106 mMol/L (98-107); Creatinine (Component) 0.7 mg/dL (0.6-1.3); Estimated Creatinine Clearance 167.7 mL/min (>60); Globulin 2.4 gm/dL (2.3-3.5); Glucose 96 mg/dL (74-106); Magnesium 2.1 mg/dL (1.6-2.6); Osmolality,Calculated 285 (275-295); Phosphorous 3.6 mg/dL (2.4-5.1); Potassium 4.0 mMol/L (3.4-5.1); Sodium 143 mMol/L (136-145); Total Protein 5.7 gm/dL (5.7-8.2); eGFR > 60 See Note
[2025-02-16 08:00] VITALS: BP 106/88; PULSE 103; PULSE 113; RESP 30; TEMP 36.2; O2SAT 97
[2025-02-16] MEDS: FLUTICASONE NAS SPRAY 0.05% 16 GM BTL 2 SPRAY NASAL (09:37)
[2025-02-16] MEDS: PANTOPRAZOLE 40 MG TABLET PO ×2 (09:37→20:41)
[2025-02-16] MEDS: MONTELUKAST SODIUM 10 MG TABLET PO (09:38)
[2025-02-16] MEDS: NAPH,KPH MBDB 1 PACKET (1.5 GM) PO ×2 (09:38→20:41)
[2025-02-16] MEDS: PYRIDOXINE 50 MG TABLET 100 MG PO (09:38)
--- NOTE | 2025-02-16 11:26 | PC.SS ---
Addendum entered by Rae Perez 02/16/25 16:28: Rounding note: Patient is not eating, may discharge in 1-2 days. [facility] informed. Patient to discharge to [facility] when medically clear. Insurance auth. has been obtained. [facility] stated they have received auth. and can accept patient. SS contacted [facility] to confirm if patient has coverage for non-emergency transportation. [facility] stated patient does not have ambulance nor wheelchair transportation coverage. [facility] was contacted, no gurney transportation available today. contacted Dr. Scott to confirm if patient will still discharge today, he informed SS patient is staying. Original Note: SS informed by Dr. Scott patient may discharge to [facility] today. SS contacted [facility] to confirm if patient can be accepted today, confirmation pending.
[2025-02-16 12:00] VITALS: BP 107/68; PULSE 108; PULSE 113; RESP 15; TEMP 36.6; O2SAT 97
--- NOTE | 2025-02-16 12:35 | PD.RESPRO ---
Documentation for date of: 02/16/25 Subjective Subjective Interval history: Patient was seen and examined at bedside this morning. No acute overnight events. Patient this morning did not eat his breakfast that he stated that he had some abdominal pain and was full. Patient's mother was at bedside and stated that this morning he did not want to eat there for the abdominal portion. Yesterday patient was documented to have eating 75% of his dinner. Discontinue PPN today, but will reassess possibly restarting it if patient does not eat his lunch. Will start patient on Reglan to see if we can encourage gastric motility and started patient on mirtazapine for appetite stimulant. Mentation ash patient was AO x 3 today to person, time, and place. Will have PT try and get patient to set up at the chair. Exam Vital Signs Temp Pulse Resp BP Pulse Ox O2 Del Method O2 Flow Rate 97.8 F 113 H 15 107/68 97 Room Air 2 02/16/25 12:00 02/16/25 12:00 02/16/25 12:00 02/16/25 12:00 02/16/25 12:00 02/16/25 12:00 02/11/25 20:00 Narrative Exam General: A/O x3, no acute distress, following commands Eyes: PERRL, EOMI. Anicteric, vision grossly intact. Ears: No ear pain, no ear discharge, Hearing grossly intact. Nose: No nasal discharge. Mouth/Throat: Moist mucous membranes, no redness, no lesions, dental caries and front L tooth absent. Neck: Neck supple, non-tender, no cervical lymphadenopathy. Lungs: Clear THIERRY to auscultation and percussion, No accessory muscle use. Cardio: Normal S1/S2, regular rhythm, no murmurs, no JVD or carotid bruits. Abdomen: Soft, non-tender, no palpable masses, peristalsis present, no guarding or rebound. Extremities: Symmetrical, no significant deformities, no peripheral edema , non-tender, peripheral pulses presents. Skin: No rashes, no lesions, warm to touch. Neuro: No focal neurological deficits. motor and sensory intact. Strength THIERRY LE and UE 4/5 Psych: Cooperative, still flat affect Objective Labs 02/16/25 06:28 02/16/25 06:28 Labs: Laboratory Results - last 24 hr 02/16/25 06:28 WBC 11.0 H RBC 3.52 L Hgb 11.0 L Hct 32.9 L MCV 94 MCH 31.3 MCHC 33.4 RDW Std Deviation 50.2 H Plt Count 491 H Neut % (Auto) 51 Lymph % (Auto) 39 [place] % (Auto) 6 Eos % (Auto) 3 Baso % (Auto) 1 Neut # (Auto) 5.6 Lymph # (Auto) 4.3 [place] # (Auto) 0.7 Eos # (Auto) 0.4 Baso # (Auto) 0.1 Immature Gran # (Auto) 0.03 H Absolute Nucleated RBC 0.00 Immature Gran % 0 Nucleated RBC % 0 Sodium 143 Potassium 4.0 Chloride 106 Carbon Dioxide 27.0 Anion Gap 10 BUN 13 Creatinine 0.7 Estim Creat Clear Calc 167.7 eGFR > 60 BUN/Creatinine Ratio 19 Glucose 96 Calculated Osmolality 285 Calcium 8.8 Corrected Calcium 9.4 Phosphorus 3.6 Magnesium 2.1 Total Bilirubin 0.4 AST 63 H ALT 76 H Alkaline Phosphatase 53 Total Protein 5.7 Albumin 3.3 L Globulin 2.4 Albumin/Globulin Ratio 1.4 ABG Interpretation ABG results: 02/02/25 02/06/25 02/07/25 16:10 12:13 10:45 ABG pH 7.47 H ABG pCO2 24 L ABG pO2 96 ABG HCO3 17 L ABG O2 Saturation 98 ABG Base Excess -5 L VBG pH 7.55 7.47 VBG pCO2 25 L 21 L VBG pO2 113 H 71 H VBG Base Excess 1 -6 L Quality Measures Quality Measures VTE prophylaxis Assessment & Plan Assessment Current Active Medications: Generic Name Dose Route Start Last Admin Trade Name Bartolo PRN Reason Stop Dose Admin Acetaminophen 650 mg 02/14/25 08:22 Acetaminophen 325 Mg Tablet PO 03/04/25 15:11 Q6H PRN Fever >99.9 Atorvastatin Calcium 40 mg 02/14/25 08:22 02/15/25 21:04 Atorvastatin Calcium 20 Mg Tablet PO 03/13/25 08:59 40 mg HS ROBBIE Administration Dextrose 50 ml 02/02/25 17:28 02/07/25 06:11 Dextrose 50%-Water Inj 50 Ml Syringe IV 03/04/25 17:27 50 ml Q15MIN PRN Administration BG <50 OR BG <70 & pt unresponsive Fluticasone Propionate 2 spray 02/11/25 09:00 02/16/25 09:37 Fluticasone Javad [place]en[place] 0.05% 16 Gm Btl NASAL 03/13/25 08:59 2 sprays DAILY ROBBIE Administration Glucagon 1 mg 02/02/25 17:28 Glucagon Inj 1 Mg Vial IM Q15MIN PRN BG <70, and no IV access Insulin Human Lispro 0 unit 02/14/25 07:30 02/16/25 08:32 Insulin Lispro (Admelog) 1 Unit/0.01 Ml Unit SC 03/16/25 07:29 Not Given ACHS ROBBIE Protocol Metoclopramide HCl 5 mg 02/16/25 14:00 Metoclopramide 5 Mg Tablet PO 03/18/25 13:59 Q8HR ROBBIE Mirtazapine 7.5 mg 02/16/25 11:45 Mirtazapine 15 Mg Tablet PO 03/18/25 11:44 QDAY ROBBIE Montelukast Sodium 10 mg 02/14/25 08:23 02/16/25 09:38 Montelukast Sodium 10 Mg Tablet PO 03/15/25 09:29 10 mg DAILY ROBBIE Administration Ondansetron HCl 4 mg 02/02/25 15:17 02/13/25 21:17 Ondansetron Inj 2 Mg/Ml Inj 2 Ml IVP 03/04/25 15:16 4 mg Q6H PRN Administration NAUSEA OR VOMITING Protocol Pantoprazole Sodium 40 mg 02/15/25 21:00 02/16/25 09:37 Pantoprazole 40 Mg Tablet PO 03/17/25 20:59 40 mg BID ROBBIE Administration (Ipratropium [place] 2 ea 02/11/25 09:00 02/16/25 09:38 42 Mcg (0.06 %) NASAL 03/13/25 08:59 Not Given [place],Non-Aerosol BID ROBBIE Potassium Phos/Sodium Phos 1 packet 02/05/25 21:00 02/16/25 09:38 [place],[facility] Mbdb 1 Packet (1.5 Gm) PO 03/07/25 20:59 1 packet BID ROBBIE Administration Pyridoxine HCl 100 mg 02/16/25 09:00 02/16/25 09:38 Pyridoxine 50 Mg Tablet PO 03/18/25 08:59 100 mg QDAY ROBBIE Administration Thiamine HCl 250 mg 02/15/25 14:00 02/16/25 05:23 Thiamine 100 Mg Tablet PO 03/17/25 13:59 250 mg TID ROBBIE Administration Plan Logan Dye 44M with pmhx significant for HTN, hx of gastric angiodysplasias s/p cautery 12/20/24, GERD, asthma, HLD, 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 #Acute metabolic encephalopathy 2/2 malnutrition/vitamin deficiency #Elevated lactic acid, resolved #Distended small bowel loops, likely possible ileus #Sinus tachycardia Patient presented with altered mental status, was unable to give a history but was able to deny or admit symptoms for a review of systems. Patient met severe sepsis criteria on admission with tachycardia and leukocytosis in addition to lactic acid of 10.8, which is evidence of end organ damage due to hypoperfusion, however currently no source of infection identified and further differentials as below. Spoke with family who reported younger brother of possible BALTAZAR virus at age 17. Admission VBG showed a pH of 7.55 and a pCO2 of 25. Ammonia mildly elevated 36. Syphillis cocci HIV and hep panel neg. UDS neg, salicylates and acetaminophen neg. UA 1+ protein, 2+ blood, 54 RBC, 24 WBC, LE+. CK wnl 50, beta hydroxy 0.6, 02/06 ABG 7.47/24/96/17. 02/07 VBG 7.47///95 Lactic acid on admission 10.8->6.2->3.8->2.6 but then uptrended 4.1->2.7->5.2->4.5->2.5->3.1 despite fluids, eventually downtrended to 2.5-> 2.0. CT abdomen pelvis was negative for hydronephrosis or ureteral calculi. CXR unremarkable. UCx and BCx, likely due to recent outpatient antibiotic course. 02/04 Echo showed EF estimated 60-65% The right ventricle is normal in size and systolic function. Normal aortic valve. Trace mitral and trace tricuspid regurgitation NO EVIDENCE OF VEGETATIONS. TDS due to patient lying supine and non- cooperative EEG was abnormal with diffuse slowing suggestive of diffuse encephalopathy of metabolic, degenerative or vascular origin. No epileptiform discharges noted. Brain MRI negative for acute hemorrhage, mass effect or midline shift, no acute infarct or microvascular white matter change. 02/06 Abd XR showed multiple air distended small bowel loops in the central abdomen, orogastric tube in stomach but stomach remains air distended 02/07 CTA with cont shows 4 mm lower pole nonobstructing right renal calculus, no hydronephrosis or ureteral calculi. Normal appendix. Mildly fluid distended small bowel loops, consider ileus, enteritis such as Crohn's disease. No findings diagnostic for ischemic small bowel but clinical correlation is advised. 02/07 CT orbit/face shows significant bilateral chronic mastoiditis, negative for acute mastoiditis, negative for otitis media or acquired cholesteatoma Ddx: Source of elevated lactic acid and/or encephalopathy possibly 2/2 thiamine deficiency however unclear why patient experieces such dysphagia and weakness. Continued sinus tachycardia likely 2/2 constipation and dehydration. Patient's mentation continued to worsened until 02/08, suddenly improved able to recognize family members and speak in full sentences, mentation continues to improve 02/10 EGD showed few nonbleeding erosions at GE junction, diffuse moderate inflammation in gastric antrum, normal duodenum. Vanc (02/02-02/08), Cefepime (02/02-02/09), metronidazole (02/07-02/09) 02/12 Abdominal gastrograffin study negaive for SBO KOJO 1:320, prolactin wnl, Thiamine resulted <6, thiamine 500 mg TID (02/09-02/11) Plan: - Restart small frequent meals - Started reglan 5mg TID scheduled for gastric motility and mirtazipine 7.5 mg qday for appetite stimulation - Neurology consulted, recs appreciated: continue bicitra and desmopressin - GI consulted, recs appreciated: B12 injection x1, pyridoxine PO QD - Continue thiamine PO 250 mg TID for 5 days (02/12-02/17), then 100 mg QD - F/u [facility] antibodies, aceylcholine receptor antibodies - PT ordered, recommends SNF - Stop PPN at 100 cc/hr for nutrition, 3L/24h (02/09- , plan to restart tomorrow if patient's PO intake does not increase - General surgery consulted, recs appreciated - Continue assisted feeds during meal times as patient's intake is increasing #Electrolyte abnormalities #Hypernatremia, improved #Hypokalemia #Hyperchloremia #Hypophosphatemia #Hypomagnesemia #Hypocalcemia, resolved Patient presented with Na of 146, with gradual increase everyday despite D5W. Likely 2/2 poor PO intake 2/2 AMS. Cannot exclude neurological cause given patient is becoming more encephalopathic everyday. Ddx includes small bowel microischemia, RTA, HAGMA with respiratory compensation. Delta Delta calculated -8 with 02/07 labs signifying one of the three following: Mixed HAGMA and NAGMA. Mixed HAGMA with chronic respiratory alkalosis plys hyperchloremic acidosis. HAGMA with preexisting low anion gap state (hypoalbuminemia, paraproteinemia, etc). 02/08 Ulytes sodium 145 protein 74 and potassium 40 and chloride 136. And repeat UA 1+ ketones no indication of UTI. Likely severely dehydrated due to poor p.o. intake for months. Free water decifit 6.2L. Patient has received cumulative 14L of fluids from 02/08 since admission with recorded output 1575 mL with Guo inserted on 02/06 however some of the fluids were NS. Plan: - Replete electrolytes as necessary - Nephrology consulted, recs appreciated - Continue SC desmopressin 2 mcg QD - CTM daily electrolytes #Normocytic anemia #Leukocytosis, downtrending Initially Hgb 18.4, however following fluids resolved. However, on 02/07, Hgb decreased to 11.8 and stayed 10-12s. 12/22 iron panel iron wnl 97, TIBC high 201, iron sat 48, unsat iron binding low 104, ferritin 199. Ddx: anemia possible 2/2 decreased production due to lack of nutrients from decreased PO intake vs active GIB given black NG suctions. Leukocytosis likely reactive as patient has received full dose of cefepime and elevation occurred following PPN administration. Plan: - CTM CBC #Transaminitis, improving #Coagulopathy, improving #Metabolic dysfunction-associated steatotic liver disease #Non-obstructing gallstones On admission, PT elevated 14.6 with INR 1.4, and AST ALT 80/217. AST/ALT initially peaked and downtrended. Not on hepatotoxic home medication and denies alcohol use. Denies RUQ pain. Abdominal ultrasound negative for cholelithiasis or cholecystitis, multiple gallstones, liver 14.5 cm fatty infiltration no focal liver lesions Ddx includes acidotic state with elevated lactic acid impairing coagulation with subsequent liver and tissue damage. Plan: - CTM LFTs - Avoid hepatotoxic medications #GERD Per history taken from the patient's mother Plan: - PO pantoprazole 40 mg BID #Hypercholesterolemia Per history taken from patient's mother. Patient takes atorvastatin 40 mg p.o. daily at home Plan: - Hold in the presence of transaminitis #Asthma Per patient history gathered from patient's mother. Patient montelukast 10 mg p.o. daily Plan: - No indication for treatment at this time as patient is asymptomatic #Hyperglycemia (Resolved) Fingerstick glucose 237 on arrival. Per patient's mother, he does not have a history of diabetes. 02/03/25 A1c 5.9 Plan: - SSI in place #Hyperthyroidism (Resolved) Thyroxine 13.6 repeat thyroxine 1.18. Consider acute phase thyrotoxicosis reaction over underlying thyroid condition #Bilateral chronic mastoiditis Patient presented with mild occasional L mastoid tenderness, and family complained of persistent sinus infection. CT orbit showed significant bilateral chronic mastoiditis. Plan: - Recommend to follow up outpatient for further evaluation and management Disposition: Pending increase PO intake Diet: dysphagia 2 frequent small meals GI prophylaxis: protonix DVT prophylaxis: SCDs Code: Full Case disclosed with Attending Dr. Arash Sawyer PGY2 Disclaimer: Even though this this note was dictated by speech recognition and even though it was carefully revised there may still be minor errors in rubbish collector due to voice recognition software. Attending Provider Attestation/Addendum I have discussed and was present for the essential components of the history, physical examination, diagnosis, and treatment plan with the resident. I agree with the patient's care as documented by the resident and amended herein by me. Hugo Antoine DO. Although this document has been carefully reviewed, there may still be some phonetic and other typographical errors. These errors are purely grammatical due to imperfections in the software program and should not be construed in any way to compromise the substance of the patient's medical care during this visit. Patient seen and evaluated this AM. Patient very tired today, per his family he did not eat much of his dinner last night and did not eat any breakfast this morning, the family also stated he felt very nauseous after eating yesterday. Patient's had 2 bowel movements overnight, per his family, he did not eat much dinner and did not eat any breakfast this morning, also stated he was nauseous after attempting to eat. Significant labs, hemoglobin stable at 11, WBC 11 today, BMP largely unremarkable with exception of persistently elevated AST and ALT to 63 and 76 respectively. Will continue to try more frequent smaller meals, I am going to defer PPN at this time however may start Reglan and an appetite stimulant mirtazapine 7.5 mg daily for now and see how the patient does. Hopefully the patient can be discharged in next 1 to 2 days if he can tolerate oral diet.
[2025-02-16] MEDS: METOCLOPRAMIDE 5 MG TABLET PO ×2 (13:15→21:07)
[2025-02-16] MEDS: MIRTAZAPINE 15 MG TABLET 7.5 MG PO (13:16)
[2025-02-16 16:00] VITALS: BP 116/81; PULSE 114; PULSE 116; RESP 22; TEMP 36.2; O2SAT 97
--- NOTE | 2025-02-16 17:08 | ESPR_ITS ---
Documentation for date of: 02/16/25 Subjective Subjective Interval history: Complained of some abdominal pain but no vomiting Exam Vital Signs Temp Pulse Resp BP Pulse Ox O2 Del Method O2 Flow Rate 97.2 F 116 H 22 H 116/81 97 Room Air 2 02/16/25 16:00 02/16/25 16:00 02/16/25 16:00 02/16/25 16:00 02/16/25 16:00 02/16/25 16:00 02/11/25 20:00 Objective Labs 02/16/25 06:28 02/16/25 06:28 Labs: Laboratory Results - last 24 hr 02/16/25 06:28 WBC 11.0 H RBC 3.52 L Hgb 11.0 L Hct 32.9 L MCV 94 MCH 31.3 MCHC 33.4 RDW Std Deviation 50.2 H Plt Count 491 H Neut % (Auto) 51 Lymph % (Auto) 39 [place] % (Auto) 6 Eos % (Auto) 3 Baso % (Auto) 1 Neut # (Auto) 5.6 Lymph # (Auto) 4.3 [place] # (Auto) 0.7 Eos # (Auto) 0.4 Baso # (Auto) 0.1 Immature Gran # (Auto) 0.03 H Absolute Nucleated RBC 0.00 Immature Gran % 0 Nucleated RBC % 0 Sodium 143 Potassium 4.0 Chloride 106 Carbon Dioxide 27.0 Anion Gap 10 BUN 13 Creatinine 0.7 Estim Creat Clear Calc 167.7 eGFR > 60 BUN/Creatinine Ratio 19 Glucose 96 Calculated Osmolality 285 Calcium 8.8 Corrected Calcium 9.4 Phosphorus 3.6 Magnesium 2.1 Total Bilirubin 0.4 AST 63 H ALT 76 H Alkaline Phosphatase 53 Total Protein 5.7 Albumin 3.3 L Globulin 2.4 Albumin/Globulin Ratio 1.4 Impressions Impression: Abdominal distention resolved Having bowel movements No vomiting nausea Continue current management Agree with addition of Reglan ABG Interpretation ABG results: 02/02/25 02/06/25 02/07/25 16:10 12:13 10:45 ABG pH 7.47 H ABG pCO2 24 L ABG pO2 96 ABG HCO3 17 L ABG O2 Saturation 98 ABG Base Excess -5 L VBG pH 7.55 7.47 VBG pCO2 25 L 21 L VBG pO2 113 H 71 H VBG Base Excess 1 -6 L Assessment & Plan Time Spent With Patient Time: Total time spent is greater than 50% in coordination of care (as documented) at patient's floor/unit and/or counseling patient:
[2025-02-16 20:00] VITALS: BP 148/106; PULSE 116; PULSE 124; RESP 14; TEMP 36.6; O2SAT 98
[2025-02-16] MEDS: ATORVASTATIN CALCIUM 20 MG TABLET 40 MG PO (20:41)
--- NOTE | 2025-02-16 22:28 | VVPN_ITS ---
Telemedicine visit statement This visit was conducted with the use of phone was obtained on 02/16/25 at 2228. Documentation for date of: 02/16/25 Subjective Subjective Interval history: Patient is in telemetry, no issues reported, able to chew fine, on Dysphagia 2 diet. Virtual exam Vital Signs Temp Pulse Resp BP Pulse Ox O2 Del Method O2 Flow Rate 97.8 F 116 H 14 148/106 H 98 Room Air 2 02/16/25 20:00 02/16/25 20:00 02/16/25 20:00 02/16/25 20:00 02/16/25 20:00 02/16/25 20:00 02/11/25 20:00 Objective Labs 02/16/25 06:28 02/16/25 06:28 Labs: Laboratory Results - last 24 hr 02/16/25 06:28 WBC 11.0 H RBC 3.52 L Hgb 11.0 L Hct 32.9 L MCV 94 MCH 31.3 MCHC 33.4 RDW Std Deviation 50.2 H Plt Count 491 H Neut % (Auto) 51 Lymph % (Auto) 39 [place] % (Auto) 6 Eos % (Auto) 3 Baso % (Auto) 1 Neut # (Auto) 5.6 Lymph # (Auto) 4.3 [place] # (Auto) 0.7 Eos # (Auto) 0.4 Baso # (Auto) 0.1 Immature Gran # (Auto) 0.03 H Absolute Nucleated RBC 0.00 Immature Gran % 0 Nucleated RBC % 0 Sodium 143 Potassium 4.0 Chloride 106 Carbon Dioxide 27.0 Anion Gap 10 BUN 13 Creatinine 0.7 Estim Creat Clear Calc 167.7 eGFR > 60 BUN/Creatinine Ratio 19 Glucose 96 Calculated Osmolality 285 Calcium 8.8 Corrected Calcium 9.4 Phosphorus 3.6 Magnesium 2.1 Total Bilirubin 0.4 AST 63 H ALT 76 H Alkaline Phosphatase 53 Total Protein 5.7 Albumin 3.3 L Globulin 2.4 Albumin/Globulin Ratio 1.4 ABG Interpretation ABG results: 02/02/25 02/06/25 02/07/25 16:10 12:13 10:45 ABG pH 7.47 H ABG pCO2 24 L ABG pO2 96 ABG HCO3 17 L ABG O2 Saturation 98 ABG Base Excess -5 L VBG pH 7.55 7.47 VBG pCO2 25 L 21 L VBG pO2 113 H 71 H VBG Base Excess 1 -6 L Assessment & Plan Assessment (1) Altered mental status: Status: Resolved Assessment and plan: continue with thiamine Hold off on the LP at this time (2) Electrolyte imbalance: Status: Acute Assessment and plan: Resolved Continue to monitor closely (3) Encephalopathy acute: Status: Resolved Assessment and plan: Significant improvement noted Back to baseline. Will continue to monitor closely. (4) Dysphagia: Status: Acute Assessment and plan: Patient underwent esophageal dilatation by GI on Dysphagia diet. Noted that he is going to be discharged to [facility].
[2025-02-17] VITALS (7 sets, daily range): BP systolic 111–138; BP diastolic 70–98; PULSE 112–133; RESP 12–22; TEMP 36.1–36.6; O2SAT 96–99; BMI 43.9
[2025-02-17] MEDS: THIAMINE 100 MG TABLET 250 MG PO ×3 (05:03→21:25)
[2025-02-17] MEDS: METOCLOPRAMIDE 5 MG TABLET PO ×3 (05:03→21:25)
[2025-02-17 06:40] LABS: Basophils # (Auto) 0.1 Thou/mm3 (0.0-0.2); Basophils % (Auto) 1 % (0-2.5); Eosinophils # (Auto) 0.4 Thou/mm3 (0.0-0.5); Eosinophils % (Auto) 4 % (0-10); Hematocrit 33.6 % (41.0-53.0); Hemoglobin 11.0 g/dL (13.5-16.0); Immature Granulocytes Auto 0.03 Thou/mm3 (0.00-0.00); Lymphocytes # (Auto) 4.4 Thou/mm3 (1.0-4.8); Lymphocytes % (Auto) 42 % (10-50); Mean Corpuscular HGB Conc 32.7 g/dl (31.0-37.0); Mean Corpuscular Hemoglobin 31.3 pg (25.0-35.0); Mean Corpuscular Volume 96 fL (80-100); Monocytes # (Auto) 0.7 Thou/mm3 (0.0-0.8); Monocytes % (Auto) 6 % (0-12); Neutrophils # (Auto) 4.8 Thou/mm3 (1.8-7.7); Neutrophils % (Auto) 46 % (37-80); Nucleated Red Blood Cell # 0.00 Thou/mm3 (0.00-0.00); Nucleated Red Blood Cell % 0 /100 WBC (0); Platelet Count 644 Thou/mm3 (140-440); RDW Standard Deviation 52.4 fL (35.1-43.9); Red Blood Count 3.52 Miln/mm3 (4.50-5.90); White Blood Count 10.4 Thou/mm3 (3.8-10.6)
[2025-02-17 06:47] LABS: Alanine Aminotransferase 105 U/L (10-49); Albumin, Serum 3.4 gm/dL (3.5-5.0); Albumin/Globulin Ratio 1.4 (1.2-2.2); Alkaline Phosphatase 59 U/L (46-116); Anion Gap 11 (7-16); Aspartate Amino Transferase 85 U/L (0-34); BUN/Creatinine Ratio 13 Ratio (12-20); Bilirubin,Total 0.4 mg/dL (0.3-1.2); Blood Urea Nitrogen 10 mg/dL (9-23); Calcium 8.9 mg/dL (8.3-10.6); Calcium (Corrected) 9.4 mg/dL (8.5-10.1); Carbon Dioxide 26.7 mMol/L (20.0-31.0); Chloride 108 mMol/L (98-107); Creatinine (Component) 0.8 mg/dL (0.6-1.3); Estimated Creatinine Clearance 144.8 mL/min (>60); Globulin 2.4 gm/dL (2.3-3.5); Glucose 88 mg/dL (74-106); Magnesium 2.0 mg/dL (1.6-2.6); Osmolality,Calculated 288 (275-295); Phosphorous 4.0 mg/dL (2.4-5.1); Potassium 4.1 mMol/L (3.4-5.1); Sodium 146 mMol/L (136-145); Total Protein 5.8 gm/dL (5.7-8.2); eGFR > 60 See Note
[2025-02-17] MEDS: SUCRALFATE SUSP 1 GM/10 ML UDC PO ×3 (08:31→21:25)
[2025-02-17] MEDS: PANTOPRAZOLE 40 MG TABLET PO ×2 (08:32→21:25)
[2025-02-17] MEDS: MONTELUKAST SODIUM 10 MG TABLET PO (08:32)
[2025-02-17] MEDS: MIRTAZAPINE 15 MG TABLET 7.5 MG PO (08:32)
[2025-02-17] MEDS: PYRIDOXINE 50 MG TABLET 100 MG PO (08:32)
[2025-02-17] MEDS: FLUTICASONE NAS SPRAY 0.05% 16 GM BTL 2 SPRAY NASAL (08:32)
[2025-02-17] MEDS: NAPH,KPH MBDB 1 PACKET (1.5 GM) PO ×2 (08:33→21:25)
[2025-02-17] MEDS: IPRATROPIUM 0.06% NASAL (11:25)
--- NOTE | 2025-02-17 12:54 | PD.RESPRO ---
Documentation for date of: 02/17/25 Subjective Subjective Interval history: No acute events. Patient seen examined at bedside. Currently reports mild abdominal pain after eating some of breakfast, worst is a 5 out of 10 pain. Reports feeling slightly confused this morning, is alert but not oriented. Denies any bodily pain, nausea or vomiting or fever. Vitals labs reviewed, BP fluctuates SBP 100-150, telemetry reviewed sinus tachycardia 100-1 20s. WBC 10.4, hemoglobin stable low 11, platelets increased from 491 o 644. Sodium 146, chloride 108, creatinine 0.8, AST ALT 85/105 slightly uptrending. Is tolerating Reglan and mirtazapine. Last 2 meals recorded 50% eaten. Continue thiamine and started Carafate for abdominal pain with history of ulcers. Encourage p.o. intake. Exam Vital Signs Temp Pulse Resp BP Pulse Ox O2 Del Method O2 Flow Rate 97.0 F 120 H 15 111/90 H 96 Room Air 2 02/17/25 12:00 02/17/25 12:00 02/17/25 12:00 02/17/25 12:00 02/17/25 12:00 02/17/25 12:00 02/11/25 20:00 Narrative Exam GENERAL: Alert, but fluctuating orientation AOx0 in AM and x3 in afternoon, following commands HEENT: mucous membranes moist, bilateral sclera anicteric, +dental caries and front L tooth absent CARDIOVASCULAR: regular rate and rhythm, S1/S2 present, no murmurs appreciated PULMONARY: clear to auscultation bilaterally, no rales/rhonchi/wheezes ABDOMINAL: soft, non-tender, non-distended, no rebound/guarding, bowel sounds present EXTREMITIES: no peripheral edema SKIN: warm and dry, intact, no wounds NEURO: CN II-XII grossly intact, 4/5 BLE strength, decreased sensation on dorsum of bilateral feet Objective Labs 02/17/25 04:30 02/17/25 04:30 Labs: Laboratory Results - last 24 hr 02/17/25 04:30 WBC 10.4 RBC 3.52 L Hgb 11.0 L Hct 33.6 L MCV 96 MCH 31.3 MCHC 32.7 RDW Std Deviation 52.4 H Plt Count 644 H D Neut % (Auto) 46 Lymph % (Auto) 42 [place] % (Auto) 6 Eos % (Auto) 4 Baso % (Auto) 1 Neut # (Auto) 4.8 Lymph # (Auto) 4.4 [place] # (Auto) 0.7 Eos # (Auto) 0.4 Baso # (Auto) 0.1 Immature Gran # (Auto) 0.03 H Absolute Nucleated RBC 0.00 Immature Gran % 0 Nucleated RBC % 0 Sodium 146 H Potassium 4.1 Chloride 108 H Carbon Dioxide 26.7 Anion Gap 11 BUN 10 Creatinine 0.8 Estim Creat Clear Calc 144.8 eGFR > 60 BUN/Creatinine Ratio 13 Glucose 88 Calculated Osmolality 288 Calcium 8.9 Corrected Calcium 9.4 Phosphorus 4.0 Magnesium 2.0 Total Bilirubin 0.4 AST 85 H ALT 105 H Alkaline Phosphatase 59 Total Protein 5.8 Albumin 3.4 L Globulin 2.4 Albumin/Globulin Ratio 1.4 ABG Interpretation ABG results: 02/02/25 02/06/25 02/07/25 16:10 12:13 10:45 ABG pH 7.47 H ABG pCO2 24 L ABG pO2 96 ABG HCO3 17 L ABG O2 Saturation 98 ABG Base Excess -5 L VBG pH 7.55 7.47 VBG pCO2 25 L 21 L VBG pO2 113 H 71 H VBG Base Excess 1 -6 L Quality Measures Quality Measures VTE prophylaxis Assessment & Plan Assessment Current Active Medications: Generic Name Dose Route Start Last Admin Trade Name Freq PRN Reason Stop Dose Admin Acetaminophen 650 mg 02/14/25 08:22 Acetaminophen 325 Mg Tablet PO 03/04/25 15:11 Q6H PRN Fever >99.9 Atorvastatin Calcium 40 mg 02/14/25 08:22 02/16/25 20:41 Atorvastatin Calcium 20 Mg Tablet PO 03/13/25 08:59 40 mg HS ROBBIE Administration Ipratropium [place] 0. 0 ea 02/17/25 10:45 02/17/25 11:25 06% NASAL 03/19/25 10:44 2 spray BID ROBBIE Administration Dextrose 50 ml 02/02/25 17:28 02/07/25 06:11 Dextrose 50%-Water Inj 50 Ml Syringe IV 03/04/25 17:27 50 ml Q15MIN PRN Administration BG <50 OR BG <70 & pt unresponsive Fluticasone Propionate 2 spray 02/11/25 09:00 02/17/25 08:32 Fluticasone Javad [place] 0.05% 16 Gm Btl NASAL 03/13/25 08:59 2 sprays DAILY ROBBIE Administration Glucagon 1 mg 02/02/25 17:28 Glucagon Inj 1 Mg Vial IM Q15MIN PRN BG <70, and no IV access Insulin Human Lispro 0 unit 02/14/25 07:30 02/17/25 11:26 Insulin Lispro (Admelog) 1 Unit/0.01 Ml Unit SC 03/16/25 07:29 Not Given ACHS ROBBIE Protocol Metoclopramide HCl 5 mg 02/16/25 14:00 02/17/25 05:03 Metoclopramide 5 Mg Tablet PO 03/18/25 13:59 5 mg Q8HR ROBBIE Administration Mirtazapine 7.5 mg 02/16/25 11:45 02/17/25 08:32 Mirtazapine 15 Mg Tablet PO 03/18/25 11:44 7.5 mg QDAY ROBBIE Administration Montelukast Sodium 10 mg 02/14/25 08:23 02/17/25 08:32 Montelukast Sodium 10 Mg Tablet PO 03/15/25 09:29 10 mg DAILY ROBBIE Administration Ondansetron HCl 4 mg 02/02/25 15:17 02/13/25 21:17 Ondansetron Inj 2 Mg/Ml Inj 2 Ml IVP 03/04/25 15:16 4 mg Q6H PRN Administration NAUSEA OR VOMITING Protocol Pantoprazole Sodium 40 mg 02/15/25 21:00 02/17/25 08:32 Pantoprazole 40 Mg Tablet PO 03/17/25 20:59 40 mg BID ROBBIE Administration Potassium Phos/Sodium Phos 1 packet 02/05/25 21:00 02/17/25 08:33 [facility] 1 Packet (1.5 Gm) PO 03/07/25 20:59 1 packet BID ROBBIE Administration Pyridoxine HCl 100 mg 02/16/25 09:00 02/17/25 08:32 Pyridoxine 50 Mg Tablet PO 03/18/25 08:59 100 mg QDAY ROBBIE Administration Sucralfate 1 gm 02/17/25 08:30 02/17/25 08:31 Sucralfate Susp 1 Gm/10 Ml Udc PO 03/19/25 08:29 1 gm TID ROBBIE Administration Thiamine HCl 250 mg 02/15/25 14:00 02/17/25 05:03 Thiamine 100 Mg Tablet PO 03/17/25 13:59 250 mg TID ROBBIE Administration Plan Logan Dye 44M with pmhx significant for HTN, hx of gastric angiodysplasias s/p cautery 12/20/24, GERD, asthma, HLD, 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 #Acute metabolic encephalopathy 2/2 malnutrition/vitamin deficiency #Elevated lactic acid, resolved #Distended small bowel loops, likely possible ileus #Sinus tachycardia Patient presented with altered mental status, was unable to give a history but was able to deny or admit symptoms for a review of systems. Patient met severe sepsis criteria on admission with tachycardia and leukocytosis in addition to lactic acid of 10.8, which is evidence of end organ damage due to hypoperfusion, however currently no source of infection identified and further differentials as below. Spoke with family who reported younger brother of possible BALTAZAR virus at age 17. Admission VBG showed a pH of 7.55 and a pCO2 of 25. Ammonia mildly elevated 36. Syphillis cocci HIV and hep panel neg. UDS neg, salicylates and acetaminophen neg. UA 1+ protein, 2+ blood, 54 RBC, 24 WBC, LE+. CK wnl 50, beta hydroxy 0.6, 02/06 ABG 7.47/24/96/17. 02/07 VBG 7.47//71/95 Lactic acid on admission 10.8->6.2->3.8->2.6 but then uptrended 4.1->2.7->5.2->4.5->2.5->3.1 despite fluids, eventually downtrended to 2.5-> 2.0. CT abdomen pelvis was negative for hydronephrosis or ureteral calculi. CXR unremarkable. UCx and BCx, likely due to recent outpatient antibiotic course. 02/04 Echo showed EF estimated 60-65% The right ventricle is normal in size and systolic function. Normal aortic valve. Trace mitral and trace tricuspid regurgitation NO EVIDENCE OF VEGETATIONS. TDS due to patient lying supine and non- cooperative EEG was abnormal with diffuse slowing suggestive of diffuse encephalopathy of metabolic, degenerative or vascular origin. No epileptiform discharges noted. Brain MRI negative for acute hemorrhage, mass effect or midline shift, no acute infarct or microvascular white matter change. 02/06 Abd XR showed multiple air distended small bowel loops in the central abdomen, orogastric tube in stomach but stomach remains air distended 02/07 CTA with cont shows 4 mm lower pole nonobstructing right renal calculus, no hydronephrosis or ureteral calculi. Normal appendix. Mildly fluid distended small bowel loops, consider ileus, enteritis such as Crohn's disease. No findings diagnostic for ischemic small bowel but clinical correlation is advised. 02/07 CT orbit/face shows significant bilateral chronic mastoiditis, negative for acute mastoiditis, negative for otitis media or acquired cholesteatoma Ddx: Source of elevated lactic acid and/or encephalopathy possibly 2/2 thiamine deficiency however unclear why patient experieces such dysphagia and weakness. Continued sinus tachycardia likely 2/2 constipation and dehydration. Patient's mentation continued to worsened until 02/08, suddenly improved able to recognize family members and speak in full sentences, mentation continues to improve 02/10 EGD showed few nonbleeding erosions at GE junction, diffuse moderate inflammation in gastric antrum, normal duodenum. Vanc (02/02-02/08), Cefepime (02/02-02/09), metronidazole (02/07-02/09) 02/12 Abdominal gastrograffin study negaive for SBO KOJO 1:320, prolactin wnl, Thiamine resulted <6, thiamine 500 mg TID (02/09-02/11) Plan: - Restart small frequent meals - Continue reglan 5mg TID scheduled for gastric motility and mirtazipine 7.5 mg qday for appetite stimulation - Neurology consulted, recs appreciated - GI consulted, recs appreciated: B12 injection x1, pyridoxine PO QD - Continue thiamine PO 250 mg TID for 5 days (02/12-02/17), then 100 mg QD - Carafate 1g TID started - F/u [facility] antibodies, aceylcholine receptor antibodies - PT ordered, recommends SNF - Discontinued PPN at 100 cc/hr for nutrition, 3L/24h (02/09-02/16) , plan to restart if patient's PO intake does not increase - Continue assisted feeds during meal times as patient's intake is increasing #Electrolyte abnormalities #Hypernatremia, improved #Hypokalemia #Hyperchloremia #Hypophosphatemia #Hypomagnesemia #Hypocalcemia, resolved Patient presented with Na of 146, with gradual increase everyday despite D5W. Likely 2/2 poor PO intake 2/2 AMS. Cannot exclude neurological cause given patient is becoming more encephalopathic everyday. Ddx includes small bowel microischemia, RTA, HAGMA with respiratory compensation. Delta Delta calculated -8 with 02/07 labs signifying one of the three following: Mixed HAGMA and NAGMA. Mixed HAGMA with chronic respiratory alkalosis plys hyperchloremic acidosis. HAGMA with preexisting low anion gap state (hypoalbuminemia, paraproteinemia, etc). 02/08 Ulytes sodium 145 protein 74 and potassium 40 and chloride 136. And repeat UA 1+ ketones no indication of UTI. Likely severely dehydrated due to poor p.o. intake for months. Free water decifit on admission 6.2L. Patient has received cumulative 14L of fluids from 02/08 since admission with recorded output 1575 mL with Guo inserted on 02/06 however some of the fluids were NS. Plan: - Replete electrolytes as necessary - Nephrology consulted, recs appreciated - Continue SC desmopressin 2 mcg QD - CTM daily electrolytes #Normocytic anemia #Leukocytosis, downtrending #Thrombocytosis Initially Hgb 18.4, however following fluids resolved. However, on 02/07, Hgb decreased to 11.8 and stayed 10-12s. 12/22 iron panel iron wnl 97, TIBC high 201, iron sat 48, unsat iron binding low 104, ferritin 199. On 02/17, platelets increased to 462 and have been uptrending. Ddx: anemia possible 2/2 decreased production due to lack of nutrients from decreased PO intake vs active GIB given black NG suctions. Leukocytosis likely reactive as patient has received full dose of cefepime and elevation occurred following PPN administration. Plan: - CTM CBC #Transaminitis, improving #Coagulopathy, improving #Metabolic dysfunction-associated steatotic liver disease #Non-obstructing gallstones On admission, PT elevated 14.6 with INR 1.4, and AST ALT 80/217. AST/ALT initially peaked and downtrended. Not on hepatotoxic home medication and denies alcohol use. Denies RUQ pain. Abdominal ultrasound negative for cholelithiasis or cholecystitis, multiple gallstones, liver 14.5 cm fatty infiltration no focal liver lesions Ddx includes acidotic state with elevated lactic acid impairing coagulation with subsequent liver and tissue damage. Plan: - CTM LFTs - Avoid hepatotoxic medications #GERD Per history taken from the patient's mother Plan: - PO pantoprazole 40 mg BID #Hypercholesterolemia Per history taken from patient's mother. Patient takes atorvastatin 40 mg p.o. daily at home Plan: - Atorvastatin 40 mg qhs #Asthma Per patient history gathered from patient's mother. Patient montelukast 10 mg p.o. daily Plan: - No indication for treatment at this time as patient is asymptomatic #Hyperglycemia (Resolved) Fingerstick glucose 237 on arrival. Per patient's mother, he does not have a history of diabetes. 02/03/25 A1c 5.9 Plan: - SSI in place #Hyperthyroidism (Resolved) Thyroxine 13.6 repeat thyroxine 1.18. Consider acute phase thyrotoxicosis reaction over underlying thyroid condition #Bilateral chronic mastoiditis Patient presented with mild occasional L mastoid tenderness, and family complained of persistent sinus infection. CT orbit showed significant bilateral chronic mastoiditis. Plan: - Recommend to follow up outpatient for further evaluation and management Hospital management: Lines: PIV Diet: Dysphagia 2 Bowel: none GI prophylaxis: IV pantoprazole 40 mg BID DVT prophylaxis: SCDs Disposition: tele, pending increased PO intake CODE STATUS: FULL CODE Plan of care discussed with attending Dr. Antoine. Mercedes Yuen DO PGY-1 Internal Medicine Attending Provider Attestation/Addendum I have discussed and was present for the essential components of the history, physical examination, diagnosis, and treatment plan with the resident. I agree with the patient's care as documented by the resident and amended herein by me. Hugo Antoine DO. Although this document has been carefully reviewed, there may still be some phonetic and other typographical errors. These errors are purely grammatical due to imperfections in the software program and should not be construed in any way to compromise the substance of the patient's medical care during this visit. Patient seen and evaluated this AM. No acute events overnight, vital signs stable, patient afebrile, patient still mildly tachycardic in the a.m., states he feels better today, he ate approximately 50% of his breakfast as reported by nursing staff, I did start Carafate today, he will continue the Carafate mirtazapine for appetite stimulation, Reglan and Protonix for now. Hopefully he will continue to improve and we can discharge to SNF tomorrow on 02/18. Labs largely unremarkable, hemoglobin stable at 11, platelets did jump up to 644, unclear etiology may be lab error, sodium 146, chloride 108, liver enzymes still mildly elevated, AST 85, ALT 105 with a normal T. bili. Albumin 3.4. Will continue to try small more frequent meals today and see how he does, hopeful discharge to SNF tomorrow 02/18.
[2025-02-17] MEDS: HYDROcodone/APAP 5/325 TABLET 1 TAB PO (13:46)
[2025-02-17] MEDS: METOPROLOL SUCCINATE XL 25 MG TABCR PO (14:04)
--- NOTE | 2025-02-17 14:32 | PC.SS ---
Rounding note: May discharge / if he can tolerate diet. Discharging to [facility] SNF when appropriate.
--- NOTE | 2025-02-17 18:15 | ESPR_ITS ---
Documentation for date of: 02/17/25 Subjective Subjective Interval history: Patient evaluated somewhat confused Hemoglobin hematocrit 11.0 and 33.6 Exam Vital Signs Temp Pulse Resp BP Pulse Ox O2 Del Method O2 Flow Rate 97.0 F 132 H 15 132/94 H 99 Room Air 2 02/17/25 16:00 02/17/25 16:00 02/17/25 16:00 02/17/25 16:00 02/17/25 16:00 02/17/25 16:00 02/11/25 20:00 Objective Labs 02/17/25 04:30 02/17/25 04:30 Labs: Laboratory Results - last 24 hr 02/17/25 04:30 WBC 10.4 RBC 3.52 L Hgb 11.0 L Hct 33.6 L MCV 96 MCH 31.3 MCHC 32.7 RDW Std Deviation 52.4 H Plt Count 644 H D Neut % (Auto) 46 Lymph % (Auto) 42 [place] % (Auto) 6 Eos % (Auto) 4 Baso % (Auto) 1 Neut # (Auto) 4.8 Lymph # (Auto) 4.4 [place] # (Auto) 0.7 Eos # (Auto) 0.4 Baso # (Auto) 0.1 Immature Gran # (Auto) 0.03 H Absolute Nucleated RBC 0.00 Immature Gran % 0 Nucleated RBC % 0 Sodium 146 H Potassium 4.1 Chloride 108 H Carbon Dioxide 26.7 Anion Gap 11 BUN 10 Creatinine 0.8 Estim Creat Clear Calc 144.8 eGFR > 60 BUN/Creatinine Ratio 13 Glucose 88 Calculated Osmolality 288 Calcium 8.9 Corrected Calcium 9.4 Phosphorus 4.0 Magnesium 2.0 Total Bilirubin 0.4 AST 85 H ALT 105 H Alkaline Phosphatase 59 Total Protein 5.8 Albumin 3.4 L Globulin 2.4 Albumin/Globulin Ratio 1.4 Impressions Impression: Abdominal distention mild Adynamic ileus resolving Metabolic encephalopathy Continue current management ABG Interpretation ABG results: 02/02/25 02/06/25 02/07/25 16:10 12:13 10:45 ABG pH 7.47 H ABG pCO2 24 L ABG pO2 96 ABG HCO3 17 L ABG O2 Saturation 98 ABG Base Excess -5 L VBG pH 7.55 7.47 VBG pCO2 25 L 21 L VBG pO2 113 H 71 H VBG Base Excess 1 -6 L Assessment & Plan Time Spent With Patient Time: Total time spent is greater than 50% in coordination of care (as documented) at patient's floor/unit and/or counseling patient:
[2025-02-17] MEDS: ATORVASTATIN CALCIUM 20 MG TABLET 40 MG PO (21:24)
[2025-02-18] VITALS (8 sets, daily range): BP systolic 114–138; BP diastolic 85–101; PULSE 97–114; RESP 16–21; TEMP 35.9–37; O2SAT 94–97; BMI 43.9
[2025-02-18] MEDS: SUCRALFATE SUSP 1 GM/10 ML UDC PO ×2 (05:23→14:30)
[2025-02-18] MEDS: METOCLOPRAMIDE 5 MG TABLET PO ×2 (05:23→14:30)
[2025-02-18] MEDS: THIAMINE 100 MG TABLET 250 MG PO (05:23)
[2025-02-18 06:28] LABS: Acetylcholine Rec Bind Ab* <0.30 nmol/L; Striated Muscle Ab NEGATIVE (NEGATIVE)
[2025-02-18 06:29] LABS: Acetylcholine Rec Bloc Ab* <15 (<15); Acetylcholine Rec Mod Ab* <1
[2025-02-18 08:19] LABS: Alanine Aminotransferase 96 U/L (10-49); Albumin, Serum 3.5 gm/dL (3.5-5.0); Albumin/Globulin Ratio 1.3 (1.2-2.2); Alkaline Phosphatase 64 U/L (46-116); Anion Gap 10 (7-16); Aspartate Amino Transferase 61 U/L (0-34); BUN/Creatinine Ratio 15 Ratio (12-20); Bilirubin,Total 0.4 mg/dL (0.3-1.2); Blood Urea Nitrogen 12 mg/dL (9-23); Calcium 9.2 mg/dL (8.3-10.6); Calcium (Corrected) 9.6 mg/dL (8.5-10.1); Carbon Dioxide 27.3 mMol/L (20.0-31.0); Chloride 108 mMol/L (98-107); Creatinine (Component) 0.8 mg/dL (0.6-1.3); Estimated Creatinine Clearance 144.9 mL/min (>60); Globulin 2.7 gm/dL (2.3-3.5); Glucose 93 mg/dL (74-106); Magnesium 1.8 mg/dL (1.6-2.6); Osmolality,Calculated 288 (275-295); Phosphorous 3.5 mg/dL (2.4-5.1); Potassium 4.2 mMol/L (3.4-5.1); Sodium 145 mMol/L (136-145); Total Protein 6.2 gm/dL (5.7-8.2); eGFR > 60 See Note
[2025-02-18] MEDS: METOPROLOL SUCCINATE XL 25 MG TABCR PO (08:25)
[2025-02-18] MEDS: PYRIDOXINE 50 MG TABLET 100 MG PO (08:25)
[2025-02-18] MEDS: MONTELUKAST SODIUM 10 MG TABLET PO (08:26)
[2025-02-18] MEDS: THIAMINE 100 MG TABLET PO (08:26)
[2025-02-18] MEDS: MIRTAZAPINE 15 MG TABLET 7.5 MG PO (08:26)
[2025-02-18] MEDS: NAPH,KPH MBDB 1 PACKET (1.5 GM) PO (08:26)
[2025-02-18] MEDS: PANTOPRAZOLE 40 MG TABLET PO (08:26)
[2025-02-18] MEDS: IPRATROPIUM 0.06% NASAL (08:41)
[2025-02-18] MEDS: FLUTICASONE NAS SPRAY 0.05% 16 GM BTL 2 SPRAY NASAL (08:41)
--- NOTE | 2025-02-18 14:22 | PC.SS ---
follow up note: Patient has d/c orders. SS scheduled gurney transport through [facility] with a ref# [id number] with a pick up and delivery driver time of 5p.m. SS updated floor nurse and patient's mother.
--- NOTE | 2025-02-18 17:32 | ESDS_ITS ---
<Statement entered by Moo Sawyer MD - 02/18/25 19:42> I have reviewed the note and agree with the resident's assessment & plan with exceptions as below. I have personally reviewed labs, imaging, home meds/prior records, examined the patient, formulated and discussed management plan with my attending. Patient seen and examined at bedside. PO intake improved and patient stable enough to be discharged to SNF. Moo Sawyer PGY2 Disclaimer: Even though this this note was dictated by speech recognition and even though it was carefully revised there may still be minor errors in deep submergence vehicle operator due to voice recognition software. Planned Discharge Date 02/18/25 DS: Providers Provider Date of admission: 02/02/25 15:12 Primary care physician: Abdiel Esparza MD Admitting Provider: Javier Baltazar MD Attending Provider on Admission: Ronak Antoine DO Consults: 02/03/25 02:30 Referral Physical Therapy Routine Comment: Physician Instructions: 02/03/25 09:14 Referral Speech Therapy Urgent Comment: Swallow Eval 02/03/25 10:24 Consult to Neurology / Tele-Neurology Routine Comment: Consulting Provider: Loy Broderick 02/07/25 14:34 Consult to Gastroenterology Routine Comment: Consulting Provider: Joshua Campos 02/07/25 15:51 Consult to Nephrology Routine Comment: Consulting Provider: Ramone Urbina 02/07/25 17:11 Referral Registered Dietitian Stat Comment: 02/09/25 14:31 Referral Registered Dietitian Routine Comment: PPN 02/11/25 13:22 Consult to General Surgery Routine Comment: Consulting Provider: Ana Mancini 02/13/25 14:52 Referral Speech Therapy Stat Comment: Attending Provider on DC: Ronak Antoine DO Discharging Provider: Ronak Antoine DO DS: Diagnosis Problem List Completed Was Problem List Reviewed/Reconciled?: Yes Hospital Course Hospital Course Hospital course: Summary: Logan Dye 44M with pmhx significant for HTN, 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 Patient presented with altered mental status and gradual weakness since discharge from last admission in 12/2024. At the time patient presented with dysphagia in which EGD was done and esophagus was subsequently dilated. However since this admission, patient has lost weight as well has continued weakness with poor p.o. intake. On admission patient met sepsis criteria with tachycardia and leukocytosis with a lactic acid of 10.8 however no source of infection could be identified and patient was put on broad spectrum antibiotics. On admission, it was noted that electrolytes were very deranged and were subsequently repleted daily, for which nephrology was consulted. Neurology was also consulted for AMS, with negative EEG, unsuccessful LP, and negative antibodies, with exception of positive KOJO 1:320. Lactic acid initially downtrended following fluids however mentation did not improve. From 02/06 to 02/07, patient mental status significantly declined and was not responsive to questions, gazing away and not acknowledging staff when he initially did. Repeat lactic acid was done and found to be elevated. Throughout hospital stay, multimodal imaging was done as seen below with no significant findings that contributed to patient's significant decline in mental status. On 02/07, GI was consulted and patient was started on multivitamins including thiamine with significant overnight improvement in mentation following administration. Although patient's mentation improved, still altered per family and not at baseline. Despite improvement in mentation, patient was also found to have bowel ileus and NG tube was placed with significant black-colored suctioned fluid. Patient's NG tube drained significantly for 4 days before decreasing. Gastrografin small bowel study showed no obstruction and GoLytely was given with resultant bowel movement. Patient's mentation, alertness and orientation would wax and wane throughout the day and could now be his baseline. Thiamine levels eventually resulted as less than 6. Patient was supplemented with high-dose thiamine later de-escalated. At the time patient had not been eating since admission and PPN was given from 02/09-02/16. As patient started PPN, urine output suddenly increased and there was concern for SIADH and desmopressin was given. Patient slowly began tolerating p.o. intake, eventually eating 50-75% of his meals close to discharge, however experienced abdominal pain from eating too much in which Carafate was started given erosions found on GE junction on EGD. Patient was then to tolerate p.o. intake more comfortably, eating about 100% of meals prior to discharge with reglan and mirtazapine. Of note, throughout hospital stay, patient was found to be tachycardic despite eventual improvement in mentation, and was eventually treated with beta sourav. In summary, acute metabolic encephalopathy secondary to malnutrition and vitamin deficiency of thiamine which caused elevated lactic acid and significant electrolyte abnormalities. On discharge, patient hemodynamically stable, mentation much improved since admission, labs and vitals reviewed to be stable and patient is ready to be discharged to alf facility. Imaging: CT abdomen pelvis was negative for hydronephrosis or ureteral calculi. CXR unremarkable. UCx and BCx, likely due to recent outpatient antibiotic course. 02/04 Echo showed EF estimated 60-65% The right ventricle is normal in size and systolic function. Normal aortic valve. Trace mitral and trace tricuspid regurgitation NO EVIDENCE OF VEGETATIONS. TDS due to patient lying supine and non- cooperative EEG was abnormal with diffuse slowing suggestive of diffuse encephalopathy of metabolic, degenerative or vascular origin. No epileptiform discharges noted. Brain MRI negative for acute hemorrhage, mass effect or midline shift, no acute infarct or microvascular white matter change. 02/06 Abd XR showed multiple air distended small bowel loops in the central abdomen, orogastric tube in stomach but stomach remains air distended 02/07 CTA with cont shows 4 mm lower pole nonobstructing right renal calculus, no hydronephrosis or ureteral calculi. Normal appendix. Mildly fluid distended small bowel loops, consider ileus, enteritis such as Crohn's disease. No findin gs diagnostic for ischemic small bowel but clinical correlation is advised. 02/07 CT orbit/face shows significant bilateral chronic mastoiditis, negative for acute mastoiditis, negative for otitis media or acquired cholesteatoma 02/10 EGD showed few nonbleeding erosions at GE junction, diffuse moderate inflammation in gastric antrum, normal duodenum. 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 - Please continue advancing your diet to larger meals slowly and as tolerated and patient will require assistance with meals to encourage proper intake - Continue all home medications except as above - If your symptoms worsen, please seek immediate medical attention and return to your nearest emergency room. - If you do not have a PCP, you may follow up at the [facility] at [address] [place] [address] [address], [facility] [address], Hospital Diagnoses: #Acute metabolic encephalopathy 2/2 malnutrition/vitamin deficiency #Elevated lactic acid, resolved #Distended small bowel loops, likely possible ileus #Sinus tachycardia #Electrolyte abnormalities #Hypernatremia, improved #Hypokalemia #Hyperchloremia #Hypophosphatemia #Hypomagnesemia #Hypocalcemia, resolved #Normocytic anemia #Leukocytosis, downtrending #Thrombocytosis #Transaminitis, improving #Coagulopathy, improving #Metabolic dysfunction-associated steatotic liver disease #Non-obstructing gallstones #GERD #Hypercholesterolemia #Asthma #Hyperglycemia (Resolved) #Hyperthyroidism (Resolved) #Bilateral chronic mastoiditis Mercedes Yuen, DO Internal Medicine, PGY-1 Time Spent with Patient Time attestation: Total time spent providing and/or coordinating discharge services: Time spent: Greater than 30 minutes Exam Vital Signs Temp Pulse Resp BP Pulse Ox O2 Del Method O2 Flow Rate 97.7 F 114 H 18 122/93 H 95 Room Air 2 02/18/25 11:44 02/18/25 16:00 02/18/25 11:44 02/18/25 11:44 02/18/25 11:44 02/18/25 11:44 02/11/25 20:00 Narrative Exam GENERAL: Alert, but fluctuating orientation AOx0 in AM and x3 in afternoon, following commands HEENT: mucous membranes moist, bilateral sclera anicteric, +dental caries and front L tooth absent CARDIOVASCULAR: regular rate and rhythm, S1/S2 present, no murmurs appreciated PULMONARY: clear to auscultation bilaterally, no rales/rhonchi/wheezes ABDOMINAL: soft, non-tender, non-distended, no rebound/guarding, bowel sounds present EXTREMITIES: no peripheral edema SKIN: warm and dry, intact, no wounds NEURO: CN II-XII grossly intact, 4/5 BLE strength, decreased sensation on dorsum of bilateral feet Discharge Plan Plan Patient Disposition: Xfer Skilled Nsg Fac (SNF) Disposition Comment: Pt discharged to [facility]. Report called and given to BHARGAV Childress. Care Plan Goals: Please follow up with your primary care physician within 3-5 days upon discharge Please follow up with [employer]isher within 7 days upon discharge Please follow up with nephrology within 7 days upon discharge Please follow up with nuerology within 7 days upon discharge Please continue taking thiamine 100mg once daily, sucralfate 1 gram 3 times a day, mirtazapine 7.5 mg daily, metoclopramide 5mg daily, and omeprazole 40mg twice a day Please continue taking multivitamin and pyridoxine once a day. Please continue advancing your diet to larger meals slowly and as tolerated and patient will require assistance with meals to encourage proper intake Please come back to the ER if symptoms persist or worsen. Prescriptions/Referrals Prescriptions/Med Rec: New multivitamin [Daily Multi-Vitamin] Tablet 1 tab PO QDAY Qty: 30 0RF thiamine HCl (vitamin B1) 100 mg tablet 100 mg PO QDAY Qty: 30 0RF pyridoxine (vitamin B6) 100 mg tablet 100 mg PO QDAY Qty: 30 0RF sucralfate 1 gram tablet 1 g PO TID Qty: 90 0RF Rx Instructions: before meals or meds. metoclopramide HCl [Reglan] 5 mg tablet 5 mg PO QDAY Qty: 30 0RF mirtazapine 7.5 mg tablet 7.5 mg PO QDAY Qty: 30 0RF Continued fluticasone propionate 50 mcg/actuation spray,suspension 2 spray INTRANASAL DAILY ipratropium bromide 42 mcg (0.06 %) spray,non-aerosol 2 spray INTRANASAL BID montelukast 10 mg tablet 10 mg PO DAILY ondansetron 4 mg tablet,disintegrating 4 mg PO Q8H PRN (Reason: nausea and vomiting) Qty: 14 0RF Changed atorvastatin 20 mg tablet 40 mg PO HS Qty: 60 0RF omeprazole 40 mg capsule,delayed release(DR/EC) 40 mg PO BID Qty: 30 0RF Referrals: Abdiel Esparza MD [Primary Care Provider, Family Practice] Joshua Campos MD [Physician, Gastroenterology] Loy Broderick MD [Physician, Neurology] Ramone Urbina MD [Physician, Nephrology] Patient/Caregiver Discharge Instructions Other Discharge Activity Instructions:: Please follow up with your primary care physician within 3-5 days upon discharge Please follow up with [employer] finisher within 7 days upon discharge Please follow up with nephrology within 7 days upon discharge Please follow up with nuerology within 7 days upon discharge Please continue taking thiamine 100mg once daily, sucralfate 1 gram 3 times a day, mirtazapine 7.5 mg daily, metoclopramide 5mg daily, and omeprazole 40mg twice a day Please continue taking multivitamin and pyridoxine once a day. Please continue advancing your diet to larger meals slowly and as tolerated and patient will require assistance with meals to encourage proper intake Please come back to the ER if symptoms persist or worsen. Education Materials: Thiamine, Vitamin B1 tablets, Electrolytes, Vitamin B-12, Anatomy of the Brain Print Language: Russian Stand Alone Forms: ALTHIA Info., Patient Portal Info Letter Discharge Order Discharge Orders: Discharge (Routine); Ordered 02/18/25 Ordered By: Moo Sawyer Quality Discharge Quality Measures VTE prophylaxis MD Attestestation MD Attestation I have discussed and was present for the essential components of the discharge history, physical examination, diagnosis, and discharge treatment plan with the resident. I agree with the patient's discharge care as documented by the resident and amended herein by me. Hugo Antoine DO. The patient understood all discharge instructions, all questions were answered satisfactorily. The patient was instructed to return to the Emergency Department is symptoms worsened or persisted. Patient markedly improved from time of admission, patient is now tolerating 100% of his diet. We will send the patient on mirtazapine 7.5 mg daily for appetite stimulation, vitamin B6, sucralfate, changes omeprazole to 40 mg twice daily for several weeks and Reglan 5 mg p.o. daily and thiamine. 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 Patient's family was at bedside and understood all discharge instructions, all questions answered satisfactorily. Although this document has been carefully reviewed, there may still be some phonetic and other typographical errors. These errors are purely grammatical due to imperfections in the software program and should not be construed in any way to compromise the substance of the patient's medical care during this visit. Time Spent on discharge: 38 minutes
--- NOTE | 2025-02-18 22:10 | PD.RESPRO ---
Documentation for date of: 02/18/25 Subjective Subjective Interval history: Patient examined at bedside. Sitting comfortably eating dinner. Still unable to state where he is located. Upon questioning patient stated that he believes to be an his apartment in [place]. Stated correct month and year after second attempt. Not at baseline per mother and aunt at bedside but shows significant improvement. Continue dysphagia 2 diet with physical therapy work. Exam Vital Signs Temp Pulse Resp BP Pulse Ox O2 Del Method O2 Flow Rate 96.6 F L 104 H 16 136/89 H 97 Room Air 2 02/18/25 18:01 02/18/25 18:01 02/18/25 18:01 02/18/25 18:01 02/18/25 18:01 02/18/25 11:44 02/11/25 20:00 Narrative Exam GENERAL APPEARANCE: Middle age male, Well-developed, obese built male in no acute distress. HEENT: Normocephalic, atraumatic, extraocular movements intact. Pupils: Equal reacting to light NECK: Supple, no JVD or bruits. CARDIOVASULAR: Heart: S1, S2 heard, regular without S3-S4 or murmur no rubs or gallops. LUNGS/CHEST: Clear to auscultation bilaterally. No rails, rhonchi, or wheezing. Normal inspection. ABDOMEN: Soft, nontender, distended. No pulsatile masses. No rebound, rigidity, or guarding. Normal inspection and palpation. EXTREMITIES: Normal inspection and palpation. No edema, clubbing or cyanosis. SKIN: Warm and dry without rashes. Normal inspection. MUSCULOSKELETAL: No cervical, thoracic, lumbar or midline bony tenderness. Normal inspection. NEURO: Alert, awake and oriented x2. Cranial nerves: II through XII grossly intact. Speech and language: Normal with no dysarthria or dysphasia. Slow responses. Motor system: Tone and bulk: Normal: Strength: 5 out of 5 in all 4 extremities; No pronator drift noted. Deep tendon reflexes: 2+ bilaterally symmetrical. Plantar reflex: Downgoing bilaterally. Sensory system: Intact to all modalities of sensation bilaterally. Coordination: Intact to pviokv-cuda-gbstm and urey-jdaa-ftyy test bilaterally. No ataxia, no dysmetria, or dysdiadochokinesia noted. No intention tremors noted. Gait: Not tested. No signs of meningeal irritation noted. PSYCHIATRIC: Normal mood and affect. Objective Labs 02/17/25 04:30 02/18/25 07:44 Labs: Laboratory Results - last 24 hr 02/07/25 02/18/25 23:06 07:44 Sodium 145 Potassium 4.2 Chloride 108 H Carbon Dioxide 27.3 Anion Gap 10 BUN 12 Creatinine 0.8 Estim Creat Clear Calc 144.9 eGFR > 60 BUN/Creatinine Ratio 15 Glucose 93 Calculated Osmolality 288 Calcium 9.2 Corrected Calcium 9.6 Phosphorus 3.5 Magnesium 1.8 Total Bilirubin 0.4 AST 61 H ALT 96 H Alkaline Phosphatase 64 Total Protein 6.2 Albumin 3.5 Globulin 2.7 Albumin/Globulin Ratio 1.3 Striated Muscle Ab Ttr TNP Striated Musc Total Ab NEGATIVE Acetylchol Rcpt Block Ab <15 Acetylchol Rcpt Bind Ab <0.30 Acetylchol Rcpt Modu Ab <1 ABG Interpretation ABG results: 02/02/25 02/06/25 02/07/25 16:10 12:13 10:45 ABG pH 7.47 H ABG pCO2 24 L ABG pO2 96 ABG HCO3 17 L ABG O2 Saturation 98 ABG Base Excess -5 L VBG pH 7.55 7.47 VBG pCO2 25 L 21 L VBG pO2 113 H 71 H VBG Base Excess 1 -6 L Quality Measures Quality Measures VTE prophylaxis Assessment & Plan Assessment Current Active Medications: Generic Name Dose Route Start Last Admin Trade Name Freq PRN Reason Stop Dose Admin Acetaminophen 650 mg 02/14/25 08:22 Acetaminophen 325 Mg Tablet PO 03/04/25 15:11 Q6H PRN Fever >99.9 Atorvastatin Calcium 40 mg 02/14/25 08:22 Atorvastatin Calcium 20 Mg Tablet PO 03/13/25 08:59 HS ROBIBE Citric Acid/Sodium Citrate 30 ml 02/14/25 08:22 02/14/25 08:31 Citric Acid/Sodium Citr 15 Ml Udc (Bicitra) PO 03/10/25 08:59 30 ml BID ROBBIE Administration Desmopressin Acetate 2 mcg 02/12/25 11:45 02/14/25 08:45 Desmopressin Acetate 4 Mcg/Ml Vial IV 03/14/25 11:44 2 mcg QDAY ROBBIE Administration Dextrose 50 ml 02/02/25 17:28 02/07/25 06:11 Dextrose 50%-Water Inj 50 Ml Syringe IV 03/04/25 17:27 50 ml Q15MIN PRN Administration BG <50 OR BG <70 & pt unresponsive Fluticasone Propionate 2 spray 02/11/25 09:00 02/14/25 11:14 Fluticasone Javad Dyke 0.05% 16 Gm Btl NASAL 03/13/25 08:59 2 sprays DAILY ROBBIE Administration Glucagon 1 mg 02/02/25 17:28 Glucagon Inj 1 Mg Vial IM Q15MIN PRN BG <70, and no IV access Fat Emulsion Intravenous 500 mls @ 32 mls/hr 02/09/25 18:00 02/12/25 17:45 Intralipid 20% Iv IV 03/11/25 17:59 32 mls/hr [id number] ROBBIE Administration Thiamine HCl 250 mg/ Sodium 102.5 mls @ 210 mls/hr 02/12/25 14:00 02/14/25 13:34 Chloride IV 03/14/25 13:59 210 mls/hr TID ROBBIE Administration Multivitamins/Minerals 10 ml/ 2,049 mls @ 100 mls/hr 02/14/25 14:00 02/14/25 14:16 Potassium Phosphate 30 mmol/ IV 02/15/25 08:28 100 mls/hr Magnesium Sulfate 2 gm/ .[id number] ROBBIE Administration Potassium Acetate 50 meq/ Amino Acids Insulin Human Lispro 0 unit 02/14/25 07:30 02/14/25 11:59 Insulin Lispro (Admelog) 1 Unit/0.01 Ml Unit SC 03/16/25 07:29 Not Given ACHS ROBBIE Protocol Montelukast Sodium 10 mg 02/14/25 08:23 02/14/25 08:29 Montelukast Sodium 10 Mg Tablet PO 03/15/25 09:29 10 mg DAILY ROBBIE Administration Ondansetron HCl 4 mg 02/02/25 15:17 02/13/25 21:17 Ondansetron Inj 2 Mg/Ml Inj 2 Ml IVP 03/04/25 15:16 4 mg Q6H PRN Administration NAUSEA OR VOMITING Protocol Pantoprazole Sodium 40 mg 02/09/25 09:00 02/14/25 08:32 Pantoprazole Inj 40 Mg Vial IVP 03/11/25 08:59 40 mg BID ROBBIE Administration (Ipratropium Nezperce 2 ea 02/11/25 09:00 02/14/25 09:01 42 Mcg (0.06 %) NASAL 03/13/25 08:59 Not Given Dyke,Non-Aerosol BID ROBBIE Potassium Phos/Sodium Phos 1 packet 02/05/25 21:00 02/07/25 09:15 Naph,[facility] Mbdb 1 Packet (1.5 Gm) PO 03/07/25 20:59 Not Given On Hold: 02/07/25 10:47 BID ROBBIE Pyridoxine HCl 100 mg 02/11/25 10:15 02/14/25 08:31 Pyridoxine Inj 100 Mg/Ml Vial IV 03/13/25 10:14 100 mg QDAY ROBBIE Administration Plan Summary: Logan Dye is a 44-year-old male with a past medical history of hypertension, GERD, allergies, asthma, hypercholesterolemia, 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 He was admitted for severe sepsis. #Acute encephalopathy-improving #Thiamine deficiency Significant improvement after oral supplementation. Thiamine levels low at <6. Patient presented with altered mental status, poor historian. anion gap of 25 and appeared to be compensating in a respiratory manner appropriate for metabolic acidosis, as VBG showed a pH of 7.55 and a pCO2 of 25 Patient denied dysuria, urine positive for 1+ protein, 2+ blood, 54 RBC, 24 white blood cells, leukocyte esterase positive CT abdomen pelvis was negative for hydronephrosis or ureteral calculi Urine and blood cultures negative, likely due to recent outpatient antibiotic course, Cocci serology negative EEG was nondiagnostic. No evidence of seizure-like activity. Brain MRI Negative for acute hemorrhage or acute infarct. Echo on 02/04 showed EF 60-65%, no evidence of vegetations -MG workup including acetylcholine receptors and [facility] antibodies are pending - Continue IV thiaimine 250 mg TID for 5 days, then 100 mg QD - Pyridoxine 100 mg daily -PT daily -primary care team planning to dc PPN and start oral feeds -mentation slowly improving, LP deferred #Hypernatremia #Transaminitis #Elevated PT #Hyperammonemia (Resolved) #Elevated INR (Resolved) #Hyperthyroidism (Resolved) #Hyperglycemia (Resolved) #GERD #Hypercholesterolemia #Asthma #Acute anion gap metabolic acidosis (Resolved) #Non obstructing gallstones #distended small bowel loops Primary care team to manage above conditions and ongoing care needs. The patient's management plan was discussed with my attending physician Dr. Broderick. Amadna Turner, PGY-2 Attending Provider Attestation/Addendum I have seen and examined the patient at the bedside and I agreed with resident's findings, assessment and plan of care. Patient's mental status is gradually improving but still not back to baseline as per family. He continues to have generalized weakness and hoping that he will benefit from inpatient intensive rehab. His dysphagia has improved and is able to feed himself. His cognitive function is still not back to baseline, he is answering questions but with a long delay and noted intermittent confusion as well
== END 2025-02-18 18:00 | disposition skilled nursing facility (03) | DRG 720 ==
LOC: SERX 13:03 → SERHOLD 16:09 → S2NX 02-03 01:10
PROVIDERS: Specialist; Student in an Organized Health Care Education/Training Program; Admitting Provider Student in an Organized Health Care Education/Training Program; Emergency Provider Emergency Medicine; PCP Family Medicine; Visit Provider Student in an Organized Health Care Education/Training Program
PROC: (CPT 43239; principal; 2025-02-10 18:30)
DX: A41.9 Sepsis, unspecified organism (principal); R65.20 Severe sepsis without septic shock; G40.909 Epilepsy, unspecified, not intractable, without status epilepticus; E86.0 Dehydration; I10 Essential (primary) hypertension; K21.9 Gastro-esophageal reflux disease without esophagitis; J45.909 Unspecified asthma, uncomplicated; E78.00 Pure hypercholesterolemia, unspecified; K80.20 Calculus of gallbladder without cholecystitis without obstruction; N20.0 Calculus of kidney; E87.20 Acidosis, unspecified; R74.01 Elevation of levels of liver transaminase levels; E72.20 Disorder of urea cycle metabolism, unspecified; E05.90 Thyrotoxicosis, unspecified without thyrotoxic crisis or storm; R73.9 Hyperglycemia, unspecified; G93.41 Metabolic encephalopathy; E46 Unspecified protein-calorie malnutrition; E87.0 Hyperosmolality and hypernatremia; E87.6 Hypokalemia; E87.8 Other disorders of electrolyte and fluid balance, not elsewhere classified; E87.4 Mixed disorder of acid-base balance; E83.39 Other disorders of phosphorus metabolism; E83.42 Hypomagnesemia; E83.51 Hypocalcemia; D64.9 Anemia, unspecified; D75.839 Thrombocytosis, unspecified; D68.9 Coagulation defect, unspecified; K76.0 Fatty (change of) liver, not elsewhere classified; H70.13 Chronic mastoiditis, bilateral; D89.2 Hypergammaglobulinemia, unspecified; E51.2 Wernicke's encephalopathy; E87.1 Hypo-osmolality and hyponatremia; E88.09 Other disorders of plasma-protein metabolism, not elsewhere classified; K08.89 Other specified disorders of teeth and supporting structures; A53.9 Syphilis, unspecified; K56.699 Other intestinal obstruction unspecified as to partial versus complete obstruction; K31.811 Angiodysplasia of stomach and duodenum with bleeding; K56.0 Paralytic ileus; N17.9 Acute kidney failure, unspecified; N39.0 Urinary tract infection, site not specified; R13.10 Dysphagia, unspecified; Z56.0 Unemployment, unspecified; Z79.899 Other long term (current) drug therapy; Z78.1 Physical restraint status; Z91.148 Patient's other noncompliance with medication regimen for other reason; K56.41 Fecal impaction; Z87.11 Personal history of peptic ulcer disease
CPT/HCPCS: 36415; 36600; 70450; 70480; 70551; 71045; 74018; 74174; 74176; 74250; 76705; 77002; 80053; 80061; 80069; 80202; 80307; 80329; 81001; 82010; 82040; 82042; 82140; 82164; 82375; 82436; 82550; 82570; 82784; 82803; 82945; 83036; 83519; 83605; 83735; 83873; 83916; 84100; 84133; 84145; 84146; 84156; 84157; 84295; 84300; 84425; 84436; 84439; 84443; 84484; 84540; 85025; 85610; 85730; 86038; 86039; 86171; 86225; 86255; 86331; 86592; 86635; 86780; 87040; 87070; 87081; 87086; 87205; 87340; 87502; 87811; 89051; 92526; 92610; 93005; 93306; 94762; 95816; 96361; 96365; 96366; 96375; 97161; 99285; A4649; J0131; J0612; J0613; J0692; J0696; J1200; J1953; J2250; J2405; J2470; J2543; J2597; J3010; J3372; J3373; J3411; J3415; J3420; J3475; J3480; J3490; J7030; J7042; J7050; J7060; J7070; J7120; J7999; Q9967; A9270; G0480; J1836

== ENCOUNTER 2025-04-08 11:58 | Emergency (ER) | payer MEDICAID, SELFPAY ==
[2025-04-08 12:01] VITALS: PULSE 98; O2SAT 99
[2025-04-08 12:07] VITALS: BP 127/86; PULSE 88; RESP 18; TEMP 36.6; O2SAT 98
[2025-04-08 12:08] VITALS: BMI 32.3
--- NOTE | 2025-04-08 12:17 | EDNOTE_ITS ---
<Statement entered by Adrianna Medellin MD - 04/20/25 06:31> As co-signing physician, I was present and available for consult prn. I concur with the plan and care as documented by the midlevel provider. ED General RME/HPI General Chief complaint: Flu Like Symptoms Stated complaint: COLD/ FLU SYMPTOMS Time Seen by Provider: 04/08/25 12:09 Arrival date/time: 04/08/25 11:58 CC: Generalized weakness HPI patient presents to the ER via EMS who report mild hypertension no other specific complaints. Patient is coming from [facility], where it was reported that the patient was considered altered by the mother. Patient is exceedingly poor historian with a significant history of epilepsy since the age of 9 patient states he has some mild nausea and generalized weakness but is responding positive to all leading questions. Currently the patient denies chest pain or shortness of breath. At 1230, the mother is at bedside states the patient has had increased dizziness and decreased p.o. intake for the past week. Which was the concern for her as this is the similar symptoms to the last admission. Related Data Home Medications ?Medication ?Instructions ?Recorded ?Confirmed fluticasone propionate 50 2 spray intranasal DAILY 02/03/25 mcg/actuation nasal spray,suspension ipratropium bromide 42 mcg (0.06 2 spray intranasal BI D 12/19/24 02/03/25 %) nasal spray montelukast 10 mg tablet 10 mg PO DAILY 12/19/2401/08 Previous Rx's ?Medication ?Instructions ?Recorded ondansetron 4 mg disintegrating 4 mg PO Q8H PRN nausea and 01/11/25 tablet vomiting #14 tabs atorvastatin 20 mg tablet 40 mg (2 x 20 mg) PO HS #60 tabs 02/15/25 multivitamin (Daily Multi-Vitamin 1 tab PO QDAY #30 ta bs 02/15/25 tablet) pyridoxine (vitamin B6) 100 mg 100 mg PO QDAY #30 tabs 02/15/25 tablet thiamine HCl (vitamin B1) 100 mg 100 mg PO QDAY #30 ta bs 02/15/25 tablet metoclopramide HCl 5 mg tablet 5 mg PO QDAY #30 tabs 1 (Reglan) mirtazapine 7.5 mg tablet 7.5 mg PO QDAY #30 tabs 02/06 07/31 omeprazole 40 mg capsule,delayed 40 mg PO BID #30 caps 02/18/25 release sucralfate 1 gram tablet 1 g PO TID #90 tabs 02/18/25 ciprofloxacin HCl 500 mg tablet 500 mg PO BID #14 tabs 04/08/25 (Cipro) Allergies Allergy/AdvReac Type Severity Reaction Status Date / Time No Known Allergies Allergy Verified 04/08/25 12:10 Review of Systems Review of Systems ROS Unobtainable: unobtainable due to mental status Past Medical History Past Medical History NEUROLOGIC: Positive Seizures CARDIAC: Positive Cardiac Disorders and Hypercholesterolemia; Negative Congestive Heart Failure RESPIRATORY: Positive Asthma; Negative Chronic Obstructive Pulmonary Disease (COPD) GASTROINTESTINAL: Positive Gastroesophageal Reflux Disease GENITOURINARY: Positive Renal Disease ENDOCRINE: Negative Diabetes Mellitus Type 1 or Diabetes Mellitus Type 2 HEMATOLOGIC: Negative Sickle Cell Disease OTHER HISTORY: Negative Blood Transfusions, Blood Transfusion Reaction or Anesthesia Reactions Social History SMOKING STATUS: Never smoker SUBSTANCE USE: does not use ED Exam Narrative Physical exam: [General: Morbidly obese appears not in any acute distress Head normocephalic HEENT: Within acceptable limits Neck is supple nontender Chest equal chest rise nontender to palpation Respiratory: Clear to auscultation no wheezes crackles or rubs CV: Rate rhythm is regular no murmurs rubs or clicks Abdomen is distended secondary to body habitus soft nontender no masses positive bowel sounds all 4 quadrants Back: No CVA tenderness no spinous process tenderness from cervical spine thoracic and lumbar spine Skin: Intact no petechiae rash induration ulceration or crepitus Extremities: Deconditioned, moving all extremity poorly against resistance cap refill less than 2 seconds neurosensory intact Neuro: Awake alert oriented x2, person and place, Glascow coma 15 no focal deficits] Course Quality Measures none Orders Category Date Time Status EKG (ED ONLY) *Do not use* NOW Care 04/08/25 12:33 Completed EKG (ED Only) Stat Exams 04/08/25 12:33 Draft XR chest 1V Stat Exams 04/08/25 14:09 Completed B-Type Natriuretic Peptide Stat Lab 04/08/25 12:50 Completed CBC Stat Lab 04/08/25 12:50 Completed CMP [Comprehensive Metabolic Panel] Stat Lab 04/08/25 12:50 Completed Drug Screen,Urine Stat Lab 04/08/25 14:44 Completed LDH (Lactate Dehydrogenase) Stat Lab 04/08/25 12:50 Completed Magnesium Stat Lab 04/08/25 12:50 Completed Partial Thromboplastin Time Stat Lab 04/08/25 12:50 Completed Prothrombin Time with INR Stat Lab 04/08/25 12:50 Completed Urinalysis Stat Lab 04/08/25 14:44 Completed cefTRIAXone/D5w 1gm IV premix [Rocephin/D5w 1gm IV Med 04/08/25 15:21 Disconti nued premix] 1 gm in 50 ml IV X1 Vital Signs Vital signs: Vital Signs Temperature 97.9 F 04/08/25 12:07 Pulse Rate 88 04/08/25 12:07 Respiratory Rate 18 04/08/25 12:07 Blood Pressure 127/86 H 04/08/25 12:07 Pulse Oximetry (%) 98 04/08/25 12:07 Oxygen Delivery Method Room Air 04/08/25 12:07 Discharge Plan Plan Patient Disposition: HOME (Self Care) Patient condition on transfer: Stable Prescriptions/Referrals Prescriptions/Med Rec: New ciprofloxacin HCl [Cipro] 500 mg tablet 500 mg PO BID Qty: 14 0RF No Action fluticasone propionate 50 mcg/actuation spray,suspension 2 spray INTRANASAL DAILY ipratropium bromide 42 mcg (0.06 %) spray,non-aerosol 2 spray INTRANASAL BID montelukast 10 mg tablet 10 mg PO DAILY ondansetron 4 mg tablet,disintegrating 4 mg PO Q8H PRN (Reason: nausea and vomiting) Qty: 14 0RF atorvastatin 20 mg tablet 40 mg PO HS Qty: 60 0RF multivitamin [Daily Multi-Vitamin] Tablet 1 tab PO QDAY Qty: 30 0RF thiamine HCl (vitamin B1) 100 mg tablet 100 mg PO QDAY Qty: 30 0RF pyridoxine (vitamin B6) 100 mg tablet 100 mg PO QDAY Qty: 30 0RF sucralfate 1 gram tablet 1 g PO TID Qty: 90 0RF Rx Instructions: before meals or meds. metoclopramide HCl [Reglan] 5 mg tablet 5 mg PO QDAY Qty: 30 0RF mirtazapine 7.5 mg tablet 7.5 mg PO QDAY Qty: 30 0RF omeprazole 40 mg capsule,delayed release(DR/EC) 40 mg PO BID Qty: 30 0RF Referrals: Abdiel Esparza MD [Primary Care Provider, Family Practice] - In 1 week Problem List Clinical Impression: Urinary tract infection Patient/Caregiver Discharge Instructions Other Activity Instructions:: Take the medication as prescribed until completely gone drink plenty of water follow-up with your primary care doctor if there is worsening of symptoms in spite of these interventions return to the emergency room meetly for further evaluation. Education Materials: ED Bladder Infection, Male (Adult) Print Language: Setswana Stand Alone Forms: Judy Award Info., Work/School Release, Patient Portal Info Letter PA/SHIPFITTER HELPER Supervising Physician PA/SHIPFITTER HELPER Supervising Physician: Bhanu Beck ENP [facility] Clinical Information Provided by: patient and parent Medical Records reviewed [facility] Meds/Rx considered, not ordered None Labs/Rad/Tests considered, not ordered None Chronic Illness/Social Conditions Explain: Epilepsy debilitation EKG Interpretation EKG #1: EKG Interpretation: EKG performed at 1354 shows a ventricular rate of 89 MO interval 140 QRS of 8 4 QTc of 417 this normal sinus rhythm. Labs Labs: interpreted by in Lab(s) Interpretation(s): CBC shows mild leukocytosis of 14.0 H&H of 13.2 and 40.1 respectively no thro mbocytopenia Coags within acceptable limits CMP shows a chloride of 108 no other significant electrolyte imbalances renal impairment transaminitis or T. bili elevation. BMP is unremarkable. UDS is negative. Imaging Imaging interpretation: interpreted by in Imaging Interpretation(s): Chest x-ray is negative for any acute finding. Medication Administration(s) Medication Administration History Discontinued Medications Ceftriaxone Sodium/Dextrose (Rocephin/D5w 1gm Iv Premix) 1 gm in 50 mls @ 100 mls/hr IV X1 ONE Stop: 04/08/25 15:50 Last Infusion: 04/08/25 16:36 Dose: Infused Documented By: Admin: 04/08/25 16:06 Dose: 100 mls/hr Documented By: JOSE
--- NOTE | 2025-04-08 12:33 | EKG_ITS ---
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
[2025-04-08 13:21] LABS: Basophils # (Auto) 0.1 Thou/mm3 (0.0-0.2); Basophils % (Auto) 1 % (0-2.5); Eosinophils # (Auto) 0.3 Thou/mm3 (0.0-0.5); Eosinophils % (Auto) 2 % (0-10); Hematocrit 40.1 % (41.0-53.0); Hemoglobin 13.2 g/dL (13.5-16.0); Immature Granulocytes Auto 0.06 Thou/mm3 (0.00-0.00); Lymphocytes # (Auto) 4.1 Thou/mm3 (1.0-4.8); Lymphocytes % (Auto) 29 % (10-50); Mean Corpuscular HGB Conc 32.9 g/dl (31.0-37.0); Mean Corpuscular Hemoglobin 31.2 pg (25.0-35.0); Mean Corpuscular Volume 95 fL (80-100); Monocytes # (Auto) 0.8 Thou/mm3 (0.0-0.8); Monocytes % (Auto) 6 % (0-12); Neutrophils # (Auto) 8.7 Thou/mm3 (1.8-7.7); Neutrophils % (Auto) 62 % (37-80); Nucleated Red Blood Cell # 0.00 Thou/mm3 (0.00-0.00); Nucleated Red Blood Cell % 0 /100 WBC (0); Platelet Count 410 Thou/mm3 (140-440); RDW Standard Deviation 45.1 fL (35.1-43.9); Red Blood Count 4.23 Miln/mm3 (4.50-5.90); White Blood Count 14.0 Thou/mm3 (3.8-10.6)
[2025-04-08 13:36] LABS: INR 1.0 (0.9-1.3); Partial Thromboplastin Time 26.8 Seconds (22.0-36.0); Prothrombin Time 10.9 Seconds (9.0-12.2)
[2025-04-08 13:56] LABS: Alanine Aminotransferase 26 U/L (10-49); Albumin, Serum 4.1 gm/dL (3.5-5.0); Albumin/Globulin Ratio 1.5 (1.2-2.2); Alkaline Phosphatase 74 U/L (46-116); Anion Gap 9 (7-16); Aspartate Amino Transferase 24 U/L (0-34); BUN/Creatinine Ratio 8 Ratio (12-20); Bilirubin,Total 0.3 mg/dL (0.3-1.2); Blood Urea Nitrogen 7 mg/dL (9-23); Calcium 9.0 mg/dL (8.3-10.6); Calcium (Corrected) 9.0 mg/dL (8.5-10.1); Carbon Dioxide 25.2 mMol/L (20.0-31.0); Chloride 108 mMol/L (98-107); Creatinine (Component) 0.9 mg/dL (0.6-1.3); Estimated Creatinine Clearance 109.3 mL/min (>60); Globulin 2.7 gm/dL (2.3-3.5); Glucose 93 mg/dL (74-106); LDH (Lactate Dehydrogenase) 182 U/L (120-246); Magnesium 2.4 mg/dL (1.6-2.6); Osmolality,Calculated 281 (275-295); Potassium 4.5 mMol/L (3.4-5.1); Sodium 142 mMol/L (136-145); Total Protein 6.8 gm/dL (5.7-8.2); eGFR > 60 See Note
--- NOTE | 2025-04-08 14:09 | XR_ITS ---
EXAMINATION: AP chest single view TECHNIQUE: AP portable upright chest single view Date and time: April 08, 2025, 1427 hours, comparison February 11, 2025 INDICATIONS: Nausea weakness today FINDINGS: Normal heart size. Lungs are clear. Mild osteopenia. IMPRESSION: No active disease
[2025-04-08 14:48] LABS: Collection Type, Urine Clean Catch
[2025-04-08 14:56] LABS: B-Type Natriuretic Peptide < 20 pg/mL (0-100)
[2025-04-08 15:02] LABS: Amphetamine/Methamp Scrn,U Negative (Negative); Bacteria,Urine 1+; Barbiturate Screen,Urine Negative (Negative); Benzodiazepines Screen,Urine Negative (Negative); Benzoylecgonine Screen, Ur Negative (Negative); Bilirubin,Urine Negative (Negative); Blood,Urine 3+ (Negative); Calcium Oxalate Crystals,Urine 1+; Clarity,Urine Turbid (Clear/Hazy); Color,Urine Yellow (Lt Yel-Yel); Fentanyl Screen,Urine Negative (Negative); Glucose, Urine Negative (Negative); Hyaline Casts,Urine < 1 /hpf (0-1); Ketones,Urine Negative (Negative); Leukocyte Esterase,Urine Positive (Negative); Nitrite,Urine Negative (Negative); Opiate Screen,Urine Negative (Negative); PH,Urine 6.5 (5.0-7.0); Protein,Urine Trace (Neg - Trace); RBC,Urine 341 /hpf (0-3); Specific Gravity,Urine 1.020 (1.001-1.035); Squamous Epithelial Cell,Urine 5 /hpf (0-5); THC Screen,Urine Negative (Negative); Urobilinogen,Urine Negative mg/dL (0.0-1.0); WBC,Urine 13 /hpf (0-5)
[2025-04-08 15:27] VITALS: BP 130/83; PULSE 85; RESP 15; TEMP 36.3; O2SAT 95
[2025-04-08] MEDS: cefTRIAXone/D5w 1gm IV premix 1 GM/50 ML BAG IV (16:06)
--- NOTE | 2025-04-08 17:10 | PC.NURSE ---
Called for report to [facility] and spoke with nurse Trejo. The facility is expecting the patient's return with DC instructions being reviewed.
[2025-04-08 17:33] VITALS: BP 130/95; PULSE 100; RESP 16; TEMP 36.2; O2SAT 95
== END 2025-04-08 18:33 | disposition home or self-care (01) ==
PROVIDERS: Registered Nurse General Practice; Emergency Provider Emergency Medicine; PCP Family Medicine
DX: N39.0 Urinary tract infection, site not specified (principal); R11.0 Nausea; R53.1 Weakness; R94.31 Abnormal electrocardiogram [ECG] [EKG]; E78.00 Pure hypercholesterolemia, unspecified
CPT/HCPCS: 36415; 71045; 80053; 80307; 81001; 83615; 83735; 83880; 85025; 85610; 85730; 93005; 96365; 99283; J0696